=== PATIENT | female | born 1935 | race Caucasian/White ===

== ENCOUNTER 2023-10-26 13:52 | Outpatient (CLI) | payer MEDICARE, BC, SELFPAY | END 2023-10-26 13:53 | disposition home or self-care (01) | PROVIDERS: PCP Nurse Practitioner Family; Visit Provider Nurse Practitioner Family | DX: E11.9 Type 2 diabetes mellitus without complications (principal); Z13.0 Encounter for screening for diseases of the blood and blood-forming organs and certain disorders involving the immune mechanism | CPT/HCPCS: 80053; 80061; 82043; 82570; 84443; 85025 ==

== ENCOUNTER 2023-12-26 14:33 | Emergency (ER) | payer MEDICARE, BC, SELFPAY ==
[2023-12-26 14:39] VITALS: BP 180/99; PULSE 64; RESP 18; O2SAT 95; BMI 31.8
--- NOTE | 2023-12-26 14:50 | CT_ITS ---
Final Report Patient: MARGARITO TAYLOR Facility:?[facility] Patient ID:?[id number] Site Patient ID:?[id number]. Site :?[id number] Study:?CT Head W/O-12/26/2023 3:14:21 PM Ordering Physician:SARA Final Report: CLINICAL HISTORY: Fall on blood thinners. TECHNIQUE: Standard helical CT image acquisition of the brain was performed. COMPARISON: None available. FINDINGS: There is no intracranial hemorrhage. No extra-axial collection, mass effect, or midline shift. Quinones-white matter differentiation is preserved. Moderate generalized parenchymal volume loss with resulting prominence of cerebral sulci and the ventricular system. Patchy and confluent hypoattenuation in the white matter of both hemispheres likely reflect sequela of chronic small vessel ischemia. Intracranial atherosclerotic calcification. No displaced calvarial fracture. Thinning of the ocular lenses. Mild mucosal thickening of the inferior maxillary sinuses. The mastoid air cells are unremarkable. The soft tissues are unremarkable. IMPRESSION: 1. No CT evidence of acute intracranial abnormality or closed head injury. 2. Senescent changes including generalized parenchymal volume loss and findings likely reflecting sequela of chronic small vessel ischemia. Please note that all CT scans at this facility use dose modulation, iterative reconstruction, and/or weight-based dosing when appropriate to reduce radiation dose to as low as reasonably achievable. Dictated by Sajan Ramírez MD @ 12/26/2023 3:34:08 PM (Electronic Signature)
--- NOTE | 2023-12-26 15:07 | XR_ITS ---
Patient: MARGARITO TAYLOR Facility:?[facility] Patient ID:?[id number] Site Patient [id number]:?[id number]. Site :?[id number] Study:?XRay-Extremity Left SHOSEAN-12/26/2023 3:32:28 PM Ordering Physician:SARA Final Report: INDICATION: Fall, left shoulder pain. TECHNIQUE: Three views of the left shoulder. FINDINGS: No acute left shoulder fracture or dislocation. 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 Subacromial narrowing and spurring compatible with rotator cuff arthropathy. Dictated by Pablo Patel MD @ 12/26/2023 5:45:55 PM Signed by:?Pablo Patel MD @12/26/2023 5:45:55 PM (Electronic Signature)
--- NOTE | 2023-12-26 15:08 | ED.GENADULT ---
HPI - General Adult General Chief complaint: Extremity Pain/Injury, Upper Stated complaint: Fall, L shoulder injury Time Seen by Provider: 12/26/23 14:38 History of Present Illness HPI narrative: This 88-year-old female comes in for evaluation after a fall that occurred just prior to arrival. She states that she got wobbly and lost her balance and fell onto her left side. She did bump her head but did not have any loss of consciousness and does not have any headache. She got some assistance to get up and has ambulated since the fall. She is reporting pain primarily in her left shoulder. She is on Eliquis for atrial fibrillation. She does not report any other injury. Related Data Home Medications Medication Instructions Recorded Confirmed apixaban 2.5 mg tablet (Eliquis) 2.5 mg PO BID 10/26/23 12/26/23 escitalopram oxalate 10 mg tablet 10 mg PO QDAY 10/26/23 10/26/23 furosemide 20 mg tablet 20 mg PO DAILY 10/26/23 10/26/23 insulin glargine 100 unit/mL (3 17 unit subcut QDAY 10/26/23 12/26/23 mL) subcutaneous pen (Lantus Solostar U-100 Insulin) isosorbide mononitrate 30 mg 30 mg PO QAM 10/26/23 10/26/23 tablet,extended release 24 hr lubiprostone 24 mcg capsule 24 mcg PO BID 10/26/23 12/26/23 lubiprostone 8 mcg capsule 8 mcg PO QDAY PRN 10/26/23 12/26/23 (Amitiza) metoprolol tartrate 25 mg tablet 12.5 mg PO BID 10/26/23 12/26/23 mirtazapine 15 mg tablet 15 mg PO QPM 10/26/23 12/26/23 omeprazole 40 mg capsule,delayed 40 mg PO DAILY 10/26/23 12/26/23 release oxycodone 10 mg tablet 10 mg PO Q8H PRN pain 10/26/23 12/26/23 pen needle, diabetic 32 gauge x #100 ea 10/26/23 10/26/2311/11 (BD Ultra-Fine Micro Pen Needle) pregabalin 50 mg capsule (Lyrica) 50 mg PO BID 10/26/23 12/26/23 sennosides 8.6 mg-docusate sodium 1 tab PO BID 10/26/23 10/26/23 50 mg tablet (Senna Plus) Allergies Allergy/AdvReac Type Severity Reaction Status Date / Time diatrizoate meglumine Allergy Hives Verified 12/26/23 14:44 phenobarbital Allergy Verified 12/26/23 14:44 propoxyphene [From Darvon] Allergy Verified 12/26/23 14:44 contrast AdvReac Unknown Uncoded 12/26/23 14:45 Review of Systems Status of ROS: Reports: 10 or more systems reviewed and unremarkable except as noted in History and below Narrative: Constitutional: No fevers, no weight gain or loss. Eyes: No discharge. No vision changes. HENT: No congestion, no sore throat, no ear pain. Cardiovascular: No chest pain, no palpitations. Respiratory: No shortness of breath, no wheezes, no cough. Gastrointestinal: No abdominal pain, no vomiting, no diarrhea. Genitourinary: No dysuria, no hematuria. Musculoskeletal: Diffuse left shoulder pain. Skin: No rashes, no pruritis. Neurological: No dizziness, weakness, sensory change, speech change. Endo/Heme/Allergies: No bruising or bleeding. No polydipsia. Pysch: no suicidality, no anxiety, no insomnia. All other systems reviewed and are negative. PFSH PFS Surgical History (Updated 11/23/23 @ 15:19 by Anisa Matthews APRN, [employer]CHO[employer] COMMISSIONER) History of appendectomy ?Z90.49 - Acquired absence of other specified parts of digestive tract (ICD-10) History of hysterectomy ?Z90.710 - Acquired absence of both cervix and uterus (ICD-10) Spinal cord stimulator status ?Z96.89 - Presence of other specified functional implants (ICD-10) History of carpal tunnel release ?Z98.890 - Other specified postprocedural states (ICD-10) History of permanent cardiac pacemaker placement ?Z95.0 - Presence of cardiac pacemaker (ICD-10) History of knee replacement ?Z96.659 - Presence of unspecified artificial knee joint (ICD-10) Family History (Updated 11/03/23 @ 06:15 by Anisa Matthews APRN, SCHOOL COMMISSIONER) Father Heart disease Mother Heart disease Breast cancer Son Colon cancer, Onset Age: 47 Social History (Updated 11/03/23 @ 06:10 by Anisa Matthews APRN, SCHOOL COMMISSIONER) Narrative: The patient is . 2 children. Limited exercise. Non-smoker. Alcohol rare. No illicit drug use. Exam Narrative: Exam Narrative: Constitutional: Well-developed, well-nourished, no acute distress. HEENT: Normocephalic, atraumatic. Neck: Normal range of motion. Nontender. Supple. Heart: Regular. No murmurs. Normal rate. Intact distal pulses. Lungs: Clear to auscultation. No chest discomfort. No wheezes, rhonchi, or rales. Abdomen: Normal bowel sounds. Nontender. No rebound tenderness. Genitalia: Deferred. Back: No midline tenderness. Normal range of motion. Extremities: Diffuse pain in the left shoulder without sign of obvious deformity. Skin: Intact. No rash. Warm. No erythema or pallor. Neurologic: No altered sensation. No weakness. Alert and oriented. Psychiatric: No suicidality. No anxiety or depression. No insomnia. Nursing notes and vitals signs are reviewed. Const: Vital Signs, click to edit/add: Vital Signs - 24 hr 12/26/23 14:39 12/26/23 15:38 12/26/23 16:06 Pulse Rate 64 75 Pulse Rate [Right Pulse Oximeter] 64 Respiratory Rate 18 Blood Pressure Blood Pressure [Ri ght Upper Arm] 180/99 H Pulse Oximetry 95 96 95 Oxygen Delivery Me thod Room Air 12/26/23 16:08 Pulse Rate 67 Pulse Rate [Right Pulse Oximeter] Respiratory Rate Blood Pressure 177/85 H Blood Pressure [Ri ght Upper Arm] Pulse Oximetry 97 Oxygen Delivery Me thod Course Vital Signs Vital signs: Initial Vital Signs Temperature Source Temporal Artery Scan 12/26/23 14:39 Pulse Rate 64 12/26/23 14:39 Respiratory Rate 18 12/26/23 14:39 Blood Pressure 180/99 H 12/26/23 14:39 Blood Pressure Mean 126 H 12/26/23 14:39 Blood Pressure Position Sitting 12/26/23 14:39 Pulse Oximetry 95 12/26/23 14:39 Oxygen Delivery Method Room Air 12/26/23 14:39 Vital Signs Pulse Rate 64 12/26/23 14:39 Respiratory Rate 18 12/26/23 14:39 Blood Pressure 180/99 H 12/26/23 14:39 Pulse Oximetry 95 12/26/23 14:39 Oxygen Delivery Method Room Air 12/26/23 14:39 Pulse Rate 67 12/26/23 16:08 Respiratory Rate 18 12/26/23 14:39 Blood Pressure 177/85 H 12/26/23 16:08 Pulse Oximetry 97 12/26/23 16:08 Oxygen Delivery Method Room Air 12/26/23 14:39 Medical Decision Making MDM Narrative Medical decision making narrative: This patient comes in for evaluation of injuries from a fall that occurred just prior to arrival. Her primary area of discomfort is her left shoulder. A CT scan of her head is obtained as she did bump her head but did not have loss of consciousness and she is also on anticoagulants. CT imaging and x-ray of the left shoulder by my review show no acute findings. The patient normally takes oxycodone 3 times a day. She did receive a 5 mg tablet here and will be able to use that regular medicine for her for ongoing management of pain from this injury. She also received a sling for her left upper extremity. Discharge Plan Discharge Clinical Impression: Contusion of left shoulder Patient Disposition: Home w/ Parent or Adult Condition: Stable Additional Instructions: Wear sling as needed. Increase activity as tolerated. Use pain medicines also as prescribed and needed. Return if worsening. Prescriptions: No Action pregabalin [Lyrica] 50 mg capsule 50 mg PO BID lubiprostone [Amitiza] 8 mcg capsule 8 mcg PO QDAY PRN Eliquis 2.5 mg tablet 2.5 mg PO BID escitalopram oxalate 10 mg tablet 10 mg PO QDAY furosemide 20 mg tablet 20 mg PO DAILY insulin glargine [Lantus Solostar U-100 Insulin] 100 unit/mL (3 mL) insulin pen 17 unit subcut QDAY isosorbide mononitrate 30 mg tablet extended release 24 hr 30 mg PO QAM lubiprostone 24 mcg capsule 24 mcg PO BID metoprolol tartrate 25 mg tablet 12.5 mg PO BID mirtazapine 15 mg tablet 15 mg PO QPM omeprazole 40 mg capsule,delayed release(DR/EC) 40 mg PO DAILY oxycodone 10 mg tablet 10 mg PO Q8H PRN (Reason: pain) sennosides-docusate sodium [Senna Plus] 8.6-50 mg tablet 1 tab PO BID (DME) pen needle, diabetic [BD Ultra-Fine Micro Pen Needle] 32 gauge x 1/4 needle See Rx Instructions .ROUTE DAILY Qty: 100 Rx Instructions: As directed Follow Up/Referrals: Anisa Matthews APRN, SCHOOL COMMISSIONER [Primary Care Provider] - Stand Alone Forms: MyHealth Info Instructions
[2023-12-26 15:38] VITALS: PULSE 64; O2SAT 96
[2023-12-26 16:06] VITALS: PULSE 75; O2SAT 95
[2023-12-26 16:08] VITALS: BP 177/85; PULSE 67; O2SAT 97
[2023-12-26] MEDS: OXYCODONE 5 MG TABLET PO (16:27)
== END 2023-12-26 16:28 | disposition home or self-care (01) ==
PROVIDERS: Emergency Provider Emergency Medicine Emergency Medical Services; PCP Nurse Practitioner Family
DX: S40.012A Contusion of left shoulder, initial encounter (principal); W18.30XA Fall on same level, unspecified, initial encounter
CPT/HCPCS: 70450; 73030; 99284; A9270

== ENCOUNTER 2023-12-30 14:46 | Emergency (ER) | payer MEDICARE, BC, SELFPAY ==
[2023-12-30 14:54] VITALS: BP 133/105; PULSE 80; RESP 18; TEMP 36.5; O2SAT 96; BMI 32.1
--- NOTE | 2023-12-30 15:11 | CT_ITS ---
Patient: MARGARITO TAYLOR Facility:?[facility] Patient ID:?[id number] Site Patient ID:?[id number]. Site :?[id number] Study:?CT-Head W/O-12/30/2023 5:10:26 PM Ordering Physician:ELLEN Final Report: INDICATION: Fall. TECHNIQUE: CT head without contrast. COMPARISON: December 26, 2023.. FINDINGS: CSF spaces: Diffuse parenchymal volume loss Brain parenchyma and extra-axial spaces: Chronic white matter ischemic disease. The frias-white differentiation is normal. No sign of mass, hemorrhage, or midline shift. No extra-axial fluid collection. Skull base and calvarium: The visualized paranasal sinuses and mastoid air cells demonstrate no acute or significant findings. The visualized orbits are grossly unremarkable. No skull fractures. IMPRESSION: No acute intracranial abnormality or significant interval change when compared to prior study. Diffuse parenchymal volume loss and white matter ischemic disease. Please note that all CT scans at this facility use dose modulation, iterative reconstruction, and/or weight-based dosing when appropriate to reduce radiation dose to as low as reasonably achievable. Dictated by Joel Kim MD @ 12/30/2023 5:37:01 PM Signed by:?Joel Kim MD @12/30/2023 5:37:01 PM (Electronic Signature)
--- NOTE | 2023-12-30 15:24 | ED.GENADULT ---
HPI - General Adult General Date Seen: 12/30/23 Chief complaint: Weakness Stated complaint: Lethargy, confusion, short of breath Time Seen by Provider: 12/30/23 14:47 Source: patient, RN notes reviewed and old records reviewed Mode of arrival: ambulatory Limitations: no limitations History of Present Illness HPI narrative: Patient is an 88-year-old female who was here on December 26 after mechanical fall with left shoulder injury. She did hurt her head, she is anticoagulated and she had a head CT as well as x-rays of the left shoulder both of which were negative. She notes that she has ongoing left shoulder pain. Her daughter was concerned because she says she is sleeping a lot and has been forgetting to take her medications. Patient denies headache or vomiting. Her only complaint is left shoulder pain. She says she was relaxing at home when her daughter came to get her to bring her to the ER. She has no fevers, cough, difficulty breathing, chest pain, vomiting or diarrhea. She does note frequent urination overnight, no dysuria. She has [place] diuretic that she takes only as needed and says she has not taken any the past couple of days. Related Data Home Medications Medication Instructions Recorded Confirmed apixaban 2.5 mg tablet (Eliquis) 2.5 mg PO BID 10/26/23 12/26/23 escitalopram oxalate 10 mg tablet 10 mg PO QDAY 10/26/23 10/26/23 furosemide 20 mg tablet 20 mg PO DAILY 10/26/23 10/26/23 insulin glargine 100 unit/mL (3 17 unit subcut QDAY 10/26/23 12/26/23 mL) subcutaneous pen (Lantus Solostar U-100 Insulin) isosorbide mononitrate 30 mg 30 mg PO QAM 10/26/23 10/26/23 tablet,extended release 24 hr lubiprostone 24 mcg capsule 24 mcg PO BID 10/26/23 12/26/23 lubiprostone 8 mcg capsule 8 mcg PO QDAY PRN 10/26/23 12/26/23 (Amitiza) metoprolol tartrate 25 mg tablet 12.5 mg PO BID 10/26/23 12/26/23 mirtazapine 15 mg tablet 15 mg PO QPM 10/26/23 12/26/23 omeprazole 40 mg capsule,delayed 40 mg PO DAILY 10/26/23 12/26/23 release oxycodone 10 mg tablet 10 mg PO Q8H PRN pain 10/26/23 12/26/23 pen needle, diabetic 32 gauge x #100 ea 10/26/23 10/26/23/ (BD Ultra-Fine Micro Pen Needle) pregabalin 50 mg capsule (Lyrica) 50 mg PO BID 10/26/23 12/26/23 sennosides 8.6 mg-docusate sodium 1 tab PO BID 10/26/23 10/26/23 50 mg tablet (Senna Plus) Allergies Allergy/AdvReac Type Severity Reaction Status Date / Time diatrizoate meglumine Allergy Hives Verified 12/26/23 14:44 phenobarbital Allergy Verified 12/26/23 14:44 propoxyphene [From Darvon] Allergy Verified 12/26/23 14:44 contrast AdvReac Unknown Uncoded 12/26/23 14:45 Review of Systems Status of ROS: Reports: 10 or more systems reviewed and unremarkable except as noted in History and below PFSH PFSH Surgical History History of appendectomy ?Z90.49 - Acquired absence of other specified parts of digestive tract (ICD-10) History of hysterectomy ?Z90.710 - Acquired absence of both cervix and uterus (ICD-10) Spinal cord stimulator status ?Z96.89 - Presence of other specified functional implants (ICD-10) History of carpal tunnel release ?Z98.890 - Other specified postprocedural states (ICD-10) History of permanent cardiac pacemaker placement ?Z95.0 - Presence of cardiac pacemaker (ICD-10) History of knee replacement ?Z96.659 - Presence of unspecified artificial knee joint (ICD-10) Family History Father Heart disease Mother Heart disease Breast cancer Son Colon cancer, Onset Age: 47 Social History Narrative: The patient is . 2 children. Limited exercise. Non-smoker. Alcohol rare. No illicit drug use. Smoking Status: Never smoker Do you use any of these nicotine containing products: None How often do you have a drink containing alcohol: never How often do you have six or more drinks on one occasion: Never AUDIT-C Alcohol total score: 0 Non-prescribed substance use: denies use Exam Narrative: Exam Narrative: Vital signs as noted above. In general, an alert, well-appearing patient. Head: Normocephalic, atraumatic. Eyes: Pupils are equal reactive. Extraocular movements are full. Conjunctivae are normal. ENT: Mucous membranes are moist. Neck: Supple without lymphadenopathy. Heart: Regular rate and rhythm. No murmur or rub. Lungs: Clear bilaterally. No increased work of breathing, crackles or wheezes. Abdomen: Soft and nontender. No organomegaly. Extremities: Trace edema in both ankles. No calf tenderness or erythema. On the left she has little bit of bruising seen in the anterior shoulder. She has limited range of motion both active and passive secondary to pain. Neurologic: Patient is alert and oriented to person and place. Speech is fluent. Face is symmetric. Moves all extremities equally. Affect: Normal. Skin: Warm and dry. Well perfused. Const: Vital Signs, click to edit/add: Vital Signs - 24 hr 12/30/23 14:54 12/30/23 17:10 Temperature 97.7 F Pulse Rate [Left P ulse Oximeter] 80 63 Respiratory Rate 18 16 Blood Pressure [Le ft Upper Arm] 133/105 H 135/69 Pulse Oximetry 96 94 Oxygen Delivery Me thod Room Air Room Air Documenting provider has reviewed patient's vital signs: yes Course Course ED Course: I did repeat her head CT given that her daughter feels that she is more somnolent than usual and that she is anticoagulated. By my review there is no evidence of hemorrhage. Final radiology read shows no acute intracranial abnormalities or significant interval change. Labs are notable for a normal white blood cell count of 6, hemoglobin of 13.4. Platelets are little low 129,000. Sodium is 132, BUN 38 creatinine 1.3. Electrolytes otherwise normal. Her blood sugars elevated at 425. Her daughter says that her blood sugars are not well controlled because she does not follow any kind of diabetic diet. She is on insulin at home. Urine shows glucose but she does not have any ketones. Her CO2 is 26. There is no evidence here of ketoacidosis or hyperosmolar coma. She does sleep when not being interacted with but wakes easily to voice. Continues to answer questions appropriately. Urine does look probably infected with 5-10 red cells and greater than 100 white blood cells, many bacteria. COVID influenza and RSV are negative. She is afebrile here, neurologic exam is nonfocal, vital signs are unremarkable. I do think it is reasonable for her to go home on an oral antibiotic. Discussed that she may need help with her medications for the next couple of days as her daughter says she has not been good about taking them, and I would like her to take the antibiotic as prescribed. Reviewed with her daughter that if she is not improving, develops new symptoms such as fevers, chills, vomiting, or is not responding normally when interacted with, she should return to the emergency department. With regard her shoulder, I reviewed those x-rays, she does have significant arthritis are ready, she is very hesitant to move the shoulder at all because of pain and I do think she is high risk for frozen shoulder. Recommend orthopedic follow-up, an injection may be helpful for her to improve mobility. Tylenol and ice as needed. Vital Signs Vital signs: Initial Vital Signs Temperature 97.7 F 12/30/23 14:54 Temperature Source Temporal Artery Scan 12/30/23 14:54 Pulse Rate 80 12/30/23 14:54 Pulse Rhythm Regular 12/30/23 14:54 Pulse Strength 3+ Normal 12/30/23 14:54 Respiratory Rate 18 12/30/23 14:54 Blood Pressure 133/105 H 12/30/23 14:54 Blood Pressure Mean 114 H 12/30/23 14:54 Blood Pressure Position Sitting 12/30/23 14:54 Pulse Oximetry 96 12/30/23 14:54 Oxygen Delivery Method Room Air 12/30/23 14:54 Vital Signs Temperature 97.7 F 12/30/23 14:54 Pulse Rate 80 12/30/23 14:54 Respiratory Rate 18 12/30/23 14:54 Blood Pressure 133/105 H 12/30/23 14:54 Pulse Oximetry 96 12/30/23 14:54 Oxygen Delivery Method Room Air 12/30/23 14:54 Temperature 97.7 F 12/30/23 14:54 Pulse Rate 63 12/30/23 17:10 Respiratory Rate 16 12/30/23 17:10 Blood Pressure 135/69 12/30/23 17:10 Pulse Oximetry 94 12/30/23 17:10 Oxygen Delivery Method Room Air 12/30/23 17:10 Medical Decision Making Lab Data Labs: Lab Results 12/30/23 12/30/23 12/30/23 Range/Units 16:13 16:35 16:45 WBC 6.11 (4.50-11.00) K/uL RBC 4.74 (4.00-5.20) m/uL Hgb 13.4 (12.0-16.0) gm/dL Hct 39.5 (33.0-51.0) % MCV 83 (80-100) fL MCH 28 (26-34) pg MCHC 34 (32-36) gm/dL RDW Coeff of [place] 12.4 (11.5-15.5) % Plt Count 129 L (140-440) K/uL Neut % (Auto) 73.4 H (42.0-72.0) % Lymph % (Auto) 16.4 L (20-44) % [place] % (Auto) 9.0 (0.0-11.0) % Eos % (Auto) 0.7 (0.0-7.0) % Baso % (Auto) 0.3 (0.0-3.0) % Neut # (Auto) 4.50 (1.7-7.0) K/uL Lymph # (Auto) 1.00 (0.90-2.90) K/uL [place] # (Auto) 0.50 (0.00-0.90) K/UL Eos # (Auto) 0.04 (0.00-0.50) K/uL Baso # (Auto) 0.02 (0.00-0.30) K/uL Abs Immat Gran (auto) 0.01 (0.00-0.30) K/uL Imm/Tot Granulo (auto) 0.2 % Sodium 132 L (135-149) mmol/L Potassium 4.6 (3.6-5.1) mmol/L Chloride 98 (96-114) mmol/L Carbon Dioxide 26 (20-32) mmol/L Anion Gap 8 (7-15) mEq/L BUN 38 H (7-30) mg/dL Creatinine 1.3 (0.5-1.5) mg/dL Estimated Creat Clear 27.43 Estimated GFR 40 ml/min Glucose 425 H* (60-115) mg/dL Calcium 9.7 (8.4-10.6) mg/dL C-Reactive Protein 4.5 H (0.5-1.0) mg/dL Urine Color Yellow (Yellow) Urine Appearance (Clear) Urine pH (5.0-8.5) Ur Specific [place] (1.000-1.030) Urine Protein (Negative) Urine Glucose (UA) (Negative) Urine Ketones (Negative) Urine Blood (Negative) Urine Nitrite (Negative) Urine Bilirubin (Negative) Urine Urobilinogen (0.2-1.0) Ur Leukocyte Esterase (Negative) Urine RBC (0-2) Urine WBC (0-5) Urine WBC Clumps Ur Squamous Epith Cells (None-Few) [place] Biurate Crystals Calcium Carbonate Cryst Calcium Phosphate Cryst Calcium Oxalate Crystal Cystine Crystals Uric Acid Crystals Triple Phos Crystals Sulfur Crystals Cholesterol Crystals Tyrosine Crystals Hippuric Acid Crystals Amorphous Sediment Other Sediment Urine Bacteria (None) Fatty Casts Hyaline Casts Fine Granular Casts Coarse Granular Casts Waxy Casts RBC Casts WBC Casts Other Casts Urine Starch Urine Mucus Urine Trichomonas Urine Yeast SARS-CoV-2 (PCR) Negative SARS-CoV-2 (Negative) Influenza Type A (PCR) Negative PCR FLU A (Negative) Influenza Type B (PCR) Negative PCR FLU B (Negative) RSV (PCR) Negative PCR RSV (Negative) 12/30/23 12/30/23 12/30/23 Range/Units 16:45 16:45 16:45 WBC (4.50-11.00) K/uL RBC (4.00-5.20) m/uL Hgb (12.0-16.0) gm/dL Hct (33.0-51.0) % MCV (80-100) fL MCH (26-34) pg MCHC (32-36) gm/dL RDW Coeff of [place] (11.5-15.5) % Plt Count (140-440) K/uL Neut % (Auto) (42.0-72.0) % Lymph % (Auto) (20-44) % [place] % (Auto) (0.0-11.0) % Eos % (Auto) (0.0-7.0) % Baso % (Auto) (0.0-3.0) % Neut # (Auto) (1.7-7.0) K/uL Lymph # (Auto) (0.90-2.90) K/uL [place] # (Auto) (0.00-0.90) K/UL Eos # (Auto) (0.00-0.50) K/uL Baso # (Auto) (0.00-0.30) K/uL Abs Immat Gran (auto) (0.00-0.30) K/uL Imm/Tot Granulo (auto) % Sodium (135-149) mmol/L Potassium (3.6-5.1) mmol/L Chloride (96-114) mmol/L Carbon Dioxide (20-32) mmol/L Anion Gap (7-15) mEq/L BUN (7-30) mg/dL Creatinine (0.5-1.5) mg/dL Estimated Creat Clear Estimated GFR ml/min Glucose (60-115) mg/dL Calcium (8.4-10.6) mg/dL C-Reactive Protein (0.5-1.0) mg/dL Urine Color Cancelled (Yellow) Urine Appearance Slightly Cloudy A Cancelled (Clear) Urine pH 5.5 Cancelled (5.0-8.5) Ur Specific [place] 1.020 (1.000-1.030) Urine Protein (Negative) Urine Glucose (UA) (Negative) Urine Ketones (Negative) Urine Blood (Negative) Urine Nitrite (Negative) Urine Bilirubin (Negative) Urine Urobilinogen (0.2-1.0) Ur Leukocyte Esterase (Negative) Urine RBC (0-2) Urine WBC (0-5) Urine WBC Clumps Ur Squamous Epith Cells (None-Few) [place] Biurate Crystals Calcium Carbonate Cryst Calcium Phosphate Cryst Calcium Oxalate Crystal Cystine Crystals Uric Acid Crystals Triple Phos Crystals Sulfur Crystals Cholesterol Crystals Tyrosine Crystals Hippuric Acid Crystals Amorphous Sediment Other Sediment Urine Bacteria (None) Fatty Casts Hyaline Casts Fine Granular Casts Coarse Granular Casts Waxy Casts RBC Casts WBC Casts Other Casts Urine Starch Urine Mucus Urine Trichomonas Urine Yeast SARS-CoV-2 (PCR) (Negative) Influenza Type A (PCR) (Negative) Influenza Type B (PCR) (Negative) RSV (PCR) (Negative) 12/30/23 12/30/23 12/30/23 Range/Units 16:45 16:45 16:45 WBC (4.50-11.00) K/uL RBC (4.00-5.20) m/uL Hgb (12.0-16.0) gm/dL Hct (33.0-51.0) % MCV (80-100) fL MCH (26-34) pg MCHC (32-36) gm/dL RDW Coeff of [place] (11.5-15.5) % Plt Count (140-440) K/uL Neut % (Auto) (42.0-72.0) % Lymph % (Auto) (20-44) % [place] % (Auto) (0.0-11.0) % Eos % (Auto) (0.0-7.0) % Baso % (Auto) (0.0-3.0) % Neut # (Auto) (1.7-7.0) K/uL Lymph # (Auto) (0.90-2.90) K/uL [place] # (Auto) (0.00-0.90) K/UL Eos # (Auto) (0.00-0.50) K/uL Baso # (Auto) (0.00-0.30) K/uL Abs Immat Gran (auto) (0.00-0.30) K/uL Imm/Tot Granulo (auto) % Sodium (135-149) mmol/L Potassium (3.6-5.1) mmol/L Chloride (96-114) mmol/L Carbon Dioxide (20-32) mmol/L Anion Gap (7-15) mEq/L BUN (7-30) mg/dL Creatinine (0.5-1.5) mg/dL Estimated Creat Clear Estimated GFR ml/min Glucose (60-115) mg/dL Calcium (8.4-10.6) mg/dL C-Reactive Protein (0.5-1.0) mg/dL Urine Color (Yellow) Urine Appearance (Clear) Urine pH (5.0-8.5) Ur Specific [place] Cancelled (1.000-1.030) Urine Protein 1+ A Cancelled (Negative) Urine Glucose (UA) 3+ A Cancelled (Negative) Urine Ketones Negative (Negative) Urine Blood (Negative) Urine Nitrite (Negative) Urine Bilirubin (Negative) Urine Urobilinogen (0.2-1.0) Ur Leukocyte Esterase (Negative) Urine RBC (0-2) Urine WBC (0-5) Urine WBC Clumps Ur Squamous Epith Cells (None-Few) [place] Biurate Crystals Calcium Carbonate Cryst Calcium Phosphate Cryst Calcium Oxalate Crystal Cystine Crystals Uric Acid Crystals Triple Phos Crystals Sulfur Crystals Cholesterol Crystals Tyrosine Crystals Hippuric Acid Crystals Amorphous Sediment Other Sediment Urine Bacteria (None) Fatty Casts Hyaline Casts Fine Granular Casts Coarse Granular Casts Waxy Casts RBC Casts WBC Casts Other Casts Urine Starch Urine Mucus Urine Trichomonas Urine Yeast SARS-CoV-2 (PCR) (Negative) Influenza Type A (PCR) (Negative) Influenza Type B (PCR) (Negative) RSV (PCR) (Negative) 12/30/23 12/30/23 12/30/23 Range/Units 16:45 16:45 16:45 WBC (4.50-11.00) K/uL RBC (4.00-5.20) m/uL Hgb (12.0-16.0) gm/dL Hct (33.0-51.0) % MCV (80-100) fL MCH (26-34) pg MCHC (32-36) gm/dL RDW Coeff of [place] (11.5-15.5) % Plt Count (140-440) K/uL Neut % (Auto) (42.0-72.0) % Lymph % (Auto) (20-44) % [place] % (Auto) (0.0-11.0) % Eos % (Auto) (0.0-7.0) % Baso % (Auto) (0.0-3.0) % Neut # (Auto) (1.7-7.0) K/uL Lymph # (Auto) (0.90-2.90) K/uL [place] # (Auto) (0.00-0.90) K/UL Eos # (Auto) (0.00-0.50) K/uL Baso # (Auto) (0.00-0.30) K/uL Abs Immat Gran (auto) (0.00-0.30) K/uL Imm/Tot Granulo (auto) % Sodium (135-149) mmol/L Potassium (3.6-5.1) mmol/L Chloride (96-114) mmol/L Carbon Dioxide (20-32) mmol/L Anion Gap (7-15) mEq/L BUN (7-30) mg/dL Creatinine (0.5-1.5) mg/dL Estimated Creat Clear Estimated GFR ml/min Glucose (60-115) mg/dL Calcium (8.4-10.6) mg/dL C-Reactive Protein (0.5-1.0) mg/dL Urine Color (Yellow) Urine Appearance (Clear) Urine pH (5.0-8.5) Ur Specific [place] (1.000-1.030) Urine Protein (Negative) Urine Glucose (UA) (Negative) Urine Ketones Cancelled (Negative) Urine Blood 2+ A Cancelled (Negative) Urine Nitrite Positive A Cancelled (Negative) Urine Bilirubin Negative (Negative) Urine Urobilinogen (0.2-1.0) Ur Leukocyte Esterase (Negative) Urine RBC (0-2) Urine WBC (0-5) Urine WBC Clumps Ur Squamous Epith Cells (None-Few) [place] Biurate Crystals Calcium Carbonate Cryst Calcium Phosphate Cryst Calcium Oxalate Crystal Cystine Crystals Uric Acid Crystals Triple Phos Crystals Sulfur Crystals Cholesterol Crystals Tyrosine Crystals Hippuric Acid Crystals Amorphous Sediment Other Sediment Urine Bacteria (None) Fatty Casts Hyaline Casts Fine Granular Casts Coarse Granular Casts Waxy Casts RBC Casts WBC Casts Other Casts Urine Starch Urine Mucus Urine Trichomonas Urine Yeast SARS-CoV-2 (PCR) (Negative) Influenza Type A (PCR) (Negative) Influenza Type B (PCR) (Negative) RSV (PCR) (Negative) 12/30/23 12/30/23 12/30/23 Range/Units 16:45 16:45 16:45 WBC (4.50-11.00) K/uL RBC (4.00-5.20) m/uL Hgb (12.0-16.0) gm/dL Hct (33.0-51.0) % MCV (80-100) fL MCH (26-34) pg MCHC (32-36) gm/dL RDW Coeff of [place] (11.5-15.5) % Plt Count (140-440) K/uL Neut % (Auto) (42.0-72.0) % Lymph % (Auto) (20-44) % [place] % (Auto) (0.0-11.0) % Eos % (Auto) (0.0-7.0) % Baso % (Auto) (0.0-3.0) % Neut # (Auto) (1.7-7.0) K/uL Lymph # (Auto) (0.90-2.90) K/uL [place] # (Auto) (0.00-0.90) K/UL Eos # (Auto) (0.00-0.50) K/uL Baso # (Auto) (0.00-0.30) K/uL Abs Immat Gran (auto) (0.00-0.30) K/uL Imm/Tot Granulo (auto) % Sodium (135-149) mmol/L Potassium (3.6-5.1) mmol/L Chloride (96-114) mmol/L Carbon Dioxide (20-32) mmol/L Anion Gap (7-15) mEq/L BUN (7-30) mg/dL Creatinine (0.5-1.5) mg/dL Estimated Creat Clear Estimated GFR ml/min Glucose (60-115) mg/dL Calcium (8.4-10.6) mg/dL C-Reactive Protein (0.5-1.0) mg/dL Urine Color (Yellow) Urine Appearance (Clear) Urine pH (5.0-8.5) Ur Specific [place] (1.000-1.030) Urine Protein (Negative) Urine Glucose (UA) (Negative) Urine Ketones (Negative) Urine Blood (Negative) Urine Nitrite (Negative) Urine Bilirubin Cancelled (Negative) Urine Urobilinogen 0.2 Cancelled (0.2-1.0) Ur Leukocyte Esterase 1+ A Cancelled (Negative) Urine RBC 5-10 A (0-2) Urine WBC (0-5) Urine WBC Clumps Ur Squamous Epith Cells (None-Few) [place] Biurate Crystals Calcium Carbonate Cryst Calcium Phosphate Cryst Calcium Oxalate Crystal Cystine Crystals Uric Acid Crystals Triple Phos Crystals Sulfur Crystals Cholesterol Crystals Tyrosine Crystals Hippuric Acid Crystals Amorphous Sediment Other Sediment Urine Bacteria (None) Fatty Casts Hyaline Casts Fine Granular Casts Coarse Granular Casts Waxy Casts RBC Casts WBC Casts Other Casts Urine Starch Urine Mucus Urine Trichomonas Urine Yeast SARS-CoV-2 (PCR) (Negative) Influenza Type A (PCR) (Negative) Influenza Type B (PCR) (Negative) RSV (PCR) (Negative) 12/30/23 12/30/23 12/30/23 Range/Units 16:45 16:45 16:45 WBC (4.50-11.00) K/uL RBC (4.00-5.20) m/uL Hgb (12.0-16.0) gm/dL Hct (33.0-51.0) % MCV (80-100) fL MCH (26-34) pg MCHC (32-36) gm/dL RDW Coeff of [place] (11.5-15.5) % Plt Count (140-440) K/uL Neut % (Auto) (42.0-72.0) % Lymph % (Auto) (20-44) % [place] % (Auto) (0.0-11.0) % Eos % (Auto) (0.0-7.0) % Baso % (Auto) (0.0-3.0) % Neut # (Auto) (1.7-7.0) K/uL Lymph # (Auto) (0.90-2.90) K/uL [place] # (Auto) (0.00-0.90) K/UL Eos # (Auto) (0.00-0.50) K/uL Baso # (Auto) (0.00-0.30) K/uL Abs Immat Gran (auto) (0.00-0.30) K/uL Imm/Tot Granulo (auto) % Sodium (135-149) mmol/L Potassium (3.6-5.1) mmol/L Chloride (96-114) mmol/L Carbon Dioxide (20-32) mmol/L Anion Gap (7-15) mEq/L BUN (7-30) mg/dL Creatinine (0.5-1.5) mg/dL Estimated Creat Clear Estimated GFR ml/min Glucose (60-115) mg/dL Calcium (8.4-10.6) mg/dL C-Reactive Protein (0.5-1.0) mg/dL Urine Color (Yellow) Urine Appearance (Clear) Urine pH (5.0-8.5) Ur Specific [place] (1.000-1.030) Urine Protein (Negative) Urine Glucose (UA) (Negative) Urine Ketones (Negative) Urine Blood (Negative) Urine Nitrite (Negative) Urine Bilirubin (Negative) Urine Urobilinogen (0.2-1.0) Ur Leukocyte Esterase (Negative) Urine RBC Cancelled (0-2) Urine WBC >100 A Cancelled (0-5) Urine WBC Clumps Cancelled Ur Squamous Epith Cells Moderate A Cancelled (None-Few) [place] Biurate Crystals Cancelled Calcium Carbonate Cryst Cancelled Calcium Phosphate Cryst Cancelled Calcium Oxalate Crystal Cancelled Cystine Crystals Cancelled Uric Acid Crystals Cancelled Triple Phos Crystals Cancelled Sulfur Crystals Cancelled Cholesterol Crystals Cancelled Tyrosine Crystals Cancelled Hippuric Acid Crystals Cancelled Amorphous Sediment Cancelled Other Sediment Cancelled Urine Bacteria Many A (None) Fatty Casts Hyaline Casts Fine Granular Casts Coarse Granular Casts Waxy Casts RBC Casts WBC Casts Other Casts Urine Starch Urine Mucus Urine Trichomonas Urine Yeast SARS-CoV-2 (PCR) (Negative) Influenza Type A (PCR) (Negative) Influenza Type B (PCR) (Negative) RSV (PCR) (Negative) 12/30/23 Range/Units 16:45 WBC (4.50-11.00) K/uL RBC (4.00-5.20) m/uL Hgb (12.0-16.0) gm/dL Hct (33.0-51.0) % MCV (80-100) fL MCH (26-34) pg MCHC (32-36) gm/dL RDW Coeff of [place] (11.5-15.5) % Plt Count (140-440) K/uL Neut % (Auto) (42.0-72.0) % Lymph % (Auto) (20-44) % [place] % (Auto) (0.0-11.0) % Eos % (Auto) (0.0-7.0) % Baso % (Auto) (0.0-3.0) % Neut # (Auto) (1.7-7.0) K/uL Lymph # (Auto) (0.90-2.90) K/uL [place] # (Auto) (0.00-0.90) K/UL Eos # (Auto) (0.00-0.50) K/uL Baso # (Auto) (0.00-0.30) K/uL Abs Immat Gran (auto) (0.00-0.30) K/uL Imm/Tot Granulo (auto) % Sodium (135-149) mmol/L Potassium (3.6-5.1) mmol/L Chloride (96-114) mmol/L Carbon Dioxide (20-32) mmol/L Anion Gap (7-15) mEq/L BUN (7-30) mg/dL Creatinine (0.5-1.5) mg/dL Estimated Creat Clear Estimated GFR ml/min Glucose (60-115) mg/dL Calcium (8.4-10.6) mg/dL C-Reactive Protein (0.5-1.0) mg/dL Urine Color (Yellow) Urine Appearance (Clear) Urine pH (5.0-8.5) Ur Specific [place] (1.000-1.030) Urine Protein (Negative) Urine Glucose (UA) (Negative) Urine Ketones (Negative) Urine Blood (Negative) Urine Nitrite (Negative) Urine Bilirubin (Negative) Urine Urobilinogen (0.2-1.0) Ur Leukocyte Esterase (Negative) Urine RBC (0-2) Urine WBC (0-5) Urine WBC Clumps Ur Squamous Epith Cells (None-Few) [place] Biurate Crystals Calcium Carbonate Cryst Calcium Phosphate Cryst Calcium Oxalate Crystal Cystine Crystals Uric Acid Crystals Triple Phos Crystals Sulfur Crystals Cholesterol Crystals Tyrosine Crystals Hippuric Acid Crystals Amorphous Sediment Other Sediment Urine Bacteria Cancelled (None) Fatty Casts Cancelled Hyaline Casts Cancelled Fine Granular Casts Cancelled Coarse Granular Casts Cancelled Waxy Casts Cancelled RBC Casts Cancelled WBC Casts Cancelled Other Casts Cancelled Urine Starch Cancelled Urine Mucus Cancelled Urine Trichomonas Cancelled Urine Yeast Cancelled SARS-CoV-2 (PCR) (Negative) Influenza Type A (PCR) (Negative) Influenza Type B (PCR) (Negative) RSV (PCR) (Negative) Discharge Plan Discharge Clinical Impression: UTI (urinary tract infection), Hyperglycemia due to type 2 diabetes mellitus Patient Disposition: Home, Self-Care Condition: Stable Instructions: Urinary Tract Infection in Older Adults (ED) Additional Instructions: Antibiotic as prescribed for urinary tract infection. Continue your insulin as prescribed. I would recommend orthopedic follow-up for your shoulder as you have significant arthritis at baseline, and with your recent injury may benefit from an injection. Otherwise, Tylenol as needed. Ice may be helpful as well. Your repeat head CT remains unremarkable. For significant worsening, fevers, chills, vomiting, or other significant changes, return to the ER at any time for re-evaluation. Prescriptions: No Action pregabalin [Lyrica] 50 mg capsule 50 mg PO BID lubiprostone [Amitiza] 8 mcg capsule 8 mcg PO QDAY PRN Eliquis 2.5 mg tablet 2.5 mg PO BID escitalopram oxalate 10 mg tablet 10 mg PO QDAY furosemide 20 mg tablet 20 mg PO DAILY insulin glargine [Lantus Solostar U-100 Insulin] 100 unit/mL (3 mL) insulin pen 17 unit subcut QDAY isosorbide mononitrate 30 mg tablet extended release 24 hr 30 mg PO QAM lubiprostone 24 mcg capsule 24 mcg PO BID metoprolol tartrate 25 mg tablet 12.5 mg PO BID mirtazapine 15 mg tablet 15 mg PO QPM omeprazole 40 mg capsule,delayed release(DR/EC) 40 mg PO DAILY oxycodone 10 mg tablet 10 mg PO Q8H PRN (Reason: pain) sennosides-docusate sodium [Senna Plus] 8.6-50 mg tablet 1 tab PO BID (DME) pen needle, diabetic [BD Ultra-Fine Micro Pen Needle] 32 gauge x 1/4 needle See Rx Instructions .ROUTE DAILY Qty: 100 Rx Instructions: As directed Follow Up/Referrals: Anisa Matthews APRN, SYSTEMS COORDINATOR [Primary Care Provider] - [facility]
[2023-12-30 16:51] LABS: Basophils Absolute Auto 0.02 K/uL (0.00-0.30); Basophils Percent Auto 0.3 % (0.0-3.0); Eosinophils Absolute Auto 0.04 K/uL (0.00-0.50); Eosinophils Percent Auto 0.7 % (0.0-7.0); Hematocrit 39.5 % (33.0-51.0); Hemoglobin* 13.4 gm/dL (12.0-16.0); Immature Granulocytes Abs Auto 0.01 K/uL (0.00-0.30); Immature Granulocytes Pct Auto 0.2 %; Lymphocytes Percent Auto 16.4 % (20-44); Mean Corpuscular HGB Conc 34 gm/dL (32-36); Mean Corpuscular Hemoglobin 28 pg (26-34); Mean Corpuscular Volume 83 fL (80-100); Neutrophils Percent Auto 73.4 % (42.0-72.0); Platelet Count* 129 K/uL (140-440); RDW Coefficient of Variation % 12.4 % (11.5-15.5); Red Blood Count 4.74 m/uL (4.00-5.20); White Blood Count* 6.11 K/uL (4.50-11.00)
[2023-12-30 16:56] LABS: PCR FLU A Negative PCR FLU A (Negative); PCR FLU B Negative PCR FLU B (Negative); PCR RSV Negative PCR RSV (Negative); SARS PCR* Negative SARS-CoV-2 (Negative)
[2023-12-30 17:04] LABS: Bilirubin Urine Negative (Negative); Blood Urine 2+ (Negative); Color Urine Yellow (Yellow); Glucose Urine 3+ (Negative); Ketones Urine Negative (Negative); Leukocyte Esterase Urine 1+ (Negative); Nitrite Urine Positive (Negative); Protein Urine 1+ (Negative); Urobilinogen Urine 0.2 (0.2-1.0); pH Urine 5.5 (5.0-8.5)
[2023-12-30 17:07] LABS: Slide Review Reflex No
[2023-12-30 17:08] LABS: Appearance Urine Slightly Cloudy (Clear)
[2023-12-30 17:10] VITALS: BP 135/69; PULSE 63; RESP 16; O2SAT 94
[2023-12-30 17:11] LABS: Chloride* 98 mmol/L (96-114); Potassium* 4.6 mmol/L (3.6-5.1); Sodium* 132 mmol/L (135-149)
[2023-12-30 17:14] LABS: Creatinine* 1.3 mg/dL (0.5-1.5); Est. Creatinine Clearance* 27.43; Estimated Glomerular Filt Rate 40 ml/min
[2023-12-30 17:15] LABS: Anion Gap 8 mEq/L (7-15); Blood Urea Nitrogen* 38 mg/dL (7-30); Calcium* 9.7 mg/dL (8.4-10.6); Carbon Dioxide* 26 mmol/L (20-32)
[2023-12-30 17:16] LABS: WBC Urine >100 (0-5)
[2023-12-30 17:17] LABS: Bacteria Urine Many; Squamous Epithelial Cell Urine Moderate (None-Few)
[2023-12-30 17:18] LABS: C Reactive Protein* 4.5 mg/dL (0.5-1.0)
[2023-12-30 17:29] LABS: Glucose* 425 mg/dL (60-115)
[2023-12-30 19:04] LABS: TSH With Reflex to FT4* 0.653 uIU/mL (0.270-4.200)
== END 2023-12-30 18:30 | disposition home or self-care (01) ==
PROVIDERS: Emergency Provider Emergency Medicine; PCP Nurse Practitioner Family
DX: N39.0 Urinary tract infection, site not specified (principal); E11.65 Type 2 diabetes mellitus with hyperglycemia
CPT/HCPCS: 36415; 70450; 80048; 81001; 84443; 85025; 86140; 87086; 87186; 87631; 99284

== ENCOUNTER 2024-01-17 13:11 | Outpatient (CLI) | payer MEDICARE, BC, SELFPAY ==
--- NOTE | 2024-01-18 14:05 | PC.SOCIAL ---
Social work: Received referral from provider for social media marketing analyst to contact daughter regarding resources for support at home. Called daughter, Jasmyne George [phone], and discussed interest in having pt evaluated for eligibility for free home services or assisted living placement through the waiver program. Dtr states pt was evaluated four years ago for [employer] Care Assessment by the county she lived in at that time but was not eligible for [facility] programs due to her financial situation. Dtr states her financial situation has changed since that evaluation and requested a new Shelter Care Assessment. Dtr has already reached out to [facility] for home making assistance and is waiting for a call back. asbestos abatement worker offered to make online referral for [employer] Care Assessment through the [facility] [facility]. Dtr was appreciative of this suggestion. asbestos abatement worker emailed dtr information on [employer] Care Assessment, [facility], caregivers homecare care and home delivered meals. asbestos abatement worker completed online request for Shelter Care Assessment through [facility] (confirmation #[id number]). Dtr was provided with this social media marketing analyst's contact information if additional resources are needed.
== END 2024-01-17 13:12 | disposition home or self-care (01) ==
PROVIDERS: PCP Nurse Practitioner Family; Visit Provider Nurse Practitioner Family
DX: E11.9 Type 2 diabetes mellitus without complications (principal)
CPT/HCPCS: 82947

== ENCOUNTER 2024-02-24 13:20 | Outpatient (CLI) | payer MEDICARE, BC, SELFPAY | END 2024-02-24 13:21 | disposition home or self-care (01) | LOC: KYNREF 13:22 | PROVIDERS: PCP Nurse Practitioner Family; Visit Provider Nurse Practitioner Family | DX: R35.1 Nocturia (principal) | CPT/HCPCS: 81001; 87086 ==

== ENCOUNTER 2024-03-16 14:55 | Outpatient (CLI) | payer MEDICARE, BC, SELFPAY ==
--- NOTE | 2024-03-16 15:00 | XR_ITS ---
Patient: MARGARITO TAYLOR Facility:?[facility] Patient ID:?[id number] Site Patient ID:?[id number]. Site :?[id number] Study:?DEXA-Bone Density -03/16/2024 3:48:11 PM Ordering Physician:FLORENCIA Final Report: DXA BONE MINERAL DENSITY STUDY Reason for exam: Osteoporosis. Current height (in): 65.0 Weight (lb): 198.0 Menopause age: 51 Ethnicity: White. 1. Have you had a previous hip or vertebral fracture? No. 2. Have you had any fractures during your adult life which did not result from significant trauma (e.g., auto accident)? No. 3. Did either of your parents have a hip fracture? No. 4. Do you smoke? No. 5. Have you ever taken Glucocorticoids? No. 6. Do you have rheumatoid arthritis? No. 7. Do you have secondary osteoporosis? No. 8. Do you drink 3 or more alcoholic drinks per day? No. 9. Are you being treated for osteoporosis? No. 10. Have you ever taken any of the following medications: Actonel, Evista, Fosamax, Miacalcin, Reclast, Boniva, Forteo, HRT (i.e. estrogen/hormone therapy), Protelos, Prolia, Vitamin D, Calcium, other ? please specify. ANSWER: Yes. Vitamin D, Calcium. 11. Do you have any of the following medical conditions: Anorexia or bulimia, asthma or emphysema, end stage renal disease, hyperparathyroidism, any seizure disorders, cancer, inflammatory bowel diseases, hysterectomy, other ? please specify. ANSWER: Yes. Hysterectomy. 12. What was your maximum height (inches)? 67. 13. Do you perform weight bearing exercise regularly? No. 14. Do you regularly consume dairy products? Yes. 15. Do you drink caffeinated beverages? Yes. 16. At what age did your period start? 14. 17. Are you premenopausal? No. 18. How many full term pregnancies have you had? 3. 19. Have you ever missed your period for more than 6 months in a row (not including or menopause)? No. TECHNIQUE: Bone mineral density study was performed using the [employer]. FINDINGS: The results of the study expressed as bone mineral density (BMD) are as follows: Lumbar spine L1, L2, L4: BMD: 1.226 g/cm2. T-score: 1.7. Z-score: 4.6. Neck Left: BMD: 0.675 g/cm2. T-score: -1.6. Z-score: 1.0. Right: BMD: 0.541 g/cm2. T-score: -2.8. Z-score: -0.3. Total Left: BMD: 0.727 g/cm2. T-score: -1.8. Z-score: 0.6. Right: BMD: 0.733 g/cm2. T-score: -1.7. Z-score: 0.6. IMPRESSION: Osteoporosis. *Comparison exams done prior to 04/2020 were performed on different unit, [employer]. Dario Hernandez M.D. Diagnostic Radiologist [email or web address] DSM/reyes D& Transcribed: 9:54 a.m. PT/Dictated by: Dario Hernandze MD @ 03/20/2024 8:34:00 AM Signed by:?Dario Hernandez MD @03/20/2024 12:48:16 PM (Electronic Signature)
== END 2024-03-16 14:56 | disposition home or self-care (01) ==
LOC: RAD 14:56
PROVIDERS: PCP Nurse Practitioner Family; Visit Provider Nurse Practitioner Family
DX: Z13.820 Encounter for screening for osteoporosis (principal); M81.0 Age-related osteoporosis without current pathological fracture; Z78.0 Asymptomatic menopausal state
CPT/HCPCS: 77080

== ENCOUNTER 2024-06-29 13:31 | Outpatient (CLI) | payer MEDICARE, BC, SELFPAY | END 2024-06-29 13:32 | disposition home or self-care (01) | LOC: RAD 13:33 | PROVIDERS: PCP Nurse Practitioner Family; Visit Provider Internal Medicine | DX: I42.8 Other cardiomyopathies (principal); I35.1 Nonrheumatic aortic (valve) insufficiency; I34.0 Nonrheumatic mitral (valve) insufficiency; I31.39 Other pericardial effusion (noninflammatory) | CPT/HCPCS: 93306 ==

== ENCOUNTER 2024-12-22 14:48 | Observation (INO) | payer MEDICARE, BC, SELFPAY ==
[2024-12-22] VITALS (10 sets, daily range): BP systolic 112–161; BP diastolic 52–107; PULSE 60–82; RESP 16–18; TEMP 36.4–36.9; O2SAT 89–98; BMI 29.2
--- NOTE | 2024-12-22 15:06 | ED_ITS ---
HPI - General Adult General Chief complaint: Back Injury/Pain Stated complaint: Back pain at 100 today Time Seen by Provider: 12/22/24 14:52 History of Present Illness HPI narrative: patient is having increased chronic back pain has a stimulator and was concerned not working and then started to work again. patient has pain meds and did not take since last night oxycodone (?). feeling a little nauseated and had an episode of diarrhea. BS -115 per EMS and started #20 jelco as a saline lock in the LAC. patient lives at home with dog. 89-year-old woman healed left presenting to the emergency department via EMS with concern of worsening low back pain with radiation into both legs and feet. Has had a total of 6 back surgeries. She believes her spinal stimulator was placed at [facility] years ago. It sounds like about 3 weeks ago was admitted to [facility] with increasing low back pain. Ultimately discharged to [facility] and then home about 2 weeks ago. She reports that point her her spinal stimulator was malfunctioning require new battery and ?some other parts?. Now it seems to be ?burning me? when it is on or it is off and then she is not getting pain relief. At the time of our conversation is reportedly off. She is quite calm. She reports that her daughter has power of patent attorney and is managing her oxycodone. 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 Last oxycodone she received was yesterday morning she says. Daughter does not let her have them she says. She does say that she stays in bed and yells. She reports that she and her daughters preference is not to go back to [facility]. Her pain during our calm conversation is ?terrible?. Ordering Physician: Anisa FOWLER CNP Date of Service: 11/23/24 Procedure(s): XR sacrum coccyx min 2V Accession Number(s): [id number] cc: Anisa FOWLER CNP~ For Patients: As a result of the 21st Century Cures Act, medical imaging exams and procedure reports are released immediately into your electronic medical record. You may view this report before your referring provider. If you have questions, please contact your health care provider. Indication: Follow-up fracture Technique: Two views sacrum. Unable to get lateral view. Comparison: Outside exam not available IMPRESSION: Displaced fracture of the left superior pubic ramus. Additional fracture of the left inferior pubic ramus also appears to be present. Nondisplaced left sacral fracture noted. Dictated by Dario Hernandez MD @ 11/24/2024 8:43:10 AM I did call later to daughter to attempt to clarify recent events. On October 30 sustained a sacral fracture. Was hospitalized at [facility] and discharged to [facility] for rehabilitation. Is unclear at what point her spinal stimulator was not working but apparently the pedigree researcher the battery was malfunctioning, Hayde was not charging it. Upon return from senior care to home daughter got new battery/pedigree researcher. Hayde was ambulating without notable difficulty at this time. Since December 11 moving Hayde to a new place of residence be has been complaining of increasing burning pain in her right leg and the top of her right foot. And has been having trouble moving this leg corresponding with her pain. Only wants to stay in bed or maybe a wheelchair. They did try to use the stimulator but does not seem to be effective and when daughter turned up a couple of clicks appears to cause more pain. Seems to be functioning erratically. Daughter maintains that she has been giving her her oxycodone regularly contrary to what versus as. She does admit that mom is probably an addict. Primary care has been reluctant to adjust medications as Hayde has historically seen pain clinic. Today daughter did not know what to do is Hayde remains in bed screaming in pain and she had already received her pain medication. Called for EMS. Related Data Home Medications ?Medication ?Instructions ?Recorded ?Confirmed lubiprostone 24 mcg capsule 24 mcg PO BID 10/26/23 12/22/24 metoprolol tartrate 25 mg tablet 12.5 mg PO BID 10/26/23 12/22/24 pen needle, diabetic 32 gauge x #100 ea 10/26/23 12/14/2411/11 (BD Ultra-Fine Micro Pen Needle) sennosides 8.6 mg-docusate sodium 1 tab PO BID PRN 10/26/23 12/23/24 50 mg tablet (Senna Plus) pregabalin 50 mg capsule (Lyrica) 50 mg PO BID 03/02/24 12/23/24 diclofenac sodium 1 % topical gel 2 g topical QID PRN 11/23/24 12/23/24 insulin aspart U-100 100 unit/mL 6 unit subcut TID 11/23/24 12/22/24 subcutaneous solution (Novolog U-100 Insulin aspart) insulin glargine 100 unit/mL (3 14 unit subcut DAILY 11/23/24 12/23/24 mL) subcutaneous pen (Lantus Solostar U-100 Insulin) empagliflozin 10 mg tablet 10 mg PO QAM 12/23/24 12/23/24 (Jardiance) escitalopram oxalate 5 mg tablet 5 mg PO DAILY 12/23/24 12/23/24 (Lexapro) Previous Rx's ?Medication ?Instructions ?Recorded blood-glucose meter,continuous #1 ea 01/27/24 (Dexcom G7 Operations Developer) blood-glucose sensor (Dexcom G7 #9 ea 01/27/24 Sensor device) apixaban 2.5 mg tablet (Eliquis) 2.5 mg PO BID #180 tabs 02/03/24 omeprazole 40 mg capsule,delayed 40 mg PO BID #180 caps 03/22/24 release nystatin 100,000 unit/gram topical 1 applic topical BID #30 grams 10/30/24 cream meclizine 12.5 mg tablet 12.5 mg PO TID PRN dizziness 30 12/14/24 days #30 tabs oxycodone 5 mg tablet 5 mg PO Q4H pain 28 days #140 tabs 12/14/24 Allergies Allergy/AdvReac Type Severity Reaction Status Date / Time diatrizoate meglumine Allergy Hives Verified 12/22/24 15:04 phenobarbital Allergy Verified 12/22/24 15:04 propoxyphene (From Darvon) Allergy Verified 12/22/24 15:04 contrast AdvReac Unknown Uncoded 12/14/24 14:24 Review of Systems Status of ROS: Reports: 6 or more systems reviewed and unremarkable except as noted in History and below [facility] Medical History (Updated 12/24/24 @ 15:09 by Lotus Arreaga MD) Anxiety ?F41.9 - Anxiety disorder, unspecified (ICD-10) Closed L4 vertebral fracture ?S32.049A - Unspecified fracture of fourth lumbar vertebra, initial encounter for closed fracture (ICD-10) Bilateral sacral insufficiency fracture ?M84.48XA - Pathological fracture, other site, initial encounter for fracture (ICD-10) Cellulitis ?L03.90 - Cellulitis, unspecified (ICD-10) Type 2 diabetes mellitus ?E11.9 - Type 2 diabetes mellitus without complications (ICD-10) Hard of hearing ?H91.90 - Unspecified hearing loss, unspecified ear (ICD-10) Atrial fibrillation ?I48.91 - Unspecified atrial fibrillation (ICD-10) CHF (congestive heart failure) ?I50.9 - Heart failure, unspecified (ICD-10) Depression ?F32.A - Depression, unspecified (ICD-10) Constipation ?K59.00 - Constipation, unspecified (ICD-10) HTN (hypertension) ?I10 - Essential (primary) hypertension (ICD-10) Osteoarthritis ?M19.90 - Unspecified osteoarthritis, unspecified site (ICD-10) Neuropathy ?G62.9 - Polyneuropathy, unspecified (ICD-10) Nonischemic cardiomyopathy ?I42.8 - Other cardiomyopathies (ICD-10) Chronic renal insufficiency ?N18.9 - Chronic kidney disease, unspecified (ICD-10) Restless leg syndrome ?G25.81 - Restless legs syndrome (ICD-10) Recent urinary tract infection ?Z87.440 - Personal history of urinary (tract) infections (ICD-10) Left shoulder pain ?M25.512 - Pain in left shoulder (ICD-10) Nonadherence to medication ?Z91.148 - Patient's other noncompliance with medication regimen for other reason (ICD-10) Skin yeast infection ?B37.2 - Candidiasis of skin and nail (ICD-10) Fatigue ?R53.83 - Other fatigue (ICD-10) Cardiac pacemaker ?Z95.0 - Presence of cardiac pacemaker (ICD-10) Hx of sick sinus syndrome ?Z86.79 - Personal history of other diseases of the circulatory system (ICD- 10) Stage 3a chronic kidney disease ?N18.31 - Chronic kidney disease, stage 3a (ICD-10) Candidal intertrigo ?B37.2 - Candidiasis of skin and nail (ICD-10) Pressure injury of heel, stage 1 ?L89.601 - Pressure ulcer of unspecified heel, stage 1 (ICD-10) GERD (gastroesophageal reflux disease) ?K21.9 - Gastro-esophageal reflux disease without esophagitis (ICD-10) Sacral fracture ?S32.10XA - Unspecified fracture of sacrum, initial encounter for closed fracture (ICD-10) Dizziness ?R42 - Dizziness and giddiness (ICD-10) Pressure sore ?L89.90 - Pressure ulcer of unspecified site, unspecified stage (ICD-10) Health care directive on file ?Z78.9 - Other specified health status (ICD-10) Sick sinus syndrome ?I49.5 - Sick sinus syndrome (ICD-10) Surgical History History of amputation of toe ?Z89.429 - Acquired absence of other toe(s), unspecified side (ICD-10) History of appendectomy ?Z90.49 - Acquired absence of other specified parts of digestive tract (ICD- 10) History of hysterectomy ?Z90.710 - Acquired absence of both cervix and uterus (ICD-10) Spinal cord stimulator status ?Z96.89 - Presence of other specified functional implants (ICD-10) History of carpal tunnel release ?Z98.890 - Other specified postprocedural states (ICD-10) History of permanent cardiac pacemaker placement ?Z95.0 - Presence of cardiac pacemaker (ICD-10) History of knee replacement ?Z96.659 - Presence of unspecified artificial knee joint (ICD-10) Family History Father Heart disease Mother Heart disease Breast cancer Son Colon cancer, Onset Age: 47 Social History Narrative: The patient is . 2 children. Limited exercise. Non-smoker. Alcohol rare. No illicit drug use. What is your current living situation?: I presently have a place to live Problems where you live: no known problems Problems where you live details: N/A In the past 12 months, utilities in danger of being shut off: no In past 12 months, lack of transportation kept you from medical appts, meetings, work, or getting things needed for daily living: no In the past 12 mos, have been you worried that your food would run out before you had money to buy more?: never true In the past 12 mos, the food you bought just didn't last and you didn't have money to buy more?: never true Highest level of school completed/degree received: some college, no degree Smoking Status: Never smoker Do you use any of these nicotine containing products: None Second hand tobacco smoke exposure: No How often do you have a drink containing alcohol: never How often do you have six or more drinks on one occasion: Never AUDIT-C Alcohol total score: 0 Non-prescribed substance use: denies use How often does anyone, including family, friends and others, physically hurt you : never How often does anyone, including family, friends and others, insult or talk down to you: never How often does anyone, including family, friends and others, threaten you with harm: never How often does anyone, including family, friends and others, scream or curse at you: never service: No Exam Narrative: Exam Narrative: Initially yelling at an arrival to the emergency department during our conversation was quite calm in pleasant. Oropharynx is sticky. Mostly edentulous. Cranial nerves 2-12 to be intact. She has postoperative knee scars. Able to raise the left leg from the bed the right leg not really. Apparently this is not new. 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 Missing other toenails on both feet chronically. Well-perfused peripherally. She has a great deal of pain when rolling to the rights that I could examine her back which used to rolled to the left and this is very tolerated. Palpated without pain to the mid back. I do not see any new deformity, erythema or swelling. Abdomen is soft. Attends in place. Appears to be maybe a little of fecal staining on the left side of the attends. Smells slightly of urine. Mildly sore left upper abdomen to palpation. Const: Vital Signs, click to edit/add: Vital Signs - 24 hr 12/22/24 14:56 12/22/24 15:58 12/22/24 16:00 Temperature 98.4 F Pulse Rate 60 60 Pulse Rate [Pulse Oximeter] 82 Respiratory Rate 18 16 Blood Pressure Blood Pressure [Ri ght Upper Arm] 125/107 H Pulse Oximetry 98 92 95 Oxygen Delivery Me thod Room Air 12/22/24 16:01 12/22/24 16:15 12/22/24 16:30 Temperature Pulse Rate 60 60 60 Pulse Rate [Pulse Oximeter] Respiratory Rate Blood Pressure 124/52 L Blood Pressure [Ri ght Upper Arm] Pulse Oximetry 95 93 93 Oxygen Delivery Me thod 12/22/24 16:32 12/22/24 16:33 Temperature Pulse Rate 60 60 Pulse Rate [Pulse Oximeter] Respiratory Rate Blood Pressure 133/61 Blood Pressure [Ri ght Upper Arm] Pulse Oximetry 90 89 Oxygen Delivery Me thod Documenting provider has reviewed patient's vital signs: yes Course Vital Signs Vital signs: Initial Vital Signs Temperature 98.4 F 12/22/24 14:56 Temperature Source Temporal Artery Scan 12/22/24 14:56 Pulse Rate 82 12/22/24 14:56 Respiratory Rate 18 12/22/24 14:56 Blood Pressure 125/107 H 12/22/24 14:56 Blood Pressure Mean 113 H 12/22/24 14:56 Blood Pressure Position Sitting 12/22/24 14:56 Pulse Oximetry 98 12/22/24 14:56 Oxygen Delivery Method Room Air 12/22/24 14:56 Vital Signs Temperature 98.4 F 12/22/24 14:56 Pulse Rate 82 12/22/24 14:56 Respiratory Rate 18 12/22/24 14:56 Blood Pressure 125/107 H 12/22/24 14:56 Pulse Oximetry 98 12/22/24 14:56 Oxygen Delivery Method Room Air 12/22/24 14:56 Temperature 98.1 F 12/24/24 15:00 Pulse Rate 62 12/24/24 15:00 Respiratory Rate 18 12/24/24 16:27 Blood Pressure 124/63 12/24/24 15:00 Pulse Oximetry 94 12/24/24 15:00 Oxygen Delivery Method Room Air 12/24/24 15:00 Medications Administered Medications: Generic Name Dose Route Start Last Admin Trade Name Floq PRN Reason Stop Dose Admin Acetaminophen 650 mg 12/22/24 21:00 12/24/24 17:04 Acetaminophen 325 Mg Tablet PO 650 mg QID LAURA Administration Apixaban 2.5 mg 12/22/24 21:00 12/24/24 09:58 Apixaban 5 Mg Tablet PO 2.5 mg BID LAURA Administration Escitalopram Oxalate 5 mg 12/23/24 09:00 12/24/24 09:57 Escitalopram 10 Mg Tablet PO 5 mg DAILY LAURA Administration Insulin Aspart 6 unit 12/23/24 08:00 12/24/24 18:12 Insulin Aspart 100 Unit/Ml SUBCUT 6 unit TIDWM LAURA Administration Insulin Aspart 0 unit 12/22/24 21:00 12/24/24 17:02 Insulin Aspart 100 Unit/Ml SUBCUT Not Given ACHS [facility] Protocol Insulin Glargine 14 unit 12/23/24 09:00 12/24/24 07:40 Insulin Glargine,Hum.Rec.Anlog 100 Unit/Ml Insuln.Pen SUBCUT 14 unit DAILY LAURA Administration Lidocaine 1 patch 12/24/24 14:45 12/24/24 15:41 Lidocaine 5% Patch TRANSDERMA 1 patch Q24H LAURA Administration Protocol Metoprolol Tartrate 12.5 mg 12/22/24 21:00 12/24/24 09:56 Metoprolol Tartrate 25 Mg Tablet PO 12.5 mg BID LAURA Administration Lubiprostone 24 Mcg 24 mcg 12/22/24 21:00 12/24/24 10:00 Capsule PO Not Given BID LAURA Omeprazole 40 mg 12/22/24 21:00 12/24/24 09:56 [address] PO 40 mg BID LAURA Administration Oxycodone HCl 5 mg 12/24/24 11:41 12/24/24 13:22 Oxycodone 5 Mg Tablet PO 5 mg Q6H PRN Administration Polyethylene Glycol 17 gm 12/23/24 09:00 12/24/24 09:57 Polyethylene Glycol 3350 17 Gm Pack PO Not Given DAILY LAURA Senna/Docusate Sodium 1 tab 12/22/24 21:00 12/24/24 09:57 Sennosides/Docusate Tablet PO 1 tab BID LAURA Administration Sodium Chloride 5 ml 12/22/24 21:00 12/24/24 10:00 Sodium Chloride 0.9 % (Flush) 10 Ml Syringe IVF 5 ml BID LAURA Administration Discontinued Medications Generic Name Dose Route Start Last Admin Trade Name Freq PRN Reason Stop Dose Admin Hydromorphone HCl 0.5 mg 12/22/24 15:19 12/22/24 15:47 Hydromorphone 0.5 Mg/0.5 Ml Inj IVP 12/22/24 15:20 0.5 mg ONCE ONE Administration Sodium Chloride 500 mls @ 1,000 mls/hr 12/22/24 15:19 12/22/24 16:38 0.9 % Sodium Chloride 500 Ml IV 12/22/24 15:48 Infused .Q30M ONE Infusion Ketorolac Tromethamine 15 mg 12/22/24 16:30 12/22/24 16:38 Ketorolac 15 Mg/Ml Inj IVP 12/22/24 16:31 15 mg ONCE ONE Administration Oxycodone HCl 5 mg 12/22/24 20:20 12/24/24 07:31 Oxycodone 5 Mg Tablet PO 5 mg BID PRN Administration Medical Decision Making MDM Narrative Medical decision making narrative: Perhaps a need to repeat imaging of the lumbar spine. She does take Eliquis. I suppose there could be hematoma could be contributing to the pain that she is experiencing. Seems unable or unwilling to lift her right leg either. Left leg was more the initial issue requiring admission partly as related to pelvic fractures on the left side I think though Hayde says it was always the right leg (this is contrary to records) Reviewing records shows that she did have pelvic area muscular hematomas following initial fall in October. These were not actively bleeding on reassessment. Need to clarify what is going on with her spinal stimulator. Recommendations through daughter from [employer] is that it is to be turned off at this time and she is to be managed medically. Not able to MRI given pacemaker at a minimum. Requesting lumbar spine CT and repeat CT images of the pelvis. Is given initial dose of 0.5mg IV Dilaudid and apparently Toradol 15 mg worked well in clinic prior. On reexamination as she is able to flex and extend the right leg at the thigh which causes pain particularly with extension as well as flexing extending at the knee the ankle. All of it relatively weak to the left. Re-examination of abdomen is without any tenderness. CT imaging of lumbar spine in pelvis do not appear to show acute abnormalities or expanding mass lesions. Has not been calling offer more pain medication. This is a difficult situation from medical standpoint and socially. Have requested from our hospitalist to consider admission to try to sort some of this out. Thankfully, graciously accepted Medical Records Medical records reviewed: Yes I reviewed the patient's medical records Lab Data Lab results reviewed: Yes I reviewed the patient's lab results Labs: Lab Results 12/22/24 Range/Units 17:20 WBC 10.47 (4.50-11.00) K/uL RBC 4.69 (4.00-5.20) m/uL Hgb 13.4 (12.0-16.0) gm/dL Hct 41.3 (33.0-51.0) % MCV 88 (80-100) fL MCH 29 (26-34) pg MCHC 32 (32-36) gm/dL RDW Coeff of Maile 13.2 (11.5-15.5) % Plt Count 209 (140-440) K/uL Neut % (Auto) 76.7 H (42.0-72.0) % Lymph % (Auto) 13.6 L (20-44) % [place] % (Auto) 7.7 (0.0-11.0) % Eos % (Auto) 0.8 (0.0-7.0) % Baso % (Auto) 0.4 (0.0-3.0) % Neut # (Auto) 8.00 H (1.7-7.0) K/uL Lymph # (Auto) 1.40 (0.90-2.90) K/uL [place] # (Auto) 0.80 (0.00-0.90) K/UL Eos # (Auto) 0.08 (0.00-0.50) K/uL Baso # (Auto) 0.04 (0.00-0.30) K/uL Abs Immat Gran (auto) 0.08 (0.00-0.30) K/uL Imm/Tot Granulo (auto) 0.8 % INR 1.20 H (0.91-1.10) APTT 32 (23-33) Seconds Sodium 141 (135-149) mmol/L Potassium 4.0 (3.6-5.1) mmol/L Chloride 104 (96-114) mmol/L Carbon Dioxide 25 (20-32) mmol/L Anion Gap 12 (7-15) mEq/L BUN 47 H (7-30) mg/dL Creatinine 1.6 H (0.5-1.5) mg/dL Estimated Creat Clear 20.99 Estimated GFR 31 ml/min Glucose 58 L (60-115) mg/dL Calcium 9.6 (8.4-10.6) mg/dL Total Bilirubin 0.4 (0.1-1.5) mg/dL Direct Bilirubin 0.3 (0.0-0.5) mg/dL AST 22 (12-35) U/L ALT 17 (4-35) U/L Alkaline Phosphatase 213 H (40-150) U/L C-Reactive Protein 2.1 H (0.5-1.0) mg/dL Total Protein 6.8 (6.0-8.3) g/dL Albumin 3.7 (3.3-5.0) g/dL Discharge Plan Discharge Clinical Impression: Uncontrolled pain Patient Disposition: Admitted As Observation Condition: Stable
[2024-12-22] MEDS: 0.9 % SODIUM CHLORIDE 500 ML 500 ML 1000 ML IV (15:46)
[2024-12-22] MEDS: HYDROmorphone 0.5 mg/0.5 ml inj IVP (15:47)
--- OUTSIDE RECORDS SUMMARY | 2024-12-22 15:59 | XMS_ITS | Encounter Summary ---
Author Organization [place] Address [address] [place] [address] Care Team Providers Care Printer Slotter Operator Name Role Phone Chu Cruz PA-C Primary Care Provider Minna Chawla RN Unavailable Unavailable Minna Chawla RN Unavailable Unavailable Chu Cruz PA-C Unavailable [phone] Dario Potter MD Unavailable Luis Miguel Woodson MD Unavailable Unavailable Daisy Mejia NP Unavailable Aruna Mart Unavailable [phone] Chris Ricketts DPM Unavailable Chris Ricketts DPM Unavailable Clem Maynard MD Unavailable [phone] Clem Maynard MD Unavailable [phone] Encounter Details Date Type Department Care Team (Late st Contact Info) Description 12/31/2021 Documentation Only INTERFACED REPORT Unknown, Provider Social History Tobacco Use Types Packs/Day Years Used Date Smoking Tobacco: Former Smokeless Tobacco: Never Comments:only 6 months use Alcohol Use Standard Drinks/Week Comments Yes 0 (1 standard drink = 0.6 oz pur e alcohol) rarely PHQ-2 Answer Date Recorded PHQ-2 Score 2 08/15/2021 Comments No Sex and Gender Information Value Date Recorded Sex Assigned at Female 01/14/2021 7:41 PM MUNICIPAL ENGINEER Legal Sex Female 6:11 PM CDT Gender Identity Female 01/14/2021 7:41 PM MUNICIPAL ENGINEER Sexual Orientation Straight 01/14/2021 7: 41 PM MUNICIPAL ENGINEER COVID-19 Exposure Response Date Recorded In the last month, have you been in contact with someone who was confirmed or suspected to have Coronavirus / COVID-19? No / Unsure 12/31/2021 11:12 AM MUNICIPAL ENGINEER documented as of this encounter Plan of Treatment Not on file documented as of this encounter Visit Diagnoses Not on filedocumented in this encounter Additional Health Concerns Infection Onset Date Last Indicated Resolved Time Rule Out COVID-19 05/28/2022 05/28/2022 05/28/2022 8:56 PM CDT Rule Out COVID-19 07/03/2022 07/03/2022 07/03/2022 6:55 PM CDT Assessment Noted Time PHQ-9 Depression Total Score: 4 03/28/20 21 3:42 PM CDT documented as of this encounter Care Teams Printer Slotter Operator Relationship Specialty Start Date End Date Chu Cruz PA-C [address] [address] PCP - General Physician Mva Reactor Operator 07/07/17 Minna Chawla RN [address] [address] Sales Rep Diabetes Education 06/30/18 Minna Chawla RN [address] [address] Sales Rep Diabetes Education 06/30/18 Chu Cruz PA-C [address] [address] Assigned PCP 11/14/17 Dario Potter MD [address] [place] [address] Assigned Musculoskeletal Provider 08/30/20 01/10/22 Luis Miguel Woodson MD Assigned Heart and Vascular Provider 08/30/20 06/26/22 Daisy Mejia RESIDENTIAL LEASING AGENT [address] [place] [address] Assigned Neuroscience Provider 09/07/21 03/05/23 Aruna Mart [address] [place] [address] Sales Rep 01/16/22 Chris Ricketts DPM [address] [facility] [place] [address] Assigned Musculoskeletal Provider 01/11/22 12/11/22 Chris Ricketts DPM [address] [facility] [place], [place] [address] Assigned Surgical Provider 12/12/22 02/28/24 Clem Maynard MD [address] [place] [phone] Cardiovascular Disease 01/07/23 Clem Maynard MD [address] [place] [phone] Assigned Heart and Vascular Provider 01/16/23 07/30/24 documented as of this encounter
--- OUTSIDE RECORDS SUMMARY | 2024-12-22 15:59 | XMS_ITS | Encounter Summary ---
Author Organization [place] Address [facility] [place] [address] Care Team Providers Care Prop Making Supervisor Name Role Phone Chu Cruz PA-C Primary Care Provider Minna Cahwla RN Unavailable Unavailable Minna Chawla RN Unavailable Unavailable Chu Cruz PA-C Unavailable [phone] Dario Potter MD Unavailable Luis Miguel Woodson MD Unavailable Unavailable Daisy Mejia NP Unavailable [phone] Aruna Mart Unavailable [phone] Chris Ricketts DPM Unavailable Chris Ricketts DPM Unavailable Clem Maynard MD Unavailable [phone] Clem Maynard MD Unavailable [phone] Reason for Visit * Reason Onset Date Comments Prior Auth - Medication 12/11/2021 insulin aspart prot & aspart (NOVOLOG MIX 70/30 PEN) (70-30) 100 UNIT/ML pen Encounter Details Date Type Department Care Team (Late st Contact Info) Description 12/11/[address] [place] [address] Chu Cruz PA-C [address] [facility] 100 [place] [address] Prior Auth - Medication (insulin aspart prot & aspart (NOVOLOG MIX 70/30 PEN) (70-30) 100 UNIT/ML pen) Social History Tobacco Use Types Packs/Day Years Used Date Smoking Tobacco: Former Smokeless Tobacco: Never Comments:only 6 months use Alcohol Use Standard Drinks/Week Comments Yes 0 (1 standard drink = 0.6 oz pur e alcohol) rarely PHQ-2 Answer Date Recorded PHQ-2 Score 2 08/15/2021 Comments No Sex and Gender Information Value Date Recorded Sex Assigned at Female 01/14/2021 7:41 PM BELL SPINNER Legal Sex Female 6:11 PM CDT Gender Identity Female 01/14/2021 7:41 PM BELL SPINNER Sexual Orientation Straight 01/14/2021 7: 41 PM BELL SPINNER COVID-19 Exposure Response Date Recorded In the last month, have you been in contact with someone who was confirmed or suspected to have Coronavirus / COVID-19? No / Unsure 12/12/2021 3:26 PM BELL SPINNER documented as of this encounter Miscellaneous Notes * Telephone Encounter - Mable Sexton - 12/24/2021 8:46 AM CST Unable to reach this patient would you like to compose a letter? SPINNER * Telephone Encounter - Mable Sexton - 12/22/2021 9:30 AM CST lmtc SPINNER * Telephone Encounter - Mable Sexton - 12/19/2021 12:22 PM CST Left message to return call. SPINNER * Telephone Encounter - Mable Sexton - 12/18/2021 4:34 PM CST mychart message sent to the patient with provider questions. SPINNER * Telephone Encounter - Chu Cruz PA-C - 12/18/2021 2:38 PM BELL SPINNER It looks like the Novolog insulin pen was not covered for Pat. Can you see exactly what pen she hasthat she has been using? I did send over a refill of the Humulin 70/30 suspension/vials for now. Please see if she was able to start the Jardiance yet and if her glucose has been improving. Thanks. Chu Cruz PA-C SPINNER * Telephone Encounter - Cuate Cook - 12/18/2021 2:09 PM CST Images from the original note were not included. PRIOR AUTHORIZATION DENIED Medication: insulin aspart prot & aspart (NOVOLOG MIX 70/30 PEN) (70-30) 100 UNIT/ML pen Denial Date: 12/18/2021 Denial Rational: Patient must have a history of trial & failure to the formulary alternative(s)or have a contraindication or intolerance to the formulary alternatives: Appeal Information: If you would like to appeal, please supply P/A team with a letter of medical necessity with clinical reason. SPINNER * Telephone Encounter - Cuate Cook - 12/18/2021 8:11 AM CST Images from the original note were not included. Central Prior Authorization Team PA Initiation Medication: insulin aspart prot & aspart (NOVOLOG MIX 70/30 PEN) (70-30) 100 UNIT/ML pen Insurance Company: [employer] ([facility]) - Pharmacy Filling the Rx: [facility] [address] [place] [address] Filling Pharmacy Filling Pharmacy Fax: Start Date: 12/18/2021 SPINNER * Telephone Encounter - Ru Cruz - 12/11/2021 5:18 PM CST Prior Authorization Retail Medication Request Medication/Dose: insulin aspart prot & aspart (NOVOLOG MIX 70/30 PEN) (70-30) 100 UNIT/ML pen ICD code (if different than what is on RX): Previously Tried and Failed: Rationale: Insurance Name: Insurance ID: Pharmacy Information (if different than what is on RX) Name: Phone: SPINNER documented in this encounter Plan of Treatment Not on file documented as of this encounter Visit Diagnoses Diagnosis 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 (H) Type II or unspecified type diabetes mellitus without mention of complication, not stated as uncontrolled documented in this encounter Additional Health Concerns Infection Onset Date Last Indicated Resolved Time Rule Out COVID-19 05/28/2022 05/28/2022 05/28/2022 8:56 PM CDT Rule Out COVID-19 07/03/2022 07/03/2022 07/03/2022 6:55 PM CDT Assessment Noted Time PHQ-9 Depression Total Score: 4 03/28/20 3:42 PM CDT documented as of this encounter Care Teams Prop Making Supervisor Relationship Specialty Start Date End Date Chu Cruz PA-C [address] [address] PCP - General Physician Vending Enterprises Supervisor 07/07/17 Minna Chawla RN [address] [address] Manager Social Services Diabetes Education 06/30/18 Minna Chawla RN [address] [address] Manager Social Services Diabetes Education 06/30/18 Chu Cruz PA-C [address] [address] Assigned PCP 11/14/17 Dario Potter MD [address] [facility], [place] [address] Assigned Musculoskeletal Provider 08/30/20 01/10/22 Luis Miguel Woodson MD Assigned Heart and Vascular Provider 08/30/20 06/26/22 Daisy Mejia ELECTRIC RANGE ASSEMBLER [address] [place] [address] Assigned Neuroscience Provider 09/07/21 03/05/23 Aruna Mart [address] [place] [address], [place] [address] Manager Social Services 01/16/22 Chris Ricketts DPM [address] [place] [address] [place] [address] Assigned Musculoskeletal Provider 01/11/22 12/11/22 Chris Ricketst DPM [address] [place] [address] Assigned Surgical Provider 12/12/22 02/28/24 Clem Maynard MD [address] [place] [phone] Cardiovascular Disease 01/07/23 Clem Maynard MD [address] [place] [phone] Assigned Heart and Vascular Provider 01/16/23 07/30/24 documented as of this encounter
--- OUTSIDE RECORDS SUMMARY | 2024-12-22 15:59 | XMS_ITS | Encounter Summary ---
Author Organization [place] Address [address] [place] [address] Care Team Providers Care Screedman Name Role Phone Chu Cruz PA-C Primary Care Provider Minna Chawla RN Unavailable Unavailable Minna Chawla RN Unavailable Unavailable Chu Cruz PA-C Unavailable Luis Miguel Woodson MD Unavailable Unavailable Dasiy Mejia ACID TENDER Unavailable Aruna Mart Unavailable Chris Ricketts DPM Unavailable [phone] Chris Ricketts DPM Unavailable Clem Maynard MD Unavailable [phone] Clem Maynard MD Unavailable Encounter Details Date Type Department Care Team (Late st Contact Info) Description 01/16/2022 [facility] Diabetes Education [address] [place] [address] Aruna Mart [address] [place] [id number] Social History Tobacco Use Types Packs/Day Years Used Date Smoking Tobacco: Former Smokeless Tobacco: Never Comments:only 6 months use Alcohol Use Standard Drinks/Week Comments Yes 0 (1 standard drink = 0.6 oz pur e alcohol) rarely PHQ-2 Answer Date Recorded PHQ-2 Score 2 08/15/2021 Comments No Sex and Gender Information Value Date Recorded Sex Assigned at Female 01/14/2021 7:41 PM ELECTRIC MOTOR ASSEMBLER AND TESTER Legal Sex Female 6:11 PM CDT Gender Identity Female 01/14/2021 7:41 PM ELECTRIC MOTOR ASSEMBLER AND TESTER Sexual Orientation Straight 01/14/2021 7: 41 PM ELECTRIC MOTOR ASSEMBLER AND TESTER COVID-19 Exposure Response Date Recorded In the last month, have you been in contact with someone who was confirmed or suspected to have Coronavirus / COVID-19? No / Unsure 01/07/2022 1:45 PM ELECTRIC MOTOR ASSEMBLER AND TESTER documented as of this encounter Plan of [...] documented as of this encounter Care Teams Screedman Relationship Specialty Start Date End Date Chu Cruz PA-C [address] [address] PCP - General Physician Acquisitions Editor 07/07/17 Minna Chawla RN [address] [address] Sales Contract Administrator Diabetes Education 06/30/18 Minna Chawla RN [address] [address] Sales Contract Administrator Diabetes Education 06/30/18 Chu Cruz PA-C [address] [address] Assigned PCP 11/14/17 Luis Miguel Woodson MD Assigned Heart and Vascular Provider 08/30/20 06/26/22 Daisy Mejia NP [address] [place] [address] Assigned Neuroscience Provider 09/07/21 03/05/23 Aruna Mart [address] [place] [address] Sales Contract Administrator 01/16/22 Chris Ricketts DPM [address] [place] [address] [place] [address] Assigned Musculoskeletal Provider 01/11/22 12/11/22 Chris Ricketts DPM 9 [facility] [place] [address] Assigned Surgical Provider 12/12/22 02/28/24 Clem Maynard MD [address] [place] [phone] Cardiovascular Disease 01/07/23 Clem Maynard MD [address] [place] [phone] Assigned Heart and Vascular Provider 01/16/23 07/30/24 documented as of this encounter
--- OUTSIDE RECORDS SUMMARY | 2024-12-22 15:59 | XMS_ITS | Encounter Summary ---
Author Organization [facility] Address [facility] [place] [address] Care Team Providers Care Beam Carrier Hauler Pusher Name Role Phone Chu Cruz PA-C Primary Care Provider Minna Chawla RN Unavailable Unavailable Minna Chawla RN Unavailable Unavailable Chu Cruz PA-C Unavailable Luis Miguel Woodson MD Unavailable Unavailable Daisy Mejia CLERK MANAGER Unavailable Aruna Mart Unavailable [phone] Chris Ricketts DPM Unavailable Chris Ricketts DPM Unavailable Clem Maynard MD Unavailable Clem Maynard MD Unavailable [phone] Reason for Visit * Reason Onset Date Comments [facility] Encounter Details Date Type Department Care Team (Late Contact Info) Description 01/19/2022 Telephone [facility] [address] [facility] [address] [place] [phone] Missy [place] MD [address] [place], [place] [address] Diabetes (Freestyle Antoni 2 Coverage) Social History Tobacco Use Types Packs/Day Years Used Date Smoking Tobacco: Former Smokeless Tobacco: Never Comments:only 6 months use Alcohol Use Standard Drinks/Week Comments Yes 0 (1 standard drink = 0.6 oz pur e alcohol) rarely PHQ-2 Answer Date Recorded PHQ-2 Score 2 08/15/2021 Comments No Sex and Gender Information Value Date Recorded Sex Assigned at Female 01/14/2021 7:41 PM REVENUE DIRECTOR Legal Sex Female 6:11 PM CDT Gender Identity Female 01/14/2021 7:41 PM REVENUE DIRECTOR Sexual Orientation Straight 01/14/2021 7: 41 PM REVENUE DIRECTOR COVID-19 Exposure Response Date Recorded In the last month, have you been in contact with someone who was confirmed or suspected to have Coronavirus / COVID-19? No / Unsure 01/07/2022 1:45 PM REVENUE DIRECTOR documented as of this encounter Miscellaneous Notes * Telephone Encounter - Hamida Echeverria - 01/19/2022 4:01 PM CDT Patient's insurance plan restricts patient to fill Freestyle Antoni 2 CGM at another pharmacy. Please have order sent to pharmacy listed below: Insurance Plan: [employer] [facility] Part D Pharmacy: [facility] Patient Notified?: yes Thank you, [facility] Pharmacy Team [facility] [address] [place] [id number] Pool: Pharm Diabetes documented in this encounter Plan of Treatment [...] documented as of this encounter Care Teams Beam Carrier Hauler Pusher Relationship Specialty Start Date End Date Chu Cruz PA-C [address] [address] PCP - General Physician Credit Card Control Clerk 07/07/17 Minna Chawla, RN [address] [place] [address] Make Up Girl Diabetes Education 06/30/18 Minna Chawla, RN [address] [place] [address] Make Up Girl Diabetes Education 06/30/18 Chu Cruz PA-C [address] [address] Assigned PCP 11/14/17 Luis Miguel Woodson MD Assigned Heart and Vascular Provider 08/30/20 06/26/22 Daisy Mejia NP [address] [facility] [address] [place], [place] [address] Assigned Neuroscience Provider 09/07/21 03/05/23 Aruna Mart [address] [place] [address] Make Up Girl 01/16/22 Chris Ricketts DPM [address] [place] [address] [place] [address] Assigned Musculoskeletal Provider 01/11/22 12/11/22 Chris Ricketts DPM [address] [place] [address] [place] [address] Assigned Surgical Provider 12/12/22 02/28/24 Clem Maynard MD [address] [place] [phone] Cardiovascular Disease 01/07/23 Clem Maynard MD [address] [place] [phone] Assigned Heart and Vascular Provider 01/16/23 07/30/24 documented as of this encounter
--- OUTSIDE RECORDS SUMMARY | 2024-12-22 15:59 | XMS_ITS | Encounter Summary ---
Author Organization [place] Address [facility] [place] [address] Care Team Providers Care Retail Planning Manager Name Role Phone Chu Cruz PA-C Primary Care Provider Minna Chawla RN Unavailable Unavailable Minna Chawla RN Unavailable Unavailable Chu Cruz PA-C Unavailable Dario Potter MD Unavailable [phone] Luis Miguel Woodson MD Unavailable Unavailable Daisy Mejia NP Unavailable Aruna Mart Unavailable Chris Ricketts DPM Unavailable [phone] Chris Ricketts DPM Unavailable [phone] Clem Maynard MD Unavailable [phone] Clem Maynard MD Unavailable [phone] Encounter Details Date Type Department Care Team (Late st Contact Info) Description 12/26/2021 [facility] Medical [address] [address] Radha Fung, RN Social History Tobacco Use Types Packs/Day Years Used Date Smoking Tobacco: Former Smokeless Tobacco: Never Comments:only 6 months use Alcohol Use Standard Drinks/Week Comments Yes 0 (1 standard drink = 0.6 oz pur e alcohol) rarely PHQ-2 Answer Date Recorded PHQ-2 Score 2 08/15/2021 Comments No Sex and Gender Information Value Date Recorded Sex Assigned at Female 01/14/2021 7:41 PM OIL REFINER Legal Sex Female 6:11 PM CDT Gender Identity Female 01/14/2021 7:41 PM OIL REFINER Sexual Orientation Straight 01/14/2021 7: 41 PM OIL REFINER COVID-19 Exposure Response Date Recorded In the last month, have you been in contact with someone who was confirmed or suspected to have Coronavirus / COVID-19? No / Unsure 12/12/2021 3:26 PM OIL REFINER documented as of this encounter Plan of [...] documented as of this encounter Care Teams Retail Planning Manager Relationship Specialty Start Date End Date Chu Cruz PA-C [address] [address] PCP - General Physician Syrup Mixer Helper 07/07/17 Minna Chawla RN [address] [address] Learning Manager Diabetes Education 06/30/18 Minna Chawla RN [address] [address] Learning Manager Diabetes Education 06/30/18 Chu Cruz PA-C [address] [address] Assigned PCP 11/14/17 Dario Potter MD [address] [place], [place] [address] [place] [address] Assigned Musculoskeletal Provider 08/30/20 01/10/22 Luis Miguel Woodson MD Assigned Heart and Vascular Provider 08/30/20 06/26/22 Daisy Mejia NP [address] [place] [address] Assigned Neuroscience Provider 09/07/21 03/05/23 Aruna Mart [address] [place] [address] Learning Manager 01/16/22 Chris Ricketts DPM [address] [place] [address] [place] [address] Assigned Musculoskeletal Provider 01/11/22 12/11/22 Chris Ricketts DPM [address] [place] [address] [place] [address] Assigned Surgical Provider 12/12/22 02/28/24 Clem Maynard MD [address] [place] [phone] Cardiovascular Disease 01/07/23 Clem Maynard MD [address] [place] [phone] Assigned Heart and Vascular Provider 01/16/23 07/30/24 documented as of this encounter
--- OUTSIDE RECORDS SUMMARY | 2024-12-22 15:59 | XMS_ITS | Encounter Summary ---
Author Organization [place] Address [address] [place] [address] Care Team Providers Care Supervisor Travel Information Center Name Role Phone Chu Cruz PA-C Primary Care Provider Minna Chawla RN Unavailable Unavailable Minna Chawla RN Unavailable Unavailable Chu Cruz PA-C Unavailable Dario Potter MD Unavailable [phone] Luis Miguel Woodson MD Unavailable Unavailable Daisy Mejia NP Unavailable Aruna Mart Unavailable Chris Ricketts DPM Unavailable Chris Ricketts DPM Unavailable [phone] Clem Maynard MD Unavailable [phone] Clem Maynard MD Unavailable [phone] Encounter Details Date Type Department Care Team (Late st Contact Info) Description 12/24/2021 [facility] Medical Advice [facility] Scheduling [address] [place] [address] Radha Lord Social History Tobacco Use Types Packs/Day Years Used Date Smoking Tobacco: Former Smokeless Tobacco: Never Comments:only 6 months use Alcohol Use Standard Drinks/Week Comments Yes 0 (1 standard drink = 0.6 oz pur e alcohol) rarely PHQ-2 Answer Date Recorded PHQ-2 Score 2 08/15/2021 Comments No Sex and Gender Information Value Date Recorded Sex Assigned at Female 01/14/2021 7:41 PM DIRECT CARE COUNSELOR Legal Sex Female 6:11 PM CDT Gender Identity Female 01/14/2021 7:41 PM DIRECT CARE COUNSELOR Sexual Orientation Straight 01/14/2021 7: 41 PM DIRECT CARE COUNSELOR COVID-19 Exposure Response Date Recorded In the last month, have you been in contact with someone who was confirmed or suspected to have Coronavirus / COVID-19? No / Unsure 12/12/2021 3:26 PM DIRECT CARE COUNSELOR documented as of this encounter Plan of [...] documented as of this encounter Care Teams Supervisor Travel Information Center Relationship Specialty Start Date End Date Chu Cruz PA-C [address] [address] PCP - General Physician Consulting Utility Forester 07/07/17 Minna Chawla RN [address] [address] Sanitarian Inspector Diabetes Education 06/30/18 Minna Chawla RN [address] [address] Sanitarian Inspector Diabetes Education 06/30/18 Chu Cruz PA-C [address] [address] Assigned PCP 11/14/17 Dario Potter MD [address] [place] [address] [place] [address] Assigned Musculoskeletal Provider 08/30/20 01/10/22 Luis Miguel Woodson MD Assigned Heart and Vascular Provider 08/30/20 06/26/22 Daisy Mejia [facility] [address] [place] [address] Assigned Neuroscience Provider 09/07/21 03/05/23 Aruna Mart [address] [place] [address] Sanitarian Inspector 01/16/22 Chris Ricketts DPM [address] [place] [address] Assigned Musculoskeletal Provider 01/11/22 12/11/22 Chris Ricketts DPM [address] [place] [address], [place] [address] Assigned Surgical Provider 12/12/22 02/28/24 Clem Maynard MD [address] [place] [phone] Cardiovascular Disease 01/07/23 Clem Maynard MD [address] [place] [phone] Assigned Heart and Vascular Provider 01/16/23 07/30/24 documented as of this encounter
--- OUTSIDE RECORDS SUMMARY | 2024-12-22 15:59 | XMS_ITS ---
Author Organization [facility] Address [address] [place] [address] Care Team Providers Care Business Control Manager Name Role Phone Chu Cruz PA-C Primary Care Provider Minna Chawla RN Unavailable Unavailable Minna Chawla RN Unavailable Unavailable Chu Cruz PA-C Unavailable [phone] Aruna Mart Unavailable [phone] Clem Maynard MD Unavailable [phone] Diabetes Self-Management Education Status:Enrolled (Active) Start date:06/30/2018 Enrollment date:06/30/2018 Case Team Name Relationship Phone Minna Chawla RNresizer operator(Responsible Staff) Continued Care and Services Coordination
--- OUTSIDE RECORDS SUMMARY | 2024-12-22 15:59 | XMS_ITS ---
Author Organization [facility] Address [address] [place] [address] [address] [place] [address] Care Team Providers Care Curtain Cleaner Name Role Phone Anthony Chu Primary Care Provider UnavailFelipe Khanna Unavailable [phone] Jerardo Washington Unavailable Unavailable Benito Saha Unavailable [phone] Allergies Allergen (clinical drug ingredient) Drug/Non Drug Allergy documented on EMR Reaction Allergy Type Onset Date Status Darvon unknown per patient Drug Allergy Active phenobarbital Phenobarbital dizzy Drug Allergy Active IVP dye (uncoded) hives Allergy Ac tive REASON FOR VISIT low back pain, left lower extremity pain Medications Medication SIG (Take, Route, Frequency, Duration) Notes Start Date End Date Status Senna S 8.6-50 MG 1 tablet as needed Orally Twice a day for 30 days Active Omeprazole 40 MG 1 capsule 30 minutes before morning meal Orally Once a day Active Amitiza 24 MCG 1 capsule with food and water Orally Twice a day for 30 days Active DME Supply Over Counter as directed Order for U-Step Walker with Reverse Brake Unknown Insulin Aspart 100 UNIT/ML as directed Subcutaneous Unknown Eliquis 5 MG 1 tablet Orally Twic e a day Unknown Robaxin 500 MG 1 tablet Orally TID, prn pain for 30 day(s) 08/16/2019 Unknown Metoprolol Tartrate 50 MG 1 tablet with food Orally Twice a day 25mg Unknown oxyCODONE HCl 10 MG 1 tablet as needed Orally (ok to fill 10/10/2024 ok to start 10/11/2024) once to twice a day for 30 days M54.50 Active Lyrica 50 MG 1 capsule Orally Twice a day for 30 days Active Social History Tobacco Use: Social History Observation Description Date Details (start date - stop date) Never Smoker NA - NA Tobacco Control (Standard) Question Answer Notes Tobacco use: Nonsmoker AUDIT-C (Standard) Question Answer Notes Did you have a drink contain ing alcohol in the past year? Yes How often did you have six o r more drinks on one occasion in the past year? 2 to 4 times a month (2 points) How many drinks did you have on a typical day when you were drinking in the past year? 3 or 4 drinks (1 point) How often did you have a dri nk containing alcohol in the past year? Monthly or less (1 point) Points 4 Interpretation Positive Encounters Encounter Location Date Provider Diagnosis [facility] [address] [facility] [address] [place] [address] 11/06/2024 Benito Saha Other chronic pain G89.29 Assessments Encounter Date Diagnosis (ICD Code) Assessment Notes Treatment Notes Treatment Clinical Notes Section Notes 11/06/2024 Other chronic pain (ICD-10 - G89.29) Hayde returns to clinic today for a follow up evaluation regarding her chronic low back and left lower extremity pain. We discussed her current symptoms and medications. I will continue with a treatment plan consisting of medication management at this time. I have reviewed the [facility] database and did not find any inconsistencies. Regarding medications, I will refill her Oxycodone, Amitiza, Lyrica, and Senna as she continues to note moderate pain relief without any adverse side effects. This treatment plan was reviewed with Hayde, and she was agreeable. I will continue to monitor her progress and she will follow up in one month or sooner if needed. Plan: 1. Refill oxycodone 10MG BID, Amitiza, Lyrica and Senna 2. Follow up in one month Discharge instructions reviewed verbally. Discussed the risks/benefits of prescribed medication. The patient is aware that medication may be discontinued at any time due to poor compliance with visits, and recommended treatment and/or if patient doesn't adhere to the signed pain contract. The patient was instructed to return to the office as scheduled and call with any questions, problems or concerns. 11/06/2024 Low Mann, Rafia Conner , am serving as a scribe to document services personally performed by Benito Saha PA-C, based upon my observations and the provider's statements to me. All documentation has been reviewed by the aforementioned CURT. I, Benito Saha PA-C, attest that the above named individual is acting in scribe capacity, has observed my performance of the services and has documented them in accordance with my direction. The documentation recorded by the scribe accurately reflects the service I personally performed and the decisions made during the clinic visit. Plan Of Treatment Medication Medication Name Sig Start Date Stop Date Notes Senna S 8.6-50 MG 1 tablet as needed O rally Twice a day for 30 days Amitiza 24 MCG 1 capsule with food and water Orally Twice a day for 30 days oxyCODONE HCl 10 MG 1 tablet as needed O rally (ok to fill 10/10/2024 ok to start 10/11/2024) once to twice a day for 30 days M54.50 Lyrica 50 MG 1 capsule Orally Twi ce a day for 30 days Treatment Notes Assessment Notes Other chronic pain Hayde returns to clinic today for a follow up evaluation regarding her chronic low back and left lower extremity pain. We discussed her current symptoms and medications. I will continue with a treatment plan consisting of medication management at this time. I have reviewed the [facility] database and did not find any inconsistencies. Regarding medications, I will refill her Oxycodone, Amitiza, Lyrica, and Senna as she continues to note moderate pain relief without any adverse side effects. This treatment plan was reviewed with Hayde, and she was agreeable. I will continue to monitor her progress and she will follow up in one month or sooner if needed. Plan: 1. Refill oxycodone 10MG BID, Amitiza, Lyrica and Senna 2. Follow up in one month Discharge instructions reviewed verbally. Discussed the risks/benefits of prescribed medication. The patient is aware that medication may be discontinued at any time due to poor compliance with visits, and recommended treatment and/or if patient doesn't adhere to the signed pain contract. The patient was instructed to return to the office as scheduled and call with any questions, problems or concerns. Other Mackenzie, Rafia Conner, am serving as a scribe to document services personally performed by Benito Saha PA-C, based upon my observations and the provider's statements to me. All documentation has been reviewed by the aforementioned CURT. I, Benito Saha PA-C, attest that the above named individual is acting in scribe capacity, has observed my performance of the services and has documented them in accordance with my direction. The documentation recorded by the scribe accurately reflects the service I personally performed and the decisions made during the clinic visit. Progress Notes * Hayde FONG DDOB: [birth year] (89 yo F)Acc No.[id number]:11/06/2024 Progress Notes Patient: Hayde BOWMAN Provider: Jyotsna Saha PA-C :1935 A ge:89 Y S ex:Female Date:11/06/2024 Address:[address] [place] [address], [place] [phone] Pcp:Chu Cruz Subjective: * Chief Complaints: * 1 . Low back pain. 2. Left lower extremity pain. * HPI: C linic visit: Hayde (Francine) is a pleasant 89-year-old female who returns to clinic for evaluation regarding chronic low back and left lower extremity pain secondary to a work injury dated 07/16/1978. Interval History: Procedure History: - 05/30/2018 Medtronic Lumbar SCS trial - 09/16/2021 T12 kyphoplasty - 02/23/2022 Left L4-5 TFE: 100% relief Current Medications: Oxycodone 10mg QD-BID, Lyrica 150mg BID, Amitiza and Senna for OIC Previous medications: [place] 10-325mg TID returns to clinic today for a follow up evaluation regarding her chronic ___ pain. I have reviewed the [facility] database and did not find any inconsistencies. We discussed her current symptoms and medications. I will continue with a treatment plan consisting of at this time. This treatment plan was reviewed with , and she was agreeable. I will continue to monitor her progress and she will follow up in one month or sooner if needed. Plan: 1. Discharge instructions reviewed verbally. Discussed the risks/benefits of prescribed medication. The patient is aware that medication may be discontinued at any time due to poor compliance with visits, and recommended treatment and/or if patient doesn't adhere to the signed pain contract. The patient was instructed to return to the office as scheduled and call with any questions, problems or concerns. P QRS MEASURE: 154,[address] you had two or more falls in the past year? N o, H ave you had any falls with injury in the past year? N o. * ROS: G eneral/Constitutional: Chills/Fevers N o. F atigue Y es. W eight gain?No. W eight loss N o. E ndocrine: Dizziness Y es. E xcessive sweating N o. W eakness Y es. R espiratory: Chest pain N o. C ough N o. S hortness of breath at rest N o. G astrointestinal: Abdominal pain N o. B lood in stool N o. C onstipation Y es. D iarrhea N o. H ematology: Easy bruising N o. P rolonged bleeding N o. S wollen glands N o. M usculoskeletal: Painful joints N o. S wollen joints N o. S kin: Skin lesion(s) N o. N eurologic: Balance difficulty Y es. H eadache N o. T ingling/Numbness N o. P sychiatric: Alcoholism N o. A nxiety Y es. S ubstance abuse?No. * Medical History: D iabetes, Depression, Asthma, A-Fib, Migraines/Headaches, Hearing/Vision loss, Retinal aneurysms, Gallstones. * Surgical History: B ilateral Knee replacement , Bilateral eye lense replacement , Back Nerve replacementx3 , Appendectomy , Hysterectomy , SCS implant (Medtronic) , Pacemaker implant (Medtronic) , Gallbladder removal 02/26/22. * Hospitalization/Major Diagno stic Procedure: V omiting + gall bladder removal 02/24/2022. * Family History: F ather: , diagnosed with Unspecified essential hypertension. M other: , diagnosed with Other malignant neoplasm of unspecified site, Unspecified essential hypertension. * Social History: T obacco Use: T obacco Control (Standard) T obacco use: N onsmoker. M iscellaneous: M nydia status: other. Occupation: Retired. D rug/Alcohol: A JOSE-C (Standard) D id you have a drink containing alcohol in the past year? Y es,?How often did you have six or more drinks on one occasion in the past year? 2 to 4 times a month (2 points), H ow many drinks did you have on a typical day when you were drinking in the past year? 3 or 4 drinks (1 point), H ow often did you have a drink containing alcohol in the past year? M onthly or less (1 point), P oints 4 , I nterpretation P ositive.? * Medications: T aking oxyCODONE HCl 10 MG Tablet 1 tablet as needed Orally (ok to fill 10/10/2024 ok to start 10/11/2024) once to twice a day , Notes to Pharmacist: M54.50, Taking Lyrica 50 MG Capsule 1 capsule Orally Twice a day , Taking Amitiza 24 MCG Capsule 1 capsule with food and water Orally Twice a day , Taking Senna S 8.6-50 MG Tablet 1 tablet as needed Orally Twice a day , Taking Omeprazole 40 MG Capsule Delayed Release 1 capsule 30 minutes before morning meal Orally Once a day , Unknown Eliquis 5 MG Tablet 1 tablet Orally Twice a day , Unknown Metoprolol Tartrate 50 MG Tablet 1 tablet with food Orally Twice a day , Notes to Pharmacist: 25mg, Unknown Robaxin 500 MG Tablet 1 tablet Orally TID, prn pain , Unknown Insulin Aspart 100 UNIT/ML Solution as directed Subcutaneous , Unknown DME Supply Over Counter Device as directed , Notes to Pharmacist: Order for U-Step Walker with Reverse Brake, Medication List reviewed and reconciled with the patient * Allergies: P henobarbital: dizzy, Darvon: unknown per patient, IVP dye: hives. Objective: * Vitals: * Examination: M usculoskeletal: Constitutional: N ormal body habitus, well groomed, in no acute distress. Musculoskeletal: N ormal gait and station, sits comfortably. Skin: N o rashes, scars, or lesions on visible skin. Neurological N ormal coordination upper extremities, normal coordination lower extremities, alert and oriented x3, normal mood and affect. ? Assessment: * Assessment: 1. O ther chronic pain - G89.29 Plan: * Treatment: 2. O thers Notes: I, Rafia Conner, am serving as a scribe to document services personally performed by Benito Saha PA-C, based upon my observations and the provider's statements to me. All documentation has been reviewed by the aforementioned CURT. I, Benito Saha PA-C, attest that the above named individual is acting in scribe capacity, has observed my performance of the services and has documented them in accordance with my direction. The documentation recorded by the scribe accurately reflects the service I personally performed and the decisions made during the clinic visit. 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 Sign off status: Pending * Provider: Jyotsna Saha PA-C Date: 1 Generated for Elena figueredo/Akil/eTransmitting on: 0 12/22/2024 03:59 PM INJECTION MOLD TOOLING TECHNICIAN History and Physical Notes * HPI (History of Present Illness) Category Sub-Category Detail Notes Category Not es PQRS MEASURE 154,155 Fall Risk Have you had t wo or more falls in the past year?: No Have you had any falls with injury in th e past year?: No Examination Category Sub-Category Detail Notes Category Not es Musculoskeletal Constitutional: Normal body habi tus, well groomed, in no acute distress Musculoskeletal: Normal gait and stat ion, sits comfortably Skin: No rashes, scars, or lesions on visible skin Neurological Normal coordination upper extremities, normal coordination lower extremities, alert and oriented x3, normal mood and affect
--- OUTSIDE RECORDS SUMMARY | 2024-12-22 15:59 | XMS_ITS | Encounter Summary ---
Author Organization [facility] Address [facility] [place] [address] Care Team Providers Care Garbage Collection Supervisor Name Role Phone Chu Cruz PA-C Primary Care Provider Minna Chawla RN Unavailable Unavailable Minna Chawla RN Unavailable Unavailable Chu Cruz PA-C Unavailable Dario Potter MD Unavailable Luis Miguel Woodson MD Unavailable Unavailable Matheus Medina MD Unavailable Daisy Mejia NP Unavailable Aruna Mart Unavailable Chris Ricketts DPM Unavailable [phone] Chris Ricketts DPM Unavailable [phone] Clem Maynard MD Unavailable [phone] Clem Maynard MD Unavailable [phone] Reason for Visit * Reason Onset Date Comments Panel Management 06/28/2020 Medicare annual wellness Encounter Details Date Type Department Care Team (Late st Contact Info) Description 06/28/[address] [place] [address] Chu Cruz PA-C [address] [facility] [address] [place] [address] Panel Management (Medicare annual wellness ) Social History Tobacco Use Types Packs/Day Years Used Date Smoking Tobacco: Former Smokeless Tobacco: Never Comments:only 6 months use Alcohol Use Standard Drinks/Week Comments Yes 0 (1 standard drink = 0.6 oz pur e alcohol) rarely PHQ-2 Answer Date Recorded PHQ-2 Score 4 04/05/2020 Comments No Sex and Gender Information Value Date Recorded Sex Assigned at Female 01/14/2021 7:41 PM 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 No / Unsure 07/01/2020 2:02 PM CDT documented as of this encounter Miscellaneous Notes * Telephone Encounter - Janae Moe CMA - 07/22/2020 11:25 AM CDT Left message for patient to call clinic. Please see if patient would like to complete her medicare annual wellness visit at the same time. Janae Moe CMA * Telephone Encounter - Janae Moe CMA - 07/22/2020 11:14 AM CDT Images from the original note were not included. Summary: Patient is due/failing the following: Medicare annual wellness visit Follow up knee and ankle pain Action needed: Patient needs office visit for follow up and medicare annual wellness visit. Type of outreach: Phone, spoke to patient. patient scheduled. Questions for provider review: None Janae Moe CMA Chart routed to Care Team . Panel Management Review Patient has the following on her problem list: Depression / Dysthymia review Measure: Needs PHQ-9 score of 4 or less during index window. Administer PHQ-9 and if score is 5 or more, send encounter to provider for next steps. PHQ-9 SCORE 03/11/2017 01/26/2019 04/05/2020 PHQ-9 Total Score MyChart - 3 (Minimal depression) - PHQ-9 Total Score 3 3 16 If PHQ-9 recheck is 5 or more, route to provider for next steps. Patient is due for: PHQ9 Diabetes ASA: Passed Last A1C Lab Results Component Value Date A1C 10.9 02/29/2020 A1C 8.2 11/29/2019 A1C 9.3 08/23/2019 A1C 8.5 04/20/2019 A1C 9.7 01/26/2019 A1C tested: FAILED Last LDL: Lab Results Component Value Date CHOL 107 02/29/2020 Lab Results Component Value Date HDL 51 02/29/2020 Lab Results Component Value Date LDL 24 02/29/2020 Lab Results Component Value Date TRIG 162 02/29/2020 No results found for: CHOLHDLRATIO Lab Results Component Value Date NHDL 56 02/29/2020 Is the patient on a Statin? YES Is the patient on Aspirin? NO Medications HMG CoA Reductase Inhibitors atorvastatin (LIPITOR) 10 MG tablet Last three blood pressure readings: BP Readings from Last 3 Encounters: 07/11/20 (!) 158/92 07/01/20 122/72 06/25/20 112/70 Tobacco History: History Smoking Status ??? Former Smoker Smokeless Tobacco ??? Never Used Comment: only 6 months use Hypertension Last three blood pressure readings: BP Readings from Last 3 Encounters: 07/11/20 (!) 158/92 07/01/20 122/72 06/25/20 112/70 Blood pressure: FAILED HTN Guidelines: Less than 140/90 Composite cancer screening Chart review shows that this patient is due/due soon for the following None documented in this encounter Plan of Treatment Not on file documented as of this encounter Visit Diagnoses Not on filedocumented in this encounter Additional Health Concerns Infection Onset Date Last Indicated Resolved Time Rule Out COVID-19 09/26/2020 09/26/2020 09/27/2020 5:31 PM FRONT WINDOW CASHIER Rule Out COVID-19 05/28/2022 05/28/2022 05/28/2022 8:56 PM CDT Rule Out COVID-19 07/03/2022 07/03/2022 07/03/2022 6:55 PM CDT Assessment Noted Time PHQ-9 Depression Total Score: 16 020 12:50 PM CDT documented as of this encounter Care Teams Garbage Collection Supervisor Relationship Specialty Start Date End Date Chu Cruz PA-C [address] [address] PCP - General Physician Hris Coordinator 07/07/17 Minna Chawla, RN [address] [address] Bituminous Distributor Operator Diabetes Education 06/30/18 Minna Chawla, RN [address] [address] Bituminous Distributor Operator Diabetes Education 06/30/18 Chu Cruz PA-C [address] [address] Assigned PCP 11/14/17 Dario Potter MD [address] [place] [address] Assigned Musculoskeletal Provider 08/30/20 01/10/22 Luis Miguel Woodson MD Assigned Heart and Vascular Provider 08/30/20 06/26/22 Matheus Medina MD [address] [place] [address] [place] [address] Assigned Surgical Provider 08/30/20 11/30/20 Daisy Mejia NP [address] [address] Assigned Neuroscience Provider 09/07/21 03/05/23 Aruna Mart [address] [facility] [place], [place] [address] Bituminous Distributor Operator 01/16/22 Chris Ricketts DPM [address] [place] [address] [place] [address] Assigned Musculoskeletal Provider 01/11/22 12/11/22 Chris Ricketts DPM [address] [place] [address] Assigned Surgical Provider 12/12/22 02/28/24 Clem Maynard MD [address] [place] [phone] Cardiovascular Disease 01/07/23 Clem Maynard MD [address] [place] [phone] Assigned Heart and Vascular Provider 01/16/23 07/30/24 documented as of this encounter
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
--- OUTSIDE RECORDS SUMMARY | 2024-12-22 16:00 | XMS_ITS | Encounter Summary ---
Author Organization [facility] Address [address] [facility] [place] [address] Care Team Providers Care Management Analyst Name Role Phone Chu Cruz PA-C Primary Care Provider Minna Chawla RN Unavailable Unavailable Minna Chawla RN Unavailable Unavailable Chu Cruz PA-C Unavailable [phone] Dario Potter MD Unavailable [phone] Luis Miguel Woodson MD Unavailable Unavailable Daisy Mejia NP Unavailable [phone] Aruna Mart Unavailable Chris Ricketts DPM Unavailable [phone] Chris Ricketts DPM Unavailable Clem Maynard MD Unavailable [phone] Clem Maynard MD Unavailable [phone] Encounter Details Date Type Department Care Team (Late st Contact Info) Description 02/23/[address] [facility] Emergency Dept [address] [facility] [place] [address] Unknown, Provider Social History Tobacco Use Types Packs/Day Years Used Date Smoking Tobacco: Former Smokeless Tobacco: Never Comments:only 6 months use Alcohol Use Standard Drinks/Week Comments Yes 0 (1 standard drink = 0.6 oz pur e alcohol) rarely PHQ-2 Answer Date Recorded PHQ-2 Score 3 02/26/2021 Comments No Sex and Gender Information Value Date Recorded Sex Assigned at Female 01/14/2021 7:41 PM MEDICAL COLLECTIONS Legal Sex Female 6:11 PM CDT Gender Identity Female 01/14/2021 7:41 PM MEDICAL COLLECTIONS Sexual Orientation Straight 01/14/2021 7: 41 PM MEDICAL COLLECTIONS COVID-19 Exposure Response Date Recorded In the last month, have you been in contact with someone who was confirmed or suspected to have Coronavirus / COVID-19? No / Unsure 02/14/2021 11:58 AM CDT documented as of this encounter Plan of [...] documented as of this encounter Care Teams Management Analyst Relationship Specialty Start Date End Date Chu Cruz PA-C [address] [address] PCP - General Physician Director Of Graduate Medical Education 07/07/17 Minna Chawla RN [address] [address] Beauty School Instructor Diabetes Education 06/30/18 Minna Chawla RN [address] [address] Beauty School Instructor Diabetes Education 06/30/18 Chu Cruz PA-C [address] [address] Assigned PCP 11/14/17 Dario Potter MD [address] [place] [address] [facility] [facility] [place] [address] Assigned Musculoskeletal Provider 08/30/20 01/10/22 Luis Miguel Woodson MD Assigned Heart and Vascular Provider 08/30/20 06/26/22 Daisy Mejia WEB OPERATIONS LEAD [address] [address] [place] [address] Assigned Neuroscience Provider 09/07/21 03/05/23 Aruna Mart [address] [place] [address] Beauty School Instructor 01/16/22 Chris Ricketts DPM [address] [place] [address] [place] [address] Assigned Musculoskeletal Provider 01/11/22 12/11/22 Chris Ricketts DPM [address] [place] [address] [place] [address] Assigned Surgical Provider 12/12/22 02/28/24 Clem Maynard MD [address] [place] [phone] Cardiovascular Disease 01/07/23 Clem Maynard MD [address] [place] [phone] Assigned Heart and Vascular Provider 01/16/23 07/30/24 documented as of this encounter
--- OUTSIDE RECORDS SUMMARY | 2024-12-22 16:00 | XMS_ITS | Encounter Summary ---
Author Organization [facility] Address [address] [place] [address]. [place] [address] Care Team Providers Care Nascar Driver Name Role Phone Chu Cruz PA-C Primary Care Provider Minna Chawla RN Unavailable Unavailable Minna Chawla RN Unavailable Unavailable Chu Cruz PA-C Unavailable [phone] Aruna Mart Unavailable [phone] Clem Maynard MD Unavailable [phone] Clem Maynard MD Unavailable [phone] Encounter Details Date Type Department Care Team (Late st Contact Info) Description 06/13/2024 MyC Medical Advice [address] [place] [address] Joanna Ascencio, TRY OUT PERSON Social History Tobacco Use Types Packs/Day Years Used Date Smoking Tobacco: Former Cigarettes Smokeless Tobacco: Never Comments:only 6 months use Alcohol Use Standard Drinks/Week Comments Yes 0 (1 standard drink = 0.6 oz pur e alcohol) rarely PHQ-2 Answer Date Recorded PHQ-2 Score 2 04/29/2023 Adolescent Education Answer Date Record ed Getting School Help Needed Not on file 07/30 Comments No Sex and Gender Information Value Date Recorded Sex Assigned at Female 01/14/2021 7:41 PM RUBBER PRODUCTION MACHINE OPERATOR Legal Sex Female 6:11 PM CDT Gender Identity Female 01/14/2021 7:41 PM RUBBER PRODUCTION MACHINE OPERATOR Sexual Orientation Straight 01/14/2021 7: 41 PM RUBBER PRODUCTION MACHINE OPERATOR documented as of this encounter Plan of Treatment Not on file documented as of this encounter Visit Diagnoses Not on filedocumented in this encounter Additional Health Concerns Assessment Noted Time PHQ-9 Depression Total Score: 10 023 10:36 AM CDT documented as of this encounter Care Teams Nascar Driver Relationship Specialty Start Date End Date Chu Cruz PA-C [address] [address] PCP - General Physician Reducing System Operator 07/07/17 Minna Chawla RN [address] [address] Email Production Specialist Diabetes Education 06/30/18 Minna Chawla RN [address] [address] Email Production Specialist Diabetes Education 06/30/18 Chu Cruz PA-C [address] [address] Assigned PCP 11/14/17 Aruna Mart [address] [place] [address] Email Production Specialist 01/16/22 Clem Maynard MD [address] [place] [phone] Cardiovascular Disease 01/07/23 Clem Maynard MD [address] [place] [phone] Assigned Heart and Vascular Provider 01/16/23 07/30/24 documented as of this encounter
--- OUTSIDE RECORDS SUMMARY | 2024-12-22 16:00 | XMS_ITS | Encounter Summary ---
Author Organization [facility] Address [facility] [place] [address] Care Team Providers Care Supervisor Incising Name Role Phone Chu Cruz PA-C Primary Care Provider Minna Chawla RN Unavailable Unavailable Minna Chawla RN Unavailable Unavailable Chu Cruz PA-C Unavailable Dario Potter MD Unavailable [phone] Luis Miguel Woodson MD Unavailable Unavailable Daisy Mejia NP Unavailable Aruna Mart Unavailable [phone] Chirs Ricketts DPM Unavailable [phone] Chris Ricketts DPM Unavailable Clem Maynard MD Unavailable Clem Maynard MD Unavailable [phone] Reason for Visit * Reason Onset Date Comments medication notification 03/03/2021 Encounter Details Date Type Department Care Team (Late st Contact Info) Description 03/03/2021 Telephone [facility] [address] [facility] [address] [place] [phone] Chu Cruz PA-C [address] [place] [address] medication notification Social History Tobacco Use Types Packs/Day Years Used Date Smoking Tobacco: Former Smokeless Tobacco: Never Comments:only 6 months use Alcohol Use Standard Drinks/Week Comments Yes 0 (1 standard drink = 0.6 oz pur e alcohol) rarely PHQ-2 Answer Date Recorded PHQ-2 Score 3 02/26/2021 Comments No Sex and Gender Information Value Date Recorded Sex Assigned at Female 01/14/2021 7:41 PM DATA REPORTING ANALYST Legal Sex Female 6:11 PM CDT Gender Identity Female 01/14/2021 7:41 PM DATA REPORTING ANALYST Sexual Orientation Straight 01/14/2021 7: 41 PM DATA REPORTING ANALYST COVID-19 Exposure Response Date Recorded In the last month, have you been in contact with someone who was confirmed or suspected to have Coronavirus / COVID-19? No / Unsure 02/27/2021 4:12 PM CDT documented as of this encounter Miscellaneous Notes * Telephone Encounter - Chu Cruz PA-C - 03/04/2021 4:22 PM CDT All these medications are fine. Thanks. Chu Cruz PA-C * Telephone Encounter - Janelle Vides - 03/03/2021 7:47 PM CDT I am obligated to inform you of medication duplicates and interactions Lexapro with warfarin lipitor with nizoral nizoral with oxycodone Oxycodone with the other acetaminophen Multiple creams in antifungal class. Please notify of any changes. documented in this encounter Plan of Treatment Not on file documented as of this encounter Visit Diagnoses Not on filedocumented in this encounter Additional Health Concerns Infection Onset Date Last Indicated Resolved Time Rule Out COVID-19 05/28/2022 05/28/2022 05/28/2022 8:56 PM CDT Rule Out COVID-19 07/03/2022 07/03/2022 07/03/2022 6:55 PM CDT Assessment Noted Time PHQ-9 Depression Total Score: 10 021 10:27 AM CDT documented as of this encounter Care Teams Supervisor Incising Relationship Specialty Start Date End Date Chu Cruz PA-C [address] [place] [address] PCP - General Physician Log Hooker 07/07/17 Minna Chawla, RN [address] [place] [address] Health Sciences Manager Diabetes Education 06/30/18 Minna Chawla, RN [address] [address] Health Sciences Manager Diabetes Education 06/30/18 Chu Cruz PA-C [address] [address] Assigned PCP 11/14/17 Dario Potter MD [address] [place] [address] Assigned Musculoskeletal Provider 08/30/20 01/10/22 Luis Miguel Woodson MD Assigned Heart and Vascular Provider 08/30/20 06/26/22 Daisy Mejia NP [address] [address] Assigned Neuroscience Provider 09/07/21 03/05/23 Aruna Mart [address] [place] [address] [place] [address] Health Sciences Manager 01/16/22 Chris Ricketts DPM [address] [place] [address] [place] [address] Assigned Musculoskeletal Provider 01/11/22 12/11/22 Chris Ricketts DPM [address] [place] [address] [place] [address] Assigned Surgical Provider 12/12/22 02/28/24 Clem Maynard MD [address] [place] [phone] Cardiovascular Disease 01/07/23 Clem Maynard MD [address] [place] [phone] Assigned Heart and Vascular Provider 01/16/23 07/30/24 documented as of this encounter
--- OUTSIDE RECORDS SUMMARY | 2024-12-22 16:00 | XMS_ITS | Encounter Summary ---
Author Organization [place] Address [address] [place] [address] Care Team Providers Care High School Art Teacher Name Role Phone Chu Cruz PA-C Primary Care Provider Minna Chawla RN Unavailable Unavailable Minna Chawla RN Unavailable Unavailable Chu Cruz PA-C Unavailable Lisa Riggs RN Unavailable [phone] Dario Potter MD Unavailable Luis Miguel Woodson MD Unavailable Unavailable Matheus Medina MD Unavailable [phone] Daisy Mejia PROGRAM TECHNICIAN Unavailable Aruna Mart Unavailable Chris Ricketts DPM Unavailable Chris Ricketts DPM Unavailable [phone] Clem Maynard MD Unavailable [phone] Clem Maynard MD Unavailable [phone] Reason for Visit * Reason Comments Home Care/Hospice Encounter Details Date Type Department Care Team (Late st Contact Info) Description 08/07/2019 Documentation Only [address] [place] [address] Chu Cruz PA-C [address] [address] Home Care/Hospice Social History Tobacco Use Types Packs/Day Years Used Date Smoking Tobacco: Former Smokeless Tobacco: Never Comments:only 6 months use Alcohol Use Standard Drinks/Week Comments Yes 0 (1 standard drink = 0.6 oz pur e alcohol) rarely PHQ-2 Answer Date Recorded PHQ-2 Score 2 01/26/2019 Comments No Sex and Gender Information Value Date Recorded Sex Assigned at Female 01/14/2021 7:41 PM BLADE BALANCER Legal Sex Female 6:11 PM CDT Gender Identity Female 01/14/2021 7:41 PM BLADE BALANCER Sexual Orientation Straight 01/14/2021 7: 41 PM BLADE BALANCER documented as of this encounter Plan of Treatment Not on file documented as of this encounter Visit Diagnoses Not on filedocumented in this encounter Additional Health Concerns Infection Onset Date Last Indicated Resolved Time Rule Out COVID-19 09/26/2020 09/26/2020 09/27/2020 5:31 PM BLADE BALANCER Rule Out COVID-19 05/28/2022 05/28/2022 05/28/2022 8:56 PM CDT Rule Out COVID-19 07/03/2022 07/03/2022 07/03/2022 6:55 PM CDT Assessment Noted Time PHQ-9 Depression Total Score: 3 01/28/20 19 7:06 AM CDT documented as of this encounter Care Teams High School Art Teacher Relationship Specialty Start Date End Date Chu Cruz PA-C [address] [address] PCP - General Physician Orange Picker 07/07/17 Minna Chawla, RN [address] [address] Diamond Wheel Molder Diabetes Education 06/30/18 Minna Chawla RN [address] [address] Diamond Wheel Molder Diabetes Education 06/30/18 Chu Cruz PA-C 290 [facility] 100 [place], [place] [address] Assigned PCP 11/14/17 Lisa Riggs, RN Clinic Pathology Laboratory Director Primary Care - CC 06/14/2006/16 Dario Potter MD [address] [place] [address] [place] [address] Assigned Musculoskeletal Provider 08/30/20 01/10/22 Luis Miguel Woodson MD Assigned Heart and Vascular Provider 08/30/20 06/26/22 Matheus Medina MD [address] [place] [address] [place] [address] Assigned Surgical Provider 08/30/20 11/30/20 Daisy Mejia NP 6545 [facility] 450 [place], [place] [address] Assigned Neuroscience Provider 09/07/21 03/05/23 Aruna Mart [address] [place] [address] Diamond Wheel Molder 01/16/22 Chris Ricketts DPM [address] [place] [address] [place] [address] Assigned Musculoskeletal Provider 01/11/22 12/11/22 Chris Ricketts DPM [address] [place] [address] [address] [place] [address] Assigned Surgical Provider 12/12/22 02/28/24 Clem Maynard MD [address] [place] [phone] Cardiovascular Disease 01/07/23 Clem Maynard MD [address] [place] [phone] Assigned Heart and Vascular Provider 01/16/23 07/30/24 documented as of this encounter
--- OUTSIDE RECORDS SUMMARY | 2024-12-22 16:00 | XMS_ITS | Encounter Summary ---
Author Organization [place] Address [facility] [place] [address] Care Team Providers Care Electric Motor Repairman Name Role Phone Chu Cruz PA-C Primary Care Provider Minna Chawla RN Unavailable Unavailable Minna Chawla RN Unavailable Unavailable Chu Cruz PA-C Unavailable Dario Potter MD Unavailable [phone] Luis Miguel Woodson MD Unavailable Unavailable Daisy Mejia NP Unavailable [phone] Aruna Mart Unavailable Chris Ricketts DPM Unavailable [phone] Chris Ricketts DPM Unavailable [phone] Clem Maynard MD Unavailable [phone] Clem Maynard MD Unavailable Encounter Details Date Type Department Care Team (Late st Contact Info) Description 02/24/2021 [facility] 290 [facility] [address] [place] [phone] Chu Cruz PA-C [address] [facility] [address] [place] [address] Social History Tobacco Use Types Packs/Day Years Used Date Smoking Tobacco: Former Smokeless Tobacco: Never Comments:only 6 months use Alcohol Use Standard Drinks/Week Comments Yes 0 (1 standard drink = 0.6 oz pur e alcohol) rarely PHQ-2 Answer Date Recorded PHQ-2 Score 3 02/26/2021 Comments No Sex and Gender Information Value Date Recorded Sex Assigned at Female 01/14/2021 7:41 PM HARP ACTION ASSEMBLER Legal Sex Female 6:11 PM CDT Gender Identity Female 01/14/2021 7:41 PM HARP ACTION ASSEMBLER Sexual Orientation Straight 01/14/2021 7: 41 PM HARP ACTION ASSEMBLER COVID-19 Exposure Response Date Recorded In the last month, have you been in contact with someone who was confirmed or suspected to have Coronavirus / COVID-19? No / Unsure 02/27/2021 4:12 PM CDT documented as of this encounter Miscellaneous Notes * Telephone Encounter - Amelia Carrington CMA - 02/25/2021 12:15 PM CDT Will route to to review work in request, see other encounter as well documented in this encounter Plan of Treatment [...] documented as of this encounter Care Teams Electric Motor Repairman Relationship Specialty Start Date End Date Chu Cruz PA-C [address] [address] PCP - General Physician Animal Care Giver 07/07/17 Minna Chawla RN [address] [address] Drop Board Worker Diabetes Education 06/30/18 Minna Chawla RN [address] [address] Drop Board Worker Diabetes Education 06/30/18 Chu Cruz PA-C [address] [address] Assigned PCP 11/14/17 Dario Potter MD [address] [place] [address] Assigned Musculoskeletal Provider 08/30/20 01/10/22 Luis Miguel Woodson MD Assigned Heart and Vascular Provider 08/30/20 06/26/22 Daisy Mejia NP [address] [place] [address] Assigned Neuroscience Provider 09/07/21 03/05/23 Aruna Mart [address] [place] [address] Drop Board Worker 01/16/22 Chris Ricketts DPM [address] [place] [address] [place] [address] Assigned Musculoskeletal Provider 01/11/22 12/11/22 Chris Ricketts DPM [address] [place] [address] [place] [address] Assigned Surgical Provider 12/12/22 02/28/24 Clem Maynard MD [address] [place] [phone] Cardiovascular Disease 01/07/23 Clem Maynard MD [address] [place] [id number] Assigned Heart and Vascular Provider 01/16/23 07/30/24 documented as of this encounter
--- OUTSIDE RECORDS SUMMARY | 2024-12-22 16:00 | XMS_ITS | Encounter Summary ---
Author Organization [place] Address [address] [place] [address] Care Team Providers Care Environmental Management Specialist Name Role Phone Chu Cruz PA-C Primary Care Provider Minna Chawla RN Unavailable Unavailable Minna Chawla RN Unavailable Unavailable Chu Cruz PA-C Unavailable Lisa Riggs RN Unavailable Dario Potter MD Unavailable Luis Miguel Woodson MD Unavailable Unavailable Matheus Medina MD Unavailable [phone] Daisy Mejia ETHOLOGIST Unavailable Aruna Mart Unavailable [phone] Chris Ricketts DPM Unavailable Chris Ricketts DPM Unavailable [phone] Clem Maynard MD Unavailable Clem Maynard MD Unavailable [phone] Reason for Visit * Reason Comments Home Care/Hospice Encounter Details Date Type Department Care Team (Late st Contact Info) Description 07/23/2019 Documentation Only [facility] [address] [place] [address] Chu Cruz PA-C [address] [address] Home Care/Hospice Social History Tobacco Use Types Packs/Day Years Used Date Smoking Tobacco: Former Smokeless Tobacco: Never Comments:only 6 months use Alcohol Use Standard Drinks/Week Comments Yes 0 (1 standard drink = 0.6 oz pur e alcohol) rarely PHQ-2 Answer Date Recorded PHQ-2 Score 2 01/26/2019 Comments No Sex and Gender Information Value Date Recorded Sex Assigned at Female 01/14/2021 7:41 PM NEWSWRITER Legal Sex Female 6:11 PM CDT Gender Identity Female 01/14/2021 7:41 PM NEWSWRITER Sexual Orientation Straight 01/14/2021 7: 41 PM NEWSWRITER documented as of this encounter Plan of Treatment Not on file documented as of this encounter Visit Diagnoses Not on filedocumented in this encounter Additional Health Concerns Infection Onset Date Last Indicated Resolved Time Rule Out COVID-19 09/26/2020 09/26/2020 09/27/2020 5:31 PM NEWSWRITER Rule Out COVID-19 05/28/2022 05/28/2022 05/28/2022 8:56 PM CDT Rule Out COVID-19 07/03/2022 07/03/2022 07/03/2022 6:55 PM CDT Assessment Noted Time PHQ-9 Depression Total Score: 3 01/28/20 19 7:06 AM CDT documented as of this encounter Care Teams Environmental Management Specialist Relationship Specialty Start Date End Date Chu Cruz PA-C [address] [address] PCP - General Physician Cardiovascular Invasive Specialist 07/07/17 Minna Chawla, RN [address] [address] Terrazzo Layer Helper Diabetes Education 06/30/18 Minna Chawla RN [address] [address] Terrazzo Layer Helper Diabetes Education 06/30/18 Chu Cruz PA-C 290 [facility] 100 [place] [address] Assigned PCP 11/14/17 Lisa Riggs, RN Clinic Solution Design And Analysis Manager Primary Care - CC 06/14/2006/16 Dario Potter MD [address] [place] [address] [place] [address] Assigned Musculoskeletal Provider 08/30/20 01/10/22 Luis Miguel Woodson MD Assigned Heart and Vascular Provider 08/30/20 06/26/22 Matheus Medina MD [address] [place] [address] Assigned Surgical Provider 08/30/20 11/30/20 Daisy Mejia ETHOLOGIST 6545 [facility] 450 [place], [place] [address] Assigned Neuroscience Provider 09/07/21 03/05/23 Aruna Mart [address] [place] [address] Terrazzo Layer Helper 01/16/22 Chris Ricketts DPM [address] [place] [address] [place] [address] Assigned Musculoskeletal Provider 01/11/22 12/11/22 Chris Ricketts DPM [address] [place] [address] [place] [address] Assigned Surgical Provider 12/12/22 02/28/24 Clem Maynard MD [address] [place] [phone] Cardiovascular Disease 01/07/23 Clem Maynard MD [address] [place] [phone] Assigned Heart and Vascular Provider 01/16/23 07/30/24 documented as of this encounter
--- OUTSIDE RECORDS SUMMARY | 2024-12-22 16:00 | XMS_ITS | Encounter Summary ---
Author Organization [place] Address [address] [place] [address] Care Team Providers Care Nurses Assistant Name Role Phone Chu Cruz PA-C Primary Care Provider Minna Chawla RN Unavailable Unavailable Minna Chawla RN Unavailable Unavailable Chu Cruz PA-C Unavailable Lisa Riggs RN Unavailable Dario Potter MD Unavailable Luis Miguel Woodson MD Unavailable Unavailable Matheus Medina MD Unavailable [phone] Daisy Mejia RELAY REPAIRER Unavailable Aruna Mart Unavailable Chris Ricketts DPM Unavailable [phone] Chris Ricketts DPM Unavailable Clem Maynard MD Unavailable [phone] Clem Maynard MD Unavailable [phone] Reason for Visit * Reason Comments Home Care/Hospice Encounter Details Date Type Department Care Team (Late st Contact Info) Description 08/04/2019 Documentation Only [address] [place] [address] Chu Cruz PA-C 290 [facility] 100 [place] [address] Home Care/Hospice Social History Tobacco Use Types Packs/Day Years Used Date Smoking Tobacco: Former Smokeless Tobacco: Never Comments:only 6 months use Alcohol Use Standard Drinks/Week Comments Yes 0 (1 standard drink = 0.6 oz pur e alcohol) rarely PHQ-2 Answer Date Recorded PHQ-2 Score 2 01/26/2019 Comments No Sex and Gender Information Value Date Recorded Sex Assigned at Female 01/14/2021 7:41 PM GROUP FITNESS DEPARTMENT HEAD Legal Sex Female 6:11 PM CDT Gender Identity Female 01/14/2021 7:41 PM GROUP FITNESS DEPARTMENT HEAD Sexual Orientation Straight 01/14/2021 7: 41 PM GROUP FITNESS DEPARTMENT HEAD documented as of this encounter Miscellaneous Notes * Telephone Encounter - Axel Perez PA-C - 08/04/2019 4:12 PM CDT Agree with order. Axel Perez PA-C documented in this encounter Plan of Treatment Not on file documented as of this encounter Visit Diagnoses Not on filedocumented in this encounter Additional Health Concerns Infection Onset Date Last Indicated Resolved Time Rule Out COVID-19 09/26/2020 09/26/2020 09/27/2020 5:31 PM GROUP FITNESS DEPARTMENT HEAD Rule Out COVID-19 05/28/2022 05/28/2022 05/28/2022 8:56 PM CDT Rule Out COVID-19 07/03/2022 07/03/2022 07/03/2022 6:55 PM CDT Assessment Noted Time PHQ-9 Depression Total Score: 3 01/28/20 19 7:06 AM CDT documented as of this encounter Care Teams Nurses Assistant Relationship Specialty Start Date End Date Chu Cruz PA-C [address] [facility] 100 [place] [address] PCP - General Physician Partner Marketing Intern 07/07/17 Minna Chawla RN [address] [address] Third Helper Diabetes Education 06/30/18 Minna Chawla RN [address] [address] Third Helper Diabetes Education 06/30/18 Chu Cruz PA-C [address] [place] [address] Assigned PCP 11/14/17 Lisa Riggs RN Clinic Occ Therapist Primary Care - CC 06/14/2006/16 Dario Potter MD [address] [place] [address] Assigned Musculoskeletal Provider 08/30/20 01/10/22 Luis Miguel Woodson MD Assigned Heart and Vascular Provider 08/30/20 06/26/22 Matheus Medina MD [address] [place] [address] [place] [address] Assigned Surgical Provider 08/30/20 11/30/20 Daisy Mejia NP [address] [address] Assigned Neuroscience Provider 09/07/21 03/05/23 Aruna Mart [address] [place] [address] Third Helper 01/16/22 Chris Ricketts DPM [address] [place] [address] [place] [address] Assigned Musculoskeletal Provider 01/11/22 12/11/22 Chris Ricketts DPM [address] [place] [address] [place] [address] Assigned Surgical Provider 12/12/22 02/28/24 Clem Maynard MD [address] [place] [phone] Cardiovascular Disease 01/07/23 Clem Maynard MD [address] [place] [phone] Assigned Heart and Vascular Provider 01/16/23 07/30/24 documented as of this encounter
--- OUTSIDE RECORDS SUMMARY | 2024-12-22 16:00 | XMS_ITS | Encounter Summary ---
Author Organization [place] Address [address] [place] [address] Care Team Providers Care Warehouser Name Role Phone Chu Cruz PA-C Primary Care Provider Minna Chawla RN Unavailable Unavailable Minna Chawla RN Unavailable Unavailable Chu Cruz PA-C Unavailable Dario Potter MD Unavailable [phone] Luis Miguel Woodson MD Unavailable Unavailable Daisy Mejia NP Unavailable Aruna Mart Unavailable Chris Ricketts DPM Unavailable [phone] Chris Ricketts DPM Unavailable Clem Maynard MD Unavailable Clem Maynard MD Unavailable Reason for Visit * Reason Comments Home Care/Hospice Encounter Details Date Type Department Care Team (Late st Contact Info) Description 03/11/2021 Documentation Only [facility] [address] [place] [address] Chu Cruz PA-C [address] [place] [address] Home Care/Hospice Social History Tobacco Use Types Packs/Day Years Used Date Smoking Tobacco: Former Smokeless Tobacco: Never Comments:only 6 months use Alcohol Use Standard Drinks/Week Comments Yes 0 (1 standard drink = 0.6 oz pur e alcohol) rarely PHQ-2 Answer Date Recorded PHQ-2 Score 3 02/26/2021 Comments No Sex and Gender Information Value Date Recorded Sex Assigned at Female 01/14/2021 7:41 PM NEUROLOGY TEACHER Legal Sex Female 6:11 PM CDT Gender Identity Female 01/14/2021 7:41 PM NEUROLOGY TEACHER Sexual Orientation Straight 01/14/2021 7: 41 PM NEUROLOGY TEACHER COVID-19 Exposure Response Date Recorded In the last month, have you been in contact with someone who was confirmed or suspected to have Coronavirus / COVID-19? No / Unsure 02/27/2021 4:12 PM CDT documented as of this encounter Plan [...] documented as of this encounter Care Teams Warehouser Relationship Specialty Start Date End Date Chu Cruz PA-C [address] [address] PCP - General Physician Match Up Person 07/07/17 Minna Chawla RN [address] [address] Darkroom Technician Diabetes Education 06/30/18 Minna Chawla RN [address] [address] Darkroom Technician Diabetes Education 06/30/18 Chu Cruz PA-C [address] [place] [address] 100 [place] [address] Assigned PCP 11/14/17 Dario Potter MD [address] [place] [address] [address] [address] Assigned Musculoskeletal Provider 08/30/20 01/10/22 Luis Miguel Woodson MD Assigned Heart and Vascular Provider 08/30/20 06/26/22 Daisy Mejia NP [address] [facility] [address] [facility] [address] [place] [address] Assigned Neuroscience Provider 09/07/21 03/05/23 Aruna Mart [address] [place] [address] Darkroom Technician 01/16/22 Chris Ricketts DPM [address] [place] [address] [place] [address] Assigned Musculoskeletal Provider 01/11/22 12/11/22 Chris Ricketts DPM [address] [place] [address] [place] [address] Assigned Surgical Provider 12/12/22 02/28/24 Clem Maynard MD [address] [place] [phone] Cardiovascular Disease 01/07/23 Clem Maynard MD [address] [place] [phone] Assigned Heart and Vascular Provider 01/16/23 07/30/24 documented as of this encounter
--- OUTSIDE RECORDS SUMMARY | 2024-12-22 16:00 | XMS_ITS | Encounter Summary ---
Author Organization [place] Address [address] [place] [address]. [place] [address] Care Team Providers Care Reproductive Surgeon Name Role Phone Chu Cruz PA-C Primary Care Provider Minna Chawla RN Unavailable Unavailable Minna Chawla RN Unavailable Unavailable Chu Cruz PA-C Unavailable [phone] Aruna Mart Unavailable [phone] Clem Maynard MD Unavailable [phone] Encounter Details Date Type Department Care Team (Late st Contact Info) Description 12/13/2024 MyC Medical Advice [address] [place] [phone] Joanna Ascencio, MEDICAL ASSISTANT SECRETARY Social History Tobacco Use Types Packs/Day Years [...] Sex Assigned at Female 01/14/2021 7:41 PM INJECTION MOLDING TECHNICIAN Legal Sex Female 6:11 PM CDT Gender Identity Female 01/14/2021 7:41 PM INJECTION MOLDING TECHNICIAN Sexual Orientation Straight 01/14/2021 7: 41 PM INJECTION MOLDING TECHNICIAN documented as of this encounter Plan of Treatment Not on file documented as of this encounter Visit Diagnoses Not on filedocumented in this encounter Additional Health Concerns Assessment Noted Time PHQ-9 Depression Total Score: 10 023 10:36 AM CDT documented as of this encounter Care Teams Reproductive Surgeon Relationship Specialty Start Date End Date Chu Cruz PA-C [address] [address] PCP - General Physician Senior Hardware Design Engineer 07/07/17 Minna Chawla RN [address] [address] Wax Molder Diabetes Education 06/30/18 Minna Chawla RN [address] [address] Wax Molder Diabetes Education 06/30/18 Chu Cruz PA-C [address] [address] Assigned PCP 11/14/17 Aruna Mart [address] [place] [address] Wax Molder 01/16/22 Clem Maynard MD [address] [place] [address] Cardiovascular Disease 01/07/23 documented as of this encounter
--- OUTSIDE RECORDS SUMMARY | 2024-12-22 16:00 | XMS_ITS | Encounter Summary ---
Author Organization [place] Address [facility] [place] [address] Care Team Providers Care Classifications Officer Cc/Cm Name Role Phone Chu Cruz PA-C Primary Care Provider Minna Chawla RN Unavailable Unavailable Minna Chawla RN Unavailable Unavailable Chu Cruz PA-C Unavailable [phone] Aruna Mart Unavailable [phone] Clem Maynard MD Unavailable [phone] Reason for Visit * Reason Onset Date Comments Outreach 12/13/2024 Encounter Details Date Type Department Care Team (Late st Contact Info) Description 12/13/2024 Telephone [facility] [address] [facility] [address] [place] [address] Chu Cruz PA-C [address] [facility] [address] [place] [address] Outreach Social History Tobacco Use Types Packs/Day Years [...] Sex Assigned at Female 01/14/2021 7:41 PM VINYL CUTTER Legal Sex Female 6:11 PM CDT Gender Identity Female 01/14/2021 7:41 PM VINYL CUTTER Sexual Orientation Straight 01/14/2021 7: 41 PM VINYL CUTTER documented as of this encounter Miscellaneous Notes * Telephone Encounter - Joanna Ascencio CMA - 12/14/2024 11:10 AM VINYL CUTTER Patient Quality Outreach Patient is due for the following: Physical Annual Wellness Visit Action(s) Taken: Schedule a Annual Wellness Visit Type of outreach: Sent letter. Questions for provider review: None Joanna Ascencio CMA L CUTTER * Telephone Encounter - Joanna Ascencio CMA - 12/13/2024 4:57 PM VINYL CUTTER Patient Quality Outreach Patient is due for the following: Physical Preventive Adult Physical Topic Date Due Zoster (Shingles) Vaccine (2 of 2) 04/20/2023 Flu Vaccine (1) 07/09/2024 COVID-19 Vaccine ( season) 2024 Action(s) Taken: Schedule a Annual Wellness Visit Type of outreach: Sent So Protect Me message. Questions for provider review: None Joanna Ascencio CMA Chart routed to Care Team. L CUTTER documented in this encounter Plan of Treatment Not on file documented as of this encounter Visit Diagnoses Not on filedocumented in this encounter Additional Health Concerns Assessment Noted Time PHQ-9 Depression Total Score: 10 023 10:36 AM CDT documented as of this encounter Care Teams Classifications Officer Cc/Cm Relationship Specialty Start Date End Date Chu Cruz PA-C [address] [place] [address] PCP - General Physician Scuba Instructor 07/07/17 Minna Chawla RN [address] [place] [address] Tankroom Tender Diabetes Education 06/30/18 Minna Chawla RN [address] [place] [address] Tankroom Tender Diabetes Education 06/30/18 Chu Cruz PA-C [address] [address] Assigned PCP 11/14/17 Aruna Mart [address] [place] [address] Tankroom Tender 01/16/22 Clem Maynard MD [address] [place] [phone] Cardiovascular Disease 01/07/23 documented as of this encounter
--- OUTSIDE RECORDS SUMMARY | 2024-12-22 16:00 | XMS_ITS | Encounter Summary ---
Author Organization [facility] Address [facility] [place] [address] Care Team Providers Care Senior Marketing Data Analyst Name Role Phone Chu Cruz PA-C Primary Care Provider Minna Chawla RN Unavailable Unavailable Minna Chawla RN Unavailable Unavailable Chu Cruz PA-C Unavailable Dario Potter MD Unavailable Luis Miguel Woodson MD Unavailable Unavailable Daisy Mejia NP Unavailable [phone] Aruna Mart Unavailable Chris Ricketts DPM Unavailable Chris Ricketts DPM Unavailable Clem Maynard MD Unavailable Clem Maynard MD Unavailable [phone] Reason for Visit * Reason Onset Date Comments requesting orders 03/20/2021 Encounter Details Date Type Department Care Team (Late st Contact Info) Description 03/20/2021 [facility] [address] [place] [address] Chu Cruz PA-C [address] [place] [address] requesting orders Social History Tobacco Use Types Packs/Day Years Used Date Smoking Tobacco: Former Smokeless Tobacco: Never Comments:only 6 months use Alcohol Use Standard Drinks/Week Comments Yes 0 (1 standard drink = 0.6 oz pur e alcohol) rarely PHQ-2 Answer Date Recorded PHQ-2 Score 3 02/26/2021 Comments No Sex and Gender Information Value Date Recorded Sex Assigned at Female 01/14/2021 7:41 PM COSTUMER Legal Sex Female 6:11 PM CDT Gender Identity Female 01/14/2021 7:41 PM COSTUMER Sexual Orientation Straight 01/14/2021 7: 41 PM COSTUMER COVID-19 Exposure Response Date Recorded In the last month, have you been in contact with someone who was confirmed or suspected to have Coronavirus / COVID-19? No / Unsure 02/27/2021 4:12 PM CDT documented as of this encounter Miscellaneous Notes * Telephone Encounter - Chu Cruz PA-C - 03/20/2021 4:52 PM CDT Agree with plan. Chu Cruz PA-C * Telephone Encounter - Janelle Vides - 03/20/2021 3:14 PM CDT [facility] now requests orders and shares plan of care/discharge summaries for some patients through [facility]. Please REPLY TO THIS MESSAGE OR ROUTE BACK TO THE AUTHOR in order to give authorization for orders when needed. This is considered a verbal order, you will still receive a faxedcopy of orders for signature. Thank you for your assistance in improving collaboration for our patients. ORDER PT to see pt 2X/wk times 2 wks and FUEL QUALITY TECH 1X/wk times 2 wks for safety needs. 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 Pt has been difficult to contact to set up her visits. Ispine visit yesterday wants pt to continue with PT. documented in this encounter Plan of Treatment [...] documented as of this encounter Care Teams Senior Marketing Data Analyst Relationship Specialty Start Date End Date Chu Cruz PA-C [address] [address] PCP - General Physician Vending Machine Refiller 07/07/17 Minna Chawla RN [address] [address] Solar Thermal Installer Diabetes Education 06/30/18 Minna Chawla RN [address] [address] Solar Thermal Installer Diabetes Education 06/30/18 Chu Cruz PA-C [address] [address] Assigned PCP 11/14/17 Dario Potter MD [address] [place] [address] Assigned Musculoskeletal Provider 08/30/20 01/10/22 Luis Miguel Woodson MD Assigned Heart and Vascular Provider 08/30/20 06/26/22 Daisy Mejia NP [address] [address] Assigned Neuroscience Provider 09/07/21 03/05/23 Aruna Mart [address] [facility] [place] [address] Solar Thermal Installer 01/16/22 Chris Ricketts DPM [address] [facility] [place] [address] Assigned Musculoskeletal Provider 01/11/22 12/11/22 Chris Ricketts DPM [address] [facility] [place] [address] Assigned Surgical Provider 12/12/22 02/28/24 Clem Maynard MD [address] [place] [id number] Cardiovascular Disease 01/07/23 Clem Maynard MD [address] [place] [address] Assigned Heart and Vascular Provider 01/16/23 07/30/24 documented as of this encounter
--- OUTSIDE RECORDS SUMMARY | 2024-12-22 16:00 | XMS_ITS | Encounter Summary ---
Author Organization [facility] Address [address] [place] [address] Care Team Providers Care Furnace Caretaker Name Role Phone Chu Cruz PA-C Primary Care Provider Minna Chawla RN Unavailable Unavailable Minna Chawla RN Unavailable Unavailable Chu Cruz PA-C Unavailable [phone] Dario Potter MD Unavailable Luis Miguel Woodson MD Unavailable Unavailable Daisy Mejia NP Unavailable Aruna Mart Unavailable [phone] Chris Ricketts DPM Unavailable Chris Ricketts DPM Unavailable Clem Maynard MD Unavailable [phone] Clem Maynard MD Unavailable Encounter Details Date Type Department Care Team (Late st Contact Info) Description 01/22/2021 Documentation Only INTERFACED REPORT Unknown, Provider Social History Tobacco Use Types Packs/Day Years Used Date Smoking Tobacco: Former Smokeless Tobacco: Never Comments:only 6 months use Alcohol Use Standard Drinks/Week Comments Yes 0 (1 standard drink = 0.6 oz pur e alcohol) rarely PHQ-2 Answer Date Recorded PHQ-2 Score 5 11/04/2020 Comments No Sex and Gender Information Value Date Recorded Sex Assigned at Female 01/14/2021 7:41 PM AUTOMATION TEST ENGINEER Legal Sex Female 6:11 PM CDT Gender Identity Female 01/14/2021 7:41 PM AUTOMATION TEST ENGINEER Sexual Orientation Straight 01/14/2021 7: 41 PM AUTOMATION TEST ENGINEER COVID-19 Exposure Response Date Recorded In the last month, have you been in contact with someone who was confirmed or suspected to have Coronavirus / COVID-19? No / Unsure 01/20/2021 2:35 PM CDT documented as of this encounter Plan of Treatment Not on file documented as of this encounter Visit Diagnoses Not on filedocumented in this encounter Additional Health Concerns Infection Onset Date Last Indicated Resolved Time Rule Out COVID-19 05/28/2022 05/28/2022 05/28/2022 8:56 PM CDT Rule Out COVID-19 07/03/2022 07/03/2022 07/03/2022 6:55 PM CDT Assessment Noted Time PHQ-9 Depression Total Score: 5 03/28/20 21 3:42 PM CDT documented as of this encounter Care Teams Furnace Caretaker Relationship Specialty Start Date End Date Chu Cruz PA-C [address] [address] PCP - General Physician Stem Maker 07/07/17 Minna Chawla RN [address] [address] Forging Engineer Diabetes Education 06/30/18 Minna Chawla RN [address] [address] Forging Engineer Diabetes Education 06/30/18 Chu Cruz PA-C [address] [address] Assigned PCP 11/14/17 Dario Potter MD [address] [place] [address] Assigned Musculoskeletal Provider 08/30/20 01/10/22 Luis Miguel Woodson MD Assigned Heart and Vascular Provider 08/30/20 06/26/22 Daisy Mejia WINDOWS SYSTEMS ADMIN [address] [place] [address] Assigned Neuroscience Provider 09/07/21 03/05/23 Aruna Mart [address] [place] [address] Forging Engineer 01/16/22 Chris Ricketts DPM [address] [facility] [place] [address] Assigned Musculoskeletal Provider 01/11/22 12/11/22 Chris Ricketts DPM [address] [facility] [place], [place] [address] Assigned Surgical Provider 12/12/22 02/28/24 Clem Maynard MD [address] [place] [phone] Cardiovascular Disease 01/07/23 Clem Maynard MD [address] [place] [phone] Assigned Heart and Vascular Provider 01/16/23 07/30/24 documented as of this encounter
--- OUTSIDE RECORDS SUMMARY | 2024-12-22 16:00 | XMS_ITS | Encounter Summary ---
Author Organization [facility] Address [address] [place] [address] Care Team Providers Care Water Plant Operator Name Role Phone Chu Cruz PA-C Primary Care Provider Minna Chawla RN Unavailable Unavailable Minna Chawla RN Unavailable Unavailable Chu Cruz PA-C Unavailable [phone] Lisa Riggs RN Unavailable [phone] Dario Potter MD Unavailable Luis Miguel Woodson MD Unavailable Unavailable Matheus Medina MD Unavailable Daisy Mejia TUCK POINTER Unavailable [phone] Aruna Mart Unavailable [phone] Chris Ricketts DPM Unavailable Chris Ricketts DPM Unavailable [phone] Clem Maynard MD Unavailable [phone] Clem Maynard MD Unavailable [phone] Reason for Visit * Reason Onset Date Comments [facility]2019 Encounter Details Date Type Department Care Team (Late st Contact Info) Description 07/20/2019 Telephone [facility] [address] [place] [address] Chu Cruz PA-C [address] [facility] [address] [place] [address] [facility] Social History Tobacco Use Types Packs/Day Years Used Date Smoking Tobacco: Former Smokeless Tobacco: Never Comments:only 6 months use Alcohol Use Standard Drinks/Week Comments Yes 0 (1 standard drink = 0.6 oz pur e alcohol) rarely PHQ-2 Answer Date Recorded PHQ-2 Score 2 01/26/2019 Comments No Sex and Gender Information Value Date Recorded Sex Assigned at Female 01/14/2021 7:41 PM INSTRUMENTATION TECH Legal Sex Female 6:11 PM CDT Gender Identity Female 01/14/2021 7:41 PM INSTRUMENTATION TECH Sexual Orientation Straight 01/14/2021 7: 41 PM INSTRUMENTATION TECH documented as of this encounter Miscellaneous Notes * Telephone Encounter - Shannen Benitez MA - 07/20/2019 3:47 PM CDT FYI: -continuing to buy otc. -PT states she is still using 70/30: nurse not witnessed Nurse will use sliding scale. Shannen Benitez MA * Telephone Encounter - Chu Cruz PA-C - 07/20/2019 3:30 PM CDT Does she need a refill of Humulin R or does she continue to get this over the counter? She is stillusing the Humulin 70/30 twice daily? Continue to hold off on taking metoprolol for the weekend. She should be taking her short acting insulin before lunch with sliding scale. Sig: Inject 1-7 Units Subcutaneous daily before lunch. Do Not give Insulin if Pre-Meal BG less qcut318. For Pre-Meal BG 150 - 199 give 1 unit. For Pre-Meal BG 200 - 249 give 2 units. For Pre-Meal BG 250 - 299 give 3 units. For Pre-Meal BG 300 - 349 give 4 units. For Pre-Meal BG 350- 399 give 5 units. For Pre-Meal BG 400-449 give 6 units For Pre-Meal BG greater than or equal to 450 give 7 units. Chu Cruz PA-C * Telephone Encounter - Yamileth Gallardo - 07/20/2019 2:36 PM CDT Reason for call: Kelton Post from home care is calling To inform that her blood sugar this morning was 354 and after lunch 416- she took her long active insulin, but does not have short active. For her Blood Pressure it was 102/61 as of right now. Continue to hold the BP medication. documented in this encounter Plan of Treatment Not on file documented as of this encounter Visit Diagnoses Not on filedocumented in this encounter Additional Health Concerns Infection Onset Date Last Indicated Resolved Time Rule Out COVID-19 09/26/2020 09/26/2020 09/27/2020 5:31 PM INSTRUMENTATION TECH Rule Out COVID-19 05/28/2022 05/28/2022 05/28/2022 8:56 PM CDT Rule Out COVID-19 07/03/2022 07/03/2022 07/03/2022 6:55 PM CDT Assessment Noted Time PHQ-9 Depression Total Score: 3 01/28/20 19 7:06 AM CDT documented as of this encounter Care Teams Water Plant Operator Relationship Specialty Start Date End Date Chu Cruz PA-C [address] [address] PCP - General Physician Title Supervisor 07/07/17 Minna Chawla RN [address] [address] Mill Dresser Diabetes Education 06/30/18 Minna Chawla RN [address] [address] Mill [employer]er Diabetes Education 06/30/18 Chu Cruz PA-C [address] [address] Assigned PCP 11/14/17 Lisa Riggs, RN Clinic Timber Appraiser Primary Care - CC 06/14/2006/16 Dario Potter MD [address] [place], [place] [address] Assigned Musculoskeletal Provider 08/30/20 01/10/22 Luis Miguel Woodson MD Assigned Heart and Vascular Provider 08/30/20 06/26/22 Matheus Medina MD [address] [place] [address] [place] [address] Assigned Surgical Provider 08/30/20 11/30/20 Daisy Mejia, TUCK POINTER [address] [place] [address] Assigned Neuroscience Provider 09/07/21 03/05/23 Aruna Mart [address] [place] [address] Mill Dresser 01/16/22 Chris Ricketts DPM [address] [place] [address] [place] [address] Assigned Musculoskeletal Provider 01/11/22 12/11/22 Chris Ricketts DPM [address] [place] [address] [place] [address] Assigned Surgical Provider 12/12/22 02/28/24 Clem Maynard MD [address] [place] [phone] Cardiovascular Disease 01/07/23 Clem Maynard MD [address] [place] [phone] Assigned Heart and Vascular Provider 01/16/23 07/30/24 documented as of this encounter
--- OUTSIDE RECORDS SUMMARY | 2024-12-22 16:00 | XMS_ITS | Encounter Summary ---
Author Organization [facility] Address [address] [place] [address] Care Team Providers Care Boiler Tube Blower Name Role Phone Chu Cruz PA-C Primary Care Provider Minna Chawla RN Unavailable Unavailable Minna Chawla RN Unavailable Unavailable Chu Cruz PA-C Unavailable Lisa Riggs RN Unavailable Dario Potter MD Unavailable Luis Miguel Woodson MD Unavailable Unavailable Matheus Medina MD Unavailable Daisy Mejia ACTIVITIES ATTENDANT Unavailable [phone] Aruna Mart Unavailable Chris Ricketts DPM Unavailable Chris Ricketts DPM Unavailable Clem Maynard MD Unavailable Clem Maynard MD Unavailable [phone] Reason for Visit * Reason Comments Home Care[facility]ice Encounter Details Date Type Department Care Team (Late st Contact Info) Description 07/24/2019 Documentation Only [facility] [address] [place] [phone] Chu Cruz PA-C [address] [address] Home [facility] Social History Tobacco Use Types Packs/Day Years Used Date Smoking Tobacco: Former Smokeless Tobacco: Never Comments:only 6 months use Alcohol Use Standard Drinks/Week Comments Yes 0 (1 standard drink = 0.6 oz pur e alcohol) rarely PHQ-2 Answer Date Recorded PHQ-2 Score 2 01/26/2019 Comments No Sex and Gender Information Value Date Recorded Sex Assigned at Female 01/14/2021 7:41 PM CUTTER INSPECTOR Legal Sex Female 6:11 PM CDT Gender Identity Female 01/14/2021 7:41 PM CUTTER INSPECTOR Sexual Orientation Straight 01/14/2021 7: 41 PM CUTTER INSPECTOR documented as of this encounter Plan of Treatment Not on file documented as of this encounter Visit Diagnoses Not on filedocumented in this encounter Additional Health Concerns Infection Onset Date Last Indicated Resolved Time Rule Out COVID-19 09/26/2020 09/26/2020 09/27/2020 5:31 PM CUTTER INSPECTOR Rule Out COVID-19 05/28/2022 05/28/2022 05/28/2022 8:56 PM CDT Rule Out COVID-19 07/03/2022 07/03/2022 07/03/2022 6:55 PM CDT Assessment Noted Time PHQ-9 Depression Total Score: 3 01/28/20 19 7:06 AM CDT documented as of this encounter Care Teams Boiler Tube Blower Relationship Specialty Start Date End Date Chu Cruz PA-C [address] [address] PCP - General Physician Floatlight Loading Supervisor 07/07/17 Minna Chawla, RN [address] [address] Psychologist Industrial Organizational Diabetes Education 06/30/18 Minna Chawla RN [address] [address] Psychologist Industrial Organizational Diabetes Education 06/30/18 Chu Cruz PA-C [address] [facility] [address] [place] [address] Assigned PCP 11/14/17 Lisa Riggs, RN Clinic Retail Advertising Sales Manager Primary Care - CC 06/14/2006/16 Dario Potter MD [address] [place] [address] [place] [address] Assigned Musculoskeletal Provider 08/30/20 01/10/22 Luis Miguel Woodson MD Assigned Heart and Vascular Provider 08/30/20 06/26/22 Matheus Medina MD [address] [facility] [address] Assigned Surgical Provider 08/30/20 11/30/20 Daisy Mejia ACTIVITIES ATTENDANT [address] [facility] [address] [place], [place] [address] Assigned Neuroscience Provider 09/07/21 03/05/23 Aruna Mart [address] [place] [address] Psychologist Industrial Organizational 01/16/22 Chris Ricketts DPM [address] [place] [address] [place] [address] Assigned Musculoskeletal Provider 01/11/22 12/11/22 Chris Ricketts DPM [address] [place] [address] [place] [address] Assigned Surgical Provider 12/12/22 02/28/24 Clem Maynard MD [address] [place] [phone] Cardiovascular Disease 01/07/23 Clem Maynard MD [address] [place] [phone] Assigned Heart and Vascular Provider 01/16/23 07/30/24 documented as of this encounter
--- OUTSIDE RECORDS SUMMARY | 2024-12-22 16:00 | XMS_ITS | Clinical Summary ---
Author Organization [facility] Address [place], [place] [address] Care Team Providers Care Donor Technician Name Role Phone Anisa Matthews NP Primary Care Provider [phone] Allergies Active Allergy Reactions Criticality Noted Date Comments Diatrizoate Allergen Hives 08/03/2016 Phenobarbital Hives 06/26/2016 Propoxyphene Hives 06/26/2016 Medications acetaminophen (TYLENOL) 325 mg tablet Take 650 mg by mouth every 4 hours. 10/31/20 16 Active amiodarone (CORDARONE) 200 mg tablet Take 1 tablet by mouth once daily. 01/19/20 17 Active furosemide (LASIX) 20 mg tablet Take 20 mg by mouth once daily. 11/12/19 17 Active metoprolol tartrate (LOPRESSOR) 25 mg tablet Take 12.5 mg by mouth 2 times daily. Patient reports taking (25mg) 1/2 tablet in AM and PM 10/31/20 16 Active pregabalin (LYRICA) 150 mg capsule Take 150 mg by mouth 2 times daily. 08/05/20 16 Active sennosides (SENNA) 8.6 mg tablet Take 1 tablet by mouth daily in evening if needed. Active insulin aspart (NOVOLOG) 100 unit/mL solution for injection Inject 1-7 units subcutaneous once daily with lunch. Patient only supplements with lunch - If BS > 160 09/18/20 16 Active lubiprostone (AMITIZA) 24 mcg capsuleIndicatio ns:opioid-induce d constipation Take 24 mcg by mouth 2 times daily with meals. Active methocarbamol (ROBAXIN) 500 mg tablet Take 500 mg by mouth 3 times daily. Active isosorbide mononitrate (IMDUR) 60 mg extended release tablet 24 hour Take 60 mg by mouth at bedtime. Active atorvastatin (LIPITOR) 10 mg tablet Take 10 mg by mouth once daily. Active oxyCODONE 10 mg tablet Take 10 mg by mouth 3 times daily if needed for Pain Active methocarbamol (ROBAXIN) 750 mg tabletIndication s:Status post surgery Take 1 tablet by mouth every 6 hours if needed for Muscle Spasm. 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 0 09/28/20 Active Additional Information Patient taking differently: 25-32 unitSubcutaneous TWICE DAILY BEFORE MEALS,Patient take 32 units in AM and 25 units with supper, Reported on 10/31/2021 fexofenadine (BENNIE) 180 mg tablet Take 180 mg by mouth once daily with a meal. Do not crush or chew. Active omeprazole 20 mg tablet Take 20 mg by mouth once daily. Active escitalopram oxalate (LEXAPRO) 10 mg tablet Take 10 mg by mouth once daily. Active warfarin (COUMADIN) 2 mg tablet Take 2-4 mg by mouth once daily. 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 from [facility] ? Dogger and model: Medtronic Versa Pacemaker. Date of implant: 03-16-2011 ? Indication for device: sick sinus syndrome ? Cardiac resynchronization therapy: no ? Battery longevity documented as less than 3 Months: no ? Are any of the leads less than 3 months old: no ? Programming ? Pacing mode and programmed lower rate: DDDR 60-130 ? Rate-responsive sensor type, if programmed on: accelerometer Underlying rhythm and heart rate if it can be determined: Sinus rajesh w/first degree AV block No rate listed on scan ? What is the response of this device to magnet placement: asynchronous ? PM magnet pacing rate: 85 ? Any alert status on CIED generator or lead: no ? 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 0 06/26/2016 Overview (10/31/2021): Last Assessment & Plan: Somewhat subtherapeutic with an INR of 1.86 Pharmacy to manage Moderate recurrent major depression 06/26/2016 Overview (10/31/2021): Last Assessment & Plan: In remission Continue zoloft Recheck in 6 months Compression fracture of thor acic vertebra with routine healing Encounters Date Type Department Care Team Description 11/21/2024 Lab Requisition [facility] [phone] Unknown, Doctor 11/18/2024 Lab Requisition [facility] [address] [place] [address] Joel Persaud MD from Last 3 Months Immunizations Name Administration Dates Next Due Influenza, Inactivated AIIV4 (Age 65+ Years) Preserv Free 11/01/2021 Social History Tobacco Use Types Packs/Day Years Used Date Smoking Tobacco: Never Smokeless Tobacco: Never Alcohol Use Standard Drinks/Week Comments Yes 0 (1 standard drink = 0.6 oz pur e alcohol) rare Social Connections Answer Date Recorded Frequency of Communication with Friends and Fami ly Not on file 03/02/2024 Comments No Sex and Gender Information Value Date Recorded Sex Assigned at Not on file Legal Sex Female 6:06 AM ORDER DEPARTMENT SUPERVISOR Gender Identity Not on file Sexual Orientation Not on file Obstetrics History Last Filed Vital Signs Vital Sign Reading Time Taken Comments Blood Pressure 117/53 11/07/2021 8:05 AM ORDER DEPARTMENT SUPERVISOR Pulse 60 11/07/2021 8:05 AM ORDER DEPARTMENT SUPERVISOR Temperature 35.8 C (96.4 F) 11/07/2021 8:05 AM ORDER DEPARTMENT SUPERVISOR Respiratory Rate 16 11/07/2021 8:05 AM ORDER DEPARTMENT SUPERVISOR Oxygen Saturation 95% 11/07/2021 8:05 AM ORDER DEPARTMENT SUPERVISOR Inhaled Oxygen Concentration - - Weight 105.9 kg (233 lb 6.4 oz) 11/07/2021 6:00 AM ORDER DEPARTMENT SUPERVISOR Height 168.9 cm (5' 6.5) 10/31/2021 5:47 PM ORDER DEPARTMENT SUPERVISOR Body Mass Index 37.11 10/31/2021 5:47 PM ORDER DEPARTMENT SUPERVISOR Plan of Treatment Health Maintenance Due Date Last Done Comments Tdap 1946 Depression screening for age 12+ 1948 Pneumococcal series for age 50+ (1 of 2 - PCV) 1955 Tetanus booster 1956 Zoster (shingles) series for age 50+ (1 of 2) 1986 DEXA/DXA scan for age 65+ 2001 Medicare Wellness for age 65+ 2001 RSV vaccine for adults or (1 - 1-dose 75+ series) 2011 BMI (ht and wt on same day) for age 18+ 01/18/2018 01/18/2017 COVID-19 vaccine series ( season) 2024 08/27/2023, 10/15/2022, 10/18/2021, Additional history exists Influenza for age 65+ 07/09/2024 11/01/2021 Medical Devices Implanted Type Area Dogger Device Identifier Shelf Expiration Date Model / Serial / Lot [id number] - [id number] Implanted:Qty: 1 on 01/26/2017 by Paco Dobbins MD at [facility] [address] / [id number] / Description:PROGRAMMABLE TOLU ROSTIMULATOR Lead Spinal 65cm 5-6-5 Specify Surescan Mri - [id number] Implanted:Qty: 1 on 09/26/2018 by Emigdio Cantu MD at [facility] N/A: Lumbar Vertebrae Medtronic Pain Therapy 05/02/2022 [id number] / / [id number] Description:NO STICKER JM Stimulator Spinal Intellis Mri - [id number] Implanted:Qty: 1 on 09/26/2018 by Emigdio Cantu MD at [facility] N/A: Lumbar Vertebrae Medtronic Pain Therapy 06/21/2019 [id number] / [id number] / Description:NO STICKER JM Envlp Neuro Tyrx Absorb Antibacterial - [id number] Implanted:Qty: 1 on 09/26/2018 by Emigdio Cantu MD at [facility] N/A: Lumbar Vertebrae Medtronic 11/07/2018 [id number] / / [id number] Description:NO STICKER JM Procedures Procedure Name Priority Date/Time Associated Diagnosis Comments HEMOGLOBIN A1C Routine 11/22/2024 7:17 AM ORDER DEPARTMENT SUPERVISOR Type 2 diabetes mellitus without complications (HC) URINE CULTURE Routine 11/17/2024 8:00 PM ORDER DEPARTMENT SUPERVISOR Type 2 diabetes mellitus without complications (HC) Urinary tract infection, site not specified from Last 3 Months Results * (ABNORMAL) HEMOGLOBIN A1C (11/22/2024 7:17 AM ORDER DEPARTMENT SUPERVISOR) HEMOGLOBIN A1C SCREENING 8.0(H) <=6.4 % 11/22/2024 8:25 AM ORDER DEPARTMENT SUPERVISOR [facility] Blood BLOOD SPECIMEN / Unknown Butterfly / Unknown 11/22/2024 7:17 AM ORDER DEPARTMENT SUPERVISOR 11/22/2024 8:17 AM ORDER DEPARTMENT SUPERVISOR Narrative [facility] - 11/22/2024 8:25 AM ORDER DEPARTMENT SUPERVISOR (<5.7%) Normal (5.7% to 6.4%) Indicates prediabetes (>=6.5%) Confirms diabetes Falsely low levels may be seen with: Recent Transfusion, Recent Significant Blood Loss, Hemolytic Diseases, or Falsely elevated levels may be seen with: Untreated Anemias, Splenectomy us Doctor Unknown CHEMISTRY Final Result [facility] [address] [place], [place] [id number] * (ABNORMAL) URINE CULTURE (11/17/2024 8:00 PM ORDER DEPARTMENT SUPERVISOR) CULTURE RESULT(A) 11/21/2024 9:46 AM ORDER DEPARTMENT SUPERVISOR [facility] CULTURE >100,000 CFU/mL Enterococcus faecium 11/21/2024 9:46 AM ORDER DEPARTMENT SUPERVISOR [facility] Comment: Levofloxacin susceptibilities for Enterococcus available upon request for urine isolates ONLY. Levofloxacin is not routinely recommended for Enterococcus and can ONLY be used for infections isolated in the urinary tract. In the setting of polymicrobial urine cultures, Enterococcus often represents colonization and may not necessitate treatment. CULTURE 10,000-50,000 CFU/mL Enterobacter cloacae complex 11/21/2024 9:46 AM ORDER DEPARTMENT SUPERVISOR [facility] Comment: May develop resistance during prolonged therapy with 3rd-generation cephalosporins as a result of derepression of AmpC beta-lactamase. Therefore, isolates that are initially susceptible may become resistant within 3 to 4 days after initiation of therapy. Testing repeat isolates may be warranted. Oral cephalosporins are also not recommended. CULTURE 10,000-50,000 CFU/mL Multiple organisms probable contaminants 11/21/2024 9:46 AM ORDER DEPARTMENT SUPERVISOR [facility] Urine URINE SPECIMEN / Unknown Client Collect / Unknown 11/17/2024 8:00 PM ORDER DEPARTMENT SUPERVISOR 11/18/2024 6:19 PM ORDER DEPARTMENT SUPERVISOR Narrative Organism Antibiotic Method Susceptibility Enterococcus faecium LEVOFLOXACIN 2: S Enterococcus faecium AMPICILLIN >=32: R Enterococcus faecium NITROFURANTOIN 64: I Joel Persaud MD MICROBIOLOGY Final Result [facility] [address] [place] [address], from Last 3 Months Insurance MEDICARE PART B HB ONLY [place] BLUE MR [place] ONLY TRAVELERS Advance Directives * DNR (Latest Code Status on File) Date Activated Date Inactivated Comments 10/31/2021 9:46 PM 11/07/2021 3:46 PM Question Answer Comments Code Status Discussion: Reviewed Preferences * Full Code Date Activated Date Inactivated Comments 10/31/2021 6:56 PM 10/31/2021 9:46 PM Question Answer Comments Code Status Discussion: Reviewed Preferences * Full Code Date Activated Date Inactivated Comments 09/26/2018 12:35 PM 09/28/2018 2:07 PM Question Answer Comments Code Status Discussion: Not Discussed * Full Code Date Activated Date Inactivated Comments 01/26/2017 12:45 PM 01/26/2017 9:36 PM Care Teams Donor Technician Relationship Specialty Start Date End Date Anisa Matthews NP [address] [place] [id number] PCP - General Emergency Medicine 08/08/24
--- OUTSIDE RECORDS SUMMARY | 2024-12-22 16:00 | XMS_ITS | Encounter Summary ---
Author Organization [facility] Address [address] [place] [address] Care Team Providers Care Business Account Manager Name Role Phone Chu Cruz PA-C Primary Care Provider Minna Chawla RN Unavailable Unavailable Minna Chawla RN Unavailable Unavailable Chu Cruz PA-C Unavailable [phone] Lisa Riggs RN Unavailable Dario Potter MD Unavailable Luis Miguel Woodson MD Unavailable Unavailable Matheus Medina MD Unavailable Daisy Mejia TILE SETTER Unavailable Aruna Mart Unavailable Chris Ricketts DPM Unavailable [phone] Chris Ricketts DPM Unavailable Clem Maynard MD Unavailable [phone] Clem Maynard MD Unavailable [phone] Reason for Visit * Reason Comments Home Care/Hospice Encounter Details Date Type Department Care Team (Late st Contact Info) Description 07/24/2019 Documentation Only [address] [place] [address] Chu Cruz PA-C [address] [address] Home Care/Hospice Social History Tobacco Use Types Packs/Day Years Used Date Smoking Tobacco: Former Smokeless Tobacco: Never Comments:only 6 months use Alcohol Use Standard Drinks/Week Comments Yes 0 (1 standard drink = 0.6 oz pur e alcohol) rarely PHQ-2 Answer Date Recorded PHQ-2 Score 2 01/26/2019 Comments No Sex and Gender Information Value Date Recorded Sex Assigned at Female 01/14/2021 7:41 PM SENIOR DATA QUALITY ANALYST Legal Sex Female 6:11 PM CDT Gender Identity Female 01/14/2021 7:41 PM SENIOR DATA QUALITY ANALYST Sexual Orientation Straight 01/14/2021 7: 41 PM SENIOR DATA QUALITY ANALYST documented as of this encounter Plan of Treatment Not on file documented as of this encounter Visit Diagnoses Not on filedocumented in this encounter Additional Health Concerns Infection Onset Date Last Indicated Resolved Time Rule Out COVID-19 09/26/2020 09/26/2020 09/27/2020 5:31 PM SENIOR DATA QUALITY ANALYST Rule Out COVID-19 05/28/2022 05/28/2022 05/28/2022 8:56 PM CDT Rule Out COVID-19 07/03/2022 07/03/2022 07/03/2022 6:55 PM CDT Assessment Noted Time PHQ-9 Depression Total Score: 3 01/28/20 19 7:06 AM CDT documented as of this encounter Care Teams Business Account Manager Relationship Specialty Start Date End Date Chu Cruz PA-C [address] [address] PCP - General Physician Tavern Keeper 07/07/17 Minna Chawla, RN [address] [address] Supervisor [employer] Diabetes Education 06/30/18 Minna Chawla RN [address] [address] Supervisor [employer] Diabetes [employer] 06/30/18 Chu Cruz PA-C [address] [facility] [address] [place], [place] [address] Assigned PCP 11/14/17 Lisa Riggs, RN Clinic Lead Developer Primary Care - CC 06/14/2006/16 Dario Potter MD [address] [place] [address] [place] [address] Assigned Musculoskeletal Provider 08/30/20 01/10/22 Luis Miguel Woodson MD Assigned Heart and Vascular Provider 08/30/20 06/26/22 Matheus Medina MD [address] [place] [address] [place] [address] Assigned Surgical Provider 08/30/20 11/30/20 Daisy Mejia NP [address] [facility] [address] [place], [place] [address] Assigned Neuroscience Provider 09/07/21 03/05/23 Aruna Mart [address] [place] [address] Supervisor [employer] 01/16/22 Chris Ricketts DPM [address] [place] [address] [place] [address] Assigned Musculoskeletal Provider 01/11/22 12/11/22 Chris Ricketts DPM [address] [place] [address] [address] [place] [address] Assigned Surgical Provider 12/12/22 02/28/24 Clem Maynard MD [address] [place] [phone] Cardiovascular Disease 01/07/23 Clem Maynard MD [address] [place] [phone] Assigned Heart and Vascular Provider 01/16/23 07/30/24 documented as of this encounter
--- OUTSIDE RECORDS SUMMARY | 2024-12-22 16:00 | XMS_ITS | Clinical Summary ---
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 Name Role Phone Chu Cruz PA-C Primary Care Provider Minna Chawla RN Unavailable Unavailable Minna Chawla RN Unavailable Unavailable Chu Cruz PA-C Unavailable [phone] Aruna Mart Unavailable [phone] Clem Maynard MD Unavailable [phone] Allergies Active Allergy Reactions Criticality Noted Date Comments Contrast Dye Hives,Unknown 08/03/2016 Propoxyphene Hives 06/26/2016 Phenobarbital 06/26/2016 Medications LYRICA 150 MG capsuleIndication s:Chronic bilateral low back pain with bilateral sciatica TAKE ONE CAPSULE BY MOUTH TWICE DAILY 60 capsule 1 02/03/20 17 Active order for DME Equipment ordered: RESMED Auto PAP Mask type: Full face Settings: 5-15 CM H2O Active blood glucose (NO BRAND SPECIFIED) test stripIndications: 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 100 each 5 09/14/20 Active blood glucose monitoring (NO BRAND SPECIFIED) meter device kitIndications:Ty pe 2 diabetes mellitus with insulin therapy (H) Use to test blood sugar 3 times daily or as directed. Preferred blood glucose meter OR supplies to accompany: Blood Glucose Monitor Brands: per insurance. 1 kit 12/27/19 Active blood glucose calibration (NO BRAND SPECIFIED) solutionIndicatio ns: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 (H) To accompany: Blood Glucose Monitor Brands: per insurance. 1 Bottle 3 12/27/19 Active thin (NO BRAND SPECIFIED) lancetsIndication s: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 (H) Use with lanceting device. To accompany: Blood Glucose Monitor Brands: per insurance. 100 each 6 12/27/19 21 Active blood glucose (NO BRAND SPECIFIED) test stripIndications: 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 To accompany: Blood Glucose Monitor Brands: per insurance. 100 strip 6 02/22/20 Active alcohol swab prep padsIndications:T ype 2 diabetes mellitus with insulin therapy (H) Use to swab area of injection/jamie as directed. 100 each 6 02/22/20 21 Active blood glucose monitoring (SOFTCLIX) lancetsIndication s: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 (H) Use to test blood sugar 3 times daily. 100 each 02/22/20 21 Active Continuous Blood Gluc Sensor (FREESTYLE TEDDY 2 SENSOR) MISCIndications:D iabetes mellitus with stage 3 chronic kidney disease (H) 1 Device every 14 days 1 each 3 01/17/20 22 Active senna-docusate (SENOKOT-S/SETH LACE) 8.6-50 MG tabletIndications :Acute post-operative pain Take 1 tablet by mouth 2 times daily 15 tablet 02/28/20 22 Active lubiprostone (AMITIZA) 24 MCG capsule Take 1 capsule (24 mcg) by mouth 2 times daily (with meals) 07/22/20 22 Active polyethylene glycol (MIRALAX) 17 GM/Dose powderIndications :Constipation, unspecified constipation type Take 17 g by mouth daily 510 g 07/22/20 22 Active escitalopram (LEXAPRO) 10 MG tabletIndications :Adjustment disorder with depressed mood Take 1 tablet (10 mg) by mouth daily 90 tablet 3 10/15/20 22 Active isosorbide mononitrate (IMDUR) 30 MG 24 hr tabletIndications :Nonischemic cardiomyopathy (H) Take 1 tablet (30 mg) by mouth daily 90 tablet 3 10/15/20 22 Active apixaban ANTICOAGULANT (ELIQUIS) 2.5 MG tabletIndications :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 fibrillation (H),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 with INR goal of 2.0-3.0 Take 1 tablet (2.5 mg) by mouth 2 times daily 180 tablet 1 01/19/20 23 Active insulin glargine (LANTUS PEN) 100 UNIT/ML penIndications:Ty pe 2 diabetes mellitus with insulin therapy (H) Inject 15 Units Subcutaneous every morning (before breakfast) 15 mL 1 01/19/20 23 Active omeprazole (PRILOSEC) [address] capsuleIndication s:Gastroesophagea l reflux disease, unspecified whether esophagitis present Take 1 capsule (40 mg) by mouth daily 90 capsule 3 01/19/20 23 Active Insulin Glargine-yfgn 100 UNIT/ML SOPN INJECT 15 UNITS SUBCUTANEOUSLY IN THE MORNING BEFORE BREAKFAST 01/19/20 23 Active furosemide (LASIX) 20 MG tabletIndications :Nonischemic cardiomyopathy (H) Take 1 tablet (20 mg) by mouth daily Take daily as needed for increased leg swelling 90 tablet 3 02/06/20 23 Active HYDROcodone-aceta minophen (NORCO) 10-325 MG per tablet Take 1 tablet by mouth every 4 hours as needed for severe pain 90 tablet 04/29/20 23 Active nystatin (MYCOSTATIN) 245565 UNIT/GM external powderIndications :Intertrigo Apply topically 2 times daily 30 g 1 04/29/20 23 Active metoprolol tartrate (LOPRESSOR) 25 MG tabletIndications :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 fibrillation (H) Take 0.5 tablets (12.5 mg) by mouth 2 times daily 90 tablet 3 10/14/20 23 Active insulin pen needle (32G X 6 MM) 32G X 6 MM miscellaneousIndi cations: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 (H) Use 1 pen needles daily or as directed. 100 each 1 10/14/20 23 Active mirtazapine (REMERON) 15 MG tabletIndications :Adjustment disorder with depressed mood,Insomnia, unspecified type TAKE ONE TABLET BY MOUTH AT BEDTIME 90 tablet 12/01/19 24 Active Continuous Blood Gluc Order Editor (DEXCOM G7 GRAIN SAMPLER) ROYCE 1 Application by In Vitro route See Admin Instructions 01/28/20 24 Active oxyCODONE IR (ROXICODONE) 10 MG tablet Take 1 tablet by mouth every 8 hours as needed for moderate pain 12/22/19 24 Active escitalopram (LEXAPRO) 5 MG tablet Take 1 tablet by mouth daily at 2 pm 01/28/20 24 Active pregabalin (LYRICA) 50 MG capsule Take 50 mg by mouth 2 times daily 12/01/19 24 Active insulin regular (HUMULIN R VIAL) 100 UNIT/ML injectionIndicati ons: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 (H) Inject 1-7 Units Subcutaneous daily before lunch. Do Not give Insulin if Pre-Meal BG less than 150. For Pre-Meal BG 150 - 199 give 1 unit. For Pre-Meal BG 200 - 249 give 2 units. For Pre-Meal BG 250 - 299 give 3 units. For Pre-Meal BG 300 - 349 give 4 units. For Pre-Meal BG 350- 399 give 5 units. For Pre-Meal BG 400-449 give 6 units For Pre-Meal BG greater than or equal to 450 give 7 units. 10 mL 2 11/19/19 18 022 Disconti nued(Sto p at Discharg e) Active Problems Problem Noted Date Diagnosed Date Delirium 01/20/2024 Altered mental status 01/19/2024 History of amputation of right great toe 023 Acute kidney injury superimposed on chronic kidn ey disease 07/09/2022 History of atrial fibrillation 07/05/2022 Coagulation defect (H)-Eliquis 07/05/2022 Severe sepsis with acute organ dysfunction 07/04 History of cardiomyopathy 07/04/2022 Therapeutic opioid induced constipation 07/04/20 22 Hypoalbuminemia 07/04/2022 S/P insertion of spinal cord stimulator 07/04/20 22 Failure to thrive in adult 07/03/2022 Ketonuria 07/03/2022 Pseudohyponatremia 07/03/2022 Recurrent falls 07/03/2022 Choledocholithiasis 02/25/2022 Compression fracture of thor acic vertebra with routine healing 01/28/2022 Discitis of thoracolumbar region 10/31/2021 Obesity (BMI 30.0-34.9) 10/31/2021 Complete atrioventricular block 12/19/2020 Overview (12/19/2020): Added automatically from request for surgery [id number] Pacemaker at end of battery life 12/19/2020 Overview (12/19/2020): Added automatically from request for surgery [id number] Thrombocytopenia 11/04/2020 Stage 3a chronic kidney disease 11/04/2020 Acute pain of left knee 08/01/2020 Pain in joint involving ankle and foot, left History of total left knee replacement 0 Hypotension 06/11/2020 Syncope 06/10/2020 Avulsion fracture of distal fibula 06/10/2020 Acute cystitis without hematuria 06/10/2020 Osteopenia, unspecified location 03/28/2019 Dyspnea 12/20/2018 Assessment & Plan (12/20/2018 8:21 PM MEDICAL ADMINISTRATIVE): Associate with chest pain with no hypoxemia chest x-ray showing no acute changes At this time symptoms have resolved, follow Patellofemoral disorders, unspecified knee 07/16 Patellofemoral disorder, unspecified laterality 07/16/2017 Retinal hemorrhage of left eye 03/11/2017 Assessment & Plan (03/11/2017 3:56 PM CDT): Stable. Is scheduled to see retina specialist Heart failure with reduced ejection fraction, [place] REY class II 10/26/2016 Assessment & Plan (03/11/2017 3:42 PM CDT): Last Echo shows EF- 35% with Grade 1 diastolic Dysfunction with most recent ICD placement earlier in 2016 Stable No excess weight gain Continue lasix , metoprolol, lisinopril and statin Assessment & Plan (11/12/2016 3:19 PM MEDICAL ADMINISTRATIVE): Weights going up Start lasix 20mg daily Assessment & Plan (10/26/2016 8:58 AM MEDICAL ADMINISTRATIVE): Slight worsening SOB . Weights have increased since last visit. Will add lasix - 20mg daily for the next week. Recheck in 1 week. Continue EMILE , b- ava and statin 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 fibrillation with RVR 10/26/2016 Chest pain 10/26/2016 Atypical chest pain 09/17/2016 Assessment & Plan (12/20/2018 8:22 PM MEDICAL ADMINISTRATIVE): Presenting with pain that started at 530 this morning, midsternal without radiation associated with dyspnea EKG in the emergency department showing no acute changes with chronic paced rhythm, troponin x2- Etiology at this point is not clear, could be esophageal in nature. Consider that she could have had a tachyarrhythmia, unlikely to have pulmonary embolism Registered observation with serial troponin, telemetry. Because of her history of cardiomyopathy, will plan for repeat echocardiogram in morning. Assessment & Plan (09/22/2016 1:50 PM MEDICAL ADMINISTRATIVE): Unclear etiology No symptoms currently Is scheduled for a stress test this week Will follow results Chronic pain syndrome 09/17/2016 Morbid obesity due to excess calories 09/17/2016 Cardiomyopathy, unspecified 09/17/2016 Assessment & Plan (12/20/2018 8:21 PM MEDICAL ADMINISTRATIVE): Nonischemic in nature with last echo last year showing an EF of 35-40% Possible related to her current pain, will check echocardiogram tomorrow Cardiac pacemaker in situ 09/17/2016 Assessment & Plan (12/20/2018 8:23 PM MEDICAL ADMINISTRATIVE): Chronic, managed by cardiology, placed initially for AV dissociation Continue outpatient management Elevated serum creatinine 09/17/2016 Assessment & Plan (09/22/2016 1:46 PM MEDICAL ADMINISTRATIVE): Had elevated serum creatinine during the recent Hospitalization Recheck chemistries today Avoid Ibuprofen and Alleve OTC Hyperlipidemia LDL goal <100 07/23/2016 Assessment & Plan (09/22/2016 1:47 PM MEDICAL ADMINISTRATIVE): Continue low intesity statin 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 Assessment & Plan (12/20/2018 8:22 PM MEDICAL ADMINISTRATIVE): Poorly controlled taking insulin Continue home dosing, managed with sliding scale coverage Assessment & Plan (09/22/2016 1:36 PM MEDICAL ADMINISTRATIVE): On NPH insulin 30 Unit BID and Sliding scale insulin -Novolog for meals Sugars well controlled Recheck A1c in 3 months Chronic low back pain 06/26/2016 Overview (09/22/2016): [facility] [place] On Hydrocodone Assessment & Plan (12/20/2018 8:23 PM MEDICAL ADMINISTRATIVE): Managed by pain management, had back stimulator replaced recently, taking daily Percocet Continue Percocet as needed, continue outpatient management by pain management Assessment & Plan (09/22/2016 1:41 PM MEDICAL ADMINISTRATIVE): Chronic low back pain since 1977 when she had a back injury s/p surgeries x5 on lumbar spine Has chronic pain from this Uses Lyrica -150mg BID Uses hydrocodone 2 Times a day daily - followed by [facility] in [place] since this month . 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 fibrillation 06/26/2016 Assessment & Plan (12/20/2018 8:21 PM MEDICAL ADMINISTRATIVE): Currently rate controlled with pacemaker in place On Coumadin chronically for stroke management Monitor with telemetry, continue Coumadin Assessment & Plan (03/11/2017 3:55 PM CDT): Stable and rate controlled since starting amiodarone Will needs labs for follow up She has developed hemorrhage in her left eye last week and is being followed by a retina specialist. Retinal hemorrhage is likely secondary to Diabetic retinopathy but given this current issue , I would recommend cardiology eval to see if she needs to changed to a different medication to avoid retinal toxicity Check AST/ALT and TSH today Refill amiodarone Check INR today She has not been getting her INR's checked Will do a re -referral for INR clinic to follow her Assessment & Plan (11/12/2016 3:15 PM MEDICAL ADMINISTRATIVE): Rate controlled since hospital discharge Continue amiodarone Lisinopril dose reduced to 2.5mg during the hospital stay Continue metoprolol -25mg BID Assessment & Plan (09/22/2016 1:39 PM MEDICAL ADMINISTRATIVE): Rate controlled She has been taking 12.5 mg BID of metoprolol Increase to 25mg BID Continue coumadin for anticoagulation BP at goal Moderate recurrent major depression 06/26/2016 Assessment & Plan (03/11/2017 3:55 PM CDT): In remission Continue zoloft Recheck in 6 months Assessment & Plan (11/12/2016 3:17 PM MEDICAL ADMINISTRATIVE): Has not been well controlled - Advise to start increasing dose to 150mg daily Assessment & Plan (10/26/2016 8:51 AM MEDICAL ADMINISTRATIVE): Worsening symptoms Increase zoloft to 150mg daily Recheck in 3 months Assessment & Plan (09/22/2016 1:45 PM MEDICAL ADMINISTRATIVE): Symptoms well controlled on sertraline Continue Zoloft -100mg daily Reviewed Phq-9 longterm current use of anticoagulant therapy 0 06/26/2016 Assessment & Plan (12/20/2018 8:23 PM MEDICAL ADMINISTRATIVE): Somewhat subtherapeutic with an INR of 1.86 Pharmacy to manage Resolved Problems Problem Noted Date Diagnosed Date Resolved Date Pressure injury of left buttock, unstageable 2 07/30/2022 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 07/08/2022 01/18/2023 Type 2 diabetes mellitus with hyperglycemia 07/04/2022 04/29/2023 Diabetic ulcer of toe of rig ht foot associated with type 2 diabetes mellitus, with bone involvement without evidence of necrosis (H)-Staph aureus 07/04/2022 04/29/2023 Elevated lactic acid level 07/03/2022 0 07/08/2022 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 [address] [place] [id number] Joanna Ascencio, [place] 12/13/2024 Telephone [facility] [address] [place] [id number] Chu Cruz PA-C Outreach from Last 3 Months Immunizations Name Administration Dates Next Due COVID-19 12+ (MODERNA) 08/27/2023 COVID-19 Bivalent 18+ (Moderna) 10/15/2022 COVID-19 MONOVALENT 12+ (Pfizer) 01/16/2021,12/09 Flu, Unspecified 07/09/2015,11/08/2011 Influenza (High Dose) Trivalent,PF (Fluzone) ,08/10/2016 Influenza (IIV3) PF 09/24/2014 Influenza Vaccine 65+ (FLUAD) 11/01/2021 Influenza Vaccine 65+ (Fluzone HD) 08/27/2023, Pneumo Conj 13-V (2010&after) 08/10/2016 Pneumococcal 23 valent 11/17/2017 RSV Vaccine (Arexvy) 08/27/2023 TDAP (Adacel,Boostrix) 05/16/2021 Zoster recombinant adjuvanted (SHINGRIX) 023 Family History Medical History Relation Comments Asthma Daughter Autoimmune Disease Daughter Heart Disease Daughter Lupus Daughter Alcoholism Father Alcoholism Maternal Grandfather Lupus Maternal Grandmother Breast Cancer Mother Lupus Mother Kidney Disease No family hx of Relation Status Comments Daughter Alive Father Maternal Grandfather Maternal Grandmother Mother Son Social History Tobacco Use Types Packs/Day Years Used Date Smoking Tobacco: Former Cigarettes Smokeless Tobacco: Never Tobacco Cessation:Counseling Given: Not Answered Comments:only 6 months use Alcohol Use Standard Drinks/Week Comments Yes 0 (1 standard drink = 0.6 oz pur e alcohol) rarely PHQ-2 Answer Date Recorded PHQ-2 Score 2 04/29/2023 Adolescent Education Answer Date Record ed Getting School Help Needed Not on file 07/30 Comments No Sex and Gender Information Value Date Recorded Sex Assigned at Female 01/14/2021 7:41 PM MEDICAL ADMINISTRATIVE Legal Sex Female 6:11 PM CDT Gender Identity Female 01/14/2021 7:41 PM MEDICAL ADMINISTRATIVE Sexual Orientation Straight 01/14/2021 7: 41 PM MEDICAL ADMINISTRATIVE Last Filed Vital Signs Vital Sign Reading Time Taken Comments Blood Pressure 98/58 04/29/2023 10:32 AM CDT Pulse 75 04/29/2023 10:32 AM CDT Temperature 37 C (98.6 F) 04/29/2023 10:32 AM CDT Respiratory Rate 20 04/29/2023 10:32 AM CDT Oxygen Saturation 93% 04/29/2023 10:32 AM CDT Inhaled Oxygen Concentration - - Weight 86.2 kg (190 lb) 04/29/2023 10:32 AM CDT Height 160.5 cm (5' 3.19) 04/29/2023 10:32 AM C DT Body Mass Index 33.46 04/29/2023 10:32 AM CDT Plan of Treatment Health Maintenance Due Date Last Done Comments URINE DRUG SCREEN 06/26/2017 06/26/2016 EYE EXAM 03/23/2018 03/23/2017 HF ACTION PLAN 07/14/2020 07/14/2017, 10/26/2016 ZOSTER IMMUNIZATION (2 of 2) 04/20/2023 02/23/2023 MICROALBUMIN 05/28/2023 05/28/2022, 07/0 07/2021, 04/05/2020, Additional history exists ALT 07/09/2023 07/09/2022, 06/09, 05/28/2022, Additional history exists CBC 07/11/2023 07/11/2022, 09/0 12/2021, 07/09/2022, Additional history exists HEMOGLOBIN 07/30/2023 07/30/2022, 09/0 02/2022, 07/11/2022, Additional history exists DIABETIC FOOT EXAM 10/15/2023 10/15/2022, 0 12/11/2021, 12/11/2021, Additional history exists A1C 10/29/2023 04/29/2023, 03/1 01/2023, 10/15/2022, Additional history exists BMP 10/29/2023 04/29/2023, 03/3 11/2022, 10/15/2022, Additional history exists PHQ-9 10/29/2023 04/29/2023, 04/09, 01/18/2023, Additional history exists FALL RISK ASSESSMENT 01/19/2024 01/18/2023, 10/15/2022, 03/26/2022, Additional history exists MEDICARE ANNUAL WELLNESS VISIT 01/19/2024 01/18/2023 ANNUAL REVIEW OF HM ORDERS 04/29/202404/29, 05/28/2022, 05/16/2021 LIPID 04/29/2024 04/29/2023, 05/09, 05/16/2021, Additional history exists COVID-19 Vaccine ( season) 2024 08/27/2023, 10/15/2022, 10/18/2021, Additional history exists INFLUENZA VACCINE (#1) 2024 , 08/17/2022, 11/01/2021, Additional history exists ADVANCE CARE PLANNING 01/19/2028 01/18/2023, 022 DTAP/TDAP/TD IMMUNIZATION (2 - Td or Tdap) 05/16/2031 05/16/2021 DEXA 03/27/2034 03/27/2019 DEPRESSION ACTION PLAN Completed 11/17/2017, 2015 Pneumococcal Vaccine: 50+ Years Completed 11/17/2017, 08/10/2016 TSH W/FREE T4 REFLEX Completed 02/29/2020, 04/20/2019, 07/01/2017, Additional history exists URINALYSIS Completed 07/03/2022, 05/09, 06/10/2020, Additional history exists RSV VACCINE Completed 08/27/2023 HPV IMMUNIZATION Aged Out No longer e ligible based on patient's age to complete this topic MENINGITIS IMMUNIZATION Aged Out No l onger eligible based on patient's age to complete this topic Medical Devices Implanted Type Area Seed Analysis Laboratory Assistant Device Identifier Shelf Expiration Date Model / Serial / Lot Abandoned Lead Leads MEDTRONIC Description:(neurostimulator ) Known Abandoned Lead Ok For Mri Leads Description:Per Dr. Dario day, ok to scan with abandoned neurostimulator lead in back seen on xray. Always scan Low YESICA and ask patient to notify with any discomfort. sd Medtronic I* 4076 Capsurefix Novus [id number] Implanted: 011 (Quantity not on file) Leads [employer] INC 4076 CAPSUREFIX NOVUS / [id number] / Medtronic I* 4076 Capsurefix Novus [id number] Implanted: 011 (Quantity not on file) Leads [employer] INC 4076 CAPSUREFIX NOVUS / [id number] / Spine Stimulator Neurology device Pelvis MEDTRONIC [id number] / / Description:Intellis 05831 s chloe cord stimulator with surescan lead [id number] [email or web address] Pacemaker [place] Mri Xt Dr Implanted:Qty: 1 on 12/27/2020 at [facility] Pacemaker [employer] INC 04/21/2022 [id number] / [id number] / [id number] Explanted Type Area Seed Analysis Laboratory Assistant Device Identifier Shelf Expiration Date Model / Serial / Lot Medtronic I* [id number] Versa [id number] Implanted:03/16 (Quantity not on file) Explanted:12/27 by Jose Maria Domínguez MD (Quantity not on file) Pacemaker [employer] INC [id number] VERSA / [id number] / Procedures Procedure Name Priority Date/Time Associated Diagnosis Comments LIPID REFLEX TO DIRECT LDL PANEL Routine 04/29/2023 10:07 AM CDT BASIC METABOLIC PANEL Routine 04/29/2023 10:07 AM CDT HEMOGLOBIN A1C Routine 04/29/2023 10:07 AM CDT HEMOGLOBIN Routine 07/30/2022 11:23 AM CDT Failure to thrive in adult CBC WITH PLATELETS Routine 07/11/2022 4: 40 AM CDT COMPREHENSIVE METABOLIC PANEL Routine 07/09/2022 7:37 PM CDT ROUTINE UA WITH MICROSCOPIC REFLEX TO CULTURE STAT 07/03/2022 9:46 PM CDT PHQ-9 DEPRESSION SCREENING ORDER Routine 06/04/2022 ALBUMIN RANDOM URINE QUANTITATIVE Routine 05/28/2022 6:04 PM CDT 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 (H) TSH WITH FREE T4 REFLEX Routine 02/29/2020 1:32 PM CDT 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 (H) Unintended weight loss DX BONE DENSITY Routine 03/27/2019 2:20 PM CDT Asymptomatic postmenopausal status EYE EXAM - HIM SCAN Routine 03/23/2017 DRUG ABUSE SCREEN (NL, RW) Routine 06/26/2016 10:29 AM CDT Chronic bilateral low back pain with bilateral sciatica from Last 3 Months or Most Recently Relevant to Health Maintenance Results * Lipid panel reflex to direct LDL Fasting (04/29/2023 10:07 AM CDT) Cholesterol 139 <200 mg/dL 04/29/2023 12:57 PM CDT [facility] Triglycerides 132 <150 mg/dL 04/29/2023 12:57 PM CDT [facility] Direct Measure HDL 50 >=50 mg/dL 2022 12:57 PM CDT [facility] LDL Cholesterol Calculated 63 <=100 mg/dL 04/29/2023 12:57 PM CDT [facility] Non HDL Cholesterol 89 <130 mg/dL 04/29/2023 12:57 PM CDT [facility] Blood BLOOD SPECIMEN / Unknown Venipuncture / Unknown 04/29/2023 10:07 AM CDT 04/29/2023 10:07 AM CDT Narrative [facility] - 04/29/2023 12:57 PM CDT Cholesterol Desirable: <200 mg/dL Triglycerides Normal: Less than 150 mg/dL Borderline High: 150-199 mg/dL High: 200-499 mg/dL Very High: Greater than or equal to 500 mg/dL Direct Measure HDL Female: Greater than or equal to 50 mg/dL Male: Greater than or equal to 40 mg/dL LDL Cholesterol Desirable: <100mg/dL Above Desirable: 100-129 mg/dL Borderline High: 130-159 mg/dL High: 160-189 mg/dL Very High: >= 190 mg/dL Non HDL Cholesterol Desirable: 130 mg/dL Above Desirable: 130-159 mg/dL Borderline High: 160-189 mg/dL High: 190-219 mg/dL Very High: Greater than or equal to 220 mg/dL Chu Cruz PA-C LAB - BLOOD ORDERABLES Final Result [facility] [address] (Main level, no room number) [place] [address], [place] [phone] * (ABNORMAL) Hemoglobin A1c (04/29/2023 10:07 AM CDT) Hemoglobin A1C 7.3(H) 0.0 - 5.6 % 04/29/2023 10:20 AM CDT [facility] Comment: Normal <5.7% Prediabetes 5.7-6.4% Diabetes 6.5% or higher Note: Adopted from ADA consensus guidelines. Blood BLOOD SPECIMEN / Unknown Venipuncture / Unknown 04/29/2023 10:07 AM CDT 04/29/2023 10:07 AM CDT Chu Cruz PA-C LAB - BLOOD ORDERABLES Final Result [facility] [address] (no room number, 1st floor of clinic) [place] [address], [place] [phone] * (ABNORMAL) Basic metabolic panel (Ca, Cl, CO2, Creat, Gluc, K, Na, BUN) (04/29/2023 10:07 AM CDT) Sodium 135(L) 136 - 145 mmol/L 04/29/2023 12:57 PM CDT [facility] Potassium 4.3 3.4 - 5.3 mmol/L 04/29/2023 12:57 PM CDT [facility] Chloride 96(L) 98 - 107 mmol/L 04/29/2023 12:57 PM CDT [facility] Carbon Dioxide (CO2) 24 22 - 29 mmol/L 04/29/2023 12:57 PM CDT [facility] Anion Gap 15 7 - 15 mmol/L 04/29/2023 12:57 PM CDT [facility] Urea Nitrogen 32.2(H) 8.0 - 23.0 mg/dL 04/29/2023 12:57 PM CDT [facility] Creatinine 1.65(H) 0.51 - 0.95 mg/dL 04/29/2023 12:57 PM CDT [facility] Calcium 10.2 8.8 - 10.2 mg/dL 04/29/2023 12:57 PM CDT [facility] Glucose 204(H) 70 - 99 mg/dL 04/29/2023 12:57 PM CDT [facility] GFR Estimate 30(L) >60 mL/min/1.7 3m2 04/29/2023 12:57 PM CDT [facility] Blood BLOOD SPECIMEN / Unknown Venipuncture / Unknown 04/29/2023 10:07 AM CDT 04/29/2023 10:07 AM CDT Chu Cruz PA-C LAB - BLOOD ORDERABLES Final Result [facility] [address] [facility] (Main level, no room number) [place] [address], [facility] [phone] * Hemoglobin (07/30/2022 11:23 AM CDT) Hemoglobin 14.0 11.7 - 15.7 g/dL 07/30/2022 11:41 AM CDT ER LABORATORY Blood STRUCTURE OF RIGHT UPPER LIMB / Unknown Venipuncture / Unknown 07/30/2022 11:23 AM CDT 07/30/2022 11:23 AM CDT Chu Cruz PA-C LAB - BLOOD ORDERABLES Final Result ER LABORATORY [facility] Lab [address] (no room number, 1st floor of clinic) [place] [address], [place] [phone] * (ABNORMAL) CBC with platelets (07/11/2022 4:40 AM CDT) Pathologist [facility] WBC Count 5.5 4.0 - 11.0 10e3/uL 07/11/2022 4:51 AM CDT PH LABORATORY RBC Count 3.50(L) 3.80 - 5.20 10e6/uL 07/11/2022 4:51 AM CDT PH LAB[facility]AT[facility] Hemoglobin 10.2(L) 11.7 - 15.7 g/dL 07/11/2022 4:51 AM CDT PH LAB[facility]ATORY Hematocrit 30.4(L) 35.0 - 47.0 % 07/11/2022 4:51 AM CDT PH [facility]AT[facility] MCV 87 78 - 100 fL 07/11/2022 4:51 AM CDT PH LAB[facility]ATORY MCH 29.1 26.5 - 33.0 pg 07/11/2022 4:51 AM CDT PH LAB[facility]ATORY MCHC 33.6 31.5 - 36.5 g/dL 07/11/2022 4:51 AM CDT PH LAB[facility]ATORY RDW 14.0 10.0 - 15.0 % 07/11/2022 4:51 AM CDT PH LAB[facility] Platelet Count 138(L) 150 - 450 10e3/uL 07/11/2022 4:51 AM CDT PH LAB[facility]AT[facility] Blood VENOUS LINE / Unknown VAD(CVC, PICC) / Unknown 07/11/2022 4:40 AM CDT 07/11/2022 4:49 AM CDT us Palmira Gil MD LAB - BLOOD ORDERAB LES Final Result PH LABORATORY [facility] [address] Lab (Main level, no room number) [place] [address], [place] [phone] * (ABNORMAL) Comprehensive metabolic panel (07/09/2022 7:37 PM CDT) [facility] Sodium 140 133 - 144 mmol/L 07/09/2022 8:15 PM CDT PH LABORATORY Potassium 5.2 3.4 - 5.3 mmol/L 07/09/2022 8:15 PM CDT PH LABORATORY Chloride 110(H) 94 - 109 mmol/L 07/09/2022 8:15 PM CDT PH LABORATORY Carbon Dioxide (CO2) 27 20 - 32 mmol/L 07/09/2022 8:15 PM CDT PH LAB[facility]AT[facility] Anion Gap 3 3 - 14 mmol/L 07/09/2022 8:15 PM CDT PH LAB[facility] Urea Nitrogen 28 7 - 30 mg/dL 07/09/2022 8:15 PM CDT PH LAB[facility]ORY Creatinine 1.50(H) 0.52 - 1.04 mg/dL 07/09/2022 8:15 PM CDT PH LAB[facility]ORY Calcium 8.4(L) 8.5 - 10.1 mg/dL 07/09/2022 8:15 PM CDT PH [facility] Glucose 178(H) 70 - 99 mg/dL 07/09/2022 8:15 PM CDT PH LAB[facility]ATORY Alkaline Phosphatase 99 40 - 150 U/L 07/09/2022 8:15 PM CDT PH LAB[facility] AST 13 0 - 45 U/L 07/09/2022 8:15 PM CDT PH LAB[facility]ORY ALT 14 0 - 50 U/L 07/09/2022 8:15 PM CDT PH LAB[facility]ATORY Protein Total 6.3(L) 6.8 - 8.8 g/dL 07/09/2022 8:15 PM CDT PH LAB[facility]ATORY Albumin 2.3(L) 3.4 - 5.0 g/dL 07/09/2022 8:15 PM CDT PH LAB[facility]ORY Bilirubin Total 0.3 0.2 - 1.3 mg/dL 07/09/2022 8:15 PM CDT PH LAB[facility]ATORY GFR Estimate 34(L) >60 mL/min/1.7 3m2 07/09/2022 8:15 PM CDT PH LABORATORY Comment:Effective October 092020 eGFRcr in adults is calculated using the 2020 CKD-EPI creatinine equation which includes age and gender (Jose carter al., NEJM, DOI: 10.1056/QXENdm5464384) Blood STRUCTURE OF LEFT UPPER LIMB / Unknown VAD(CVC, PICC) / Unknown 07/09/2022 7:37 PM CDT 07/09/2022 7:52 PM CDT Palmira Gil MD LAB - BLOOD ORDERAB LES Final Result PH LABORATORY [facility] [address] [facility] Lab (Main level, no room number) [place] [address], [facility] [phone] * (ABNORMAL) UA with Microscopic reflex to Culture (07/03/2022 9:46 PM CDT) Color Urine Yellow Colorless, Straw, Light Yellow, Yellow 07/03/2022 10:12 PM CDT PH LAB[facility]ATORY Appearance Urine Slightly Cloudy(A) Clear 07/03/2022 10:12 PM CDT PH LAB[facility]ORY Glucose Urine >=1000(A) Negative mg/dL 07/03/2022 10:12 PM CDT PH LAB[facility]ATORY Bilirubin Urine Negative Negative 10:12 PM CDT PH LAB[facility]ATORY Ketones Urine 15(A) Negative mg/dL 07/03/2022 10:12 PM CDT PH LABORATORY Specific [place] Urine <=1.005 1.003 - 1.035 07/03/2022 10:12 PM CDT PH LABORATORY Blood Urine Large(A) Negative 07/03/2022 10:12 PM CDT PH LAB[facility]ATORY pH Urine 6.5 5.0 - 7.0 07/03/2022 10:12 PM CDT PH [facility] Protein Albumin Urine Trace(A) Negative mg/dL 07/03/2022 10:12 PM CDT PH LAB[facility] Urobilinogen Urine Normal Normal, 2.0 mg/dL 07/03/2022 10:12 PM CDT PH LAB[facility] Nitrite Urine Negative Negative 07/03/2022 10:12 PM CDT PH [facility] Leukocyte Esterase Urine Small(A) Negative 07/03/2022 10:12 PM CDT PH [facility] Bacteria Urine Few(A) None Seen /HPF 07/03/2022 10:12 PM CDT PH LAB[facility] RBC Urine 67(H) <=2 /HPF 07/03/2022 10:12 PM CDT PH [facility]ORY WBC Urine 81(H) <=5 /HPF 07/03/2022 10:12 PM CDT PH LAB[facility] Squamous Epithelials Urine 7(H) <=1 /HPF 07/03/2022 10:12 PM CDT PH LAB[facility]ORY Urine URINE SPECIMEN OBTAINED BY CLEAN CATCH PROCEDURE / Unknown Non-blood Collection / Unknown 07/03/2022 9:46 PM CDT 07/03/2022 9:52 PM CDT Narrative PH LABORATORY - 07/03/2022 10:12 PM CDT Urine Culture ordered based on laboratory criteria us Aryan Whyte MD LAB - URINE ORDERABLES F inal Result PH LABORATORY [facility] [address] Lab (Main level, no room number) [place] [address], [facility] [phone] * PHQ-9 DEPRESSION SCREENING ORDER (06/04/2022) PHQ9 SCORE 10 Narrative Elicia Sandoval - 06/04/2022 [facility] Progress Note us Provider Outside OTHER Final Result * (ABNORMAL) Albumin Random Urine Quantitative with Creat Ratio (05/28/2022 6:04 PM CDT) Creatinine Urine mg/dL 93 mg/dL 05/28/2022 8:58 PM CDT PH LAB[facility]ORY Albumin Urine mg/L 233 mg/L 05/28/2022 8:58 PM CDT PH LAB[facility]ORY Albumin Urine mg/g Cr 250.54(H) 0.00 - 25.00 mg/g Cr 05/28/2022 8:58 PM CDT PH LAB[facility]ATORY Urine URINE SPECIMEN OBTAINED BY CLEAN CATCH PROCEDURE / Unknown Non-blood Collection / Unknown 05/28/2022 6:04 PM CDT 05/28/2022 6:04 PM CDT us Chu Cruz PA-C LAB - URINE ORDERABLES Final Result PH LABORATORY [facility] [address] Lab (Main level, no room number) [place] [address], [facility] [phone] * TSH with free T4 reflex (02/29/2020 1:32 PM CDT) TSH 0.68 0.40 - 4.00 mU/L 02/29/2020 2:10 PM CDT [facility] Blood specimen (specimen) 02/29/2020 1:32 PM CDT 02/29/2020 1:33 PM CDT us Chu Cruz PA-C LAB - BLOOD ORDERABLES Final Result [facility] [address] [place] [address], [facility] [phone] * DX Hip/Pelvis/Spine (03/27/2019 2:20 PM CDT) Anatomical Region Laterality Modality Dexa Bone Mineral Den sity Impressions 03/27/2019 3:22 PM CDT IMPRESSION: Osteopenia measured at the left forearm, and bilateral hips. JOHNNY SOTO MD Narrative 03/27/2019 3:22 PM CDT DXA BONE MINERAL DENSITY SCAN March 27, 2019 2:20 PM INDICATION: 83-year-old female. Postmenopausal. No hormone replacement therapy. No medications listed. TECHNIQUE: The left forearm and hips were scanned with DXA technique performed using a [employer] scanner. DXA results are reported according to T-score. The T-score is the standard deviation from the peak bone mass in a normal young adult patient. A T-score of -1.0 to -2.5 correlates with osteopenia. A T-score of less than -2.5 correlates with osteoporosis. In accordance with the ISCD (International Society for Clinical Densitometry), the lowest BMD between the total hip and femoral neck will be reported. COMPARISON: None. FINDINGS: Left forearm: The T-score of the middle third is -2.2. This corresponds to osteopenia. Hips: The right hip T-score is -1.7. The left hip T-score is -2.0. Bone mineral density in the worst total hip is 0.754 gm/cm2. This corresponds to bilateral osteopenia. Procedure Note Johnny Soto MD - 03/27/2019 DXA BONE MINERAL DENSITY SCAN March 27, 2019 2:20 PM INDICATION: 83-year-old female. Postmenopausal. No hormone replacement therapy. No medications listed. TECHNIQUE: The left forearm and hips were scanned with DXA technique performed using a [employer] scanner. DXA results are reported according to T-score. The T-score is the standard deviation from the peak bone mass in a normal young adult patient. A T-score of -1.0 to -2.5 correlates with osteopenia. A T-score of less than -2.5 correlates with osteoporosis. In accordance with the ISCD (International Society for Clinical Densitometry), the lowest BMD between the total hip and femoral neck will be reported. COMPARISON: None. FINDINGS: Left forearm: The T-score of the middle third is -2.2. This corresponds to osteopenia. Hips: The right hip T-score is -1.7. The left hip T-score is -2.0. Bone mineral density in the worst total hip is 0.754 gm/cm2. This corresponds to bilateral osteopenia. IMPRESSION: Osteopenia measured at the left forearm, and bilateral hips. JOHNNY SOTO MD Chu Cruz PA-C IMG DEXA ORDERABLES Fin al Result * Eye Exam - HIM Scan (03/23/2017) Li Ana Lilia Mir - 03/23/2017 VITREORETINAL SURGERY - PROGRESS NOTE us Provider Outside OTHER Final Result * (ABNORMAL) Drug abuse screen, urine (Pain Care Package) (06/26/2016 10:29 AM CDT) Methamphetamine Qual Urine Negative Cutoff for a negative methamphetamine is 1000 ng/mL or less. [facility] Cocaine Qual Urine Negative Cutoff for a negative cocaine is 300 ng/mL or less. [facility] Cannabinoids Qual Urine Negative Cutoff for a negative cannabinoid is 50 ng/mL or less. [facility] MDMA Qual Urine Negative Cutoff for a negative MDMA (ecstasy) is 500 ng/mL or less. [facility] Methadone Qual Urine Negative Cutoff for a negative methadone is 300 ng/mL or less. [facility] Opiates Qualitative Urine Positive Cutoff for a positive opiate is greater than 300 ng/mL. This is an unconfirmed screening result to be used for medical purposes only. (A) [facility] Benzodiazepine Qual Urine Negative Cutoff for a negative benzodiazepine is 300 ng/mL or less. [facility] Tricyc Anti Qual Urine Negative Cutoff for a negative tricyclic antidepressant is 1000 ng/mL or less. [facility] Barbiturates Qual Urine Negative Cutoff for a negative barbituate is 300 ng/mL or less. [facility] PCP Qual Urine Negative Cutoff for a negative PCP is 25 ng/mL or less. [facility] Amphetamine Qual Urine Negative Cutoff for a negative amphetamine is 1000 ng/mL or less. [facility] Oxycodone Qual Urine Negative Cutoff for a negative Oxycodone is 100 ng/mL or less. [facility] Urine specimen (specimen) 06/26/2016 10:29 AM CDT 06/26/2016 10:30 AM CDT Chu Cruz PA-C LAB - URINE ORDERABLES Final Result [facility] [address] [place] [address], [facility] [phone] from Last 3 Months or Most Recently Relevant to Health Maintenance Insurance [facility] [place] [facility] [employer] [employer] [place] [employer] [employer] INSURANCE Advance Directives For more information, please contact: [phone] * No CPR- Do NOT Intubate (Latest Code Status on File) Date Activated Date Inactivated Comments 07/03/2022 11:51 PM 07/22/2022 1:58 PM NO basic or advanced life-sustaining interventions are performed Question Answer Comments Code status determined by: Discussion with patie nt/ legal decision maker * Full Code Date Activated Date Inactivated Comments 07/03/2022 10:21 PM 07/03/2022 11:51 PM All basic and advanced life-sustaining interventions are performed as appropriate Question Answer Comments Code status determined by: Unable to det ermine; FULL CODE until documents or legal decision maker available * No CPR- Do NOT Intubate Date Activated Date Inactivated Comments 02/25/2022 4:53 AM 02/27/2022 7:24 PM NO basic or advanced life-sustaining interventions are performed Question Answer Comments Code status determined by: Discussion with patie nt/ legal decision maker * No CPR- Do NOT Intubate Date Activated Date Inactivated Comments 06/10/2020 4:49 PM 06/13/2020 3:45 PM NO basic or ad vanced life-sustaining interventions are performed Question Answer Comments Code status determined by: Discussion with patie nt/ legal decision maker * DNR/DNI Date Activated Date Inactivated Comments 12/20/2018 8:16 PM 12/21/2018 7:43 PM Question Answer Comments Code status determined by: Discussion with patie nt/legal decision maker Care Teams Gun Barrel Finisher Relationship Specialty Start Date End Date Chu Cruz PA-C [address] [facility] [address] [place] [address] PCP - General Physician Molded Grid And Parts Inspector 07/07/17 Minna Chawla RN [address] [place] [address] Quote Clerk Diabetes Education 06/30/18 Minna Chawla RN [address] [place] [address] Quote Clerk Diabetes Education 06/30/18 Chu Cruz PA-C [address] [place] [address] Assigned PCP 11/14/17 Aruna Mart [address] [place] [address] Quote Clerk 01/16/22 Clem Maynard MD [address] [place] [phone] Cardiovascular Disease 01/07/23
--- OUTSIDE RECORDS SUMMARY | 2024-12-22 16:00 | XMS_ITS | Encounter Summary ---
Author Organization Brothers Address [facility] [place] [address] Care Team Providers Care Finishing And Shipping Supervisor Name Role Phone Chu Cruz PA-C Primary Care Provider Minna Chawla RN Unavailable Unavailable Minna Chawla RN Unavailable Unavailable Chu Cruz PA-C Unavailable Dario Potter MD Unavailable [phone] Luis Miguel Woodson MD Unavailable Unavailable Daisy Mejia NP Unavailable Aruna Mart Unavailable Chris Ricketts DPM Unavailable Chris Ricketts DPM Unavailable Clem Maynard MD Unavailable [phone] Clem Maynard MD Unavailable [phone] Reason for Visit * Reason Onset Date Comments requesting orders 03/03/2021 Encounter Details Date Type Department Care Team (Late st Contact Info) Description 03/03/2021 [facility] [address] [facility] [address] [place] [address] Chu Cruz PA-C [address] [place] [address] requesting orders Social History Tobacco Use Types Packs/Day Years Used Date Smoking Tobacco: Former Smokeless Tobacco: Never Comments:only 6 months use Alcohol Use Standard Drinks/Week Comments Yes 0 (1 standard drink = 0.6 oz pur e alcohol) rarely PHQ-2 Answer Date Recorded PHQ-2 Score 3 02/26/2021 Comments No Sex and Gender Information Value Date Recorded Sex Assigned at Female 01/14/2021 7:41 PM SECTION HAND HELPER Legal Sex Female 6:11 PM CDT Gender Identity Female 01/14/2021 7:41 PM SECTION HAND HELPER Sexual Orientation Straight 01/14/2021 7: 41 PM SECTION HAND HELPER COVID-19 Exposure Response Date Recorded In the last month, have you been in contact with someone who was confirmed or suspected to have Coronavirus / COVID-19? No / Unsure 02/27/2021 4:12 PM CDT documented as of this encounter Miscellaneous Notes * Telephone Encounter - Chu Cruz PA-C - 03/04/2021 4:21 PM CDT Agree with plan. Chu Cruz PA-C * Telephone Encounter - Janelle Vides - 03/03/2021 7:06 PM CDT [facility] Care [facility] now requests orders and shares plan of care/discharge summaries for some patients through [facility]. Please REPLY TO THIS MESSAGE OR ROUTE BACK TO THE AUTHOR in order to give authorization for orders when needed. This is considered a verbal order, you will still receive a faxedcopy of orders for signature. Thank you for your assistance in improving collaboration for our patients. ORDER PT to see pt in home 1X/wk times 1 wk, 2X/wk times 2 wks for back pain, hip pain and strengthening. DIP TANKER 1X/wk times 3 wks OT eval SW assessment documented in this encounter Plan of Treatment [...] documented as of this encounter Care Teams Finishing And Shipping Supervisor Relationship Specialty Start Date End Date Chu Cruz PA-C [address] [facility] [address] [place] [address] PCP - General Physician Dye House Vat Worker 07/07/17 Minna Chawla, RN [address] [address] Lacquer Dipping Machine Operator Diabetes Education 06/30/18 Minna Chawla RN [address] [address] Lacquer Dipping Machine Operator Diabetes Education 06/30/18 Chu Cruz PA-C [address] [address] Assigned PCP 11/14/17 Dario Potter MD [address] [place] [address] Assigned Musculoskeletal Provider 08/30/20 01/10/22 Luis Miguel Woodson MD Assigned Heart and Vascular Provider 08/30/20 06/26/22 Daisy Mejia NP [address] [address] Assigned Neuroscience Provider 09/07/21 03/05/23 Aruna Mart [address] [place] [address] [place] [address] Lacquer Dipping Machine Operator 01/16/22 Chris Ricketts DPM [address] [place] [address] [place] [address] Assigned Musculoskeletal Provider 01/11/22 12/11/22 Chris Ricketts DPM [address] [place] [address] [address] [place], [place] [address] Assigned Surgical Provider 12/12/22 02/28/24 Clem Maynard MD [address] [place] [phone] Cardiovascular Disease 01/07/23 Clem Maynard MD [address] [place] [phone] Assigned Heart and Vascular Provider 01/16/23 07/30/24 documented as of this encounter
--- OUTSIDE RECORDS SUMMARY | 2024-12-22 16:00 | XMS_ITS | Encounter Summary ---
Author Organization [facility] Address [address] [place] [address] Care Team Providers Care Key Account Coordinator Name Role Phone Chu Cruz PA-C Primary Care Provider Minna Chawla RN Unavailable Unavailable Minna Chawla RN Unavailable Unavailable Chu Cruz PA-C Unavailable Lisa Riggs RN Unavailable [phone] Dario Potter MD Unavailable Luis Miguel Woodson MD Unavailable Unavailable Matheus Medina MD Unavailable Daisy Mejia MACHINE CEMENTER Unavailable Aruna Mart Unavailable Chris Ricketts DPM Unavailable [phone] Chris Ricketts DPM Unavailable [phone] Clem Maynard MD Unavailable [phone] Clem Maynard MD Unavailable [phone] Reason for Visit * Reason Comments Home Care/Hospice Encounter Details Date Type Department Care Team (Late st Contact Info) Description 08/03/2019 Documentation Only [address] [place] [id number] Chu Cruz PA-C [address] [address] Home Care/Hospice Social History Tobacco Use Types Packs/Day Years Used Date Smoking Tobacco: Former Smokeless Tobacco: Never Comments:only 6 months use Alcohol Use Standard Drinks/Week Comments Yes 0 (1 standard drink = 0.6 oz pur e alcohol) rarely PHQ-2 Answer Date Recorded PHQ-2 Score 2 01/26/2019 Comments No Sex and Gender Information Value Date Recorded Sex Assigned at Female 01/14/2021 7:41 PM NIGHT WAREHOUSE SELECTOR Legal Sex Female 6:11 PM CDT Gender Identity Female 01/14/2021 7:41 PM NIGHT WAREHOUSE SELECTOR Sexual Orientation Straight 01/14/2021 7: 41 PM NIGHT WAREHOUSE SELECTOR documented as of this encounter Progress Notes * Leti Traylor MD - 08/03/2019 10:16 PM CDT JM pt. I would recommend her to go down on her NPH insulin to 28 units and the night time NPH dose to 24 units Continue premeal insulin (regular insulin)with out any changes. Advise a visit to discuss med changes in 1-2 weeks documented in this encounter Plan of Treatment Not on file documented as of this encounter Visit Diagnoses Not on filedocumented in this encounter Additional Health Concerns Infection Onset Date Last Indicated Resolved Time Rule Out COVID-19 09/26/2020 09/26/2020 09/27/2020 5:31 PM NIGHT WAREHOUSE SELECTOR Rule Out COVID-19 05/28/2022 05/28/2022 05/28/2022 8:56 PM CDT Rule Out COVID-19 07/03/2022 07/03/2022 07/03/2022 6:55 PM CDT Assessment Noted Time PHQ-9 Depression Total Score: 3 01/28/20 7:06 AM CDT documented as of this encounter Care Teams Key Account Coordinator Relationship Specialty Start Date End Date Chu Cruz PA-C [address] [address] PCP - General Physician Director Of Brand Marketing 07/07/17 Minna Chawla, RN 290 [facility] [address] [place] [address] Ammonia Print Operator Diabetes Education 06/30/18 Minna Chawla RN 290 [facility] [address] [place] [address] Ammonia Print Operator Diabetes Education 06/30/18 Chu Cruz PA-C 290 [facility] [address] [place] [address] Assigned PCP 11/14/17 Lisa Riggs RN Clinic Encoding Clerk Primary Care - CC 06/14/2006/16 Dario Potter MD [address] [place] [address] Assigned Musculoskeletal Provider 08/30/20 01/10/22 Luis Miguel Woodson MD Assigned Heart and Vascular Provider 08/30/20 06/26/22 Matheus Medina MD [address] [place] [address] [address] Assigned Surgical Provider 08/30/20 11/30/20 Daisy Mejia NP [address] [facility] [address] [place], [place] [id number] Assigned Neuroscience Provider 09/07/21 03/05/23 Aruna Mart [address] [place] [address] Ammonia Print Operator 01/16/22 Chris Ricketts DPM [address] [facility] [place] [address] Assigned Musculoskeletal Provider 01/11/22 12/11/22 Chris Ricketts DPM [address] [facility] [place] [address] Assigned Surgical Provider 12/12/22 02/28/24 Clem Maynard MD [address] [place] [phone] Cardiovascular Disease 01/07/23 Clem Maynard MD [address] [place] [phone] Assigned Heart and Vascular Provider 01/16/23 07/30/24 documented as of this encounter
--- OUTSIDE RECORDS SUMMARY | 2024-12-22 16:01 | XMS_ITS | Encounter Summary ---
Author Organization [facility] Address [address] [place] [address] Care Team Providers Care Shaper Machine Hand Name Role Phone Unavailable Primary Care Provider Unavailabl e Reason for Visit * Reason Comments Routine Long-Term Visit SNF admission * Appointment Request (Routine) - Closed Specialty Diagnoses / Procedures Referred By Kiera corral Referred To Contact [facility] Facility Referral ID Status Reason Start Date Expiration Date Visits Re quested Visits Authorized [id number] Closed 11/07/2024 11/07/2025 1 1 Encounter Details Date Type Department Care Team (Latest Contact Info) Description 11/10/2024 10:00 AM CARPENTRY PROFESSIONAL External Outreach [facility] in [facility] [address] [place] [phone] Sheryl Adame M.D. [address] [place] [phone] Fracture Pubis Subsequent With Routine Healing Left (Primary Dx); Atrial Fibrillation Longstanding Persistent (HCC); Diabetes Mellitus Type 2 (HCC); Chronic Kidney Disease (CKD), Stage 3 Unspecified (HCC); Fracture Sacrum Closed Subsequent; Pacemaker Cardiac Status Post; History Of Falling; Residential Current Use Of Injectable Non-Insulin Antidiabetic Drugs; Residential Current Use Of Oral Hypoglycemic Drugs; Residential Use Of Insulin Active (HCC); Residential (Current) Anticoagulant Treatment Social History Tobacco Use Types Packs/Day Years Used Date Smoking Tobacco: Never Smokeless Tobacco: Never Tobacco Cessation:Counseling Given: Not Answered Alcohol Use Standard Drinks/Week Comments Not Currently 0 (1 standard drink = 0.6 oz pur e alcohol) [facility] Utilities Answer Date Recorded In the past [address] [facility] [employer], oil, or [employer] threatened to shut off services in your home? No 10/30/2024 Humiliation, Afraid, Rape, and Kick questionnair e Answer Date Recorded Within the last year, have y ou been afraid of your partner or ex-partner? No 10/30/2024 Within the last year, have y ou been humiliated or emotionally abused in other ways by your partner or ex-partner? No Within the last year, have y ou been kicked, hit, slapped, or otherwise physically hurt by your partner or ex-partner? No 10/30/2024 Within the last year, have y ou been raped or forced to have any kind of sexual activity by your partner or ex-partner? No 10/30/2024 Hunger Vital Sign Answer Date Recorded Within the past 12 months, y ou worried that your food would run out before you got the money to buy more. Never true 10/30/20 24 Within the past 12 months, t he food you bought just didn't last and you didn't have money to get more. Never true 10/30/2024 PRAPARE - Transportation Answer Date Re corded In the past 12 months, has l ack of transportation kept you from medical appointments or from getting medications? No 10/09 In the past 12 months, has l ack of transportation kept you from meetings, work, or from getting things needed for daily living? No 10/30/2024 Dental Answer Date Recorded Dental: Regular Dentist Unknown 01/25/20 Housing Stability Answer Date Recorded What is your living situation today? I have a [facility] place to live 10/30/2024 Comments Unknown Sex and Gender Information Value Date Recorded Sex Assigned at Not on file Legal Sex Female 6:45 PM CDT Gender Identity Not on file Sexual Orientation Not on file documented as of this encounter Last Filed Vital Signs Vital Sign Reading Time Taken Comments Blood Pressure 135/63 11/10/2024 7:30 AM CARPENTRY PROFESSIONAL Pulse 61 11/10/2024 7:30 AM CARPENTRY PROFESSIONAL Temperature 36.6 C (97.8 F) 11/10/2024 7:30 AM CARPENTRY PROFESSIONAL Respiratory Rate 18 11/10/2024 7:30 AM CARPENTRY PROFESSIONAL Oxygen Saturation 96% 11/10/2024 7:30 AM CARPENTRY PROFESSIONAL Inhaled Oxygen Concentration - - Weight 90.7 kg (200 lb) 11/10/2024 7:30 AM CARPENTRY PROFESSIONAL Height - - Body Mass Index 33.32 10/31/2024 12:43 PM CARPENTRY PROFESSIONAL documented in this encounter Progress Notes * Alexa Fung, L.P.N. - 11/10/2024 3:00 PM CST Images from the original note were not included. SNF VISIT New Admission visit New Admission to the facility. Recent Hospital admission: Yes,This resident was recently hospitalized at: [facility] Date of hospitalization: 10/30-11/07/24 Reason for hospitalization: Fracture Sacrum Closed Initial Medication changes: DNR Most recent labs: Lab Results Component Value Date WBC 6.1 11/07/2024 HGB 11.1 (L) 11/07/2024 HCT 34.4 (L) 11/07/2024 MCV 88.7 11/07/2024 PLT 205 11/07/2024 Lab Results Component Value Date NA 139 11/07/2024 KSERUM 4.8 11/07/2024 KBLOOD 5.1 01/19/2024 KPLASMA 4.7 10/30/2024 CL 103 11/07/2024 BICARB 25 11/07/2024 CREATININE 1.81 (H) 11/07/2024 CREATPOC 1.6 (H) 10/30/2024 EGFRNONBLKAA 33 (L) 11/06/2021 EGFRBLKAA 39 (L) 11/06/2021 BUN 59 (H) 11/07/2024 ANIONGAP 11 11/07/2024 GLUCOSE 179 (H) 11/07/2024 GLUCOSEPOC 182 (H) 11/07/2024 CALCIUM 9.1 11/07/2024 Lab Results Component Value Date ALT 22 01/24/2023 AST 22 01/19/2024 ALKPHOS 99 01/24/2023 BILITOT 0.8 01/19/2024 SNF Nurse concerns: Should she be taking Jardiance and furosemide? DNR Future Appointments 11/10/2024 Sheryl Grace M.D.; HEATHER Peralta [facility] in [facility] [address] 12/21/2024 9:30 AM DX MICHAEL RM [address] Department of Radiology, [facility], in [place], [place] 12/21/2024 10:00 AM END FRAGILITY FRACTURE PROVIDER CORBIN Division of Endocrinology in [place], [place] 12/21/2024 10:30 AM Cindy Rodriguez MPAS, PNavdeepA.-C. Department of Orthopedic Surgery in [place], [place] ENTRY PROFESSIONAL documented in this encounter H&P Notes * Sheryl Wan M.D. - 11/10/2024 10:00 AM CST CHIEF COMPLAINT / REASON FOR VISIT [facility] Admission Visit Visit Type: In Person: Face to Face Living situation prior to admission: Apartment in [facility]. Two children in [place]. 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 Primary care provider: [facility] in [place] SUBJECTIVE HISTORY OF PRESENT ILLNESS Today's narrative history (obtained from Patient and Nursing): Hayde Fong was admitted to [facility] on 11/07/2024 from [facility]. Patient was admitted there on 10/30/2024 after fall at home. Found to have mildly displaced acute left pelvis/sacrum fractures with intramuscular hematomas. Non operative management was recommended and she was admitted for therapies and pain management. Hospital course was complicated by: Acute kidney injury with creatinine increased to 2.06 from baseline of 1.5. This was felt secondaryto urine retention, urine infection, venous congestion, prerenal. Urine retention Urine infection treated with cefdinir Chronic opiate use with opioid induced constipation The past medical history is significant for chronic kidney disease, atrial fibrillation, hyperlipidemia, diabetes. Since admission to [facility], she has been working with therapies with goal to return home.. Diagnosis Overview 1. Atrial Fibrillation Longstanding Persistent (HCC) 2. Chronic Kidney Disease (CKD), Stage 3 Unspecified (HCC) Hospitalization October 2024 Acute on chronic kidney injury with creatinine increased to 2.06 from baseline of 1.5. This was felt secondary to urine retention, urine infection, venous congestion, prerenal. 3. Diabetes Mellitus Type 2 (HCC) 4. Fracture Pubis Subsequent With Routine Healing Left - Primary Hospitalized 10/30 until 11/07/2024 with mildly displaced acute comminuted fracture of the left pubic symphysis and adjacent pubic rami. Small-volume adjacent blood products and intramuscular hematomas. 5. Fracture Sacrum Closed Subsequent Comminuted fracture of the left pubic symphysis and adjacent pubic rami. Small- volume adjacent blood products and intramuscular hematomas. Mildly displaced fracture of the left sacral ala. 6. History Of Falling Fall 10/30/2024 resulting in sacrum and pubis fractures. 7. Business Process Specialist (Current) Anticoagulant Treatment On apixaban in the setting of atrial fibrillation. 8. Residential Use Of Insulin Active ([facility]) 9. Pacemaker Cardiac Status Post Past medical/surgical history, social history, medications, and allergies were reviewed and are visible in the Encounter view. Review of systems was performed, as allowable by patient's cognitive status, and incorporating collateral history if applicable. Relevant positives are noted elsewhere in this note, otherwise negative. Code status: DNR Diet: Regular diet, regular texture, regular consistency Activity: Physical therapy, occupational therapy Ambulation: Walks with therapies ADLs: Setup assist feeding. Partial assist dressing. Assistance provided bathing. Transfer: Assist of 1 with Dunia Monge Recent Falls: Prior to admission Medication list reviewed and updated: yes Medication Concerns: Furosemide and empagliflozin on hold Cognition: BIMS 15 Skin: Bruising on upper and lower extremities. Bladder: Occasionally incontinent Bowel: Continent OBJECTIVE BP 135/63 Pulse 61 Temp 36.6 ??C Resp 18 Wt 90.7 kg SpO2 96% BMI 33.32 kg/m?? PHYSICAL EXAM GENERAL: Patient is alert and oriented. Patient is a good historian. HEART: Regular rate and rhythm. LUNGS: Clear without wheeze crackle or rhonchus. ABDOMEN: Normal bowel sounds. EXTREMITIES: Normal without edema. SKIN: No rashes or unusual lesions on exposed skin. ASSESSMENT / PLAN The following medical problems were actively reviewed (including updating overview sections as necessary) and addressed as part of today's visit: Full background details regarding problems addressed at today's visit can be found in the HPI. Pertinent changes to the care plan based on today's evaluation are explicitly discussed below, otherwiselisted problems are stable and present management will be continued. ASSESSMENT/ PLAN Atrial Fibrillation Longstanding Persistent (HCC) Continue metoprolol and apixaban. Diabetes Mellitus Type 2 (HCC) Most recent A1c 8.8. On short-acting, long-acting insulins and dapagliflozin as therapeutic interchange for empagliflozin. Blood sugars checked 4 times daily. Generally in the 1 to 200s. Chronic Kidney Disease (CKD), Stage 3 Unspecified (HCC) Most recent GFR 27. Creatinine downtrending. Fracture Pubis Subsequent With Routine Healing Left Pain management with acetaminophen, oxycodone, pregabalin. She is working with therapies. Fracture Sacrum Closed Subsequent Discharged to [facility]. Acetaminophen, pregabalin, and oxycodone for pain control.Apixaban continued. Pacemaker Cardiac Status Post Most recent pacemaker interrogation visible In Epic from 2022. She does get her care through [facility]. History Of Falling She is working with therapies to improve strength, stamina, balance. Business Process Specialist Current Use Of Injectable Non-Insulin Antidiabetic Drugs Residential Current Use Of Oral Hypoglycemic Drugs Business Process Specialist Use Of Insulin Active (HCC) Residential (Current) Anticoagulant Treatment Continue apixaban. Disposition Planning This is a planned short-term alf stay for rehabilitation. Patient plans to return to previous living situation at the completion of therapies. Long-Term Stay Justification Exam Current comorbidities, ADL need/level of debility requires skilled care/therapy. Medications and labs all reviewed and appropriate related to comorbidities, unless otherwise indicated. Physician order sheet signed. Continue physical therapy, occupational therapy, nutrition intervention, skin protection, and fall prevention. PATIENT EDUCATION Ready to learn, no apparent learning barriers were identified; learning preferences include listening. Explained diagnosis and treatment plan; patient/child/caregiver expressed understanding of the content. BILLING Billing based on: Time, including the following tasks: reviewing the electronic medical record, updating the EPIC Problem List, reviewing written facility- provided information, reviewing information in facility EMR, medication reconciliation, obtaining collateral history from facility staff, Interviewing and examining the patient. Total time 40 minutes. ENTRY PROFESSIONAL documented in this encounter Miscellaneous Notes * ACP (Advance Care Planning) - Sheryl Wan M.D. - 11/10/2024 10:00 AM CST Advance Care Planning Reason for Conversation Alternative Decision Maker: The patient, Hayde Fong, expresses the following preference: Jasmyne George (Daughter) [phone] The patient, Hayde Fong, indicates the following preference: Allow Natural *, No CPR or Mechanical Ventilation will be performed ENTRY PROFESSIONAL * Assessment & Plan Note - Sheryl Wan M.D. - 11/10/2024 10:00 AM CSTAssociated Problem(s): Fracture Sacrum Closed Subsequent Discharged to [facility]. Acetaminophen, pregabalin, and oxycodone for pain control.Apixaban continued. ENTRY PROFESSIONAL ENTRY PROFESSIONAL * Assessment & Plan Note - Sheryl Wan M.D. - 11/10/2024 10:00 AM CSTAssociated Problem(s): Chronic Kidney Disease (CKD), Stage 3 Unspecified (HCC) Most recent GFR 27. Creatinine downtrending. ENTRY PROFESSIONAL ENTRY PROFESSIONAL * Assessment & Plan Note - Sheryl Wan M.D. - 11/10/2024 10:00 AM CSTAssociated Problem(s): Diabetes Mellitus Type 2 (HCC) Most recent A1c 8.8. On short-acting, long-acting insulins and dapagliflozin as therapeutic interchange for empagliflozin. Blood sugars checked 4 times daily. Generally in the 1 to 200s. ENTRY PROFESSIONAL ENTRY PROFESSIONAL * Assessment & Plan Note - Sheryl Wan M.D. - 11/10/2024 10:00 AM CSTAssociated Problem(s): Fracture Pubis Subsequent With Routine Healing Left Pain management with acetaminophen, oxycodone, pregabalin. She is working with therapies. ENTRY PROFESSIONAL ENTRY PROFESSIONAL * Assessment & Plan Note - Sheryl Wan M.D. - 11/10/2024 10:00 AM CSTAssociated Problem(s): Pacemaker Cardiac Status Post Most recent pacemaker interrogation visible In Epic from 2022. She does get her care through [facility]. ENTRY PROFESSIONAL ENTRY PROFESSIONAL * Assessment & Plan Note - Sheryl Wan M.D. - 11/10/2024 10:00 AM CSTAssociated Problem(s): History Of Falling She is working with therapies to improve strength, stamina, balance. ENTRY PROFESSIONAL ENTRY PROFESSIONAL * Assessment & Plan Note - Sheryl Wan M.D. - 11/10/2024 10:00 AM CSTAssociated Problem(s): Atrial Fibrillation Longstanding Persistent (HCC) Continue metoprolol and apixaban. ENTRY PROFESSIONAL ENTRY PROFESSIONAL * Assessment & Plan Note - Sheryl Wan M.D. - 11/10/2024 10:00 AM CSTAssociated Problem(s): Business Process Specialist Use Of Insulin Active (HCC) ENTRY PROFESSIONAL * Assessment & Plan Note - Sheryl Wan M.D. - 11/10/2024 10:00 AM CSTAssociated Problem(s): Business Process Specialist (Current) Anticoagulant Treatment ENTRY PROFESSIONAL * Assessment & Plan Note - Sheryl Wan M.D. - 11/10/2024 10:00 AM CSTAssociated Problem(s): Residential Use Of Insulin Active (HCC) ENTRY PROFESSIONAL * Assessment & Plan Note - Sheryl Wan M.D. - 11/10/2024 10:00 AM CSTAssociated Problem(s): Business Process Specialist (Current) Anticoagulant Treatment Continue apixaban. ENTRY PROFESSIONAL documented in this encounter Plan of Treatment Not on file documented as of this encounter Visit Diagnoses Diagnosis Fracture Pubis Subsequent With Routine Healing Left- Primary Atrial Fibrillation Longstanding Persistent (HCC) Diabetes Mellitus Type 2 (HCC) Chronic Kidney Disease (CKD), Stage 3 Unspecified (HCC) Fracture Sacrum Closed Subsequent Pacemaker Cardiac Status Post History Of Falling Business Process Specialist Current Use Of Injectable Non-Insulin Antidiabetic Drugs Residential Current Use Of Oral Hypoglycemic Drugs Residential Use Of Insulin Active (HCC) Business Process Specialist (Current) Anticoagulant Treatment documented in this encounter
--- OUTSIDE RECORDS SUMMARY | 2024-12-22 16:01 | XMS_ITS | Encounter Summary ---
Author Organization [facility] Address [address] [place] [address] Care Team Providers Care Epic Kaleidoscope Analyst Name Role Phone Maggie Gallardo P.A.-C. Primary Care Provid er Reason for Referral * Outpatient (Routine) - Authorized Specialty Diagnoses / Procedures Referred By Kiera corral Referred To Contact Maggie Gallardo P.A.-C. [address] [place] [address] Phone: tel: fax: [facility] Region Referral ID Status Reason Start Date Expiration Date V isits Requested Visits Authorized [id number] Authorized 12/12/2024 06/13/2026 1 1 Scheduling Instructions Nurse AWV Do not schedule prior to due date to ensure insurance coverage Visit: Medicare Annual Wellness Never done. Encounter Details Date Type Department Care Team (Late st Contact Info) Description 12/12/2024 Orders Only [facility] Maggie Gallardo P.ANavdeep-No [address] [place] [phone] Diabetes Mellitus Type 2 (HCC) Social History Tobacco Use Types Packs/Day Years Used Date Smoking Tobacco: Never Smokeless Tobacco: Never Alcohol Use Standard Drinks/Week Comments Not Currently 0 (1 standard drink = 0.6 oz pur e alcohol) [facility] Utilities Answer Date Recorded In the past 12 months has e electric, gas, oil, or water company threatened to shut off services in your [...] your living situation today? I have a [facility] place to live 10/30/2024 Comments Unknown Sex and Gender Information Value Date Recorded Sex Assigned at Not on file Legal Sex Female 6:45 PM CDT Gender Identity Not on file Sexual Orientation Not on file documented as of this encounter Plan of Treatment Scheduled Orders Name Type Priority Associated Diagnoses Orde r Schedule Albumin, Random, Urine Lab Routine Diabetes Mellitus Type 2 (HCC) Expected: 12/26/2024, Expires: 05/31/2025 Scheduled Referrals Name Type Priority Associated Diagnoses Orde r Schedule Primary Care nurse visit (clinic) - [facility]; Medicare Annual Wellness Outpatient Referral Routine Expected: 01/09/2025, Expires: 05/31/2025 documented as of this encounter Visit Diagnoses Diagnosis Diabetes Mellitus Type 2 (HCC) documented in this encounter Care Teams Epic Kaleidoscope Analyst Relationship Specialty Start Date End Date Maggie Gallardo P.A.-C. [address] [place] [phone] PCP - General Family Medicine 11/14/24 documented as of this encounter
--- OUTSIDE RECORDS SUMMARY | 2024-12-22 16:01 | XMS_ITS | Encounter Summary ---
Author Organization [facility] Address [address] [place] [address] Care Team Providers Care Quantitative Research Analyst Name Role Phone Chu Cruz PA-C Primary Care Provider Minna Chawla RN Unavailable Unavailable Minna Chawla RN Unavailable Unavailable Chu Cruz PA-C Unavailable Luis Miguel Woodson MD Unavailable Unavailable Daisy Mejia INFANT TODDLER LEAD TEACHER Unavailable Aruna Mart Unavailable [phone] Chris Ricketts DPM Unavailable [phone] Chris Ricketts DPM Unavailable Clem Maynard MD Unavailable Clem Maynard MD Unavailable Encounter Details Date Type Department Care Team (Late st Contact Info) Description 06/01/2022 [facility] [address] [facility] [address] [place] [phone] Chu Cruz PA-C [address] [place] [address] Social History Tobacco Use Types Packs/Day Years Used Date Smoking Tobacco: Former Smokeless Tobacco: Never Comments:only 6 months use Alcohol Use Standard Drinks/Week Comments Yes 0 (1 standard drink = 0.6 oz pur e alcohol) rarely PHQ-2 Answer Date Recorded PHQ-2 Score 1 03/26/2022 Comments No Sex and Gender Information Value Date Recorded Sex Assigned at Female 01/14/2021 7:41 PM AUTOMOBILE PARTS ASSEMBLER Legal Sex Female 6:11 PM CDT Gender Identity Female 01/14/2021 7:41 PM AUTOMOBILE PARTS ASSEMBLER Sexual Orientation Straight 01/14/2021 7: 41 PM AUTOMOBILE PARTS ASSEMBLER COVID-19 Exposure Response Date Recorded In the last 10 days, have coleman u been in contact with someone who was confirmed or suspected to have Coronavirus/COVID-19? No / Unsure 05/28/2022 7:14 PM CDT documented as of this encounter Plan of Treatment Not on file documented as of this encounter Visit Diagnoses Not on filedocumented in this encounter Additional Health Concerns Infection Onset Date Last Indicated Resolved Time Rule Out COVID-19 07/03/2022 07/03/2022 07/03/2022 6:55 PM CDT Assessment Noted Time PHQ-9 Depression Total Score: 3 03/26/20 22 8:15 AM CDT documented as of this encounter Care Teams Quantitative Research Analyst Relationship Specialty Start Date End Date Chu Cruz PA-C [address] [address] PCP - General Physician Pulp Mill Supervisor 07/07/17 Minna Chawla RN [address] [address] Jingle Writer Diabetes Education 06/30/18 Minna Chawla RN [address] [address] Jingle Writer Diabetes Education 06/30/18 Chu Cruz PA-C [address] [place] [id number] Assigned PCP 11/14/17 Luis Miguel Woodson MD Assigned Heart and Vascular Provider 08/30/20 06/26/22 Daisy Mejia NP [address] [place] [id number] Assigned Neuroscience Provider 09/07/21 03/05/23 Aruna Mart [address] [place] [address] [place] [address] Jingle Writer 01/16/22 Chris Ricketts DPM [address] [place] [address] [place] [id number] Assigned Musculoskeletal Provider 01/11/22 12/11/22 Chris Ricketts DPM [address] [facility] [place] [id number] Assigned Surgical Provider 12/12/22 02/28/24 Clem Maynard MD [address] [place] [phone] Cardiovascular Disease 01/07/23 Clem Maynard MD [address] [place] [phone] Assigned Heart and Vascular Provider 01/16/23 07/30/24 documented as of this encounter
--- OUTSIDE RECORDS SUMMARY | 2024-12-22 16:01 | XMS_ITS ---
Author Organization [facility] Address [address] [place] [address] [address] [place] [address] Care Team Providers Care Packaging Clerk Name Role Phone Chu Cruz Primary Care Provider Felipe Syed Unavailable [phone] Jerardo Washington Unavailable Unavailable REASON FOR VISIT pain and SCS Encounters Encounter Location Date Provider Diagnosis [facility] [address] [place] [address] [address] [place] [address] 12/11/2024 Felipe Sandoval Plan Of Treatment No Information Progress Notes * Hayde FONG DDOB: [birth year] (89 yo F)Acc No.[id number]:12/11/2024 Patient: Jyotsna Hayde FERNANDEZ :1935 A ge:89 Y S ex:Female Address:[address] [place] [address], [address], [place], [address] * true * Date: Generated for Printi ng/Faxing/eTransmitting on: 0 12/22/2024 04:00 PM WHALE TRAINER
--- OUTSIDE RECORDS SUMMARY | 2024-12-22 16:01 | XMS_ITS | Encounter Summary ---
Author Organization [facility] Address [address] [place] [address] Care Team Providers Care Skip Pit Worker Name Role Phone Unavailable Primary Care Provider Unavailabl e Encounter Details Date Type Department Care Team (Late st Contact Info) Description 11/09/2024 Orders Only [facility] [address] [place] [address] Amelia Quigley, ACCREDITED LEGAL SECRETARY, C.N.P. [address] [place] [address] Social History Tobacco Use Types Packs/Day Years Used Date Smoking Tobacco: Never Smokeless Tobacco: Never Alcohol Use Standard Drinks/Week Comments Not Currently 0 (1 standard drink = 0.6 oz pur e alcohol) [facility] Utilities Answer Date Recorded In the past 12 months has [facility] electric, gas, oil, or water [employer] threatened to shut off services in your [...] your living situation today? I have a [facility] place to live 10/30/2024 Comments Unknown [...]
--- OUTSIDE RECORDS SUMMARY | 2024-12-22 16:01 | XMS_ITS | Encounter Summary ---
Author Organization [facility] Address [address] [place] [address] Care Team Providers Care Estate Manager Name Role Phone Chu Curz PA-C Primary Care Provider Minna Chawla RN Unavailable Unavailable Minna Chawla RN Unavailable Unavailable Chu Cruz PA-C Unavailable [phone] Luis Miguel Woodson MD Unavailable Unavailable Daisy Mejia BIOMASS TECHNICIAN Unavailable Aruna Mart Unavailable [phone] Chris Ricketts DPM Unavailable [phone] Chris Ricketts DPM Unavailable [phone] Clem Maynard MD Unavailable [phone] Clem Maynard MD Unavailable [phone] Encounter Details Date Type Department Care Team (Late st Contact Info) Description 06/03/2022 [facility] [address] [id number] Radha Fung, RN Social History [...] Sex Assigned at Female 01/14/2021 7:41 PM PROPERTY HANDLER Legal Sex Female 6:11 PM CDT Gender Identity Female 01/14/2021 7:41 PM PROPERTY HANDLER Sexual Orientation Straight 01/14/2021 7: 41 PM PROPERTY HANDLER COVID-19 Exposure Response Date Recorded In the [...] documented as of this encounter Care Teams Estate Manager Relationship Specialty Start Date End Date Chu Cruz PA-C [phone] [address] PCP - General Physician Hem Marker 07/07/17 Minna Chawla RN [phone] [address] Liner Checker Diabetes Education 06/30/18 Minna Chawla RN [phone] [address] Liner Checker Diabetes Education 06/30/18 Chu Cruz PA-C [address] [address] Assigned PCP 11/14/17 Luis Miguel Woodson MD Assigned Heart and Vascular Provider 08/30/20 06/26/22 Daisy Mejia NP [address] [place] [address] [place] [address] Assigned Neuroscience Provider 09/07/21 03/05/23 Aruna [address] [facility] [place], [place] [address] Liner Checker 01/16/22 Chris Ricketts DPM 9 [facility] [place], [place] [address] Assigned Musculoskeletal Provider 01/11/22 12/11/22 Chris Ricketts DPM 9 [facility] [place] [address] Assigned Surgical Provider 12/12/22 02/28/24 Clem Maynard MD [address] [place] [id number] Cardiovascular Disease 01/07/23 Clem Maynard MD [address] [place] [id number] Assigned Heart and Vascular Provider 01/16/23 07/30/24 documented as of this encounter
--- OUTSIDE RECORDS SUMMARY | 2024-12-22 16:01 | XMS_ITS | Clinical Summary ---
Author Organization [facility] Address [address] [place] [address] Care Team Providers Care Staff Analyst Name Role Phone Maggie Gallardo P.A.-C. Primary Care Provid er Source Comments Patient records contain information from all sites at [facility]. For routine questions regarding patient records, call [phone] during business hours, M-F 8:00 AM - 5:00 PM Central Time. Record requests for emergency care only can be directed to [phone] at any time.[facility] Allergies Active Allergy Reactions Criticality Noted Date Comments Meperidine Other (see comments) 01/19/2024 unspecified Phenobarbital Hives only, no other systemic symptoms 10/30/2024 Propoxyphene Hives (Reselect Reaction) 06/26/20 16 Medications apixaban (ELIQUIS) 2.5 mg tablet Take 2.5 mg by mouth 2 (two) times a day. 3 Active lubiprostone (AMITIZA) 24 mcg capsule TAKE 1 CAPSULE BY MOUTH TWICE DAILY WITH FOOD FOR 30 DAYS 3 Active metoprolol tartrate (LOPRESSOR) 25 mg tablet TAKE 1/2 (ONE-HALF) TABLET BY MOUTH TWICE DAILY 3 Active omeprazole (PriLOSEC) [address] capsule Take 40 mg by mouth 2 (two) times a day before morning and evening meals. 3 Active sennosides-docu sate sodium (SENOKOT-S) 8.6-50 mg per tablet Take 1 tablet by mouth 2 (two) times a day. 2 Active pregabalin (Lyrica) 50 mg capsule Take 50 mg by mouth at bedtime. Active escitalopram (Lexapro) 5 mg tablet Take 5 mg by mouth daily. Active insulin glargine 100 unit/mL vial Inject 14 Units under the skin every morning. 4 Active insulin aspart U-100 (NovoLOG FlexPen) 100 unit/mL (3 mL) pen Inject 6 Units under the skin 3 (three) times a day with meals. Hold dose if not eating 4 Active empagliflozin (Jardiance) 10 mg tablet Take 1 tablet (10 mg total) by mouth daily before morning meal. Hold until follow up with PCP Active Additional Information Patient not taking.Reported on 11/09/2024 furosemide (Lasix) 40 mg tablet Take 1 tablet (40 mg total) by mouth daily. HOLD UNTIL FOLLOW UP WITH PCP Active Additional Information Patient not taking.Reported on 11/09/2024 diclofenac sodium (Voltaren) 1 % gel Apply 4 g topically 4 (four) times a day. Apply to hip and affected joints up to 4 times daily. 4 Active pregabalin (Lyrica) 25 mg capsule Take 1 capsule (25 mg total) by mouth every morning for 14 days. 14 capsule 4 Active oxyCODONE (Roxicodone) 5 mg immediate release tabletIndicatio ns:Prolonged Acute Pain/Traumatic Injury Take 1 tablet (5 mg total) by mouth every 4 (four) hours as needed for moderate pain or score 4-6 of 10 or severe pain or score 7-10 of 10 Indication: Prolonged Acute Pain/Traumatic Injury. 20 tablet 5 Active polyethylene glycol (Miralax) 17 gram powder packet Take 1 packet (17 g total) by mouth daily. Dissolve each 17 g dose in 240 mLs (8 ounces) of beverage. 4 12/07/19 25 Active Problems Problem Noted Date Diagnosed Date Fracture Pubis Subsequent With Routine Healing L eft 11/24/2024 Overview (11/24/2024): Hospitalized 10/30 until 11/07/2024 with mildly displaced acute comminuted fracture of the left pubic symphysis and adjacent pubic rami. Small-volume adjacent blood products and intramuscular hematomas. Assessment & Plan (11/24/2024 9:16 PM CLAY MIXER): Pain management with acetaminophen, oxycodone, pregabalin. She is working with therapies. Fracture Sacrum Closed Subsequent 11/24/2024 Overview (11/24/2024): Comminuted fracture of the left pubic symphysis and adjacent pubic rami. Small- volume adjacent blood products and intramuscular hematomas. Mildly displaced fracture of the left sacral ala. Assessment & Plan (11/24/2024 9:16 PM CLAY MIXER): Discharged to [facility]. Acetaminophen, pregabalin, and oxycodone for pain control. Apixaban continued. Pacemaker Cardiac Status Post 11/24/2024 Assessment & Plan (11/24/2024 9:16 PM CLAY MIXER): Most recent pacemaker interrogation visible In Epic from 2022. She does get her care through [facility] and [facility]. History Of Falling 11/24/2024 Overview (11/24/2024): Fall 10/30/2024 resulting in sacrum and pubis fractures. Assessment & Plan (11/24/2024 9:16 PM CLAY MIXER): She is working with therapies to improve strength, stamina, balance. Cleaning Specialist Use Of Insulin Active 11/24/2024 Assessment & Plan (11/24/2024 9:16 PM CLAY MIXER): Assessment & Plan (11/24/2024 9:16 PM CLAY MIXER): Cleaning Specialist (Current) Anticoagulant Treatment 11/08 Overview (11/24/2024): On apixaban in the setting of atrial fibrillation. Assessment & Plan (11/24/2024 9:16 PM CLAY MIXER): Assessment & Plan (11/24/2024 9:16 PM CLAY MIXER): Continue apixaban. Fracture Sacrum Closed Initial 10/30/2024 Atrial Fibrillation Longstanding Persistent 10/09 Assessment & Plan (11/24/2024 9:16 PM CLAY MIXER): Continue metoprolol and apixaban. Chronic Kidney Disease (CKD), Stage 3 Unspecifie d 10/30/2024 Overview (11/24/2024): Hospitalization October 2024 Acute on chronic kidney injury with creatinine increased to 2.06 from baseline of 1.5. This was felt secondary to urine retention, urine infection, venous congestion, prerenal. Assessment & Plan (11/24/2024 9:16 PM CLAY MIXER): Most recent GFR 27. Creatinine downtrending. Diabetes Mellitus Type 2 10/30/2024 Assessment & Plan (11/24/2024 9:16 PM CLAY MIXER): Most recent A1c 8.8. On short-acting, long-acting insulins and dapagliflozin as therapeutic interchange for empagliflozin. Blood sugars checked 4 times daily. Generally in the 1 to 200s. Block Atrioventricular Complete 10/30/2024 Hyperlipidemia 10/30/2024 Delirium (not otherwise specified) 01/20/2024 Change Mental Status 01/19/2024 Elevated Troponin 01/19/2024 Pain Chest 01/24/2023 Encounters Date Type Department Care Team Description 12/13/2024 Clinical Communication Department of [facility], in [place], [place] [address] [place] [phone] Maggie Gallardo, P.A.-C. 12/12/2024 Orders Only [facility] PCP [facility] MNT Maggie Gallardo, P.A.-C. Diabetes Mellitus Type 2 (HCC) 12/08/2024 Clinical Communication Department of [facility], in [place], [place] [address] [place] [phone] Sami, MaggieLarry Arreguin Form (Jenifer order [id number]) 11/10/2024 10:00 AM CLAY MIXER External Outreach Senior Services in [facility] [address] [place] [phone] Sheryl Pate M.D. Fracture Pubis Subsequent With Routine Healing Left (Primary Dx); Atrial Fibrillation Longstanding Persistent (HCC); Diabetes Mellitus Type 2 (HCC); Chronic Kidney Disease (CKD), Stage 3 Unspecified (HCC); Fracture Sacrum Closed Subsequent; Pacemaker Cardiac Status Post; History Of Falling; Jail Current Use Of Injectable Non-Insulin Antidiabetic Drugs; Jail Current Use Of Oral Hypoglycemic Drugs; Cleaning Specialist Use Of Insulin Active (HCC); Cleaning Specialist (Current) Anticoagulant Treatment 11/09/2024 Orders Only Senior Services in [facility] [address] [place] [phone] Amelia Quigley, CARAMEL CANDY MAKER HELPER, C.N.P. 11/02/2024 Orders Only Department of Orthopedic Surgery in [place], [place] [address] [place] [phone] Cindy Rodrigeuz MPAS, P.A.-C. Fracture Lumbosacral Spine And Pelvis Closed Initial (HCC) (Primary Dx) 10/31/2024 2:50 PM CLAY MIXER Ancillary Procedure Department of Internal Medicine 10/31/2024 2:45 PM CLAY MIXER Ancillary Procedure Department of Internal Medicine 10/31/2024 2:40 PM CLAY MIXER Ancillary Procedure Department of Internal Medicine 10/30/2024 2:35 PM EST Ancillary Procedure Department of Internal Medicine, [place] 10/30/2024 2:30 PM EST Ancillary Procedure Department of Internal Medicine, [place] 10/30/2024 2:25 PM EST Ancillary Procedure Department of Internal Medicine, [place] 10/30/2024 2:20 PM EST Ancillary Procedure Department of Internal Medicine, [place] 10/30/2024 9:11 AM CLAY MIXER - 11/07/2024 12:30 PM CLAY MIXER Hospital Encounter [facility], [facility], [facility], Third Floor [address] [place] [phone] Tatera, Andrés F, Melanie Allen M.D., M.SDillan Naik M.D. Fracture Sacrum Closed Initial (HCC) (Primary Dx); Fracture Lumbosacral Spine And Pelvis Closed Initial (HCC); Decline Functional Status [R53.81]; Urinary Tract Infection Site Not Specified [facility]charge Disposition: [facility] from Last 3 Months Immunizations Immunization Administration Dates Next Due Influenza high dose QV(65 years or older) (PF) 1 ,08/17/2022 PCV13 08/10/2016 PPSV23 11/17/2017 RSV: respiratory syncytial v irus (AREXVY) recombinant vaccine 08/27/2023 RZV (SHINGRIX) 02/23/2023 SARS-COV-2 (COVID-19) - MODERNA(Discontinued) Tdap 05/16/2021 Social History Tobacco Use Types Packs/Day Years Used Date Smoking Tobacco: Never Smokeless Tobacco: Never Tobacco Cessation:Counseling Given: Not Answered Alcohol Use Standard Drinks/Week Comments Not Currently 0 (1 standard drink = 0.6 oz pur e alcohol) [facility] Utilities Answer Date Recorded In the past 12 months has [facility] [employer], gas, oil, or water [employer] threatened to shut off services in your [...] your living situation today? I have a [facility] place to live 10/30/2024 Comments Unknown Sex and Gender Information Value Date Recorded Sex Assigned at Not on file Legal Sex Female 6:45 PM CDT Gender Identity Not on file Sexual Orientation Not on file Last Filed Vital Signs Vital Sign Reading Time Taken Comments Blood Pressure 135/63 11/10/2024 7:30 AM CLAY MIXER Pulse 61 11/10/2024 7:30 AM CLAY MIXER Temperature 36.6 C (97.8 F) 11/10/2024 7:30 AM CLAY MIXER Respiratory Rate 18 11/10/2024 7:30 AM CLAY MIXER Oxygen Saturation 96% 11/10/2024 7:30 AM CLAY MIXER Inhaled Oxygen Concentration - - Weight 90.7 kg (200 lb) 11/10/2024 7:30 AM CLAY MIXER Height 165 cm (5' 4.96) 10/31/2024 12:43 PM CLAY MIXER Body Mass Index 33.32 10/31/2024 12:43 PM CLAY MIXER Plan of Treatment Health Maintenance Due Date Last Done Comments Diabetic Office Visit with Foot Exam 1936 Dilated Eye Exam 1936 Urine Albumin 1936 Visit: Chronic Disease, age 18+ 1936 Visit: Medicare Annual Wellness 1936 Hepatitis B Vaccines (1 of 3 - Risk 3-dose series) 1996 Zoster Vaccines (2 of 2) 04/20/2023 02/23/2023 Depression Screening (Annual PHQ-2) 11/08/2024 Fall Risk Screen (Annual) 11/08/2024 Hemoglobin A1C 02/20/2025 11/22/2024, 10/09, 01/19/2024, Additional history exists COVID-19 Vaccine ( season) 2025 10/25/2024, 08/27/2023, 10/15/2022, Additional history exists Creatinine Level (Kidney Function Test) 11/07/2025 11/07/2024, 11/06/2024, 11/06/2024, Additional history exists Potassium Level 11/07/2025 11/07/2024, 10/10, 11/06/2024, Additional history exists Sodium Level 11/07/2025 11/07/2024, 10/10, 11/06/2024, Additional history exists DTaP,Tdap,and Td Vaccines (2 - Td or Tdap) 05/16/2031 05/16/2021 Pneumococcal vaccine (50+ years) Completed 11/17/2017, 08/10/2016 RSV vaccine - (32-36 weeks) or 60+ years Completed 08/27/2023 Influenza Vaccine Completed 08/24/2024, , 08/17/2022, Additional history exists IPV Vaccines Aged Out No longer eligi ble based on patient's age to complete this topic Medical Devices Implanted Type Area Doping Supervisor Device Identifier Shelf Expiration Date Model / Serial / Lot Medtronic 4076 Capsurefix Novus Mri Surescan [id number] Implanted:07/2011 (Quantity not on file) Cardiac Lead Medtronic 4076 CAPSUREFIX NOVUS MRI SURESCAN / [id number] / Medtronic 4076 Capsurefix Novus Mri Surescan [id number] Implanted:07/2011 (Quantity not on file) Cardiac Lead Medtronic 4076 CAPSUREFIX NOVUS MRI SURESCAN / [id number] / Medtronic [id number] [place] [address] Rivera [id number] Implanted:12/09 (Quantity not on file) Pacemaker Medtronic [id number] [address]T [address] RIVERA / [id number] / Procedures Procedure Name Priority Date/Time Associated Diagnosis Comments GLUCOSE POCT, B Routine 11/07/2024 11:46 AM CLAY MIXER GLUCOSE POCT, B Routine 11/07/2024 8:58 AM CLAY MIXER CBC WITH DIFFERENTIAL, B Timed 11/07/2024 4:56 AM CLAY MIXER RENAL FUNCTION PANEL, S Timed 11/07/2024 4:56 AM CLAY MIXER GLUCOSE POCT, B Routine 11/06/2024 8:49 PM CLAY MIXER CYSTATIN C WITH EGFR Timed 11/06/2024 5:18 PM CLAY MIXER BASIC METABOLIC PANEL, S/P Timed 11/06/2024 5:18 PM CLAY MIXER GLUCOSE POCT, B Routine 11/06/2024 4:52 PM CLAY MIXER GLUCOSE POCT, B Routine 11/06/2024 12:43 PM CLAY MIXER CYSTATIN C WITH EGFR Timed 11/06/2024 7:59 AM CLAY MIXER BASIC METABOLIC PANEL, S/P Timed 11/06/2024 7:59 AM CLAY MIXER GLUCOSE POCT, B Routine 11/06/2024 7:50 AM CLAY MIXER RENAL FUNCTION PANEL, S Routine 11/05/2024 10:31 PM CLAY MIXER GLUCOSE POCT, B Routine 11/05/2024 9:28 PM CLAY MIXER GLUCOSE POCT, B Routine 11/05/2024 5:45 PM CLAY MIXER BACTERIAL CULTURE, AEROBIC + SUSC, URINE Routine 11/05/2024 4:26 PM CLAY MIXER GLUCOSE POCT, B Routine 11/05/2024 1:52 PM CLAY MIXER MICROSCOPIC MANUAL Routine 11/05/2024 11:55 AM CLAY MIXER DIPSTICK, U Routine 11/05/2024 11:55 AM CLAY MIXER OSMOLALITY, U Routine 11/05/2024 11:55 AM CLAY MIXER PH, U Routine 11/05/2024 11:55 AM CLAY MIXER URINALYSIS WITH MICROSCOPIC Routine 11/05/2024 11:55 AM CLAY MIXER US KIDNEYS BILATERAL WITH BLADDER RAD - Timed (for specific dates/times) 11/05/2024 8:36 AM CLAY MIXER GLUCOSE POCT, B Routine 11/05/2024 7:59 AM CLAY MIXER CBC WITH DIFFERENTIAL, B Timed 11/05/2024 7:13 AM CLAY MIXER CREATINE KINASE (CK), S Timed 11/05/2024 7:13 AM CLAY MIXER CYSTATIN C WITH EGFR Timed 11/05/2024 7:13 AM CLAY MIXER MAGNESIUM, S Timed 11/05/2024 7:13 AM CLAY MIXER PHOSPHORUS (INORGANIC), S Timed 11/05/2024 7:13 AM CLAY MIXER BASIC METABOLIC PANEL, S/P Timed 11/05/2024 7:13 AM CLAY MIXER BASIC METABOLIC PANEL, S/P Routine 11/04/2024 10:43 PM CLAY MIXER GLUCOSE POCT, B Routine 11/04/2024 9:58 PM CLAY MIXER GLUCOSE POCT, B Routine 11/04/2024 5:28 PM CLAY MIXER GLUCOSE POCT, B Routine 11/04/2024 1:24 PM CLAY MIXER GLUCOSE POCT, B Routine 11/04/2024 7:35 AM CLAY MIXER BASIC METABOLIC PANEL, S/P Routine 11/03/2024 10:27 PM CLAY MIXER CBC WITH DIFFERENTIAL, B Routine 11/03/2024 10:27 PM CLAY MIXER GLUCOSE POCT, B Routine 11/03/2024 9:02 PM CLAY MIXER GLUCOSE POCT, B Routine 11/03/2024 4:59 PM CLAY MIXER GLUCOSE POCT, B Routine 11/03/2024 12:21 PM CLAY MIXER GLUCOSE POCT, B Routine 11/03/2024 9:16 AM CLAY MIXER BASIC METABOLIC PANEL, S/P Routine 11/02/2024 10:14 PM CLAY MIXER CBC WITH DIFFERENTIAL, B Routine 11/02/2024 10:14 PM CLAY MIXER HEMOGLOBIN A1C, B Routine 11/02/2024 10:14 PM CLAY MIXER GLUCOSE POCT, B Routine 11/02/2024 9:58 PM CLAY MIXER GLUCOSE POCT, B Routine 11/02/2024 4:44 PM CLAY MIXER GLUCOSE POCT, B Routine 11/02/2024 2:00 PM CLAY MIXER GLUCOSE POCT, B Routine 11/02/2024 9:12 AM CLAY MIXER BASIC METABOLIC PANEL, S/P Routine 11/01/2024 10:54 PM CLAY MIXER CBC WITH DIFFERENTIAL, B Routine 11/01/2024 10:54 PM CLAY MIXER GLUCOSE POCT, B Routine 11/01/2024 9:27 PM CLAY MIXER GLUCOSE POCT, B Routine 11/01/2024 8:28 PM CLAY MIXER GLUCOSE POCT, B Routine 11/01/2024 7:47 PM CLAY MIXER GLUCOSE POCT, B Routine 11/01/2024 5:30 PM CLAY MIXER GLUCOSE POCT, B Routine 11/01/2024 2:14 PM CLAY MIXER DIPSTICK, U Routine 11/01/2024 9:47 AM CLAY MIXER OSMOLALITY, U Routine 11/01/2024 9:47 AM CLAY MIXER PH, U Routine 11/01/2024 9:47 AM CLAY MIXER MICROSCOPIC AUTOMATED Routine 11/01/2024 9:47 AM CLAY MIXER URINALYSIS WITH MICROSCOPIC Routine 11/01/2024 9:47 AM CLAY MIXER GLUCOSE POCT, B Routine 11/01/2024 7:27 AM CLAY MIXER BASIC METABOLIC PANEL, S/P Routine 10/31/2024 10:31 PM CLAY MIXER CBC WITH DIFFERENTIAL, B Routine 10/31/2024 10:31 PM CLAY MIXER GLUCOSE POCT, B Routine 10/31/2024 8:50 PM CLAY MIXER GLUCOSE POCT, B Routine 10/31/2024 5:50 PM CLAY MIXER INTERNAL MEDICINE IMAGE EXAM Routine 10/31/2024 2:40 PM CLAY MIXER INTERNAL MEDICINE IMAGE EXAM Routine 10/31/2024 2:40 PM CLAY MIXER INTERNAL MEDICINE IMAGE EXAM Routine 10/31/2024 2:40 PM CLAY MIXER GLUCOSE POCT, B Routine 10/31/2024 12:43 PM CLAY MIXER GLUCOSE POCT, B Routine 10/31/2024 8:06 AM CLAY MIXER CBC WITH DIFFERENTIAL, B Routine 10/30/2024 10:26 PM CLAY MIXER GLUCOSE POCT, B Routine 10/30/2024 9:22 PM CLAY MIXER GLUCOSE POCT, B Routine 10/30/2024 5:52 PM CLAY MIXER INTERNAL MEDICINE IMAGE EXAM Routine 10/30/2024 2:35 PM EST INTERNAL MEDICINE IMAGE EXAM Routine 10/30/2024 2:30 PM EST INTERNAL MEDICINE IMAGE EXAM Routine 10/30/2024 2:25 PM EST INTERNAL MEDICINE IMAGE EXAM Routine 10/30/2024 2:20 PM EST DX HIP RIGHT WITH MAG MARKER ANTERIOR POSTERIOR PROXIMAL 1 VIEW RAD - Semiurgent (Fast; most ED patients; some inpatients) 10/30/2024 12:40 PM CLAY MIXER DX PELVIS 3+ VIEWS RAD - Semiurgent (Fast; most ED patients; some inpatients) 10/30/2024 12:40 PM CLAY MIXER DX CHEST 1 VIEW RAD - Semiurgent (Fast; most ED patients; some inpatients) 10/30/2024 12:40 PM CLAY MIXER DX FEMUR LEFT 2 VIEWS RAD - Semiurgent (Fast; most ED patients; some inpatients) 10/30/2024 12:40 PM CLAY MIXER GLUCOSE POCT, B Routine 10/30/2024 11:37 AM CLAY MIXER ECG Routine 10/30/2024 10:52 AM CLAY MIXER TYPE AND SCREEN STAT 10/30/2024 10:48 AM CLAY MIXER PROTHROMBIN TIME (PT), P STAT 10/30/2024 10:48 AM CLAY MIXER BASIC METABOLIC PANEL, S/P STAT 10/30/2024 10:48 AM CLAY MIXER CBC WITH DIFFERENTIAL, B STAT 10/30/2024 10:[address] ABDOMEN PELVIS WITHOUT AND WITH IV CONTRAST RAD - Semiurgent (Fast; most ED patients; some inpatients) 10/30/2024 10:[address] THORACIC AND LUMBAR SPINE BY RECONSTRUCTION RAD - Semiurgent (Fast; most ED patients; some inpatients) 10/30/2024 10:[address] CHEST WITHOUT IV CONTRAST RAD - Emergent (Fastest; for the most critically ill patients) 10/30/2024 10:[address] HEAD WITHOUT IV CONTRAST RAD - Semiurgent (Fast; most ED patients; some inpatients) 10/30/2024 10:[address] CERVICAL SPINE WITHOUT IV CONTRAST RAD - Emergent (Fastest; for the most critically ill patients) 10/30/2024 10:42 AM CLAY MIXER CREATININE, POCT, B Routine 10/30/2024 10:18 AM CLAY MIXER CREATININE, POCT, B Routine 10/30/2024 10:18 AM CLAY MIXER from Last 3 Months Results * (ABNORMAL) Glucose, POCT (11/07/2024 11:46 AM CLAY MIXER) Only the most recent of35 resultswithin the time period is included. Glucose, POCT, B 182(H) 70 - 140 mg/dL 11/07/2024 11:58 AM CLAY MIXER PCLX Site Capillary 11/07/2024 11:58 AM CLAY MIXER PCLX Last Intake 3-4 hours 11/07/2024 11:58 AM CLAY MIXER PCLX Blood 11/07/2024 11:4 6 AM CLAY MIXER 11/07/2024 11:58 AM CLAY MIXER us Unknown Provider LAB POCT ORDERABLES-MANUAL Echo l Result POC [facility] [address] [place] [address], [facility] PCLX [facility] POC [address] [place] [address] * (ABNORMAL) Renal Function Panel (11/07/2024 4:56 AM CLAY MIXER) Only the most recent of2 resultswithin the time period is included. Potassium, S 4.8 3.6 - 5.2 mmol/L 11/07/2024 6:17 AM CLAY MIXER DTL Sodium, S 139 135 - 145 mmol/L 11/07/2024 6:17 AM CLAY MIXER DTL Chloride, S 103 98 - 107 mmol/L 11/07/2024 6:17 AM CLAY MIXER DTL Bicarbonate, S 25 22 - 29 mmol/L 11/07/2024 6:17 AM CLAY MIXER DTL Anion Gap 11 7 - 15 11/07/2024 6:17 AM CLAY MIXER DTL BUN (Blood Urea Nitrogen), S 59(H) 6 - 21 mg/dL 11/07/2024 6:17 AM CLAY MIXER DTL Creatinine 1.81(H) 0.59 - 1.04 mg/dL 11/07/2024 6:17 AM CLAY MIXER DTL Estimated GFR (eGFR) 27(L) >=60 mL/min/BSA 11/07/2024 6:17 AM CLAY MIXER DTL Comment: Estimated GFR calculated using the 2020 CKD_EPI creatinine equation. Calcium, Total, S 9.1 8.8 - 10.2 mg/dL 11/07/2024 6:17 AM CLAY MIXER DTL Glucose, S 179(H) 70 - 140 mg/dL 11/07/2024 6:17 AM CLAY MIXER DTL Albumin, S 3.1(L) 3.5 - 5.0 g/dL 11/07/2024 6:17 AM CLAY MIXER DTL Phosphorus (Inorganic), S 4.5 2.5 - 4.5 mg/dL 11/07/2024 6:17 AM CLAY MIXER DTL Blood (Blood, Venous) 11/07/2024 4:56 AM CLAY MIXER 11/07/2024 5:57 AM CLAY MIXER Joshua Sharif Jr., M.D. LAB BLOOD ADD-ON Final Result [facility] - [facility] [address] [place] [address], [place] DTL [facility] [address] [place] [address] * (ABNORMAL) CBC with Differential, Blood (11/07/2024 4:56 AM CLAY MIXER) Only the most recent of8 resultswithin the time period is included. Hemoglobin 11.1(L) 11.6 - 15.0 g/dL 11/07/2024 5:53 AM CLAY MIXER DTL Hematocrit 34.4(L) 35.5 - 44.9 % 11/07/2024 5:53 AM CLAY MIXER DTL Erythrocytes 3.88(L) 3.92 - 5.13 x10(12)/L 11/07/2024 5:53 AM CLAY MIXER DTL MCV 88.7 78.2 - 97.9 fL 11/07/2024 5:53 AM CLAY MIXER DTL RBC Distrib Width 14.1 12.2 - 16.1 % 11/07/2024 5:53 AM CLAY MIXER DTL Platelet Count 205 157 - 371 x10(9)/L 11/07/2024 5:53 AM CLAY MIXER DTL Leukocytes 6.1 3.4 - 9.6 x10(9)/L 11/07/2024 5:53 AM CLAY MIXER DTL Neutrophils 2.91 1.56 - 6.45 x10(9)/L 11/07/2024 5:53 AM CLAY MIXER DHPM Lymphocytes 2.11 0.95 - 3.07 x10(9)/L 11/07/2024 5:53 AM CLAY MIXER DTL Monocytes 0.64 0.26 - 0.81 x10(9)/L 11/07/2024 5:53 AM CLAY MIXER DTL Eosinophils 0.39 0.03 - 0.48 x10(9)/L 11/07/2024 5:53 AM CLAY MIXER DTL Basophils 0.04 0.01 - 0.08 x10(9)/L 11/07/2024 5:53 AM CLAY MIXER DTL Blood (Blood, Venous) 11/07/2024 4:56 AM CLAY MIXER 11/07/2024 5:46 AM CLAY MIXER Joshua Sharif Jr., M.D. LAB BLOOD ADD-ON Final Result Performing Organization Address City/[facility] Co de Phone Number [facility] [address] [place] [address], [facility] [address] [place] [address] [facility] [address] [place] [address] * (ABNORMAL) Cystatin C with Estimated GFR (11/06/2024 5:18 PM CLAY MIXER) Only the most recent of3 resultswithin the time period is included. eGFR by Cystatin C 15(L) >60 mL/min/BSA 11/06/2024 6:48 PM CLAY MIXER DTL Comment: Estimated GFR calculated using the CKD-EPI Cystatin C (2012) equation. ----ADDITIONAL INFORMATION---- Cystatin C-based eGFR may differ substantially from creatinine- based eGFR in patients with abnormal muscle mass or acutely changing renal function. Please interpret together with relevant clinical features. On 04/03/2021 the cystatin C assay method changed. Cystatin C eGFR results > 50 ml/min/1.73m2 are approximately 10% lower with the new assay. Cystatin C 2.95(H) 0.67 - 1.21 mg/L 11/06/2024 6:48 PM CLAY MIXER DTL Blood (Blood, Venous) 11/06/2024 5:18 PM CLAY MIXER 11/06/2024 6:03 PM CLAY MIXER Joshua Sharif Jr., M.D. LAB BLOOD ADD-ON Final Result [facility] [address] [place] [address], [facility] [address] [place] [address] * (ABNORMAL) Basic Metabolic Panel (11/06/2024 5:18 PM CLAY MIXER) Only the most recent of9 resultswithin the time period is included. Pathologist [facility] Potassium, S 5.0 3.6 - 5.2 mmol/L 11/06/2024 6:48 PM CLAY MIXER DTL Sodium, S 138 135 - 145 mmol/L 11/06/2024 6:48 PM CLAY MIXER DTL Chloride, S 102 98 - 107 mmol/L 11/06/2024 6:48 PM CLAY MIXER DTL Bicarbonate, S 24 22 - 29 mmol/L 11/06/2024 6:48 PM CLAY MIXER DTL Anion Gap 12 7 - 15 11/06/2024 6:48 PM CLAY MIXER DTL BUN (Blood Urea Nitrogen), S 58(H) 6 - 21 mg/dL 11/06/2024 6:48 PM CLAY MIXER DTL Creatinine 1.93(H) 0.59 - 1.04 mg/dL 11/06/2024 6:48 PM CLAY MIXER DTL Estimated GFR (eGFR) 25(L) >=60 mL/min/BSA 11/06/2024 6:48 PM [facility] Comment: Estimated GFR calculated using the 2020 CKD_EPI creatinine equation. Calcium, Total, S 8.9 8.8 - 10.2 mg/dL 11/06/2024 6:48 PM [facility] DTL Glucose, S 150(H) 70 - 140 mg/dL 11/06/2024 6:48 PM [facility] D[facility] Blood (Blood, Venous) 11/06/2024 5:18 PM [facility] 11/06/2024 6:03 PM [facility] us Joshua Sharif Jr., M.D. LAB BLOOD ADD-ON Final Result [facility] [address] [place] [address], [facility] [address] [place] [address] * (ABNORMAL) Bacterial Culture, Aerobic + Susceptibility, Urine (11/05/2024 4:26 PM [facility]) Urine Culture With urogenital microbiota, susceptibilities not performed per laboratory criteria. (A) 11/09/2024 1:57 PM [facility] DTL Urine Culture ENTEROCOCCUS FAECALIS >100,000 cfu/mL (A) 11/09/2024 1:57 PM CLAY MIXER DTL Urine (Urine, Midstream) 11/05/2024 4:26 PM CLAY MIXER 11/05/2024 5:28 PM CLAY MIXER Comment:Specimen Source Site : Urine Narrative Organism Antibiotic Method Susceptibility Enterococcus faecalis Levofloxacin SUSCEPTIBI LITY, SARAHY (MCG/ML) 2 mcg/mL: Susceptible Enterococcus faecalis Nitrofurantoin SUSCEPTIBI LITY, SARAHY (MCG/ML) <=32 mcg/mL: Susceptible Enterococcus faecalis Vancomycin SUSCEPTIBI LITY, SARAHY (MCG/ML) <=2 mcg/mL: Susceptible Enterococcus faecalis Penicillin SUSCEPTIBI LITY, SARAHY (MCG/ML) 1 mcg/mL: Susceptible Joshua Sharif Jr., M.D. LAB MICROBIOLOGY - GENE RAL ORDERABLES Final Result Performing Organization Address City/[facility] Co de Phone Number [facility] [address] [place] [address], [facility] [address] [place] [address] * (ABNORMAL) Dipstick, Urine (11/05/2024 11:55 AM CLAY MIXER) Only the most recent of2 resultswithin the time period is included. Hemoglobin, QL, U Trace(A) Negative 11/05/2024 12:34 PM CLAY MIXER DTL Leukocyte Esterase, U Small(A) Negative 11/05/2024 12:34 PM CLAY MIXER DTL Nitrite, U Negative Negative 11/05/2024 12:34 PM CLAY MIXER DTL Ketone, U 5(A) Negative mg/dL 11/05/2024 12:34 PM CLAY MIXER DTL Glucose, U Negative Negative mg/dL 11/05/2024 12:34 PM CLAY MIXER DTL Urine 11/05/2024 11:5 5 AM CLAY MIXER 11/05/2024 12:24 PM CLAY MIXER Joshua Sharif Jr., M.D. LAB URINE ORDERABLES Fi nal Result Performing Organization Address [facility]/ZIP Co de Phone Number [facility] [address] [place] [address], [facility] [address] [place] [address] * (ABNORMAL) Microscopic Manual (11/05/2024 11:55 AM CLAY MIXER) Microscopy Abnormal 11/05/2024 12:51 PM CLAY MIXER DTL RBC <3 <3 /hpf 11/05/2024 12:51 PM CLAY MIXER DTL WBC 51-100(A) /hpf 11/05/2024 12:51 PM CLAY MIXER DTL Comment: ----REFERENCE VALUE---- <4 (Males) <11 (Females) Casts, Hyaline Occas /lpf 11/05/2024 12:51 PM CLAY MIXER DTL Squamous Epithelial Cells, U 1-3 /hpf 11/05/2024 12:51 PM CLAY MIXER DTL Bacteria Present(A) 11/05/2024 12:51 PM CLAY MIXER DTL Urine 11/05/2024 11:5 5 AM CLAY MIXER 11/05/2024 12:34 PM CLAY MIXER Joshua Sharif Jr., M.D. LAB URINE ORDERABLES Fi nal Result Performing Organization Address City/[facility]/ZIP Co de Phone Number [facility] [address] [place] [address], [facility] [address] [place] [address] * pH, Urine (11/05/2024 11:55 AM CLAY MIXER) Only the most recent of2 resultswithin the time period is included. pH, U 6.7 4.5 - 8.0 11/05/2024 12: 53 PM CLAY MIXER DTL Urine 11/05/2024 11:5 5 AM CLAY MIXER 11/05/2024 12:24 PM CLAY MIXER us Joshua Sharif Jr., M.D. LAB URINE ORDERABLES Fi nal Result Performing Organization Address City/[facility]/ZIP Co de Phone Number [facility] [address] [place] [address], [facility] [place] [address] * Osmolality, Urine (11/05/2024 11:55 AM CLAY MIXER) Only the most recent of2 resultswithin the time period is included. Osmolality, U 522 150 - 1150 mOsm/kg 11/05/2024 12:53 PM CLAY MIXER DTL Urine 11/05/2024 11:5 5 AM CLAY MIXER 11/05/2024 12:24 PM CLAY MIXER us Joshua Sharif Jr., M.D. LAB URINE ORDERABLES Fi nal Result Performing Organization Address City/[facility]/ZIP Co de Phone Number [facility] [address] [place] [address], [facility] DTL [facility] [address] [place] [address] * (ABNORMAL) Urinalysis, with Microscopic: Urine, Straight Catheter (11/05/2024 11:55 AM CLAY MIXER) Only the most recent of2 resultswithin the time period is included. Source Urine, Urine, Straight Catheter 11/05/2024 12:24 PM CLAY MIXER DTL Color, U Yellow 11/05/2024 12:24 PM CLAY MIXER DTL Clarity, U Clear 11/05/2024 12:24 PM CLAY MIXER DTL Protein, U 27(H) <26 mg/dL 11/05/2024 12:57 PM CLAY MIXER DTL Protein/Osmola lity 0.52(H) <0.42 ratio 11/05/2024 12:57 PM CLAY MIXER DTL Predicted 24 HR Protein, U 368(H) <229 mg/24 h 11/05/2024 12:57 PM CLAY MIXER DTL Predicted Range 91-1488 mg/24 h 11/05/2024 12:57 PM CLAY MIXER DTL Urine (Urine, Straight Catheter) 11/05/2024 11:55 AM CLAY MIXER 11/05/2024 12:24 PM CLAY MIXER us Joshua Sharif Jr., M.D. LAB URINE ORDERABLES Fi nal Result Performing Organization Address City/[facility]/ZIP Co de Phone Number [facility] [address] [place] [address], [place] DTL [facility] [address] [place] [address] * US Kidneys Bilateral with Bladder (11/05/2024 8:36 AM CLAY MIXER) Anatomical Region Laterality Modality Abdomen, Renal, Ultrasound R ST LOS, Ultrasound ARZ LOS, Ultrasound FLA LOS Bilateral Ultrasound Impressions 11/05/2024 8:44 AM CLAY MIXER Left kidney not visualized due to positioning and overlying bowel gas. No hydronephrosis on the right. Narrative 11/05/2024 8:44 AM CLAY MIXER EXAM: US KIDNEYS BILATERAL WITH BLADDER COMPARISON: CT from 10/30/2024. FINDINGS: Right kidney: 8.6 cm. Cortical thickness: Normal. Parenchymal echogenicity: Normal. Collecting system: No hydronephrosis. Nonobstructing 4 mm calculus in the lower pole. Masses: None detected. Left kidney: Limited visualization due to overlying bowel and, the patient could not tolerate positioning on the side. Bladder: Normal. Procedure Note Aryan Odell M.D. - 11/05/2024 EXAM: US KIDNEYS BILATERAL WITH BLADDER COMPARISON: CT from 10/30/2024. FINDINGS: Right kidney: 8.6 cm. Cortical thickness: Normal. Parenchymal echogenicity: Normal. Collecting system: No hydronephrosis. Nonobstructing 4 mm calculus in thelower pole. Masses: None detected. Left kidney: Limited visualization due to overlying bowel and, the patientcould not tolerate positioning on the side. Bladder: Normal. IMPRESSION: Left kidney not visualized due to positioning and overlying bowel gas. Nohydronephrosis on the right. us Joshua Sharif Jr., M.D. IMG US PROCEDURES Final Result * (ABNORMAL) Phosphorus Inorganic (11/05/2024 7:13 AM CLAY MIXER) Phosphorus (Inorganic), S 4.6(H) 2.5 - 4.5 mg/dL 11/05/2024 8:06 AM CLAY MIXER DTL Blood (Blood, Venous) 11/05/2024 7:13 AM CLAY MIXER 11/05/2024 7:48 AM CLAY MIXER us Joshua Sharif Jr., M.D. LAB BLOOD ADD-ON Final Result Performing Organization Address City/[facility]/ZIP Co de Phone Number [facility] [address] [place], [place] [address] [place] [address] [address] [place] [address] * Magnesium (11/05/2024 7:13 AM CLAY MIXER) Pathologist [facility] Magnesium, S 1.9 1.7 - 2.3 mg/dL 11/05/2024 8:06 AM CLAY MIXER DT Blood (Blood, Venous) 11/05/2024 7:13 AM CLAY MIXER 11/05/2024 7:48 AM CLAY MIXER Joshua Sharif Jr., M.D. LAB BLOOD ADD-ON Final Result Performing Organization Address City/[facility]/ZIP Co de Phone Number [facility] [address] [place], [place] [address] [place] [address] [address] [place] [address] * CK (Creatine Kinase) (11/05/2024 7:13 AM CLAY MIXER) Pathologist [facility] Creatine Kinase (CK), S 35 26 - 192 U/L 11/05/2024 8:06 AM CLAY MIXER DT Blood (Blood, Venous) 11/05/2024 7:13 AM CLAY MIXER 11/05/2024 7:48 AM CLAY MIXER Joshua Sharif Jr., M.D. LAB BLOOD ADD-ON Final Result Performing Organization Address City/[facility]/ZIP Co de Phone Number [facility] [address] [place], [place] [address] [place] [phone] * (ABNORMAL) Hemoglobin A1c (11/02/2024 10:14 PM CLAY MIXER) Pathologist [facility] Hemoglobin A1c, B 8.8(H) 4.0 - 5.6 % 11/02/2024 10:56 PM CLAY MIXER DT Comment: Hemoglobin A1c values greater than or equal to 6.5 percent are diagnostic for diabetes mellitus. Diagnosis should be confirmed by repeat testing. In diabetic patients, HbA1c goals should be discussed with healthcare provider. Blood (Blood, Venous) 11/02/2024 10:14 PM CLAY MIXER 11/02/2024 10:40 PM CLAY MIXER No Gonzales APRNNNavdeepP. LAB BLOOD ADD-ON Final Result Performing Organization Address [facility] de Phone Number [facility] [address] [place] [address], [facility] [address] [place] [address] * Microscopic Automated (11/01/2024 9:47 AM CLAY MIXER) Microscopy Normal 11/01/2024 10:47 AM CLAY MIXER DTL RBC None Seen <3 /hpf 11/01/2024 10:47 AM CLAY MIXER DTL WBC 4-10 /hpf 11/01/2024 10:47 AM CLAY MIXER DTL Comment: ----REFERENCE VALUE---- <4 (Males) <11 (Females) Urine 11/01/2024 9:47 AM CLAY MIXER 11/01/2024 10:10 AM CLAY MIXER Teddy Sen M.D., M.S. LAB URINE ORDERABLES F inal Result Performing Organization Address [facility] de Phone Number [facility] [address] [place] [address], [facility] [address] [place] [address] * Perianal Area-Internal Medicine Image Exam (10/31/2024 2:40 PM CLAY MIXER) Only the most recent of7 resultswithin the time period is included. 10/31/2024 2:37 PM CLAY MIXER Narrative IIMS - 10/31/2024 2:40 PM CLAY MIXER This order has been created and auto-finalized to support the import of images acquired without order. The clinical documentation to support these images can be found on the encounter that produced images. us Provider Not In System IMG NON RAD IMAGING PROCE DURES Final Result IIMS NA * DX Hip Right with Mag Marker Anterior Posterior Proximal 1 View (10/30/2024 12:40 PM CLAY MIXER) Anatomical Region Laterality Modality Lower Extremity, Hip, Muscul oskeletal RST LOS, Musculoskeletal ARZ LOS, Muskuloskeletal FLA LOS Right Digit al Radiography Impressions 10/30/2024 12:58 PM CLAY MIXER Diffuse demineralization. No definite acute displaced fracture or traumatic misalignment. Vascular calcifications. Narrative 10/30/2024 12:58 PM CLAY MIXER EXAM: DX HIP RIGHT WITH MAG MARKER ANTERIOR POSTERIOR PROXIMAL 1 VIEW Procedure Note Andrea Gerber D.O. - 10/30/2024 EXAM: DX HIP RIGHT WITH MAG MARKER ANTERIOR POSTERIOR PROXIMAL 1 VIEW IMPRESSION: Diffuse demineralization. No definite acute displaced fracture ortraumatic misalignment. Vascular calcifications. Andrés Lee P.A.-C. IMG DIAGNOSTIC IMAGING PRO CEDURES Final Result * DX Chest 1 View (10/30/2024 12:40 PM CLAY MIXER) Anatomical Region Laterality Modality Chest, Thoracic RST LOS, Tho racic ARZ LOS, Thoracic FLA LOS N/A Digital Radiography Impressions 10/30/2024 12:56 PM CLAY MIXER Lower lung volumes compared to 01/19/2024. Accentuated cardiomediastinal silhouette. Calcified tortuous aorta. AV pacemaker. Abandoned lead projects over the left hemithorax. Spinal stimulator. Surgical clips in the upper abdomen. Lower thoracic vertebroplasty. Narrative 10/30/2024 12:56 PM CLAY MIXER EXAM: DX CHEST 1 VIEW Procedure Note Ar Gallardo M.D. - 10/30/2024 EXAM: DX CHEST 1 VIEW IMPRESSION: Lower lung volumes compared to 01/19/2024. Accentuated cardiomediastinalsilhouette. Calcified tortuous aorta. AV pacemaker. Abandoned leadprojects over the left hemithorax. Spinal stimulator. Surgical clips inthe upper abdomen. Lower thoracic vertebroplasty. [facility] Jesus Regan. [facility] PRO CEDURES Final Result * DX Femur Left 2 Views (10/30/2024 12:40 PM CLAY MIXER) Anatomical Region Laterality Modality Lower Extremity, Femur, Musc uloskeletal RST LOS, Musculoskeletal ARZ LOS, Muskuloskeletal FLA LOS Left Digit al Radiography Impressions 10/30/2024 12:57 PM CLAY MIXER Diffuse demineralization. Redemonstrated acute, fracture of the left pubic symphysis and adjacent pubic rami. Left sacral fracture better characterized on previous CT. Left TKA with patellar resurfacing. Small knee joint effusion. No definite acute fracture of the knee or radiographic evidence of hardware failure. Vascular calcifications. Excreted contrast in the bladder. Narrative 10/30/2024 12:57 PM CLAY MIXER EXAM: DX FEMUR LEFT 2 VIEWS Procedure Note Andrea Gerber D.O. - 10/30/2024 EXAM: DX FEMUR LEFT 2 VIEWS IMPRESSION: Diffuse demineralization. Redemonstrated acute, fracture of the left pubicsymphysis and adjacent pubic rami. Left sacral fracture bettercharacterized on previous CT. Left TKA with patellar resurfacing. Smallknee joint effusion. No definite acute fracture of the knee or radiographic evidence of hardwarefailure. Vascular calcifications. Excreted contrast in the bladder. [facility] Destiny Lee P.A.-C. [facility] PRO CEDURES Final Result * DX Pelvis 3+ Views (10/30/2024 12:40 PM CLAY MIXER) Anatomical Region Laterality Modality Pelvis, Musculoskeletal RST LOS, Musculoskeletal ARZ LOS, Muskuloskeletal FLA LOS N/A Digital Radiography Impressions 10/30/2024 1:01 PM CLAY MIXER No radiographic comparison. Acute, mildly displaced and comminuted fractures involving the left superior and inferior pubic rami. The superior ramus fracture extends into the left pubic body. The sacral fracture is better seen on the same day CT. Degenerative change, lower lumbar spine, pelvis and both hips. Spinal stimulator. Distended urinary bladder filled with contrast. Arterial calcification. Narrative 10/30/2024 1:01 PM CLAY MIXER EXAM: DX PELVIS 3+ VIEWS Procedure Note Ar Gallardo M.D. - 10/30/2024 EXAM: DX PELVIS 3+ VIEWS IMPRESSION: No radiographic comparison. Acute, mildly displaced and comminutedfractures involving the left superior and inferior pubic rami. Thesuperior ramus fracture extends into the left pubic body. The sacralfracture is better seen on the same day CT. Degenerative change, lower lumbar spine, pelvis and both hips.Spinal stimulator. Distended urinary bladder filled with contrast.Arterial calcification. Andrés NewsomeC. IMG DIAGNOSTIC IMAGING PRO CEDURES Final Result * ECG 12 Lead (10/30/2024 10:52 AM CLAY MIXER) Ventricular Rate ECG/Min 70 BPM MUSE KS Interval 174 ms MUSE QRSD Interval 156 ms MUSE QT Interval 434 ms MUSE QTC Interval 468 ms MUSE P [place] 73 degrees MUSE R [place] -76 degrees MUSE T Wave [place] 76 degrees MUSE 10/30/2024 10:5 2 AM CLAY MIXER 10/30/2024 11:02 AM CLAY MIXER Impressions MUSE - 10/30/2024 11:02 AM CLAY MIXER Atrial-sensed ventricular-paced rhythm Sinus rhythm When compared with ECG of 19-Jan-2024 07:23, Vent. rate has decreased by 23 bpm QT has shortened Reviewed by FRANDY Lester Narrative Procedure Note Yared Haines M.D., Ph.D. - 10/30/2024 IMPRESSION: Atrial-sensed ventricular-paced rhythm Sinus rhythm When compared with ECG of 19-Jan-2024 07:23, Vent. rate has decreased by 23 bpm QT has shortened Reviewed by FRANDY Lester Andrés Destiny Lee P.A.-C. ECG ORDERABLES Final Resu lt Performing Organization Address City/State/[facility] de Phone Number MUSE NA * (ABNORMAL) Prothrombin Time (PT) (10/30/2024 10:48 AM CLAY MIXER) Prothrombin Time, P 12.9(H) 9.4 - 12.5 sec 10/30/2024 11:00 AM CLAY MIXER STMA INR 1.2 0.9 - 1.1 10/30/2024 11:00 AM CLAY MIXER STMA Comment: ----ADDITIONAL INFORMATION---- Standard intensity warfarin therapeutic range: 2.0 to 3.0 High intensity warfarin therapeutic range: 2.5 to 3.5 Blood (Blood, Venous) 10/30/2024 10:48 AM CLAY MIXER 10/30/2024 10:54 AM CLAY MIXER Andrés NewsomeC. LAB BLOOD ADD-ON Final Res ult Performing Organization Address [facility] de Phone Number [facility] [address] [place] [address], [facility] STMA [facility] [address] [place] [address] * Type and Screen (with Reflex Antibody ID) (10/30/2024 10:48 AM CLAY MIXER) Pathologist [facility] ABORh B Pos Not applicable 10/30/2024 11:24 AM CLAY MIXER STRM Antibody Screen Negative Negative 10/30/2024 11:39 AM CLAY MIXER STRM Type & Screen Expiration 11/02/2024 23:59 10/30/2024 11:24 AM CLAY MIXER STRM Testing Location Dariana DEFAULT 10/30/2024 10:54 AM CLAY MIXER STRM Blood (Blood, Venous) 10/30/2024 10:48 AM CLAY MIXER 10/30/2024 10:54 AM CLAY MIXER us Andrés Destiny QuinnA.-C. LAB BLOOD BANK TEST ORDERA BLES Final Result Performing Organization Address [facility] de Phone Number [facility] [address] [place] [address], [facility] STRM [facility] [address] [place] [address] * CT Abdomen Pelvis without and with IV Contrast (10/30/2024 10:42 AM CLAY MIXER) Anatomical Region Laterality Modality Abdomen, Pelvis, Abdominal R ST LOS, Abdominal ARZ LOS, Abdominal FLA LOS N/A Computed Tomograp hy, Computed Tomography 10/30/2024 10:4 3 AM CLAY MIXER Impressions 10/30/2024 11:25 AM CLAY MIXER Mildly displaced acute fractures in the left pelvis and sacrum, with associated blood products and intramuscular hematomas. No active hemorrhage. Narrative 10/30/2024 11:25 AM CLAY MIXER EXAM: CT CHEST WITHOUT IV CONTRAST, CT ABDOMEN PELVIS WITHOUT IV CONTRAST COMPARISON: CT chest/abdomen/pelvis 01/19/2024. FINDINGS: CHEST: Interval healing of the left scapular fracture. Old rib and sternal fractures. Stable spinal compression deformities and vertebroplasties. Spinal stimulator device. Cardiac pacer. Ribbon-like material in the anterior left chest wall subcutaneous tissues may be at a site of previous device. No pneumothorax or pleural fluid. ABDOMEN/PELVIS: Comminuted fracture of the left pubic symphysis and adjacent pubic rami. Small- volume adjacent blood products and intramuscular hematomas. Mildly displaced fracture of the left sacral ala. Cholecystectomy. New mild pneumobilia is of doubtful significance. Findings of pelvic fractures and blood products were discussed with the ordering clinician, and a decision was made to rescan with contrast. Subsequent arterial and venous phase images are negative for active hemorrhage. Procedure Note Brandon, Ozzie Mark M.D. - 10/30/2024 EXAM: CT CHEST WITHOUT IV CONTRAST, CT ABDOMEN PELVIS WITHOUT IVCONTRAST COMPARISON: CT chest/abdomen/pelvis 01/19/2024. FINDINGS: CHEST: Interval healing of the left scapular fracture. Old rib and sternalfractures. Stable spinal compression deformities and vertebroplasties.Spinal stimulator device. Cardiac pacer. Ribbon-like material in theanterior left chest wall subcutaneous tissues may be at a site of previous device. No pneumothorax or pleural fluid. ABDOMEN/PELVIS: Comminuted fracture of the left pubic symphysis and adjacent pubic rami.Small- volume adjacent blood products and intramuscular hematomas. Mildly displaced fracture of the left sacral ala. Cholecystectomy. New mild pneumobilia is of doubtful significance. Findings of pelvic fractures and blood products were discussed with theordering clinician, and a decision was made to rescan with contrast.Subsequent arterial and venous phase images are negative for activehemorrhage. IMPRESSION: Mildly displaced acute fractures in the left pelvis and sacrum, withassociated blood products and intramuscular hematomas. No activehemorrhage. us Andrés Lee P.A.-C. IMG CT PROCEDURES Final Re sult * CT Thoracic and Lumbar Spine by Reconstruction (10/30/2024 10:42 AM CLAY MIXER) Anatomical Region Laterality Modality Thoracic Spine, Neuroradiolo gy RST LOS, Neuroradiology ARZ LOS, Neuroradiology FLA LOS N/A Computed Tomography, Compute d Tomography Impressions 10/30/2024 11:35 AM CLAY MIXER 1. Negative for acute traumatic finding in the thoracolumbar spine. 2. 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 Narrative 10/30/2024 11:35 AM CLAY MIXER EXAM: CT THORACIC AND LUMBAR SPINE BY RECONSTRUCTION COMPARISON: CT Thoracolumbar spine 01/19/2024 FINDINGS: THORACIC SPINE: 12 rib-bearing thoracic vertebral bodies. Negative for acute fracture or traumatic malalignment. Diffuse osteopenia. Chronic compression deformity of the T12 vertebral body with vertebroplasty. Diffuse disc height loss and uncovertebral hypertrophic changes. No high-grade neural foraminal or spinal canal narrowing. Dorsal epidural spinal cord stimulator leads T10-T11. Redemonstrated retained catheter/lead in the superficial soft tissue posteriorly. LUMBAR SPINE: 5 lumbar type vertebral bodies. Negative for acute fracture or traumatic malalignment. Mild anterolisthesis L3 on L4 and L4 on L5. Slight retrolisthesis L5 on S1. Vertebral compression deformities with up to moderate height loss L3 and L4, unchanged since 01/19/2024. Vertebroplasty of the L3 vertebral body. Moderate low lumbar facet arthropathy. Up to advanced spinal canal narrowing greatest at L4-L5, stable. Multilevel neural foraminal narrowing including mild bilateral L1-L2 and L2-L3, moderate right greater than left L3-L4, advanced bilateral L4-L5, and advanced right and moderate left L5-S1. This was performed in conjunction with a CT of the chest, abdomen, and pelvis which will be reported separately. Please see the dedicated report for any additional findings. Procedure Note Roddy Tyler M.D. - 10/30/2024 EXAM: CT THORACIC AND LUMBAR SPINE BY RECONSTRUCTION COMPARISON: CT Thoracolumbar spine 01/19/2024 FINDINGS: THORACIC SPINE: 12 rib-bearing thoracic vertebral bodies. Negative for acute fracture ortraumatic malalignment. Diffuse osteopenia. Chronic compression deformityof the T12 vertebral body with vertebroplasty. Diffuse disc height lossand uncovertebral hypertrophic changes. No high-grade neural foraminal or spinal canal narrowing. Dorsalepidural spinal cord stimulator leads T10-T11. Redemonstrated retainedcatheter/lead in the superficial soft tissue posteriorly. LUMBAR SPINE: 5 lumbar type vertebral bodies. Negative for acute fracture or traumaticmalalignment. Mild anterolisthesis L3 on L4 and L4 on L5. Slightretrolisthesis L5 on S1. Vertebral compression deformities with up tomoderate height loss L3 and L4, unchanged since 01/19/2024. Vertebroplasty of the L3 vertebral body. Moderate lowlumbar facet arthropathy. Up to advanced spinal canal narrowing greatestat L4-L5, stable. Multilevel neural foraminal narrowing including mildbilateral L1-L2 and L2-L3, moderate right greater than left L3-L4, advanced bilateral L4-L5, and advancedright and moderate left L5-S1. This was performed in conjunction with a CT of the chest, abdomen, andpelvis which will be reported separately. Please see the dedicated reportfor any additional findings. IMPRESSION: 1. Negative for acute traumatic finding in the thoracolumbar spine. 2. Spondylotic changes including advanced spinal canal narrowing L4-L5 inaddition to multilevel up to advanced neural foraminal narrowing asdescribed and unchanged since 01/19/2024. us Andrés Lee P.A.-C. IMIram CT PROCEDURES Final Re sult * CT Cervical Spine without IV Contrast (10/30/2024 10:42 AM CLAY MIXER) Anatomical Region Laterality Modality Cervical Spine, Neuroradiolo gy RST LOS, Neuroradiology ARSima [facility], Neuroradiology FLA LOS N/A Computed Tomography, Compute d Tomography 10/30/2024 9:50 AM CLAY MIXER Impressions 10/30/2024 11:36 AM CLAY MIXER Multilevel cervical degenerative spondylotic changes. No cervical vertebral body fracture detected. Prevertebral soft tissues within normal limits. Stable spondylotic changes with canal and bony neural foraminal narrowing, as described, unchanged from 01/19/2024. Narrative 10/30/2024 11:36 AM CLAY MIXER EXAM: CT CERVICAL SPINE WITHOUT IV CONTRAST COMPARISON: CT cervical spine 01/19/2024. FINDINGS: Negative for acute fracture or traumatic malalignment in the cervical spine. Up to advanced degenerative changes, not substantially changed since 01/19/2024. Osteopenia. Multilevel advanced disc height loss with uncovertebral spurring. Subsequent mild effacement of the cervical spinal canal with central calcified disc/spurs. Additional right paracentral/subarticular spur C4-C5. Associated up to moderate to advanced bony neural foraminal narrowing bilaterally C4-C5, C5-6 and C6-C7. Normal prevertebral soft tissues. Procedure Note Clem Grimes M.D. - 10/30/2024 EXAM: CT CERVICAL SPINE WITHOUT IV CONTRAST COMPARISON: CT cervical spine 01/19/2024. FINDINGS: Negative for acute fracture or traumatic malalignment in thecervical spine. Up to advanced degenerative changes, not substantiallychanged since 01/19/2024. Osteopenia. Multilevel advanced disc height losswith uncovertebral spurring. Subsequent mild effacement of the cervical spinal canal with centralcalcified disc/spurs. Additional right paracentral/subarticular spurC4-C5. Associated up to moderate to advanced bony neural foraminalnarrowing bilaterally C4-C5, C5-6 and C6-C7. Normal prevertebral soft tissues. IMPRESSION: Multilevel cervical degenerative spondylotic changes. No cervicalvertebral body fracture detected. Prevertebral soft tissues within normallimits. Stable spondylotic changes with canal and bony neural foraminalnarrowing, as described, unchanged from 01/19/2024. us Andrés NewsomeC. IMG CT PROCEDURES Final Re sult * CT Chest without IV Contrast (10/30/2024 10:42 AM CLAY MIXER) Anatomical Region Laterality Modality Chest, Thoracic RST LOS, Tho racic ARZ LOS, Thoracic FLA LOS N/A Computed Tomography, Compute d Tomography Impressions 10/30/2024 11:25 AM CLAY MIXER Mildly displaced acute fractures in the left pelvis and sacrum, with associated blood products and intramuscular hematomas. No active hemorrhage. Narrative 10/30/2024 11:25 AM CLAY MIXER EXAM: CT CHEST WITHOUT IV CONTRAST, CT ABDOMEN PELVIS WITHOUT IV CONTRAST COMPARISON: CT chest/abdomen/pelvis 01/19/2024. FINDINGS: CHEST: Interval healing of the left scapular fracture. Old rib and sternal fractures. Stable spinal compression deformities and vertebroplasties. Spinal stimulator device. Cardiac pacer. Ribbon-like material in the anterior left chest wall subcutaneous tissues may be at a site of previous device. No pneumothorax or pleural fluid. ABDOMEN/PELVIS: Comminuted fracture of the left pubic symphysis and adjacent pubic rami. Small- volume adjacent blood products and intramuscular hematomas. Mildly displaced fracture of the left sacral ala. Cholecystectomy. New mild pneumobilia is of doubtful significance. Findings of pelvic fractures and blood products were discussed with the ordering clinician, and a decision was made to rescan with contrast. Subsequent arterial and venous phase images are negative for active hemorrhage. Procedure Note Brandon, Ozzie Mark M.D. - 10/30/2024 EXAM: CT CHEST WITHOUT IV CONTRAST, CT ABDOMEN PELVIS WITHOUT IVCONTRAST COMPARISON: CT chest/abdomen/pelvis 01/19/2024. FINDINGS: CHEST: Interval healing of the left scapular fracture. Old rib and sternalfractures. Stable spinal compression deformities and vertebroplasties.Spinal stimulator device. Cardiac pacer. Ribbon-like material in theanterior left chest wall subcutaneous tissues may be at a site of previous device. No pneumothorax or pleural fluid. ABDOMEN/PELVIS: Comminuted fracture of the left pubic symphysis and adjacent pubic rami.Small- volume adjacent blood products and intramuscular hematomas. Mildly displaced fracture of the left sacral ala. Cholecystectomy. New mild pneumobilia is of doubtful significance. Findings of pelvic fractures and blood products were discussed with theordering clinician, and a decision was made to rescan with contrast.Subsequent arterial and venous phase images are negative for activehemorrhage. IMPRESSION: Mildly displaced acute fractures in the left pelvis and sacrum, withassociated blood products and intramuscular hematomas. No activehemorrhage. us Andrés Lee P.A.-C. IMG CT PROCEDURES Final Re sult * CT Head without IV Contrast (10/30/2024 10:42 AM CLAY MIXER) Anatomical Region Laterality Modality Head, Neuroradiology RST LOS , Neuroradiology ARZ LOS, Neuroradiology FLA LOS N/A Computed Tomography, Compute d Tomography 10/30/2024 9:50 AM CLAY MIXER Impressions 10/30/2024 10:19 AM CLAY MIXER Left parietal posttraumatic extra cranial soft tissue swelling with small soft tissue hematoma. No subjacent calvarial fracture. No acute intracranial findings. Narrative 10/30/2024 10:19 AM CLAY MIXER EXAM: CT HEAD WITHOUT IV CONTRAST COMPARISON: CT head without 01/19/2024 FINDINGS: Left parietal posttraumatic extracranial soft tissue swelling with small soft tissue hematoma. No subjacent calvarial fracture. Negative for acute intracranial hemorrhage, extra-axial fluid collection, or mass effect. Chronic striatocapsular and thalamic lacunar infarcts. Right basal ganglia calcification. Advanced chronic microvascular angiopathic change. There is otherwise preserved frias-white matter differentiation. Age commensurate brain parenchymal volume loss. Mild maxillary mucosal thickening. Intracranial vascular calcified arteriosclerotic disease. Otherwise, the paranasal sinuses and mastoid air cells are well aerated. Multiple dental caries and periapical lucencies. Lens replacements. Hyperostosis frontalis interna. Carious dentition and multiple periapical lucencies. Procedure Note Clem Grimes M.D. - 10/30/2024 EXAM: CT HEAD WITHOUT IV CONTRAST COMPARISON: CT head without 01/19/2024 FINDINGS: Left parietal posttraumatic extracranial soft tissue swellingwith small soft tissue hematoma. No subjacent calvarial fracture. Negativefor acute intracranial hemorrhage, extra-axial fluid collection, or masseffect. Chronic striatocapsular and thalamic lacunar infarcts. Right basal ganglia calcification. Advancedchronic microvascular angiopathic change. There is otherwise preservedgray-white matter differentiation. Age commensurate brain parenchymalvolume loss. Mild maxillary mucosal thickening. Intracranial vascular calcified arteriosclerotic disease.Otherwise, the paranasal sinuses and mastoid air cells are well aerated.Multiple dental caries and periapical lucencies. Lens replacements.Hyperostosis frontalis interna. Carious dentition and multiple periapical lucencies. IMPRESSION: Left parietal posttraumatic extra cranial soft tissue swelling with smallsoft tissue hematoma. No subjacent calvarial fracture. No acuteintracranial findings. us Andrés Lee P.A.-C. IMG CT PROCEDURES Final Re sult * (ABNORMAL) Creatinine, POCT (10/30/2024 10:18 AM CLAY MIXER) Only the most recent of2 resultswithin the time period is included. Estimated GFR (eGFR), POCT 31(L) >=60 mL/min/BSA 10/30/2024 10:38 AM CLAY MIXER PCED Comment: Estimated GFR calculated using the 2020 CKD_EPI creatinine equation. Blood 10/30/2024 10:1 8 AM CLAY MIXER 10/30/2024 10:38 AM CLAY MIXER us Unknown Provider LAB POCT ORDERABLES - DEVICE Fi nal Result POC RST [facility] [address] [place], [place] [id number] [place] [address] PCED [facility] POC [address] [place] [address] from Last 3 Months Insurance * Guarantor: Hayde Fong Account Type Relation to Patient Date of Phone Billing Address Personal/Family Self [address], [address] [place] [address] [facility] [place] [address] MEDICARE Advance Directives For more information, please contact: [phone] * DNR/DNI (Latest Code Status on File) Date Activated Date Inactivated Comments 10/30/2024 1:54 PM 11/07/2024 2:53 PM Question Answer Comments DNR/DNI (Do Not Resuscitate/ Do Not Intubate): Not discussed- patient's documented wishes verified * DNR/DNI Date Activated Date Inactivated Comments 10/30/2024 10:06 AM 10/30/2024 1:54 PM Question Answer Comments DNR/DNI (Do Not Resuscitate/ Do Not Intubate): Discussed- Alternative/surrogate decision maker * DNR/DNI Date Activated Date Inactivated Comments 01/19/2024 4:38 PM 01/24/2024 5:11 PM * DNR/DNI Date Activated Date Inactivated Comments 01/25/2023 2:14 AM 01/29/2023 5:02 PM Care Teams Staff Analyst Relationship Specialty Start Date End Date Maggie Gallardo P.A.-C. [address] [phone] PCP - General Family Medicine 11/14/24
--- OUTSIDE RECORDS SUMMARY | 2024-12-22 16:01 | XMS_ITS | Encounter Summary ---
Author Organization [facility] Address [address] [place] [address] Care Team Providers Care Top Carrier Name Role Phone Chu Cruz PA-C Primary Care Provider Minna Chawla RN Unavailable Unavailable Minna Chawla RN Unavailable Unavailable Chu Cruz PA-C Unavailable [phone] Luis Miguel Woodson MD Unavailable Unavailable Daisy Mejia CHILD DEVELOPMENT CONSULTANT Unavailable Aruna Mart Unavailable [phone] Chris Ricketts DPM Unavailable [phone] Chris Ricketts DPM Unavailable [phone] Clem Maynard MD Unavailable [phone] Clem Maynard MD Unavailable [phone] Encounter Details Date Type Department Care Team (Late st Contact Info) Description 05/13/2022 [facility] [place] [facility] [address] [address] Lazara Ayers MA Social History Tobacco Use Types Packs/Day Years Used Date Smoking Tobacco: Former Smokeless Tobacco: Never Comments:only 6 months use Alcohol Use Standard Drinks/Week Comments Yes 0 (1 standard drink = 0.6 oz pur e alcohol) rarely PHQ-2 Answer Date Recorded PHQ-2 Score 1 03/26/2022 Comments No Sex and Gender Information Value Date Recorded Sex Assigned at Female 01/14/2021 7:[address] SQL DEVELOPER Legal Sex Female 6:11 PM CDT Gender Identity Female 01/14/2021 7:[address] SQL DEVELOPER Sexual Orientation Straight 01/14/2021 7: [address] SQL DEVELOPER COVID-19 Exposure Response Date Recorded In the last 10 days, have yo u been in contact with someone who was confirmed or suspected to have Coronavirus/COVID-19? No / Unsure 04/30/2022 12:55 PM CDT documented as of this encounter [...] documented as of this encounter Care Teams Top Carrier Relationship Specialty Start Date End Date Chu Cruz PA-C [address] [address] PCP - General Physician Wedding Transportation Driver 07/07/17 Minna Chawla RN [address] [address] Gravure Printing Machinist Diabetes Education 06/30/18 Minna Chawla RN [address] [address] [employer] Printing Machinist Diabetes Education 06/30/18 Chu Cruz PA-C [address] [address] Assigned PCP 11/14/17 Luis Miguel Woodson MD Assigned Heart and Vascular Provider 08/30/20 06/26/22 Daisy Mejia NP [address] [id number] Assigned Neuroscience Provider 09/07/21 03/05/23 Aruna Mart [address] [facility] [place] [place], [place] [address] Gravure Printing Machinist 01/16/22 Chris Ricketts DPM [address] [facility] [address] [place], [place] [address] Assigned Musculoskeletal Provider 01/11/22 12/11/22 Chris Ricketts DPM [address] [facility] [place] [place] [address] Assigned Surgical Provider 12/12/22 02/28/24 Clem Maynard MD [address] [place] [phone] Cardiovascular Disease 01/07/23 Clem Maynard MD [address] [place] [phone] Assigned Heart and Vascular Provider 01/16/23 07/30/24 documented as of this encounter
--- OUTSIDE RECORDS SUMMARY | 2024-12-22 16:01 | XMS_ITS | Encounter Summary ---
Author Organization [facility] Address [address] [place] [address] Care Team Providers Care Protective Signal Operations Supervisor Name Role Phone Maggie Gallardo P.ANavdeep-Janes. Primary Care Provid er Reason for Visit * Reason Onset Date Comments PandaDoc Form 12/08/2024 Jenifer order [id number] Encounter Details Date Type Department Care Team (Late st Contact Info) Description 12/08/2024 Clinical Communication Department of Family Medicine, [facility], in [place], [place] [address] [place] [address] Maggie Gallardo, P.A.-C. [address] [place] [phone] PandaDoc Form (Jenifer order [id number]) Social History Tobacco Use Types Packs/Day Years Used Date Smoking Tobacco: Never Smokeless Tobacco: Never Alcohol Use Standard Drinks/Week Comments Not Currently 0 (1 standard drink = 0.6 oz pur e alcohol) [facility] Utilities Answer Date Recorded In the past 12 months has e [employer], gas, oil, or water [employer] threatened to shut off services in your [...] your living situation today? I have a [facility] place to live 10/30/2024 Comments Unknown Sex and Gender Information Value Date Recorded Sex Assigned at Not on file Legal Sex Female 6:45 PM CDT Gender Identity Not on file Sexual Orientation Not on file documented as of this encounter Miscellaneous Notes * Telephone Encounter - David Serrano - 12/11/2024 8:42 AM CST Sent back to facility informing them the order has been declined per provider. O INTERFERENCE INVESTIGATOR * Telephone Encounter - David Serrano - 12/08/2024 4:05 PM CST Form was routed to Maggie Gallardo P.A.-C. for electronic review/signature. INSERT OPERATOR: [facility] PHONE NUMBER: [phone] INFO REQUESTED: Order [id number] INSTRUCTIONS: Fax information to [phone] O INTERFERENCE INVESTIGATOR documented in this encounter Plan of Treatment Not on file documented as of this encounter Visit Diagnoses Not on filedocumented in this encounter Care Teams Protective Signal Operations Supervisor Relationship Specialty Start Date End Date Maggie Gallardo P.A.-C. [address] [place] [address] PCP - General Family Medicine 11/14/24 documented as of this encounter
--- OUTSIDE RECORDS SUMMARY | 2024-12-22 16:01 | XMS_ITS | Encounter Summary ---
Author Organization [facility] Address [address] [place] [address] Care Team Providers Care Biomedical Analytical Scientist Name Role Phone Maggie Gallardo P.A.-C. Primary Care Provid er Encounter Details Date Type Department Care Team (Late st Contact Info) Description 12/13/2024 Clinical Communication Department of Family Medicine, [facility], in [place], [place] [address] [place] [address] Maggie Gallardo P.A.-C. [address] [place] [address] Social History Tobacco Use Types Packs/Day Years Used Date Smoking Tobacco: Never Smokeless Tobacco: Never Alcohol Use Standard Drinks/Week Comments Not Currently 0 (1 standard drink = 0.6 oz pur e alcohol) [facility] Utilities Answer Date Recorded In the past 12 months has [facility] [employer], gas, oil, or water [employer] threatened to shut off services in [...] your living situation today? I have a [facility] place to live 10/30/2024 Comments Unknown Sex and Gender Information Value Date Recorded Sex Assigned at Not on file Legal Sex Female 6:45 PM CDT Gender Identity Not on file Sexual Orientation Not on file documented as of this encounter Plan of Treatment Not on file documented as of this encounter Visit Diagnoses Not on filedocumented in this encounter Care Teams Biomedical Analytical Scientist Relationship Specialty Start Date End Date Maggie Gallardo P.A.-C. [address] [place] [address] PCP - General Family Medicine 11/14/24 documented as of this encounter
--- OUTSIDE RECORDS SUMMARY | 2024-12-22 16:02 | XMS_ITS | Encounter Summary ---
Author Organization [facility] [place] Address [facility] [place] [address] Care Team Providers Care Grain Shoveler Name Role Phone Leti Traylor MD Primary Care Provider [phone] Chu Cruz PA-C Primary Care Provider Minna Chawla RN Unavailable Unavailable Minna Chawla RN Unavailable Unavailable Chu Cruz PA-C Unavailable [phone] Chu Cruz PA-C Unavailable [phone] Lisa Riggs RN Unavailable [phone] Dario Potter MD Unavailable [phone] Luis Miguel Woodson MD Unavailable Unavailable Matheus Medina MD Unavailable [phone] Daisy Mejia NP Unavailable Aruna Mart Unavailable [phone] Chris Ricketts DPM Unavailable [phone] Chris Ricketts DPM Unavailable [phone] Clem Maynard MD Unavailable [phone] Clem Maynard MD Unavailable [phone] Reason for Visit * Reason Comments Medication Refill Amiodarone Encounter Details Date Type Department Care Team (Late st Contact Info) Description 01/14/2017 Refill [facility] [address] [facility] [address] [place] [address] Leti Traylor MD [facility] [address] [place] [address] Medication Refill (Amiodarone) Social History Tobacco Use Types Packs/Day Years Used Date Smoking Tobacco: Former Alcohol Use Standard Drinks/Week Comments Yes 0 (1 standard drink = 0.6 oz pur e alcohol) rarely Comments No Sex and Gender Information Value Date Recorded Sex Assigned at Female 01/14/2021 7:41 PM PROOF PLATE MAKER Legal Sex Female 6:11 PM CDT Gender Identity Female 01/14/2021 7:41 PM PROOF PLATE MAKER Sexual Orientation Straight 01/14/2021 7: 41 PM PROOF PLATE MAKER documented as of this encounter Miscellaneous Notes * Telephone Encounter - Mariann Oliveira RN - 01/18/2017 8:08 AM CDT Routing refill request to provider for review/approval because: Drug not on the [facility] refill protocol A break in medication, should have completed medication 12/13/2016 Mariann Oliveira RN * Telephone Encounter - Gregorio Hutchinson - 01/14/2017 1:53 PM CST Amiodarone Last Written Prescription Date: 11/12/2016 Last Fill Quantity: 30, # refills: 0 Last Office Visit with [facility], [facility] or [facility] prescribing provider: 11/12/2016 Lab Results Component Value Date WBC 5.9 10/26/2016 Lab Results Component Value Date RBC 4.34 10/26/2016 Lab Results Component Value Date HGB 12.5 10/26/2016 Lab Results Component Value Date HCT 37.1 10/26/2016 No components found for: MCT Lab Results Component Value Date MCV 86 10/26/2016 Lab Results Component Value Date MCH 28.8 10/26/2016 Lab Results Component Value Date MCHC 33.7 10/26/2016 Lab Results Component Value Date RDW 13.6 10/26/2016 Lab Results Component Value Date PLT 173 10/26/2016 Lab Results Component Value Date AST 10 09/22/2016 Lab Results Component Value Date ALT 22 09/22/2016 Creatinine Date Value Ref Range Status 11/12/2016 1.48 (H) 0.52 - 1.04 mg/dL Final Gregorio Hutchinson MA January 14, 2017 F PLATE MAKER documented in this encounter Plan of Treatment Not on file documented as of this encounter Visit Diagnoses Diagnosis Atrial fibrillation with RVR (H) Atrial fibrillation documented in this encounter Additional Health Concerns Infection Onset Date Last Indicated Resolved Time Rule Out COVID-19 09/26/2020 09/26/2020 09/27/2020 5:31 PM PROOF PLATE MAKER Rule Out COVID-19 05/28/2022 05/28/2022 05/28/2022 8:56 PM CDT Rule Out COVID-19 07/03/2022 07/03/2022 07/03/2022 6:55 PM CDT Assessment Noted Time PHQ-9 Depression Total Score: 3 11/13/19 17 7:08 AM PROOF PLATE MAKER documented as of this encounter Care Teams Grain Shoveler Relationship Specialty Start Date End Date Leti Traylor MD PCP - General Family Practice 07/20/16 06/02/17 Chu Cruz PA-C [address] [address] PCP - General Physician Bosom Presser 07/07/17 Chu Cruz PA-C [address] [address] PCP - Assigned PCP 11/14/17 01/10/19 Minna Chawla RN [address] [address] Flight Crew Ordnanceman Diabetes Education 06/30/18 Minna Chawla RN [address] [address] Flight Crew Ordnanceman Diabetes Education 06/30/18 Chu Cruz PA-C [address] [address] Assigned PCP 11/14/17 Lisa Riggs RN [facility] Primary [facility] - CC 06/14/2006/16 Dario Potter MD [address] [place] [address] Assigned Musculoskeletal Provider 08/30/20 01/10/22 Luis Miguel Woodson MD Assigned Heart and Vascular Provider 08/30/20 06/26/22 Matheus Medina MD [address] [place] [address] [place] [address] Assigned Surgical Provider 08/30/20 11/30/20 Daisy Mejia NP [address] [address] Assigned Neuroscience Provider 09/07/21 03/05/23 Aruna Mart [address] [place] [address] Flight Crew Ordnanceman 01/16/22 Chris Ricketts DPM [address] [place] [address] [place] [address] Assigned Musculoskeletal Provider 01/11/22 12/11/22 Chris Ricketts DPM [address] [facility] [place] [address] Assigned Surgical Provider 12/12/22 02/28/24 Clem Maynard MD [address] [place] [phone] Cardiovascular Disease 01/07/23 Clem Maynard MD [address] [place] [phone] Assigned Heart and Vascular Provider 01/16/23 07/30/24 documented as of this encounter
--- OUTSIDE RECORDS SUMMARY | 2024-12-22 16:02 | XMS_ITS | Encounter Summary ---
Author Organization [place] Address [facility] [place] [address] Care Team Providers Care Special Warfare Operator Name Role Phone Chu Cruz PA-C Primary Care Provider Minna Chawla RN Unavailable Unavailable Minna Chawla RN Unavailable Unavailable Chu Cruz PA-C Unavailable [phone] Daisy Mejia SITE SUPERVISING TECHNICAL OPERATOR Unavailable Aruna Mart Unavailable Chris Ricketts DPM Unavailable [phone] Chris Ricketts DPM Unavailable Clem Maynard MD Unavailable Clem Maynard MD Unavailable [phone] Encounter Details Date Type Department Care Team (Late st Contact Info) Description 07/24/2022 [facility] [address] [facility] [address] [place] [address] Gabbie Shankar, RN Social History Tobacco Use Types Packs/Day Years Used Date Smoking Tobacco: Former Smokeless Tobacco: Never Comments:only 6 months use Alcohol Use Standard Drinks/Week Comments Yes 0 (1 standard drink = 0.6 oz pur e alcohol) rarely PHQ-2 Answer Date Recorded PHQ-2 Score 1 03/26/2022 Comments No Sex and Gender Information Value Date Recorded Sex Assigned at Female 01/14/2021 7:41 PM STATE INSPECTOR Legal Sex Female 6:11 PM CDT Gender Identity Female 01/14/2021 7:41 PM STATE INSPECTOR Sexual Orientation Straight 01/14/2021 7: 41 PM STATE INSPECTOR COVID-19 Exposure Response Date Recorded In the last 10 days, have yo u been in contact with someone who was confirmed or suspected to have Coronavirus/COVID-19? No / Unsure 07/16/2022 12:44 PM CDT documented as of this encounter Plan of Treatment Not on file documented as of this encounter Visit Diagnoses Not on filedocumented in this encounter Additional Health Concerns Assessment Noted Time PHQ-9 Depression Total Score: 3 03/26/20 22 8:15 AM CDT documented as of this encounter Care Teams Special Warfare Operator Relationship Specialty Start Date End Date hCu Cruz PA-C [address] [address] PCP - General Physician Grades 1 Thru 6 Visiting Teacher 07/07/17 Minna Chawla RN [address] [address] Insurance Loss Assessor Diabetes Education 06/30/18 Minna Chawla RN [address] [address] Insurance Loss Assessor Diabetes Education 06/30/18 Chu Cruz PA-C [address] [address] Assigned PCP 11/14/17 Daisy Mejia NP [address] [address] Assigned Neuroscience Provider 09/07/21 03/05/23 Aruna Mart [address] [place] [address] Insurance Loss Assessor 01/16/22 Chris Ricketts DPM [address] [facility] [address] [place], [place] [address] Assigned Musculoskeletal Provider 01/11/22 12/11/22 Chris Ricketts DPM [address] [facility] [address] [place], [place] [address] Assigned Surgical Provider 12/12/22 02/28/24 Clem Maynard MD [address] [phone] Cardiovascular Disease 01/07/23 Clem Maynard MD [address] [place] [phone] Assigned Heart and Vascular Provider 01/16/23 07/30/24 documented as of this encounter
--- OUTSIDE RECORDS SUMMARY | 2024-12-22 16:02 | XMS_ITS | Encounter Summary ---
Author Organization [facility] Address [address] [place] [address] Care Team Providers Care Loom Tuner Name Role Phone Chu Cruz PA-C Primary Care Provider Minna Chawla RN Unavailable Unavailable Minna Chawla RN Unavailable Unavailable Chu Cruz PA-C Unavailable [phone] Luis Miguel Woodson MD Unavailable Unavailable Daisy Mejia WEIGHT AND TEST BAR CLERK Unavailable [phone] Aruna Mart Unavailable [phone] Chris Ricketts DPM Unavailable [phone] Chris Ricketts DPM Unavailable [phone] Clem Maynard MD Unavailable [phone] Clem Maynard MD Unavailable [phone] Encounter Details Date Type Department Care Team (Late st Contact Info) Description 03/04/2022 [facility] [address] [id number] Stoney Mckinney, RN Social History Tobacco Use Types Packs/Day Years Used Date Smoking Tobacco: Former Smokeless Tobacco: Never Comments:only 6 months use Alcohol Use Standard Drinks/Week Comments Yes 0 (1 standard drink = 0.6 oz pur e alcohol) rarely PHQ-2 Answer Date Recorded PHQ-2 Score 2 08/15/2021 Comments No Sex and Gender Information Value Date Recorded Sex Assigned at Female 01/14/2021 7:41 PM TOLL GATE KEEPER Legal Sex Female 6:11 PM CDT Gender Identity Female 01/14/2021 7:41 PM TOLL GATE KEEPER Sexual Orientation Straight 01/14/2021 7: 41 PM TOLL GATE KEEPER COVID-19 Exposure Response Date Recorded In the last 10 days, have coleman u been in contact with someone who was confirmed or suspected to have Coronavirus/COVID-19? No / Unsure 03/06/2022 9:29 AM CDT documented as of this encounter [...] documented as of this encounter Care Teams Loom Tuner Relationship Specialty Start Date End Date Chu Cruz PA-C [address] [address] PCP - General Physician [place] 07/07/17 Minna Chawla RN [address] [address] Last Trimmer Diabetes Education 06/30/18 Minna Chawla RN [address] [address] Last [facility] Education 06/30/18 Chu Cruz PA-C [address] [address] Assigned PCP 11/14/17 Luis Miguel Woodson MD Assigned Heart and Vascular Provider 08/30/20 06/26/22 Daisy Mejia NP [address] [place] [id number] Assigned Neuroscience Provider 09/07/21 03/05/23 Aruna Mart [address] [facility] [place], [place] [address] Last Trimmer 01/16/22 Chris Ricketts DPM [address] [facility] [place] [address] Assigned Musculoskeletal Provider 01/11/22 12/11/22 Chris Ricketts DPM [address] [facility] [place] [address] Assigned Surgical Provider 12/12/22 02/28/24 Clem Maynard MD [address] [place] [id number] Cardiovascular Disease 01/07/23 Clem Maynard MD [address] [place] [id number] Assigned Heart and Vascular Provider 01/16/23 07/30/24 documented as of this encounter
--- OUTSIDE RECORDS SUMMARY | 2024-12-22 16:02 | XMS_ITS | Encounter Summary ---
Author Organization [facility] Address [address] [place] [id number] Care Team Providers Care Child Development Consultant Name Role Phone Elsewhere, Pcp Primary Care Provider Unavailabl e Reason for Visit * Reason Comments Fall Encounter Details Date Type Department Care Team (Latest Contact Info) Description 10/30/2024 9:11 AM SUPERVISOR [employer]ICATION [employer]SEMBLY - 11/07/2024 12:30 PM SUPERVISOR [employer]SEMBL[employer] Hospital Encounter [facility], [facility], Third Floor [address] [place] [phone] Andrés Lee P.A.-C. [address] [place] [phone] Melanie Guzman M.D., M.S. [address] [place] [phone] Dillan Riddle M.D. [address] [place] [phone] Fracture Sacrum Closed Initial (HCC) (Primary Dx); Fracture Lumbosacral Spine And Pelvis Closed Initial (HCC); Decline Functional Status [R53.81]; Urinary Tract Infection Site Not Specified Discharge Disposition: [facility] Social History Tobacco Use Types Packs/Day Years Used Date Smoking Tobacco: Never Smokeless Tobacco: Never Alcohol Use Standard Drinks/Week Comments Not Currently 0 (1 standard drink = 0.6 oz pur e alcohol) [facility] Utilities Answer Date Recorded In the past [...] your living situation today? I have a [facility] place to live 10/30/2024 Comments Unknown Sex and Gender Information Value Date Recorded Sex Assigned at Not on file Legal Sex Female 6:45 PM CDT Gender Identity Not on file Sexual Orientation Not on file documented as of this encounter Last Filed Vital Signs Vital Sign Reading Time Taken Comments Blood Pressure 131/71 11/07/2024 11:25 AM SUPERVIS[employer] Pulse 70 11/07/2024 11:25 AM SUPERVISOR [employer]SEMBL[employer] Temperature 36.7 C (98.1 F) 11/07/2024 11:25 AM SU[employer]VIS[employer]SEM[employer] Respiratory Rate 18 11/07/2024 11:25 AM SUPERVISOR [employer]ICATION [employer]SEMBL[employer] Oxygen Saturation 94% 11/07/2024 11:25 AM SUPERVISOR [employer]SEMBLY Inhaled Oxygen Concentration - - Weight 90.8 kg (200 lb 2.8 oz) 11/05/2024 8:57 A M [employer] Height 165 cm (5' 4.96) 10/31/2024 12:43 PM SUPERVISOR [employer]SEMBL[employer] Body Mass Index 33.35 10/31/2024 12:43 PM [employer] documented in this encounter Functional Status * Intimate Partner Violence Question Answer Date of Assessment Author Within the last year, have y ou been humiliated or emotionally abused in other ways by your partner or ex-partner? No 10/30/2024 4:06 PM [employer]SEMBL[employer] Pushpa Gentile, R.N. Within the last year, have y ou been afraid of your partner or ex-partner? No 10/30/2024 4:06 PM [employer]PER[employer]SEMBL[employer] Yamileth Gentile , R.N. Within the last year, have y ou been raped or forced to have any kind of sexual activity by your partner or ex-partner? No 10/30/2024 4:06 PM SUPERVIS[employer]ICATION [employer]SEMBLY Janey Gentile, R.N. Within the last year, have y ou been kicked, hit, slapped, or otherwise physically hurt by your partner or ex-partner? No 10/30/2024 4:06 PM SUPERVISOR [employer]SEMBL[employer] Janey Gentile, R.N. documented as of this encounter Discharge Summaries * Joshua Lafleur Jr., M.D. - 11/07/2024 11:21 AM CST DISCHARGE SUMMARY BRIEF OVERVIEW Hospital: [facility] Discharge Provider: Dillan Riddle M.D. Primary Team: [facility] Medicine 13 ([facility]) Primary Care Providers: Elsewhere, Pcp (General) No address on file Primary Care Provider Phone Number: None Primary Care Provider Fax Number: None Other Providers: None Admission Date: 10/30/2024 Discharge Date: 11/07/2024 PRINCIPAL DIAGNOSIS Fracture Sacrum Closed Initial (HCC) SECONDARY DIAGNOSES Principal Problem: Fracture Sacrum Closed Initial (HCC) Active Problems: Atrial Fibrillation Unspecified (HCC) Chronic Kidney Disease (CKD), Stage 3 Unspecified (HCC) Diabetes Mellitus Type 2 (HCC) Block Atrioventricular Complete (HCC) Hyperlipidemia Resolved Problems: * No resolved hospital problems. * DISCHARGE DISPOSITION [facility] [3] ACTIVE ISSUES REQUIRING FOLLOW UP Patient recommendations: Stop taking Jardiance and furosemide until follow up with your provider For pain management, take pregabalin 25mg in the am and 50mg at bedtime, tylenol 1000mg as needed every 6 hours, oxycodone as needed every 4 hrs, and diclofenac gel as needed up to 4 times daily. Continue oral cefdinir as prescribed, 1st dose 11/07 in the afternoon, daily until 11/09/2024. For PCP follow up: Patient developed NASIM and urinary retention that improved with holding Lasix and take encouraging oral intake; please obtain repeat function panel upon one week of discharge to ensure continued improvement Jardiance has also been held in the setting of acute kidney injury; resume as appropriate Assess volume status and consider short courses of furosemide. Patient does not seem to take this medication on a daily basis. complete a 5 day course of cefdinir with end of treatment 11/09/2024. Please follow up urine culture, if negative could discontinue antibiotics, if positive please follow up on susceptibilities and ensure adequate coverage She has a significant burden of opioid induced constipation. Please follow up on this. Final discharge regimen included lubiprostone, MiraLax, Senokot. ORTHOPEDIC TRAUMA SURGERY RECOMMENDATIONS: regarding your left sided pelvic fractures ACTIVITY MOBILITY - LEFT LOWER EXTREMITY: You should remain FULL weight bearing as tolerated status until advised by a physician - using gaitaid (walker) for ambulation assistance. You should keep the lower extremity elevated at or above the level of your heart to help decrease swelling and pain You are to keep your heel off the bed for extended periods to prevent pressure ulcers from forming You will continue with physical therapy and rehabilitation exercises as described in the hospital Range of motion: unrestricted motion at your left leg to prevent stiffness With your fracture pattern, we anticipate that you may have left sided groin pain and left sided low back pain - particularly with hip flexion movements ([id number], walking). This pain will improve with time as your fractures heal. We recommend using ice/heat (whichever feels best), topicals (lidocaine patches, Voltaren gel, etc), over the counter medications as needed for pain control. FOLLOW UP: You have a follow up appointment in the clinic: You will be seen in the Orthopedic Trauma Service clinic for follow up around 6 weeks (around earlyFebruary 2024) by Cindy Rodriguez PA-C for a follow up appointment to establish progress. You will have repeat xrays of your pelvis prior to the visit. Appointment info will be mailed/sent to you. This appointment will be coordinated with endocrinology for fragility fracture work up. If you have debilitating pain in your pelvis that is causing you to be bed bound status (unable to move out of bed due to pain) - please update Cindy Rodriguez PA-C (Dr. Darby's service) and we are happy to see you sooner than scheduled. Please report to [facility], Roddy Stevenson MD. If you have any questions or to make/verify appointments - you may contact Dr. Darby's service at [phone] during business hours For emergent problems - the service may be contacted by calling the [facility] cut in station operator [phone] (asking for Dr. Darby's service) OTHER INFORMATION BLOOD CLOT PROPHYLAXIS: Your home Eliquis was resumed during your hospitalization, continue to takethat as prescribed You have been instructed on the signs and symptoms of deep vein thrombosis. Including??? calf swelling, pain or redness, fevers, chills sweating You have been instructed on the signs and symptoms of pulmonary embolism, which is a blood clot in your lungs Including??? chest pain or shortness of breath Should you develop any of the following symptoms - you should visit at Emergency Room OPERATING A MOTOR VEHICLE: You should abstain from driving until pain is gone, you are full weight bearing, you are comfortable with wearing a seatbelt, you have been off of narcotics for at least 24hours NUTRITION: After sustaining a fracture - it is essential for you to have adequate nutritional intake for optimizing healing. Studies have shown drastic improved outcome for fracture patients with sufficient nutritional status It is recommended you take a multi-vitamin daily if you are not able to achieve recommended daily intake of essential nutrients A balanced diet with recommended daily servings of lean protein, vegetables and grains can help ensure adequate nutrition CALCIUM: It is recommended you obtain adequate calcium in your diet to aid in fracture healing and decrease your fracture risk in the future Recommended intake of calcium per day is 1000 - 1500 mg daily Important dietary sources include??? dairy products (milk, yogurt, cheese), dark green vegetables, canned fish with bones (but not fish fillets), nuts, fortified foods (juices, cereals, waffles, crackers, snack foods) Calcium supplement may be required if intake not possible through diet Optimally should be taken in doses of less than 500 or 600 mg at a time to maximize absorption (absorption decreases with greater calcium loads). Preferred time to take supplements is with meals - calcium is better absorbed in an acidic environment You should also take 1000 units of vitamin D per day in order to aid calcium absorption FACILITATING BONE HEALING: Nicotine inhibits bone healing - it is advised that you avoid tobacco products COMPLETELY! This includes nicotine replacement therapies (vaping, chewing tobacco, gums, patches, etc) IF YOU WERE DIAGNOSED OR HAVE A HISTORY OF OSTEOPOROSIS OSTEOPOROSIS: osteoporosis is decreased bone strength predisposing you to increased risk of fracture. The incidence of fracture is high in people with osteoporosis and increases with age Bone density is the best predictor of fracture - regular bone density studies are recommended Adequate calcium and vitamin D intake from diet and/or supplementation along with physical activityincrease bone density - which can reduce the risk of fractures Please see nutritional, calcium/vitamin D recommendations above. OUTPATIENT FOLLOW UP Scheduled Appointments 12/21/2024 9:30 AM DX [facility] RM [facility] Radiology 12/21/2024 10:00 AM END FRAGILITY FRACTURE PROVIDER 01 ROMB Endocrinology 12/21/2024 10:30 AM Cindy Rodriguez MPAS, P.A.-C. Orthopedic Surgery For appointment details refer to your Patient Appointment Guide. 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 Had a ground level fall when legs gave out, also hitting head - down for about 1 hour before calling fire dept. Then, able to ambulate some but next day unable to ambulate 2/2 LLE pain (from hip down) which is why she presented to the ED. In the ED, she remained hemodynamically stable except for hypertension with systolic up to 180s. Labs w/ thrombocytopenia, slight leukocytosis with neutrophilicpredominance, stable chronic kidney disease labs. Trauma imaging showed mildly displaced acute leftpelvis/sacrum fractures with associated intramuscular hematomas with no evidence of active bleeding. Orthopedic surgery consulted and recommended non-operative management w/ medicine admission for donnie n control and PT/OT. On the medicine service, pain managed w/ oxycodone, acetaminophen, and topicals. She worked with PT/OT and did require significant assistance with movement, requiring custodial placement following discharge. Of note, anticoagulation initially held 2/2 IM hematomas; hemoglobin subsequently neo ined stable and AC restarted on 11/01. Also of note, she had a mild Cr bump from a recent baseline of about 1.5 to a max of 2.06, w/ subsequent downtrend.[place] to be 2/2 venous congestion from holding diuresis. Improved w/ reinitiation of furosemide 40 mg PO daily. She had a subsequent increase in creatinine again, which was thought to be due to combination of urinary retention, urinary tract infection based on pyuria and suprapubic abdominal pain, and prerenal etiologies. This improved with scheduled voiding trials, intermittent catheterization, initiation of treatment for UTI, and intermittent fluid boluses. At the time of discharge the patient was spontaneously emptying her bladder and had improving renal parameters. She was discharged to SNF in stable condition on 11/06/2024. CONSULTS ORDERED DURING THIS ADMISSION IP CONSULT TO ORTHOPEDIC SURGERY IP CONSULT TO CARE MANAGEMENT IP CONSULT TO CARE MANAGEMENT IP CONSULT TO DIETITIAN IP CONSULT TO REPLANTING MACHINE OPERATOR WOUND CARE IP CONSULT TO DIABETES CONDITION AT DISCHARGE stable Discharge instructions were provided to the patient and caregiver(s). Total time spent in discharge services today: 20 minutes. Cosigned by Dillan Riddle M.D. at 11/07/2024 12:24 PM SUPERVISOR F[employer]RICATION AND ASSEMBLY [employer] Associated attestation - Dillan Riddle M.D. - 11/07/2024 12:24 PM SUPERVISOR [employer]RICATION [employer] ASSEMBLY I saw the patient on the day of discharge and agree with the discharge plans and disposition. documented in this encounter Discharge Instructions * Discharge Instructions* Daisy Bear APRN, C.N.P. - 10/31/2024 7:42 AM SUPERVISOR [employer]ABRICATION AND ASSEMBLY You were discharged from the [facility] Medicine 13 ([facility]) Service. Please identify this service name if you call with questions after hospitalization. BLOOD GLUCOSE MANAGEMENT: Monitor blood glucose four times daily before meals and at bedtime. Blood glucose goal is 120-180 mg/dL. Most recent A1c on record: Lab Results Component Value Date HGBA1C 8.8 (H) 11/02/2024 Please have provider at custodial facility review blood glucoses at least twice weekly, or earlier if blood glucose values are consistently out of goal range, to determine if changes to diabetes therapy are indicated. As Diabetes and Nutritional Education is important to your diabetes management, yearly follow up with a local Insurance Claims Analyst and Dietitian is recommended. Please check with your insurance company as diabetes education visits are commonly covered. Your primary care provider can provide referrals for education. [employer] * Patient Instructions* Awilda Harley M.S.N., R.N., RN-BC - 10/31/2024 11:53 AM SUPERVISOR FABRICATION AND ASSEMBLY The Senior LinkAge Line?? is a service of the [place] [employer] in partnership with [place]'s Area Agencies on Aging. It is a free service of the [facility] that connects older [place]ians and their families with the help they need. Call the Senior LinkAge Line?? at: 719.702.1970 M-F, 8am-4:30pm to connect with specialists that are available to assist you with your specific needsor check out their website at [email or web address] [employer] * Discharge Instr - Activity* Amisha Ochoa V. PRoddy. - 10/31/2024 2:42 PM SUPERVISOR [employer]RICATION [employer] ASSEMBLY Physical Therapy Discharge Summary MOBILITY RESTRICTIONS/PRECAUTIONS: Weight Bearing Status: weight bearing as tolerated left lower extremity Other Precautions: Fall risks RECOMMENDATIONS: Discharge Therapy Needs - PT: Ongoing skilled physical therapy Level of Care Needed - PT: Assistance with transfers (Comment), Assistance with walking and moving around the home, Assistance with bed mobility, Physical assistance needed Discharge information provided on 10/31/2024 Contact information: [facility], [address], [employer] * Attachments The following attachments cannot be sent through Care Everywhere. * Insulin Aspart, Recombinant (By injection) (Macedonian) * Polyethylene Glycol 3350 (By mouth) (Macedonian) * Diclofenac (On the skin) (Macedonian) documented in this encounter Medications at Time of Discharge apixaban (ELIQUIS) 2.5 mg tablet Take 2.5 mg by mouth 2 (two) times a day. 01/18/2023 diclofenac sodium (Voltaren) 1 % gel Apply 4 g topically 4 (four) times a day. Apply to hip and affected joints up to 4 times daily. 11/07/2024 empagliflozin (Jardiance) 10 mg tablet Take 1 tablet (10 mg total) by mouth daily before morning meal. Hold until follow up with PCP 11/07/2024 escitalopram (Lexapro) 5 mg tablet Take 5 mg by mouth daily. furosemide (Lasix) 40 mg tablet Take 1 tablet (40 mg total) by mouth daily. HOLD UNTIL FOLLOW UP WITH PCP 11/07/2024 insulin aspart U-100 (NovoLOG FlexPen) 100 unit/mL (3 mL) pen Inject 6 Units under the skin 3 (three) times a day with meals. Hold dose if not eating 11/07/2024 insulin glargine 100 unit/mL vial Inject 14 Units under the skin every morning. 11/07/2024 lubiprostone (AMITIZA) 24 mcg capsule TAKE 1 CAPSULE BY MOUTH TWICE DAILY WITH FOOD FOR 30 DAYS 12/21/2022 metoprolol tartrate (LOPRESSOR) 25 mg tablet TAKE 1/2 (ONE-HALF) TABLET BY MOUTH TWICE DAILY 01/18/2023 omeprazole (PriLOSEC) [address] capsule Take 40 mg by mouth 2 (two) times a day before morning and evening meals. 01/18/2023 pregabalin (Lyrica) 25 mg capsule Take 1 capsule (25 mg total) by mouth every morning for 14 days. 14 capsule 11/07/2024 pregabalin (Lyrica) 50 mg capsule Take 50 mg by mouth at bedtime. sennosides-docus ate sodium (SENOKOT-S) 8.6-50 mg per tablet Take 1 tablet by mouth 2 (two) times a day. 02/27/2022 amoxicillin (AmoxiL) 500 mg capsuleIndicatio ns:Urinary Tract Infection Site Not Specified Take 1 capsule (500 mg total) by mouth every 12 (twelve) hours for 5 days. 10 capsule 11/09/2024 5 cefdinir (Omnicef) 300 mg capsuleIndicatio ns:Urinary Tract Infection Site Not Specified Take 1 capsule (300 mg total) by mouth daily for 3 days. Last dose 11/09/2024 evening. 3 capsule 11/07/2024 12:57 PM SUPERVISOR F[employer]RICATION AND ASSEMBLY 11/07/2024 5 polyethylene glycol (Miralax) 17 gram powder packet Take 1 packet (17 g total) by mouth daily. Dissolve each 17 g dose in 240 mLs (8 ounces) of beverage. 11/07/2024 5 oxyCODONE (ROXICODONE) 10 mg IR tabletIndication s:Chronic Pain/Nonacute Pain Take 0.5 tablets (5 mg total) by mouth every 12 (twelve) hours as needed for pain or severe pain or score 7-10 of 10 Indication: Chronic Pain/Nonacute Pain. 14 tablet 01/29/2023 5 oxyCODONE (Roxicodone) 5 mg immediate release tabletIndication s:Acute Pain Take 1 tablet (5 mg total) by mouth every 4 (four) hours as needed for moderate pain or score 4-6 of 10 or severe pain or score 7-10 of 10 Indication: Acute Pain. 12 tablet 11/07/2024 12:57 PM SUPERVISOR FABRICATION AND ASSEMBLY 11/07/2024 documented as of this encounter Progress Notes * Alcira Bernal P.T., M.H.A. - 11/07/2024 12:30 PM CST 11/07/24 1555 Plan Plan Discontinue PT Patient discharged to another facility. Patient will continue skilled therapy services at next level of care. Goals set during this episode of care are discontinued. Adaptive equipment will be addressed at next level of care based on patient's needs at that time. Patient dismiss from hospital-basedPT services. Alcira Bernal P.T., M.H.A. [employer] * Daisy Bear APRN, C.N.P. - 11/07/2024 9:25 AM CST SUBJECTIVE HISTORY OF PRESENT ILLNESS LOS: 8 days DCS continues to follow this 89 y.o. female for blood glucose management admitted on 10/30/2024 forFracture Sacrum Closed Initial (HCC) PREADMISSION DIABETES THERAPY: Empagliflozin 10 mg daily in Am Lantus 28 units daily in Am Regular insulin 5 units 3 times daily with meals or snacks.. Patient is in no acute distress. Resting in bed. Reviewed hospital insulin regimen. Reviewed dismissal plan. Blood Glucose Results in Last 24 Hours: Recent Labs 11/07/24 0858 11/07/24 0456 11/06/24 2049 11/06/24 1718 11/06/24 1652 11/06/24 1243 GLUCOSEPOC 197 H -- 132 -- 149 H 203 H GLUCOSE -- 179 H -- 150 H -- -- Yesterday given: Lantus 14 units in the morning, NovoLog 1 unit for every 10 grams of carbohydratesconsumed with meals (5-7-6 units with respective meals), and NovoLog 6 units total for the correction of hyperglycemia. STEROIDS: None Current Diet Adult Diet Regular; 60 gm Carbs (per meal) starting at 10/30 1353 OBJECTIVE VITAL SIGNS Temperature: 36.4 ??C Resp Rate: 16 Blood Pressure: 116/50 BP Location: Left arm;Upper SpO2: 94 % Height: 165 cm Weight: 90.8 kg Body mass index is 33.35 kg/m??. DIAGNOSTICS Lab Results Component Value Date CREATININE 1.81 (H) 11/07/2024 Estimated Creatinine Clearance: 23.9 mL/min (A) (by C-G formula based on SCr of 1.81 mg/dL (H)). ASSESSMENT / PLAN #1 Diabetes mellitus, type 2, preadmission hyperglycemia, A1c pending. #2 Variable blood glucoses #3 CKD #4 Cardiomyopathy INPATIENT PLAN: - Blood Glucose Monitoring: four times daily before meals and bedtime - Glucose Goal: 140-180 mg/dL. - Basal: Lantus 14 units in the morning. - Mealtime: NovoLog 1 unit for every 10 grams of carbohydrates consumed with meals. - Correction Scale: NovoLog moderate correction scale three times a day. - DCS will evaluate and adjust insulin doses as indicated to achieve glycemic goal. - Last dose of Empagliflozin 10 mg was on 11/02/24. BMP on 11/07/24 showed an anion gap of 11 and bicarbonate of 25. Recommend daily BMP for 5 days from last dose of SGLT 2. ANTICIPATED DISMISSAL PLAN: Preadmission regimen with dose adjustment. Blood Glucose Frequency: four times daily or via continuous glucose monitor (CGM) Goal: 120-180 mg/dL, higher goal due to age and comorbidities Final DCS dismissal recommendations have been updated. No new prescriptions needed. Discussed above plan with the patient. Patient is alert and oriented and in agreement with the plan. DCS pager [phone] will continue to follow. Call primary service for diabetes concerns between 6:30 p.m. and 6:30 a.m. Primary service to contact tone cabinet assembler Endocrinology fellow via hospital cut in station operator for questions. [employer] * Awilda Harley M.S.N., R.N., RN-BC - 11/06/2024 12:40 PM CST SUBJECTIVE Discharge Planning - SNF A list of custodial facility options (that they geographically reside or requested) has been verbally reviewed with patient and daughter Jasmyne . Disclaimers: Financial disclosure provided informing patient of our ownership and financial relationship of the [facility], home health, and hospice agencies. Reviewed Medicare coverage and provided a list of options. The patient and daughter Jasmyne declined additional resources. Anticipated Needs Functional Status: bathing, dressing, toileting, transfers to/from bed, chair, etc., mobility, mealpreparation, and medication setup/administration Assistive Devices: Eyeglasses, Hearing aid(s), Grab bars - toilet, Other (Comment), Walker - four wheeled, Toilet riser, Tub/shower chair/bench (Electric Scooter, walk in bathtub) Services/Resources: N/A Modifications to home environment: None Transportation: stretcher van Anticipated discharge destination: SNF OBJECTIVE Patient is admitted in [address] - Room 196 ASSESSMENT / PLAN Assessment Those noted above appear to have insight into the patient's needs at this time and are planning appropriately for discharge needs. They report agreement with the below plan with no further questions at this time. Patient and daughter Jasmyne are agreeable with the plan as outlined below. Plan The patient is being prepared to discharge on 11/07/2024 if medically ready for transfer. Patient needs to arrive to the facility by 4:00 PM at the latest. COVID swab is NOT needed for admission. Contact Remediation Technician if time needs to be changed. Transportation has been arranged with [facility] [employer] ([phone]) for Wednesday11/07/24 at 12:30 PM. Ride kali will cost $296 and has been paid by family. [facility] [employer] will meet the patient in their room. Destination - Admitted Since 10/30/2024 Service Provider Services Address Phone Fax Patient Preferred [facility] at [address] [phone] -- Contact: intake Transportation oxygen: No oxygen needed. NURSING: - Complete documentation in the Discharge Navigator including Nursing Report Info and Facility/NextLevel of Care Info. - Contact facility to give report on morning of discharge. - Send After Visit Summary and required packet of dismissal information with patient, including advance directive. Fax this information to the facility prior to discharge. PRIMARY SERVICE: - Provider to Provider call is not required. - Provide written prescriptions for all narcotics. After Visit Summary to Include: - All discharge medications include dosage, times for administration, diagnosis, and stop date. - Ongoing care - wound care, infection precautions and phone numbers to call. Remediation Technician : - Pre-admission screen has been completed. Confirmation is: [id number] Level of Care: Based on the information provided, it appears this person meets level of care for purposes of MA payment. OBRA: It appears this person does not need an OBRA Level II assessment. - Will continue to follow. Georgi Kimbrough, RSugar, RN-BC 11/06/2024 [employer] * Dillan Riddle M.D. - 11/06/2024 12:37 PM CST T Medicine 13 ([facility]) Supervisory Progress Note I saw and evaluated the patient, participating in the lee portions of the service. I jointly developed the plan of care as outlined in senior internal medicine resident Dr. Joshua Lafleur's documentation from today with the following comments: Hayde Fong is an 89-year-old woman admitted after a mechanical ground level fall which resultedin left pelvic and sacral fractures with associated intramuscular hematoma, without active extravasation. The hospitalization has been complicated by NASIM, UTI, urinary retention and increased debility. # Sacral and pubic ramus fractures with associated acute pain # Intramuscular hematoma without active extravasation and stable hemoglobin # Chronic pain on opioid therapy # Opioid induced constipation # Acute kidney injury # Urinary tract infection # Non-ischemic cardiomyopathy # Type 2 diabetes mellitus # Atrial fibrillation on apixaban # Additional comorbidities as detailed in the Medicine 13 team's notes Although creatinine has essentially plateaued, NASIM appears worse based on cystatin C, and there hasbeen ongoing concern regarding low urine output. She received 500 cc IVFs earlier today and will closely monitor her response. The cause for her NASIM is not entirely clear though may be related to some degree of obstructive nephropathy, possible prerenal component and venous congestion. Suspect urinary retention is due to combination of opioids, pain and inactivity and appears to be improving though will continue bladder scans and I/O as needed. Bladder/kidney ultrasound was unremarkable yesterday, although the left kidney was unable to be fully visualized. Urinalysis does not demonstrate an ac tive sediment but is suggestive of a UTI thus she was started on ceftriaxone with urine culture pending. Repeat labs planned for this afternoon. We are hopeful she may be able to dismiss to a SNF tomorrow noting patient also strongly desires to get out of the hospital. She will require repeat labs within a short timeframe. Please refer to [facility] Medicine 13 ([facility]) team's note from today for additional details about our team's plan of care. [employer] * Joshua Lafleur Jr., M.D. - 11/06/2024 12:14 PM CST [facility] Medicine 13 ([facility]) PROGRESS NOTE SUBJECTIVE No events overnight. Creatinine appears to be downtrending, but now stabilized. Total urine output 550, mostly through straight catheterization. She endorses feeling thirsty and has dry mucous membranes. Last BM 11/04. No new complaints, but frustrated about her longer hospital stay. Total oxycodone requirement 15 mg in the last 24 hours. OBJECTIVE VITAL SIGNS Temperature: [36.3 ??C-36.8 ??C] 36.4 ??C Resp Rate: [14-19] 14 Blood Pressure: (101-122)/(48-61) 122/61 SpO2: [92 %-97 %] 94 % Pulse Rate: [64-75] 64 PHYSICAL EXAM General: Well appearing female in bed in no acute distress. HENT: dry mucous membranes Cardiac: Regular rate and rhythm. 3/6 systolic murmur over RUSB. Mild pitting edema up to shins. Pulm: Clear to auscultation. Normal work of breathing on room air. Extremities: Warm, appear well perfused. No overlying skin changes. Mental: Alert and appropriate with conversation. DIAGNOSTICS I have reviewed relevant interval diagnostics. 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 Re: Fractures - managed non-operatively. PT/OT. She needs SNF placement based on PT eval 10/31. CM consulted and patient has been accepted to a facility with tentative discharge plan 11/07. Re: Pain - multimodal with Tylenol, pregabalin, back to oxycodone due to lower effect with Dilaudid. This may be reconsidered due to her worsening renal function. So far she has tolerated this well with no evidence of accumulation. Re: IM hematoma - apixaban restarted; no overlying skin changes or new/worsening pain to suggest enlargement; Hgb stable Re: NASIM - seems mostly due to volume depletion after being on furosemide for a few days with combination of possible UTI and urinary retention. For UTI, she has been started on ceftriaxone and we areawaiting on urine culture. For retention, scheduled bladder scand, voiding trials, and intermittent catheterization as needed. For NASIM, hold furosemide and administer fluid bolus with recheck BMP in the pm. # Left superior and inferior pubic ramus fractures # Left sacral ala fracture # LLE pain and difficulty ambulating ISO above # Chronic back pain on chronic opioids w/ spinal stim in place (currently off) # Opioid induced constipation Non-operative management Pain regimen: Continue home oxycodone 5 mg q.4 hours p.r.n. Scheduled tylenol Topicals Pregabalin 50 mg qHs and 25 mg Leena PT/OT CM Consult Opioid induced constipation: Continue [employer]IG[employer]UP[employer] INTERVIEWER lubiprostone 24 mcg BID Senokot-S 2 tabs BID MiraLax daily ORS Recs: Weight bearing: full WBAT LLE, gait aid (walker) for ambulatory assistance/fall prevention Immobilization: none required for pelvic ring injury ROM: unrestricted motion left lower extremity. With her fracture pattern, we would anticipate left sided groin pain and left low back pain, particularly with hip flexion motions ([id number], walking, etc). This will improve with time as her fractures continue to heal PT/OT Advance in activities as tolerated FOLLOW UP: approximately 6 weeks with repeat xrays pelvis prior, [facility] endocrinology consultation forfragility fracture work up. # Oliguric NASIM - recurrent # pyuria # urinary retention # HFimpEF Hold furosemide 40 mg Scheduled voiding trial Scheduled bladder scan with intermittent catheterization as needed BMP bid Fluid bolus Ceftriaxone day 12/13 Follow up results of urine culture # Insulin-dependent T2DM poorly controlled (A1C 13.7% 01/2024) Jardiance held Insulin: DCS BMP to monitor for occurrence of euglycemic DKA; no signs thus far; last Jardiance dose 11/02 # Atrial Fibrillation on Eliquis # Intramuscular hematoma associated w/ fractures; no active hemorrhage Hgb stable; restarted apixaban 2.5 mg BID 11/01 PM Continue metoprolol tartrate # Insomnia Nightly melatonin Chronic conditions/meds: # Depression Continue escitalopram, PPI Baseline Mobility: Walks w/ walker Diet: general diet Tubes/lines: PIV VTE prophylaxis: Home Eliquis Disposition: SNF Surrogate Decision Maker: Jasmyne Berger Stable to discharge criteria (not met): Functional status Plan discussed with [facility] Medicine 13 ([facility]) Head Baggage Porter, Dillan Richmond M.D., who was present during lee portions of the evaluation today. Please page the [facility] Medicine 13 ([facility]) service pager with any questions. 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 Baseline 1.3-1.5 VTE Prophylaxis: [employer] O[employer]UPANCY INTERVIEWER apixaban ASSESSMENT / PLAN Pelvic/sacral fracture. Non-op management. Pain control with acetaminophen and oxycodone. BR scheduled Recurrent falls. Pregabalin dose reduced to 25 mg qHS. Given her advanced age and reduce renal function, hydromorphone may be a safer opioid (than oxycodone) with less accumulation NASIM. Holding home empagliflozin Consider changing oxycodone to hydromorphone as in #2. Atrial fibrillation. Continuing metoprolol. Resumed apixaban. T2DM. Insulin glargine currently dosed at 14 units daily (home dose 28 units daily). Pt had been using over the counter regular inulin 5 units at meal times, currently on moderate correction scale and carbohydrate count. BG mostly within goal of <180s. UTI - started on ceftriaxone 2g IV q24h (D1 11/05). Urine culture pending. Eleuterio Donahue, PharmNavdeepD., R.Ph., BCPS [phone] [employer] * Gabriella Freeman M.A., O.T., M.B.A. - 11/06/2024 10:58 AM CST Occupational Therapy Acute Hospital Inpatient Treatment SUBJECTIVE Patient's Name: Hayde Fong Referring/Attending Provider: Dillan Riddle M.D. Reason for Referral: Occupational Therapy Evaluation and Treatment History of Present Illness: Hayde Fong is a 89 y.o. female who was admitted to [facility] in [place] on 10/30/2024 for Fracture Sacrum Closed Initial (HCC) [S32.10XA] Fracture Lumbosacral Spine And Pelvis Closed Initial (HCC) [S32.9XXA]. Precautions Weight Bearing Status: weight bearing as tolerated left lower extremity Other Precautions: Fall risks Pain Assessment: Pain Ratin/10 on a 0-10 point scale, Location: left leg, from hip to foot. The patient reports the pain jumps to 10/10 when standing on it. She declines any opportunity to progress to taking steps due to perceived pain that would be more than 10/10. Patient states level of pain is acceptable or tolerable to participate in therapy Pain intervention(s) used to address pain greater than 4: Subjective Comments: Agreeable to therapy session. The patient reports frustration that she may not discharge today and is concerned that the rehabilitation facility that had accepted her may give up my room. OBJECTIVE Vital Signs: Vitals stable per chart review. Outcome Measures: [facility] Inpatient Short Form: Putting on and taking off regular lower body clothing?: A lot Putting on and taking off regular upper body clothing?: A Little Taking care of personal grooming such as brushing teeth?: A Little Bathing (including washing, rinsing, drying)?: A lot Toileting, which includes using toilet, bedpan, or urinal?: A lot Eating meals?: None Daily Activities Raw Score (max 24): 16 Daily Activities Standardized Score: 35.96 Interpretation: Based on scoring guidelines using the raw score value: Those going to home had an average score at or above 18 Those going to facility had an average score at or below 17 Clinicians answer the [facility] Inpatient Short Form based on observed patient activity and/or clinical judgment (patient can be scored without physically performing each activity). Cognition: Will further assess and monitor as warranted The patient was able to voice her wants and needs appropriately, as well provide detailed rationaleon her concerns with delaying her hospital discharge. She also mentioned that her brain is fuzzy when she couldn't recall the breed of cat or dog that she owns. She did know the dog breeds that [facility] owned. Therapeutic Interventions: ACTIVITIES OF DAILY LIVING: GROOMING - Assist Level: supervision/set-up - Patient Location: supported in [facility] while in front of the sink - Activity: brushing teeth - regular or soft brush, combing hair, washing face - Therapist Delivery: assessed, assisted, facilitated - Assist/Cues Provided: verbal for initiation - Tolerated: over 11 minutes supported in the joy stedy - Assist to open new toothpaste tube and hand over items that were not in reach of the patient. LOWER BODY DRESSING - Assist Level: maximal assist - Patient Location: edge of bed - LB Dressing Item: socks - Therapist Delivery: assessed, assisted - Assist/Cues Provided: verbal for sequencing - The patient reported 10/10 LLE pain with movement. FEEDING - Assist Level: independent - Patient Location: long sitting - Activity: open containers, bring food to mouth, bring drink to mouth, positioning for self-feeding - Therapist Delivery: assessed - Assist/Cues Provided: none for none - Patient was completing breakfast as therapist arrived in room. MEDICAL EDUCATION: Reviewed recommendations for the patient to progress for dismissal, as outlined by her medical team: more time in the chair, increase hydration, increase self urination (no need for catheterization). BED MOBILITY: SUPINE TO SIT - Assist Level: stand by assist - Device: bed rail, head of bed elevated - Therapist Delivery: assessed, facilitated - Assist/Cues Provided: verbal for technique, to scoot to the edge of bed - patient reported 10/10 pain with movement FUNCTIONAL TRANSFERS: SIT<>STAND - Assist Level: minimal assist - Device: joy stedy and gait belt - Surface: bed - Therapist Delivery: assessed, assisted, facilitated, instructed - Assist/Cues Provided: verbal and tactile for proper hand placement, safety RELAXATION/COPING: Education and guided practice with: - Identification and prioritization of patient's stressors - The patient had been informed by her medical team that she would not be discharged from the hospital to a custodial facility today. The patient was very concerned about losing the bed at a specific facility. Therapist validated concerns and provided encouragement and positive engagement. Education/Training Provided: Functional Transfers: - Provided instruction and cues during functional sit to/from stand transfers, including body alignment to surface, appropriate hand placement, and optimal placement of extremities to optimize safetyand technique. Team Communication: The patient's status was discussed and coordination of care occurred with RN Patient was left in bedside chair at end of session with call light in reach, all needs met and questions answered. Assessment Discharge Therapy Needs - OT: Ongoing skilled occupational therapy (pending hospital progress and available support upon discharge) If skilled therapy is recommended, skilled therapy can include occupational therapy provided in home health, outpatient or post-acute facility. The location of these services is determined by patient's care team in partnership with patient/family. Level of Care Needed - OT: Assistance with toilet/shower transfers, Assistance with medication set up/administration, Assistance with meal preparation, Assistance with shopping, Assistance with dressing, Assistance with transportation, Assistance with housekeeping, Assistance with financial manageme nt, Assistance with showering/bathing, Assistance with toileting, Cognitive assistance needed, Physical assistance needed Barriers to Discharge Home: Fall risk, Limited caregiver support, Current functional status Barriers to Discharge Comments: Lives alone Recommended Adaptive Equipment - OT: Other (Comment) (ongoing assessment) Clinical Impression: The patient was seen for skilled occupational therapy intervention to address independence in self cares, functional transfers, and recommended hospital activity and tasks. The patient was pleasant and participatory, but continues to report high levels of left lower extremity pain which impact progression of ambulation. The patient was able to transfer to standing, and then remain within the joy stedy device for sink-side grooming, but declined any standing/mobilization with a front wheeled walker due to pain. She is completing grooming with setup, but continues torequire max assist for lower body dressing. Skilled Occupational therapy treatment during this hospitalization is medically necessary to provide graded activities to promote patient's functional return, safety and quality of life in line with established rehabilitation goals. In-Hospital Activity and Mobility Recommendations: - Transfer into chair 3x/day with assist x 1 and joy stedy or front wheeled walker. - Eat ALL meals in chair - Active engagement in daily self-care routine (oral cares, face washing, combing hair) - Maintain typical day/night routine and incorporate sleep hygiene strategies Plan OT Plan Comments: Next Session: progress functional mobility with FWW (pivot vs short distance ambulation), toileting, standing tolerance when not in the joy stedy; med management task Functional Goals: OT Goal #1: Patient will dress lower body with modified independence using adaptive equipment as needed for safety. OT Goal #1 Status: Slowly progressing OT Goal #2: Patient will complete self-cares standing at the sink for 3-5 minutes with supervision to improve activity tolerance for self-cares prior to discharge. OT Goal #2 Status: Slowly progressing OT Goal #3: Patient will transfer on/off toilet, manage nicole care, and clothing with minimal assistance in preparation for discharge. OT Goal #3 Status: Slowly progressing OT Goal #4: Patient and family will demonstrate understanding of necessary durable medical equipment, adaptive equipment, and physical and cognitive level of assistance in activities of daily living/mobility for safe dismissal planning. OT Goal #4 Status: Ongoing Progress: Progressing toward goals Rehab potential: Ms. Fong has good potential to achieve established occupational therapy goals within the time frame outlined below. OT Frequency: OT Amount: 1 visit per day OT Frequency: 5 times per week OT Inpatient Duration : Until goals are met or hospital discharge Requires Inpatient OT Follow-Up: Yes OT - Next Inpatient Appointment: 11/07/24 Plan: Continue with current plan Treatment interventions may include: Treatment Interventions: Therapeutic exercise, Therapeutic functional activity, Self-care/home management, Cognitive skills training Occupational Therapy Attestation Statement: Patient agrees with the plan of care and goals. Billing: Time Spent with Patient Therapeutic Interventions Home Management Training (min): 48 min Time Tracking Total Timed Units (min): 48 min Total Treatment Time (min): 48 min Savannah Freeman M.A., Maggie, M.B.A. [employer] * Melanie Guzman M.D., M.S. - 11/05/2024 3:05 PM CST I saw and evaluated Hayde Fong on rounds today with our medicine team, and I agree with the findings and plan as documented in today's progress note by Dr. Lafleur, with the following comments: Hayde Fong is an 89-year-old female admitted after a mechanical ground level fall which resulted in left pelvic and sacral fractures with associated intramuscular hematoma without active extravasation. Medical history is significant for AFib (on Eliquis), nonischemic cardiomyopathy, type 2 diabetes with neuropathy and nephropathy, CKD 3, complete heart block s/p PPM. She is independently dwelling, and mobility significantly limited by pain. Her fractures are being managed nonoperatively. Pain better controlled. Apixaban was resumed on evening of 11/01 and H/H stable without new symptoms. Developed NASIM on 11/01 which was suspected to be secondary to venous congestion and improved through 11/03. Unfortunately labs obtained last evening showed a bump in creatinine from 1.75 to 2.45, [id number]. Urine output has been low as well, despite adequate oral fluid intake. Low suspicion for prerenal azotemia. She was bladder scanned for a high volume, therefore considering urinary retention in the setting of opioid use and poor mobility due to pain. She also complained of some suprapubic pain which is new for which urine studies are being obtained to evaluate for UTI. Bladder scans and I/O caths have been scheduled. PT/OT following. She has been accepted to a SNF for tomorrow, but this will be pending improvement in her renal function and urine output . Please refer to Dr. Lafleur's note dated today for additional details about our team's plan of care. [employer] * Joshua Lafleur Jr., M.D. - 11/05/2024 6:51 AM CST T Medicine 13 ([facility]) PROGRESS NOTE SUBJECTIVE No events overnight. Patient refusing therapy due to pain. Vitally stable, regular bowel movements.Urine output 600 cc overall net positive 200. Noted increasing creatinine from 1.75-2.45. Eating 100% of meals. Complaining of suprapubic tenderness. No urine output recorded since 10pm yesterday. Glucose controlled under 226. OBJECTIVE VITAL SIGNS Temperature: [36.4 ??C-36.6 ??C] 36.5 ??C Resp Rate: [12-18] 16 Blood Pressure: (122-131)/(54-65) 131/65 SpO2: [93 %-95 %] 93 % Pulse Rate: [61-68] 61 PHYSICAL EXAM General: Well appearing female in bed in no acute distress. Cardiac: Regular rate and rhythm. 3/6 systolic murmur over RUSB. 1+ pitting edema up to shins. Pulm: Clear to auscultation. Normal work of breathing on room air. Extremities: Warm, dry, appear well perfused. No overlying skin changes. Mental: Alert and appropriate with conversation. DIAGNOSTICS I have reviewed relevant interval diagnostics. 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 Re: Fractures - managed non-operatively. PT/OT. She needs SNF placement based on PT eval 10/31. CM consulted and patient has been accepted to a facility with tentative discharge plan 11/06. Re: Pain - multimodal with Tylenol, pregabalin, switching to hydromorphone p.r.n. from oxycodone due to kidney injury. Re: IM hematoma - apixaban restarted; no overlying skin changes or new/worsening pain to suggest enlargement; Hgb stable Re: NASIM - has a bump in creatinine this morning. Reportedly no urine output for the last 12 hours. She continue to have appropriate oral intake and no recent introduction of hypertensive medications.Geting renal US, UA, repeat BMP with cystatin-c, and straight catheterization. # Left superior and inferior pubic ramus fractures # Left sacral ala fracture # LLE pain and difficulty ambulating ISO above # Chronic back pain on chronic opioids w/ spinal stim in place (currently off) # Opioid induced constipation Non-operative management Pain regimen: will switch Dilaudid 1 mg every 4 hour p.r.n. 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 With her fracture pattern, we would anticipate left sided groin pain and left low back pain, particularly with hip flexion motions (tym-qy-[id number], walking, etc). This will improve with time as her fractures continue to heal PT/OT Advance in activities as tolerated FOLLOW UP: approximately 6 weeks with repeat xrays pelvis prior, wit endocrinology consultation forfragility fracture work up. 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 40 mg daily until obstruction ruled out Work up as detailed above BMP bid # Insulin-dependent T2DM poorly controlled (A1C 13.7% 01/2024) Jardiance held Insulin: DCS BMP to monitor for occurrence of euglycemic DKA; no signs thus far # Atrial Fibrillation on Eliquis # Intramuscular hematoma associated w/ fractures; no active hemorrhage Hgb stable; restarted apixaban 2.5 mg BID 11/01 PM Continue metoprolol tartrate # Insomnia Nightly melatonin Chronic conditions/meds: # Depression Continue escitalopram, PPI Baseline Mobility: Walks w/ walker Diet: general diet Tubes/lines: PIV VTE prophylaxis: Home Eliquis Disposition: SNF referrals sent Surrogate Decision Maker: Radha Berger Stable to discharge criteria (not met): Functional status Plan discussed with [facility] Medicine 13 ([facility]) Head Baggage Porter, Melanie Mcpherson M.D., who was present during lee portions of the evaluation today. Please page the [facility] Medicine 13 ([facility]) service pager with any questions. Joshua Lafelur MD PGY-3 Internal Medicine [employer] * Melanie Guzman M.D., M.S. - 11/04/2024 5:09 PM CST I saw and evaluated Hayde Fong on rounds today with our medicine team, and I agree with the findings and plan as documented in today's progress note by Dr. Lafleur, with the following comments: Hayde Fong is an 89-year-old female admitted after a mechanical ground level fall which resulted in left pelvic and sacral fractures with associated intramuscular hematoma without active extravasation. Medical history is significant for AFib (on Eliquis), nonischemic cardiomyopathy, type 2 diabetes with neuropathy and nephropathy, CKD 3, complete heart block s/p PPM. She is independently dwelling, and mobility significantly limited by pain. Her fractures are being managed nonoperatively. Pain better controlled. Apixaban was resumed on evening of 11/01 and H/H stable without new symptoms. Developed NASIM which is improving (suspect venous congestion as the etiology) and will continue diuretics and Jardiance and monitor. PT/OT following. She has been accepted to a SNF for Wednesday. Please refer to Dr. Lafleur's note dated today for additional details about our team's plan of care. [employer] * Sarah Stallworth O.T., MOT - 11/04/2024 12:07 PM CST 11/04/24 1206 Reason Therapy Missed Reason Therapy Missed Patient declined therapy (Patient attempted x2 this date. Patient declined therapy on both attempts stating she was comfy inbed. OT educated on importance of mobility while hospitalized. Patient continued to decline OT today. Will follow up per plan of care.) Sarah Stallworth O.T., [place] [employer] * Joshua Lafleur Jr., M.D. - 11/04/2024 6:47 AM CST T Medicine 13 ([facility]) PROGRESS NOTE SUBJECTIVE No events overnight. Participating with therapy. Vitals are normal. Normal urine output. A.m. labs reviewed on creatinine continues to downtrend to 1.75, close to her baseline (although it is difficult to appreciate her true baseline creatinine). Hemoglobin is unchanged. Regular bowel movements. Took a total of 20 mg of oxycodone in the last 24 hours. Pain rated as 0. Blood glucose remains uncontrolled with the highest of 253 around suppertime. Normal anion gap. OBJECTIVE VITAL SIGNS Temperature: [36.3 ??C-36.8 ??C] 36.5 ??C Resp Rate: [16-18] 18 Blood Pressure: (124-149)/(60-82) 149/82 SpO2: [96 %-97 %] 97 % Pulse Rate: [60-74] 74 PHYSICAL EXAM General: Well appearing female in bed in no acute distress. Cardiac: Regular rate and rhythm. 3/6 systolic murmur over RUSB. No edema through knee, but does have 1+ edema in posterior thigh. Pulm: Clear to auscultation posteriorly. Normal work of breathing on room air. Extremities: Warm, dry, appear well perfused. No overlying skin changes/ hematoma on left thigh. Mental: Alert and appropriate with conversation. DIAGNOSTICS I have reviewed relevant interval diagnostics. 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 Re: Fractures - managed non-operatively. PT/OT. She needs SNF placement based on PT eval 10/31. CM consulted and patient has been accepted t a facility with tentative discharge plan 11/06. Re: Pain - multimodal with Tylenol, oxycodone down to 5 mg but q4h as PRN, and pregabalin. Re: IM hematoma - apixaban restarted; no overlying skin changes or new/worsening pain to suggest enlargement; Hgb stable Re: NASIM - favor this to be venous congestion, improving with home furosemide. 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 With her fracture pattern, we would anticipate left sided groin pain and left low back pain, particularly with hip flexion motions ([id number], walking, etc). This will improve with time as her fractures continue to heal PT/OT Advance in activities as tolerated FOLLOW UP: approximately 6 weeks with repeat xrays pelvis prior, we will coordinate with endocrinology consultation for fragility fracture work up. We will facilitate this appointment. # Insulin-dependent T2DM poorly controlled (A1C 13.7% 01/2024) Jardiance held Insulin: DCS Daily BMP x 3 days (last 11/04/24) to monitor for occurrence of euglycemic DKA; no signs thus far # Atrial Fibrillation on Eliquis # Intramuscular hematoma associated w/ fractures; no active hemorrhage Hgb stable; restarted apixaban 2.5 mg BID 12/25 PM Continue metoprolol tartrate # NASIM - improving # HFimpEF Continue furosemide 40 mg daily Daily BMP # Insomnia Nightly melatonin Chronic conditions/meds: # Depression Continue escitalopram, PPI Baseline Mobility: Walks w/ walker Diet: general diet Tubes/lines: PIV VTE prophylaxis: Home Eliquis Disposition: SNF referrals sent Surrogate Decision Maker: Radha Berger Stable to discharge criteria (not met): Functional status Plan discussed with [facility] Medicine 13 ([facility]) Head Baggage Porter, Melanie Mcpherson M.D., who was present during lee portions of the evaluation today. Please page the [facility] Medicine 13 ([facility]) service pager with any questions. Joshua Lafleur MD PGY-3 Internal Medicine [employer] * Melanie Guzman M.D., M.S. - 11/03/2024 3:24 PM CST I saw and evaluated Hayde Fong on rounds today with our medicine team, and I agree with the findings and plan as documented in today's progress note by Dr. Sen, with the following comments: Hayde Fong is an 89-year-old female admitted after a mechanical ground level fall which resulted in left pelvic and sacral fractures with associated intramuscular hematoma without active extravasation. Medical history is significant for AFib (on Eliquis), nonischemic cardiomyopathy, type 2 diabetes with neuropathy and nephropathy, CKD 3, complete heart block s/p PPM. She is independently dwelling, and mobility significantly limited by pain. Her fractures are being managed nonoperatively. Pain not controlled well today and so regimen will be adjusted. Apixaban was resumed on evening of 11/01 and H/H stable without new symptoms. Developed NASIM which loks to be improving - we are considering venous congestion as the etiology and will continue diuretics and Jardiance and monitor. PT/OT following. SNF placement referrals have been sent. Please refer to Dr. Sen's note dated today for additional details about our team's plan of care. [employer] * Tennille Billings M.B.A., R.N. - 11/03/2024 12:47 PM CST SUBJECTIVE Discharge Planning - SNF A list of custodial facility options (that they geographically reside or requested) has been verbally reviewed with patient and daughter Jasmyne . Disclaimers: Financial disclosure provided informing patient of our ownership and financial relationship of the [facility], home health, and hospice agencies. Reviewed Medicare coverage and provided a list of options. The patient and daughter Jasmyne declined additional resources. Anticipated Needs Functional Status: bathing, dressing, toileting, transfers to/from bed, chair, etc., mobility, mealpreparation, and medication setup/administration Assistive Devices: Eyeglasses, Hearing aid(s), Grab bars - toilet, Other (Comment), Walker - four wheeled, Toilet riser, Tub/shower chair/bench (Electric Scooter, walk in bathtub) Services/Resources: N/A Modifications to home environment: None Transportation: stretcher van Anticipated discharge destination: SNF OBJECTIVE Patient is admitted in [address] - Room 196 ASSESSMENT / PLAN Assessment Those noted above appear to have insight into the patient's needs at this time and are planning appropriately for discharge needs. They report agreement with the below plan with no further questions at this time. Patient and daughter Jasmyne are agreeable with the plan as outlined below. Plan The patient is being prepared to discharge on 11/06/2024 if medically ready for transfer. Patient needs to arrive to the facility by 4:00 PM at the latest. COVID swab is NOT needed for admission. Contact Remediation Technician if time needs to be changed. Transportation has been arranged with [employer] ([phone]) for Wednesday11/06/24 at 12:30 PM. Ride kali will cost $296 and be paid by family. Please have payment arranged with transportation company before pickup. [employer] will meetthe patient in their room. Destination - Admitted Since 10/30/2024 Service Provider Services Address Phone Fax Patient Preferred [facility] [place] [address] [address] [facility] [phone] -- Contact: intake Transportation oxygen: No oxygen needed. NURSING: - Complete documentation in the Discharge Navigator including Nursing Report Info and Facility/NextLevel of Care Info. - Contact facility to give report on morning of discharge. - Send After Visit Summary and required packet of dismissal information with patient, including advance directive. Fax this information to the facility prior to discharge. PRIMARY SERVICE: - Provider to Provider call is not required. - Provide written prescriptions for all narcotics. After Visit Summary to Include: - All discharge medications include dosage, times for administration, diagnosis, and stop date. - Ongoing care - wound care, infection precautions and phone numbers to call. Remediation Technician : - Pre-admission screen has been completed. Confirmation is: [id number] Level of Care: Based on the information provided, it appears this person meets level of care for purposes of MA payment. OBRA: It appears this person does not need an OBRA Level II assessment. - Will continue to follow. Tennille Billings M.B.A., R.N. 11/03/2024 [employer] * Teddy Sen M.D., M.S. - 11/03/2024 11:11 AM CST [facility] Medicine 13 ([facility]) PROGRESS NOTE SUBJECTIVE Had increased pain overnight requiring extra dose of oxycodone. Didn't sleep well - couldn't fall asleep till 3 am. Feeling a bit down this AM 2/2 poor sleep + leg pain that comes on only w/ movement. Leg pain has asharp character to it. Declined PT this AM. OBJECTIVE VITAL SIGNS Temperature: [36.3 ??C-36.7 ??C] 36.3 ??C Resp Rate: [14-16] 16 Blood Pressure: (139-148)/(60-83) 139/60 SpO2: [92 %-97 %] 97 % Pulse Rate: [60-67] 60 PHYSICAL EXAM General: Well appearing female in bed in no acute distress. Cardiac: Regular rate and rhythm. 3/6 systolic murmur over RUSB. No edema through knee, but does have 1+ edema in posterior thigh. Note sclerotic AV valve on TTE. Pulm: Clear to auscultation posteriorly. Normal work of breathing on room air. Extremities: Warm, dry, appear well perfused. No overlying skin changes/ hematoma on left thigh. Mental: Alert and appropriate with conversation. DIAGNOSTICS I have reviewed relevant interval diagnostics. 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 Re: Fractures - managed non-operatively. PT/OT. She needs SNF placement based on PT eval 10/31. CM consulted. See below re: ORS recs. Re: Pain - oxycodone down to 5 mg but q4h as PRN. Making it more frequent; 5 mg works for her. Increasing pregabalin to 50 mg qHs and 25 mg daytime. Re: IM hematoma - apixaban restarted; no overlying skin changes to suggest enlargement; Hgb stable Re: Constipation - continue bowel regimen Re: NASIM - unclear etiology. UA unremarkable. Unable to get subcostal on POCUS but LV grossly preserved EF. I favor this to be venous congestion from cardiorenal ISO held diuresis initially; with continued diuresis Cr has improved a bit today. Continue furosemide @ home dose and CTM. Mild leukocytosis; no clinical signs of infection, resolved. CTM. 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 With her fracture pattern, we would anticipate left sided groin pain and left low back pain, particularly with hip flexion motions (ukr-cp-[id number], walking, etc). This will improve with time as her fractures continue to heal PT/OT Advance in activities as tolerated FOLLOW UP: approximately 6 weeks with repeat xrays pelvis prior, we will coordinate with endocrinology consultation for fragility fracture work up. We will facilitate this appointment. # Insulin-dependent T2DM poorly controlled (A1C 13.7% 01/2024) Jardiance held Insulin: DCS Daily BMP x 3 days (last 11/04/24) to monitor for occurrence of euglycemic DKA; no signs thus far # Atrial Fibrillation on Eliquis # Intramuscular hematoma associated w/ fractures; no active hemorrhage Hgb stable; restarted apixaban 2.5 mg BID 11/01 PM Continue metoprolol tartrate # NASIM - improving # HFimpEF Continue furosemide 40 mg daily Daily BMP # Insomnia Nightly melatonin Chronic conditions/meds: # Depression Continue escitalopram, PPI Baseline Mobility: Walks w/ walker Diet: general diet Tubes/lines: PIV VTE prophylaxis: Restarting home apixaban 11/01 Disposition: SNF referrals sent Surrogate Decision Maker: Radha Berger Stable to discharge criteria (not met): Functional status Plan discussed with [facility] Medicine 13 ([facility]) Head Baggage Porter, Melanie Mcpherson M.D., who was present during lee portions of the evaluation today. Please page the [facility] Medicine 13 ([facility]) service pager with any questions. Teddy Sen MD MS PGY-3 Internal Medicine [employer] * Daisy Bear APRN, C.N.P. - 11/03/2024 10:27 AM CST SUBJECTIVE HISTORY OF PRESENT ILLNESS LOS: 4 days DCS continues to follow this 89 y.o. female for blood glucose management admitted on 10/30/2024 forFracture Sacrum Closed Initial (HCC) PREADMISSION DIABETES THERAPY: Empagliflozin 10 mg daily in Am Lantus 28 units daily in Am Regular insulin 5 units 3 times daily with meals or snacks.. Patient is in no acute distress. Nurse is present at the bedside. Reviewed hospital insulin regimen. Reviewed dismissal plan. Blood Glucose Results in Last 24 Hours: Recent Labs 11/03/24 0916 11/02/24 2214 11/02/24 2158 11/02/24 1644 11/02/24 1400 GLUCOSEPOC 178 H -- 224 H 248 H 268 H GLUCOSE -- 227 H -- -- -- Yesterday given: Lantus 12 units in the morning, NovoLog 1 unit for every 10 grams of carbohydratesconsumed with morning meal (6 units) then DC'd, and NovoLog 3 units total for the correction of hyperglycemia. Oral medications given: Empagliflozin 10 mg in the morning then DC'd. STEROIDS: None Current Diet Adult Diet Regular; 60 gm Carbs (per meal) starting at 10/30 1353 OBJECTIVE VITAL SIGNS Temperature: 36.3 ??C Resp Rate: 16 Blood Pressure: 139/60 BP Location: Left arm;Upper SpO2: 97 % Height: 165 cm Weight: 90.7 kg Body mass index is 33.31 kg/m??. DIAGNOSTICS Lab Results Component Value Date CREATININE 1.96 (H) 11/02/2024 Estimated Creatinine Clearance: 22 mL/min (A) (by C-G formula based on SCr of 1.96 mg/dL (H)). ASSESSMENT / PLAN #1 Diabetes mellitus, type 2, preadmission hyperglycemia, A1c pending. #2 Variable blood glucoses #3 CKD #4 Cardiomyopathy INPATIENT PLAN: - Blood Glucose Monitoring: four times daily before meals and bedtime - Glucose Goal: 140-180 mg/dL. - Basal: Lantus 12 units in the morning. - Mealtime: NovoLog 1 unit for every 15 grams of carbohydrates consumed with meals. Initiated due to hyperglycemia during the day yesterday without mealtime insulin coverage. - Correction Scale: NovoLog mild correction scale three times a day. - DCS will evaluate and adjust insulin doses as indicated to achieve glycemic goal. - Last dose of Empagliflozin 10 mg was on 11/02/24. BMP on 11/02/24 showed an anion gap of 9 and bicarbonate of 26. Recommend daily BMP for 5 days from last dose of SGLT 2. ANTICIPATED DISMISSAL PLAN: Preadmission regimen with dose adjustment. Blood Glucose Frequency: four times daily or via continuous glucose monitor (CGM) Goal: 120-180 mg/dL, higher goal due to age and comorbidities Please page DCS within 24 hours prior to hospital dismissal for final dismissal recommendations. Discussed above plan with the patient and nurse. Patient is alert and oriented and in agreement with the plan. DCS pager [phone] will continue to follow. Call primary service for diabetes concerns between 6:30 p.m. and 6:30 a.m. Primary service to contact tone cabinet assembler Endocrinology fellow via hospital cut in station operator for questions. [employer] * Yovanny Drake, P.T., D.P.T. - 11/03/2024 9:58 AM CST Physical Therapy Inpatient Treatment Note SUBJECTIVE Patient's Name: Hayde Fong Referring/Attending: Melanie Guzman M.D. Medical Diagnosis: Fracture Sacrum Closed Initial (HCC) [S32.10XA] Fracture Lumbosacral Spine And Pelvis Closed Initial (HCC) [S32.9XXA] Reason for Referral: PT Evaluate and Treat PT - Acute Onset Date: 10/30/24 Payor: MEDICARE / Plan: MEDICARE A AND B / Product Type: Medicare / History of Present Illness: Sacrum fracture Family/Caregiver Present: No Patient Comments: Patient rates her pain 10/10 and feels she is doing worse today than yesterday. Precautions Weight Bearing Status: weight bearing as tolerated left lower extremity Other Precautions: Fall risks OBJECTIVE Treatment consisted of: Bed Mobility - Rolling # of Assistants: 1 Level of Assistance: Minimal assistance Device: Bed Rail Cuing: Verbal, Tactile Comments: Ax2 to boost up in bed Patient's nurse was contacted and patient's status was discussed Patient was left in bed at end of session with call light in reach, all needs met and questions answered. Outcome Measures -[facility] Inpatient Short Form: -[facility] Basic Mobility (V.2) How much help from another person do you currently need???If the patient hasn't done an activity recently, how much help from another person do you think he/she would needif he/she tried? 1. Turning from your back to your side while in a flat bed without using bedrails?: A Little 2. Moving from lying on your back to sitting on the side of a flat bed without using bedrails?: A Lot 3. Moving to and from a bed to a chair (including a wheelchair)?: A Lot 4. Standing up from a chair using your arms (e.g., wheelchair, or bedside chair)?: A Lot 5. To walk in hospital room?: A Lot 6. Climbing 3-5 steps with a railing?: Total -[facility] Basic Mobility (V.2) Raw Score: 12 -[facility] Basic Mobility (V.2) Standardized Score: 32.23 Interpretation: Clinicians answer the -[facility] Inpatient Short Form based on observed patient activity and/or clinical judgement (ie. patient can be scored without physically performing each activity) Based on scoring guidelines using the raw score value: Those going to home had an average score at or above 18 Those going to facility had an average score at or below 17 Assessment Discharge Therapy Needs - PT: Ongoing skilled physical therapy Skilled therapy can include physical therapy provided by home health, outpatient clinic, or a post-acute facility. The location of these services is determined by the patient's care team in partnership with patient/family. Level of Care Needed - PT: Assistance with transfers (Comment), Assistance with walking and moving around the home, Assistance with bed mobility, Physical assistance needed Barriers to Discharge Home: Fall risk, Limited caregiver support, Current functional status From a physical therapy perspective, the level of care above has been recommended for Ms. Fong after hospital discharge. This level of care is based on her functional abilities during today's session. This may change throughout the hospital course and will be updated as appropriate. Clinical Impression of today's session: The patient declined all offers, despite encouragement, to mobilize from bed due to an elevated level of pain and discomfort. She required assistance with bed mobility today a result of her high painlevel. Rehab potential: Ms. Fong has potential to achieve established physical therapy goals within the time frame outlined below. Progress: Slow progress, limited activity tolerance Functional Goals and Timeframes: PT Inpatient Goals PT Goal #1: Patient will be able to perform bed mobility using hospital bed features with Supervision to allow for lower BOC . PT Goal #1 Status: Progressing PT Goal #2: Patient will be able to perform transfers with minimal assistx 1 using least restrictive assistive device to be safe to discharge to a lesser care unit . PT Goal #2 Status: Ongoing PT Goal #3: Patient will ambulate 50m with modified independence using least restrictive device forsafe in home ambulation. PT Goal #3 Status: Ongoing Plan Patient agrees with the plan of care and goals. Treatment Plan: PT Frequency: PT Amount: 1 visit per day PT Frequency: 5 times per week Requires Inpatient Follow-Up: Yes PT - Next Inpatient Appointment: 11/06/24 PT Plan Comments: Contiue to progress bed mobility , functional transfers using a least restrictivegait devcie . Progress ambulation as appropriate . progress Lower extremity conditioning exercises. Treatment interventions may include: Treatment/Interventions: Therapeutic exercise, Therapeutic functional activity, Neuromuscular re-education, Gait training, Self-care/home management Billing: Time Spent with Patient Therapeutic Interventions Therapeutic Activity (min): 12 min Time Tracking Total Timed Units (min): 12 min Total Treatment Time (min): 12 min Yovanny Drake P.T., D.P.T. [employer] * Brandy Mauro O.T., O.T.DNavdeep - 11/02/2024 3:17 PM CST Occupational Therapy Acute Hospital Inpatient Treatment SUBJECTIVE Patient's Name: Hayde Fong Referring/Attending Provider: Melanie Guzman M.D. Reason for Referral: Occupational Therapy Evaluation and Treatment History of Present Illness: Hayde Fong is a 89 y.o. female who was admitted to [facility] in [place] on 10/30/2024 for Fracture Sacrum Closed Initial (HCC) [S32.10XA] Fracture Lumbosacral Spine And Pelvis Closed Initial (HCC) [S32.9XXA]. Precautions Weight Bearing Status: weight bearing as tolerated left lower extremity Other Precautions: Fall risks Pain Assessment: Pain Ratin/10 on a 0-10 point scale, Location: Left hip Patient states level of pain is acceptable or tolerable to participate in therapy Pain intervention(s) used to address pain greater than 4: ambulation/activity repositioned distraction emotional support Subjective Comments: Agreeable to therapy session with encouragement. OBJECTIVE Vital Signs: Vitals not formally assessed during session. No concerns during chart review and the patient had nosigns or symptoms consistent with vital changes during therapy session. Outcome Measures: [facility] Inpatient Short Form: Putting on and taking off regular lower body clothing?: A lot Putting on and taking off regular upper body clothing?: A Little Taking care of personal grooming such as brushing teeth?: A Little Bathing (including washing, rinsing, drying)?: A lot Toileting, which includes using toilet, bedpan, or urinal?: A lot Eating meals?: None Daily Activities Raw Score (max 24): 16 Daily Activities Standardized Score: 35.96 Interpretation: Based on scoring guidelines using the raw score value: Those going to home had an average score at or above 18 Those going to facility had an average score at or below 17 Clinicians answer the [facility] Inpatient Short Form based on observed patient activity and/or clinical judgment (patient can be scored without physically performing each activity). Cognition: Will further assess and monitor as warranted Therapeutic Interventions: ACTIVITIES OF DAILY LIVING: LOWER BODY DRESSING - Assist Level: moderate assist - Patient Location: edge of bed, standing - LB Dressing Item: incontinent brief - Therapist Delivery: assessed, assisted, educated, facilitated, instructed - Assist/Cues Provided: verbal, tactile, visual, and manual for technique, sequencing, assistance for thoroughness, balance, safety Patient requiring assist to thread bilateral lower extremities and min assistance to mgmt clothing over hips in standing. BED MOBILITY: SUPINE TO SIT - Assist Level: minimal assist - Device: head of bed elevated - Therapist Delivery: assessed, assisted, educated, facilitated, instructed - Assist/Cues Provided: verbal, tactile, visual, and manual for technique, sequencing, proper hand placement, trunk support, bed device use, increased time, completion of activity, safety - assistance required due to elevated pain SIT TO SUPINE - Assist Level: minimal assist - Device: head of bed elevated - Therapist Delivery: assessed, assisted, educated, facilitated, instructed - Assist/Cues Provided: verbal, tactile, visual, and manual for technique, sequencing, proper leg placement, lower extremity support, guided practice, increased time, completion of activity, safety - assistance required due to elevated pain FUNCTIONAL TRANSFERS: SIT TO STAND - Assist Level: contact guard assist - Device: front wheeled walker and gait belt - Surface: bed - Therapist Delivery: assessed, assisted, educated, facilitated, instructed - Assist/Cues Provided: verbal, tactile, visual, and manual for technique, sequencing, proper hand placement, balance, safety - # of reps: 3 STAND TO SIT - Assist Level: contact guard assist - Device: front wheeled walker and gait belt - Surface: bed - Therapist Delivery: assessed, educated, facilitated, instructed - Assist/Cues Provided: verbal, tactile, visual, and manual for technique, sequencing, proper hand placement, balance, safety - # of reps: 3 PRE-GAIT: She performed lateral weight shifting and progressed to marching. She demonstrated difficulty lifting right lower extremity due to pain in left hip. She declined forward ambulation at this time. Education/Training Provided: Provided education on role of occupational therapy in the acute setting. Collaborated with patient and/or family on goals and plan of care. Call light safety: - Instructed patient in the functional use of the call light device and review of appropriate scenarios for use. Education has the ultimate goal to increase safety and reduce delirium through appropriate access to nursing staff and environmental controls. Functional Transfers: - Provided instruction and cues during functional sit to/from stand transfers, including body alignment to surface, appropriate hand placement, and optimal placement of extremities to optimize safetyand technique. Gait Belt Use: - Instructed patient and/or caregiver on proper gait belt don/doff process. Team Communication: The patient's status was discussed and coordination of care occurred with RN, PT Patient was left in bed at end of session with call light in reach, all needs met and questions answered. Assessment Discharge Therapy Needs - OT: Ongoing skilled occupational therapy (pending hospital progress and available support upon discharge) If skilled therapy is recommended, skilled therapy can include occupational therapy provided in home health, outpatient or post-acute facility. The location of these services is determined by patient's care team in partnership with patient/family. Level of Care Needed - OT: Assistance with toilet/shower transfers, Assistance with medication set up/administration, Assistance with meal preparation, Assistance with shopping, Assistance with dressing, Assistance with transportation, Assistance with housekeeping, Assistance with financial manageme nt, Assistance with showering/bathing, Assistance with toileting, Cognitive assistance needed, Physical assistance needed Barriers to Discharge Home: Fall risk, Limited caregiver support, Current functional status Barriers to Discharge Comments: Lives alone Recommended Adaptive Equipment - OT: Other (Comment) (ongoing assessment) Clinical Impression: Mrs. Fong is making good progress towards occupational therapy goals. She tolerated today's session well despite reporting 8/10 left hip pain. She was able to perform bed mobility with minimal assistance. She participated in functional transfer training in which she stood from edge of bed using front- wheeled walker requiring grossly contact guard assistance. She performed pre- gait tasks with contact guard assistance but was noted to have difficulty lifting right lower extremity due to left hippain during weightbearing. Patient politely declined attempt to ambulate or pivot this date due to fatigue and elevated pain. Patient would continue to benefit from skilled occupational therapy services to optimize independence and safety with activities of daily living performance. Plan OT Plan Comments: Next Session: progress functional mobility with FWW (pivot vs short distance ambulation), toileting, standing grooming at tray table Functional Goals: OT Goal #1: Patient will dress lower body with modified independence using adaptive equipment as needed for safety. OT Goal #1 Status: Slowly progressing OT Goal #2: Patient will complete self-cares standing at the sink for 3-5 minutes with supervision to improve activity tolerance for self-cares prior to discharge. OT Goal #2 Status: Slowly progressing OT Goal #3: Patient will transfer on/off toilet, manage nicloe care, and clothing with minimal assistance in preparation for discharge. OT Goal #3 Status: Ongoing OT Goal #4: Patient and family will demonstrate understanding of necessary durable medical equipment, adaptive equipment, and physical and cognitive level of assistance in activities of daily living/mobility for safe dismissal planning. OT Goal #4 Status: Ongoing Progress: Progressing toward goals Rehab potential: Ms. Fong has good potential to achieve established occupational therapy goals within the time frame outlined below. OT Frequency: OT Amount: 1 visit per day OT Frequency: 5 times per week OT Inpatient Duration : Until goals are met or hospital discharge Requires Inpatient OT Follow-Up: Yes OT - Next Inpatient Appointment: 11/03/24 Plan: Continue with current plan Treatment interventions may include: Treatment Interventions: Therapeutic exercise, Therapeutic functional activity, Self-care/home management, Cognitive skills training Occupational Therapy Attestation Statement: Patient agrees with the plan of care and goals. Billing: Time Spent with Patient Therapeutic Interventions Home Management Training (min): 26 min Time Tracking Total Timed Units (min): 26 min Total Treatment Time (min): 26 min Brandy Mauro O.T., O.T.D. [employer] * Yovanny Drake P.T., Librado.P.TNavdeep - 11/02/2024 1:02 PM CST Physical Therapy Inpatient Treatment Note SUBJECTIVE Patient's Name: Hayde Fong Referring/Attending: Melanie Guzman M.D. Medical Diagnosis: Fracture Sacrum Closed Initial (HCC) [S32.10XA] Fracture Lumbosacral Spine And Pelvis Closed Initial (HCC) [S32.9XXA] Reason for Referral: PT Evaluate and Treat PT - Acute Onset Date: 10/30/24 Payor: MEDICARE / Plan: MEDICARE A AND B / Product Type: Medicare / History of Present Illness: Sacrum fracture Family/Caregiver Present: No Patient Comments: Patient rates her pain 6/10. She does not feel she is quite ready to use front wheeled walker for transfers and gait. Precautions Weight Bearing Status: weight bearing as tolerated left lower extremity Other Precautions: Fall risks OBJECTIVE Treatment consisted of: Bed Mobility - Supine to Sit # of Assistants: 1 Level of Assistance: Modified Independent, Supervision/Set-up Device: Head of bed elevated, Bed rail Sit to Stand Transfers # of Assistants: 1 Transfer Surface: Bed Transfer Equipment: Gait belt, Sit to stand machine Level of Assistance: Contact guard assistance Assessment/Delivery: Assessed, Instructed, Educated, Modified Comments: Elevated bed height Stand to Sit Transfers # of Assistants: 1 Transfer Surface: Chair Transfer Equipment: Gait belt, Sit to stand machine Level of Assistance: Contact guard assistance Assessment/Delivery: Assessed, Instructed, Educated Patient's nurse was contacted and patient's status was discussed Patient was left in bedside chair at end of session with call light in reach, all needs met and questions answered. Outcome Measures AM-PAC Inpatient Short Form: -[facility] Basic Mobility (V.2) How much help from another person do you currently need???If the patient hasn't done an activity recently, how much help from another person do you think he/she would needif he/she tried? 1. Turning from your back to your side while in a flat bed without using bedrails?: A Little 2. Moving from lying on your back to sitting on the side of a flat bed without using bedrails?: A Lot 3. Moving to and from a bed to a chair (including a wheelchair)?: Total 4. Standing up from a chair using your arms (e.g., wheelchair, or bedside chair)?: A Lot 5. To walk in hospital room?: Total 6. Climbing 3-5 steps with a railing?: Total -[facility] Basic Mobility (V.2) Raw Score: 10 -[facility] Basic Mobility (V.2) Standardized Score: 28.13 Interpretation: Clinicians answer the -[facility] Inpatient Short Form based on observed patient activity and/or clinical judgement (ie. patient can be scored without physically performing each activity) Based on scoring guidelines using the raw score value: Those going to home had an average score at or above 18 Those going to facility had an average score at or below 17 Assessment Discharge Therapy Needs - PT: Ongoing skilled physical therapy Skilled therapy can include physical therapy provided by home health, outpatient clinic, or a post-acute facility. The location of these services is determined by the patient's care team in partnership with patient/family. Level of Care Needed - PT: Assistance with transfers (Comment), Assistance with walking and moving around the home, Assistance with bed mobility, Physical assistance needed Barriers to Discharge Home: Fall risk, Limited caregiver support, Current functional status From a physical therapy perspective, the level of care above has been recommended for Ms. Fong after hospital discharge. This level of care is based on her functional abilities during today's session. This may change throughout the hospital course and will be updated as appropriate. Clinical Impression of today's session: The patient demonstrated good performance of bed mobility with use of hospital bed features. She benefited from an elevated bed height and when performing [id number]-ue-[id number] transfers with use of the Sarahsteady device. The patient declined all efforts to transition to a front wheeled walker for transfers and gait during today's therapy session, and requested continued use of Caro steady device. The patient did seem open to the idea to transitioning to a front wheeled walker tomorrow, since she felt she did a lot better today with use of Caro steady than she did yesterday. Rehab potential: Ms. Fong has potential to achieve established physical therapy goals within the time frame outlined below. Progress: Slow progress, limited activity tolerance Functional Goals and Timeframes: PT Inpatient Goals PT Goal #1: Patient will be able to perform bed mobility using hospital bed features with Supervision to allow for lower BOC . PT Goal #1 Status: Progressing PT Goal #2: Patient will be able to perform transfers with minimal assistx 1 using least restrictive assistive device to be safe to discharge to a lesser care unit . PT Goal #2 Status: Slowly progressing PT Goal #3: Patient will ambulate 50m with modified independence using least restrictive device forsafe in home ambulation. PT Goal #3 Status: Ongoing Plan Patient agrees with the plan of care and goals. Treatment Plan: Plan: Continue with current plan PT Frequency: PT Amount: 1 visit per day PT Frequency: 5 times per week PT Inpatient Duration : Until goals are met or hospital discharge Requires Inpatient Follow-Up: Yes PT - Next Inpatient Appointment: 11/03/24 PT Plan Comments: Contiue to progress bed mobility , functional transfers using a least restrictivegait devcie . Progress ambulation as appropriate . progress Lower extremity conditioning exercises. Treatment interventions may include: Treatment/Interventions: Therapeutic exercise, Therapeutic functional activity, Neuromuscular re-education, Gait training, Self-care/home management Billing: Time Spent with Patient Therapeutic Interventions Therapeutic Activity (min): 17 min Time Tracking Total Timed Units (min): 17 min Total Treatment Time (min): 17 min Yovanny Drake P.T., D.P.T. [employer] * Teddy Sen M.D., M.S. - 11/02/2024 12:40 PM CST [facility] ([facility]) PROGRESS NOTE SUBJECTIVE NAEO.Doing well at bedside. Pain in leg getting better. Ambulating w/ nursing. Did tell me she has been trying to lose weight by eating less; has gone from 200 lbs to 190 lbs on home scale over the last month or two; 190 was wt before coming in. Had good PO intake prior. OBJECTIVE VITAL SIGNS Temperature: [36.5 ??C-36.6 ??C] 36.5 ??C Resp Rate: [14] 14 Blood Pressure: (138-158)/(65-119) 147/97 SpO2: [93 %-95 %] 93 % Weight: [90.7 kg] 90.7 kg BMI (Calculated): [33.3 kg/m??] 33.3 kg/m?? Pulse Rate: [63-66] 63 PHYSICAL EXAM General: Well appearing female in bed in no acute distress. Cardiac: Regular rate and rhythm. 3/6 systolic murmur over RUSB. 1+ LE b/l edema. Note sclerotic AVvalve on TTE. Pulm: Clear to auscultation posteriorly. Normal work of breathing on room air. Extremities: Warm, dry, appear well perfused. No overlying skin changes/ hematoma on left thigh. Mental: Alert and appropriate with conversation. DIAGNOSTICS I have reviewed relevant interval diagnostics. 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 Re: Fractures - managed non-operatively. PT/OT- she needs SNF placement based on PT eval 10/31. CM consulted. See below re: ORS recs. Re: IM hematoma - apixaban restarted; no overlying skin changes to suggest enlargement; Hgb stable Re: Pain - continue oxycodone 5 - 7.5 mg q6h PRN. This seems to be working well for her. Re: Constipation - continue bowel regimen Re: NASIM - unclear etiology. UA unremarkable. Wonder re: volume depletion (?more likely ISO recent wt loss) vs venous congestion (cardiorenal). Will POCUS her today. Furosemide, Jardiance held. She isurinating enough, but will get bladder scan w/ PVR. Unclear recent weight; last from January 29 is high 80s kg and here it is 90.7 kg; don't have one from admission. Mild leukocytosis; no clinical signs of infection; CTM off abx. # Left superior and inferior pubic ramus fractures # Left sacral ala fracture # LLE pain and difficulty ambulating ISO above # Chronic back pain on chronic opioids w/ spinal stim in place (currently off) # Opioid induced constipation Non-operative management Pain regimen: Oxycodone 5 - 7.5 mg q6h PRN Scheduled tylenol Topicals Continue pregabalin 25 mg qHs PT/OT CM Consult Opioid induced constipation: Continue [employer] lubiprostone 24 mcg BID Daily MiraLAX, PRN bisacodyl suppository Senokot-S 2 tabs BID ORS Recs: Weight bearing: full WBAT LLE, gait aid (walker) for ambulatory assistance/fall prevention Immobilization: none required for pelvic ring injury ROM: unrestricted motion left lower extremity. With her fracture pattern, we would anticipate left sided groin pain and left low back pain, particularly with hip flexion motions ([id number]-[id number], walking, etc). This will improve with time as her fractures continue to heal PT/OT Advance in activities as tolerated FOLLOW UP: approximately 6 weeks with repeat xrays pelvis prior, we will coordinate with endocrinology consultation for fragility fracture work up. We will facilitate this appointment. # Insulin-dependent T2DM poorly controlled (A1C 13.7% 01/2024) Jardiance held Insulin: DCS consult noting hypoglycemia yesterday Daily BMP x 3 days to monitor for occurrence of euglycemic DKA # Atrial Fibrillation on Eliquis # Intramuscular hematoma associated w/ fractures; no active hemorrhage Hgb stable; restarted apixaban 2.5 mg BID 11/01 PM Continue metoprolol tartrate # NASIM # HFimpEF POCUS today HOLD furosemide 40 mg daily Daily BMP Chronic conditions/meds: # Depression Continue escitalopram, PPI Baseline Mobility: Walks w/ walker Diet: general diet Tubes/lines: PIV VTE prophylaxis: Restarting home apixaban 11/01 Disposition: SNF referrals sent Surrogate Decision Maker: Radha Berger Stable to discharge criteria (not met): Functional status Plan discussed with [facility] ([facility]) Head Baggage Porter, Melanie Mcpherson M.D., who was present during lee portions of the evaluation today. Please page the [facility] ([facility]) service pager with any questions. 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 Baseline 1.3-1.5 VTE Prophylaxis: [employer]UP[employer] INTERVIEWER apixaban ASSESSMENT / PLAN Pelvic/sacral fracture. Non-op management. Pain control with acetaminophen and oxycodone. BR scheduled Recurrent falls. Pregabalin dose reduced to 25 mg qHS. Given her advanced age and reduce renal function, hydromorphone may be a safer opioid (than oxycodone) with less accumulation NASIM. Holding home empagliflozin and furosemide. Consider changing oxycodone to hydromorphone as in #2. Atrial fibrillation. Continuing metoprolol. Resumed apixaban. T2DM. Insulin glargine resumed at reduced dose of 12 units daily (home dose 28 units daily). Pt hadbeen using over the counter regular inulin 5 units at meal times, currently on mild correction scale and carbohydrate count. BG mostly within goal of <180s. Ele Deluca Pharm.D., R.Ph., BCPS [phone] [employer] * Tennille Billings, R.N. - 11/02/2024 12:06 PM CST SUBJECTIVE Discharge Planning - SNF A list of home health care custodial facility options (that they geographically reside or requested) has been verbally reviewed with daughter Jasmyne . Disclaimers: Financial disclosure provided informing patient of our ownership and financial relationship of the [facility], home health, and hospice agencies. Reviewed Medicare coverage and provided a list of options. OBJECTIVE Patient is admitted in [address] - Room 196 Destination - Admitted Since 10/30/2024 Service Provider Request Status Services Address Phone Fax Patient Preferred [facility] Pending - Request Sent -- [address] [facility] [id number] [phone] -- [facility] Pending - Request Sent -- [address] [facility] [address] [phone] -- [facility] Pending - Request Sent -- [address] [facility] [phone] -- [facility] Pending - Request Sent -- [address] [facility] [phone] -- Home Medical Care - Admitted Since 10/30/2024 Service Provider Request Status Services Address Phone Fax Patient Preferred [facility] [place] Pending - Request Sent -- [address] [facility] [address], [place] [address] [phone] -- [facility] Declined Inadequate staffing -- [address], [id number] [phone] -- [facility] Declined Inadequate staffing -- [address], [facility] [phone] -- [facility] Declined Inadequate staffing -- [address], [facility] [phone] -- [facility] [place] Declined Services no longer provided or available -- [address], [facility] [phone] -- [facility] Declined Inadequate staffing -- [address], [facility] [phone] -- ASSESSMENT / PLAN GLAZE MAKERaircraft maintenance manager met with patient to follow up with discharge planning. Patient deferred aircraft maintenance manager to daughter Jasmyne. Jasmyne voiced preference for home health care with [facility] as the patient had a pleasant experience with them in the past. aircraft maintenance manager informed Jasmyne of decline due to inadequate staffing. Jasmyne then voiced preference for SNF placement near the [place] areas. aircraft maintenance manager explained the [facility] process and Jasmyne voiced understanding, however noted that she would not like to expand too far from the patient's residence and [facility] should [facility] be the case. Jasmyne also noted that the patient receives FIRE CLAIMS ADJUSTER services through [facility] (2 days per weeks for2 hours per visit). Patient's formerly [facility] caser shoe parts is Jairon Ryan - . aircraft maintenance manager left a voice message for Jairon as they were unavailable. PLAN aircraft maintenance manager will continue to follow to assist with SNF placement Transportation upon dismissal will be provided by family - daughter, Jasmyne Tennille Billings R.N. 11/02/24 [employer] * Melanie Guzman M.D., M.S. - 11/02/2024 10:19 AM CST I saw and evaluated Hayde Fong on rounds today with our medicine team, and I agree with the findings and plan as documented in today's progress note by Dr. Sen, with the following comments: Hayde Fong is an 89-year-old female admitted after a mechanical ground level fall which resulted in left pelvic and sacral fractures with associated intramuscular hematoma without active extravasation. Medical history is significant for AFib (on Eliquis), nonischemic cardiomyopathy, type 2 diabetes with neuropathy and nephropathy, CKD 3,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 clinical status remains stable. For pain management, I am not able to find details of her implanted pain device in the charts, would reach out to pharmacy for assistance with this as well as her home medications. For disposition preferences, she resides alone at her apartment and is fairly independent with mostactivities of daily living. Her preference would be to return home. She did add that she would consider short-term rehab, if deemed necessary though is apprehensive about leaving her pets unattended home. She identifies her daughter Radha is her healthcare power of family law attorney. Plan: Multimodal analgesic plan. Note that she is on home oxycodone for her chronic back pain (5 mg p.r.n. b.i.d.) Hold home anticoagulation for now pending repeat labs to ensure stable hemoglobin and clinical status given hematomas on imaging Please see Orthopedic surgery recommendations for non-op management of her fractures/weight-bearingstent Continue p.o. 40 mg Lasix Continue Lopressor 12.5 mg b.i.d. Starting scale insulin and long-acting 10 units in the morning. May increase long-acting to home dose pending trends Continue lubiprostone and Senokot for constipation Continue home PPI for GERD PMR consult. ADDENDUM: I spoke with her daughter Jasmyne for medication carnification. She noted that the patient is taking 10 mg every 6 hours for pain, she also has a neurostimulator implanted in her back she was switched to Eliquis 2.5 mg b.i.d. from warfarin about 4 years ago, she has not recently taken her Lasix as this is only indicated as p.r.n., she additionally shares that the patient also takes Lyrica 25 mg daily. She also added that the diabetes management has been challenging recently. The patient takes [id number] units in the morning and then 5 units of rapid acting insulin 5 units with meals. She help set up the pill box and has cameras to ensure that the patient is taking appropriate medications. The medications were also reviewed with our pharmacy colleagues and their help is appreciated givensome discrepancies in the dispensing history and patient's/family's report. When asked about the disposition preferences, Jasmyne stated that the patient will likely return home and she is in favor of this plan. She is planning to move the patient close to her house in the [facility]. DIET: Adult Diet Regular TUBES/LINES: PIV VTE PROPHYLAXIS: holding pharmacologic anticoagulation for now given hematomas CODE STATUS: DNR/DNI BASELINE MOBILITY: Walks with assistance of walker DISPOSITION: Uncertain I personally spent a total of 55 minutes providing and coordinating care today. [employer] documented in this encounter Consult Notes * John Woodson APRN, C.N.P. - 11/02/2024 1:12 PM CSTAssociated Order(s): Diabetes consult (hospital) SUBJECTIVE Diabetes consult (hospital) Referring Provider: Teddy Sen M.D., M.S. CHIEF COMPLAINT/REASON FOR CONSULT Patient seen today for blood glucose management. The patient was admitted on 10/30/2024 for Fracture Sacrum Closed Initial (HCC) HISTORY OF PRESENT ILLNESS DIABETES HISTORY: History of diabetes mellitus, type 2 Diagnosed 6 years ago. PREADMISSION DIABETES THERAPY: Empagliflozin 10 mg daily in Am Lantus 28 units daily in Am Regular insulin 5 units 3 times daily with meals or snacks. GLUCOSE MONITORING: Freestyle Antoni cgm. Pt could not recall her blood glucose numbers. HYPOGLYCEMIA: Rarely. Pt reports having positive awareness. Denies severe episodes. DIABETES COMPLICATIONS/CO-MORBIDITIES: CKD stage 3, cardiomyopathy, HLD. DIET: Pt reports that she eats 2 meals per day, plus snacks. WEIGHT: Stable lately. ACTIVITY: Pt reports that she walks with a walker. SCREENING: Most recent eye exam was 2-3 years ago. She is aware that she is overdue for an eye exam. HOSPITAL COURSE: Past 24 Hour Blood Glucose Readings: Recent Labs 11/02/24 0912 11/01/24 2254 11/01/247 11/01/24202711/01/24 1947 11/01/24 1730 11/01/24 1414 GLUCOSEPOC 122 -- 106 98 67 L 224 H 195 H GLUCOSE -- 172 H -- -- -- -- -- Yesterday received Lantus insulin 15 units in the morning and NovoLog insulin 17 units total with meals and for correction of hyperglycemia throughout the day and Empagliflozin 10 mg in Am. Diabetes medications were ordered by the primary service. Noted, that the patient was treated for hypoglycemia last evening with 2 packages of hussein crackers and 8 oz of juice plus 12.5 g of Dextrose 50%, per EMR. STEROIDS: None Current Diet Adult Diet Regular; 60 gm Carbs (per meal) starting at 10/30 1353 REVIEW OF SYSTEMS Pertinent items are noted in History of Present Illness. PREADMISSION MEDICATION: Diabetes medication(s) were reconciled on 11/02/2024. OBJECTIVE VITAL SIGNS Temperature: 36.5 ??C Resp Rate: 14 Blood Pressure: 147/97 BP Location: Right arm;Upper SpO2: 93 % BMI (Calculated): 33.3 kg/m?? Height: 165 cm Weight: 90.7 kg Body mass index is 33.31 kg/m??. PHYSICAL EXAMINATION Alert and oriented x3, and in no acute distress. Hard of hearing. Physical Exam DIAGNOSTICS I have reviewed relevant diagnostics and labs. Lab Results Component Value Date HGBA1C 13.7 (H) 01/19/2024 Estimated Creatinine Clearance: 21 mL/min (A) (by C-G formula based on SCr of 2.06 mg/dL (H)). Lab Results Component Value Date CREATININE 2.06 (H) 11/01/2024 ASSESSMENT / PLAN #1 Diabetes mellitus, type 2, preadmission hyperglycemia, A1c pending. #2 Variable blood glucoses #3 CKD #4 Cardiomyopathy INPATIENT PLAN: - Blood Glucose Monitoring: four times daily before meals and bedtime - Glucose Goal: 140-180 mg/dL. - Basal: Lantus continue 12 units in the morning. - Mealtime: None. - Correction Scale: NovoLog mild correction scale three times a day - DCS will evaluate and adjust insulin doses as indicated to achieve glycemic goal. - Consults: None - Hold oral diabetes medications Noted that the patient received the last dose of Empagliflozin this morning. Recommend checking BMPdaily for the next three days to rule out Euglycemic DKA. Discussed with the primary service. ANTICIPATED DISMISSAL PLAN: Preadmission regimen with dose adjustment. Blood Glucose Frequency: four times daily and via continuous glucose monitor (CGM) Goal: 100-160 mg/dL- higher goal due to age and comorbidities. Please page DCS within 24 hours prior to hospital dismissal for final dismissal recommendations. Discussed above plan with the patient and with the primary service an all in agreement . Patient isalert and oriented and in agreement with the plan. Thank you for the consult. DCS pager [phone] will follow. Call primary service for diabetes concerns between 6:30 p.m. and 6:30 a.m. Primary service to contact tone cabinet assembler Endocrinology fellow via hospital cut in station operator for questions. [employer] * Katherine Villa, O.T., [facility] - 10/31/2024 4:38 PM CST Occupational Therapy Acute Hospital Inpatient Evaluation/Treatment SUBJECTIVE Patient's Name: Hayde Fong Referring/Attending Provider: Melanie Guzman M.D. Reason for Referral: Occupational Therapy Evaluation and Treatment PERTINENT MEDICAL / SURGICAL HISTORY: Hayde Fong has no past medical history on file. Hayde Fong has no past surgical history on file. History of Present Illness: Hayde Fong is a 89 y.o. female who was admitted to [facility] in [place] on 10/30/2024 for Fracture Sacrum Closed Initial (HCC) [S32.10XA] Fracture Lumbosacral Spine And Pelvis Closed Initial (HCC) [S32.9XXA]. Relevant Medical History: 89 F PMH IDDM2 , AF ,chronic back pain s/p multiple surgeries w/ spinal stim in place and on chronic opioids, admitted w/ L-sacral ala fracture and L-superior and inferior pubic ramus fractures In setting of a ground level fall being managed conservatively. Precautions Weight Bearing Status: weight bearing as tolerated left lower extremity Other Precautions: Fall risks Falls screen: Fall in the last 12 months: Yes Did you have an injury with the fall: Yes Are you fearful of falling: No Pain Assessment: Pain Ratin/10 on a 0-10 point scale, Location: left lower back, left leg Patient states level of pain is acceptable or tolerable to participate in therapy Pain intervention(s) used to address pain greater than 4: medication administered by RN repositioned breathing exercises Subjective Comments: Agreeable to therapy session with encouragement. Patient/Caregiver Goals: To discharge with skilled rehab Home Living and Equipment: Lives With: Alone Receives Help From: Friend(s), Family Type of Home: Apartment Home Layout: One level, Able to live on main level with bedroom/bathroom Home Access: Level entry, Elevator Bathroom Shower/Tub: Other (Comment) (walk-in tub) Tub/shower unit location: Main floor Bathroom Toilet: Standard Bathroom Accessibility: Yes How Accessible: Accessible via walker Home Adaptive Equipment: Spring Machine Operator, Other (Comment) (slip-on shoes) Gait Devices Owned: Four-wheeled walker, Cane Other DME Equipment : Other (Comment) (recliner, flat bed) Wheelchair : Scooter Bathroom Equipment: Raised toilet seat with arms, Shower chair with back, Grab bars in shower Prior Level of Function and Mobility: ADL Assistance: Modified independent IADL/Homemaking Assistance: Required assistance IADL/Homemaking Assistance Comments: meals on wheels, daughter assists with home management tasks and transportation, friend from apartment helps with some home tasks Driving: Does not drive Driving Comments: Daughter drives. Level of [place]: Modified independent Previous Transfer/Mobility Assistance Comments: 4WW Gait Devices/Wheelchair Used: Four wheeled walker Occupational Role: Retired Occupational Role Comments: Patient reports she worked in a [employer] Leisure Interests: Patient reports she likes to watch [employer]. OBJECTIVE Vital Signs: Vitals not formally assessed during session. No concerns during chart review and the patient had nosigns or symptoms consistent with vital changes during therapy session. Evaluation Assessment: STRENGTH: Left lower extremity impaired RANGE OF MOTION: Left lower extremity impaired BALANCE: Static Sitting: Good (Maintains balance without support) Dynamic Sitting: Fair (Maintains balance with handheld assist) Static Standing: Poor (Requires assist to maintain balance) Dynamic Standing: Poor (Requires assist to maintain balance) ACTIVITY TOLERANCE: Endurance: Tolerates less than 10 minutes of activity Outcome Measures: [facility] Inpatient Short Form: Putting on and taking off regular lower body clothing?: A lot Putting on and taking off regular upper body clothing?: A Little Taking care of personal grooming such as brushing teeth?: A Little Bathing (including washing, rinsing, drying)?: A lot Toileting, which includes using toilet, bedpan, or urinal?: A lot Eating meals?: None Daily Activities Raw Score (max 24): 16 Daily Activities Standardized Score: 35.96 Interpretation: Based on scoring guidelines using the raw score value: Those going to home had an average score at or above 18 Those going to facility had an average score at or below 17 Clinicians answer the [facility] Inpatient Short Form based on observed patient activity and/or clinical judgment (patient can be scored without physically performing each activity). Cognition: Will further assess and monitor as warranted Therapeutic Interventions: ACTIVITIES OF DAILY LIVING: LOWER BODY DRESSING - Assist Level: maximal assist - Patient Location: supine - LB Dressing Item: socks - Therapist Delivery: assisted - Assist/Cues Provided: manual for donning socks BED MOBILITY: SUPINE TO SIT - Assist Level: moderate assist, x 1 - Device: bed rail, head of bed elevated - Therapist Delivery: assessed, assisted, educated, facilitated, instructed - Assist/Cues Provided: verbal, tactile, visual, and manual for technique, sequencing, proper hand placement, proper leg placement, lower extremity support FUNCTIONAL TRANSFERS: SIT<>STAND - Assist Level: moderate assist, x 2 - Device: joy stedy and gait belt - Surface: bed, chair - Therapist Delivery: assessed, assisted, educated, facilitated - Assist/Cues Provided: verbal, tactile, visual, and manual for technique, sequencing, proper hand placement, proper leg placement, use of momentum, breathing technique Education/Training Provided: - Role of OT in acute setting - Adaptive equipment/Durable medical equipment recommendations - Activity Recommendations during Hospitalization - Call light safety - Safe transfer techniques Team Communication: The patient's status was discussed and coordination of care occurred with RN, PT Co-treat with physical therapy as patient benefits from 2 skilled therapists present in order to optimize safety and progression of mobility and self-care skills. Patient was left in bedside chair at end of session with call light in reach, all needs met and questions answered. Assessment Discharge Therapy Needs - OT: Ongoing skilled occupational therapy If skilled therapy is recommended, skilled therapy can include occupational therapy provided in home health, outpatient or post-acute facility. The location of these services is determined by patient's care team in partnership with patient/family. Level of Care Needed - OT: Assistance with toilet/shower transfers, Assistance with medication set up/administration, Assistance with meal preparation, Assistance with shopping, Assistance with dressing, Assistance with transportation, Assistance with housekeeping, Assistance with financial manageme nt, Assistance with showering/bathing, Assistance with toileting Barriers to Discharge Home: Fall risk, Limited caregiver support, Current functional status Recommended Adaptive Equipment - OT: Other (Comment) (ongoing) Clinical Impression: Currently, patient presents with impairments including pain, decreased strength, impaired balance, decreased activity tolerance, and impaired range of motion resulting in functional deficits including impaired functional mobility and decreased independence with self care tasks. She is completing bed mobility and transfers with moderate assist x1-2 with Joy Saleem. She is completing functional dressing tasks with generally maximal assistance at this time. Her progress today was limited by pain. Recommend patient receive increased assistance for IADLs and ADLs from a capable caregiver post discharge. Patient would benefit from occupational therapy services to maximize functional independence,safety, and address the goals as stated. In-Hospital Activity and Mobility Recommendations: - Transfer into chair 3x/day with assist x 2 and Joy Monge. - Recommend position changes every 2 hours - Use bedside commode for toileting - Eat ALL meals in chair - Active engagement in daily self-care routine (oral cares, face washing, combing hair) - Maintain typical day/night routine and incorporate sleep hygiene strategies Plan OT Plan Comments: progress transfers and mobility as able (Joy Stedy to FWW), dressing, grooming, toileting Functional Goals: OT Goal #1: Patient will dress lower body with modified independence using adaptive equipment as needed for safety. OT Goal #1 Status: Progressing OT Goal #2: Patient will complete self-cares standing at the sink for 3-5 minutes with supervision to improve activity tolerance for self-cares prior to discharge. OT Goal #2 Status: Ongoing OT Goal #3: Patient will transfer on/off toilet, manage nicole care, and clothing with minimal assistance in preparation for discharge. OT Goal #3 Status: Ongoing Progress: Progressing toward goals Rehab potential: Ms. Fong has good potential to achieve established occupational therapy goals within the time frame outlined below. OT Frequency: OT Amount: 1 visit per day OT Frequency: 5 times per week OT Inpatient Duration : Until goals are met or hospital discharge Requires Inpatient OT Follow-Up: Yes OT - Next Inpatient Appointment: 11/02/24 Plan: Plan of care initiated Treatment interventions may include: Treatment Interventions: Therapeutic exercise, Therapeutic functional activity, Self-care/home management, Cognitive skills training Occupational Therapy Attestation Statement: Patient agrees with the plan of care and goals. Billing: Tiered OT Evaluation Codes: Comorbid Conditions: Cardiopulmonary disease, Obesity, Arthritis, Other (Comment) (see EMR) Personal Factors: Age, History of falls, Safety awareness, Needs assistive device, Living situation, Hearing impairment, Sedentary lifestyle Occupational Profile and History review: Expanded Performance Deficits: 3 - 5 performance deficits Evaluation Complexity: Moderate Time Spent with Patient Evaluations OT Eval - Mod Complexity: 20 min Therapeutic Interventions Home Management Training (min): 10 min Time Tracking Total Timed Units (min): 10 min Total Treatment Time (min): 30 min Katherine Villa O.T., MOT [employer] * Sarita Callaway M.S., RDN, LD - 10/31/2024 12:48 PM CSTAssociated Order(s): IP CONSULT TO DIETITIAN Images from the original note were not included. Clinical Nutrition: Initial Assessment Clinical Nutrition was requested to evaluate patient for positive nursing baseline nutrition screenwith a MST score of 2 or greater Completed visit with patient today as part of face to face care. SUBJECTIVE Ms. Fong is a 89 y.o. 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 She reported that she used to be 300# / 136 kg. Patient's recent weight history is limited and her weight was not taken on admission, though it appears she fluctuated between 82 and 88 kg between January 2023 and January 2024. Patient reported that she has been eating well recently and she denied having any concerns about her nutrition. Current Nutrition: Patient reported that she is eating well. She wondered why there were fewer carbohydrates on her tray than she ordered; discussed her current carbohydrate restriction. Patient denied having other nutrition questions / concerns. Percentage of Meals Eaten for the past 72 hrs: Percent Meals Eaten (%) 10/31/24 1037 100 Food Allergies/Intolerances: None per chart review. OBJECTIVE Current nutrition orders: Dietary Orders (From admission, onward) Start Ordered 10/30/24 1353 Adult Diet Regular; 60 gm Carbs (per meal) (Adult Diet) Diet effective now Question Answer Comment Diet texture: Regular Carbohydrates: 60 gm Carbs (per meal) 10/30/24 1354 Pertinent Labs: Reviewed POC glucose 153-284 mg/dL Lab Results Component Value Date HGBA1C 13.7 (H) 01/19/2024 Last 2 results Lab Units 10/30/24 1048 10/30/24 1018 POTASSIUM P mmol/L 4.7 -- BUN P mg/dL 33* -- CREATININE mg/dL 1.49* -- POC CREATININE mg/dL -- 1.6* ESTIMATED GFR EGFR mL/min/BSA 34* -- ESTIMATED GFR EGFR POCT mL/min/BSA -- 31* Chewing and Swallowing: No issues per patient. Poor dentition noted GI Function:Last BM Date: 10/30/24, [place] Stool Chart: Type 6: Fluffy pieces with ragged edges, amushy stool, Passing Flatus: Yes Edema: Trace to left lower extremity 10/31 Integumentary/Wounds: Lines/Drains/Airways Wound Duration Wound 01/19/24 Incontinence Associated Dermatitis Buttocks and Perineum, groin 285 days Wound 10/30/24 Heel Right;Medial Blister <1 day Wound 10/30/24 Intertriginous Dermatitis Abdomen and breast skin folds <1 day Wound 10/30/24 Pretibial Left;Proximal Wound scab <1 day Medications: Reviewed; include dulcolax, insulin, lubiprostone, Protonix, MiraLAX, senokot-s Anthropometrics: Height: 165 cm (10/30/2024) Current Weight: Last weight available 87.7 kg from 01/23/24 Net IO Since Admission: -360 mL [10/31/24 1248] Weight history: Limited recent weight history 01/29/23-87.3 kg 01/20/24-82.6 kg 01/23/24-87.7 kg ASSESSMENT / PLAN Nutrition Diagnosis: Clinical risk not noted / no concerns requiring intervention identified Malnutrition Assessment: ASPEN Criteria of Malnutrition: Nutritional Status: Malnutrition criteria not met Based on: Energy Intake: No Change Interpretation of Weight Loss: Unable to Assess Body Fat: Normal (Visually assessed) Muscle Mass: Normal (Visually assessed) Estimated Needs: Total Calorie Needs: 1571-4059 calories/day Method to Estimate Energy Needs: Tillman-St Jeor (Basal to Basal + 20%) Weight Used for Equation Calculations: 87.7 kg (Last weight available from 01/23/24) Total Protein Needs: 68 - 86 grams/day (Method to Estimate Protein Needs (g/kg): 1.2 - 1.5 gm/kg) Weight Used to Calculate Protein Needs (Kg): 57 kg (IBW) Nutrition Intervention: Interventions: None needed Monitoring/Evaluation: Nutrition parameter to monitor: Meals/Supplement Intake, Weight Status, Pertinent Labs, and Ascites/Edema Desired Outcome: Consume adequate nutrition orally Maintain weight Recommendations: No changes at this time; continue current nutrition orders Clinical Nutrition will continue to follow. For questions about patient's nutritional care please contact pager [phone] on weekdays 07:30-16:00 or [phone] on weekends/holidays ([facility]). [employer] * Awilda Harley M.S.N., RNavdeepNNavdeep, RN-BC - 10/31/2024 11:53 AM CSTAssociated Order(s): IP CONSULT TO CARE MANAGEMENT; IP CONSULT TO CARE MANAGEMENT Discharge Planning Assessment SUBJECTIVE Assessment Information Referral Data Referral Source: Early Screen for Discharge Planning Referral Name: ESDP = 17 Previous Assessment: Yes Previous assessment done on: 01/21/24 Previous assessment done by: Alberto Duncan RN, CM [employer] Used: No Primary Language: Macedonian [employer] Used: No Person(s) Present During Interview: patient History of Present Illness #1 Fracture Sacrum Closed Initial (HCC) #2 Atrial Fibrillation Unspecified (HCC) #3 Chronic Kidney Disease (CKD), Stage 3 Unspecified (HCC) #4 Diabetes Mellitus Type 2 (HCC) #5 Block Atrioventricular Complete (HCC) #6 Hyperlipidemia Social History Support System: children and friend Primary Caregiver: self Social Drivers of Health with Concerns No concerns present OBJECTIVE Finance/Insurance Primary insurance: MEDICARE A AND B Secondary insurance: [email or web address] benefits: No Advance Directives Legal Decision Maker: Self Advance Directives: N/A Advance Directives Status: N/A Baseline Functional Status Baseline Activities of Daily Living Mobility: Modified independent, Requires aide of device Dressing: Independent Feeding: Independent Bathing: Independent Grooming: Independent Toileting: Independent Behavior: Appropriate, Pleasant, Calm, Cooperative, Oriented Communication: Talks, Understands speaking, Understands Macedonian Shopping: Needs assistance Medication Management: Independent Housekeeping: Needs assistance Meal Prep: Independent Assistive Devices: Eyeglasses, Hearing aid(s), Grab bars - toilet, Other (Comment), Walker - four wheeled, Toilet riser, Tub/shower chair/bench (Electric Scooter, walk in bathtub) Services/Resources: Meals on wheels, Housekeeping, Lawn care, Snow removal Agency Name: TBD Transportation: Support from family Baseline Services/Resources Primary care clinic and provider: Patient Care Team Anisa Matthews C.N.P. External Primary Care Physician Certified Nurse Practitioner 10/30/24 Address: [address] [place] [id number] Services/Resources: Meals on wheels, Housekeeping, Lawn care, Snow removal Additional Resources: Additional Services: NA Anticipated Needs Functional Status: Bathing, Dressing, Grooming/hygiene, Toileting, Transfer to/from bed, chair, etc., Mobility, Meal preparation, Medication set- up/administration, Housekeeping, Shopping, Transportation use (drive car, use taxi/bus) Assistive Devices: Emergency call system Services/Resources: Home health vs [facility] Agency Name: TBD Anticipated Modifications to the Patient's Home: None Transportation Needs: Support from family Does the patient need discharge transport arranged?: No Phone Number for Ride/Caregiver: Jasmyne - daughter [phone] Anticipated Discharge Destination: [place]-Health Care [facility] [place]errals Initiated: Home Medical Care - Admitted Since 10/30/2024 Service Provider Request Status Services Address Phone Fax Patient Preferred [facility] Pending - Request Sent -- [address] [place] [address] [address] [phone] -- [facility] Pending - Request Sent -- [address] [place] [address] [address] [phone] -- [facility] Pending - Request Sent -- [address] [place] [address] [phone] -- [facility] [place] Pending - Request Sent -- [address] [facility] [address] [phone] -- [facility] Pending - Request Sent -- [address] [place] [address] -- [facility] [place] Pending - Request Sent -- [address] [facility] [place] [place] [address] [phone] -- legal entity controller provided Care Management Brochure ([id number]), information regarding the dismissal process, and the Senior Linkage Line ([place] Board on [place]ging) handout. ASSESSMENT / PLAN ASSESSMENT: The legal entity controller met with Hayde Fong to discuss her current hospitalization and home goingneeds. The patient was unaccompanied. The patient was a reliable historian. The role of legal entity controller was reviewed. The patient reviewed her prior level of care and support system. The patient receives support from her daughter, son, and friend . Hayde resides alone in an apartment with level entry. Housekeeping, grocery shopping, meal prep,and other household responsibilities have previously been completed by patient, patient's daughter,and patient's friend. Patient's girlfriend takes her to store in [place] for groceries. Her pharmacy is also in [place] and her meds are on an auto-refill schedule. She states she manages her medications herself. She gets meals from Me[employer] on Wheels once a day, Wednesday through Wednesday, and makes sandwiches or other simple meals for herself at other times. Walks with a 4 wheeled walker. Also has a motorized scooter for outside the home, but prefers the walker. Has a dog daycare provider who comes once a week for housekeeping services. She does not drive but her daughter, friend, and other family drive her as needed. Currently lives in [place] but is trying to move to [place] to be closer to family. Patient has used [facility] for home health services in the past but is not using any services requiring reconnection currently. The aircraft maintenance manager spoke to patient regarding home healthcareversus short term rehab if additional services are needed after discharge. The patient prefers to dismiss home with home healthcare but is open to a custodial facility if that is recommended. The caser shoe parts provided a list of options for both HHC and SNF agencies in her region. The patient requested a call be placed to her daughter to discuss these options. The aircraft maintenance manager spoke with Jasmyne on the phone. Jasmyne reiterated the preference for home health care. She stated if a SNF was needed the preference would be for a SNF location in [place] or [place]. At this time, the care team anticipates the patient will potentially require the following new service(s) to be set up: home healthcare or custodial facility. The patient's potential needs at dismissal based on their home setting, previous needs and responsibilities, homebound status, and relevant assessments were discussed. The patient will be safe and supported to discharge home with [facility] or to a SNF to be determined by course of hospital care when medically ready. Support will be provided by patient's family. legal entity controller recommendations include: home health services and discussing needed assistance withfamily, friends, or neighbors . Pending hospital course and medical readiness, no barriers to dismissal have been identified at this time. The following hospital-based consult orders and/or referrals placed or requested: None. PLAN: The patient and patient's daughter agrees with the following plan. Patient's Anticipated Discharge Destination: Home-Health Care c Transportation upon dismissal will be provided by family--daughter, Jasmyne . legal entity controller encouraged the patient to reach out with any questions/concerns. Care Management provided the patient and patient's daughter with a list of available home healthcare and custodial facility options in the geographic area where the patient resides or requested. [Disclaimers: If applicable, financial disclosures were provided informing the patient and patient's daughter of any ownership and financial relationships. Current insurance coverage was reviewed with the patient and patient's daughter in order to provide in-network options as appropriate.] Preferred vendor(s) are: [facility] for [facility] or [facility] or [facility] for custodial facilities. Referrals will be sent to these vendor(s) and follow up with the p atient and patient's daughter to discuss accepting vendors and confirm service. A progress note with updates and/or transition plan to come. Signed by: Georgi Kimbrough, R.NNavdeep, RN-PATTI 10/31/2024 [employer] * Amisha Ochoa V. PNavdeepT. - 10/31/2024 10:30 AM CST Physical Therapy Inpatient Evaluation/Treatment SUBJECTIVE Patient's Name: Hayde Fong Referring/Attending Provider: Melanie Guzman M.D. Reason for Referral: Physical Therapy Evaluate and Treat Pertinent Medical / Surgical History: has no past medical history on file. has no past surgical history on file. History of Present Illness: Hayde Fong is a 89 y.o. female who was admitted to [facility] in [place] on 10/30/2024 for Fracture Sacrum Closed Initial (HCC) [S32.10XA] Fracture Lumbosacral Spine And Pelvis Closed Initial (HCC) [S32.9XXA]. Relevant Medical History: 89 F PMH IDDM2 , AF ,chronic back pain s/p multiple surgeries w/ spinal stim in place and on chronic opioids, admitted w/ L-sacral ala fracture and L-superior and inferior pubic ramus fractures In setting of a ground level fall being managed conservatively. Precautions Weight Bearing Status: weight bearing as tolerated left lower extremity Other Precautions: Fall risks RST PT/OT Falls screen: Fall in the last 12 months: Yes Did you have an injury with the fall: Yes Are you fearful of falling: No Pain Assessment: Pain Ratin/10 on a 0-10 point scale, Location: left low back, left leg Patient states level of pain is acceptable or tolerable to participate in therapy Pain intervention(s) used to address pain greater than 4: medication administered by RN repositioned breathing exercises Patient/Caregiver Goals: Decrease pain and discharge to a rehab facility Subjective Comments: Agreeable to therapy session. Home Living and Equipment: Lives with: Alone Receives help from: Family and Friend(s) Type of Home: Apartment Home Layout: Able to live on main level with bedroom/bathroom Home Access: Level entry , elevator Bathroom Accessibility: Accessible via walker Shower: Walk in Tub Toilet: Standard height ,Riser with arm rest/handle bars Assistive Device Owned: Four wheeled walker, Single point cane, Scooter Adaptive Equipment Owned: Spring Machine Operator Other DME Owned: Regular recliner, Regular flat bed, Medical alert button Prior Level of Function and Mobility: Basic Activities of Daily Living: Independent Instrumental Activities of Daily Living: Required Assistance Functional Mobility: Modified Independent using a 4ww OBJECTIVE Vitals: Vitals not formally assessed during session. No concerns during chart review and the patient had nosigns or symptoms consistent with vital changes during therapy session. Evaluation Assessments: Strength: Left lower extremity impaired Range of motion: Left lower extremity impaired Balance : Balance: Static Sitting: Good (Maintains balance without support) Dynamic Sitting: Fair (Maintains balance with handheld assist) Static Standing: Poor (Requires assist to maintain balance) Dynamic Standing: Poor (Requires assist to maintain balance) Activity Tolerance: Endurance: Tolerates less than 10 minutes of activity Outcome Measures: [facility] Inpatient Short Form: [facility] Basic Mobility (V.2) How much help from another person do you currently need???If the patient hasn't done an activity recently, how much help from another person do you think he/she would needif he/she tried? 1. Turning from your back to your side while in a flat bed without using bedrails?: A Little 2. Moving from lying on your back to sitting on the side of a flat bed without using bedrails?: A Lot 3. Moving to and from a bed to a chair (including a wheelchair)?: Total 4. Standing up from a chair using your arms (e.g., wheelchair, or bedside chair)?: A Lot 5. To walk in hospital room?: Total 6. Climbing 3-5 steps with a railing?: Total [facility] Basic Mobility (V.2) Raw Score: 10 [facility] Basic Mobility (V.2) Standardized Score: 28.13 Interpretation: Based on scoring guidelines using the raw score value: Those going to home had an average score at or above 18 Those going to facility had an average score at or below 17 Clinicians answer the [facility] Inpatient Short Form based on observed patient activity and/or clinical judgment (patient can be scored without physically performing each activity) Therapeutic Interventions: SUPINE TO SIT: - Assist Level: moderate assistance of 1 at left lower extremity - Device: head of bed elevated and bedrail - Therapist Delivery: assessed, assisted, facilitated, and instructed - Assist/Cues Provided: verbal for adherence to activity precautions, breathing technique, lower extremity movement/management, sequencing, and upper extremity movement/management SIT TO STAND: - Assist Level: moderate assistance of 2 - Device: gait belt and Joy Stedy - Surface: bed - Therapist Delivery: assessed, assisted, facilitated, and instructed - Assist/Cues Provided: verbal and manual for adherence to activity precautions, adherence to weight bearing restrictions, anterior weight shift, breathing technique, device placement, manual facilitation provided for force generation, sequencing, terminal hip extension, upper extremity placement, upright posture, and use of momentum - Surface: bed to bed and chair - Assist Level: moderate assistance of 2 - Device: gait belt and Joy Stedy - Therapist Delivery: assessed, assisted, educated, and instructed - Assist/Cues Provided: verbal for adherence to activity precautions, adherence to weight precautions, breathing techniques, sequencing, and upright posture THERAPEUTIC EXERCISE: Supine Therapeutic Exercise: - Side: bilateral - Mode: active range of motion - Exercises:ankle pumps and quad sets - Repetitions: 10 - Assist/Cues Provided: controlled breathing and pacing Seated Therapeutic Exercise: - Side: bilateral lower extremity(ies) - Mode: active range of motion - Exercises: long arc quads, seated heel raises, and seated toe raises - Repetitions: 10 - Assist/Cues Provided: controlled breathing, full range of motion, and pacing EDUCATION: Provided education on role of physical therapy in the acute setting. Collaborated with patient and/or family on goals and plan of care. Bed Mobility: -Patient instructed on compensatory strategies to improve transfer in/out of bed. Recommendations provided with adaptations for correct sequencing, technique, and modification tools including leg livestock farmer and/or bed adjustments. Functional Transfers: -Provided instruction and cues during functional sit to/from stand transfers, including body alignment to surface, appropriate hand placement, and optimal placement of surgical extremity to optimize safety and technique. DME: -Educated patient/caregiver regarding recommended use of mobility equipment. Weight Bearing: -Patient/Family provided education on weight bearing status/activity restrictions and how that alters mobility including but not limited to: during bed mobility, transfers, and ambulation with the appropriate gait aid. Pursed-Lip Breathing: -Education on how to incorporate pursed lip breathing with breathing in through your nose and out through your mouth slowly with pursed lips. Pursed-lip breathing helps you think about breathing out slowly. Slowing your breathing may help you stay calm when you are short of breath. The patient's status was discussed and the following coordination of care occurred with the RN and OT Co-treat with Occupational Therapy Patient benefitted from having 2 skilled therapists present in order to optimize mobility progression+safety with mobility. OT/PT addressed different goals within treatment session. Patient was left in bedside chair at end of session with call light in reach, all needs met and questions answered. Assessment Discharge Therapy Needs - PT: Ongoing skilled physical therapy If skilled therapy is recommended, skilled therapy can include physical therapy provided by home health, outpatient clinic, or a post-acute facility. The location of these services is determined by the patient's care team in partnership with patient/family. Level of Care Needed - PT: Assistance with transfers (Comment), Assistance with walking and moving around the home, Assistance with bed mobility, Physical assistance needed Barriers to Discharge Home: Fall risk, Limited caregiver support, Current functional status Barriers to Discharge Comments: Lives alone Equipment Recommended - PT: Other (Comment) (pending progress made during therapy . She owns front wheeled walker And four-wheeled walker) From a physical therapy perspective, the level of care above has been recommended for Ms. Fong after hospital discharge. This level of care is based on her functional abilities during today's session. This may change throughout the hospital course and will be updated as appropriate. Clinical Impression: Currently, patient presents with decreased range of motion, decreased strength, increased pain, impaired static balance, impaired dynamic balance, decreased activity tolerance, weight bearing precautions,resulting in the following impaired bed mobility, impaired transfers, impaired gait, impaired ability to complete ADLs. At baseline , patient reports living alone and independent with all mobility using four-wheeled walker.Currently She is requiring moderate assist x 1 for bed mobility , moderate assist x 2 for Sit to stand and surface to surface transfers using a joy stedy . She demonstrates reduced tolerance of Weight bearing on left lower extremity due to current increased pain . Patient is functioning significantly below baseline at this time. Ongoing skilled PT is medically necessary to optimize functional independence for safe return home. Physical therapy treatment is medically necessary to restore and maximize function, maximize safetyand facilitate discharge to home, teach and educate the patient and/or caregivers. Recommendations for mobility/activity while hospitalized: chair 3x/day with assist x2 using joy stedy (2 hours max in chair at a time) Plan PT Plan Comments: Contiue to progress bed mobility , functional transfers using a least restrictivegait devcie . Progress ambulation as appropriate . progress Lower extremity conditioning exercises. Functional Goals: PT Inpatient Goals PT Goal #1: Patient will be able to perform bed mobility using hospital bed features with Supervision to allow for lower BOC . PT Goal #1 Status: Slowly progressing PT Goal #2: Patient will be able to perform transfers with minimal assistx 1 using least restrictive assistive device to be safe to discharge to a lesser care unit . PT Goal #2 Status: Slowly progressing PT Goal #3: Patient will ambulate 50m with modified independence using least restrictive device forsafe in home ambulation. PT Goal #3 Status: Ongoing Progress: Slow progress, limited activity tolerance Hayde Fong has Good rehab potential to meet the expected outcomes in a reasonable period of time. Treatment Plan: Plan: Plan of care initiated PT Amount: 1 visit per day PT Frequency: 5 times per week PT Inpatient Duration : Until goals are met or hospital discharge Requires Inpatient Follow-Up: Yes PT - Next Inpatient Appointment: 11/02/24 Patient agrees with the plan of care and goals. Treatment interventions may include: Treatment/Interventions: Therapeutic exercise, Therapeutic functional activity, Neuromuscular re-education, Gait training, Self-care/home management Billing: Tiered PT Evaluation Codes: Comorbid Conditions: Cardiopulmonary disease, Obesity, Arthritis, Other (Comment) Personal Factors: Age, Body habitus, History of falls, Safety awareness, Needs assistive device, Living situation Examination elements: 3 Clinical Presentation: Evolving Clinical Decision Making: Moderate complexity clinical decision making Time Spent with Patient Evaluations PT Eval - Mod Complexity: 12 min Therapeutic Interventions Therapeutic Activity (min): 22 min Therapeutic Exercise (min): 6 min Time Tracking Total Timed Units (min): 28 min Total Treatment Time (min): 40 min Amisha Ochoa P.T. [employer] * Herbie Hale M.D. - 10/30/2024 1:14 PM CSTAssociated Order(s): IP CONSULT TO ORTHOPEDIC SURGERY Referral Source Emergency Department Chief Complaint -or- Reason for Consult Chief Complaint Patient presents with Fall History of Present Illness Ms. Hayde Fong is a 89 y.o. female with a past medical history significant for AFib on Eliquis, cardiomyopathy, CKD, diabetes on insulin, hyperlipidemia, depression who presented to the [facility] emergency department for evaluation of left hip pain; Orthopedics was consulted evaluation barry. Patient states that she fell around 0200 this morning when she was trying to walk to the bathroom. She states that she fell onto her left side and she immediately had left hip pain. She states she also hit her head, but she denies LOC. She states that she called for help in her neighbor came to help her. She was able to bear some weight immediately after the fall, so she went back to bed. When she woke up this morning, she states that when she tried to bear weight, the pain in her left hip had worsened. She decided to present to [facility] ED for further evaluation. She denies any new numbness or tingling in the left lower extremity. She denies prior pain in the left hip or leg. She uses a walker to ambulate at baseline. Patient endorses anticoagulation. Patient is a lifelong nonsmoker. Patient is DNR/DNI. Past Medical and Surgical History History reviewed. No pertinent past medical history. History reviewed. No pertinent surgical history. Review of Systems A complete 12-point review of systems was performed using patient provide information addition to review of the electronic medical record and is negative with the exception of what is mentioned in the HPI. Social History Tobacco use: Denies Occupation: Retired Medications Reviewed per EMR. Allergies Reviewed per EMR. Vitals Temperature: [36.8 ??C] 36.8 ??C Resp Rate: [18] 18 Blood Pressure: (160-186)/(55-86) 186/86 SpO2: [89 %-97 %] 97 % Height: [165.1 cm] 165.1 cm Pulse Rate: [63-83] 69 No intake/output data recorded. Physical Exam General: No acute distress, answering questions appropriately, alert and oriented to person, place,date, and situation. Cardiovascular: Regular rate and rhythm Lungs: Unlabored breathing Skin: intact, no erythema, swelling, abrasions, open wounds MSK: - LLE: no gross deformity; mild TTP about the hip joint; fires quad, hamstring, TA, GSC, FHL, EHL, peroneals; endorses decreased sensation in left second toe (appears to be patient's baseline) otherwise SILT in tibial, SP, DP, sural, and saphenous nerve distributions; 2+ DP and PT pulses Diagnostics Recent Labs 10/30/24 1048 WBC 11.1 H HGB 12.3 HCT 37.2 MCV 87.7 PLT 132 L Recent Labs 10/30/24 1048 NA 139 CL 104 CREATININE 1.49 H BUN 33 H GLUCOSE 165 H Recent Labs 10/30/24 1048 INR 1.2 PT 12.9 H No results for input(s): SEDRATE, CRP in the last 48 hours. Imaging Studies I have reviewed all the relevant imaging studies to date and have noted the following: X-ray and CT demonstrate fractures of the left superior and inferior pubic rami and left sacral ala Assessment and Plan #1 Left superior and inferior pubic ramus fractures #2 Left sacral ala fracture Ms. Hayde Fong is a 89 y.o. female with a past medical history significant for Fib on Eliquis, cardiomyopathy, CKD, diabetes on insulin, hyperlipidemia, depression who presented to the [facility] emergency department for evaluation of left hip pain; Orthopedics was consulted evaluation and recommendations. In brief, this patient sustained a ground level fall early this morning. She has had pain in her left hip and pain with weight-bearing since the fall. Imaging demonstrates left superior and inferior pubic ramus fractures and a left sacral ala fracture. This is consistent with an LC 1 fracture pattern. Fortunately, this is a closed fracture in the patient remains neurovascularly intact. Orthopedics recommends patient to remain weight-bearing as tolerated. She may use a walker or cane for mobility. Recommendations/Plan: - No indication for acute operative intervention at this time - Weight-bearing as tolerated BLE - Patient will likely benefit from admission to medicine service for pain control and physical therapy evaluation - We will arrange outpatient follow up with [facility] Please contact [facility] ([facility]) at [phone] with any questions or concerns regarding this patient. If outside of 06:00 - 18:00 on weekdays or any time on the weekend, please contact the [facility] OrthopedicSurgery house resident tone cabinet assembler at [phone] Electronically signed by: Herbie Hale M.D. 10/30/24 1:14 PM [employer] documented in this encounter Nursing Notes * Sonali Yi R.N. - 11/07/2024 12:12 PM CST Shift Goals: Clinical Goals for the Shift: to discharge to [facility] Identify possible barriers to meeting goals/advancing plan of care: None End of Shift Summary: Discharge Nursing Note AVS and Discharge Summary reviewed. Discharge education provided including medication instructions,follow-up plan, and when to seek emergency care. Questions answered and patient/caregiver verbalized understanding. Patient and all personal belongings were discharged to custodial facility, transport provided by transportation company. Nurse to nurse report called. Vital signs stable prior to discharge and IV access removed. [employer] * Laura Montes De Oca R.N. - 11/06/2024 5:51 PM CST Shift Goals: Clinical Goals for the Shift: Pain management Identify possible barriers to meeting goals/advancing plan of care: Renal function End of Shift Summary: Patient's urine output continued to improve throughout the shift with last bladder scan showing 0 cc's in bladder post-void. Patient was continent throughout shift and felt urgency then used the commode. Pain controlled. No sign of infection. Discharge did not happen today butis scheduled for tomorrow. Problem: PAIN - ADULT Goal: PT VERBALIZES/DEMONSTRATES ADEQUATE COMFORT LEVEL OR BASELINE Outcome: Progressing Problem: INFECTION - ADULT Goal: Absence of infection during hospitalization Outcome: Progressing Problem: DISCHARGE PLANNING Goal: Patient discharge needs identified Outcome: Progressing Problem: Incontinence and/or Moisture Goal: Skin integrity is maintained or improved Outcome: Progressing Electronically signed by: Laura Montes De Oca R.N. 11/06/24 5:55 PM [employer] * Cindy Rodriguez MPAS, P.A.-C. - 11/02/2024 12:20 PM CST [facility] service was previously consulted regarding Hayde's left sided LC I Pelvic ring injury sustained on 10/30/24 after a ground level fall. Please see signed consultation note by Dr. Herbie Hale for further details. Imaging studies were reviewed. She has stable injury pattern that we would recommend non operative management outlined below: - Weight bearing: full WBAT LLE, gait aid (walker) for ambulatory assistance/fall prevention - Immobilization: none required for pelvic ring injury - ROM: unrestricted motion left lower extremity. With her fracture pattern, we would anticipate left sided groin pain and left low back pain, particularly with hip flexion motions ([id number], walking, etc). This will improve with time as her fractures continue to heal - PT/OT - Advance in activities as tolerated - Pain: OTC medications, ice/heat, topicals PRN - DVT prophylaxis: on Eliquis - Disposition: per primary service FOLLOW UP: approximately 6 weeks with repeat xrays pelvis prior, we will coordinate with endocrinology consultation for fragility fracture work up. We will facilitate this appointment. Discharge recommendations have been updated in the discharge navigator. [facility] service will sign off. Please re-engage ortho if concern for debilitating pelvis pain that isresulting in bed bound status despite several attempts with physical therapy. Please contact [facility] ([facility]) at [phone] with any questions or concerns regarding this patient. If outside of 06:00 - 18:00 on weekdays or any time on the weekend, please contact the [facility] OrthopedicSurgery house resident tone cabinet assembler at [phone] [employer] * Luis Miguel Ma, M.P.H., R.N. - 11/01/2024 5:52 AM CST Shift Goals: Clinical Goals for the Shift: Patient will have adequate pain control to tolerate turns and gettingup to chair. Identify possible barriers to meeting goals/advancing plan of care: pain management End of Shift Summary: Patient AOx3 and VSS. Pain managed by scheduled and PRN meds. Patient calm and cooperative with cares. No falls overnight. Problem: SAFETY ADULT Goal: Maintain a safe environment Outcome: Progressing Problem: SAFETY ADULT - RISK FOR FALL AND OR FALL INJURY Goal: Patient remains free from fall/fall injury Outcome: Progressing [employer] * Debora Crawford R.N. - 10/31/2024 6:03 PM CST Shift Goals: Clinical Goals for the Shift: Patient will have adequate pain control to tolerate turns and gettingup to chair. Identify possible barriers to meeting goals/advancing plan of care: Injury/trauma on L hip End of Shift Summary: Patient AxOx3, VSS on RA. Patient endorsed no pain when resting in supine position and severe pain oh L hip when hinging or turning in bed. Patient was premedicated with PRN Oxycodone and was up to chair via Joy Steady with assistance from PT this AM. Patient tolerated this well. Pictures taken of wounds and wound cares done per orders. Patient had one BM this shift. Patient was pleasant and cooperative with cares and remained free from falls this shift. Problem: SAFETY ADULT - RISK FOR FALL AND OR FALL INJURY Goal: Patient remains free from fall/fall injury Outcome: Progressing Problem: PAIN - ADULT Goal: PT VERBALIZES/DEMONSTRATES ADEQUATE COMFORT LEVEL OR BASELINE Outcome: Progressing [employer] documented in this encounter ED Notes * Haresh Blackwood R.N. - 10/30/2024 9:28 AM CST Pt presents to ED from her apartment in [place] after ground level fall this am approx 1-2am. Pt reports their legs giving out. Pt was able to return to bed with a walker after this, does report hitting head, denies loc, is on thinners. Pt this am ambulated to toilet where they were unable to stand. Pt reports scooting on my bottom back to bed where they called for help. A neighbor heard her yelling, and called for assistance. Pt A&Ox3, reports L hip pain 10/10, CMWS intact +2 pulses,VSS Haresh Blackwood R.N. 10/30/24 0939 [employer] * Andrés Lee P.A.-C. - 10/30/2024 9:16 AM CST CHIEF COMPLAINT Fall HPI Hayde Fong is a 89 y.o. female with a medical history of atrial fibrillation on Eliquis, nonischemic cardiomyopathy, stage III CKD, type 2 diabetes on insulin, HFrEF (EF 56% 2022) , presenting to the [facility] after a fall. The patient describes getting up to use the bathroom this morning at approximately 0100, when her legs gave out and she subsequently fell onto left side onto her back. Pertinent information includes that the fall was not witnessed, the patient did hit their head, but did have LOC, numbness, tingling, focal weakness, saddle anesthesia, or incontinence, and is not on any anticoagulation. She was able to get into bed by scooter on [her] bottom before calling out loudly, at which time a neighbor came and helped her. They now complain of left hip pain that has been constant and worsening since. Associated symptoms include headache, back pain, and neck pain,, while denying any fever, chills, vision changes,shortness of breath, chest pain, nausea, emesis, abdominal pain, or other complaints. Currently, they rate their pain as a 0/10 at rest, noting a 10/10 with movement, with a sharp aching quality, while denying radiation. They note movement as provoking, while denying any palliating factors, other than fentanyl given by EMS History Social: From [place] History provided by: Patient, ems, daughter and medical records History Limitations: Possible dementia? Interpretor: None MEDICAL HISTORY History reviewed. No pertinent past medical history. SURGICAL HISTORY History reviewed. No pertinent surgical history. FAMILY HISTORY No family history on file. SOCIAL HISTORY Social History Socioeconomic History Marital status: Single Tobacco Use Smoking status: Never Smokeless tobacco: Never Vaping Use Vaping status: never used Substance and Sexual Activity Alcohol use: Not Currently Drug use: Never Sexual activity: Defer Social Drivers of Health Food Insecurity: No Food Insecurity (01/20/2024) Hunger Vital Sign Worried About Running Out of Food in the Last Year: Never true Ran Out of Food in the Last Year: Never true Transportation Needs: No Transportation Needs (01/20/2024) PRAPARE - Transportation Lack of Transportation (Medical): No Lack of Transportation (Non-Medical): No Intimate Partner Violence: Patient Unable To Answer (01/20/2024) Humiliation, Afraid, Rape, and Kick questionnaire Fear of Current or Ex-Partner: Patient unable to answer Emotionally Abused: Patient unable to answer Physically Abused: Patient unable to answer Sexually Abused: Patient unable to answer Housing Stability: Low Risk (01/20/2024) Housing Stability Housing: Living Situation: I have a steady place to live REVIEW OF SYSTEMS Gen: Fall Skin: Neck/Spine: Neck pain HENT: Eyes: Cards: Pulm: Abd: Rectal: Pelvis/: left hip pain MSK: Back pain Neuro: Psych: ? PHYSICAL EXAM Vitals: 10/30/24 1130 BP: Pulse: 68 Resp: Temp: SpO2: 96% Constitutional: Nursing note and vitals reviewed. No distress. HENT: Head: Normocephalic and atraumatic. Mouth/Throat: Mucous membranes are moist. Poor dentition Eyes: Conjunctivae and EOM are normal. Pupils are equal, round, and reactive to light. Neck: No midline spinal tenderness. No paraspinal muscle tenderness. No step offs. No overlying signs of trauma Cardiovascular: Normal rate and normal heart sounds. Pulses are palpable. Capillary refill: takes less than 3 seconds No chest wall tenderness Pulmonary/Chest: Effort normal and breath sounds normal. No tachypnea. She has no wheezes. Abdominal: Soft. There is no abdominal tenderness. There is no rebound and no guarding. Musculoskeletal: General: Tenderness present. Comments: LLE: Tenderness to palpation of left lateral hip and to pelvic jostling. No tenderness topalpation of lower leg. No overlying signs of trauma or step offs. No erythema, streaking, warmth or signs of infection. Soft compartments. Pulses intact. Sensation intact. Limited to no rom of hip. 5/5 strength to to wiggling and flexion and extension of ankle BACK: No midline spinal tenderness. No paraspinal muscle tenderness. No step offs. No overlying signs of trauma . Lower back is somewhat tender arising from hip/pelvis Neurological: Alert. Skin: Skin is warm and dry. She is not diaphoretic. Psychiatric: She has a normal mood and affect. ? DIFFERENTIAL & PLAN My working diagnosis at this time is mechanical fall with head strike and patient above 65, with subsequent hematoma given history and reassuring exam. However, my differential at this time is musculoskeletal strain, cervical strain, arrhythmia, syncope, SAH, bleed, among others. Given age will getCT. Given concern for bony injury after fall, x-rays ordered. I did consider full trauma scan including IV contrast, but we will defer for non con given lack of exact history. However, radiology states they will use IV contrast if any obvious abnormality is seen or there is concern for internal bleeding. ASSESSMENT Patient's vital signs unremarkable showing no fevers, significant hypotension / hypertension, tachycardia, or hypoxia. Please see the ED course for additional evaluation, imaging and laboratory findings, and further medical decision-making. ED COURSE ED Course as of 10/30/24 1227 Mon Oct 30, 2024 0916 I reviewed the patient's chart. This includes but is not limited to prior inpatient records, prior outpatient and office records, prior radiology scans, an outside ED reports. 18 I met with the patient for an initial history and physical exam 0939 Spoke briefly with Radiology. 0940 Pain Score: 10 - Worst possible pain With movement, but notes 0 pain without. Did receive 50 of fentanyl EN route 1002 Spoke with radiology who reports pelvic fracture. Ortho consultation placed 1002 Patient is still at imaging at this time 1002 Spoke with poa . Confirms DNR DNI status. I updated her on pelvic fracture, in the fact that we were early days in terms of the rest of her workup. 1005 POA (patient's daughter) would like to pass along that typically when her mother is admitted, there are multiple medication changes that affects her daily life as an outpatient. They would like to mitigate this and minimalize any medication changes, and would rather defer any at this time if possible 1010 Baseline blood work and an EKG ordered 1041 I rechecked on the patient 1046 Ortho here to see patient 1057 Leukocytes(!): 11.1 1057 Neutrophils(!): 9.70 1113 Creatinine(!): 1.49 1115 Spoke with ortho, they recommend weight-bearing as tolerated, nonop, and orthopedics will f/u with her outpatient in 4-[address] Abdomen Pelvis without and with IV Contrast Mildly displaced acute fractures in the left pelvis and sacrum, with associated blood products and intramuscular hematomas. No active hemorrhage. 1137 CT Head without IV Contrast Left parietal posttraumatic extra cranial soft tissue swelling with small soft tissue hematoma. No subjacent calvarial fracture. No acute intracranial findings. 1140 CT Cervical Spine without IV Contrast Multilevel cervical degenerative spondylotic changes. No cervical vertebral body fracture detected.Prevertebral soft tissues within normal limits. Stable spondylotic changes with canal and bony neural foraminal narrowing, as described, unchanged from 01/19/2024. 1140 CT Thoracic and Lumbar Spine by Reconstruction 1. Negative for acute traumatic finding in the thoracolumbar spine. 2. Spondylotic changes including advanced spinal canal narrowing L4-L5 in addition to multilevel upto advanced neural foraminal narrowing as described and unchanged since 01/19/2024. 1140 I rechecked on the patient 1154 Ultimately patient will need to be admitted for pain control, physical therapy and possible placement versus home with the pain meds in a few days 1154 Patient does have pelvic and sacral fractures, but do not believe she necessarily qualifies for traumatic surgery workup. 1158 Spoke with the patient's daughter who has power of family law attorney who agrees with the plan of care 1212 Admission handoff is complete Final Diagnoses: as of 10/30/24 1227 Fracture Sacrum Closed Initial (HCC) Fracture Lumbosacral Spine And Pelvis Closed Initial (HCC) DIAGNOSIS ? Andrés Lee PA-C pager: [phone] [facility] Emergency Department [address] [place] [phone] Andrés Lee P.A.-C. 10/30/24 1227 [employer] documented in this encounter Miscellaneous Notes * Hospital Course - Joshua Lafleur Jr., M.D. 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 Had a ground level fall when legs gave out, also hitting head - down for about 1 hour before calling fire dept. Then, able to ambulate some but next day unable to ambulate 2/2 LLE pain (from hip down) which is why she presented to the ED. In the ED, she remained hemodynamically stable except for hypertension with systolic up to 180s. Labs w/ thrombocytopenia, slight leukocytosis with neutrophilicpredominance, stable chronic kidney disease labs. Trauma imaging showed mildly displaced acute leftpelvis/sacrum fractures with associated intramuscular hematomas with no evidence of active bleeding. Orthopedic surgery consulted and recommended non-operative management w/ medicine admission for donnie n control and PT/OT. On the medicine service, pain managed w/ oxycodone, acetaminophen, and topicals. She worked with PT/OT and did require significant assistance with movement, requiring custodial placement following discharge. Of note, anticoagulation initially held 2/2 IM hematomas; hemoglobin subsequently neo ined stable and AC restarted on 11/01. Also of note, she had a mild Cr bump from a recent baseline of about 1.5 to a max of 2.06, w/ subsequent downtrend.[place] to be 2/2 venous congestion from holding diuresis. Improved w/ reinitiation of furosemide 40 mg PO daily. She had a subsequent increase in creatinine again, which was thought to be due to combination of urinary retention, urinary tract infection based on pyuria and suprapubic abdominal pain, and prerenal etiologies. This improved with scheduled voiding trials, intermittent catheterization, initiation of treatment for UTI, and intermittent fluid boluses. At the time of discharge the patient was spontaneously emptying her bladder and had improving renal parameters. She was discharged to SNF in stable condition on 11/06/2024. [employer]SEM[employer]OR [employer]SEM[employer] documented in this encounter Plan of Treatment Not on file documented as of this encounter Procedures Procedure Name Priority Date/Time Associated Diagnosis Comments GLUCOSE POCT, B Routine 11/07/2024 11:46 AM [employer] GLUCOSE POCT, B Routine 11/07/2024 8:58 AM [employer] RENAL FUNCTION PANEL, S Timed 11/07/2024 4:56 AM [employer] CBC WITH DIFFERENTIAL, B Timed 11/07/2024 4:56 AM [employer] GLUCOSE POCT, B Routine 11/06/2024 8:49 PM [employer] CYSTATIN C WITH EGFR Timed 11/06/2024 5:18 PM [employer] BASIC METABOLIC PANEL, S/P Timed 11/06/2024 5:18 PM [employer] GLUCOSE POCT, B Routine 11/06/2024 4:52 PM [employer] GLUCOSE POCT, B Routine 11/06/2024 12:43 PM [employer] CYSTATIN C WITH EGFR Timed 11/06/2024 7:59 AM [employer] BASIC METABOLIC PANEL, S/P Timed 11/06/2024 7:59 AM [employer] GLUCOSE POCT, B Routine 11/06/2024 7:50 AM [employer] RENAL FUNCTION PANEL, S Routine 11/05/2024 10:31 PM [employer] GLUCOSE POCT, B Routine 11/05/2024 9:28 PM [employer] GLUCOSE POCT, B Routine 11/05/2024 5:45 PM [employer] BACTERIAL CULTURE, AEROBIC + SUSC, URINE Routine 11/05/2024 4:26 PM [employer] GLUCOSE POCT, B Routine 11/05/2024 1:52 PM [employer] DIPSTICK, U Routine 11/05/2024 11:55 AM [employer] MICROSCOPIC MANUAL Routine 11/05/2024 11:55 AM [employer] PH, U Routine 11/05/2024 11:55 AM [employer] OSMOLALITY, U Routine 11/05/2024 11:55 AM [employer] URINALYSIS WITH MICROSCOPIC Routine 11/05/2024 11:55 AM [employer] US KIDNEYS BILATERAL WITH BLADDER RAD - Timed (for specific dates/times) 11/05/2024 8:36 AM [employer] GLUCOSE POCT, B Routine 11/05/2024 7:59 AM [employer] CYSTATIN C WITH EGFR Timed 11/05/2024 7:13 AM [employer] CBC WITH DIFFERENTIAL, B Timed 11/05/2024 7:13 AM [employer] PHOSPHORUS (INORGANIC), S Timed 11/05/2024 7:13 AM [employer] MAGNESIUM, S Timed 11/05/2024 7:13 AM [employer] CREATINE KINASE (CK), S Timed 11/05/2024 7:13 AM [employer] BASIC METABOLIC PANEL, S/P Timed 11/05/2024 7:13 AM [employer] BASIC METABOLIC PANEL, S/P Routine 11/04/2024 10:43 PM [employer] GLUCOSE POCT, B Routine 11/04/2024 9:58 PM [employer] GLUCOSE POCT, B Routine 11/04/2024 5:28 PM [employer] GLUCOSE POCT, B Routine 11/04/2024 1:24 PM [employer] GLUCOSE POCT, B Routine 11/04/2024 7:35 AM [employer] CBC WITH DIFFERENTIAL, B Routine 11/03/2024 10:27 PM [employer] BASIC METABOLIC PANEL, S/P Routine 11/03/2024 10:27 PM [employer] GLUCOSE POCT, B Routine 11/03/2024 9:02 PM [employer] GLUCOSE POCT, B Routine 11/03/2024 4:59 PM [employer] GLUCOSE POCT, B Routine 11/03/2024 12:21 PM [employer] GLUCOSE POCT, B Routine 11/03/2024 9:16 AM [employer] CBC WITH DIFFERENTIAL, B Routine 11/02/2024 10:14 PM [employer] HEMOGLOBIN A1C, B Routine 11/02/2024 10:14 PM [employer] BASIC METABOLIC PANEL, S/P Routine 11/02/2024 10:14 PM [employer] GLUCOSE POCT, B Routine 11/02/2024 9:58 PM [employer] GLUCOSE POCT, B Routine 11/02/2024 4:44 PM [employer] GLUCOSE POCT, B Routine 11/02/2024 2:00 PM [employer] GLUCOSE POCT, B Routine 11/02/2024 9:12 AM [employer] CBC WITH DIFFERENTIAL, B Routine 11/01/2024 10:54 PM [employer] BASIC METABOLIC PANEL, S/P Routine 11/01/2024 10:54 PM [employer] GLUCOSE POCT, B Routine 11/01/2024 9:27 PM [employer] GLUCOSE POCT, B Routine 11/01/2024 8:28 PM [employer] GLUCOSE POCT, B Routine 11/01/2024 7:47 PM [employer] GLUCOSE POCT, B Routine 11/01/2024 5:30 PM [employer] GLUCOSE POCT, B Routine 11/01/2024 2:14 PM [employer] DIPSTICK, U Routine 11/01/2024 9:47 AM [employer] MICROSCOPIC AUTOMATED Routine 11/01/2024 9:47 AM [employer] PH, U Routine 11/01/2024 9:47 AM [employer] OSMOLALITY, U Routine 11/01/2024 9:47 AM [employer] URINALYSIS WITH MICROSCOPIC Routine 11/01/2024 9:47 AM [employer] GLUCOSE POCT, B Routine 11/01/2024 7:27 AM [employer] CBC WITH DIFFERENTIAL, B Routine 10/31/2024 10:31 PM [employer] BASIC METABOLIC PANEL, S/P Routine 10/31/2024 10:31 PM [employer] GLUCOSE POCT, B Routine 10/31/2024 8:50 PM [employer] GLUCOSE POCT, B Routine 10/31/2024 5:50 PM [employer] GLUCOSE POCT, B Routine 10/31/2024 12:43 PM [employer] GLUCOSE POCT, B Routine 10/31/2024 8:06 AM [employer] CBC WITH DIFFERENTIAL, B Routine 10/30/2024 10:26 PM [employer] GLUCOSE POCT, B Routine 10/30/2024 9:22 PM [employer] GLUCOSE POCT, B Routine 10/30/2024 5:52 PM [employer] DX HIP RIGHT WITH MAG MARKER ANTERIOR POSTERIOR PROXIMAL 1 VIEW RAD - Semiurgent (Fast; most ED patients; some inpatients) 10/30/2024 12:40 PM [employer] DX CHEST 1 VIEW RAD - Semiurgent (Fast; most ED patients; some inpatients) 10/30/2024 12:40 PM [employer] DX FEMUR LEFT 2 VIEWS RAD - Semiurgent (Fast; most ED patients; some inpatients) 10/30/2024 12:40 PM [employer] DX PELVIS 3+ VIEWS RAD - Semiurgent (Fast; most ED patients; some inpatients) 10/30/2024 12:40 PM [employer] GLUCOSE POCT, B Routine 10/30/2024 11:37 AM [employer] ECG Routine 10/30/2024 10:52 AM [employer] PROTHROMBIN TIME (PT), P STAT 10/30/2024 10:48 AM [employer] CBC WITH DIFFERENTIAL, B STAT 10/30/2024 10:48 AM [employer] TYPE AND SCREEN STAT 10/30/2024 10:48 AM [employer] BASIC METABOLIC PANEL, S/P STAT 10/30/2024 10:48 AM [employer] CT ABDOMEN PELVIS WITHOUT AND WITH IV CONTRAST RAD - Semiurgent (Fast; most ED patients; some inpatients) 10/30/2024 10:42 AM SUPER[employer]OR [employer] CT THORACIC AND LUMBAR SPINE BY RECONSTRUCTION RAD - Semiurgent (Fast; most ED patients; some inpatients) 10/30/2024 10:42 AM SUPER[employer]OR [employer] CT CERVICAL SPINE WITHOUT IV CONTRAST RAD - Emergent (Fastest; for the most critically ill patients) 10/30/2024 10:42 AM SUPERVISOR [employer] CT CHEST WITHOUT IV CONTRAST RAD - Emergent (Fastest; for the most critically ill patients) 10/30/2024 10:42 AM SUPER[employer]OR [employer] CT HEAD WITHOUT IV CONTRAST RAD - Semiurgent (Fast; most ED patients; some inpatients) 10/30/2024 10:42 AM [employer] CREATININE, POCT, B Routine 10/30/2024 10:18 AM [employer] CREATININE, POCT, B Routine 10/30/2024 10:18 AM [employer] documented in this encounter Results * (ABNORMAL) Glucose, POCT (11/07/2024 11:46 AM [employer]) Glucose, POCT, B 182(H) 70 - 140 mg/dL 11/07/2024 11:58 AM [employer] PCLX Site Capillary 11/07/2024 11:58 AM [employer] PCLX Last Intake 3-4 hours 11/07/2024 11:58 AM [employer] PCLX Blood 11/07/2024 11:4 6 AM [employer] 11/07/2024 11:58 AM [employer] us Unknown Provider LAB POCT ORDERABLES-MANUAL Echo l Result Performing Organization Address City/[facility]/ZIP Co de Phone Number POC [facility] [address] [place] [address], [facility] PCLX [facility] POC [address] [place] [address] * (ABNORMAL) Glucose, POCT (11/07/2024 8:58 AM SU[employer]) Pathologist [facility] Glucose, POCT, B 197(H) 70 - 140 mg/dL 11/07/2024 9:04 AM [employer] PCLX Site Capillary 11/07/2024 9:04 AM [employer] PCLX Last Intake > 4 hours 11/07/2024 9:04 AM [employer] PCLX Blood 11/07/2024 8:58 AM [employer] 11/07/2024 9:04 AM [employer] us Unknown Provider LAB POCT ORDERABLES-MANUAL Echo l Result Performing Organization Address [facility]/ZIP Co de Phone Number POC [facility] [address] [place] [address], [facility] PCLX [facility] POC [address] [place] [address] * (ABNORMAL) CBC with Differential, Blood (11/07/2024 4:56 AM [employer]) Hemoglobin 11.1(L) 11.6 - 15.0 g/dL 11/07/2024 5:53 AM [employer] DTL Hematocrit 34.4(L) 35.5 - 44.9 % 11/07/2024 5:53 AM [employer] DTL Erythrocytes 3.88(L) 3.92 - 5.13 x10(12)/L 11/07/2024 5:53 AM [employer] DTL MCV 88.7 78.2 - 97.9 fL 11/07/2024 5:53 AM [employer] DTL RBC Distrib Width 14.1 12.2 - 16.1 % 11/07/2024 5:53 AM [employer] DTL Platelet Count 205 157 - 371 x10(9)/L 11/07/2024 5:53 AM [employer] DTL Leukocytes 6.1 3.4 - 9.6 x10(9)/L 11/07/2024 5:53 AM [employer] DTL Neutrophils 2.91 1.56 - 6.45 x10(9)/L 11/07/2024 5:53 AM [employer] DHPM Lymphocytes 2.11 0.95 - 3.07 x10(9)/L 11/07/2024 5:53 AM [employer] DTL Monocytes 0.64 0.26 - 0.81 x10(9)/L 11/07/2024 5:53 AM [employer] DTL Eosinophils 0.39 0.03 - 0.48 x10(9)/L 11/07/2024 5:53 AM [employer] DTL Basophils 0.04 0.01 - 0.08 x10(9)/L 11/07/2024 5:53 AM [employer] DTL Blood (Blood, Venous) 11/07/2024 4:56 AM [employer] 11/07/2024 5:46 AM [employer] us Joshua Lafleur Jr., M.D. LAB BLOOD ADD-ON Final Result [facility] [address] [place] [address], [facility] DTL [facility] [address] [place] [address] [facility] [address] [place] [address] * (ABNORMAL) Renal Function Panel (11/07/2024 4:56 AM SU[employer]) Pathologist [facility] Potassium, S 4.8 3.6 - 5.2 mmol/L 11/07/2024 6:17 AM [employer] DTL Sodium, S 139 135 - 145 mmol/L 11/07/2024 6:17 AM [employer] DTL Chloride, S 103 98 - 107 mmol/L 11/07/2024 6:17 AM [employer] DTL Bicarbonate, S 25 22 - 29 mmol/L 11/07/2024 6:17 AM [employer] DTL Anion Gap 11 7 - 15 11/07/2024 6:17 AM [employer] DTL BUN (Blood Urea Nitrogen), S 59(H) 6 - 21 mg/dL 11/07/2024 6:17 AM [employer] DTL Creatinine 1.81(H) 0.59 - 1.04 mg/dL 11/07/2024 6:17 AM [employer] DTL Estimated GFR (eGFR) 27(L) >=60 mL/min/BSA 11/07/2024 6:17 AM [employer] DTL Comment: Estimated GFR calculated using the 2020 CKD_EPI creatinine equation. Calcium, Total, S 9.1 8.8 - 10.2 mg/dL 11/07/2024 6:17 AM [employer] DTL Glucose, S 179(H) 70 - 140 mg/dL 11/07/2024 6:17 AM [employer] DTL Albumin, S 3.1(L) 3.5 - 5.0 g/dL 11/07/2024 6:17 AM [employer] DTL Phosphorus (Inorganic), S 4.5 2.5 - 4.5 mg/dL 11/07/2024 6:17 AM [employer] DTL Blood (Blood, Venous) 11/07/2024 4:56 AM [employer] 11/07/2024 5:57 AM [employer] us Joshua Lafleur Jr., M.D. LAB BLOOD ADD-ON Final Result Performing Organization Address City/[facility] Co de Phone Number [address] [address], [facility] [address] [address] * Glucose, POCT (11/06/2024 8:49 PM [employer]) Glucose, POCT, B 132 70 - 140 mg/dL 11/06/2024 9:15 PM [employer] PCLX Site Capillary 11/06/2024 9:15 PM [employer] PCLX Last Intake 2-3 hours 11/06/2024 9:15 PM [employer] PCLX Blood 11/06/2024 8:49 PM [employer] 11/06/2024 9:15 PM [employer] us Unknown Provider LAB POCT ORDERABLES-MANUAL Echo l Result POC [facility] [address] [place] [address], [facility] PCLX [facility] POC [address] [place] [address] * (ABNORMAL) Cystatin C with Estimated GFR (11/06/2024 5:18 PM [employer]) Pathologist [facility] eGFR by Cystatin C 15(L) >60 mL/min/BSA 11/06/2024 6:48 PM [employer] DTL Comment: Estimated GFR calculated using the [...] 0.67 - 1.21 mg/L 11/06/2024 6:48 PM [employer] DTL Blood (Blood, Venous) 11/06/2024 5:18 PM [employer] 11/06/2024 6:03 PM [employer] Joshua Lafleur Jr., M.D. LAB BLOOD ADD-ON Final Result [facility] [address] [place] [address], [facility] DTL [facility] [address] [place] [address] * (ABNORMAL) Basic Metabolic Panel (11/06/2024 5:18 PM SU[employer]) Pathologist [facility] Potassium, S 5.0 3.6 - 5.2 mmol/L 11/06/2024 6:48 PM [employer] DTL Sodium, S 138 135 - 145 mmol/L 11/06/2024 6:48 PM [employer] DTL Chloride, S 102 98 - 107 mmol/L 11/06/2024 6:48 PM [employer] DTL Bicarbonate, S 24 22 - 29 mmol/L 11/06/2024 6:48 PM [employer] DTL Anion Gap 12 7 - 15 11/06/2024 6:48 PM [employer] DTL BUN (Blood Urea Nitrogen), S 58(H) 6 - 21 mg/dL 11/06/2024 6:48 PM [employer] DTL Creatinine 1.93(H) 0.59 - 1.04 mg/dL 11/06/2024 6:48 PM [employer] DTL Estimated GFR (eGFR) 25(L) >=60 mL/min/BSA 11/06/2024 6:48 PM [employer] DTL Comment: Estimated GFR calculated using the 2020 CKD_EPI creatinine equation. Calcium, Total, S 8.9 8.8 - 10.2 mg/dL 11/06/2024 6:48 PM [employer] DTL Glucose, S 150(H) 70 - 140 mg/dL 11/06/2024 6:48 PM [employer] DTL Blood (Blood, Venous) 11/06/2024 5:18 PM [employer] 11/06/2024 6:03 PM [employer] us Joshua Lafleur Jr., M.D. LAB BLOOD ADD-ON Final Result Performing Organization Address [facility]/ZIP Co de Phone Number [facility] [address] [place] [address], [facility] [address] [place] [address] * (ABNORMAL) Glucose, POCT (11/06/2024 4:52 PM [employer]) Pathologist [facility] Glucose, POCT, B 149(H) 70 - 140 mg/dL 11/06/2024 4:55 PM [employer] PCLX Site Capillary 11/06/2024 4:55 PM [employer] PCLX Last Intake 3-4 hours 11/06/2024 4:55 PM [employer] PCLX Blood 11/06/2024 4:52 PM [employer] 11/06/2024 4:56 PM [employer] us Unknown Provider LAB POCT ORDERABLES-MANUAL Echo l Result Performing Organization Address City/[facility]/ZIP Co de Phone Number POC [facility] [address] [place] [address], [place] PCLX [facility] [address] [place] [address] * (ABNORMAL) Glucose, POCT (11/06/2024 12:43 PM [employer]) Glucose, POCT, B 203(H) 70 - 140 mg/dL 11/06/2024 12:45 PM [employer] PCLX Site Capillary 11/06/2024 12:45 PM [employer] PCLX Last Intake 3-4 hours 11/06/2024 12:45 PM [employer] PCLX Blood 11/06/2024 12:4 3 PM [employer] 11/06/2024 12:45 PM [employer] us Unknown Provider LAB POCT ORDERABLES-MANUAL Echo l Result Performing Organization Address City/[facility]/ZIP Co de Phone Number POC [facility] [address] [place] [address], [facility] PCLX [facility] POC [address] [place] [address] * (ABNORMAL) Cystatin C with Estimated GFR (11/06/2024 7:59 AM [employer]) Pathologist [facility] eGFR by Cystatin C 14(L) >60 mL/min/BSA 11/06/2024 9:04 AM [employer] DTL Comment: Estimated GFR calculated using the [...] lower with the new assay. Cystatin C 3.25(H) 0.67 - 1.21 mg/L 11/06/2024 9:04 AM [employer] DTL Blood (Blood, Venous) 11/06/2024 7:59 AM [employer] 11/06/2024 8:42 AM [employer] us Joshua Lafleur Jr., M.D. LAB BLOOD ADD-ON Final Result Performing Organization Address City/[facility]/ZIP Co de Phone Number [facility] [address] [place] [address], [place] DTL [facility] [address] [place] [address] * (ABNORMAL) Basic Metabolic Panel (11/06/2024 7:59 AM SU[employer]) Pathologist [facility] Potassium, S 4.8 3.6 - 5.2 mmol/L 11/06/2024 9:04 AM [employer] DTL Sodium, S 136 135 - 145 mmol/L 11/06/2024 9:04 AM [employer] DTL Chloride, S 101 98 - 107 mmol/L 11/06/2024 9:04 AM [employer] DTL Bicarbonate, S 27 22 - 29 mmol/L 11/06/2024 9:04 AM [employer] DTL Anion Gap 8 7 - 15 11/06/2024 9:04 AM [employer] DTL BUN (Blood Urea Nitrogen), S 55(H) 6 - 21 mg/dL 11/06/2024 9:04 AM [employer] DTL Creatinine 2.11(H) 0.59 - 1.04 mg/dL 11/06/2024 9:04 AM [employer] DTL Estimated GFR (eGFR) 22(L) >=60 mL/min/BSA 11/06/2024 9:04 AM [employer] DTL Comment: Estimated GFR calculated using the 2020 CKD_EPI creatinine equation. Calcium, Total, S 8.8 8.8 - 10.2 mg/dL 11/06/2024 9:04 AM [employer] DTL Glucose, S 129 70 - 140 mg/dL 11/06/2024 9:04 AM [employer] DTL Blood (Blood, Venous) 11/06/2024 7:59 AM [employer] 11/06/2024 8:42 AM [employer] Joshua Lafleur Jr., M.D. LAB BLOOD ADD-ON Final Result [facility] [address] [place] [address], [place] [facility] [address] [place] [address] * Glucose, POCT (11/06/2024 7:50 AM SU[employer]) Pathologist [facility] Glucose, POCT, B 125 70 - 140 mg/dL 11/06/2024 7:56 AM [employer] PCLX Site Capillary 11/06/2024 7:56 AM [employer] PCLX Blood 11/06/2024 7:50 AM [employer] 11/06/2024 7:56 AM [employer] us Unknown Provider LAB POCT ORDERABLES-MANUAL Echo l Result POC [facility] [address] [place] [address], [facility] PCLX [facility] POC [address] [place] [address] * (ABNORMAL) Renal Function Panel (11/05/2024 10:31 PM [employer]) Potassium, S 4.8 3.6 - 5.2 mmol/L 11/05/2024 11:12 PM [employer] DTL Sodium, S 137 135 - 145 mmol/L 11/05/2024 11:12 PM [employer] DTL Chloride, S 102 98 - 107 mmol/L 11/05/2024 11:12 PM [employer] DTL Bicarbonate, S 25 22 - 29 mmol/L 11/05/2024 11:12 PM [employer] DTL Anion Gap 10 7 - 15 11/05/2024 11:12 PM [employer] DTL BUN (Blood Urea Nitrogen), S 54(H) 6 - 21 mg/dL 11/05/2024 11:12 PM [employer] DTL Creatinine 2.08(H) 0.59 - 1.04 mg/dL 11/05/2024 11:12 PM [employer] DTL Estimated GFR (eGFR) 23(L) >=60 mL/min/BSA 11/05/2024 11:12 PM [employer] DTL Comment: Estimated GFR calculated using the 2020 CKD_EPI creatinine equation. Calcium, Total, S 8.7(L) 8.8 - 10.2 mg/dL 11/05/2024 11:12 PM [employer] DTL Glucose, S 98 70 - 140 mg/dL 11/05/2024 11:12 PM [employer] DTL Albumin, S 2.9(L) 3.5 - 5.0 g/dL 11/05/2024 11:12 PM [employer] DTL Phosphorus (Inorganic), S 4.2 2.5 - 4.5 mg/dL 11/05/2024 11:12 PM [employer] DTL Blood (Blood, Venous) 11/05/2024 10:31 PM [employer] 11/05/2024 10:58 PM [employer] us Joshua Lafleur Jr., M.D. LAB BLOOD ADD-ON Final Result Performing Organization Address City/[facility]/ZIP Co de Phone Number [facility] [address] [place] [address], [facility] DTL [facility] [address] [place] [address] * Glucose, POCT (11/05/2024 9:28 PM [employer]) Glucose, POCT, B 100 70 - 140 mg/dL 11/05/2024 9:32 PM [employer] PCLX Site Capillary 11/05/2024 9:32 PM [employer] PCLX Last Intake 1-2 hours 11/05/2024 9:32 PM [employer] PCLX Blood 11/05/2024 9:28 PM [employer] 11/05/2024 9:33 PM [employer] us Unknown Provider LAB POCT ORDERABLES-MANUAL Echo l Result Performing Organization Address [facility] Co de Phone Number [facility] [address] [place] [address], [facility] PCLX [facility] POC [address] [place] [address] * (ABNORMAL) Glucose, POCT (11/05/2024 5:45 PM SU[employer]OR [employer]) Glucose, POCT, B 185(H) 70 - 140 mg/dL 11/05/2024 5:50 PM [employer] PCLX Site Capillary 11/05/2024 5:50 PM [employer] PCLX Last Intake 3-4 hours 11/05/2024 5:50 PM [employer] PCLX Blood 11/05/2024 5:45 PM [employer] 11/05/2024 5:51 PM [employer] us Unknown Provider LAB POCT ORDERABLES-MANUAL Echo l Result [facility] [address] [place] [address], [place] PCLX [facility] POC [address] [place] [address] * (ABNORMAL) Bacterial Culture, Aerobic + Susceptibility, Urine (11/05/2024 4:26 PM SUPER[employer]) Pathologist [facility] Urine Culture With urogenital microbiota, susceptibilities not performed per laboratory criteria. (A) 11/09/2024 1:57 PM [employer] DTL Urine Culture ENTEROCOCCUS FAECALIS >100,000 cfu/mL (A) 11/09/2024 1:57 PM [employer] DTL Urine (Urine, Midstream) 11/05/2024 4:26 PM [employer] 11/05/2024 5:28 PM [employer] Comment:Specimen Source Site : Urine Narrative Organism Antibiotic Method Susceptibility Enterococcus faecalis Levofloxacin SUSCEPTIBI LITY, SARAHY (MCG/ML) 2 mcg/mL: Susceptible Enterococcus faecalis Nitrofurantoin SUSCEPTIBI LITY, SARAHY (MCG/ML) <=32 mcg/mL: Susceptible Enterococcus faecalis Vancomycin SUSCEPTIBI LITY, SARAHY (MCG/ML) <=2 mcg/mL: Susceptible Enterococcus faecalis Penicillin SUSCEPTIBI LITY, SARAHY (MCG/ML) 1 mcg/mL: Susceptible us Joshua Lafleur Jr., M.D. LAB MICROBIOLOGY - [facility] ORDERABLES Final Result [facility] [address] [place] [address], [facility] [address] [place] [address] * (ABNORMAL) Glucose, POCT (11/05/2024 1:52 PM SUPERVISOR [employer]) Glucose, POCT, B 219(H) 70 - 140 mg/dL 11/05/2024 1:57 PM [employer] PCLX Site Capillary 11/05/2024 1:57 PM [employer] PCLX Last Intake 2-3 hours 11/05/2024 1:57 PM [employer] PCLX Blood 11/05/2024 1:52 PM [employer] 11/05/2024 1:57 PM [employer] us Unknown Provider LAB POCT ORDERABLES-MANUAL Echo l Result Performing Organization Address City/[facility]/ZIP Co de Phone Number POC [facility] [address] [place] [address], [facility] PCLX [facility] P[facility] [address] [place] [address] * (ABNORMAL) Microscopic Manual (11/05/2024 11:55 AM SU[employer]) Microscopy Abnormal 11/05/2024 12:51 PM [employer] DTL RBC <3 <3 /hpf 11/05/2024 12:51 PM [employer] DTL WBC 51-100(A) /hpf 11/05/2024 12:51 PM [employer] DTL Comment: ----REFERENCE VALUE---- <4 (Males) <11 (Females) Casts, Hyaline Occas /lpf 11/05/2024 12:51 PM [employer] DTL Squamous Epithelial Cells, U 1-3 /hpf 11/05/2024 12:51 PM [employer] DTL Bacteria Present(A) 11/05/2024 12:51 PM [employer] DTL Urine 11/05/2024 11:5 5 AM [employer] 11/05/2024 12:34 PM [employer] us Joshua Lafleur Jr., M.D. LAB URINE ORDERABLES Fi nal Result Performing Organization Address City/[facility] Co de Phone Number [facility] [address] [place] [address], [facility] DTL [facility] [address] [place] [address] * (ABNORMAL) Dipstick, Urine (11/05/2024 11:55 AM SUPERVISOR F[employer]RICATION [employer] ASSEMBLY) Hemoglobin, QL, U Trace(A) Negative 11/05/2024 12:34 PM SUPERVISOR [employer]ICATION [employer] ASSEMBL[employer] DTL Leukocyte Esterase, U Small(A) Negative 11/05/2024 12:34 PM SUPERVISOR F[employer]RICATION AND ASSEMBLY DTL Nitrite, U Negative Negative 11/05/2024 12:34 PM SUPERVISOR F[employer]ICATION [employer] ASSEMBLY DTL Ketone, U 5(A) Negative mg/dL 11/05/2024 12:34 PM SUPERVISOR F[employer]ICATION AND ASSEMBLY DTL Glucose, U Negative Negative mg/dL 11/05/2024 12:34 PM SUPERVISOR F[employer]ICATION AND ASSEMBLY DTL Urine 11/05/2024 11:5 5 AM SUPERVISOR [employer]ICATION [employer]SEMBLY 11/05/2024 12:24 PM SUPERVISOR F[employer]ICATION [employer]SEMBL[employer] us Joshua Lafleur Jr., M.D. LAB URINE ORDERABLES Fi nal Result [facility] [address] [place] [address], [facility] [address] [place] [address] * Osmolality, Urine (11/05/2024 11:55 AM SUPERVISOR F[employer]ICATION [employer] ASSEMBLY) Osmolality, U 522 150 - 1150 mOsm/kg 11/05/2024 12:53 PM SUPERVISOR F[employer]ICATION AND ASSEMBLY DT Urine 11/05/2024 11:5 5 AM SUPERVISOR F[employer]ICATION [employer] ASSEMBLY 11/05/2024 12:24 PM SUPERVISOR F[employer]ICATION [employer]SEMBL[employer] us Joshua Lafleur Jr., M.D. LAB URINE ORDERABLES Fi nal Result Performing Organization Address City/[facility]/ZIP Co de Phone Number [facility] [address] [place] [address], [facility] [address] [place] [address] * pH, Urine (11/05/2024 11:55 AM SUPERVISOR F[employer]ICATION AND ASSEMBLY) pH, U 6.7 4.5 - 8.0 11/05/2024 12: 53 PM SUPERVISOR F[employer]RICATION AND ASSEMBLY DT Urine 11/05/2024 11:5 5 AM SUPERVISOR F[employer]ICATION [employer] ASSEMBLY 11/05/2024 12:24 PM SUPERVISOR F[employer]ICATION [employer] ASSEMBLY Result Meli Lafleur Jr., M.D. LAB URINE ORDERABLES Fi nal Result Performing Organization Address City/[facility]/ZIP Co de Phone Number [facility] [address] [place] [address], [facility] [address] [place] [address] * (ABNORMAL) Urinalysis, with Microscopic: Urine, Straight Catheter (11/05/2024 11:55 AM SUPERVISOR F[employer]RICATION [employer] ASSEMBLY) Source Urine, Urine, Straight Catheter 11/05/2024 12:24 PM [employer] DTL Color, U Yellow 11/05/2024 12:24 PM [employer] DTL Clarity, U Clear 11/05/2024 12:24 PM [employer] DTL Protein, U 27(H) <26 mg/dL 11/05/2024 12:57 PM [employer] DTL Protein/Osmola lity 0.52(H) <0.42 ratio 11/05/2024 12:57 PM [employer] DTL Predicted 24 HR Protein, U 368(H) <229 mg/24 h 11/05/2024 12:57 PM [employer] DTL Predicted Range 91-1488 mg/24 h 11/05/2024 12:57 PM [employer] DTL Urine (Urine, Straight Catheter) 11/05/2024 11:55 AM [employer] 11/05/2024 12:24 PM [employer] us Joshua Lafleur Jr., M.D. LAB URINE ORDERABLES Fi nal Result [facility] [address] [place] [address], [facility] [address] [place] [address] * US Kidneys Bilateral with Bladder (11/05/2024 8:36 AM [employer]) Anatomical Region Laterality Modality Abdomen, Renal, Ultrasound R ST LOS, Ultrasound ARZ LOS, Ultrasound FLA LOS Bilateral Ultrasound Impressions 11/05/2024 8:44 AM [employer] Left kidney not visualized due to positioning and overlying bowel gas. No hydronephrosis on the right. Narrative 11/05/2024 8:44 AM [employer] EXAM: US KIDNEYS BILATERAL WITH BLADDER COMPARISON: [...] gas. Nohydronephrosis on the right. us Joshua Lafleur Jr., M.D. IMG US PROCEDURES Final Result * (ABNORMAL) Glucose, POCT (11/05/2024 7:59 AM [employer]) Glucose, POCT, B 194(H) 70 - 140 mg/dL 11/05/2024 8:22 AM [employer] PCLX Site Capillary 11/05/2024 8:22 AM [employer] PCLX Last Intake > 4 hours 11/05/2024 8:22 AM [employer] PCLX Blood 11/05/2024 7:59 AM [employer] 11/05/2024 8:22 AM [employer] Unknown Provider LAB POCT ORDERABLES-MANUAL Echo l Result POC [facility] [address] PCLX [facility] [address] [place] [address] * CBC with Differential, Blood (11/05/2024 7:13 AM [employer]) Hemoglobin 11.6 11.6 - 15.0 g/dL 11/05/2024 7:45 AM [employer] DTL Hematocrit 35.7 35.5 - 44.9 % 11/05/2024 7:45 AM [employer] DTL Erythrocytes 4.08 3.92 - 5.13 x10(12)/L 11/05/2024 7:45 AM [employer] DTL MCV 87.5 78.2 - 97.9 fL 11/05/2024 7:45 AM [employer] DTL RBC Distrib Width 13.4 12.2 - 16.1 % 11/05/2024 7:45 AM [employer] DTL Platelet Count 181 157 - 371 x10(9)/L 11/05/2024 7:45 AM [employer] DTL Leukocytes 5.6 3.4 - 9.6 x10(9)/L 11/05/2024 7:45 AM [employer] DTL Neutrophils 2.95 1.56 - 6.45 x10(9)/L 11/05/2024 7:45 AM [employer] DHPM Lymphocytes 1.64 0.95 - 3.07 x10(9)/L 11/05/2024 7:45 AM [employer] DTL Monocytes 0.59 0.26 - 0.81 x10(9)/L 11/05/2024 7:45 AM [employer] DTL Eosinophils 0.37 0.03 - 0.48 x10(9)/L 11/05/2024 7:45 AM [employer] DTL Basophils 0.04 0.01 - 0.08 x10(9)/L 11/05/2024 7:45 AM [employer] DTL Blood (Blood, Venous) 11/05/2024 7:13 AM [employer] 11/05/2024 7:38 AM [employer] us Joshua Lafleur Jr., M.D. LAB BLOOD ADD-ON Final Result [facility] [address] [place] [address], [facility] DTL [facility] [address] [place] [address] [facility] [address] [place] [address] * CK (Creatine Kinase) (11/05/2024 7:13 AM [employer]) Creatine Kinase (CK), S 35 26 - 192 U/L 11/05/2024 8:06 AM [employer] DTL Blood (Blood, Venous) 11/05/2024 7:13 AM [employer] 11/05/2024 7:48 AM [employer] us Joshua Lafleur Jr., M.D. LAB BLOOD ADD-ON Final Result Performing Organization Address City/[facility]/ZIP Co de Phone Number [facility] [address] [place], [place] [address] [place] [address] [address] [place] [address] * (ABNORMAL) Cystatin C with Estimated GFR (11/05/2024 7:13 AM [employer]) eGFR by Cystatin C 16(L) >60 mL/min/BSA 11/05/2024 8:06 AM [employer] DTL Comment: Estimated GFR calculated using the [...] lower with the new assay. Cystatin C 2.81(H) 0.67 - 1.21 mg/L 11/05/2024 8:06 AM [employer] DTL Blood (Blood, Venous) 11/05/2024 7:13 AM [employer] 11/05/2024 7:48 AM [employer] us Joshua Lafleur Jr., M.D. LAB BLOOD ADD-ON Final Result Performing Organization Address City/[facility]/ZIP Co de Phone Number [facility] [address] [place] [address], [facility] [address] [place] [address] * Magnesium (11/05/2024 7:13 AM SU[employer]) Magnesium, S 1.9 1.7 - 2.3 mg/dL 11/05/2024 8:06 AM [employer] DTL Blood (Blood, Venous) 11/05/2024 7:13 AM [employer] 11/05/2024 7:48 AM [employer] us Joshua Lafleur Jr., M.D. LAB BLOOD ADD-ON Final Result Performing Organization Address City/[facility]/[place] [address] * (ABNORMAL) Phosphorus Inorganic (11/05/2024 7:13 AM SU[employer]) Pathologist [facility] Phosphorus (Inorganic), S 4.6(H) 2.5 - 4.5 mg/dL 11/05/2024 8:06 AM [employer] DTL Blood (Blood, Venous) 11/05/2024 7:13 AM [employer] 11/05/2024 7:48 AM [employer] Joshua Lafleur Jr., M.D. LAB BLOOD ADD-ON Final Result Performing Organization Address [facility] Co de Phone Number [id number] [place] [phone] * (ABNORMAL) Basic Metabolic Panel (11/05/2024 7:13 AM [employer]) Potassium, S 4.9 3.6 - 5.2 mmol/L 11/05/2024 8:06 AM [employer] DTL Sodium, S 138 135 - 145 mmol/L 11/05/2024 8:06 AM [employer] DTL Chloride, S 102 98 - 107 mmol/L 11/05/2024 8:06 AM [employer] DTL Bicarbonate, S 28 22 - 29 mmol/L 11/05/2024 8:06 AM [employer] DTL Anion Gap 8 7 - 15 11/05/2024 8:06 AM [employer] DTL BUN (Blood Urea Nitrogen), S 44(H) 6 - 21 mg/dL 11/05/2024 8:06 AM [employer] DTL Creatinine 2.25(H) 0.59 - 1.04 mg/dL 11/05/2024 8:06 AM [employer] DTL Estimated GFR (eGFR) 20(L) >=60 mL/min/BSA 11/05/2024 8:06 AM [employer] DTL Comment: Estimated GFR calculated using the 2020 CKD_EPI creatinine equation. Calcium, Total, S 8.8 8.8 - 10.2 mg/dL 11/05/2024 8:06 AM [employer] DTL Glucose, S 201(H) 70 - 140 mg/dL 11/05/2024 8:06 AM [employer] DTL Blood (Blood, Venous) 11/05/2024 7:13 AM [employer] 11/05/2024 7:48 AM [employer] us Joshua Lafleur Jr., M.D. LAB BLOOD ADD-ON Final Result [facility] [address] [place] [address], [facility] [address] [place] [address] * (ABNORMAL) Basic Metabolic Panel (11/04/2024 10:43 PM [employer]) Pathologist [facility] Potassium, S 4.5 3.6 - 5.2 mmol/L 11/04/2024 11:49 PM [employer] DTL Sodium, S 140 135 - 145 mmol/L 11/04/2024 11:49 PM [employer] DTL Chloride, S 102 98 - 107 mmol/L 11/04/2024 11:49 PM [employer] DTL Bicarbonate, S 28 22 - 29 mmol/L 11/04/2024 11:49 PM [employer] DTL Anion Gap 10 7 - 15 11/04/2024 11:49 PM [employer] DTL BUN (Blood Urea Nitrogen), S 47(H) 6 - 21 mg/dL 11/04/2024 11:49 PM [employer] DTL Creatinine 2.45(H) 0.59 - 1.04 mg/dL 11/04/2024 11:49 PM [employer] DTL Estimated GFR (eGFR) 18(L) >=60 mL/min/BSA 11/04/2024 11:49 PM [employer] DTL Comment: Estimated GFR calculated using the 2020 CKD_EPI creatinine equation. Calcium, Total, S 9.0 8.8 - 10.2 mg/dL 11/04/2024 11:49 PM [employer] DTL Glucose, S 120 70 - 140 mg/dL 11/04/2024 11:49 PM [employer] DTL Blood (Blood, Venous) 11/04/2024 10:43 PM [employer] 11/04/2024 11:27 PM [employer] Joshua Lafleur Jr., M.D. LAB BLOOD ADD-ON Final Result Performing Organization Address City/[facility]/ZIP Co de Phone Number [facility] [address] [place] [address], [facility] DTL [facility] [address] [place] [address] * (ABNORMAL) Glucose, POCT (11/04/2024 9:58 PM [employer]) Glucose, POCT, B 175(H) 70 - 140 mg/dL 11/04/2024 10:14 PM [employer] PCLX Site Capillary 11/04/2024 10:14 PM [employer] PCLX Last Intake 3-4 hours 11/04/2024 10:14 PM [employer] PCLX Blood 11/04/2024 9:58 PM [employer] 11/04/2024 10:14 PM [employer] us Unknown Provider LAB POCT ORDERABLES-MANUAL Echo l Result Performing Organization Address [facility] Co de Phone Number [facility] [address] [place] [address], [facility] PCLX [facility] POC [address] [place] [address] * (ABNORMAL) Glucose, POCT (11/04/2024 5:28 PM [employer]) Glucose, POCT, B 192(H) 70 - 140 mg/dL 11/04/2024 5:49 PM [employer] PCLX Last Intake 2-3 hours 11/04/2024 5:49 PM [employer] PCLX Blood 11/04/2024 5:28 PM [employer] 11/04/2024 5:49 PM [employer] us Unknown Provider LAB POCT ORDERABLES-MANUAL Echo l Result Performing Organization Address City/[facility]/ZIP Co de Phone Number [facility] [address] [place] [address], [place] PCLX [facility] [address] [place] [address] * (ABNORMAL) Glucose, POCT (11/04/2024 1:24 PM [employer]) Glucose, POCT, B 226(H) 70 - 140 mg/dL 11/04/2024 1:27 PM [employer] PCLX Site Capillary 11/04/2024 1:27 PM [employer] PCLX Last Intake 2-3 hours 11/04/2024 1:27 PM [employer] PCLX Blood 11/04/2024 1:24 PM [employer] 11/04/2024 1:27 PM [employer] us Unknown Provider LAB POCT ORDERABLES-MANUAL Echo l Result POC [facility] [address] [place] [address], [facility] PCLX [facility] [address] [place] [address] * (ABNORMAL) Glucose, POCT (11/04/2024 7:35 AM [employer]) Glucose, POCT, B 145(H) 70 - 140 mg/dL 11/04/2024 7:51 AM [employer] PCLX Last Intake 2-3 hours 11/04/2024 7:51 AM [employer] PCLX Blood 11/04/2024 7:35 AM [employer] 11/04/2024 7:51 AM [employer] us Unknown Provider LAB POCT ORDERABLES-MANUAL Echo l Result POC [facility] [address] [place] [address], [facility] PCLX [facility] [address] [place] [address] * (ABNORMAL) Basic Metabolic Panel (11/03/2024 10:27 PM [employer]) Potassium, S 4.2 3.6 - 5.2 mmol/L 11/04/2024 12:03 AM [employer] DTL Sodium, S 140 135 - 145 mmol/L 11/04/2024 12:03 AM [employer] DTL Chloride, S 103 98 - 107 mmol/L 11/04/2024 12:03 AM [employer] DTL Bicarbonate, S 27 22 - 29 mmol/L 11/04/2024 12:03 AM [employer] DTL Anion Gap 10 7 - 15 11/04/2024 12:03 AM [employer] DTL BUN (Blood Urea Nitrogen), S 36(H) 6 - 21 mg/dL 11/04/2024 12:03 AM [employer] DTL Creatinine 1.75(H) 0.59 - 1.04 mg/dL 11/04/2024 12:03 AM [employer] DTL Estimated GFR (eGFR) 28(L) >=60 mL/min/BSA 11/04/2024 12:03 AM [employer] DTL Comment: Estimated GFR calculated using the 2020 CKD_EPI creatinine equation. Calcium, Total, S 8.8 8.8 - 10.2 mg/dL 11/04/2024 12:03 AM [employer] DTL Glucose, S 158(H) 70 - 140 mg/dL 11/04/2024 12:03 AM [employer] DTL Blood (Blood, Venous) 11/03/2024 10:27 PM [employer] 11/03/2024 11:47 PM [employer] Teddy Sen M.D., M.S. LAB BLOOD ADD-ON Final Result [facility] [address] [place] [address], [facility] [address] [place] [address] * (ABNORMAL) CBC with Differential, Blood (11/03/2024 10:27 PM [employer]) Hemoglobin 11.4(L) 11.6 - 15.0 g/dL 11/03/2024 11:28 PM [employer] DTL Hematocrit 34.3(L) 35.5 - 44.9 % 11/03/2024 11:28 PM [employer] DTL Erythrocytes 3.99 3.92 - 5.13 x10(12)/L 11/03/2024 11:28 PM [employer] DTL MCV 86.0 78.2 - 97.9 fL 11/03/2024 11:28 PM [employer] DTL RBC Distrib Width 13.2 12.2 - 16.1 % 11/03/2024 11:28 PM [employer] DTL Platelet Count 148(L) 157 - 371 x10(9)/L 11/03/2024 11:28 PM [employer] DTL Leukocytes 5.4 3.4 - 9.6 x10(9)/L 11/03/2024 11:28 PM [employer] DTL Neutrophils 3.12 1.56 - 6.45 x10(9)/L 11/03/2024 11:28 PM [employer] DHPM Lymphocytes 1.39 0.95 - 3.07 x10(9)/L 11/03/2024 11:28 PM [employer] DTL Monocytes 0.46 0.26 - 0.81 x10(9)/L 11/03/2024 11:28 PM [employer] DTL Eosinophils 0.37 0.03 - 0.48 x10(9)/L 11/03/2024 11:28 PM [employer] DTL Basophils <0.03 0.01 - 0.08 x10(9)/L 11/03/2024 11:28 PM [employer] DTL Blood (Blood, Venous) 11/03/2024 10:27 PM [employer] 11/03/2024 11:22 PM [employer]PER[employer] Teddy Sen M.D., M.S. LAB BLOOD ADD-ON Final Result 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 [employer]) [facility] Glucose, POCT, B 146(H) 70 - 140 mg/dL 11/03/2024 9:25 PM [employer] PCLX Site Capillary 11/03/2024 9:25 PM [employer] PCLX Blood 11/03/2024 9:02 PM [employer] 11/03/2024 9:26 PM [employer] us Unknown Provider LAB POCT ORDERABLES-MANUAL Echo l Result Performing Organization Address City/[facility]/ZIP Co de Phone Number POC [facility] [address] [place] [address], [place] PCLX [facility] [address] [place] [address] * (ABNORMAL) Glucose, POCT (11/03/2024 4:59 PM [employer]PER[employer]OR [employer]) Glucose, POCT, B 253(H) 70 - 140 mg/dL 11/03/2024 5:06 PM [employer] PCLX Site Capillary 11/03/2024 5:06 PM [employer] PCLX Blood 11/03/2024 4:59 PM [employer] 11/03/2024 5:06 PM [employer] us Unknown Provider LAB POCT ORDERABLES-MANUAL Echo l Result Performing Organization Address [facility] Co de Phone Number POC [facility] [address] [place] [address], [place] PCLX [facility] [address] [place] [address] * (ABNORMAL) Glucose, POCT (11/03/2024 12:21 PM SUPER[employer]OR [employer]) Glucose, POCT, B 250(H) 70 - 140 mg/dL 11/03/2024 12:27 PM [employer] PCLX Site Capillary 11/03/2024 12:27 PM [employer] PCLX Blood 11/03/2024 12:2 1 PM [employer] 11/03/2024 12:27 PM [employer] us Unknown Provider LAB POCT ORDERABLES-MANUAL Echo l Result Performing Organization Address City/[facility]/ZIP Co de Phone Number POC [facility] [address] [place] [address], [facility] PCLX [facility] [address] [place] [address] * (ABNORMAL) Glucose, POCT (11/03/2024 9:16 AM SUPERVISOR [employer]) Glucose, POCT, B 178(H) 70 - 140 mg/dL 11/03/2024 9:34 AM [employer] PCLX Site Capillary 11/03/2024 9:34 AM [employer] PCLX Blood 11/03/2024 9:16 AM [employer] 11/03/2024 9:35 AM [employer]PER[employer] us Unknown Provider LAB POCT ORDERABLES-MANUAL Echo l Result POC [facility] [address] [place] [address], [facility] PCLX [facility] [address] [place] [address] * (ABNORMAL) Basic Metabolic Panel (11/02/2024 10:14 PM SUPERVISOR [employer]) Potassium, S 4.4 3.6 - 5.2 mmol/L 11/02/2024 11:04 PM [employer]PER[employer]OR [employer] DTL Sodium, S 139 135 - 145 mmol/L 11/02/2024 11:04 PM [employer] DTL Chloride, S 104 98 - 107 mmol/L 11/02/2024 11:04 PM [employer] DTL Bicarbonate, S 26 22 - 29 mmol/L 11/02/2024 11:04 PM [employer] DTL Anion Gap 9 7 - 15 11/02/2024 11:04 PM [employer] DTL BUN (Blood Urea Nitrogen), S 38(H) 6 - 21 mg/dL 11/02/2024 11:04 PM [employer] DTL Creatinine 1.96(H) 0.59 - 1.04 mg/dL 11/02/2024 11:04 PM [employer] DTL Estimated GFR (eGFR) 24(L) >=60 mL/min/BSA 11/02/2024 11:04 PM [employer] DTL Comment: Estimated GFR calculated using the 2020 CKD_EPI creatinine equation. Calcium, Total, S 8.4(L) 8.8 - 10.2 mg/dL 11/02/2024 11:04 PM [employer] DTL Glucose, S 227(H) 70 - 140 mg/dL 11/02/2024 11:04 PM [employer] DTL Blood (Blood, Venous) 11/02/2024 10:14 PM [employer] 11/02/2024 10:50 PM [employer] us Teddy Sen M.D., M.S. LAB BLOOD ADD-ON Final Result [facility] [address] [place] [address], [facility] DTL [facility] [address] [place] [address] * (ABNORMAL) CBC with Differential, Blood (11/02/2024 10:14 PM SUPERVISOR [employer]) Hemoglobin 11.2(L) 11.6 - 15.0 g/dL 11/02/2024 10:46 PM [employer] DTL Hematocrit 33.8(L) 35.5 - 44.9 % 11/02/2024 10:46 PM [employer] DTL Erythrocytes 3.91(L) 3.92 - 5.13 x10(12)/L 11/02/2024 10:46 PM [employer] DTL MCV 86.4 78.2 - 97.9 fL 11/02/2024 10:46 PM [employer]PER[employer] DTL RBC Distrib Width 13.2 12.2 - 16.1 % 11/02/2024 10:46 PM [employer] DTL Platelet Count 144(L) 157 - 371 x10(9)/L 11/02/2024 11:33 PM [employer] DTL Leukocytes 6.6 3.4 - 9.6 x10(9)/L 11/02/2024 11:33 PM [employer]PER[employer] DTL Neutrophils 4.21 1.56 - 6.45 x10(9)/L 11/02/2024 10:46 PM [employer]PER[employer] DHPM Lymphocytes 1.35 0.95 - 3.07 x10(9)/L 11/02/2024 10:46 PM [employer]PER[employer] DTL Monocytes 0.55 0.26 - 0.81 x10(9)/L 11/02/2024 10:46 PM [employer]PER[employer] DTL Eosinophils 0.43 0.03 - 0.48 x10(9)/L 11/02/2024 10:46 PM [employer]PER[employer] DTL Basophils 0.04 0.01 - 0.08 x10(9)/L 11/02/2024 10:46 PM [employer]PER[employer] DTL Blood (Blood, Venous) 11/02/2024 10:14 PM [employer]PER[employer]OR [employer] 11/02/2024 10:40 PM [employer]PER[employer] Teddy Sen M.D., M.S. LAB BLOOD ADD-ON Final Result Performing Organization Address City/[facility] Co de Phone Number [facility] [address] [place] [address], [facility] [address] [place] [address] [facility] [address] [place] [address] * (ABNORMAL) Hemoglobin A1c (11/02/2024 10:14 PM [employer]) Hemoglobin A1c, B 8.8(H) 4.0 - 5.6 % 11/02/2024 10:56 PM [employer] DTL Comment: Hemoglobin A1c values greater than or equal to 6.5 percent are diagnostic for diabetes mellitus. Diagnosis should be confirmed by repeat testing. In diabetic patients, HbA1c goals should be discussed with healthcare provider. Blood (Blood, Venous) 11/02/2024 10:14 PM [employer] 11/02/2024 10:40 PM [employer] Janes Gonzales APRN.N.P. LAB BLOOD ADD-ON Final Result Performing Organization Address [facility] Co de Phone Number [facility] [address] [place] [address], [facility] [address] [place] [address] * (ABNORMAL) Glucose, POCT (11/02/2024 9:58 PM [employer]) Glucose, POCT, B 224(H) 70 - 140 mg/dL 11/02/2024 10:02 PM [employer] PCLX Site Capillary 11/02/2024 10:02 PM [employer] PCLX Last Intake 2-3 hours 11/02/2024 10:02 PM [employer] PCLX Blood 11/02/2024 9:58 PM [employer] 11/02/2024 10:02 PM [employer] us Unknown Provider LAB POCT ORDERABLES-MANUAL Echo l Result Performing Organization Address City/[facility]/ZIP Co de Phone Number POC [facility] [address] [place] [address], [facility] PCLX [facility] [address] [place] [address] * (ABNORMAL) Glucose, POCT (11/02/2024 4:44 PM [employer]) Glucose, POCT, B 248(H) 70 - 140 mg/dL 11/02/2024 4:50 PM [employer] PCLX Site Capillary 11/02/2024 4:50 PM [employer] PCLX Last Intake 3-4 hours 11/02/2024 4:50 PM [employer] PCLX Blood 11/02/2024 4:44 PM [employer] 11/02/2024 4:50 PM [employer] us Unknown Provider LAB POCT ORDERABLES-MANUAL Echo l Result Performing Organization Address [facility] [facility] Co de Phone Number [facility] [address] [place] [address], [place] PCLX [facility] [address] [place] [address] * (ABNORMAL) Glucose, POCT (11/02/2024 2:00 PM [employer]) Glucose, POCT, B 268(H) 70 - 140 mg/dL 11/02/2024 2:07 PM [employer] PCLX Site Capillary 11/02/2024 2:07 PM [employer] PCLX Last Intake 1-2 hours 11/02/2024 2:07 PM [employer] PCLX Blood 11/02/2024 2:00 PM [employer] 11/02/2024 2:07 PM [employer] us Unknown Provider LAB POCT ORDERABLES-MANUAL Echo l Result Performing Organization Address [facility] Co de Phone Number [facility] [address] [place] [address], [place] [facility] [address] [place] [address] * Glucose, POCT (11/02/2024 9:12 AM [employer]) Glucose, POCT, B 122 70 - 140 mg/dL 11/02/2024 9:39 AM [employer] PCLX Site Capillary 11/02/2024 9:39 AM [employer] PCLX Last Intake 3-4 hours 11/02/2024 9:39 AM [employer] PCLX Blood 11/02/2024 9:12 AM [employer] 11/02/2024 9:39 AM [employer] us Unknown Provider LAB POCT ORDERABLES-MANUAL Echo l Result POC [facility] [address] [place] [address], [facility] PCLX [facility] [address] [place] [address] * (ABNORMAL) Basic Metabolic Panel (11/01/2024 10:54 PM SU[employer]) Pathologist [facility] Potassium, S 4.1 3.6 - 5.2 mmol/L 11/01/2024 11:37 PM [employer] DTL Sodium, S 139 135 - 145 mmol/L 11/01/2024 11:37 PM [employer] DTL Chloride, S 103 98 - 107 mmol/L 11/01/2024 11:37 PM [employer] DTL Bicarbonate, S 24 22 - 29 mmol/L 11/01/2024 11:37 PM [employer] DTL Anion Gap 12 7 - 15 11/01/2024 11:37 PM [employer] DTL BUN (Blood Urea Nitrogen), S 39(H) 6 - 21 mg/dL 11/01/2024 11:37 PM [employer] DTL Creatinine 2.06(H) 0.59 - 1.04 mg/dL 11/01/2024 11:37 PM [employer] DTL Estimated GFR (eGFR) 23(L) >=60 mL/min/BSA 11/01/2024 11:37 PM [employer] DTL Comment: Estimated GFR calculated using the 2020 CKD_EPI creatinine equation. Calcium, Total, S 8.6(L) 8.8 - 10.2 mg/dL 11/01/2024 11:37 PM [employer] DTL Glucose, S 172(H) 70 - 140 mg/dL 11/01/2024 11:37 PM [employer] DTL Blood (Blood, Venous) 11/01/2024 10:54 PM [employer] 11/01/2024 11:22 PM [employer] us Teddy Sen M.D., M.S. LAB BLOOD ADD-ON Final Result [facility] [address] [place] [address], [facility] DTL [facility] [address] [place] [address] * (ABNORMAL) CBC with Differential, Blood (11/01/2024 10:54 PM SU[employer]) Hemoglobin 11.7 11.6 - 15.0 g/dL 11/01/2024 11:27 PM [employer] DTL Hematocrit 35.1(L) 35.5 - 44.9 % 11/01/2024 11:27 PM [employer] DTL Erythrocytes 3.99 3.92 - 5.13 x10(12)/L 11/01/2024 11:27 PM [employer] DTL MCV 88.0 78.2 - 97.9 fL 11/01/2024 11:27 PM [employer] DTL RBC Distrib Width 13.1 12.2 - 16.1 % 11/01/2024 11:27 PM [employer] DTL Platelet Count 115(L) 157 - 371 x10(9)/L 11/01/2024 11:41 PM [employer] DTL Leukocytes 10.1(H) 3.4 - 9.6 x10(9)/L 11/01/2024 11:41 PM [employer] DTL Neutrophils 8.51(H) 1.56 - 6.45 x10(9)/L 11/01/2024 11:27 PM [employer] DHPM Lymphocytes 0.54(L) 0.95 - 3.07 x10(9)/L 11/01/2024 11:27 PM [employer] DTL Monocytes 0.65 0.26 - 0.81 x10(9)/L 11/01/2024 11:27 PM [employer] DTL Eosinophils 0.34 0.03 - 0.48 x10(9)/L 11/01/2024 11:27 PM [employer] DTL Basophils <0.03 0.01 - 0.08 x10(9)/L 11/01/2024 11:27 PM [employer] DTL Blood (Blood, Venous) 11/01/2024 10:54 PM [employer] 11/01/2024 11:08 PM [employer] us Teddy Sen M.D., M.S. LAB BLOOD ADD-ON Final Result Performing Organization Address City/[facility]/ZIP Co de Phone Number [facility] [address] [place] [address], [facility] DTL [facility] [address] [place] [address] DHPM [facility] [address] [place] [address] * Glucose, POCT (11/01/2024 9:27 PM SU[employer]) Glucose, POCT, B 106 70 - 140 mg/dL 11/01/2024 9:30 PM [employer] PCLX Site Capillary 11/01/2024 9:30 PM [employer] PCLX Blood 11/01/2024 9:27 PM [employer] 11/01/2024 9:30 PM [employer] us Unknown Provider LAB POCT ORDERABLES-MANUAL Echo l Result Performing Organization Address [facility] Co de Phone Number POC [facility] [address] [place] [address], [facility] PCLX [facility] [address] [place] [address] * Glucose, POCT (11/01/2024 8:28 PM [employer]) Glucose, POCT, B 98 70 - 140 mg/dL 11/01/2024 8:32 PM [employer] PCLX Site Capillary 11/01/2024 8:32 PM [employer] PCLX Last Intake 1-2 hours 11/01/2024 8:32 PM [employer] PCLX Blood 11/01/2024 8:28 PM [employer] 11/01/2024 8:33 PM [employer] us Unknown Provider LAB POCT ORDERABLES-MANUAL Echo l Result POC [facility] [address] [place] [address], [place] [facility] [address] [place] [address] * (ABNORMAL) Glucose, POCT (11/01/2024 7:47 PM [employer]) Glucose, POCT, B 67(L) 70 - 140 mg/dL 11/01/2024 8:07 PM [employer] PCLX Site Capillary 11/01/2024 8:07 PM [employer] PCLX Last Intake 3-4 hours 11/01/2024 8:07 PM [employer] PCLX Blood 11/01/2024 7:47 PM [employer] 11/01/2024 8:07 PM [employer] us Unknown Provider LAB POCT ORDERABLES-MANUAL Echo l Result Performing Organization Address [facility]/ZIP Co de Phone Number [facility] [address] [place] [address], [facility] PCLX [facility] [address] [place] [address] * (ABNORMAL) Glucose, POCT (11/01/2024 5:30 PM SU[employer]) Glucose, POCT, B 224(H) 70 - 140 mg/dL 11/01/2024 5:33 PM [employer] PCLX Site Capillary 11/01/2024 5:33 PM [employer] PCLX Last Intake 3-4 hours 11/01/2024 5:33 PM [employer] PCLX Blood 11/01/2024 5:30 PM [employer] 11/01/2024 5:33 PM [employer] us Unknown Provider LAB POCT ORDERABLES-MANUAL Echo l Result Performing Organization Address City/[facility]/ZIP Co de Phone Number [facility] [address] [place] [address], [facility] PCLX [facility] [address] [place] [address] * (ABNORMAL) Glucose, POCT (11/01/2024 2:14 PM SU[employer]) Glucose, POCT, B 195(H) 70 - 140 mg/dL 11/01/2024 2:20 PM [employer] PCLX Site Capillary 11/01/2024 2:20 PM [employer] PCLX Blood 11/01/2024 2:14 PM [employer] 11/01/2024 2:20 PM [employer] Unknown Provider LAB POCT ORDERABLES-MANUAL Echo l Result Performing Organization Address City/[facility] Co de Phone Number POC [facility] [address] [place] [address], [facility] PCLX [facility] [address] [place] [address] * (ABNORMAL) Dipstick, Urine (11/01/2024 9:47 AM SU[employer]) Hemoglobin, QL, U Negative Negative 11/01/2024 10:47 AM [employer] DTL Leukocyte Esterase, U Negative Negative 11/01/2024 10:47 AM [employer] DTL Nitrite, U Negative Negative 11/01/2024 10:47 AM [employer] DTL Ketone, U Negative Negative mg/dL 11/01/2024 10:47 AM [employer] DTL Glucose, U >=1000(A) Negative mg/dL 11/01/2024 10:47 AM [employer] DTL Urine 11/01/2024 9:47 AM [employer] 11/01/2024 10:10 AM [employer] Teddy Sen M.D., M.S. LAB URINE ORDERABLES F inal Result Performing Organization Address [facility] Co de Phone Number [facility] [address] [place] [address], [facility] [address] [place] [address] * Osmolality, Urine (11/01/2024 9:47 AM SUPER[employer]) Osmolality, U 611 150 - 1150 mOsm/kg 11/01/2024 10:31 AM [employer] DTL Urine 11/01/2024 9:47 AM [employer] 11/01/2024 10:10 AM [employer] Teddy Sen M.D., M.S. LAB URINE ORDERABLES F inal Result Performing Organization Address [facility] Co de Phone Number [facility] [address] [place] [address], [facility] [address] [place] [address] * pH, Urine (11/01/2024 9:47 AM SUPER[employer]) pH, U 6.6 4.5 - 8.0 11/01/2024 10: 31 AM [employer] DTL Urine 11/01/2024 9:47 AM [employer] 11/01/2024 10:10 AM [employer] Teddy Sen M.D., M.S. LAB URINE ORDERABLES F inal Result Performing Organization Address [facility] Co de Phone Number [facility] [address] [place] [address], [facility] [address] [place] [address] * Microscopic Automated (11/01/2024 9:47 AM [employer]) Microscopy Normal 11/01/2024 10:47 AM [employer] DTL RBC None Seen <3 /hpf 11/01/2024 10:47 AM [employer] DTL WBC 4-10 /hpf 11/01/2024 10:47 AM [employer] DTL Comment: ----REFERENCE VALUE---- <4 (Males) <11 (Females) Urine 11/01/2024 9:47 AM [employer] 11/01/2024 10:10 AM [employer] Teddy Sen M.D., M.S. LAB URINE ORDERABLES F inal Result Performing Organization Address [facility] Co de Phone Number [facility] [address] [place] [address], [facility] [address] [place] [address] * (ABNORMAL) Urinalysis, with Microscopic: Urine, Catheter (11/01/2024 9:47 AM SU[employer]) Source Urine, Urine, Catheter 11/01/2024 10:10 AM [employer] DTL Color, U Yellow 11/01/2024 10:10 AM [employer] DTL Clarity, U Clear 11/01/2024 10:10 AM [employer] DTL Protein, U 33(H) <26 mg/dL 11/01/2024 10:58 AM [employer] DTL Protein/Osmola lity 0.54(H) <0.42 ratio 11/01/2024 10:58 AM [employer] DTL Predicted 24 HR Protein, U 382(H) <229 mg/24 h 11/01/2024 10:58 AM [employer] DTL Predicted Range 94-1548 mg/24 h 11/01/2024 10:58 AM [employer] DTL Urine (Urine, Catheter) 11/01/2024 9:47 AM [employer] 11/01/2024 10:10 AM [employer] us Teddy Sen M.D., M.S. LAB URINE ORDERABLES F inal Result Performing Organization Address City/[facility]/ZIP Co de Phone Number [facility] [address] [place] [address], [facility] DTL [facility] [address] [place] [address] * Glucose, POCT (11/01/2024 7:27 AM SUPERVISOR [employer]) Pathologist [facility] Glucose, POCT, B 119 70 - 140 mg/dL 11/01/2024 7:33 AM [employer] PCLX Site Capillary 11/01/2024 7:33 AM [employer] PCLX Last Intake 3-4 hours 11/01/2024 7:33 AM [employer] PCLX Blood 11/01/2024 7:27 AM [employer] 11/01/2024 7:33 AM [employer]PER[employer] us Unknown Provider LAB POCT ORDERABLES-MANUAL Echo l Result POC [facility] [address] [place] [address], [facility] PCLX [facility] [address] [place] [address] * (ABNORMAL) Basic Metabolic Panel (10/31/2024 10:31 PM SUPER[employer]) Potassium, S 4.3 3.6 - 5.2 mmol/L 10/31/2024 11:32 PM [employer] DTL Sodium, S 140 135 - 145 mmol/L 10/31/2024 11:32 PM [employer] DTL Chloride, S 105 98 - 107 mmol/L 10/31/2024 11:32 PM [employer] DTL Bicarbonate, S 24 22 - 29 mmol/L 10/31/2024 11:32 PM [employer] DTL Anion Gap 11 7 - 15 10/31/2024 11:32 PM [employer] DTL BUN (Blood Urea Nitrogen), S 35(H) 6 - 21 mg/dL 10/31/2024 11:32 PM [employer] DTL Creatinine 1.77(H) 0.59 - 1.04 mg/dL 10/31/2024 11:32 PM [employer] DTL Estimated GFR (eGFR) 27(L) >=60 mL/min/BSA 10/31/2024 11:32 PM [employer] DTL Comment: Estimated GFR calculated using the 2020 CKD_EPI creatinine equation. Calcium, Total, S 8.6(L) 8.8 - 10.2 mg/dL 10/31/2024 11:32 PM [employer] DTL Glucose, S 158(H) 70 - 140 mg/dL 10/31/2024 11:32 PM [employer] DTL Blood (Blood, Venous) 10/31/2024 10:31 PM [employer] 10/31/2024 11:17 PM [employer] Teddy Sen M.D., M.S. LAB BLOOD ADD-ON Final Result [facility] [address] [place] [address], [place] [facility] [address] [place] [address] * (ABNORMAL) CBC with Differential, Blood (10/31/2024 10:31 PM SUPER[employer]) Hemoglobin 11.8 11.6 - 15.0 g/dL 10/31/2024 11:30 PM [employer] DTL Hematocrit 35.0(L) 35.5 - 44.9 % 10/31/2024 11:30 PM [employer] DTL Erythrocytes 3.98 3.92 - 5.13 x10(12)/L 10/31/2024 11:30 PM [employer] DTL MCV 87.9 78.2 - 97.9 fL 10/31/2024 11:30 PM [employer] DTL RBC Distrib Width 13.1 12.2 - 16.1 % 10/31/2024 11:30 PM [employer] DTL Platelet Count 105(L) 157 - 371 x10(9)/L 11/01/2024 12:23 AM [employer] DTL Comment:Results confirmed by smear, no clumping or interference seen. Leukocytes 10.0(H) 3.4 - 9.6 x10(9)/L 11/01/2024 12:23 AM [employer] DTL Neutrophils 7.94(H) 1.56 - 6.45 x10(9)/L 10/31/2024 11:30 PM [employer] DHPM Lymphocytes 0.88(L) 0.95 - 3.07 x10(9)/L 10/31/2024 11:30 PM [employer] DTL Monocytes 0.72 0.26 - 0.81 x10(9)/L 10/31/2024 11:30 PM [employer] DTL Eosinophils 0.38 0.03 - 0.48 x10(9)/L 10/31/2024 11:30 PM [employer] DTL Basophils 0.03 0.01 - 0.08 x10(9)/L 10/31/2024 11:30 PM [employer] DTL Blood (Blood, Venous) 10/31/2024 10:31 PM [employer] 10/31/2024 11:02 PM [employer] us Teddy Sen M.D., M.S. LAB BLOOD ADD-ON Final Result [facility] [address] [place] [address], [facility] DTL [facility] [address] [place] [address] DHPM [facility] [address] [place] [address] * (ABNORMAL) Glucose, POCT (10/31/2024 8:50 PM SUPER[employer]OR [employer]) Glucose, POCT, B 174(H) 70 - 140 mg/dL 10/31/2024 9:05 PM [employer] PCLX Site Capillary 10/31/2024 9:05 PM [employer] PCLX Blood 10/31/2024 8:50 PM [employer] 10/31/2024 9:05 PM [employer] us Unknown Provider LAB POCT ORDERABLES-MANUAL Echo l Result Performing Organization Address [facility]/ZIP Co de Phone Number POC [facility] [address] [place] [address], [place] PCLX [facility] [address] [place] [address] * (ABNORMAL) Glucose, POCT (10/31/2024 5:50 PM SUPERVISOR [employer]) Glucose, POCT, B 186(H) 70 - 140 mg/dL 10/31/2024 5:56 PM [employer] PCLX Site Capillary 10/31/2024 5:56 PM [employer] PCLX Last Intake 3-4 hours 10/31/2024 5:56 PM [employer] PCLX Blood 10/31/2024 5:50 PM [employer] 10/31/2024 5:57 PM [employer]PER[employer] us Unknown Provider LAB POCT ORDERABLES-MANUAL Echo l Result Performing Organization Address [facility] Co de Phone Number POC [facility] [address] [place] [address], [place] PCLX [facility] [address] [place] [address] * (ABNORMAL) Glucose, POCT (10/31/2024 12:43 PM SUPERVISOR [employer]) Glucose, POCT, B 284(H) 70 - 140 mg/dL 10/31/2024 12:45 PM [employer] PCLX Site Capillary 10/31/2024 12:45 PM [employer] PCLX Last Intake 3-4 hours 10/31/2024 12:45 PM [employer] PCLX Blood 10/31/2024 12:4 3 PM [employer] 10/31/2024 12:45 PM [employer]PER[employer] us Unknown Provider LAB POCT ORDERABLES-MANUAL Echo l Result Performing Organization Address City/[facility]/ZIP Co de Phone Number POC [facility] [address] [place] [address], [facility] PCLX [facility] [address] [place] [address] * (ABNORMAL) Glucose, POCT (10/31/2024 8:06 AM SUPERVISOR [employer]) [facility] Glucose, POCT, B 153(H) 70 - 140 mg/dL 10/31/2024 8:32 AM [employer] PCLX Site Capillary 10/31/2024 8:32 AM [employer] PCLX Last Intake 3-4 hours 10/31/2024 8:32 AM [employer] PCLX Blood 10/31/2024 8:06 AM [employer] 10/31/2024 8:33 AM [employer]PER[employer] Unknown Provider LAB POCT ORDERABLES-MANUAL Echo l Result Performing Organization Address [facility] Co de Phone Number POC [facility] [address] [place] [address], [facility] PCLX [facility] [address] [place] [address] * (ABNORMAL) CBC with Differential, Blood (10/30/2024 10:26 PM SUPERVISOR [employer]) [facility] Hemoglobin 12.0 11.6 - 15.0 g/dL 10/30/2024 10:53 PM [employer] DTL Hematocrit 36.8 35.5 - 44.9 % 10/30/2024 10:53 PM [employer] DTL Erythrocytes 4.19 3.92 - 5.13 x10(12)/L 10/30/2024 10:53 PM [employer]PER[employer] DTL MCV 87.8 78.2 - 97.9 fL 10/30/2024 10:53 PM [employer]PER[employer] DTL RBC Distrib Width 13.4 12.2 - 16.1 % 10/30/2024 10:53 PM [employer] DTL Platelet Count 116(L) 157 - 371 x10(9)/L 10/30/2024 11:26 PM [employer]PER[employer] DTL Comment:Results confirmed by smear, no clumping or interference seen. Leukocytes 8.9 3.4 - 9.6 x10(9)/L 10/30/2024 11:26 PM [employer] DTL Neutrophils 6.43 1.56 - 6.45 x10(9)/L 10/30/2024 10:53 PM [employer]PER[employer] DHPM Lymphocytes 1.47 0.95 - 3.07 x10(9)/L 10/30/2024 10:53 PM [employer]PER[employer] DTL Monocytes 0.61 0.26 - 0.81 x10(9)/L 10/30/2024 10:53 PM SUPER[employer] DTL Eosinophils 0.34 0.03 - 0.48 x10(9)/L 10/30/2024 10:53 PM [employer]PER[employer] DTL Basophils 0.04 0.01 - 0.08 x10(9)/L 10/30/2024 10:53 PM [employer] DTL Blood (Blood, Venous) 10/30/2024 10:26 PM [employer] 10/30/2024 10:47 PM [employer]PER[employer] us Marcia Nolasco M.D. LAB BLOOD ADD-ON Final Result [facility] [address] [place] [address], [facility] DTL [facility] [address] [place] [address] DHPM [facility] [address] [place] [address] * (ABNORMAL) Glucose, POCT (10/30/2024 9:22 PM SUPERVISOR FABRICATION AND ASSEMBLY) [facility] Glucose, POCT, B 210(H) 70 - 140 mg/dL 10/30/2024 9:25 PM SUPERVISOR [employer]ICATION AND ASSEMBLY PCLX Site Capillary 10/30/2024 9:25 PM SUPERVISOR [employer]ICATION [employer] ASSEMBLY PCLX Blood 10/30/2024 9:22 PM SUPERVISOR [employer]ICATION [employer] ASSEMBLY 10/30/2024 9:25 PM SUPERVISOR [employer]ICATION [employer] ASSEMBLY us Unknown Provider LAB POCT ORDERABLES-MANUAL Echo l Result POC [facility] [address] [place] [address], [facility] PCLX [facility] [address] [place] [address] * (ABNORMAL) Glucose, POCT (10/30/2024 5:52 PM SUPERVISOR FABRICATION AND ASSEMBLY) Glucose, POCT, B 222(H) 70 - 140 mg/dL 10/30/2024 9:22 PM SUPERVISOR [employer]ICATION AND ASSEMBLY PCLX Site Capillary 10/30/2024 9:22 PM SUPERVISOR [employer]ICATION AND ASSEMBLY PCLX Last Intake 2-3 hours 10/30/2024 9:22 PM SUPERVISOR [employer]ICATION AND ASSEMBLY PCLX Blood 10/30/2024 5:52 PM SUPERVISOR F[employer]ICATION AND ASSEMBLY 10/30/2024 9:22 PM SUPERVISOR F[employer]ICATION AND ASSEMBLY us Unknown Provider LAB POCT ORDERABLES-MANUAL Echo l Result POC [facility] [address] [place] [address], [facility] PCLX [facility] [address] [place] [address] * DX Hip Right with Mag Marker Anterior Posterior Proximal 1 View (10/30/2024 12:40 PM SUPERVISOR FABRICATION AND ASSEMBLY) Anatomical Region Laterality Modality Lower Extremity, Hip, Muscul oskeletal RST LOS, Musculoskeletal ARZ LOS, Muskuloskeletal FLA LOS Right Digit al Radiography Impressions 10/30/2024 12:58 PM SUPERVISOR F[employer]RICATION AND ASSEMBLY Diffuse demineralization. No definite acute displaced fracture or traumatic misalignment. Vascular calcifications. Narrative 10/30/2024 12:58 PM [employer] EXAM: DX HIP RIGHT WITH MAG MARKER ANTERIOR POSTERIOR PROXIMAL 1 VIEW Procedure Note Andrea Gerber D.O. - 10/30/2024 EXAM: DX HIP RIGHT WITH MAG MARKER ANTERIOR POSTERIOR PROXIMAL 1 VIEW IMPRESSION: Diffuse demineralization. No definite acute displaced fracture ortraumatic misalignment. Vascular calcifications. us Andrés Lee P.A.-C. IMG DIAGNOSTIC IMAGING PRO CEDURES Final Result * DX Pelvis 3+ Views (10/30/2024 12:40 PM SUPERVISOR [employer]) Anatomical Region Laterality Modality Pelvis, Musculoskeletal RST LOS, Musculoskeletal ARZ LOS, Muskuloskeletal FLA LOS N/A Digital Radiography Impressions 10/30/2024 1:01 PM [employer]OR [employer] No radiographic comparison. Acute, mildly displaced and comminuted fractures involving the left superior and inferior pubic rami. The superior ramus fracture extends into the left pubic body. The sacral fracture is better seen on the same day CT. Degenerative change, lower lumbar spine, pelvis and both hips. Spinal stimulator. Distended urinary bladder filled with contrast. Arterial calcification. Narrative 10/30/2024 1:01 PM [employer]OR [employer] EXAM: DX PELVIS 3+ VIEWS Procedure Note [...] urinary bladder filled with contrast.Arterial calcification. Andrés Lee P.A.-C. IMG DIAGNOSTIC IMAGING PRO CEDURES Final Result * DX Chest 1 View (10/30/2024 12:40 PM SUPERVISOR [employer]) Anatomical Region Laterality Modality Chest, Thoracic RST LOS, Tho racic ARZ LOS, Thoracic FLA LOS N/A Digital Radiography Impressions 10/30/2024 12:56 PM [employer] Lower lung volumes compared to 01/19/2024. Accentuated cardiomediastinal silhouette. Calcified tortuous aorta. AV pacemaker. Abandoned lead projects over the left hemithorax. Spinal stimulator. Surgical clips in the upper abdomen. Lower thoracic vertebroplasty. Narrative 10/30/2024 12:56 PM [employer] EXAM: DX CHEST 1 VIEW Procedure Note Ar Gallardo M.D. - 10/30/2024 EXAM: DX CHEST 1 VIEW IMPRESSION: Lower lung volumes compared to 01/19/2024. Accentuated cardiomediastinalsilhouette. Calcified tortuous aorta. AV pacemaker. Abandoned leadprojects over the left hemithorax. Spinal stimulator. Surgical clips inthe upper abdomen. Lower thoracic vertebroplasty. [facility] Jesus Regan. [facility]IC [facility]AGING PRO CEDURES Final Result * DX Femur Left 2 Views (10/30/2024 12:40 PM SUPERVISOR [employer]) Anatomical Region Laterality Modality Lower Extremity, Femur, Musc uloskeletal RST LOS, Musculoskeletal ARZ LOS, Muskuloskeletal FLA LOS Left Digit al Radiography Impressions 10/30/2024 12:57 PM [employer]OR [employer] Diffuse demineralization. Redemonstrated acute, fracture of the left pubic symphysis and adjacent pubic rami. Left sacral fracture better characterized on previous CT. Left TKA with patellar resurfacing. Small knee joint effusion. No definite acute fracture of the knee or radiographic evidence of hardware failure. Vascular calcifications. Excreted contrast in the bladder. Narrative 10/30/2024 12:57 PM [employer]OR [employer] EXAM: DX FEMUR LEFT 2 VIEWS Procedure [...] Vascular calcifications. Excreted contrast in the bladder. [facility] Jesus Regan. [facility] DIAGNOSTIC IMAGING PRO CEDURES Final Result * (ABNORMAL) Glucose, POCT (10/30/2024 11:37 AM SUPERVISOR [employer]) Glucose, POCT, B 159(H) 70 - 140 mg/dL 10/30/2024 2:24 PM [employer] PCLX Site Capillary 10/30/2024 2:24 PM [employer]OR [employer] PCLX Blood (Blood, Capillary) 10/30/2024 11:37 AM SU[employer]OR [employer] 10/30/2024 11:37 AM SUPERVISOR [employer] Andrés Lee P.A.-C. LAB POCT ORDERABLES-MANUAL Final Result Performing Organization Address [facility] Co de Phone Number POC [facility] [address] [place] [address], [place] PCLX [facility] [place] POC [address] [place] [address] * ECG 12 Lead (10/30/2024 10:52 AM SUPERVISOR [employer]) Ventricular Rate ECG/Min 70 BPM MUSE MI Interval 174 ms MUSE QRSD Interval 156 ms MUSE QT Interval 434 ms MUSE QTC Interval 468 ms MUSE P [place] 73 degrees MUSE R [place] -76 degrees MUSE T Wave [place] 76 degrees MUSE 10/30/2024 10:5 2 AM [employer] 10/30/2024 11:02 AM SUPERVISOR [employer] Impressions MUSE - 10/30/2024 11:02 AM SUPERVISOR [employer] Atrial-sensed ventricular-paced rhythm Sinus rhythm When compared with ECG of 19-Jan-2024 07:23, Vent. rate has decreased by 23 bpm QT has shortened Reviewed by FRANDY Lester Narrative Procedure Note Yared Haines M.D., Ph.D. - 10/30/2024 IMPRESSION: Atrial-sensed ventricular-paced rhythm Sinus rhythm When compared with ECG of 19-Jan-2024 07:23, Vent. rate has decreased by 23 bpm QT has shortened Reviewed by FRANDY Lester Andrés Lee P.A.-C. ECG ORDERABLES Final Resu lt Performing Organization Address City/[facility]/ZIP Co de Phone Number MUSE NA * Type and Screen (with Reflex Antibody ID) (10/30/2024 10:48 AM SUPERVISOR [employer]) Pathologist [facility] ABORh B Pos Not applicable 10/30/2024 11:24 AM SUPERVISOR [employer] STRM Antibody Screen Negative Negative 10/30/2024 11:39 AM SUPERVISOR [employer] STRM Type & Screen Expiration 11/02/2024 23:59 10/30/2024 11:24 AM SUPERVISOR [employer] STRM Testing Location [place] DEFAULT 10/30/2024 10:54 AM SUPERVISOR [employer]ICATION [employer] STR Blood (Blood, Venous) 10/30/2024 10:48 AM SUPERVISOR [employer]Y 10/30/2024 10:54 AM SUPERVISOR [employer] Andrés Lee P.A.-C. LAB BLOOD BANK TEST ORDERA BLES Final Result Performing Organization Address [facility] de Phone Number [facility] [address] [place] [address], [facility] STRM [facility] [address] [place] [address] * (ABNORMAL) Prothrombin Time (PT) (10/30/2024 10:48 AM SUPERVISOR [employer]) Prothrombin Time, P 12.9(H) 9.4 - 12.5 sec 10/30/2024 11:00 AM SUPERVISOR [employer] STMA INR 1.2 0.9 - 1.1 10/30/2024 11:00 AM SUPERVISOR [employer] STMA Comment: ----ADDITIONAL INFORMATION---- Standard intensity warfarin therapeutic range: 2.0 to 3.0 High intensity warfarin therapeutic range: 2.5 to 3.5 Blood (Blood, Venous) 10/30/2024 10:48 AM SUPERVISOR [employer]Y 10/30/2024 10:54 AM SUPERVISOR [employer]Y Andrés Lee P.A.-C. LAB BLOOD ADD-ON Final Res ult Performing Organization Address [facility] Co de Phone Number [facility] [address] [place] [address], [facility] STMA [facility] [address] [place] [address] * (ABNORMAL) Basic Metabolic Panel (10/30/2024 10:48 AM SUPERVISOR [employer]) Potassium, P 4.7 3.6 - 5.2 mmol/L 10/30/2024 11:09 AM SUPERVISOR [employer] STMA Sodium, P 139 135 - 145 mmol/L 10/30/2024 11:09 AM SUPERVISOR [employer] STMA Chloride, P 104 98 - 107 mmol/L 10/30/2024 11:09 AM SUPERVISOR [employer] STMA Bicarbonate, P 24 22 - 29 mmol/L 10/30/2024 11:09 AM SUPERVISOR [employer]ICATION [employer] STMA Anion Gap, P 11 7 - 15 10/30/2024 11:09 AM SUPERVISOR [employer] STMA BUN (Blood Urea Nitrogen), P 33(H) 6 - 21 mg/dL 10/30/2024 11:09 AM SUPERVISOR [employer] STMA Creatinine 1.49(H) 0.59 - 1.04 mg/dL 10/30/2024 11:09 AM SUPERVISOR [employer] STMA Estimated GFR (eGFR) 34(L) >=60 mL/min/BSA 10/30/2024 11:09 AM SUPERVISOR [employer] STMA Comment: Estimated GFR calculated using the 2020 CKD_EPI creatinine equation. Calcium, Total, P 8.7(L) 8.8 - 10.2 mg/dL 10/30/2024 11:09 AM SUPERVISOR [employer] STMA Glucose, P 165(H) 70 - 140 mg/dL 10/30/2024 11:09 AM SUPERVISOR [employer] STMA Blood (Blood, Venous) 10/30/2024 10:48 AM SUPERVISOR [employer]BLY 10/30/2024 10:54 AM SUPERVISOR [employer] us Andrés Lee P.A.-C. LAB BLOOD ADD-ON Final Res ult [facility] [address] [place] [address], [facility] [address] [place] [address] * (ABNORMAL) CBC with Differential, Blood (10/30/2024 10:48 AM SUPERVISOR [employer]) Hemoglobin 12.3 11.6 - 15.0 g/dL 10/30/2024 10:56 AM SUPERVISOR [employer] STMA Hematocrit 37.2 35.5 - 44.9 % 10/30/2024 10:56 AM SUPERVISOR [employer] STMA Erythrocytes 4.24 3.92 - 5.13 x10(12)/L 10/30/2024 10:56 AM SUPERVISOR [employer]ICATION [employer] STMA MCV 87.7 78.2 - 97.9 fL 10/30/2024 10:56 AM SUPERVISOR [employer] STMA RBC Distrib Width 13.0 12.2 - 16.1 % 10/30/2024 10:56 AM SUPERVISOR [employer] STMA Platelet Count 132(L) 157 - 371 x10(9)/L 10/30/2024 10:56 AM SUPERVISOR [employer] STMA Leukocytes 11.1(H) 3.4 - 9.6 x10(9)/L 10/30/2024 10:56 AM SUPERVISOR [employer] STMA Neutrophils 9.70(H) 1.56 - 6.45 x10(9)/L 10/30/2024 10:56 AM SUPERVISOR [employer] DHPM Lymphocytes 0.72(L) 0.95 - 3.07 x10(9)/L 10/30/2024 10:56 AM SUPERVISOR [employer] STMA Monocytes 0.62 0.26 - 0.81 x10(9)/L 10/30/2024 10:56 AM SUPERVISOR [employer] STMA Eosinophils <0.03 0.03 - 0.48 x10(9)/L 10/30/2024 10:56 AM SUPERVISOR [employer] STMA Basophils 0.03 0.01 - 0.08 x10(9)/L 10/30/2024 10:56 AM SUPERVISOR [employer]ICATION [employer]BL[employer] STMA Blood (Blood, Venous) 10/30/2024 10:48 AM SUPERVISOR [employer]BLY 10/30/2024 10:54 AM SUPERVISOR [employer]ICATION [employer]SEMBL[employer] us Andrés Lee P.A.-C. LAB BLOOD ADD-ON Final Res ult [facility] [address] [place] [address], [facility] STMA [facility] [address] [place] [address] DHPM [facility] [address] [place] [address] * CT Abdomen Pelvis without and with IV Contrast (10/30/2024 10:42 AM SUPERVISOR [employer]ICATION [employer]SEMBLY) Anatomical Region Laterality Modality Abdomen, Pelvis, Abdominal R ST LOS, Abdominal ARZ LOS, Abdominal FLA LOS N/A Computed Tomograp hy, Computed Tomography 10/30/2024 10:4 3 AM SUPERVISOR [employer]ICATION [employer]BLY Impressions 10/30/2024 11:25 AM SUPERVISOR [employer] Mildly displaced acute fractures in the left pelvis and sacrum, with associated blood products and intramuscular hematomas. No active hemorrhage. Narrative 10/30/2024 11:25 AM SUPERVISOR [employer]ICATION [employer] ASSEMBLY EXAM: CT CHEST WITHOUT IV CONTRAST, CT [...] hematomas. No activehemorrhage. us Andrés Lee P.A.-C. IM CT PROCEDURES Final Re sult * CT Thoracic and Lumbar Spine by Reconstruction (10/30/2024 10:42 AM SUPERVISOR [employer]ICATION [employer]SEMBLY) Anatomical Region Laterality Modality Thoracic Spine, Neuroradiolo gy RST LOS, Neuroradiology ARZ LOS, Neuroradiology FLA LOS N/A Computed Tomography, Compute d Tomography Impressions 10/30/2024 11:35 AM SUPERVISOR [employer]BL[employer] 1. Negative for acute traumatic finding in the thoracolumbar spine. 2. 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 Narrative 10/30/2024 11:35 AM SUPERVISOR [employer]ICATION [employer]SEMBLY EXAM: CT THORACIC AND LUMBAR SPINE BY [...] unchanged since 01/19/2024. us Andrés Lee P.A.-C. IMG CT PROCEDURES Final Re sult * CT Chest without IV Contrast (10/30/2024 10:42 AM SUPERVISOR [employer]ICATION [employer]SEMBLY) Anatomical Region Laterality Modality Chest, Thoracic RST LOS, Tho racic ARZ LOS, Thoracic FLA LOS N/A Computed Tomography, Compute d Tomography Impressions 10/30/2024 11:25 AM SUPERVISOR [employer]ICATION [employer]SEMBLY Mildly displaced acute fractures in the left pelvis and sacrum, with associated blood products and intramuscular hematomas. No active hemorrhage. Narrative 10/30/2024 11:25 AM SUPERVISOR [employer]ICATION [employer] ASSEMBLY EXAM: CT CHEST WITHOUT IV CONTRAST, CT [...] Head without IV Contrast (10/30/2024 10:42 AM SUPERVISOR [employer]ICATION [employer]SEMBLY) Anatomical Region Laterality Modality Head, Neuroradiology RST LOS , Neuroradiology ARZ LOS, Neuroradiology FLA LOS N/A Computed Tomography, Compute d Tomography 10/30/2024 9:50 AM SUPERVISOR [employer]ICATION [employer]SEMBLY Impressions 10/30/2024 10:19 AM SUPERVISOR [employer]ICATION [employer]SEMBL[employer] Left parietal posttraumatic extra cranial soft tissue swelling with small soft tissue hematoma. No subjacent calvarial fracture. No acute intracranial findings. Narrative 10/30/2024 10:19 AM SUPERVISOR [employer]ICATION [employer]SEMBLY EXAM: CT HEAD WITHOUT IV CONTRAST COMPARISON: [...] calvarial fracture. No acuteintracranial findings. us Andrés SOLER CT PROCEDURES Final Re sult * CT Cervical Spine without IV Contrast (10/30/2024 10:42 AM SUPERVISOR F[employer]ICATION [employer]SEMBLY) Anatomical Region Laterality Modality Cervical Spine, Neuroradiolo gy RST LOS, Neuroradiology ARZ LOS, Neuroradiology FLA LOS N/A Computed Tomography, Compute d Tomography 10/30/2024 9:50 AM SUPERVISOR [employer]ICATION [employer]BLY Impressions 10/30/2024 11:36 AM SUPERVISOR [employer]ICATION [employer]SEMBLY Multilevel cervical degenerative spondylotic changes. No cervical vertebral body fracture detected. Prevertebral soft tissues within normal limits. Stable spondylotic changes with canal and bony neural foraminal narrowing, as described, unchanged from 01/19/2024. Narrative 10/30/2024 11:36 AM SUPERVISOR [employer]ICATION [employer]SEMBLY EXAM: CT CERVICAL SPINE WITHOUT IV CONTRAST [...] as described, unchanged from 01/19/2024. us Andrés Lee P.A.-C. IMG CT PROCEDURES Final Re sult * (ABNORMAL) Creatinine, POCT (10/30/2024 10:18 AM SUPERVISOR [employer]BL[employer]) Estimated GFR (eGFR), POCT 31(L) >=60 mL/min/BSA 10/30/2024 10:38 AM SUPERVISOR [employer]ICATION [employer]SEMBLY PCED Comment: Estimated GFR calculated using the 2020 CKD_EPI creatinine equation. Blood 10/30/2024 10:1 8 AM SUPERVISOR [employer]SEMBLY 10/30/2024 10:38 AM SUPERVISOR [employer]ICATION [employer]SEMBLY us Unknown Provider LAB POCT ORDERABLES - DEVICE Fi nal Result Performing Organization Address [facility] Co de Phone Number POC T [facility] [address] [place] [address], [facility] PCED [facility] [address] [place] [address] * (ABNORMAL) Creatinine, POCT (10/30/2024 10:18 AM SUPERVISOR [employer]ICATION [employer]SEMBLY) Creatinine, POCT, B 1.6(H) 0.6 - 1.0 mg/dL 10/30/2024 10:38 AM SUPERVISOR [employer]ICATION [employer]SEMBL[employer] PCDT Comment: ----ADDITIONAL INFORMATION---- Performed at the Point of Care Blood 10/30/2024 10:1 8 AM SUPERVISOR [employer]ICATION [employer]SEMBLY 10/30/2024 10:38 AM SUPERVISOR [employer]ICATION [employer]SEMBLY us Unknown Provider LAB POCT ORDERABLES - DEVICE Fi nal Result Performing Organization Address [facility] Co de Phone Number [facility] PERFORMING LABS [address] [place] [address], [facility] PCDT [facility] POC [address] [place] [address] documented in this encounter Visit Diagnoses Diagnosis Fracture Sacrum Closed Initial (HCC)- Primary Fracture Sacrum Closed Initial (HCC) Fracture Lumbosacral Spine And Pelvis Closed Initial (HCC) Decline Functional Status [R53.81] Urinary Tract Infection Site Not Specified Atrial Fibrillation Unspecified (HCC) Chronic Kidney Disease (CKD), Stage 3 Unspecified (HCC) Diabetes Mellitus Type 2 (HCC) Block Atrioventricular Complete (HCC) Hyperlipidemia documented in this encounter Admitting Diagnoses Diagnosis Fracture Sacrum Closed Initial (HCC) documented in this encounter Administered Medications Inactive Administered Medications - up to 3 most recent administrations Medication Order MAR Action Action Date Dose Rate Site acetaminophen tablet 1,000 mg (TylenoL) 1,000 mg, oral, Every 8 hours, First dose (after last modification) on Wed11/03/24 at 0800 Given 11/07/2024 7:43 AM SUPERVISOR [employer] 1,000 mg Given 11/07/2024 12:22 AM SUPERVISOR [employer]BLY 1,000 mg Given 11/06/2024 5:27 PM SUPER[employer]OR [employer] 1,000 mg acetaminophen tablet 650 mg (TylenoL) 650 mg, oral, Every 6 hours, First dose on Wed10/30/24 at 1415 Given 11/03/2024 12:30 AM SU[employer]OR [employer] 650 mg Given 11/02/2024 9:57 PM SUPERVISOR [employer]BL[employer] 650 mg Given 11/02/2024 1:51 PM SUPERVISOR [employer]BL[employer] 650 mg [id number] in Lipoderm 2%-5%-5% cream 1 g 1 g, topical, 2 times daily, First dose on Wed11/05/24 at 2100 Given 11/07/2024 7:43 AM SU[employer]OR [employer] 1 g Given 11/06/2024 8:50 PM SUPERVISOR [employer]BL[employer] 1 g Given 11/06/2024 8:00 AM SUPERVISOR [employer]BLY 1 g apixaban tablet 2.5 mg (Eliquis) 2.5 mg, oral, 2 times daily, First dose (after last modification) on Wed11/01/24 at 2100 Given 11/07/2024 7:43 AM SUPERVISOR [employer]BL[employer] 2.5 mg Given 11/06/2024 8:50 PM SUPERVISOR [employer]BLY 2.5 mg Given 11/06/2024 8:00 AM SUPERVISOR [employer]BL[employer] 2.5 mg bisacodyL suppository 10 mg (Dulcolax) 10 mg, rectal, Once, On Wed10/31/24 at 1145, For 1 dose Given 10/31/2024 2:15 PM SUPER[employer]OR [employer] 10 mg bisacodyL suppository 10 mg (Dulcolax) 10 mg, rectal, Daily PRN, constipation, Starting on Wed11/01/24 at 1145 cefTRIAXone in dextrose (iso osm) IVPB 2 g (Rocephin) 2 g, intravenous, at 200 mL/hr, Administer over 15 Minutes, Every 24 hours, First dose on Wed11/05/24 at 1700, Drug Monitoring Program: Pharmacist to adjust medication dosing based on indication and drug clearance factors., Indications: Lower UTI, catheterIndications:Lower UTI, catheter New Bag 11/06/2024 5:27 PM SU[employer]OR [employer] 2 g 200 mL/hr New Bag 11/05/2024 5:16 PM SUPERVISOR [employer] 2 g 200 mL/hr dextrose 40% gel 15 g of dextrose (Glutose) 15 g of dextrose, oral, As needed, low blood sugar, For glucose 54-70 mg/dL, Starting on Wed11/01/24 at 1948, If patient is conscious and able to swallow safely and has a fuctioning gastrointestinal tract or on Acarbose (Precose ) or Miglitol (Glyset ). May use tablets or gel. 1 g dextrose 40% gel = 0.4 g of dextrose (Example: 37.5 g dextrose 40% gel = 15 g of dextrose). dextrose 50 % injection 12.5 g 12.5 g, intravenous, As needed, low blood sugar, For glucose 54-70 mg/dL, Starting on Wed11/01/24 at 1948, If the patient has intravenous access available, is not able to take oral feeding safely, does not have a functioning gastrointestinal tract or feeding tube, or is NPO, administer D50W intravenously. Given 11/01/2024 7:53 PM SUPER[employer]OR [employer] 12.5 g dextrose 50 % injection 25 g 25 g, intravenous, As needed, low blood sugar, For glucose less than 54 mg/dL, Starting on Wed11/01/24 at 1948, If intravenous access is available, administer D50W intravenously diclofenac sodium 1 % gel 4 g (Voltaren) 4 g, topical, 4 times daily, First dose on Wed10/30/24 at 1700, Do not exceed 32 g per day, over all affected joints. Use dosing card to measure product. 2 g = 2.25 inches, 4 gm = 4.5 inches. Rinse dosing card after use and save for each administration. Given 11/07/2024 12:18 PM SU[employer]OR [employer] 4 g Given 11/07/2024 7:44 AM SUPERVISOR [employer]BLY 4 g Given 11/06/2024 1:53 PM SUPERVISOR [employer]BLY 4 g Ba ck empagliflozin tablet 10 mg (Jardiance) 10 mg, oral, Daily before morning meal, First dose on Wed11/01/24 at 0700, On hold since Wed11/02/2024 at 0712 until manually unheld Given 11/02/2024 6:16 AM SUPER[employer]OR [employer] 10 mg Given 11/01/2024 6:00 AM SUPER[employer]OR [employer] 10 mg escitalopram tablet 5 mg (Lexapro) 5 mg, oral, Daily, First dose on Wed10/31/24 at 0900 Given 11/07/2024 7:43 AM SUPERVISOR [employer]BL[employer] 5 mg Given 11/06/2024 8:00 AM SUPERVISOR [employer]BLY 5 mg Given 11/05/2024 8:01 AM SUPERVISOR [employer]ICATION [employer]SEMBLY 5 mg fentaNYL injection 50 mcg (Sublimaze) 50 mcg, intravenous, Once, On Wed10/30/24 at 1044, For 1 dose Given 10/30/2024 11:06 AM SUPERVISOR [employer]BLY 50 mcg furosemide tablet 40 mg (Lasix) 40 mg, oral, Daily, First dose on Wed11/01/24 at 1215, On hold since Wed11/02/2024 at 0922 until manually unheld Given 11/02/2024 9:09 AM SUPERVISOR [employer] 40 mg Given 11/01/2024 12:45 PM SUPERVISOR [employer]BLY 40 mg furosemide tablet 40 mg (Lasix) 40 mg, oral, Daily, First dose (after last modification) on Wed11/03/24 at 0945 Given 11/04/2024 8:29 AM SUPERVISOR [employer]BLY 40 mg Given 11/03/2024 10:26 AM SUPERVISOR [employer]BLY 40 mg furosemide tablet 40 mg (Lasix) 40 mg, oral, Daily, First dose (after last modification) on Wed11/05/24 at 1615 Given 11/06/2024 8:00 AM SUPERVISOR [employer]BLY 40 mg Given 11/05/2024 5:16 PM SUPERVISOR [employer]BL[employer] 40 mg glucose chewable tablet 16 g 16 g, oral, As needed, low blood sugar, For glucose 54-70 mg/dL, Starting on Wed11/01/24 at 1948, If patient is conscious and able to swallow safely and has a functioning gastrointestinal tract or on Acarbose (Precose ) or Miglitol (Glyset ). Administer 4 tablets to total 16 grams. May use tablets or gel. HYDROmorphone tablet 1 mg (Dilaudid) 1 mg, oral, Every 4 hours PRN, moderate pain or score 4-6 of 10, severe pain or score 7-10 of 10, Starting on Wed11/05/24 at 0814, Does patient have renal impairment, frailty, or advanced age (avoid morphine) and unable to take oxycodone? Yes, Did the patient fail other oral opioids during hospitalization? Yes, Does the patient have documented allergies to oxycodone and/or morphine? No, Is the patient on hydromorphone chronically for pain? No Given 11/05/2024 12:48 PM SUPERVISOR [employer] 1 mg insulin aspart U-100 (Carbohydrate Count) injection 0-20 Units (NovoLOG FlexPen) 0-20 Units, subcutaneous, 3 times daily with meals, First dose on Wed10/31/24 at 1200, Simple or Complex Ratio: Simple, Carb Ratio - Simple (1 unit per __ grams of carbohydrates): 20 Given 10/31/2024 6:28 PM SUPERVISOR [employer] 2 Units Left Lower Abdomen Given 10/31/2024 2:16 PM SUPERVISOR [employer]BLY 1 Units Le ft Lower Abdomen insulin aspart U-100 (Carbohydrate Count) injection 0-20 Units (NovoLOG FlexPen) 0-20 Units, subcutaneous, 3 times daily with meals, First dose (after last modification) on Wed11/01/24 at 0800, Simple or Complex Ratio: Simple, Carb Ratio - Simple (1 unit per __ grams of carbohydrates): 10 Given 11/02/2024 10:57 AM SUPERVISOR [employer]SEMBLY 6 Units Left Lower Abdomen Given 11/01/2024 4:21 PM SUPERVISOR [employer]ICATION [employer]SEMBLY 4 Units Le ft Lower Abdomen Given 11/01/2024 11:48 AM SUPERVISOR [employer]ICATION [employer]SEMBLY 3 Units L eft Lower Abdomen insulin aspart U-100 (Carbohydrate Count) injection 0-20 Units (NovoLOG FlexPen) 0-20 Units, subcutaneous, 3 times daily with meals, First dose (after last modification) on Wed11/03/24 at 1200, Simple or Complex Ratio: Simple, Carb Ratio - Simple (1 unit per __ grams of carbohydrates): 15 Given 11/04/2024 9:52 AM SUPERVISOR [employer]SEMBLY 2 Units Left Lower Abdomen insulin aspart U-100 (Carbohydrate Count) injection 0-20 Units (NovoLOG FlexPen) 0-20 Units, subcutaneous, 3 times daily with meals, First dose (after last modification) on Wed11/04/24 at 1430, Simple or Complex Ratio: Simple, Carb Ratio - Simple (1 unit per __ grams of carbohydrates): 10 Given 11/07/2024 9:44 AM SUPERVISOR [employer] 3 Units Right Lower Abdomen Given 11/06/2024 6:37 PM [employer] 6 Units Le ft Lower Abdomen Given 11/06/2024 1:49 PM [employer] 7 Units Ri ght Lower Abdomen insulin aspart U-100 injection 0-13 Units (NovoLOG FlexPen) 0-13 Units, subcutaneous, 3 times daily, First dose on 10/30/24 at 1700, Insulin Scale: Moderate Correction Scale, 140 - 179: 2 units, 180 - 219: 4 units, 220 - 259: 6 units, 260 - 299: 8 units, 300 - 339: 10 units, 340 - 379: 12 units, 380 - 399: 13 units, Greater than 399: Call service writing Insulin orders Given 11/01/2024 5:33 PM [employer] 6 Units Left Lower Abdomen Given 11/01/2024 4:21 PM [employer] 4 Units Le ft Lower Abdomen Given 10/31/2024 6:28 PM [employer] 4 Units Le ft Lower Abdomen insulin aspart U-100 injection 0-13 Units (NovoLOG FlexPen) 0-13 Units, subcutaneous, 3 times daily, First dose (after last modification) on 11/05/24 at 1200, Insulin Scale: Moderate Correction Scale, 140 - 179: 2 units, 180 - 219: 4 units, 220 - 259: 6 units, 260 - 299: 8 units, 300 - 339: 10 units, 340 - 379: 12 units, 380 - 399: 13 units, Greater than 399: Call service writing Insulin orders Given 11/07/2024 12:17 PM [employer] 4 Units Left Lower Abdomen Given 11/07/2024 9:45 AM [employer] 4 Units Ri ght Lower Abdomen Given 11/06/2024 5:44 PM [employer] 2 Units Ri ght Lower Abdomen insulin aspart U-100 injection 0-7 Units (NovoLOG FlexPen) 0-7 Units, subcutaneous, 3 times daily, First dose (after last modification) on [place] 11/02/24 at 0800, Insulin Scale: Mild Correction Scale, 180 - 219: 2 units, 220 - 259: 3 units, 260 - 299: 4 units, 300 - 339: 5 units, 340 - 379: 6 units, 380 - 399: 7 units, Greater than 399: Call service writing Insulin orders Given 11/05/2024 8:02 AM [employer] 2 Units Left Lower Abdomen Given 11/04/2024 8:06 PM [employer] 2 Units Le ft Lower Abdomen Given 11/04/2024 3:15 PM [employer] 3 Units Le ft Lower Abdomen insulin glargine injection 12 Units 12 Units, subcutaneous, Every morning, First dose (after last modification) on [place] 11/02/24 at 0900 Given 11/05/2024 8:03 AM [employer] 12 Units Left Lower Abdomen Given 11/04/2024 8:54 AM [employer] 12 Units Le ft Lower Abdomen Given 11/03/2024 9:24 AM [employer] 12 Units Le ft Lower Abdomen insulin glargine injection 14 Units 14 Units, subcutaneous, Every morning, First dose (after last modification) on Wed11/06/24 at 0900 Given 11/07/2024 9:00 AM [employer] 14 Units Left Lower Abdomen Given 11/06/2024 8:01 AM [employer] 14 Units Le ft Lower Abdomen insulin glargine injection 15 Units 15 Units, subcutaneous, Every morning, First dose (after last modification) on Wed10/31/24 at 0900 Given 11/01/2024 9:22 AM [employer] 15 Units Left Lower Abdomen Given 10/31/2024 10:45 AM [employer] 15 Units R ight Lower Abdomen insulin glargine injection 2 Units 2 Units, subcutaneous, Once, On 11/05/24 at 0945, For 1 dose, Additional dose this morning. Given 11/05/2024 9:52 AM [employer] 2 Units Right Upper Arm (Back) insulin glargine injection 20 Units 20 Units, subcutaneous, Once, On Wed10/30/24 at 1121, For 1 dose Given 10/30/2024 11:41 AM [employer] 20 Units Right Lower Abdomen iohexoL 350 mg iodine/mL solution 1-200 mL (Omnipaque) 1-200 mL, intravenous, Once in imaging, contrast, Starting on Wed10/30/24 at 1019, For 1 dose Given 10/30/2024 10:25 AM [employer] 115 mL Lactated Ringer's 250 mL/hr, intravenous, Continuous, Starting on Wed11/06/24 at 0715, For 2 hours New Bag 11/06/2024 7:51 AM [employer] 250 mL/hr 250 mL/hr lidocaine 5 % 1 patch (Lidoderm) 1 patch, transdermal, Administer over 12 Hours, Daily, First dose on Wed10/31/24 at 0900, Remove after 12 hours. Medication Applied 11/07/2024 7:42 AM [employer] 1 patch Upper Back Medication Applied 11/06/2024 8:01 AM [employer] 1 patch Lower Back Medication Applied 11/05/2024 8:03 AM [employer] 1 patch Left Leg lubiprostone capsule 24 mcg (Amitiza) 24 mcg, oral, 2 times daily, First dose on Wed10/30/24 at 2100, Swallow whole. Do NOT crush, chew or open capsule. Given 11/07/2024 7:43 AM [employer] 24 mcg Given 11/06/2024 8:50 PM [employer] 24 mcg Given 11/06/2024 8:00 AM [employer] 24 mcg melatonin tablet 3 mg 3 mg, oral, Daily at bedtime, First dose on Wed11/03/24 at 2100 Given 11/06/2024 8:50 PM [employer] 3 mg Given 11/05/2024 9:24 PM [employer] 3 mg Given 11/04/2024 8:03 PM [employer] 3 mg metoprolol tablet 12.5 mg (Lopressor) 12.5 mg, oral, 2 times daily, First dose on Wed10/30/24 at 2100 Given 11/07/2024 7:45 AM [employer] 12.5 mg Given 11/06/2024 8:50 PM [employer] 12.5 mg Given 11/06/2024 8:00 AM [employer] 12.5 mg nystatin 100,000 unit/gram powder 1 Application (Nystop) 1 Application, topical, 3 times daily, First dose on Wed11/01/24 at 1400 Given 11/07/2024 7:42 AM [employer] 1 Applica tion Given 11/06/2024 8:54 PM [employer] 1 Application Given 11/06/2024 1:53 PM [employer] 1 Application oxyCODONE IR tablet 2.5 mg (Roxicodone) 2.5 mg, oral, Once, On Wed10/31/24 at 0000, For 1 dose Given 10/30/2024 11:43 PM [employer] 2.5 mg oxyCODONE IR tablet 2.5 mg (Roxicodone) 2.5 mg, oral, Once, On Wed11/03/24 at 0100, For 1 dose Given 11/03/2024 12:45 AM [employer] 2.5 mg oxyCODONE IR tablet 5 mg (Roxicodone) 5 mg, oral, Every 12 hours PRN, severe pain or score 7-10 of 10, Starting on Wed10/30/24 at 1353, Indications: Chronic Pain/Nonacute PainIndications:Chronic Pain/Nonacute Pain Given 10/30/2024 10:07 PM [employer] 5 mg oxyCODONE IR tablet 5 mg (Roxicodone) 5 mg, oral, Every 6 hours PRN, moderate pain or score 4-6 of 10, Starting on Wed10/30/24 at 2332, Indications: Chronic Pain/Nonacute PainIndications:Chronic Pain/Nonacute Pain Given 11/02/2024 9:57 PM [employer] 5 mg oxyCODONE IR tablet 5 mg (Roxicodone) 5 mg, oral, Every 4 hours PRN, moderate pain or score 4-6 of 10, severe pain or score 7-10 of 10, Starting on Wed11/03/24 at 1020, Indications: Chronic Pain/Nonacute PainIndications:Chronic Pain/Nonacute Pain Given 11/05/2024 8:10 AM [employer] 5 mg Given 11/04/2024 8:03 PM [employer] 5 mg Given 11/04/2024 3:16 PM [employer] 5 mg oxyCODONE IR tablet 5 mg (Roxicodone) 5 mg, oral, Every 4 hours PRN, moderate pain or score 4-6 of 10, severe pain or score 7-10 of 10, Starting on Wed11/05/24 at 1517 Given 11/06/2024 8:50 PM [employer] 5 mg Given 11/06/2024 5:20 AM [employer] 5 mg Given 11/06/2024 1:12 AM [employer] 5 mg oxyCODONE IR tablet 7.5 mg (Roxicodone) 7.5 mg, oral, Every 6 hours PRN, severe pain or score 7-10 of 10, Starting on Wed10/30/24 at 2332, Indications: Chronic Pain/Nonacute PainIndications:Chronic Pain/Nonacute Pain Given 11/03/2024 5:43 AM [employer] 7 .5 mg Given 11/01/2024 7:41 PM [employer] 7.5 mg Given 11/01/2024 9:35 AM [employer] [address] tablet 40 mg (Protonix) 40 mg, oral, Daily before morning meal, First dose on Wed10/31/24 at 0700, pantoprazole 40 mg oral daily was interchanged for omeprazole 20 or 40 mg oral daily Swallow whole. Do NOT crush, chew, or split tablet. Given 11/07/2024 6:10 AM [employer] 40 mg Given 11/06/2024 5:20 AM [employer] 40 mg Given 11/05/2024 6:00 AM [employer] 40 mg polyethylene glycol powder packet 17 g (Miralax) 17 g, oral, Once, On Wed10/31/24 at 1145, For 1 dose, Dissolve in 240 mLs (8 ounces) of water prior to giving. Avoid mixing with starch-based thickened liquids. Given 10/31/2024 2:15 PM [employer] 17 g polyethylene glycol powder packet 17 g (Miralax) 17 g, oral, Daily, First dose (after last reorder) on Wed11/01/24 at 0900, Dissolve in 240 mLs (8 ounces) of water prior to giving. Avoid mixing with starch-based thickened liquids. Given 11/04/2024 8:30 AM [employer] 17 g Given 11/01/2024 9:17 AM [employer] 17 g polyethylene glycol powder packet 17 g (Miralax) 17 g, oral, Daily PRN, constipation, Starting on 11/05/24 at 0700, Dissolve in 240 mLs (8 ounces) of water prior to giving. Avoid mixing with starch-based thickened liquids. Given 11/05/2024 8:01 AM [employer] 17 g polyethylene glycol powder packet 17 g (Miralax) 17 g, oral, Daily, First dose (after last modification) on Wed11/06/24 at 1330, Dissolve in 240 mLs (8 ounces) of water prior to giving. Avoid mixing with starch-based thickened liquids. Given 11/07/2024 7:42 AM [employer] 17 g Given 11/06/2024 1:49 PM [employer] 17 g pregabalin capsule 25 mg (Lyrica) 25 mg, oral, Daily at bedtime, First dose on Wed10/31/24 at 2100 Given 11/02/2024 9:57 PM [employer] 25 mg Given 11/01/2024 7:41 PM [employer] 25 mg Given 10/31/2024 8:54 PM [employer] 25 mg pregabalin capsule 25 mg (Lyrica) 25 mg, oral, Daily, First dose on Wed11/03/24 at 1145 Given 11/07/2024 7:43 AM [employer] 25 mg Given 11/06/2024 8:00 AM [employer] 25 mg Given 11/05/2024 8:01 AM [employer] 25 mg pregabalin capsule 50 mg (Lyrica) 50 mg, oral, Daily at bedtime, First dose (after last modification) on Wed11/03/24 at 2100 Given 11/06/2024 8:50 PM [employer] 50 mg Given 11/05/2024 9:24 PM [employer] 50 mg Given 11/04/2024 8:03 PM [employer] 50 mg sennosides-docusate sodium 8.6-50 mg per tablet 1 tablet (Senokot-S) 1 tablet, oral, 2 times daily, First dose on Wed10/30/24 at 2100 Given 10/31/2024 10:42 AM [employer] 1 tablet Given 10/30/2024 8:16 PM [employer] 1 tablet sennosides-docusate sodium 8.6-50 mg per tablet 2 tablet (Senokot-S) 2 tablet, oral, 2 times daily, First dose (after last modification) on Wed10/31/24 at 2100 Given 11/07/2024 7:44 AM [employer] 2 tablets Given 11/06/2024 8:00 AM [employer] 2 tablets Given 11/05/2024 8:01 AM [employer] 2 tablets sodium chloride (PF) 0.9 % injection 50 mL 50 mL, intravenous, Once, On Wed10/30/24 at 1021, For 1 dose Given 10/30/2024 10:24 AM [employer] 40 mL documented in this encounter Active and Recently Administered Medications Times are shown in [employer]. Scheduled Medication Order 11/05/2024 11/06/2024 11/07/2024 acetaminophen tablet 1,000 mg (TylenoL) 1,000 mg, oral, Every 8 hours, First dose (after last modification) on Wed11/03/24 at 0800 0801 (Given - Provider: Jolanta Sanchez R.N.)1558 (Given - Provider: Jolanta Sanchez R.N.) 0112 (Given - Provider: Sen Sanchez R.N.)0758 (Given - Provider: Laura Montes De Oca R.N.)0800 (Given - Provider: Laura Montes De Oca R.N.)1727 (Given - Provider: Laura Montes De Oca R.N.) 0022 (Given - Provider: Claus Gallardo R.N.)0743 (Given - Provider: Laura Montes De Oca R.N.) amitriptyline-gabapent in-ketamine in Lipoderm 2%-5%-5% cream 1 g 1 g, topical, 2 times daily, First dose on Wed11/05/24 at 2100 2124 (Given - Provider: Sen Sanchez R.N.) 08 (Given - Provider: Laura Montes De Oca R.N.)2049 (Given - Provider: Caro Wu R.N.) 0743 (Given - Provider: Laura Montes De Oca R.N.) apixaban tablet 2.5 mg (Eliquis) 2.5 mg, oral, 2 times daily, First dose (after last modification) on Wed11/01/24 at 2100 0801 (Given - Provider: Jolanta Sanchez R.N.)2123 (Given - Provider: Sen Sanchez R.N.) 0800 (Given - Provider: Laura Montes De Oca R.N.)2049 (Given - Provider: Caro Wu R.N.) 0743 (Given - Provider: Laura Montes De Oca R.N.) cefTRIAXone in dextrose (iso osm) IVPB 2 g (Rocephin) 2 g, intravenous, at 200 mL/hr, Administer over 15 Minutes, Every 24 hours, First dose on Wed11/05/24 at 1700, Drug Monitoring Program: Pharmacist to adjust medication dosing based on indication and drug clearance factors., Indications: Lower UTI, catheter 1716 (New Bag - Provider: Jolanta Sanchez R.N.) 172 (New Bag - Provider: Laura Montes De Oca R.N.) diclofenac sodium 1 % gel 4 g (Voltaren) 4 g, topical, 4 times daily, First dose on Wed10/30/24 at 1700, Do not exceed 32 g per day, over all affected joints. Use dosing card to measure product. 2 g = 2.25 inches, 4 gm = 4.5 inches. Rinse dosing card after use and save for each administration. 0954 (Given - Provider: Jolanta Sanchez R.N.)1243 (Given - Provider: Jolanta Sanchez R.N.)1717 (Given - Provider: Jolanta Sanchez R.N.)2124 (Given - Provider: Davide WatsonNNavdeep) 0802 (Not Given - Provider: Laura Montes De Oca R.N. - Reason: Patient/family refused)1353 (Given - Provider: Laura Montes De Oca R.N.)1739 (Not Given - Provider: Laura Montes De Oca R.N. - Reason: Patient/family refused)2058 (Not Given - Provider: Caro Wu R.NNavdeep - Reason: Patient/family refused) 0744 (Given - Provider: Laura Montes De Oca R.N.)1218 (Given - Provider: Davide WinnNNavdeep) escitalopram tablet 5 mg (Lexapro) 5 mg, oral, Daily, First dose on Wed10/31/24 at 0900 0801 (Given - Provider: Jolanta Sanchez R.N.) 0800 (Given - Provider: Laura Montes De Oca R.N.) 0743 (Given - Provider: Davide SarabiaNNavdeep) furosemide tablet 40 mg (Lasix) (CANCELED) 40 mg, oral, Daily, First dose (after last modification) on Wed11/05/24 at 1615 1716 (Given - Provider: Jolanta Sanchez R.N.) 0800 (Given - Provider: Laura Montes De Oca R.N.) insulin aspart U-100 (Carbohydrate Count) injection 0-20 Units (NovoLOG FlexPen) 0-20 Units, subcutaneous, 3 times daily with meals, First dose (after last modification) on 11/04/24 at 1430, Simple or Complex Ratio: Simple, Carb Ratio - Simple (1 unit per __ grams of carbohydrates): 10 1143 (Given - Provider: Jolanta Sanchez R.N. - Comment: 34gC, late breakfast)1433 (Given - Provider: Jolanta Sanchez R.N. - Comment: Late lunch, 67gC)195 (Given - Provider: Sen Sanchez R.N.) 1016 (Given - Provider: Laura Montes De Oca R.N.)1349 (Given - Provider: Laura Montes De Oca R.N.)1837 (Given - Provider: Laura Montes De Oca R.N.) 0944 (Given - Provider: Laura Montes De Oca R.N.)1218 (Not Given - Provider: Sonali Yi R.N. - Reason: Other - Comment: not eating lunch) insulin aspart U-100 injection 0-13 Units (NovoLOG FlexPen) 0-13 Units, subcutaneous, 3 times daily, First dose (after last modification) on [place] 11/05/24 at 1200, Insulin Scale: Moderate Correction Scale, 140 - 179: 2 units, 180 - 219: 4 units, 220 - 259: 6 units, 260 - 299: 8 units, 300 - 339: 10 units, 340 - 379: 12 units, 380 - 399: 13 units, Greater than 399: Call service writing Insulin orders 1432 (Given - Provider: Jolanta Sanchez R.N. - Comment: BS 219, spacing out from previous dose)1746 (Given - Provider: Jolanta Sanchez R.N. - Comment: BS 185) 0753 (Not Given - Provider: Laura Montes De Oca R.N. - Reason: Order parameters not met)1352 (Given - Provider: Laura Montes De Oca R.N.)1744 (Given - Provider: Laura Montes De Oca R.N.) 0945 (Given - Provider: Laura Montes De Oca R.N.)1217 (Given - Provider: Sonali Yi R.N.) insulin aspart U-100 injection 0-7 Units (NovoLOG FlexPen) (CANCELED) 0-7 Units, subcutaneous, 3 times daily, First dose (after last modification) on [facility] 11/02/24 at 0800, Insulin Scale: Mild Correction Scale, 180 - 219: 2 units, 220 - 259: 3 units, 260 - 299: 4 units, 300 - 339: 5 units, 340 - 379: 6 units, 380 - 399: 7 units, Greater than 399: Call service writing Insulin orders 0802 (Given - Provider: Jolanta Sanchez R.N. - Comment: BS 194) insulin glargine injection 12 Units (CANCELED) 12 Units, subcutaneous, Every morning, First dose (after last modification) on Wed11/02/24 at 0900 0803 (Given - Provider: Jolanta Sanchez R.N.) insulin glargine injection 14 Units 14 Units, subcutaneous, Every morning, First dose (after last modification) on Wed11/06/24 at 0900 0801 (Given - Provider: Laura Montes De Oca R.N.) 09 (Given - Provider: Laura Montes De Oca R.N.) insulin glargine injection 2 Units (COMPLETED) 2 Units, subcutaneous, Once, On Wed11/05/24 at 0945, For 1 dose, Additional dose this morning. 09 (Given - Provider: Jolanta Sanchez R.N.) lidocaine 5 % 1 patch (Lidoderm) 1 patch, transdermal, Administer over 12 Hours, Daily, First dose on Wed10/31/24 at 0900, Remove after 12 hours. 0803 (Medication Applied - Provider: Jolanta Sanchez R.N.)1952 (Medication Removed - Provider: Sen Sanchez R.N.) 08 (Medication Applied - Provider: Laura Montes De Oca R.N.)193 (Medication Removed - Provider: Caro Wu R.N.) 0742 (Medication Applied - Provider: Laura Montes De Oca R.N.)1230 (Due: Medication Removed - Provider: Discharge Provider, Automatic - Comment: Time automatically adjusted from order being discontinued) lubiprostone capsule 24 mcg (Amitiza) 24 mcg, oral, 2 times daily, First dose on Wed10/30/24 at 2100, Swallow whole. Do NOT crush, chew or open capsule. 08 (Given - Provider: Jolanta Sanchez R.N.)2123 (Given - Provider: Sen Sanchez R.N.) 08 (Given - Provider: Laura Montes De Oca R.N.)2050 (Given - Provider: Caro Wu R.N.) 0743 (Given - Provider: Laura Montes De Oca R.N.) melatonin tablet 3 mg 3 mg, oral, Daily at bedtime, First dose on Wed11/03/24 at 2100 2124 (Given - Provider: Sen Sanchez R.N.) 2049 (Given - Provider: Caro Wu R.N.) metoprolol tablet 12.5 mg (Lopressor) 12.5 mg, oral, 2 times daily, First dose on Wed10/30/24 at 2100 0954 (Given - Provider: Jolanta Sanchez R.N. - Comment: Ok to give per provider)2123 (Given - Provider: Sen Sanchez R.N.) 0800 (Given - Provider: Laura Montes De Oca R.N.)2049 (Given - Provider: Caro Wu R.N.) 0745 (Given - Provider: Laura Montes De Oca R.N.) nystatin 100,000 unit/gram powder 1 Application (Nystop) 1 Application, topical, 3 times daily, First dose on Wed11/01/24 at 1400 0954 (Given - Provider: Jolanta Sanchez R.N.)1435 (Given - Provider: Jolanta Sanchez R.N.)2102 (Not Given - Provider: Sen Sanchez R.N. - Reason: Patient/family refused) 0802 (Given - Provider: Laura Montes De Oca R.N.)1353 (Given - Provider: Laura Montes De Oca R.N.)2053 (Given - Provider: Caro Wu R.N.) 0742 (Given - Provider: Laura Montes De Oca R.N.) pantoprazole DR tablet 40 mg (Protonix) 40 mg, oral, Daily before morning meal, First dose on Wed10/31/24 at 0700, pantoprazole 40 mg oral daily was interchanged for omeprazole 20 or 40 mg oral daily Swallow whole. Do NOT crush, chew, or split tablet. 0600 (Given - Provider: Joel Lorenzo R.N.) 0520 (Given - Provider: Sen Sanchez R.N.) 0610 (Given - Provider: Claus Gallardo R.N.) polyethylene glycol powder packet 17 g (Miralax) 17 g, oral, Daily, First dose (after last modification) on Wed11/06/24 at 1330, Dissolve in 240 mLs (8 ounces) of water prior to giving. Avoid mixing with starch-based thickened liquids. 1349 (Given - Provider: Laura Montes De Oca R.N.) 0742 (Given - Provider: Laura Montes De Oca R.N.) pregabalin capsule 25 mg (Lyrica) 25 mg, oral, Daily, First dose on Wed11/03/24 at 1145 0801 (Given - Provider: Jolanta Sanchez R.N.) 0800 (Given - Provider: Laura Montes De Oca R.N.) 0743 (Given - Provider: Laura Montes De Oca R.N.) pregabalin capsule 50 mg (Lyrica) 50 mg, oral, Daily at bedtime, First dose (after last modification) on Wed11/03/24 at 2100 2124 (Given - Provider: Sen Sanchez R.N.) 2049 (Given - Provider: Caro Wu R.N.) sennosides-docusate sodium 8.6-50 mg per tablet 2 tablet (Senokot-S) 2 tablet, oral, 2 times daily, First dose (after last modification) on Wed10/31/24 at 2100 0801 (Given - Provider: Jolanta Sanchez R.N.)2103 (Not Given - Provider: Sen Sanchez R.N. - Reason: Patient/family refused) 08 (Given - Provider: Laura Montes De Oca R.N.)205 (Not Given - Provider: Caro Wu R.N. - Reason: Patient/family refused) 0744 (Given - Provider: Laura Montes De Oca R.N.) Continuous Medication Order 11/05/2024 11/06/2024 11/07/2024 Lactated Ringer's () 250 mL/hr, intravenous, Continuous, Starting on Wed11/06/24 at 0715, For 2 hours 0751 (New Bag - Provider: Laura Montes De Oca R.N.)0950 (Stopped - Provider: Ana Thomas R.N.) PRN Medication Order 11/05/2024 11/06/2024 11/07/2024 bisacodyL suppository 10 mg (Dulcolax) 10 mg, rectal, Daily PRN, constipation, Starting on Wed11/01/24 at 1145 dextrose 40% gel 15 g of dextrose (Glutose) 15 g of dextrose, oral, As needed, low blood sugar, For glucose 54-70 mg/dL, Starting on Wed11/01/24 at 1948, If patient is conscious and able to swallow safely and has a fuctioning gastrointestinal tract or on Acarbose (Precose ) or Miglitol (Glyset ). May use tablets or gel. 1 g dextrose 40% gel = 0.4 g of dextrose (Example: 37.5 g dextrose 40% gel = 15 g of dextrose). dextrose 50 % injection 12.5 g 12.5 g, intravenous, As needed, low blood sugar, For glucose 54-70 mg/dL, Starting on Wed11/01/24 at 1948, If the patient has intravenous access available, is not able to take oral feeding safely, does not have a functioning gastrointestinal tract or feeding tube, or is NPO, administer D50W intravenously. dextrose 50 % injection 25 g 25 g, intravenous, As needed, low blood sugar, For glucose less than 54 mg/dL, Starting on Wed11/01/24 at 1948, If intravenous access is available, administer D50W intravenously glucose chewable tablet 16 g 16 g, oral, As needed, low blood sugar, For glucose 54-70 mg/dL, Starting on Wed11/01/24 at 1948, If patient is conscious and able to swallow safely and has a functioning gastrointestinal tract or on Acarbose (Precose ) or Miglitol (Glyset ). Administer 4 tablets to total 16 grams. May use tablets or gel. HYDROmorphone tablet 1 mg (Dilaudid) (CANCELED) 1 mg, oral, Every 4 hours PRN, moderate pain or score 4-6 of 10, severe pain or score 7-10 of 10, Starting on Wed11/05/24 at 0814, Does patient have renal impairment, frailty, or advanced age (avoid morphine) and unable to take oxycodone? Yes, Did the patient fail other oral opioids during hospitalization? Yes, Does the patient have documented allergies to oxycodone and/or morphine? No, Is the patient on hydromorphone chronically for pain? No 1248 (Given - Provider: Jolanta Sanchez RSugar) oxyCODONE IR tablet 5 mg (Roxicodone) (CANCELED) 5 mg, oral, Every 4 hours PRN, moderate pain or score 4-6 of 10, severe pain or score 7-10 of 10, Starting on Wed11/03/24 at 1020, Indications: Chronic Pain/Nonacute Pain 0810 (Given - Provider: Edy Tejada R.N.) oxyCODONE IR tablet 5 mg (Roxicodone) 5 mg, oral, Every 4 hours PRN, moderate pain or score 4-6 of 10, severe pain or score 7-10 of 10, Starting on Wed11/05/24 at 1517 1716 (Given - Provider: Jolanta Sanchez RSugar)2124 (Given - Provider: Sen Sanchez R.N.) 0112 (Given - Provider: Sen Sanchez R.N.)0520 (Given - Provider: Sen Sanchez R.N.)2050 (Given - Provider: Caro Wu RNavdeepNNavdeep) polyethylene glycol powder packet 17 g (Miralax) (CANCELED) 17 g, oral, Daily PRN, constipation, Starting on Wed11/05/24 at 0700, Dissolve in 240 mLs (8 ounces) of water prior to giving. Avoid mixing with starch-based thickened liquids. 0801 (Given - Provider: Jolanta Sanchez R.N.) documented in this encounter Care Teams Child Development Consultant Relationship Specialty Start Date End Date Elsewhere, Pcp PCP - General Internal Medicine 10/30/24 11/06/24 documented as of this encounter
--- OUTSIDE RECORDS SUMMARY | 2024-12-22 16:02 | XMS_ITS | Encounter Summary ---
Author Organization [facility] Address Formerly [facility] [place] [address] Care Team Providers Care Product Manager Financial Services Name Role Phone Chu Cruz PA-C Primary Care Provider Minna Chawla RN Unavailable Unavailable Minna Chawla RN Unavailable Unavailable Chu Cruz PA-C Unavailable [phone] Luis Miguel Woodson MD Unavailable Unavailable Daisy Mejia GAS JOCKEY Unavailable [phone] Aruna Mart Unavailable [phone] Chris Ricketts DPM Unavailable Chris Ricketts DPM Unavailable [phone] Clem Maynard MD Unavailable [phone] Clem Maynard MD Unavailable [phone] Encounter Details Date Type Department Care Team (Late st Contact Info) Description 03/03/2022 [facility] [address] [place] [phone] Raphael Hi, MIKE Social History Tobacco Use Types Packs/Day Years Used Date Smoking Tobacco: Former Smokeless Tobacco: Never Comments:only 6 months use Alcohol Use Standard Drinks/Week Comments Yes 0 (1 standard drink = 0.6 oz pur e alcohol) rarely PHQ-2 Answer Date Recorded PHQ-2 Score 2 08/15/2021 Comments No Sex and Gender Information Value Date Recorded Sex Assigned at Female 01/14/2021 7:41 PM STAFF DEVELOPMENT COORDINATOR RN Legal Sex Female 6:11 PM CDT Gender Identity Female 01/14/2021 7:41 PM STAFF DEVELOPMENT COORDINATOR RN Sexual Orientation Straight 01/14/2021 7: 41 PM STAFF DEVELOPMENT COORDINATOR RN COVID-19 Exposure Response Date Recorded In the [...] documented as of this encounter Care Teams Product Manager Financial Services Relationship Specialty Start Date End Date Chu Cruz PA-C [address] [address] PCP - General Physician Shoe Repair Cobbler 07/07/17 Minna Chawla RN [address] [address] Physician Industrial Diabetes Education 06/30/18 Minna Chawla RN [address] [address] Physician Industrial Diabetes Education 06/30/18 Chu Cruz PA-C [address] [address] Assigned PCP 11/14/17 Luis Miguel Woodson MD Assigned Heart and Vascular Provider 08/30/20 06/26/22 Daisy Mejia NP [address] [place] [id number] Assigned Neuroscience Provider 09/07/21 03/05/23 Aruna Mart [address] [facility] [place], [place] [address] Physician Industrial 01/16/22 Chris Ricketts DPM [address] [facility] [place] [address] Assigned Musculoskeletal Provider 01/11/22 12/11/22 Chris Ricketts DPM [address] [facility] [place] [address] Assigned Surgical Provider 12/12/22 02/28/24 Clem Maynard MD [address] [place] [phone] Cardiovascular Disease 01/07/23 Clem Maynard MD [address] [place] [phone] Assigned Heart and Vascular Provider 01/16/23 07/30/24 documented as of this encounter
--- OUTSIDE RECORDS SUMMARY | 2024-12-22 16:02 | XMS_ITS | Encounter Summary ---
Author Organization [facility] Address [address] [place] [address] Care Team Providers Care Treating And Pumping Supervisor Name Role Phone Maggie Gallardo P.A.-C. Primary Care Provid er Encounter Details Date Type Department Care Team (Late st Contact Info) Description 11/02/2024 Orders Only Department of Orthopedic Surgery in [place], [place] [address] [place] [phone] Cindy Rodriguez, BUCK, P.A.-C. [address] [place] [address] Fracture Lumbosacral Spine And Pelvis Closed Initial (HCC) (Primary Dx) Social History Tobacco Use Types Packs/Day Years Used Date Smoking Tobacco: Never Smokeless Tobacco: Never Alcohol Use Standard Drinks/Week Comments Not Currently 0 (1 standard drink = 0.6 oz pur e alcohol) [facility] Utilities Answer Date Recorded In the past 12 months has e [employer], gas, oil, or water Droplet threatened to shut off services in your [...] your living situation today? I have a [facility] place to live 10/30/2024 Comments Unknown Sex and Gender Information Value Date Recorded Sex Assigned at Not on file Legal Sex Female 6:45 PM CDT Gender Identity Not on file Sexual Orientation Not on file documented as of this encounter Plan of Treatment Not on file documented as of this encounter Visit Diagnoses Diagnosis Fracture Lumbosacral Spine And Pelvis Closed Initial (HCC)- Primary documented in this encounter Care Teams Treating And Pumping Supervisor Relationship Specialty Start Date End Date Maggie Gallardo P.A.-C. [address] [place] [phone] PCP - General Family Medicine 11/14/24 documented as of this encounter
--- OUTSIDE RECORDS SUMMARY | 2024-12-22 16:02 | XMS_ITS | Encounter Summary ---
Author Organization [facility] Address [address] [place] [address] Care Team Providers Care Practice Consultant Name Role Phone Leti Traylor MD Primary Care Provider [phone] Chu Cruz PA-C Primary Care Provider Minna Chawla RN Unavailable Unavailable Minna Chawla RN Unavailable Unavailable Chu Cruz PA-C Unavailable [phone] Chu Cruz PA-C Unavailable [phone] Lisa Riggs RN Unavailable [phone] Dario Potter MD Unavailable [phone] Luis Miguel Woodson MD Unavailable Unavailable Matheus Medina MD Unavailable [phone] Daisy Mejia NP Unavailable Aruna Mart Unavailable [phone] Chris Ricketts DPM Unavailable [phone] Chris Ricketts DPM Unavailable [phone] Clem Maynard MD Unavailable [phone] Clem Maynard MD Unavailable [phone] Reason for Visit * Reason Comments Medication Refill Encounter Details Date Type Department Care Team ([facility] st Contact Info) Description 11/18/2016 Refill Health [address] [phone] Palmira Gil MD [address] [place] [address] Medication Refill Social History Tobacco Use Types Packs/Day Years Used Date Smoking Tobacco: Former Alcohol Use Standard Drinks/Week Comments Yes 0 (1 standard drink = 0.6 oz pur e alcohol) rarely Comments No Sex and Gender Information Value Date Recorded Sex Assigned at Female 01/14/2021 7:41 PM ELECT EQUIP MAINT ENG Legal Sex Female 6:11 PM CDT Gender Identity Female 01/14/2021 7:41 PM ELECT EQUIP MAINT ENG Sexual Orientation Straight 01/14/2021 7: 41 PM ELECT EQUIP MAINT ENG documented as of this encounter Miscellaneous Notes * Telephone Encounter - Yaya Elizalde RN - 11/19/2016 9:34 AM CST Pt's PCP, Dr. Traylor is at [facility], routing to PCP. Please advise. Yaya Elizalde RN, BSN T EQUIP MAINT ENG * Telephone Encounter - Kayla Sandoval RN - 11/19/2016 7:15 AM ELECT EQUIP MAINT ENG Lisinopril Last Written Prescription Date: 10/31/16 Last Fill Quantity: 30, # refills: 0 Last Office Visit with [facility], [facility] or [facility] prescribing provider: 11/12/16 Next 5 appointments (look out 90 days) Dec 07, 2016 11:30 AM Return Visit with Dennys Acosta MD [facility] ([address] [phone] POTASSIUM Date Value Ref Range Status 11/12/2016 4.6 3.4 - 5.3 mmol/L Final CREATININE Date Value Ref Range Status 11/12/2016 1.48* 0.52 - 1.04 mg/dL Final BP Readings from Last 3 Encounters: 11/12/16 130/80 10/31/16 127/88 10/26/16 102/70 T EQUIP MAINT ENG documented in this encounter Plan of Treatment Not on file documented as of this encounter Visit Diagnoses Diagnosis Heart failure with reduced ejection fraction, NYHA class II (H)- Primary documented in this encounter Additional Health Concerns Infection Onset Date Last Indicated Resolved Time Rule Out COVID-19 09/26/2020 09/26/2020 09/27/2020 5:31 PM ELECT EQUIP MAINT ENG Rule Out COVID-19 05/28/2022 05/28/2022 05/28/2022 8:56 PM CDT Rule Out COVID-19 07/03/2022 07/03/2022 07/03/2022 6:55 PM CDT Assessment Noted Time PHQ-9 Depression Total Score: 3 11/13/19 7:08 AM ELECT EQUIP MAINT ENG documented as of this encounter Care Teams Practice Consultant Relationship Specialty Start Date End Date Leti Traylor MD PCP - General Family Practice 07/20/16 06/02/17 Chu Cruz PA-C [address] [address] PCP - General Physician Administrative Intern 07/07/17 Chu Cruz PA-C [address] [address] PCP - Assigned PCP 11/14/17 01/10/19 Minna Chawla RN [address] [address] Safe And Vault Service Mechanic Diabetes Education 06/30/18 Minna Chawla RN [address] [address] Safe And Vault Service Mechanic Diabetes Education 06/30/18 Chu Cruz PA-C [address] [place] [address] [address] [place] [address] Assigned PCP 11/14/17 Lisa Riggs RN Clinic Board Of Education Secretary Primary Care - CC 06/14/2006/16 Dario Potter MD [address] [place], [place] [address] [address] Assigned Musculoskeletal Provider 08/30/20 01/10/22 Luis Miguel Woodson MD Assigned Heart and Vascular Provider 08/30/20 06/26/22 Matheus Medina MD [address] [place] [address] [place] [address] Assigned Surgical Provider 08/30/20 11/30/20 Daisy Mejia PROJECT PRODUCTION ENGINEER [address] [facility] [address] [place], [place] [address] Assigned Neuroscience Provider 09/07/21 03/05/23 Aruna Mart [address] [place] [address], [place] [address] [employer] And Vault Service Mechanic 01/16/22 Chris Ricketts DPM [address] [place] [address] [place] [address] Assigned Musculoskeletal Provider 01/11/22 12/11/22 Chris Ricketts DPM [address] [place] [address] [place] [address] Assigned Surgical Provider 12/12/22 02/28/24 Clem Maynard MD [address] [place] [phone] Cardiovascular Disease 01/07/23 Clem Maynard MD [address] [place] [phone] Assigned Heart and Vascular Provider 01/16/23 07/30/24 documented as of this encounter
[2024-12-22] MEDS: KETOROLAC 15 MG/ML inj IVP (16:38)
[2024-12-22 17:49] LABS: Basophils Absolute Auto 0.04 K/uL (0.00-0.30); Basophils Percent Auto 0.4 % (0.0-3.0); Eosinophils Absolute Auto 0.08 K/uL (0.00-0.50); Eosinophils Percent Auto 0.8 % (0.0-7.0); Hematocrit 41.3 % (33.0-51.0); Hemoglobin* 13.4 gm/dL (12.0-16.0); Immature Granulocytes Abs Auto 0.08 K/uL (0.00-0.30); Immature Granulocytes Pct Auto 0.8 %; Lymphocytes Percent Auto 13.6 % (20-44); Mean Corpuscular HGB Conc 32 gm/dL (32-36); Mean Corpuscular Hemoglobin 29 pg (26-34); Mean Corpuscular Volume 88 fL (80-100); Monocytes Percent Auto 7.7 % (0.0-11.0); Neutrophils Percent Auto 76.7 % (42.0-72.0); Platelet Count* 209 K/uL (140-440); RDW Coefficient of Variation % 13.2 % (11.5-15.5); Red Blood Count 4.69 m/uL (4.00-5.20); White Blood Count* 10.47 K/uL (4.50-11.00)
[2024-12-22 17:58] LABS: Slide Review Reflex No
[2024-12-22 18:12] LABS: Albumin* 3.7 g/dL (3.3-5.0); Chloride* 104 mmol/L (96-114)
[2024-12-22 18:13] LABS: Sodium* 141 mmol/L (135-149)
[2024-12-22 18:14] LABS: Partial Thromboplastin Time* 32 Seconds (23-33)
[2024-12-22 18:15] LABS: Creatinine* 1.6 mg/dL (0.5-1.5); Est. Creatinine Clearance* 20.99; Estimated Glomerular Filt Rate 31 ml/min
[2024-12-22 18:16] LABS: Alanine Aminotransferase* 17 U/L (4-35); Alkaline Phosphatase* 213 U/L (40-150); Anion Gap 12 mEq/L (7-15); Aspartate Amino Transferase* 22 U/L (12-35); Bilirubin Direct* 0.3 mg/dL (0.0-0.5); Bilirubin Total* 0.4 mg/dL (0.1-1.5); Blood Urea Nitrogen* 47 mg/dL (7-30); Calcium* 9.6 mg/dL (8.4-10.6); Carbon Dioxide* 25 mmol/L (20-32); Glucose* 58 mg/dL (60-115); Total Protein* 6.8 g/dL (6.0-8.3)
[2024-12-22 18:18] LABS: C Reactive Protein* 2.1 mg/dL (0.5-1.0)
--- NOTE | 2024-12-22 20:14 | PM.IMHP1 ---
Hospitalist- H&P: HPI History of Present Illness Date Seen: 12/22/24 Chief complaint: Back pain at 100 today Narrative: Hayde Fong is a 89 year old will who lives alone in her own apartment in [place], [place]. She presents to our emergency department via EMS for assessment of acute on chronic back pain. On 10/30/2024 patient fell while walking in her apartment without her walker. She states her legs gave out. She was assessed and found to have an acute sacral fracture and treated for the same at [place], [place]. She was in the hospital for about 3 weeks. Was seen by various specialists. Discharge to [facility] for transitional care services where she remained for another 3 weeks. Was doing well. Was ambulating independently with her walker. Was then discharged to her new apartment. Ever since she has been back in her apartment she states things have been ?going downhill.? She lives alone in her apartment. Her daughter has been helping her with her cares including medication dispensing. Her daughter has been concerned about the patient utilizing too much oxycodone and has thus been the only 1 dispense in the oxycodone, according to the patient. Patient states when she takes her oxycodone she does well. When she does not takes her oxycodone the pain is severe. At rest she rates her pain as 6/10. With any movement of her right leg or attempts at weight-bearing or changing position her pain flares up to 10/10. Patient has had chronic back pain for number of years. She had a Medtronic neural stimulator implant roughly 7 years ago. She believes her implant has recently been malfunctioning. Her daughter reportedly obtain a new part for this implant and it has not made it any worse or better. Historically had fair results from use of the neurostimulator implant. In the emergency department the staff were able to reach the [employer]tr[employer] printed circuit boards contact printer who advise that they turn off the implant given the uncertainty of its function. No recent trauma, injury, travel. No fevers, rigors, diaphoresis. No contact with others who are ill. Mostly lying around in her home because efforts to move or bear any weight cause increased pain. Denies change in bowel or bladder function. Denies change or loss in sensory awareness. Review of Systems Status of ROS: Reports: 6 or more systems reviewed and unremarkable except as noted in History and below Narrative: Denies cardiac, pulmonary, gastrointestinal, or genitourinary complaints or concerns. Notes chronic pain including arthralgias in knees and shoulders. Most prominent complaint of pain is down her right leg pain. [facility] Medical History (Updated 12/22/24 @ 20:39 by Juan Miguel Tatum MD) Closed L4 vertebral fracture ?S32.049A - Unspecified fracture of fourth lumbar vertebra, initial encounter for closed fracture (ICD-10) Bilateral sacral insufficiency fracture ?M84.48XA - Pathological fracture, other site, initial encounter for fracture (ICD-10) Cellulitis ?L03.90 - Cellulitis, unspecified (ICD-10) Type 2 diabetes mellitus ?E11.9 - Type 2 diabetes mellitus without complications (ICD-10) Hard of hearing ?H91.90 - Unspecified hearing loss, unspecified ear (ICD-10) Atrial fibrillation ?I48.91 - Unspecified atrial fibrillation (ICD-10) CHF (congestive heart failure) ?I50.9 - Heart failure, unspecified (ICD-10) Depression ?F32.A - Depression, unspecified (ICD-10) Constipation ?K59.00 - Constipation, unspecified (ICD-10) HTN (hypertension) ?I10 - Essential (primary) hypertension (ICD-10) Anxiety ?F41.9 - Anxiety disorder, unspecified (ICD-10) Osteoarthritis ?M19.90 - Unspecified osteoarthritis, unspecified site (ICD-10) Neuropathy ?G62.9 - Polyneuropathy, unspecified (ICD-10) Nonischemic cardiomyopathy ?I42.8 - Other cardiomyopathies (ICD-10) Chronic renal insufficiency ?N18.9 - Chronic kidney disease, unspecified (ICD-10) Restless leg syndrome ?G25.81 - Restless legs syndrome (ICD-10) Recent urinary tract infection ?Z87.440 - Personal history of urinary (tract) infections (ICD-10) Left shoulder pain ?M25.512 - Pain in left shoulder (ICD-10) Nonadherence to medication ?Z91.148 - Patient's other noncompliance with medication regimen for other reason (ICD-10) Skin yeast infection ?B37.2 - Candidiasis of skin and nail (ICD-10) Fatigue ?R53.83 - Other fatigue (ICD-10) Cardiac pacemaker ?Z95.0 - Presence of cardiac pacemaker (ICD-10) Hx of sick sinus syndrome ?Z86.79 - Personal history of other diseases of the circulatory system (ICD-10) Stage 3a chronic kidney disease ?N18.31 - Chronic kidney disease, stage 3a (ICD-10) Candidal intertrigo ?B37.2 - Candidiasis of skin and nail (ICD-10) Pressure injury of heel, stage 1 ?L89.601 - Pressure ulcer of unspecified heel, stage 1 (ICD-10) GERD (gastroesophageal reflux disease) ?K21.9 - Gastro-esophageal reflux disease without esophagitis (ICD-10) Sacral fracture ?S32.10XA - Unspecified fracture of sacrum, initial encounter for closed fracture (ICD-10) Dizziness ?R42 - Dizziness and giddiness (ICD-10) Pressure sore ?L89.90 - Pressure ulcer of unspecified site, unspecified stage (ICD-10) Health care directive on file ?Z78.9 - Other specified health status (ICD-10) Sick sinus syndrome ?I49.5 - Sick sinus syndrome (ICD-10) Surgical History History of amputation of toe ?Z89.429 - Acquired absence of other toe(s), unspecified side (ICD-10) History of appendectomy ?Z90.49 - Acquired absence of other specified parts of digestive tract (ICD-10) History of hysterectomy ?Z90.710 - Acquired absence of both cervix and uterus (ICD-10) Spinal cord stimulator status ?Z96.89 - Presence of other specified functional implants (ICD-10) History of carpal tunnel release ?Z98.890 - Other specified postprocedural states (ICD-10) History of permanent cardiac pacemaker placement ?Z95.0 - Presence of cardiac pacemaker (ICD-10) History of knee replacement ?Z96.659 - Presence of unspecified artificial knee joint (ICD-10) Family History Father Heart disease Mother Heart disease Breast cancer Son Colon cancer, Onset Age: 47 Social History Narrative: The patient is . 2 children. Limited exercise. Non-smoker. Alcohol rare. No illicit drug use. What is your current living situation?: I presently have a place to live Problems where you live: water leaks Problems where you live details: N/A In the past 12 months, utilities in danger of being shut off: no In past 12 months, lack of transportation kept you from medical appts, meetings, work, or getting things needed for daily living: no In the past 12 mos, have been you worried that your food would run out before you had money to buy more?: never true In the past 12 mos, the food you bought just didn't last and you didn't have money to buy more?: never true Highest level of school completed/degree received: some college, no degree Smoking Status: Never smoker Do you use any of these nicotine containing products: None Second hand tobacco smoke exposure: No How often do you have a drink containing alcohol: never How often do you have six or more drinks on one occasion: Never AUDIT-C Alcohol total score: 0 Non-prescribed substance use: denies use How often does anyone, including family, friends and others, physically hurt you: never How often does anyone, including family, friends and others, insult or talk down to you: rarely How often does anyone, including family, friends and others, threaten you with harm: never How often does anyone, including family, friends and others, scream or curse at you: never service: No Health Related Social Needs: Inadequate housing (Z59.1) and Other personal risk factors, not elsewhere classified (Z91.89) Meds Home Medications and Allergies Home Medications ?Medication ?Instructions ?Recorded ?Confirmed ?Type lubiprostone 24 mcg capsule 24 mcg PO BID 10/26/23 12/22/24 History metoprolol tartrate 25 mg tablet 12.5 mg PO BID 10/26/23 12/22/24 History pen needle, diabetic 32 gauge x #100 ea 10/26/23 12/14/24 History 1/4 (BD Ultra-Fine Micro Pen Needle) sennosides 8.6 mg-docusate sodium 1 tab PO BID 10/26/23 12/22/24 History 50 mg tablet (Senna Plus) pregabalin 50 mg capsule (Lyrica) 50 mg PO ONCE 03/02/24 12/22/24 History dapagliflozin propanediol 5 mg 5 mg PO QAM 11/23/24 12/22/24 History tablet diclofenac sodium 1 % topical gel 2 g topical QID 11/23/24 12/22/24 History insulin aspart U-100 100 unit/mL 6 unit subcut TID 11/23/24 12/22/24 History subcutaneous solution (Novolog U-100 Insulin aspart) insulin glargine 100 unit/mL (3 14 unit subcut QDAY 11/23/24 12/22/24 History mL) subcutaneous pen (Lantus Solostar U-100 Insulin) Allergies Allergy/AdvReac Type Severity Reaction Status Date / Time diatrizoate meglumine Allergy Hives Verified 12/22/24 15:04 phenobarbital Allergy Verified 12/22/24 15:04 propoxyphene (From Darvon) Allergy Verified 12/22/24 15:04 contrast AdvReac Unknown Uncoded 12/14/24 14:24 Exam Narrative: Exam Narrative: I evaluated the patient in her hospital room. She is laying with head of bed elevated about 15? and watching television. She appears comfortable. The 1st words out of her mouth are that she is in excruciating pain and she rates it as 10/10. Her voice and demeanor are calm. No facial or bodily indication of pain. No tears. No sweats. Able to move about in her bed including her right foot and leg. Hard of hearing but able to engage in conversation when I speak loudly enough. Vision is adequate. External auditory canals are clear. Midline nasal septum. Dry buccal mucosa. Edentulous. Conjugate gaze. No icterus. Neck is supple. Midline trachea. No head neck lymphadenopathy. Lungs are clear to auscultation without wheezing, rhonchi, or rales. Chest wall excursions are full. No CVA tenderness. Heart tones with chaotic rhythm, normal S1-S2, without murmur, gallop, or rub. PMI is not laterally displaced. Abdomen with active bowel sounds, soft, nontender. Strength is full in upper and lower extremities. Deep tendon reflexes are symmetric in upper and lower extremities. Decreased reflexes in the ankles bilaterally. Able to eat and drink without difficulties. No edema. Partial amputation right hallux. Const: Vital Signs, click to edit/add: Vital Signs - 24 hr 12/22/24 14:56 12/22/24 15:58 12/22/24 16:00 Temperature 98.4 F Pulse Rate 60 60 Pulse Rate [Pulse Oximeter] 82 Respiratory Rate 18 16 Blood Pressure Blood Pressure [Le ft Radial Artery] Blood Pressure [Ri ght Upper Arm] 125/107 H Pulse Oximetry 98 92 95 Oxygen Delivery Me thod Room Air 12/22/24 16:01 12/22/24 16:15 12/22/24 16:30 Temperature Pulse Rate 60 60 60 Pulse Rate [Pulse Oximeter] Respiratory Rate Blood Pressure 124/52 L Blood Pressure [Le ft Radial Artery] Blood Pressure [Ri ght Upper Arm] Pulse Oximetry 95 93 93 Oxygen Delivery Me thod 12/22/24 16:32 12/22/24 16:33 12/22/24 19:59 Temperature 97.6 F Pulse Rate 60 60 Pulse Rate [Pulse Oximeter] Respiratory Rate 16 Blood Pressure 133/61 Blood Pressure [Le ft Radial Artery] 161/75 H Blood Pressure [Ri ght Upper Arm] Pulse Oximetry 90 89 95 Oxygen Delivery Me thod Room Air Hospitalist - H&P: Result Labs Labs: Short CBC 12/22/24 Range/Units 17:20 WBC 10.47 (4.50-11.00) K/uL Hgb 13.4 (12.0-16.0) gm/dL Hct 41.3 (33.0-51.0) % Plt Count 209 (140-440) K/uL BMP 12/22/24 17:20 Sodium 141 Potassium 4.0 Chloride 104 Carbon Dioxide 25 BUN 47 H Creatinine 1.6 H Glucose 58 L Calcium 9.6 Liver Function 12/22/24 Range/Units 17:20 Total Bilirubin 0.4 (0.1-1.5) mg/dL Direct Bilirubin 0.3 (0.0-0.5) mg/dL AST 22 (12-35) U/L ALT 17 (4-35) U/L Alkaline Phosphatase 213 H (40-150) U/L Albumin 3.7 (3.3-5.0) g/dL Imaging CT scan - pelvis: Radiologist's impression: 1. Acute to subacute fractures including the bilateral hemisacrum, left L5 transverse process, left obturator ring, and probably the right L5 transverse process as further described above. 2. Mild focal bandlike bladder wall thickening extending from the bladder dome to the lateral hutchison of the bladder which is of unclear etiology, but possibly due to decompression. 3. Please see separately dictated report for findings in the lumbar spine. CT scan - lumbar spine: Radiologist's impression: 1. Recent (acute/subacute) L4 compression fracture and bilateral sacral ala fractures. 2. Chronic-appearing compression deformities at T12, L1, and L3, with cement augmentation at T12 and L3. 3. Spondylosis and spondylolisthesis as detailed, with suspected moderate to severe spinal canal stenosis at L4-5. Assessment and Plan Assessment and plan (1) Uncontrolled pain: Problem comment: -multiple possible etiologies including anatomical, psychiatric Status: Acute (2) Chronic back pain: Problem comment: -Medtronic implanted neurostimulator about 7 years ago, concern about possible malfunction, currently turned off, will need future interrogation to determine if it is functional or not Status: Acute (3) Bilateral sacral insufficiency fracture: Problem comment: - -CT scan of lumbar spine 12/22/2024: 1. Recent (acute/subacute) L4 compression fracture and bilateral sacral ala fractures. 2. Chronic-appearing compression deformities at T12, L1, and L3, with cement augmentation at T12 and L3. 3. Spondylosis and spondylolisthesis as detailed, with suspected moderate to severe spinal canal stenosis at L4-5. Status: Acute (4) Closed L4 vertebral fracture: Problem comment: -10/30/2024 -CT scan of lumbar spine 12/22/2024: 1. Recent (acute/subacute) L4 compression fracture and bilateral sacral ala fractures. 2. Chronic-appearing compression deformities at T12, L1, and L3, with cement augmentation at T12 and L3. 3. Spondylosis and spondylolisthesis as detailed, with suspected moderate to severe spinal canal stenosis at L4-5. Status: Acute (5) Spinal stenosis: Problem comment: -CT scan of lumbar spine 12/22/2024: 1. Recent (acute/subacute) L4 compression fracture and bilateral sacral ala fractures. 2. Chronic-appearing compression deformities at T12, L1, and L3, with cement augmentation at T12 and L3. 3. Spondylosis and spondylolisthesis as detailed, with suspected moderate to severe spinal canal stenosis at L4-5. Status: Acute Plan 1. Patient is admitted to observation. Unable to achieve pain management in-home under current situation. Warrants additional assessment in hospital to determine her needs and safety status. 2. Kimberly scheduled acetaminophen and p.r.n. oxycodone. Patient claims if she would just get oxycodone at bedtime she thinks she will do well. 3. Unclear about patient's history of opioid use. Need time to sort out her response to current interventions. 4. Kimberly other supportive efforts including diclofenac gel to joints, restart her SSRI for anxiety and depression. 5. PT and OT to assist with assessment and recommendations. 6. Designates her daughter, Jasmyne, as individual to make healthcare decisions on her behalf if she is unable to do so. Requests DNR DNI resuscitation status. 7. player services representative to assist with discharge disposition planning. Patient is agreeable to consider transitional care services if needed. Ultimately her desires to be able to move back to her home. Total Time Spent Total Time Spent: 70 minutes
[2024-12-22] MEDS: ACETAMINOPHEN 325 MG TABLET 650 MG PO (20:53)
[2024-12-22] MEDS: APIXABAN 5 MG TABLET 2.5 MG PO (20:53)
[2024-12-22] MEDS: METOPROLOL TARTRATE 25 MG TABLET 12.5 MG PO (20:54)
[2024-12-22] MEDS: SENNOSIDES/DOCUSATE TABLET 1 TAB PO (20:54)
[2024-12-22] MEDS: OMEPRAZOLE 20 MG CAPSULE DR 40 MG PO (20:55)
[2024-12-22] MEDS: SODIUM CHLORIDE 0.9 % (FLUSH) 10 ML SYRINGE 5 ML IVF (20:56)
[2024-12-22] MEDS: OXYCODONE 5 MG TABLET PO (20:57)
[2024-12-23] VITALS (7 sets, daily range): BP systolic 115–144; BP diastolic 53–78; PULSE 60–68; RESP 16; TEMP 36.3–36.8; O2SAT 91–93
--- NOTE | 2024-12-23 05:39 | PC.NURSE ---
Shift note: Pt was brought to the floor at the beginning of the shift. She arrived by bed and reported chronic lower back pain. Pt [place] wit [place] [facility] She has been doing well on RA. Alert and oriented, vitally stable. Takes pill whole with water. Pain level rated at 9/10 at 2100. Oxycodone 5mg given and was effective. Pt had adequate sleep.
[2024-12-23 07:15] LABS: Lactate* 1.5 mmol/L (0.5-1.9)
[2024-12-23 07:35] LABS: Albumin* 3.4 g/dL (3.3-5.0); Chloride* 105 mmol/L (96-114); Potassium* 4.8 mmol/L (3.6-5.1); Sodium* 139 mmol/L (135-149)
[2024-12-23 07:38] LABS: Creatinine* 1.6 mg/dL (0.5-1.5); Est. Creatinine Clearance* 20.99; Estimated Glomerular Filt Rate 31 ml/min
[2024-12-23 07:39] LABS: Anion Gap 11 mEq/L (7-15); Blood Urea Nitrogen* 53 mg/dL (7-30); Calcium* 9.4 mg/dL (8.4-10.6); Carbon Dioxide* 23 mmol/L (20-32); Glucose* 197 mg/dL (60-115)
[2024-12-23] MEDS: ACETAMINOPHEN 325 MG TABLET 650 MG PO ×4 (09:52→21:27)
[2024-12-23] MEDS: OMEPRAZOLE 20 MG CAPSULE DR 40 MG PO ×2 (09:53→21:25)
[2024-12-23] MEDS: ESCITALOPRAM 10 MG TABLET 5 MG PO (09:53)
[2024-12-23] MEDS: METOPROLOL TARTRATE 25 MG TABLET 12.5 MG PO ×2 (09:53→21:26)
[2024-12-23] MEDS: APIXABAN 5 MG TABLET 2.5 MG PO ×2 (09:53→21:25)
[2024-12-23] MEDS: OXYCODONE 5 MG TABLET PO ×2 (09:54→21:24)
[2024-12-23] MEDS: SENNOSIDES/DOCUSATE TABLET 1 TAB PO ×2 (09:54→21:27)
[2024-12-23] MEDS: INSULIN ASPART 100 UNIT/ML 6 UNIT SUBCUT ×3 (09:55→18:11)
[2024-12-23] MEDS: INSULIN GLARGINE,HUM.REC.ANLOG 100 UNIT/ML INSULN.PEN 14 UNIT SUBCUT (09:55)
[2024-12-23] MEDS: INSULIN ASPART 100 UNIT/ML SUBCUT ×2 (10:13→14:54)
[2024-12-23] MEDS: SODIUM CHLORIDE 0.9 % (FLUSH) 10 ML SYRINGE 5 ML IVF ×2 (10:14→21:27)
--- NOTE | 2024-12-23 10:44 | PM.IMPN1 ---
Progress Note: A&P Assessment and plan (1) Uncontrolled pain: Problem details: -multiple possible etiologies including anatomical, psychiatric - no improvement of pain overnight. OT recommends SNF with therapies at discharge. SW for disposition. No SNF bed available this weekend. No safe discharge at present. Continue PT and OT. Continue prn pain medicine. Status: Acute (2) Chronic back pain: Problem details: -Medtronic implanted neurostimulator about 7 years ago, concern about possible malfunction, currently turned off, will need future interrogation to determine if it is functional or not Status: Acute (3) Bilateral sacral insufficiency fracture: Problem details: - -CT scan of lumbar spine 12/22/2024: 1. Recent (acute/subacute) L4 compression fracture and bilateral sacral ala fractures. 2. Chronic-appearing compression deformities at T12, L1, and L3, with cement augmentation at T12 and L3. 3. Spondylosis and spondylolisthesis as detailed, with suspected moderate to severe spinal canal stenosis at L4-5. Status: Acute (4) Closed L4 vertebral fracture: Problem details: -10/30/2024 -CT scan of lumbar spine 12/22/2024: 1. Recent (acute/subacute) L4 compression fracture and bilateral sacral ala fractures. 2. Chronic-appearing compression deformities at T12, L1, and L3, with cement augmentation at T12 and L3. 3. Spondylosis and spondylolisthesis as detailed, with suspected moderate to severe spinal canal stenosis at L4-5. Status: Acute (5) Spinal stenosis: Problem details: -CT scan of lumbar spine 12/22/2024: 1. Recent (acute/subacute) L4 compression fracture and bilateral sacral ala fractures. 2. Chronic-appearing compression deformities at T12, L1, and L3, with cement augmentation at T12 and L3. 3. Spondylosis and spondylolisthesis as detailed, with suspected moderate to severe spinal canal stenosis at L4-5. Status: Acute Plan VTE prophylaxis: on chronic Eliquis Time Spent With Patient Total time spent: Today I spent 35 minutes seeing the patient, reviewing Expanse and EPIC notes/diagnostics/labs, discussing the care plan with our care team that includes social work, PT/OT, pharmacy, RT, chcf and documenting my impressions and plan in the medical record. Subjective Time Seen by Provider: 09:37 Date Seen: 12/23/24 Interval history: Pat reports that she is still too painful to walk. She is understanding that if she is unable to ambulate, she will not be safe to go home and will need rehab. She denies any other concerns. Exam Narrative: Exam Narrative: General: No acute distress. Appears comfortable sitting in the bedside chair, eating breakfast. Awake, alert, oriented x3. No pallor. No jaundice. Oropharynx: Clear. Mucous membranes moist. Cardiovascular: Regular rate and rhythm. No murmurs, gallops, or rubs. Respiratory: Clear to auscultation bilaterally. No wheezes or crackles. Abdomen: Bowel sounds present. Soft, nondistended, nontender. Extremities: Tender to palpation over the lateral right hip. No erythema, wounds, ecchymosis, warmth or rash. Good range of motion with the right leg. No lower extremity edema. Const: Vital Signs, click to edit/add: Vital Signs - 24 hr 12/22/24 14:56 12/22/24 15:58 12/22/24 16:00 Temperature 98.4 F Pulse Rate 60 60 Pulse Rate [Left P ulse Oximeter] Pulse Rate [Pulse Oximeter] 82 Respiratory Rate 18 16 Blood Pressure Blood Pressure [Le ft Radial Artery] Blood Pressure [Ri ght Upper Arm] 125/107 H Pulse Oximetry 98 92 95 [facility] 12/22/24 16:01 12/22/24 16:15 12/22/24 16:30 Temperature Pulse Rate 60 60 60 Pulse Rate [Left P ulse Oximeter] Pulse Rate [Pulse Oximeter] Respiratory Rate Blood Pressure 124/52 L Blood Pressure [Le ft Radial Artery] Blood Pressure [Ri ght Upper Arm] Pulse Oximetry 95 93 93 Oxygen Delivery Me thod 12/22/24 16:32 12/22/24 16:33 12/22/24 19:59 Temperature 97.6 F Pulse Rate 60 60 Pulse Rate [Left P ulse Oximeter] Pulse Rate [Pulse Oximeter] Respiratory Rate 16 Blood Pressure 133/61 Blood Pressure [Le ft Radial Artery] 161/75 H Blood Pressure [Ri ght Upper Arm] Pulse Oximetry 90 89 95 [facility] 12/22/24 19:59 12/22/24 22:27 12/22/24 22:27 Temperature 97.6 F Pulse Rate Pulse Rate [Left P ulse Oximeter] 60 Pulse Rate [Pulse Oximeter] Respiratory Rate 16 16 16 Blood Pressure Blood Pressure [Le ft Radial Artery] 112/53 L Blood Pressure [Ri ght Upper Arm] Pulse Oximetry 95 92 Oxygen Delivery Me thod Room Air Room Air 12/23/24 02:44 Temperature 97.6 F Pulse Rate Pulse Rate [Left P ulse Oximeter] 60 Pulse Rate [Pulse Oximeter] Respiratory Rate 16 Blood Pressure Blood Pressure [Le ft Radial Artery] 124/55 L Blood Pressure [Ri ght Upper Arm] Pulse Oximetry 91 Oxygen Delivery Me thod Room Air Labs Labs: Laboratory Results - last 24 hr 12/22/24 12/23/24 17:20 06:11 WBC 10.47 RBC 4.69 Hgb 13.4 Hct 41.3 MCV 88 MCH 29 MCHC 32 RDW Coeff of Maile 13.2 Plt Count 209 Neut % (Auto) 76.7 H Lymph % (Auto) 13.6 L George % (Auto) 7.7 Eos % (Auto) 0.8 Baso % (Auto) 0.4 Neut # (Auto) 8.00 H Lymph # (Auto) 1.40 George # (Auto) 0.80 Eos # (Auto) 0.08 Baso # (Auto) 0.04 Abs Immat Gran (auto) 0.08 Imm/Tot Granulo (auto) 0.8 INR 1.20 H APTT 32 Sodium 141 139 Potassium 4.0 4.8 Chloride 104 105 Carbon Dioxide 25 23 Anion Gap 12 11 BUN 47 H 53 H Creatinine 1.6 H 1.6 H Estimated Creat Clear 20.99 20.99 Estimated GFR 31 31 Glucose 58 L 197 H Lactate 1.5 Calcium 9.6 9.4 Phosphorus 4.0 Total Bilirubin 0.4 Direct Bilirubin 0.3 AST 22 ALT 17 Alkaline Phosphatase 213 H C-Reactive Protein 2.1 H 2.0 H Total Protein 6.8 Albumin 3.7 3.4
[2024-12-24] VITALS (7 sets, daily range): BP systolic 121–171; BP diastolic 60–80; PULSE 60–63; RESP 16–20; TEMP 36.5–36.9; O2SAT 91–97
--- NOTE | 2024-12-24 06:07 | PC.NURSE ---
Shift note: Pt is alert and oriented. Hard of hearing. She appears more active tonight. Vitally stable. Pain only with activity. Pt had adequate sleep.
[2024-12-24] MEDS: ACETAMINOPHEN 325 MG TABLET 650 MG PO ×4 (07:30→20:27)
[2024-12-24] MEDS: OXYCODONE 5 MG TABLET PO ×3 (07:31→18:52)
[2024-12-24] MEDS: INSULIN ASPART 100 UNIT/ML 6 UNIT SUBCUT ×3 (07:40→18:12)
[2024-12-24] MEDS: INSULIN GLARGINE,HUM.REC.ANLOG 100 UNIT/ML INSULN.PEN 14 UNIT SUBCUT (07:40)
[2024-12-24] MEDS: METOPROLOL TARTRATE 25 MG TABLET 12.5 MG PO ×2 (09:56→20:28)
[2024-12-24] MEDS: OMEPRAZOLE 20 MG CAPSULE DR 40 MG PO ×2 (09:56→20:26)
[2024-12-24] MEDS: SENNOSIDES/DOCUSATE TABLET 1 TAB PO ×2 (09:57→20:28)
[2024-12-24] MEDS: ESCITALOPRAM 10 MG TABLET 5 MG PO (09:57)
[2024-12-24] MEDS: APIXABAN 5 MG TABLET 2.5 MG PO ×2 (09:58→20:27)
[2024-12-24] MEDS: SODIUM CHLORIDE 0.9 % (FLUSH) 10 ML SYRINGE 5 ML IVF ×2 (10:00→20:29)
[2024-12-24] MEDS: INSULIN ASPART 100 UNIT/ML SUBCUT (13:23)
--- NOTE | 2024-12-24 14:56 | PM.IMPN1 ---
Progress Note: A&P Assessment and plan (1) Uncontrolled pain: Problem details: - multiple possible etiologies including anatomical, psychiatric - no improvement of pain. OT recommends SNF with therapies at discharge. SW for disposition. No SNF bed available this weekend. No safe discharge at present. Continue PT and OT. Continue prn pain medicine. Add lidocaine patch. Status: Acute (2) Chronic back pain: Problem details: - [employer] implanted neurostimulator about 7 years ago, concern about possible malfunction, currently turned off, will need future interrogation to determine if it is functional or not Status: Acute (3) Bilateral sacral insufficiency fracture: Problem details: -10/30/24 -CT scan of lumbar spine 12/22/2024: 1. Recent (acute/subacute) L4 compression fracture and bilateral sacral ala fractures. 2. Chronic-appearing compression deformities at T12, L1, and L3, with cement augmentation at T12 and L3. 3. Spondylosis and spondylolisthesis as detailed, with suspected moderate to severe spinal canal stenosis at L4-5. Status: Acute (4) Closed L4 vertebral fracture: Problem details: -10/30/2024 -CT scan of lumbar spine 12/22/2024: 1. Recent (acute/subacute) L4 compression fracture and bilateral sacral ala fractures. 2. Chronic-appearing compression deformities at T12, L1, and L3, with cement augmentation at T12 and L3. 3. Spondylosis and spondylolisthesis as detailed, with suspected moderate to severe spinal canal stenosis at L4-5. Status: Acute (5) Spinal stenosis: Problem details: -CT scan of lumbar spine 12/22/2024: 1. Recent (acute/subacute) L4 compression fracture and bilateral sacral ala fractures. 2. Chronic-appearing compression deformities at T12, L1, and L3, with cement augmentation at T12 and L3. 3. Spondylosis and spondylolisthesis as detailed, with suspected moderate to severe spinal canal stenosis at L4-5. Status: Acute (6) Cognitive impairment: Problem details: MOCA today Status: Suspected Plan VTE prophylaxis: on chronic Eliquis Subjective Time Seen by Provider: 08:07 Date Seen: 12/24/24 Interval history: Francine continues to have pain in her right low back that radiates down her right hip and upper thigh. She is otherwise well, working with PT and OT. Exam Const: Vital Signs, click to edit/add: Vital Signs - 24 hr 12/23/24 15:00 12/23/24 15:00 12/23/24 19:00 Temperature 98.1 F 98.2 F Pulse Rate [Left P ulse Oximeter] 60 60 61 Respiratory Rate 16 16 16 Blood Pressure [Le ft Radial Artery] 144/78 H 115/53 L Blood Pressure [Ri ght Arm] Pulse Oximetry 92 93 Oxygen Delivery Me thod Room Air Room Air 12/23/24 21:31 12/23/24 22:42 12/24/24 02:16 Temperature 98 F 97.7 F Pulse Rate [Left P ulse Oximeter] 68 68 63 Respiratory Rate 16 16 16 Blood Pressure [Le ft Radial Artery] 122/54 L 144/65 H Blood Pressure [Ri ght Arm] Pulse Oximetry 93 91 Oxygen Delivery Me thod Room Air Room Air 12/24/24 07:00 12/24/24 07:00 12/24/24 11:00 Temperature 98.4 F 98.1 F Pulse Rate [Left P ulse Oximeter] 60 60 63 Respiratory Rate 16 16 20 Blood Pressure [Le ft Radial Artery] 171/80 H Blood Pressure [Ri ght Arm] 133/73 Pulse Oximetry 95 97 Oxygen Delivery Me thod Room Air
[2024-12-24] MEDS: LIDOCAINE 5% PATCH 1 PATCH TRANSDERMA (15:41)
--- NOTE | 2024-12-24 17:28 | PC.NURSE ---
End of Shift ([id number]): Patient pleasant and cooperative. Patient vitally stable, lung clear, BS WNL, IV SL and intact. Patient rates back pain 8/10, scheduled tylenol given and lidocaine patch applied to right lower back. Patient 1-2 assist/walker.
--- NOTE | 2024-12-24 19:09 | PC.NURSE ---
End of shift-- Pleasant and cooperative, alert and oriented patient. VSS and pt is afebrile. Pt c/o spasm-type pain in her lower back which she rated as high as 10 out of 10, and made patient tearful and miserable, that appears well managed with Oxycodone Q6H and scheduled Tylenol. LS CTA. She denied nausea and tolerated a regular diet without difficulty. Pt incontinent of urine twice today. She was up to the chair with assist of 1-2, belt and walker and tolerated it fair. Report to MIKE Alejo.
[2024-12-25] MEDS: OXYCODONE 5 MG TABLET PO ×4 (02:54→20:50)
[2024-12-25 02:57] VITALS: BP 173/81; PULSE 69; RESP 18; TEMP 36.8; O2SAT 92
--- NOTE | 2024-12-25 03:59 | PC.NURSE ---
Shift note: Pt is doing well but he refused to get out of bed to use the BSC. Instead, she preferred to use brief to urinate while in bed. At 0300, she rated her pain level 10/10. Bp at that time was elevated. Oxycodone given which appeared effective. Hard of hearing. No fever or SOB recorded. Pt had adequate sleep.
--- NOTE | 2024-12-25 04:34 | PC.NURSE ---
0300 pt with call light on-asking for a dry gown and pants changed. Pt able to roll back and forth for bed change. Pad, gown and attends soaked with foul smelling urine. States she drinks alot of diet coke. Asking for pain meds-will notify primary RN.
[2024-12-25 07:00] VITALS: BP 189/76; PULSE 60; RESP 20; TEMP 36.8; O2SAT 95
[2024-12-25] MEDS: INSULIN ASPART 100 UNIT/ML SUBCUT ×3 (08:40→17:47)
[2024-12-25] MEDS: INSULIN ASPART 100 UNIT/ML 6 UNIT SUBCUT ×3 (08:40→17:47)
[2024-12-25] MEDS: INSULIN GLARGINE,HUM.REC.ANLOG 100 UNIT/ML INSULN.PEN 14 UNIT SUBCUT (08:40)
[2024-12-25] MEDS: CYCLOBENZAPRINE HCL 10 MG TABLET PO ×3 (08:43→20:50)
[2024-12-25] MEDS: METOPROLOL TARTRATE 25 MG TABLET 12.5 MG PO ×2 (08:43→20:50)
[2024-12-25] MEDS: ACETAMINOPHEN 325 MG TABLET 650 MG PO ×4 (08:44→20:50)
[2024-12-25] MEDS: SENNOSIDES/DOCUSATE TABLET 1 TAB PO ×2 (08:44→20:50)
[2024-12-25] MEDS: OMEPRAZOLE 20 MG CAPSULE DR 40 MG PO ×2 (08:44→20:49)
[2024-12-25] MEDS: ESCITALOPRAM 10 MG TABLET 5 MG PO (08:44)
[2024-12-25] MEDS: APIXABAN 5 MG TABLET 2.5 MG PO ×2 (08:44→20:50)
[2024-12-25] MEDS: polyethylene glycoL 3350 17 GM PACK PO (08:50)
[2024-12-25] MEDS: SODIUM CHLORIDE 0.9 % (FLUSH) 10 ML SYRINGE 5 ML IVF ×2 (08:51→20:58)
--- NOTE | 2024-12-25 10:32 | PM.IMPN1 ---
Progress Note: A&P Assessment and plan (1) Uncontrolled pain: Problem details: - multiple possible etiologies including anatomical, psychiatric - no improvement of pain. OT recommends SNF with therapies at discharge. SW for disposition. No SNF bed available this weekend. No safe discharge at present. Continue PT and OT. Continue prn pain medicine. Lidocaine patch helpful. Start cyclobenzaprine for muscle spasms. Status: Acute (2) Chronic back pain: Problem details: - [employer] implanted neurostimulator about 7 years ago, concern about possible malfunction, currently turned off, will need future interrogation to determine if it is functional or not Status: Acute (3) Bilateral sacral insufficiency fracture: Problem details: -10/30/24 -CT scan of lumbar spine 12/22/2024: 1. Recent (acute/subacute) L4 compression fracture and bilateral sacral ala fractures. 2. Chronic-appearing compression deformities at T12, L1, and L3, with cement augmentation at T12 and L3. 3. Spondylosis and spondylolisthesis as detailed, with suspected moderate to severe spinal canal stenosis at L4-5. Status: Acute (4) Closed L4 vertebral fracture: Problem details: -10/30/2024 -CT scan of lumbar spine 12/22/2024: 1. Recent (acute/subacute) L4 compression fracture and bilateral sacral ala fractures. 2. Chronic-appearing compression deformities at T12, L1, and L3, with cement augmentation at T12 and L3. 3. Spondylosis and spondylolisthesis as detailed, with suspected moderate to severe spinal canal stenosis at L4-5. Status: Acute (5) Spinal stenosis: Problem details: -CT scan of lumbar spine 12/22/2024: 1. Recent (acute/subacute) L4 compression fracture and bilateral sacral ala fractures. 2. Chronic-appearing compression deformities at T12, L1, and L3, with cement augmentation at T12 and L3. 3. Spondylosis and spondylolisthesis as detailed, with suspected moderate to severe spinal canal stenosis at L4-5. Status: Acute (6) Cognitive impairment: Problem details: 12/24/24 MOCA Status: Acute Plan VTE prophylaxis: on chronic Eliquis Subjective Time Seen by Provider: 08:07 Date Seen: 12/25/24 Interval history: Pat appeared comfortable when I walked in. When she saw me, she immediately complained of spasms. She asked if there was any more medicine I could give her for pain and spasms. We discussed the risks of drowsiness and falls with many of the medications. I encouraged her to use ice and heat. She noted that the lidocaine patch helps when she can wear it. Exam Narrative: Exam Narrative: General: No acute distress. Appears comfortable laying in bed. Awake, alert, oriented. No pallor. No jaundice. Oropharynx: Clear. Mucous membranes moist. Cardiovascular: Regular rate and rhythm. No murmurs, gallops, or rubs. Respiratory: Clear to auscultation bilaterally. No wheezes or crackles. Abdomen: Bowel sounds present. Soft, nondistended, nontender. Extremities: Tender to palpation over the lateral right hip. No erythema, wounds, ecchymosis, warmth or rash. Good range of motion with the right leg. No lower extremity edema. Exam unchanged. No muscle spasms noted during my exam. Const: Vital Signs, click to edit/add: Vital Signs - 24 hr 12/24/24 11:00 12/24/24 15:00 12/24/24 16:27 Temperature 98.1 F 98.1 F Pulse Rate [Left P ulse Oximeter] 63 62 Respiratory Rate 20 18 18 Blood Pressure [Le ft Radial Artery] 124/63 Blood Pressure [Ri ght Arm] 133/73 Pulse Oximetry 97 94 Oxygen Delivery Co thod Room Air 12/24/24 19:00 12/24/24 22:15 12/24/24 22:15 Temperature 98.4 F 98.2 F Pulse Rate [Left P ulse Oximeter] 62 60 60 Respiratory Rate 18 18 18 Blood Pressure [Le ft Radial Artery] Blood Pressure [Ri ght Arm] 121/60 164/70 H Pulse Oximetry 92 92 Oxygen Delivery Co thod Room Air Room Air 12/25/24 02:57 12/25/24 07:00 12/25/24 07:00 Temperature 98.2 F 98.2 F Pulse Rate [Left P ulse Oximeter] 69 60 60 Respiratory Rate 18 20 20 Blood Pressure [Le ft Radial Artery] 173/81 H 189/76 H Blood Pressure [Ri ght Arm] Pulse Oximetry 92 95 [facility]
[2024-12-25 11:00] VITALS: BP 167/66; PULSE 60; RESP 18; TEMP 36.7; O2SAT 93
--- NOTE | 2024-12-25 11:39 | PC.SOCIAL ---
Discharge planning: Met with pt who is requesting to be discharged form the hospital to [facility] where she had been for a Medicare covered rehab stay prior to her recent return to her home. Secure emailed pt information to Sushant in admissions at [facility]. Awaiting call back with decision on admit. riprap worker to follow up as needed.
[2024-12-25] MEDS: LIDOCAINE 5% PATCH 1 PATCH TRANSDERMA (14:22)
[2024-12-25 14:59] VITALS: BP 170/73; PULSE 60; RESP 16; RESP 18; TEMP 36.7; O2SAT 94
--- NOTE | 2024-12-25 18:37 | PC.NURSE ---
Patient alert and oriented. VSS. on RA. pain controlled with lidocaine patch to lower back, prn oxy. scheduled Tylenol and cyclobenzaprine. Patient also alternated with Heating pad and Ice. Blood sugars managed with sliding scale and scheduled insulin. see eMAR. Patient up to chair for meals and worked with PT/OT to increase activity.
[2024-12-25 20:48] VITALS: BP 142/76; PULSE 63; RESP 16; TEMP 36.8; O2SAT 94
[2024-12-25 22:17] VITALS: BP 153/83; PULSE 59; RESP 16; TEMP 36.6; O2SAT 95
[2024-12-26 02:55] VITALS: BP 163/85; PULSE 77; RESP 16; TEMP 36.5; O2SAT 94
[2024-12-26] MEDS: OXYCODONE 5 MG TABLET PO ×3 (03:03→17:26)
[2024-12-26] MEDS: CYCLOBENZAPRINE HCL 10 MG TABLET PO ×2 (03:03→20:35)
--- NOTE | 2024-12-26 05:14 | PC.NURSE ---
Pt alert and oriented x3. Afebrile. Pt reports 6-8/10 pain in back. Pt is up A2 with walker and gait belt to commode, voiding and tolerating a regular diet. ?
[2024-12-26 07:00] VITALS: BP 204/81; PULSE 62; RESP 18; TEMP 36.7; O2SAT 92
[2024-12-26] MEDS: SENNOSIDES/DOCUSATE TABLET 1 TAB PO ×2 (08:49→20:35)
[2024-12-26] MEDS: ESCITALOPRAM 10 MG TABLET 5 MG PO (08:49)
[2024-12-26] MEDS: APIXABAN 5 MG TABLET 2.5 MG PO ×2 (08:50→20:35)
[2024-12-26] MEDS: ACETAMINOPHEN 325 MG TABLET 650 MG PO ×4 (08:50→20:34)
[2024-12-26] MEDS: OMEPRAZOLE 20 MG CAPSULE DR 40 MG PO ×2 (08:50→20:34)
[2024-12-26] MEDS: METOPROLOL TARTRATE 25 MG TABLET 12.5 MG PO ×2 (08:50→20:36)
[2024-12-26] MEDS: SODIUM CHLORIDE 0.9 % (FLUSH) 10 ML SYRINGE 5 ML IVF ×2 (08:51→20:38)
[2024-12-26] MEDS: INSULIN ASPART 100 UNIT/ML 6 UNIT SUBCUT ×3 (08:51→17:31)
[2024-12-26] MEDS: INSULIN ASPART 100 UNIT/ML SUBCUT ×2 (08:51→12:47)
[2024-12-26] MEDS: INSULIN GLARGINE,HUM.REC.ANLOG 100 UNIT/ML INSULN.PEN 14 UNIT SUBCUT (08:53)
[2024-12-26 11:00] VITALS: BP 130/81; PULSE 63; RESP 16; TEMP 36.5; O2SAT 95
--- NOTE | 2024-12-26 14:06 | PM.DS1 ---
DS: Providers Provider Time Seen by Provider: 07:49 Date Seen: 12/26/24 Date of admission: 12/22/24 19:08 Primary care physician: Anisa Matthews APRN, CORRECTIONAL OFFICER SERGEANT Admitting Clinician: Juan Miguel Tatum MD Consults: 12/22/24 20:08 Consult to Occupational Therapy [CONS] Routine Comment: Reason(s) for OT Consult:: Evaluate and Treat Any Restrictions?:: No Restrictions Consult to Physical Therapy [CONS] Routine Comment: Reason(s) for PT Consult:: Evaluate and Treat Any Restrictions?:: No Restrictions Consult to Auto Suspension And Steering Mechanic [CONS] Routine Comment: Reason for Consult:: Discharge Planning Needs Attending Physician on discharge: Lotus Arreaga MD Date of Discharge: 12/27/24 DS: Diagnosis Discharge Diagnosis (1) Uncontrolled pain: Status: Resolved Problem details: - multiple possible etiologies including anatomical, psychiatric - no improvement of pain. OT recommends SNF with therapies at discharge. [facility] tomorrow. Continue PT and OT. Continue prn pain medicine. Lidocaine patch helpful. Continue a few days of cyclobenzaprine for muscle spasms. (2) Chronic back pain: Status: Acute Problem details: - Medtronic implanted neurostimulator about 7 years ago, concern about possible malfunction, currently turned off, will need future interrogation to determine if it is functional or not (3) Bilateral sacral insufficiency fracture: Status: Acute Problem details: -10/30/24 -CT scan of lumbar spine 12/22/2024: 1. Recent (acute/subacute) L4 compression fracture and bilateral sacral ala fractures. 2. Chronic-appearing compression deformities at T12, L1, and L3, with cement augmentation at T12 and L3. 3. Spondylosis and spondylolisthesis as detailed, with suspected moderate to severe spinal canal stenosis at L4-5. (4) Closed L4 vertebral fracture: Status: Acute Problem details: -10/30/2024 -CT scan of lumbar spine 12/22/2024: 1. Recent (acute/subacute) L4 compression fracture and bilateral sacral ala fractures. 2. Chronic-appearing compression deformities at T12, L1, and L3, with cement augmentation at T12 and L3. 3. Spondylosis and spondylolisthesis as detailed, with suspected moderate to severe spinal canal stenosis at L4-5. (5) Spinal stenosis: Status: Acute Problem details: -CT scan of lumbar spine 12/22/2024: 1. Recent (acute/subacute) L4 compression fracture and bilateral sacral ala fractures. 2. Chronic-appearing compression deformities at T12, L1, and L3, with cement augmentation at T12 and L3. 3. Spondylosis and spondylolisthesis as detailed, with suspected moderate to severe spinal canal stenosis at L4-5. (6) Cognitive impairment: Status: Acute Problem details: 12/24/24 MOCA DS: Summary Hospital Course Hospital Course: Per H&P: Hayde Fong is a 89 year old will who lives alone in her own apartment in [place], [place]. She presents to our emergency department via EMS for assessment of acute on chronic back pain. On 10/30/2024 patient fell while walking in her apartment without her walker. She states her legs gave out. She was assessed and found to have an acute sacral fracture and treated for the same at [place], [place]. She was in the hospital for about 3 weeks. Was seen by various specialists. Discharge to [facility] facility for transitional care services where she remained for another 3 weeks. Was doing well. Was ambulating independently with her walker. Was then discharged to her new apartment. Ever since she has been back in her apartment she states things have been ?going downhill.? She lives alone in her apartment. Her daughter has been helping her with her cares including medication dispensing. Her daughter has been concerned about the patient utilizing too much oxycodone and has thus been the only 1 dispense in the oxycodone, according to the patient. Patient states when she takes her oxycodone she does well. When she does not takes her oxycodone the pain is severe. At rest she rates her pain as 6/10. With any movement of her right leg or attempts at weight-bearing or changing position her pain flares up to 10/10. Patient has had chronic back pain for number of years. She had a Medtronic neural stimulator implant roughly 7 years ago. She believes her implant has recently been malfunctioning. Her daughter reportedly obtain a new part for this implant and it has not made it any worse or better. Historically had fair results from use of the neurostimulator implant. In the emergency department the staff were able to reach the [employer] contact lens edge buffer who advise that they turn off the implant given the uncertainty of its function. No recent trauma, injury, travel. No fevers, rigors, diaphoresis. No contact with others who are ill. Mostly lying around in her home because efforts to move or bear any weight cause increased pain. Denies change in bowel or bladder function. Denies change or loss in sensory awareness. Patient admitted for pain, inability to return home, need for SNF placement. PT and OT recommending SNF for therapies. Medically stable. Planning [facility] tomorrow. 12/27/24 ADDENDUM: Day of discharge, tessy stable, no concerns. Discharged to [facility] in [place]. Time Spent with Patient Time attestation: Total time spent providing and/or coordinating discharge services: Exam Narrative: Exam Narrative: General: No acute distress. Appears comfortable laying in bed. Awake, alert, oriented. No pallor. No jaundice. Oropharynx: Clear. Mucous membranes moist. Cardiovascular: Regular rate and rhythm. No murmurs, gallops, or rubs. Respiratory: Clear to auscultation bilaterally. No wheezes or crackles. Abdomen: Bowel sounds present. Soft, nondistended, nontender. Extremities: Nontender today. No ecchymosis. Const: Vital Signs, click to edit/add: Vital Signs - 24 hr 12/25/24 14:59 12/25/24 14:59 12/25/24 20:48 Temperature 98.1 F 98.2 F Pulse Rate [Left P ulse Oximeter] 60 60 63 Respiratory Rate 18 16 16 Blood Pressure [Le ft Radial Artery] 142/76 H Blood Pressure [Ri ght Arm] 170/73 H Pulse Oximetry 94 94 Oxygen Delivery Me thod Room Air Room Air 12/25/24 22:17 12/26/24 02:55 12/26/24 07:00 Temperature 97.8 F 97.7 F Pulse Rate [Left P ulse Oximeter] 59 L 77 62 Respiratory Rate 16 16 18 Blood Pressure [Le ft Radial Artery] 153/83 H 163/85 H Blood Pressure [Ri ght Arm] Pulse Oximetry 95 94 Oxygen Delivery Va thod Room Air Room Air 12/26/24 07:00 12/26/24 11:00 Temperature 98.0 F 97.7 F Pulse Rate [Left P ulse Oximeter] 62 63 Respiratory Rate 18 16 Blood Pressure [Le ft Radial Artery] 204/81 H Blood Pressure [Ri ght Arm] 130/81 Pulse Oximetry 92 95 Oxygen Delivery Me thod Room Air Room Air DS: Data Data Completed and Pending Completed studies during hospitalization: Ordering Physician: Dario Low M.D. Date of Service: 12/22/24 Procedure(s): CT lumbar spine wo con Accession Number(s): [id number] cc: JANETH MIXON, Anisa Matthews; Dario Low M.D.~ For Patients: As a result of the Cures Act, medical imaging exams and procedure reports are released immediately into your electronic medical record. You may view this report before your referring provider. If you have questions, please contact your health care provider. Indication: Marked increase in leg pain Technique: Noncontrast axial CT of the lumbar spine with coronal and sagittal reformats. Comparison: Pelvis x-ray report 11/23/2024 Findings: There is artifact at the thoracolumbar junction, degrading image quality and limiting evaluation. T12 chronic compression deformity, status post cement augmentation. L1 chronic compression deformity. L3 chronic compression deformity status post cement augmentation. L4 compression fracture, presumed acute/subacute. Right sacral ala fracture, presumed acute/subacute. Left sacral ala fracture, presumed subacute. Preserved lumbar lordosis. Grade 1 anterolisthesis at L3-4 and L4-5. Multilevel spondylosis. Moderate to severe spinal canal stenosis at L4-5, moderate spinal canal stenosis at L2-3. Multilevel neural foraminal stenosis, moderate/moderately severe on the right at L5-S1, lower grade elsewhere. Partially visualized presumed neurostimulator. Impression: 1. Recent (acute/subacute) L4 compression fracture and bilateral sacral ala fractures. 2. Chronic-appearing compression deformities at T12, L1, and L3, with cement augmentation at T12 and L3. 3. Spondylosis and spondylolisthesis as detailed, with suspected moderate to severe spinal canal stenosis at L4-5. Please note that all CT scans at this facility use dose modulation, iterative reconstruction, and/or weight-based dosing when appropriate to reduce radiation dose to as low as reasonably achievable. Dictated by Akua Martinez MD @ 12/22/2024 5:17:40 PM (Electronically Signed) Ordering Physician: Dario Low M.D. Date of Service: 12/22/24 Procedure(s): CT pelvis wo con Accession Number(s): [id number] cc: Anisa FOWLER CNP; Dario Low M.D.~ For Patients: As a result of the Century Cures Act, medical imaging exams and procedure reports are released immediately into your electronic medical record. You may view this report before your referring provider. If you have questions, please contact your health care provider. INDICATION: MARKED INCREASE IN LEG PAIN, RECENT PELVIS FX WITH INCREASED RADICULAR PAIN COMPARISON: 11/23/2024 sacral/coccygeal radiographs TECHNIQUE: CT of the pelvis without intravenous contrast. FINDINGS: Diffuse osseous demineralization. Subacute overall [id number] displaced fractures of the left obturator ring are again noted involving the superior pubic ramus, parasymphyseal pubic bone, and inferior pubic ramus. There is some callus formation associated with the aforementioned fractures, although the fracture lines remain clearly visualized. Subacute mildly displaced fracture of the left sacral ala/lateral hemisacrum which extends to the sacroiliac joint articular surface. Acute to subacute minimally displaced fracture of the right sacral ala/lateral sacrum extending to the sacroiliac joint. Acute to subacute minimally displaced fracture of the L5 left transverse process and probably also at the L5 right transverse process. Please see separately dictated report for additional findings in the lumbar spine. Mild degenerative change of the hips. [id number] degenerative changes in the sacroiliac joints and pubic symphysis. Mild focal bandlike bladder wall thickening extending from the bladder dome to the lateral hutchison of the bladder of unclear etiology, but possibly due to decompression. Surgically absent uterus. There are atherosclerotic vascular calcifications. There is presacral fat stranding. There is a battery pack implanted in the subcutaneous fat of the right gluteal region. There is scarring in the ventral abdominal wall. IMPRESSION: 1. Acute to subacute fractures including the bilateral hemisacrum, left L5 transverse process, left obturator ring, and probably the right L5 transverse process as further described above. 2. Mild focal bandlike bladder wall thickening extending from the bladder dome to the lateral hutchison of the bladder which is of unclear etiology, but possibly due to decompression. 3. Please see separately dictated report for findings in the lumbar spine. Please note that all CT scans at this facility use dose modulation, iterative reconstruction, and/or weight-based dosing when appropriate to reduce radiation dose to as low as reasonably achievable. Dictated by Yovanny Ding MD @ 12/22/2024 5:39:58 PM (Electronically Signed) Discharge Plan Discharge Disposition: Xfer [facility] Date of Admission: 12/22/24 19:08 Attending Provider on Discharge: Lotus Arreaga Consulting Providers: Dario Low; Juan Miguel Tatum; Lotus Arreaga Primary Care Provider: Anisa Matthews Condition: Stable Anticipated Discharge Date/Time: 12/27/24 10:00 Discharge Medications: New cyclobenzaprine 10 mg Tablet 10 mg PO TID PRN (Reason: Muscle Spasm) 3 Days Qty: 10 0RF lidocaine 5 % Adhesive Patch,Medicated 1 patch transdermal Q24H Qty: 30 0RF oxycodone 5 mg Tablet 5 mg PO Q6H PRNQty: 30 0RF pregabalin [Lyrica] 50 mg capsule 50 mg PO BID Qty: 60 0RF Rx Instructions: Continuation of home medication Continued lubiprostone 24 mcg capsule 24 mcg PO BID metoprolol tartrate 25 mg tablet 12.5 mg PO BID sennosides-docusate sodium [Senna Plus] 8.6-50 mg tablet 1 tab PO BID PRN (DME) pen needle, diabetic [BD Ultra-Fine Micro Pen Needle] 32 gauge x 1/4 needle See Rx Instructions .ROUTE DAILY Qty: 100 Rx Instructions: As directed insulin aspart U-100 [Novolog U-100 Insulin aspart] 100 unit/mL solution 6 unit subcut TID diclofenac sodium 1 % gel 2 g topical QID PRN Rx Instructions: apply to single elbow, wrist or hand; for hand includes palm/fingers/back of hand insulin glargine [Lantus Solostar U-100 Insulin] 100 unit/mL (3 mL) insulin pen 14 unit subcut DAILY meclizine 12.5 mg tablet 12.5 mg PO TID PRN (Reason: dizziness) 30 Days Qty: 30 0RF (DME) Dexcom G7 Township Supervisor Misc See Rx Instructions .Route Qty: 1 0RF Rx Instructions: As directed (DME) Dexcom G7 Sensor Device See Rx Instructions .Route Qty: 9 3RF Rx Instructions: As directed Jardiance 10 mg tablet 10 mg PO QAM escitalopram oxalate [Lexapro] 5 mg tablet 5 mg PO DAILY Eliquis 2.5 mg tablet 2.5 mg PO BID Qty: 180 3RF omeprazole 40 mg capsule,delayed release(DR/EC) 40 mg PO BID Qty: 180 3RF nystatin 100,000 unit/gram cream 1 applic topical BID Qty: 30 0RF Discontinued pregabalin [Lyrica] 50 mg capsule 50 mg PO BID oxycodone 5 mg tablet 5 mg PO Q4H 28 Days Qty: 140 0RF Discharge Orders: Discharge Order (Routine); Ordered 12/27/24 Ordered By: Gwendolyn Brody Additional Instructions: Follow up for medtronic neural stimulator implant interogation. Activity Level: Up with assist and Use Walker Discharge Diet: Regular Follow Up Appointments: Anisa Matthews, DISPLAYER MERCHANDISE, CORRECTIONAL OFFICER SERGEANT [Primary Care Provider] - Forms: [facility] Info Instructions Admit to: SNF Discharge Potential: Fair Length of Stay: <30 days Can use facility standing orders?: Yes Code Status: DNR/DNI Rehab Potential: Fair Therapy: Physical Therapy and Occupational Therapy Therapy Orders: Evaluate and Treat Oxygen: No Urinary Catheter: No Signature: Lotus Arreaga MD
[2024-12-26 15:00] VITALS: PULSE 63; RESP 16
[2024-12-26] MEDS: LIDOCAINE 5% PATCH 1 PATCH TRANSDERMA (15:32)
--- NOTE | 2024-12-26 15:34 | PC.SOCIAL ---
Discharge plans: Received confirmation from Sushant in admitting at [facility] that pt can be admitted tomorrow 12/27/24 to [facility] where she was receiving rehab under a Medicare Qualifying stay about a week ago. Sushant states pt will be covered again by Medicare for this admission. Pt has been accepted to a shared room with a room mate who has a camera in her room but only on the room mate and will not be on this patient. Met with pt who is aware and agrees with this plan. Pt requested social staff worker call her daughter to request she bring clothes and personal items to the hospital for transport with pt to the [facility] tomorrow. Pt states she is not able to transport in a car and is requesting EMS transportation. baking factory worker to follow up as needed.
[2024-12-26 20:30] VITALS: BP 155/73; PULSE 61; RESP 16; TEMP 36.6; O2SAT 94
[2024-12-26 23:00] VITALS: RESP 16
[2024-12-27] MEDS: OXYCODONE 5 MG TABLET PO ×3 (00:04→11:01)
[2024-12-27 00:06] VITALS: BP 151/72; PULSE 63; RESP 18; TEMP 36.8; O2SAT 92
[2024-12-27 03:34] VITALS: BP 156/78; PULSE 60; RESP 16; TEMP 36.6; O2SAT 94
--- NOTE | 2024-12-27 06:48 | PC.NURSE ---
Pt alert and oriented x3. Afebrile. Pt reports 6-7/10 pain in back. Pt is up A2 with walker and gait belt?to bathroom, voiding and tolerating a regular diet. ?
[2024-12-27 08:00] VITALS: PULSE 60; RESP 18
[2024-12-27 08:10] VITALS: BP 147/66; PULSE 60; RESP 18; TEMP 36.7; O2SAT 94
[2024-12-27] MEDS: ESCITALOPRAM 10 MG TABLET 5 MG PO (08:36)
[2024-12-27] MEDS: APIXABAN 5 MG TABLET 2.5 MG PO (08:37)
[2024-12-27] MEDS: SENNOSIDES/DOCUSATE TABLET 1 TAB PO (08:38)
[2024-12-27] MEDS: OMEPRAZOLE 20 MG CAPSULE DR 40 MG PO (08:38)
[2024-12-27] MEDS: EMPAGLIFLOZIN 10 MG TABLET PO (08:39)
[2024-12-27] MEDS: METOPROLOL TARTRATE 25 MG TABLET 12.5 MG PO (08:39)
[2024-12-27] MEDS: ACETAMINOPHEN 325 MG TABLET 650 MG PO (08:39)
--- NOTE | 2024-12-27 08:46 | REH.OT ---
Attempted to see pt this AM. Pt refused to try getting out of bed with this OT, after initially replying okay to out of bed and maybe recliner chair this morning in preparation for breakfast and morning medications. Pt continued to refuse to make efforts to move to eob, and moved blankets back over herself in bed. Will hold OT today due to adamant refusal to participate.
[2024-12-27] MEDS: INSULIN GLARGINE,HUM.REC.ANLOG 100 UNIT/ML INSULN.PEN 14 UNIT SUBCUT (08:51)
[2024-12-27] MEDS: INSULIN ASPART 100 UNIT/ML SUBCUT (08:52)
[2024-12-27] MEDS: INSULIN ASPART 100 UNIT/ML 6 UNIT SUBCUT (08:52)
--- NOTE | 2024-12-27 09:29 | PC.SOCIAL ---
Discharge planning: Late entry: on 12/26/24, spoke with dtr at [facility] request [facility]. Dtr is in agreement with this plan and will bring pt's clothes and personal items directly to [facility] when she visits that day of admit. Dtr agrees with pt's decision for EMS transport and is aware and agrees to pay privately if needed. Dtr states they have needed to pay privately for hospital discharge to SNF before, so are aware of this. PAS completed and submitted [id number]. On 12/27/24, Discharge information secure emailed to Sushant at [facility] admissions with expected EMS hot die picker time of 10:15-11:30. pony worker to follow up as needed.
--- NOTE | 2024-12-27 11:50 | PC.NURSE ---
discharge. pt is alert and oriented x3.Pt reports 6-10/10 pain in back. she got po pain meds 5 mg oxy before discharge. Pt is up A2 with walker and gait belt?to bathroom. she is drinking voiding and tolerating a regular diet. she refused OT but she did do PT. PT and na got her dressed. SL was d/c intact. nurse to nurse was done. EMS given report
== END 2024-12-27 11:15 ==
LOC: ED 18:18 → MEDSURG 19:09
PROVIDERS: Admitting Provider Internal Medicine; Emergency Provider Family Medicine; PCP Nurse Practitioner Family; Visit Provider Internal Medicine
DX: G89.29 Other chronic pain (principal); M54.9 Dorsalgia, unspecified; M48.00 Spinal stenosis, site unspecified; R41.89 Other symptoms and signs involving cognitive functions and awareness; S32.049A Unspecified fracture of fourth lumbar vertebra, initial encounter for closed fracture; S32.10XA Unspecified fracture of sacrum, initial encounter for closed fracture; K21.9 Gastro-esophageal reflux disease without esophagitis; E11.9 Type 2 diabetes mellitus without complications; Z79.4 Long term (current) use of insulin; Z79.899 Other long term (current) drug therapy; Z95.0 Presence of cardiac pacemaker; Z87.440 Personal history of urinary (tract) infections; R53.83 Other fatigue
CPT/HCPCS: 36415; 72131; 72192; 80048; 80069; 80076; 82962; 83605; 85025; 85610; 85730; 86140; 96361; 96374; 96375; 97110; 97116; 97162; 97166; 97530; 97535; 99284; 99285; A9270; G0378; J1171; J1815; J1885; J7030

== ENCOUNTER 2024-12-27 11:18 | Outpatient (CLI) | payer MEDICARE, BC, SELFPAY | END 2024-12-27 11:19 | disposition home or self-care (01) | PROVIDERS: PCP Nurse Practitioner Family; Visit Provider Family Medicine | DX: M54.9 Dorsalgia, unspecified (principal); Z99.3 Dependence on wheelchair | CPT/HCPCS: A0425; A0428 ==

== ENCOUNTER 2025-02-12 16:55 | Inpatient (IN) | payer MEDICARE, BC, SELFPAY ==
[2025-02-12] VITALS (31 sets, daily range): BP systolic 125–173; BP diastolic 50–121; PULSE 60–76; RESP 11–24; TEMP 36.6–36.9; O2SAT 81–100; BMI 28.3; BMI 33.9
--- NOTE | 2025-02-12 17:24 | CRLHL7_ITS ---
For Patients: As a result of the Century Cures Act, medical imaging exams and procedure reports are released immediately into your electronic medical record. You may view this report before your referring provider. If you have questions, please contact your health care provider. DATE: 02/12/2025 CLINICAL HISTORY: Patient with focal neurological deficits. TECHNIQUE: Standard helical CT image acquisition through the intracranial circulation following intravenous administration of contrast material with bolus tracking. 2D and 3D MIP images for post-processing were performed and interpreted on an independent workstation and 3D images were permanently archived. COMPARISON: CT same day. FINDINGS: There is no cerebral aneurysm or large vessel occlusion. The right internal carotid artery is normal. The right middle cerebral artery and its branches are normal. The right anterior cerebral artery and its branches are normal. The left internal carotid artery is normal. The left middle cerebral artery and its branches are normal. The left anterior cerebral artery and its branches are normal. The anterior communicating artery is well visualized and appears normal. The right vertebral artery and PICA are normal. The left vertebral artery and PICA are normal. The left vertebral artery is dominant. The basilar artery is patent and appears normal. The right posterior cerebral artery is normal. The left posterior cerebral artery is normal. IMPRESSION: Patent proximal intracranial vasculature without intracranial aneurysms. Please note that all CT scans at this facility use dose modulation, iterative reconstruction, and/or weight-based dosing when appropriate to reduce radiation dose to as low as reasonably achievable. Dictated by Wallace Oreilly MD @ 02/13/2025 3:11:19 PM (Electronically Signed)
--- NOTE | 2025-02-12 17:24 | CRLHL7_ITS ---
For Patients: As a result of the Century Cures Act, medical imaging exams and procedure reports are released immediately into your electronic medical record. You may view this report before your referring provider. If you have questions, please contact your health care provider. INDICATION: Slurred speech, confusion this morning. COMPARISON: CT head 12/30/2023. TECHNIQUE: CT of the head without IV contrast. Coronal and sagittal reconstructions. FINDINGS: Brain: No intracranial hemorrhage, abnormal extra-axial fluid collection, or evidence of acute infarct. No mass effect or midline shift. Moderate generalized cerebral and cerebellar volume loss with associated ex vacuo dilation of the lateral ventricles. Moderate chronic small vessel ischemic disease. 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 Physiologic basal ganglia calcifications. Skull base and calvarium: Mild mucosal thickening in the bilateral maxillary sinuses. The visualized paranasal sinuses and mastoid air cells are otherwise clear. The visualized orbits are grossly unremarkable. No acute fracture identified. Soft tissues: Unremarkable. IMPRESSION: 1. No acute intracranial findings. 2. Generalized parenchymal volume loss and moderate chronic small vessel ischemic disease. Please note that all CT scans at this facility use dose modulation, iterative reconstruction, and/or weight-based dosing when appropriate to reduce radiation dose to as low as reasonably achievable. Dictated by Juli Murguia MD @ 02/12/2025 9:17:06 PM (Electronically Signed)
--- NOTE | 2025-02-12 17:24 | CRLHL7_ITS ---
For Patients: As a result of the Century Cures Act, medical imaging exams and procedure reports are released immediately into your electronic medical record. You may view this report before your referring provider. If you have questions, please contact your health care provider. DATE: 02/12/2025 CLINICAL HISTORY: Patient with focal neurological deficits. TECHNIQUE: Standard helical CT image acquisition of the neck up to the skull base after bolus intravenous contrast enhancement. 2D and 3D MIP images for post-processing were performed and interpreted on an independent workstation and 3D images were permanently archived. COMPARISON: CT same day. FINDINGS: The origins of the great vessels from the aortic arch are patent. The origin of the right vertebral artery is patent. The origin of the left vertebral artery is patent. The common carotid arteries are patent. There is plaque without stenosis at the origin of the right internal carotid artery. There is plaque without stenosis at the origin of the left internal carotid artery. The rest of the cervical segments of the internal carotid arteries are patent up to the skull base. The vertebral arteries are codominant. The cervical segments of the vertebral arteries are patent up to the skull base. The visualized lung apices are unremarkable. The thyroid gland is unremarkable. The soft tissues of the neck are unremarkable. There are degenerative changes in the cervical spine. IMPRESSION: Patent cervical vasculature. Please note that all CT scans at this facility use dose modulation, iterative reconstruction, and/or weight-based dosing when appropriate to reduce radiation dose to as low as reasonably achievable. Dictated by Wallace Oreilly MD @ 02/13/2025 3:10:03 PM (Electronically Signed)
--- NOTE | 2025-02-12 17:26 | CRLHL7_ITS ---
For Patients: As a result of the Century Cures Act, medical imaging exams and procedure reports are released immediately into your electronic medical record. You may view this report before your referring provider. If you have questions, please contact your health care provider. Indication: RUQ pain Technique: Multiple transverse and longitudinal sonographic grayscale images of the right upper quadrant of the abdomen were obtained, supplemented with color, power, and spectral Doppler imaging. Comparison: None. Findings: CBD: 1.2 cm. Gallbladder: Not definitively visualized. Possible gallbladder filled with echogenic debris versus gas-filled bowel. Impression: 1. Gallbladder is not definitively visualized. Possible gallbladder filled with echogenic debris versus gas-filled bowel. CT may be considered for further evaluation. 2. Enlarged common bile duct measuring 1.2 centimeter in diameter. Consider correlation with bilirubin levels to assess for obstruction with further evaluation by MRCP as clinically indicated. Dictated by Andrea Zavala MD @ 02/12/2025 6:47:10 PM (Electronically Signed)
--- NOTE | 2025-02-12 17:35 | ED_ITS ---
HPI - General Adult General Date Seen: 02/12/25 Chief complaint: Weakness Stated complaint: swelling Time Seen by Provider: 02/12/25 17:11 Source: patient and EMS Mode of arrival: EMS Limitations: no limitations History of Present Illness HPI narrative: Patient is an 89-year-old female presenting to the emergency department for multiple complaints. She is brought in by EMS from her clinic for weakness, lower extremity swelling, slurred speech. Her provider called the ED and spoke to us about her concerns about sending this patient home patient is transferred to our ED. According to the patient she was here month ago for right leg weakness. She states they did not find out what is wrong but on chart review shows she has had multiple acute to subacute vertebral fractures. [facility] where she felt like she was getting slightly better he was discharged 5 days ago. She lives home alone she states and for was ambulating poorly and then suddenly she states yesterday she woke up and felt like she could not move her left leg. Since then she has been having quite a bit difficulty ambulating and she states she is unable to ambulate at all anymore. She states the leg feels heavy. Also states she woke up this morning with slurred speech that has persisted and confusion that has since resolved. Is also knows quite male swelling her legs. Denies chest pain, shortness of breath, headache, lightheadedness, dizziness, abdominal pain, nausea, vomiting. I spoke to her Daughter on the phone. Her daughter state the slurred speech has been going on since discharge and was barely able to walk when discharged from the [facility]. She is able to walk 10-15 feet to bathroom with the walker. She has not been able to walk farther than that. She states the patient has had much worse memory than before and seems to be much more confused. Leg selling has been getting worse since discharge. Patient goes into kidney failure after 5 days of Lasix so is currently not on it. Live in own apartment. 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 Has not had concerns about safety at home until after she was discharged from [facility]. Related Data Home Medications ?Medication ?Instructions ?Recorded ?Confirmed lubiprostone 24 mcg capsule 24 mcg PO BID 10/26/23 02/12/25 metoprolol tartrate 25 mg tablet 12.5 mg PO BID 10/26/23 02/12/25 pen needle, diabetic 32 gauge x #100 ea 10/26/23 02/12/2511/11 (BD Ultra-Fine Micro Pen Needle) sennosides 8.6 mg-docusate sodium 1 tab PO BID PRN 10/26/23 02/12/25 50 mg tablet (Senna Plus) diclofenac sodium 1 % topical gel 2 g topical QID PRN 11/23/24 02/12/25 insulin aspart U-100 100 unit/mL 6 unit subcut TID 11/23/24 02/12/25 subcutaneous solution (Novolog U-100 Insulin aspart) insulin glargine 100 unit/mL (3 14 unit subcut DAILY 11/23/24 02/12/25 mL) subcutaneous pen (Lantus Solostar U-100 Insulin) empagliflozin 10 mg tablet 10 mg PO QAM 12/23/24 02/12/25 (Jardiance) buprenorphine HCl 2 mg sublingual 2 mg sublingual DAILY 02/12/25 02/12/25 tablet escitalopram oxalate 5 mg tablet 5 mg PO QDAY 02/12/25 02/12/25 (Lexapro) meclizine 12.5 mg tablet 12.5 mg PO 3XD PRN dizziness 02/12/25 02/12/25 Previous Rx's ?Medication ?Instructions ?Recorded blood-glucose sensor (Dexcom G7 #9 ea 01/27/24 Sensor device) blood-glucose,take off man,cont #1 ea 01/27/24 (Dexcom G7 Ui Developer) apixaban 2.5 mg tablet (Eliquis) 2.5 mg PO BID #180 tabs 02/03/24 omeprazole 40 mg capsule,delayed 40 mg PO BID #180 caps 03/22/24 release nystatin 100,000 unit/gram topical 1 applic topical BID #30 grams 10/30/24 cream lidocaine 5 % topical patch 1 patch transdermal Q24H #30 ea 12/26/24 pregabalin 50 mg capsule (Lyrica) 50 mg PO BID #60 caps 12/27/24 Allergies Allergy/AdvReac Type Severity Reaction Status Date / Time Iodinated Contrast Media Allergy Intermediate Hives Verified 02/12/25 19:29 diatrizoate meglumine Allergy Hives Verified 02/12/25 14:35 phenobarbital Allergy Verified 02/12/25 14:35 propoxyphene (From Darvon) Allergy Verified 02/12/25 14:35 [facility] Medical History (Updated 02/12/25 @ 21:41 by Jose Fried DO) Type 2 diabetes mellitus ?E11.9 - Type 2 diabetes mellitus without complications (ICD-10) Anxiety ?F41.9 - Anxiety disorder, unspecified (ICD-10) Closed L4 vertebral fracture ?S32.049A - Unspecified fracture of fourth lumbar vertebra, initial encounter for closed fracture (ICD-10) Bilateral sacral insufficiency fracture ?M84.48XA - Pathological fracture, other site, initial encounter for fracture (ICD-10) Cellulitis ?L03.90 - Cellulitis, unspecified (ICD-10) Hard of hearing ?H91.90 - Unspecified hearing loss, unspecified ear (ICD-10) Atrial fibrillation ?I48.91 - Unspecified atrial fibrillation (ICD-10) CHF (congestive heart failure) ?I50.9 - Heart failure, unspecified (ICD-10) Depression ?F32.A - Depression, unspecified (ICD-10) Constipation ?K59.00 - Constipation, unspecified (ICD-10) HTN (hypertension) ?I10 - Essential (primary) hypertension (ICD-10) Osteoarthritis ?M19.90 - Unspecified osteoarthritis, unspecified site (ICD-10) Neuropathy ?G62.9 - Polyneuropathy, unspecified (ICD-10) Nonischemic cardiomyopathy ?I42.8 - Other cardiomyopathies (ICD-10) Chronic renal insufficiency ?N18.9 - Chronic kidney disease, unspecified (ICD-10) Restless leg syndrome ?G25.81 - Restless legs syndrome (ICD-10) Recent urinary tract infection ?Z87.440 - Personal history of urinary (tract) infections (ICD-10) Left shoulder pain ?M25.512 - Pain in left shoulder (ICD-10) Nonadherence to medication ?Z91.148 - Patient's other noncompliance with medication regimen for other reason (ICD-10) Skin yeast infection ?B37.2 - Candidiasis of skin and nail (ICD-10) Fatigue ?R53.83 - Other fatigue (ICD-10) Cardiac pacemaker ?Z95.0 - Presence of cardiac pacemaker (ICD-10) Hx of sick sinus syndrome ?Z86.79 - Personal history of other diseases of the circulatory system (ICD- 10) Stage 3a chronic kidney disease ?N18.31 - Chronic kidney disease, stage 3a (ICD-10) Candidal intertrigo ?B37.2 - Candidiasis of skin and nail (ICD-10) Pressure injury of heel, stage 1 ?L89.601 - Pressure ulcer of unspecified heel, stage 1 (ICD-10) GERD (gastroesophageal reflux disease) ?K21.9 - Gastro-esophageal reflux disease without esophagitis (ICD-10) Sacral fracture ?S32.10XA - Unspecified fracture of sacrum, initial encounter for closed fracture (ICD-10) Dizziness ?R42 - Dizziness and giddiness (ICD-10) Pressure sore ?L89.90 - Pressure ulcer of unspecified site, unspecified stage (ICD-10) Health care directive on file ?Z78.9 - Other specified health status (ICD-10) Sick sinus syndrome ?I49.5 - Sick sinus syndrome (ICD-10) Surgical History History of amputation of toe ?Z89.429 - Acquired absence of other toe(s), unspecified side (ICD-10) History of appendectomy ?Z90.49 - Acquired absence of other specified parts of digestive tract (ICD- 10) History of hysterectomy ?Z90.710 - Acquired absence of both cervix and uterus (ICD-10) Spinal cord stimulator status ?Z96.89 - Presence of other specified functional implants (ICD-10) History of carpal tunnel release ?Z98.890 - Other specified postprocedural states (ICD-10) History of permanent cardiac pacemaker placement ?Z95.0 - Presence of cardiac pacemaker (ICD-10) History of knee replacement ?Z96.659 - Presence of unspecified artificial knee joint (ICD-10) Family History Father Heart disease Mother Heart disease Breast cancer Son Colon cancer, Onset Age: 47 Social History Narrative: The patient is . 2 children. Limited exercise. Non-smoker. Alcohol rare. No illicit drug use. What is your current living situation?: I presently have a place to live Problems where you live: no known problems Problems where you live details: N/A In the past 12 months, utilities in danger of being shut off: no In past 12 months, lack of transportation kept you from medical appts, meetings, work, or getting things needed for daily living: no In the past 12 mos, have been you worried that your food would run out before you had money to buy more?: never true In the past 12 mos, the food you bought just didn't last and you didn't have money to buy more?: never true Highest level of school completed/degree received: some college, no degree Smoking Status: Never smoker Do you use any of these nicotine containing products: None Second hand tobacco smoke exposure: No How often do you have a drink containing alcohol: never How often do you have six or more drinks on one occasion: Never AUDIT-C Alcohol total score: 0 Non-prescribed substance use: denies use How often does anyone, including family, friends and others, physically hurt you : never How often does anyone, including family, friends and others, insult or talk down to you: never How often does anyone, including family, friends and others, threaten you with harm: never How often does anyone, including family, friends and others, scream or curse at you: never service: No Exam Const: Vital Signs, click to edit/add: Vital Signs - 24 hr 02/12/25 17:03 02/12/25 17:16 02/12/25 17:17 Temperature 98.5 F Pulse Rate 73 67 Pulse Rate [Pulse Oximeter] 67 Respiratory Rate 18 12 12 Blood Pressure 137/52 L Blood Pressure [Ri ght Upper Arm] 158/76 H Pulse Oximetry 98 93 98 Oxygen Delivery Me thod Room Air 02/12/25 17:30 02/12/25 17:32 02/12/25 18:00 Temperature Pulse Rate 61 63 Pulse Rate [Pulse Oximeter] Respiratory Rate 23 24 Blood Pressure 130/81 Blood Pressure [Ri ght Upper Arm] Pulse Oximetry 100 99 Oxygen Delivery Me thod 02/12/25 18:02 02/12/25 18:15 02/12/25 18:30 Temperature Pulse Rate 64 Pulse Rate [Pulse Oximeter] Respiratory Rate 18 15 Blood Pressure 141/121 H Blood Pressure [Ri ght Upper Arm] Pulse Oximetry 85 L Oxygen Delivery Me thod 02/12/25 18:32 02/12/25 18:33 02/12/25 19:00 Temperature Pulse Rate 67 61 67 Pulse Rate [Pulse Oximeter] Respiratory Rate 11 L Blood Pressure 149/50 H Blood Pressure [Ri ght Upper Arm] Pulse Oximetry 81 L 94 Oxygen Delivery Me thod 02/12/25 19:02 02/12/25 19:15 02/12/25 19:30 Temperature Pulse Rate 69 67 Pulse Rate [Pulse Oximeter] Respiratory Rate Blood Pressure 125/52 L Blood Pressure [Ri ght Upper Arm] Pulse Oximetry 97 Oxygen Delivery Me thod 02/12/25 19:32 02/12/25 19:51 02/12/25 20:00 Temperature Pulse Rate 69 76 63 Pulse Rate [Pulse Oximeter] Respiratory Rate Blood Pressure 153/56 H 138/69 Blood Pressure [Ri ght Upper Arm] Pulse Oximetry 93 94 Oxygen Delivery Me thod 02/12/25 20:02 02/12/25 20:03 02/12/25 20:28 Temperature Pulse Rate 63 61 Pulse Rate [Pulse Oximeter] Respiratory Rate 18 11 L Blood Pressure 131/58 L Blood Pressure [Ri ght Upper Arm] Pulse Oximetry 94 94 Oxygen Delivery Me thod Room Air 02/12/25 20:42 02/12/25 20:45 02/12/25 21:00 Temperature Pulse Rate 68 67 Pulse Rate [Pulse Oximeter] Respiratory Rate 14 Blood Pressure Blood Pressure [Ri ght Upper Arm] Pulse Oximetry Oxygen Delivery Me thod 02/12/25 21:02 02/12/25 21:15 Temperature Pulse Rate 63 61 Pulse Rate [Pulse Oximeter] Respiratory Rate 14 Blood Pressure 173/77 H Blood Pressure [Ri ght Upper Arm] Pulse Oximetry 90 90 Oxygen Delivery Me thod Course Vital Signs Vital signs: Initial Vital Signs Temperature 98.5 F 02/12/25 17:03 Temperature Source Temporal Artery Scan 02/12/25 17:03 Pulse Rate 67 02/12/25 17:03 Respiratory Rate 18 02/12/25 17:03 Blood Pressure 158/76 H 02/12/25 17:03 Blood Pressure Mean 103 02/12/25 17:03 Blood Pressure Position Supine 02/12/25 17:03 Pulse Oximetry 98 02/12/25 17:03 Oxygen Delivery Method Room Air 02/12/25 17:03 Vital Signs Temperature 98.5 F 02/12/25 17:03 Pulse Rate 67 02/12/25 17:03 Respiratory Rate 18 02/12/25 17:03 Blood Pressure 158/76 H 02/12/25 17:03 Pulse Oximetry 98 02/12/25 17:03 Oxygen Delivery Method Room Air 02/12/25 17:03 Temperature 98.5 F 02/12/25 17:03 Pulse Rate 61 02/12/25 21:15 Respiratory Rate 14 02/12/25 21:02 Blood Pressure 173/77 H 02/12/25 21:02 Pulse Oximetry 90 02/12/25 21:15 Oxygen Delivery Method Room Air 02/12/25 20:28 Medications Administered Medications: Discontinued Medications Generic Name Dose Route Start Last Admin Trade Name Freq PRN Reason Stop Dose Admin Diphenhydramine HCl 50 mg 02/12/25 19:11 02/12/25 19:21 Diphenhydramine 50 Mg/Ml Inj IVP 02/12/25 19:12 50 mg ONCE ONE Administration Hydrocortisone Sodium Succinate 200 mg 02/12/25 19:11 02/12/25 19:21 Hydrocortisone Sod Succinate 50 Mg/Ml Inj IVP 02/12/25 19:12 200 mg ONCE ONE Administration Medical Decision Making [facility] Narrative Medical decision making narrative: This patient is an 89-year-old female presenting to the emergency department for weakness and confusion. The differential diagnosis of altered mental status is broad and includes infection, electrolyte abnormalities, ACS, dehydration, intercranial abnormality, hypoxia, metabolic causes, hypertensive encephalopathy, toxins, overdose/withdrawal, acute psychiatric illness etc. will order head CT to rule out any intracranial abnormalities. Also order a CBC, CMP, COVID/flu/RSV, urinalysis, magnesium. EKG troponin and BNP ordered due to her lower extremity swelling check for signs of CHF. She had some mild right upper quadrant plain and a gallbladder ultrasound was ordered. Lab work shows no concerning abnormalities other than an a UTI. Rocephin was started. This likely the cause of her symptoms. Her BNP is elevated at 2010. Unsure what baseline is. EKG and troponin showed no concerning abnormalities. Ultrasound showed a dilated common bile duct. CT was done. This shows intrahepatic and extrahepatic biliary dilation. She does have a cholecystectomy. Recommendations: Without of TS which do not show any concerning findings. AST and alk-phos are very mildly elevated. Unlikely to be an obstruction. Does have CT evidence of UTI also. On my review vital signs are stable throughout time in in the emergency department. Oximetry stayed in the mid to high 90s. campus monitor showed no concerning arrhythmias. For lower extremity swelling or will hold off on diuresis at this time and will leave that up to the hospitalist. She is not hypoxic. CT and CTA showed no acute concerning abnormalities. Lab Data Labs: Lab Results 02/12/25 02/12/25 02/12/25 Range/Units 17:40 18:23 18:25 WBC 5.59 (4.50-11.00) K/uL RBC 4.24 (4.00-5.20) m/uL Hgb 12.4 (12.0-16.0) gm/dL Hct 38.5 (33.0-51.0) % MCV 91 (80-100) fL MCH 29 (26-34) pg MCHC 32 (32-36) gm/dL RDW Coeff of Maile 14.5 (11.5-15.5) % Plt Count 172 (140-440) K/uL Neut % (Auto) 54.5 (42.0-72.0) % Lymph % (Auto) 29.5 (20-44) % [place] % (Auto) 10.4 (0.0-11.0) % Eos % (Auto) 4.5 (0.0-7.0) % Baso % (Auto) 0.4 (0.0-3.0) % Neut # (Auto) 3.05 (1.7-7.0) K/uL Lymph # (Auto) 1.65 (0.90-2.90) K/uL Mesa # (Auto) 0.60 (0.00-0.90) K/UL Eos # (Auto) 0.25 (0.00-0.50) K/uL Baso # (Auto) 0.02 (0.00-0.30) K/uL Abs Immat Gran (auto) 0.04 (0.00-0.30) K/uL Imm/Tot Granulo (auto) 0.7 % Sodium 140 (135-149) mmol/L Potassium 4.6 (3.6-5.1) mmol/L Chloride 107 (96-114) mmol/L Carbon Dioxide 25 (20-32) mmol/L Anion Gap 8 (7-15) mEq/L BUN 37 H (7-30) mg/dL Creatinine 1.5 (0.5-1.5) mg/dL Estimated Creat Clear 23.33 Estimated GFR 33 ml/min Glucose 90 (60-115) mg/dL Calcium 9.8 (8.4-10.6) mg/dL Magnesium 1.9 (1.5-2.6) mg/dL Total Bilirubin 0.7 (0.1-1.5) mg/dL AST 39 H (12-35) U/L ALT 32 (4-35) U/L Alkaline Phosphatase 170 H (40-150) U/L Troponin I 0.03 (0.01-0.04) ng/mL NT-Pro-B Natriuret Pep 2010 pg/mL Total Protein 7.1 (6.0-8.3) g/dL Albumin 4.1 (3.3-5.0) g/dL Urine Color (Yellow) Urine Appearance (Clear) Urine pH (5.0-8.5) Ur Specific [place] (1.000-1.030) Urine Protein (Negative) Urine Glucose (UA) (Negative) Urine Ketones (Negative) Urine Blood (Negative) Urine Nitrite (Negative) Urine Bilirubin (Negative) Urine Urobilinogen (0.2-1.0) Ur Leukocyte Esterase (Negative) Urine RBC (0-2) Urine WBC (0-5) Ur Squamous Epith Cells (None-Few) Urine Bacteria (None) SARS-CoV-2 (PCR) Negative SARS-CoV-2 (Negative) Influenza Type A (PCR) Negative PCR FLU A (Negative) Influenza Type B (PCR) Negative PCR FLU B (Negative) RSV (PCR) Negative PCR RSV (Negative) Lab Acknowledgement POC Creatinine 1.7 H (0.6-1.3) mg/dl 02/12/25 02/12/25 Range/Units 19:50 21:06 WBC (4.50-11.00) K/uL RBC (4.00-5.20) m/uL Hgb (12.0-16.0) gm/dL Hct (33.0-51.0) % MCV (80-100) fL MCH (26-34) pg MCHC (32-36) gm/dL RDW Coeff of Maile (11.5-15.5) % Plt Count (140-440) K/uL Neut % (Auto) (42.0-72.0) % Lymph % (Auto) (20-44) % Mesa % (Auto) (0.0-11.0) % Eos % (Auto) (0.0-7.0) % Baso % (Auto) (0.0-3.0) % Neut # (Auto) (1.7-7.0) K/uL Lymph # (Auto) (0.90-2.90) K/uL Mes[place] # (Auto) (0.00-0.90) K/UL Eos # (Auto) (0.00-0.50) K/uL Baso # (Auto) (0.00-0.30) K/uL Abs Immat Gran (auto) (0.00-0.30) K/uL Imm/Tot Granulo (auto) % Sodium (135-149) mmol/L Potassium (3.6-5.1) mmol/L Chloride (96-114) mmol/L Carbon Dioxide (20-32) mmol/L Anion Gap (7-15) mEq/L BUN (7-30) mg/dL Creatinine (0.5-1.5) mg/dL Estimated Creat Clear Estimated GFR ml/min Glucose (60-115) mg/dL Calcium (8.4-10.6) mg/dL Magnesium (1.5-2.6) mg/dL Total Bilirubin (0.1-1.5) mg/dL AST (12-35) U/L ALT (4-35) U/L Alkaline Phosphatase (40-150) U/L Troponin I (0.01-0.04) ng/mL NT-Pro-B Natriuret Pep pg/mL Total Protein (6.0-8.3) g/dL Albumin (3.3-5.0) g/dL Urine Color Yellow (Yellow) Urine Appearance Cloudy A (Clear) Urine pH 7.0 (5.0-8.5) Ur Specific [place] 1.015 (1.000-1.030) Urine Protein 1+ A (Negative) Urine Glucose (UA) Negative (Negative) Urine Ketones 1+ A (Negative) Urine Blood Trace-intact A (Negative) Urine Nitrite Positive A (Negative) Urine Bilirubin Negative (Negative) Urine Urobilinogen 1.0 (0.2-1.0) Ur Leukocyte Esterase 2+ A (Negative) Urine RBC 0-2 (0-2) Urine WBC 10-25 A (0-5) Ur Squamous Epith Cells Moderate A (None-Few) Urine Bacteria Many A (None) SARS-CoV-2 (PCR) (Negative) Influenza Type A (PCR) (Negative) Influenza Type B (PCR) (Negative) RSV (PCR) (Negative) Lab Acknowledgement Test Added POC Creatinine (0.6-1.3) mg/dl Imaging Data US - abdomen: Attestation: I have reviewed the pertinent imaging results. Radiologist's impression: 1. Gallbladder is not definitively visualized. Possible gallbladder filled with echogenic debris versus gas-filled bowel. CT may be considered for further evaluation. 2. Enlarged common bile duct measuring 1.2 centimeter in diameter. Consider correlation with bilirubin levels to assess for obstruction with further evaluation by MRCP as clinically indicated. Dictated by Andrea Zavala MD @ 02/12/2025 6:47:[address] scan abdomen and chest: Attestation: I have reviewed the pertinent imaging results. Radiologist's impression: 1. Significant wall thickening of the bladder with adjacent stranding concerning for UTI/cystitis. 2. Intrahepatic and extrahepatic biliary dilation. Note is also made of pancreatic parenchymal atrophy and ductal dilation. Correlation with LFTs recommended. MRI/MRCP could be considered if there is strong clinical concern for biliary obstruction. 3. Subacute and chronic thoracolumbar and pelvic fractures with no acute osseous abnormality appreciated. Please note that all CT scans at this facility use dose modulation, iterative reconstruction, and/or weight-based dosing when appropriate to reduce radiation dose to as low as reasonably achievable. Dictated by Agustin Pettit MD @ 02/12/2025 9:05:[address] scan - head: Attestation: I have reviewed the pertinent imaging results. Radiologist's impression: 1. No acute intracranial findings. 2. Generalized parenchymal volume loss and moderate chronic small vessel ischemic disease. Please note that all CT scans at this facility use dose modulation, iterative reconstruction, and/or weight-based dosing when appropriate to reduce radiation dose to as low as reasonably achievable. Dictated by Juli Murguia MD @ 02/12/2025 9:17:06 PM CTA head and neck: Attestation: I have reviewed the pertinent imaging results. Radiologist's impression: Preliminary Report: 1. No intracranial proximal large vessel occlusion or significant aneurysm identified. There is essentially origin of the right posterior cerebral artery. Calcified plaque in the bilateral supraclinoid ICAs. 2. Cervical arterial vasculature is patent without evidence of dissection. There is calcified plaque at the bilateral carotid bifurcations without hemodynamically significant stenosis. 3. Tortuosity of the brachiocephalic artery, bilateral proximal common carotid arteries, and proximal left vertebral artery. 4. Subacute versus chronic deformity of the left glenoid. Right chest pacemaker. Dictated by Juli Murguia MD @ 02/12/2025 9:24:17 PM ECG Data Attestation: I personally reviewed and interpreted this ECG as follows: Prior ECG tracings: not available for review Interpretation: Atrial says a ventricular paced rhythm rate 61 beats per minute, normal axis, no ST or T-wave abnormalities. Discharge Plan Discharge Clinical Impression: Acute UTI, Acute alteration in mental status Patient Disposition: Admitted As Observation Condition: Stable
--- OUTSIDE RECORDS SUMMARY | 2025-02-12 17:52 | XMS_ITS | Encounter Summary ---
Author Organization [facility] Address [facility] [place] [address] Care Team Providers Care Jet Ski Mechanic Name Role Phone Chu Cruz PA-C Primary Care Provider Minna Chawla RN Unavailable Unavailable Minna Chawla RN Unavailable Unavailable Chu Cruz PA-C Unavailable Dario Potter MD Unavailable Luis Miguel Woodson MD Unavailable Unavailable Daisy Mejia NP Unavailable Aruna Mart Unavailable Chris Ricketts DPM Unavailable [phone] Chris Ricketts DPM Unavailable [phone] Clem Maynard MD Unavailable [phone] Clem Maynard MD Unavailable [phone] Encounter Details Date Type Department Care Team (Late st Contact Info) Description 12/26/2021 [facility] [address] [id number] Radha Fung, RN Social History [...] Sex Assigned at Female 01/14/2021 7:41 PM [employer] Legal Sex Female 6:11 PM CDT Gender Identity Female 01/14/2021 7:41 PM [employer] Sexual Orientation Straight 01/14/2021 7: 41 PM [employer] COVID-19 Exposure Response Date Recorded In the last month, have you been in contact with someone who was confirmed or suspected to have Coronavirus / COVID-19? No / Unsure 12/12/2021 3:26 PM [employer] documented as of this encounter Plan of [...] documented as of this encounter Care Teams Jet Ski Mechanic Relationship Specialty Start Date End Date Chu Cruz PA-C [address] [address] PCP - General Physician Medical Investigator 07/07/17 Minna Chawla RN [address] [address] Installer Apprentice Diabetes Education 06/30/18 Minna Chawla RN [address] [address] Installer Apprentice Diabetes Education 06/30/18 Chu Cruz PA-C [address] [address] Assigned PCP 11/14/17 Dario Potter MD [address] [place], [place] [id number] [facility] [place] [address] Assigned Musculoskeletal Provider 08/30/20 01/10/22 Luis Miguel Woodson MD Assigned Heart and Vascular Provider 08/30/20 06/26/22 Daisy Mejia NP [address] [place] [address] Assigned Neuroscience Provider 09/07/21 03/05/23 Aruna Mart [address] [place] [id number] Installer Apprentice 01/16/22 Chris Ricketts DPM [address] [place] [address] [place] [address] Assigned Musculoskeletal Provider 01/11/22 12/11/22 Chris Ricketts DPM [address] [place] [address] [place] [address] Assigned Surgical Provider 12/12/22 02/28/24 Clem Maynard MD [address] [place] [phone] Cardiovascular Disease 01/07/23 Clem Maynard MD [address] [place] [phone] Assigned Heart and Vascular Provider 01/16/23 07/30/24 documented as of this encounter
--- OUTSIDE RECORDS SUMMARY | 2025-02-12 17:52 | XMS_ITS | Encounter Summary ---
Author Organization [place] Address [address] [place] [address] Care Team Providers Care Shredder Tender Name Role Phone Chu Cruz PA-C Primary Care Provider Minna Chawla RN Unavailable Unavailable Minna Chawla RN Unavailable Unavailable Chu Cruz PA-C Unavailable Dario Potter MD Unavailable [phone] Luis Miguel Woodson MD Unavailable Unavailable Daisy Mejia NP Unavailable Aruna Mart Unavailable [phone] Chris Ricketts DPM Unavailable [phone] Chris Ricketts DPM Unavailable [phone] Clem Maynard MD Unavailable [phone] Clem Maynard MD Unavailable [phone] Encounter Details Date Type Department Care Team [...] Sex Assigned at Female 01/14/2021 7:41 PM U.S. REVENUE OFFICER Legal Sex Female 6:11 PM CDT Gender Identity Female 01/14/2021 7:41 PM U.S. REVENUE OFFICER Sexual Orientation Straight 01/14/2021 7: 41 PM U.S. REVENUE OFFICER COVID-19 Exposure Response Date Recorded In the last month, have you been in contact with someone who was confirmed or suspected to have Coronavirus / COVID-19? No / Unsure 12/31/2021 11:12 AM U.S. REVENUE OFFICER documented as of this encounter Plan of [...] documented as of this encounter Care Teams Shredder Tender Relationship Specialty Start Date End Date Chu Cruz PA-C [address] [address] PCP - General Physician Film Technician 07/07/17 Minna Chawla RN [address] [address] Liner Checker Diabetes Education 06/30/18 Minna Chawla RN [address] [address] Liner Checker Diabetes Education 06/30/18 Chu Cruz PA-C [address] [address] Assigned PCP 11/14/17 Dario Potter MD [address] [place] [address] Assigned Musculoskeletal Provider 08/30/20 01/10/22 Luis Miguel Woodson MD Assigned Heart and Vascular Provider 08/30/20 06/26/22 Daisy Mejia UPPER LEATHER CUTTER [address] [place] [address] Assigned Neuroscience Provider 09/07/21 03/05/23 Aruna Mart [address] [place] [address] Liner Checker 01/16/22 Chris Ricketts DPM [address] [facility] [place] [address] Assigned Musculoskeletal Provider 01/11/22 12/11/22 Chris Ricketts DPM [address] [facility] [place], [place] [address] Assigned Surgical Provider 12/12/22 02/28/24 Clem Maynard MD [address] [place] [phone] Cardiovascular Disease 01/07/23 Clem Maynard MD [address] [place] [phone] Assigned Heart and Vascular Provider 01/16/23 07/30/24 documented as of this encounter
--- OUTSIDE RECORDS SUMMARY | 2025-02-12 17:52 | XMS_ITS ---
Author Organization [place] Address [address] [place] [address] Care Team Providers Care Oncology Rep Name Role Phone Chu Cruz PA-C Primary Care Provider Minna Chawla RN Unavailable Unavailable Minna Chawla RN Unavailable Unavailable Chu Cruz PA-C Unavailable [phone] Aruna Mart Unavailable [phone] Clem Maynard MD Unavailable [phone] Diabetes Self-Management Education Status:Enrolled (Active) Start date:06/30/2018 Enrollment date:06/30/2018 Case Team Name Relationship Phone Minna Chawla RNpm head cook(Responsible Staff) Continued Care and Services Coordination
--- OUTSIDE RECORDS SUMMARY | 2025-02-12 17:52 | XMS_ITS | Encounter Summary ---
Author Organization [place] Address [facility]0 [place] [address] Care Team Providers Care Logistics Supervisor Name Role Phone Chu Cruz PA-C Primary Care Provider Minna Chawla RN Unavailable Unavailable Minna Chawla RN Unavailable Unavailable Chu Cruz PA-C Unavailable Dario Potter MD Unavailable [phone] Luis Miguel Woodson MD Unavailable Unavailable Matheus Medina MD Unavailable Daisy Mejia NP Unavailable Aruna Mart Unavailable [phone] Chris Ricketts DPM Unavailable [phone] Chris Ricketts DPM Unavailable Clem Maynard MD Unavailable [phone] Clem Maynard MD Unavailable [phone] Reason for Visit * Reason Onset Date Comments Panel Management 06/28/2020 Medicare annual wellness Encounter Details Date Type Department Care Team (Late st Contact Info) Description 06/28/[address] [place] [address] Chu Cruz PA-C [address] [facility] [address] [place] [address] Panel Management (Medicare annual wellness ) Social [...] Sex Assigned at Female 01/14/2021 7:41 PM LICENSED LOAN OFFICER Legal Sex Female 6:11 PM CDT Gender Identity Female 01/14/2021 7:41 PM LICENSED LOAN OFFICER Sexual Orientation Straight 01/14/2021 7: 41 PM LICENSED LOAN OFFICER COVID-19 Exposure Response Date Recorded In [...] Out COVID-19 09/26/2020 09/26/2020 09/27/2020 5:31 PM LICENSED LOAN OFFICER Rule Out COVID-19 05/28/2022 05/28/2022 05/28/2022 8:56 PM CDT Rule Out COVID07/03/2022 07/03/2022 07/03/2022 6:55 PM CDT Assessment Noted Time PHQ-9 Depression Total Score: 16 020 12:50 PM CDT documented as of this encounter Care Teams Logistics Supervisor Relationship Specialty Start Date End Date Chu Cruz PA-C [address] [address] PCP - General Physician Suture Polisher 07/07/17 Minna Chawla, RN [address] [address] Certified Registered Dental Assistant Diabetes Education 06/30/18 Minna Chawla, RN [address] [address] Certified Registered Dental Assistant Diabetes Education 06/30/18 Chu Cruz PA-C [address] [address] Assigned PCP 11/14/17 Dario Potter MD [address] [place], [place] [address] Assigned Musculoskeletal Provider 08/30/20 01/10/22 Luis Miguel Woodson MD Assigned Heart and Vascular Provider 08/30/20 06/26/22 Matheus Medina MD [address] [place], [place] [address] Assigned Surgical Provider 08/30/20 11/30/20 Daisy Mejia NP [address] [address] Assigned Neuroscience Provider 09/07/21 03/05/23 Aruna Mart [address] [facility] [place] [place] [address] Certified Registered Dental Assistant 01/16/22 Chris Ricketts DPM [address] [place] [address] [place] [address] Assigned Musculoskeletal Provider 01/11/22 12/11/22 Chris Ricketts DPM [address] [place] [address] Assigned Surgical Provider 12/12/22 02/28/24 Clem Maynard MD [address] [place] [phone] Cardiovascular Disease 01/07/23 Clem Maynard MD [address] [place] [phone] Assigned Heart and Vascular Provider 01/16/23 07/30/24 documented as of this encounter
--- OUTSIDE RECORDS SUMMARY | 2025-02-12 17:52 | XMS_ITS | Encounter Summary ---
Author Organization [place] Address [address] [place] [address] Care Team Providers Care Genomics Scientist Name Role Phone Chu Cruz PA-C Primary Care Provider Minna Chawla RN Unavailable Unavailable Minna Chawla RN Unavailable Unavailable Chu Cruz PA-C Unavailable [phone] Luis Miguel Woodson MD Unavailable Unavailable Daisy Mejia TRAFFIC DIRECTOR Unavailable Aruna Mart Unavailable [phone] Chris Ricketts DPM Unavailable Chris Ricketts DPM Unavailable Clem Maynard MD Unavailable Clem Maynard MD Unavailable Encounter Details Date Type Department Care Team (Late st Contact Info) Description 01/16/2022 [facility] Diabetes Education [address] [place] [address] Aruna Mart [address] [place] [id number] Social History Tobacco Use Types Packs/Day Years Used Date Smoking Tobacco: Former Smokeless Tobacco: Never Comments:only 6 months use Alcohol Use Standard Drinks/Week Comments Yes 0 (1 standard drink = 0.6 oz pur e alcohol) rarely PHQ-2 Answer Date Recorded PHQ-2 Score 2 08/15/2021 Comments No Sex and Gender Information Value Date Recorded Sex Assigned at Female 01/14/2021 7:41 PM TELEVISION AUDIO ENGINEER Legal Sex Female 6:11 PM CDT Gender Identity Female 01/14/2021 7:41 PM TELEVISION AUDIO ENGINEER Sexual Orientation Straight 01/14/2021 7: 41 PM TELEVISION AUDIO ENGINEER COVID-19 Exposure Response Date Recorded In the last month, have you been in contact with someone who was confirmed or suspected to have Coronavirus / COVID-19? No / Unsure 01/07/2022 1:45 PM TELEVISION AUDIO ENGINEER documented as of this encounter Plan [...] documented as of this encounter Care Teams Genomics Scientist Relationship Specialty Start Date End Date Chu Cruz PA-C [address] [address] PCP - General Physician Escort Service Attendant 07/07/17 Minna Chawla RN [address] [address] Dynamics Ax Developer Diabetes Education 06/30/18 Minna Chawla RN [address] [address] Dynamics Ax Developer Diabetes Education 06/30/18 Chu Cruz PA-C [address] [address] Assigned PCP 11/14/17 Luis Miguel Woodson MD Assigned Heart and Vascular Provider 08/30/20 06/26/22 Daisy Mejia NP [address] [place] [address] Assigned Neuroscience Provider 09/07/21 03/05/23 Aruna Mart 9 [place] [address] Dynamics Ax Developer 01/16/22 Chris Ricketts DPM [address] [place] [address] [place] [address] Assigned Musculoskeletal Provider 01/11/22 12/11/22 Chris Ricketts DPM 9 [facility] [place] [address] Assigned Surgical Provider 12/12/22 02/28/24 Clem Maynard MD [address] [place] [phone] Cardiovascular Disease 01/07/23 Clem Maynard MD [address] [place] [phone] Assigned Heart and Vascular Provider 01/16/23 07/30/24 documented as of this encounter
--- OUTSIDE RECORDS SUMMARY | 2025-02-12 17:52 | XMS_ITS | Encounter Summary ---
Author Organization [place] Address [address] [place] [address] Care Team Providers Care Communications Department Chair Name Role Phone Chu Cruz PA-C Primary Care Provider Minna Chawla RN Unavailable Unavailable Minna Chawla RN Unavailable Unavailable Chu Cruz PA-C Unavailable Dario Potter MD Unavailable [phone] Luis Miguel Woodson MD Unavailable Unavailable Daisy Mejia NP Unavailable [phone] Aruna Mart Unavailable Chris Ricketts DPM Unavailable [phone] Chris Ricketts DPM Unavailable Clem Maynard MD Unavailable [phone] Clem Maynard MD Unavailable [phone] Encounter Details Date Type Department Care Team (Late st Contact Info) Description 12/24/2021 [facility] Medical Advice [facility] Scheduling [address] [place] [address] Radha Lord Social History Tobacco [...] Sex Assigned at Female 01/14/2021 7:41 PM CHILDREN LIBRARIAN Legal Sex Female 6:11 PM CDT Gender Identity Female 01/14/2021 7:41 PM CHILDREN LIBRARIAN Sexual Orientation Straight 01/14/2021 7: 41 PM CHILDREN LIBRARIAN COVID-19 Exposure Response Date Recorded In the last month, have you been in contact with someone who was confirmed or suspected to have Coronavirus / COVID-19? No / Unsure 12/12/2021 3:26 PM CHILDREN LIBRARIAN documented as of this encounter Plan of [...] documented as of this encounter Care Teams Communications Department Chair Relationship Specialty Start Date End Date Chu Cruz PA-C [address] [address] PCP - General Physician Electromagnet Crane Operator 07/07/17 Minna Chawla RN [address] [address] Mineral Economist Diabetes Education 06/30/18 Minna Chawla RN [address] [address] Mineral Economist Diabetes Education 06/30/18 Chu Cruz PA-C [address] [address] Assigned PCP 11/14/17 Dario Potter MD [address] [place] [address] [place] [address] Assigned Musculoskeletal Provider 08/30/20 01/10/22 Luis Miguel Woodson MD Assigned Heart and Vascular Provider 08/30/20 06/26/22 Daisy Mejia CLINICAL TRAINER [address] [place] [address] Assigned Neuroscience Provider 09/07/21 03/05/23 Aruna Mart [address] [place] [address] Mineral Economist 01/16/22 Chris Ricketts DPM [address] [place] [address] Assigned Musculoskeletal Provider 01/11/22 12/11/22 Chris Ricketts DPM [address] [place], [place] [address], [place] [address] Assigned Surgical Provider 12/12/22 02/28/24 Clem Maynard MD [address] [place] [phone] Cardiovascular Disease 01/07/23 Clem Maynard MD [address] [place] [phone] Assigned Heart and Vascular Provider 01/16/23 07/30/24 documented as of this encounter
--- OUTSIDE RECORDS SUMMARY | 2025-02-12 17:52 | XMS_ITS | Encounter Summary ---
Author Organization [place] Address [facility] [place] [address] Care Team Providers Care Marketing Communications Associate Name Role Phone Chu Cruz PA-C Primary Care Provider Minna Chawla RN Unavailable Unavailable Minna Chawla RN Unavailable Unavailable Chu Cruz PA-C Unavailable [phone] Dario Potter MD Unavailable Luis Miguel Woodson MD Unavailable Unavailable Daisy Mejia NP Unavailable Aruna Mart Unavailable Chris Ricketts DPM Unavailable [phone] Chris Ricketts DPM Unavailable Clem Maynard MD Unavailable [phone] Clem Maynard MD Unavailable [phone] Reason for Visit * Reason Onset Date Comments Prior Auth - Medication 12/11/2021 insulin aspart prot & aspart (NOVOLOG MIX 70/30 PEN) (70-30) 100 UNIT/ML pen Encounter Details Date Type Department Care Team (Late st Contact Info) Description 12/11/[address] [place] [address] Chu Cruz PA-C [address] [facility] [address] [place] [address] Prior Auth - Medication (insulin aspart prot [...] Sex Assigned at Female 01/14/2021 7:41 PM VENTILATION EQUIPMENT TENDER Legal Sex Female 6:11 PM CDT Gender Identity Female 01/14/2021 7:41 PM VENTILATION EQUIPMENT TENDER Sexual Orientation Straight 01/14/2021 7: 41 PM VENTILATION EQUIPMENT TENDER COVID-19 Exposure Response Date Recorded In the last month, have you been in contact with someone who was confirmed or suspected to have Coronavirus / COVID-19? No / Unsure 12/12/2021 3:26 PM VENTILATION EQUIPMENT TENDER documented as of this encounter Miscellaneous Notes * Telephone Encounter - Mable Sexton - 12/24/2021 8:46 AM CST Unable to reach this patient would you like to compose a letter? ILATION EQUIPMENT TENDER * Telephone Encounter - Mable Sexton - 12/22/2021 9:30 AM CST lmtc ILATION EQUIPMENT TENDER * Telephone Encounter - Mable Sexton - 12/19/2021 12:22 PM CST Left message to return call. ILATION EQUIPMENT TENDER * Telephone Encounter - Mable Sexton - 12/18/2021 4:34 PM CST mychart message sent to the patient with provider questions. ILATION EQUIPMENT TENDER * Telephone Encounter - Chu Cruz PA-C - 12/18/2021 2:38 PM VENTILATION EQUIPMENT TENDER It looks like the Novolog insulin pen was not covered for Pat. Can you see exactly what pen she hasthat she has been using? I did send over a refill of the Humulin 70/30 suspension/vials for now. Please see if she was able to start the Jardiance yet and if her glucose has been improving. Thanks. Chu Cruz PA-C ILATION EQUIPMENT TENDER * Telephone Encounter - Cuate Cook - [...] letter of medical necessity with clinical reason. ILATION EQUIPMENT TENDER * Telephone Encounter - Cuate Cook - 12/18/2021 8:11 AM CST Images from the original note were not included. Central Prior Authorization Team PA Initiation Medication: insulin aspart prot & aspart (NOVOLOG MIX 70/30 PEN) (70-30) 100 UNIT/ML pen Insurance Company: [employer] ([facility]) - Pharmacy Filling the Rx: [facility] [address] [place] [address] Filling Pharmacy Filling Pharmacy Fax: Start Date: 12/18/2021 ILATION EQUIPMENT TENDER * Telephone Encounter - Ru Cruz - 12/11/2021 5:18 PM CST Prior Authorization Retail Medication Request Medication/Dose: insulin aspart prot & aspart (NOVOLOG MIX 70/30 PEN) (70-30) 100 UNIT/ML pen ICD code (if different than what is on RX): Previously Tried and Failed: Rationale: Insurance Name: Insurance ID: Pharmacy Information (if different than what is on RX) Name: Phone: ILATION EQUIPMENT TENDER documented in this encounter Plan of Treatment [...] documented as of this encounter Care Teams Marketing Communications Associate Relationship Specialty Start Date End Date Chu Cruz PA-C [address] [address] PCP - General Physician Glaze Handler 07/07/17 Minna Chawla RN [address] [address] Brinell Tester Diabetes Education 06/30/18 Minna Chawla RN [address] [address] Brinell Tester Diabetes Education 06/30/18 hCu Cruz PA-C [address] [address] Assigned PCP 11/14/17 Dario Potter MD [address] [facility] [place], [place] [address] Assigned Musculoskeletal Provider 08/30/20 01/10/22 Luis Miguel Woodson MD Assigned Heart and Vascular Provider 08/30/20 06/26/22 Daisy Mejia ASSOCIATE DIRECTOR OF SALES [address] [place] [address] Assigned Neuroscience Provider 09/07/21 03/05/23 Aruna Mart [address] [place] [address], [place] [address] Brinell Tester 01/16/22 Chris Ricketts DPM [address] [place] [address] [place] [address] Assigned Musculoskeletal Provider 01/11/22 12/11/22 Chris Ricketts DPM 9 [facility] [place] [address] Assigned Surgical Provider 12/12/22 02/28/24 Clem Maynard MD [address] [place] [phone] Cardiovascular Disease 01/07/23 Clem Maynard MD [address] [place] [phone] Assigned Heart and Vascular Provider 01/16/23 07/30/24 documented as of this encounter
--- OUTSIDE RECORDS SUMMARY | 2025-02-12 17:52 | XMS_ITS | Encounter Summary ---
Author Organization [place] Address [facility] [place] [address] Care Team Providers Care Radiotelegraph Operator Servicer Name Role Phone Chu Cruz PA-C Primary Care Provider Minna Chawla RN Unavailable Unavailable Minna Chawla RN Unavailable Unavailable Chu Cruz PA-C Unavailable Luis Miguel Woodson MD Unavailable Unavailable Daisy Mejia PATIENT APPOINTMENT COORDINATOR Unavailable [phone] Aruna Mart Unavailable Chris Ricketts DPM Unavailable Chris Ricketts DPM Unavailable Clem Maynard MD Unavailable [phone] Clem Maynard MD Unavailable Reason for Visit * Reason Onset Date Comments Diabetes 01/19/2022 [facility] [employer] Antoni 2 Coverage Encounter Details Date Type Department Care Team (Late Contact Info) Description 01/19/2022 Telephone [facility] [address] [facility] [address] [place] [phone] Missy [place] MD [address] [place], [place] [address] Diabetes (Freestyle Antoni 2 Coverage) Social History [...] Sex Assigned at Female 01/14/2021 7:41 PM CONTINUOUS MINING MACHINE LODE MINER Legal Sex Female 6:11 PM CDT Gender Identity Female 01/14/2021 7:41 PM CONTINUOUS MINING MACHINE LODE MINER Sexual Orientation Straight 01/14/2021 7: 41 PM CONTINUOUS MINING MACHINE LODE MINER COVID-19 Exposure Response Date Recorded In the last month, have you been in contact with someone who was confirmed or suspected to have Coronavirus / COVID-19? No / Unsure 01/07/2022 1:45 PM CONTINUOUS MINING MACHINE LODE MINER documented as of this encounter Miscellaneous Notes * Telephone Encounter - Hamida Echeverria - 01/19/2022 4:01 PM CDT Patient's insurance plan restricts patient to fill Freestyle Antoni 2 CGM at another pharmacy. Please have order sent to pharmacy listed below: Insurance Plan: [employer] [facility] Part D Pharmacy: [facility] Patient Notified?: yes Thank you, [facility] Pharmacy Team [facility] [address] [place] [id number] Pool: Pharm Diabetes documented in this encounter [...] documented as of this encounter Care Teams Radiotelegraph Operator Servicer Relationship Specialty Start Date End Date Chu Cruz PA-C [address] [address] PCP - General Physician Internal Auditor 07/07/17 Minna Chawla, RN [address] [place] [address] Guide Escort Diabetes Education 06/30/18 Minna Chawla, RN [address] [place] [address] Guide Escort Diabetes Education 06/30/18 Chu Cruz PA-C [address] [address] Assigned PCP 11/14/17 Luis Miguel Woodson MD Assigned Heart and Vascular Provider 08/30/20 06/26/22 Daisy Mejia NP [address] [facility] [address] [place], [place] [address] Assigned Neuroscience Provider 09/07/21 03/05/23 Aruna Mart [address] [place] [address] Guide Escort 01/16/22 Chris Ricketts DPM [address] [place] [address] [place] [address] Assigned Musculoskeletal Provider 01/11/22 12/11/22 Chris Ricketts DPM [address] [place] [address] [place] [address] Assigned Surgical Provider 12/12/22 02/28/24 Clem Maynard MD [address] [place] [phone] Cardiovascular Disease 01/07/23 Clem Mayanrd MD [address] [place] [phone] Assigned Heart and Vascular Provider 01/16/23 07/30/24 documented as of this encounter
--- OUTSIDE RECORDS SUMMARY | 2025-02-12 17:53 | XMS_ITS | Encounter Summary ---
Author Organization [facility] Address [address] [place] [address] Care Team Providers Care Wind Power Project Manager Name Role Phone Chu Cruz PA-C Primary Care Provider Minna Chawla RN Unavailable Unavailable Minna Chawla RN Unavailable Unavailable Chu Cruz PA-C Unavailable [phone] Lisa Riggs RN Unavailable Dario Potter MD Unavailable Luis Miguel Woodson MD Unavailable Unavailable Matheus Medina MD Unavailable Daisy Mejia PALLETISER OPERATOR Unavailable Aruna Mart Unavailable [phone] Chris Ricketts DPM Unavailable [phone] Chris Ricketts DPM Unavailable [phone] Clem Maynard MD Unavailable [phone] Clem Maynard MD Unavailable [phone] Reason for Visit * Reason Onset Date Comments [facility] 07[facility]2019 Encounter Details Date Type Department Care Team (Late st Contact Info) Description 07/20/[address] [facility] [address] [facility] [address] [place] [address] Chu Cruz PA-C [address] [facility] [address] [place] [address] [facility] Social History Tobacco Use Types Packs/Day Years Used Date Smoking Tobacco: Former Smokeless Tobacco: Never Comments:only 6 months use Alcohol Use Standard Drinks/Week Comments Yes 0 (1 standard drink = 0.6 oz pur e alcohol) rarely PHQ-2 Answer Date Recorded PHQ-2 Score 2 01/26/2019 Comments No Sex and Gender Information Value Date Recorded Sex Assigned at Female 01/14/2021 7:41 PM STRUCTURAL FITTER Legal Sex Female 6:11 PM CDT Gender Identity Female 01/14/2021 7:41 PM STRUCTURAL FITTER Sexual Orientation Straight 01/14/2021 7: 41 PM STRUCTURAL FITTER documented as of this encounter Miscellaneous Notes * Telephone Encounter - Shannen Kim MA - 07/20/2019 3:47 PM CDT FYI: [...] Not give Insulin if Pre-Meal BG less dlsw730. For Pre-Meal BG 150 - 199 give [...] Out COVID-19 09/26/2020 09/26/2020 09/27/2020 5:31 PM STRUCTURAL FITTER Rule Out COVID-19 05/28/2022 05/28/2022 05/28/2022 8:56 PM CDT Rule Out COVID-19 07/03/2022 07/03/2022 07/03/2022 6:55 PM CDT Assessment Noted Time PHQ-9 Depression Total Score: 3 01/28/20 19 7:06 AM CDT documented as of this encounter Care Teams Wind Power Project Manager Relationship Specialty Start Date End Date Chu Cruz PA-C [address] [address] PCP - General Physician Costing Manager 07/07/17 Minna Chawla RN [address] [address] Fertilizing Machine Operator Diabetes Education 06/30/18 Minna Chawla RN [address] [address] Fertilizing Machine Operator Diabetes Education 06/30/18 Chu Cruz PA-C [address] [id number] Assigned PCP 11/14/17 Lisa Riggs, RN Clinic Prepress Operator Primary Care - CC 06/14/2006/16 Dario Potter MD [address] [place], [place] [address] Assigned Musculoskeletal Provider 08/30/20 01/10/22 Luis Miguel Woodson MD Assigned Heart and Vascular Provider 08/30/20 06/26/22 Matheus Medina MD [address] [place] [address] Assigned Surgical Provider 08/30/20 11/30/20 Daisy Mejia, PALLETISER OPERATOR [address] [address] Assigned Neuroscience Provider 09/07/21 03/05/23 Aruna Mart [address] [place] [address] Fertilizing Machine Operator 01/16/22 Chris Ricketts DPM [address] [place] [address] [place] [address] Assigned Musculoskeletal Provider 01/11/22 12/11/22 Chris Ricketts DPM [address] [place] [address] [place] [address] Assigned Surgical Provider 12/12/22 02/28/24 Clem Maynard MD [address] [place] [id number] Cardiovascular Disease 01/07/23 Clem Maynard MD [address] [place] [id number] Assigned Heart and Vascular Provider 01/16/23 07/30/24 documented as of this encounter
--- OUTSIDE RECORDS SUMMARY | 2025-02-12 17:53 | XMS_ITS | Encounter Summary ---
Author Organization [facility] Address [address] [place] [address] Care Team Providers Care Chemical Production Engineer Name Role Phone Chu Cruz PA-C Primary Care Provider Minna Chawla RN Unavailable Unavailable Minna Chawla RN Unavailable Unavailable Chu Cruz PA-C Unavailable Lisa Riggs RN Unavailable Dario Potter MD Unavailable Luis Miguel Woodson MD Unavailable Unavailable Matheus Medina MD Unavailable Daisy Mejia WRAPPER STRIPPER Unavailable Aruna Mart Unavailable Chris Ricketts DPM Unavailable Chris Ricketts DPM Unavailable [phone] Clem Maynard MD Unavailable [phone] Clem Maynard MD Unavailable [phone] Reason for Visit * Reason Comments Home Care/Hospice Encounter Details Date Type Department Care Team (Late st Contact Info) Description 08/04/2019 Documentation Only [facility] [address] [facility] [address] [place] [address] Chu Cruz PA-C [address] [facility] [address] [place] [address] Home Care[facility] Social History Tobacco Use Types Packs/Day Years Used Date Smoking Tobacco: Former Smokeless Tobacco: Never Comments:only 6 months use Alcohol Use Standard Drinks/Week Comments Yes 0 (1 standard drink = 0.6 oz pur e alcohol) rarely PHQ-2 Answer Date Recorded PHQ-2 Score 2 01/26/2019 Comments No Sex and Gender Information Value Date Recorded Sex Assigned at Female 01/14/2021 7:41 PM EDGE BURNISHER Legal Sex Female 6:11 PM CDT Gender Identity Female 01/14/2021 7:41 PM EDGE BURNISHER Sexual Orientation Straight 01/14/2021 7: 41 PM EDGE BURNISHER documented as of this encounter Miscellaneous Notes [...] Out COVID-19 09/26/2020 09/26/2020 09/27/2020 5:31 PM EDGE BURNISHER Rule Out COVID-19 05/28/2022 05/28/2022 05/28/2022 8:56 PM CDT Rule Out COVID-19 07/03/2022 07/03/2022 07/03/2022 6:55 PM CDT Assessment Noted Time PHQ-9 Depression Total Score: 3 01/28/20 19 7:06 AM CDT documented as of this encounter Care Teams Chemical Production Engineer Relationship Specialty Start Date End Date Chu Cruz PA-C [address] [facility] [address] [place] [address] PCP - General Physician Academic Advisor 07/07/17 Minna Chawla RN [address] [address] Upholsterer Apprentice Diabetes Education 06/30/18 Minna Chawla RN [address] [address] Upholsterer Apprentice Diabetes Education 06/30/18 Chu Cruz PA-C [address] [address] Assigned PCP 11/14/17 Lisa Riggs RN Clinic Automatic Outsole Cutter Primary Care - CC 06/14/2006/16 Dario Potter MD [address] [place] [id number] Assigned Musculoskeletal Provider 08/30/20 01/10/22 Luis Miguel Woodson MD Assigned Heart and Vascular Provider 08/30/20 06/26/22 Matheus Medina MD [address] [place] [address] Assigned Surgical Provider 08/30/20 11/30/20 Daisy Mejia NP [address] [address] Assigned Neuroscience Provider 09/07/21 03/05/23 Aruna Mart [address] [place] [address] Upholsterer Apprentice 01/16/22 Chris Ricketts DPM [address] [place] [address] [place] [address] Assigned Musculoskeletal Provider 01/11/22 12/11/22 Chris Ricketts DPM [address] [place] [address] [place] [address] Assigned Surgical Provider 12/12/22 02/28/24 Clem Maynard MD [address] [place] [phone] Cardiovascular Disease 01/07/23 Clem Maynard MD [address] [place] [phone] Assigned Heart and Vascular Provider 01/16/23 07/30/24 documented as of this encounter
--- OUTSIDE RECORDS SUMMARY | 2025-02-12 17:53 | XMS_ITS | Encounter Summary ---
Author Organization [facility] Address [address] [place] [address] Care Team Providers Care Radiological Health Specialist Name Role Phone Chu Cruz PA-C Primary Care Provider Minna Chawla RN Unavailable Unavailable Minna Chawla RN Unavailable Unavailable Chu Cruz PA-C Unavailable Lisa Riggs RN Unavailable Dario Potter MD Unavailable [phone] Luis Miguel Woodson MD Unavailable Unavailable Matheus Medina MD Unavailable [phone] Daisy Mejia DRAWING IN MACHINE TENDER Unavailable Aruna Mart Unavailable Chris Ricketts DPM Unavailable Chris Ricketts DPM Unavailable Clem Maynard MD Unavailable [phone] Clem Maynard MD Unavailable [phone] Reason for Visit * Reason Comments Home Care/Hospice Encounter Details Date Type Department Care Team (Late st Contact Info) Description 07/24/2019 Documentation Only [facility] [address] [place] [address] Chu Cruz PA-C [address] [address] Home Care[facility] Social History Tobacco Use Types Packs/Day Years Used Date Smoking Tobacco: Former Smokeless Tobacco: Never Comments:only 6 months use Alcohol Use Standard Drinks/Week Comments Yes 0 (1 standard drink = 0.6 oz pur e alcohol) rarely PHQ-2 Answer Date Recorded PHQ-2 Score 2 01/26/2019 Comments No Sex and Gender Information Value Date Recorded Sex Assigned at Female 01/14/2021 7:41 PM NURSE SPECIALIST Legal Sex Female 6:11 PM CDT Gender Identity Female 01/14/2021 7:41 PM NURSE SPECIALIST Sexual Orientation Straight 01/14/2021 7: 41 PM NURSE SPECIALIST documented as of this encounter Plan of Treatment Not on file documented as of this encounter Visit Diagnoses Not on filedocumented in this encounter Additional Health Concerns Infection Onset Date Last Indicated Resolved Time Rule Out COVID-19 09/26/2020 09/26/2020 09/27/2020 5:31 PM NURSE SPECIALIST Rule Out COVID-19 05/28/2022 05/28/2022 05/28/2022 8:56 PM CDT Rule Out COVID-19 07/03/2022 07/03/2022 07/03/2022 6:55 PM CDT Assessment Noted Time PHQ-9 Depression Total Score: 3 01/28/20 19 7:06 AM CDT documented as of this encounter Care Teams Radiological Health Specialist Relationship Specialty Start Date End Date Chu Cruz PA-C [address] [address] PCP - General Physician Clay Preparation Supervisor 07/07/17 Minna Chawla, RN [address] [address] Sole Leveler Diabetes Education 06/30/18 Minna Chawla RN [address] [address] Sole Leveler Diabetes Education 06/30/18 Chu Cruz PA-C [address] [facility] 100 [place] [address] Assigned PCP 11/14/17 Lisa Riggs, RN Clinic Loan Administrator Primary Care - CC 06/14/2006/16 Dario Potter MD [address] [place] [address] Assigned Musculoskeletal Provider 08/30/20 01/10/22 Luis Miguel Woodson MD Assigned Heart and Vascular Provider 08/30/20 06/26/22 Matheus Medina MD [address] [place], [place] [address] Assigned Surgical Provider 08/30/20 11/30/20 Daisy Mejia, DRAWING IN MACHINE TENDER [address] [facility] [address] [place], [place] [address] Assigned Neuroscience Provider 09/07/21 03/05/23 Aruna Mart [address] [place] [address] Sole Leveler 01/16/22 Chris Ricketts DPM [address] [place] [address] [address] [place] [id number] Assigned Musculoskeletal Provider 01/11/22 12/11/22 Chris Ricketts DPM [address] [place] [address] [address] [place] [address] Assigned Surgical Provider 12/12/22 02/28/24 Clem Maynard MD [address] [place] [phone] Cardiovascular Disease 01/07/23 Clem Maynard MD [address] [place] [phone] Assigned Heart and Vascular Provider 01/16/23 07/30/24 documented as of this encounter
--- OUTSIDE RECORDS SUMMARY | 2025-02-12 17:53 | XMS_ITS | Encounter Summary ---
Author Organization [facility] Address [address] [facility] [place] [address] Care Team Providers Care Advertising Project Manager Name Role Phone Chu Cruz PA-C Primary Care Provider Minna Chawla RN Unavailable Unavailable Minna Chawla RN Unavailable Unavailable Chu Cruz PA-C Unavailable [phone] Dario Potter MD Unavailable Luis Miguel Woodson MD Unavailable Unavailable Daisy Mejia NP Unavailable Aruna Mart Unavailable [phone] Chris Ricketts DPM Unavailable [phone] Chris Ricketts DPM Unavailable Clem Maynard MD Unavailable Clem Maynard MD Unavailable [phone] Reason for Visit * Reason Comments Home Care/Hospice Encounter Details Date Type Department Care Team (Late st Contact Info) Description 03/11/2021 Documentation Only [facility] [address] [place] [address] Chu Cruz PA-C [address] [place] [address] Home Care/Hospice Social History Tobacco [...] Sex Assigned at Female 01/14/2021 7:41 PM GINNER HELPER Legal Sex Female 6:11 PM CDT Gender Identity Female 01/14/2021 7:41 PM GINNER HELPER Sexual Orientation Straight 01/14/2021 7: 41 PM GINNER HELPER COVID-19 Exposure Response Date Recorded In [...] documented as of this encounter Care Teams Advertising Project Manager Relationship Specialty Start Date End Date Chu Cruz PA-C [address] [address] PCP - General Physician Tree Surgeon 07/07/17 Minna Chawla RN [address] [address] Senior Data Warehouse Architect Diabetes Education 06/30/18 Minna Chawla RN [address] [address] Senior Data Warehouse Architect Diabetes Education 06/30/18 Chu Cruz PA-C [address] [place] [address] [address] [place] [address] Assigned PCP 11/14/17 Dario Potter MD [address] [place] [address] [address] [facility] [place] [address] Assigned Musculoskeletal Provider 08/30/20 01/10/22 Luis Miguel Woodson MD Assigned Heart and Vascular Provider 08/30/20 06/26/22 Daisy Mejia NP [address] [facility] [address] [facility] [address] [place] [address] Assigned Neuroscience Provider 09/07/21 03/05/23 Aruna Mart [address] [place] [address] Senior Data Warehouse Architect 01/16/22 Chris Ricketts DPM [address] [place] [address] [place] [address] Assigned Musculoskeletal Provider 01/11/22 12/11/22 Chris Ricketts DPM [address] [place] [address] [place] [address] Assigned Surgical Provider 12/12/22 02/28/24 Clem Maynard MD [address] [place] [phone] Cardiovascular Disease 01/07/23 Clem Maynard MD [address] [place] [phone] Assigned Heart and Vascular Provider 01/16/23 07/30/24 documented as of this encounter
--- OUTSIDE RECORDS SUMMARY | 2025-02-12 17:53 | XMS_ITS | Clinical Summary ---
Author Organization [facility] Address [address] [place] [address] Care Team Providers Care Convention Services Director Name Role Phone Chu Cruz PA-C Primary Care Provider Minna Chawla RN Unavailable Unavailable Minna Chawla RN Unavailable Unavailable Chu Cruz PA-C Unavailable [phone] Aruna Mart Unavailable [phone] Clem Maynard MD Unavailable [phone] Allergies Active Allergy Reactions Criticality Noted Date [...] (ELIQUIS) 2.5 MG tabletIndications :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 fibrillation (H),manager intermediate current use of anticoagulants with INR goal [...] 90 tablet 04/29/20 23 Active nystatin (MYCOSTATIN) 356431 UNIT/GM external powderIndications :Intertrigo Apply topically 2 [...] tablet 12/01/19 24 Active Continuous Blood Gluc Field Ironworker (DEXCOM G7 SOIL FERTILITY SPECIALIST) ROYCE 1 Application by In Vitro route [...] (12/19/2020): Added automatically from request for surgery [id number] Pacemaker at end of battery life 12/19/2020 Overview (12/19/2020): Added automatically from request for surgery [id number] Thrombocytopenia 11/04/2020 Stage 3a chronic kidney disease 11/04/2020 Acute pain of left knee 08/01/2020 Pain in joint involving ankle and foot, left History of total left knee replacement 0 Hypotension 06/11/2020 Syncope 06/10/2020 Avulsion fracture of distal fibula 06/10/2020 Acute cystitis without hematuria 06/10/2020 Osteopenia, unspecified location 03/28/2019 Dyspnea 12/20/2018 Assessment & Plan (12/20/2018 8:21 PM DECK CADET): Associate with chest pain with no hypoxemia [...] statin Assessment & Plan (11/12/2016 3:19 PM DECK CADET): Weights going up Start lasix 20mg daily Assessment & Plan (10/26/2016 8:58 AM DECK CADET): Slight worsening SOB . Weights have increased since last visit. Will add lasix - 20mg daily for the next week. Recheck in 1 week. Continue EMILE , b- ava and statin 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 fibrillation with RVR 10/26/2016 Chest pain 10/26/2016 Atypical chest pain 09/17/2016 Assessment & Plan (12/20/2018 8:22 PM DECK CADET): Presenting with pain that started at 530 [...] morning. 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, placed initially for AV dissociation Continue outpatient management Elevated serum creatinine 09/17/2016 Assessment & Plan (09/22/2016 1:46 PM DECK CADET): Had elevated serum creatinine during the recent Hospitalization Recheck chemistries today Avoid Ibuprofen and Alleve OTC Hyperlipidemia LDL goal <100 07/23/2016 Assessment & Plan (09/22/2016 1:47 PM DECK CADET): Continue low intesity statin 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 Assessment & Plan (12/20/2018 8:22 PM DECK CADET): Poorly controlled taking insulin Continue home dosing, managed with sliding scale coverage Assessment & Plan (09/22/2016 1:36 PM DECK CADET): On NPH insulin 30 Unit BID and Sliding scale insulin -Novolog for meals Sugars well controlled Recheck A1c in 3 months Chronic low back pain 06/26/2016 Overview (09/22/2016): [facility] [place] Hydrocodone Assessment & Plan (12/20/2018 8:23 PM DECK CADET): Managed by pain management, had back stimulator replaced recently, taking daily Percocet Continue Percocet as needed, continue outpatient management by pain management Assessment & Plan (09/22/2016 1:41 PM DECK CADET): Chronic low back pain since 1977 when she had a back injury s/p surgeries x5 on lumbar spine Has chronic pain from this Uses Lyrica -150mg BID Uses hydrocodone 2 Times a day daily - followed by [facility] in [place] since this month . 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 fibrillation 06/26/2016 Assessment & Plan (12/20/2018 8:21 PM DECK CADET): Currently rate controlled with pacemaker in place [...] her Assessment & Plan (11/12/2016 3:15 PM DECK CADET): Rate controlled since hospital discharge Continue amiodarone Lisinopril dose reduced to 2.5mg during the hospital stay Continue metoprolol -25mg BID Assessment & Plan (09/22/2016 1:39 PM DECK CADET): Rate controlled She has been taking 12.5 mg BID of metoprolol Increase to 25mg BID Continue coumadin for anticoagulation BP at goal Moderate recurrent major depression 06/26/2016 Assessment & Plan (03/11/2017 3:55 PM CDT): In remission Continue zoloft Recheck in 6 months Assessment & Plan (11/12/2016 3:17 PM DECK CADET): Has not been well controlled - Advise to start increasing dose to 150mg daily Assessment & Plan (10/26/2016 8:51 AM DECK CADET): Worsening symptoms Increase zoloft to 150mg daily Recheck in 3 months Assessment & Plan (09/22/2016 1:45 PM DECK CADET): Symptoms well controlled on sertraline Continue Zoloft -100mg daily Reviewed Phq-9 manager intermediate current use of anticoagulant therapy 0 06/26/2016 Assessment & Plan (12/20/2018 8:23 PM DECK CADET): Somewhat subtherapeutic with an INR of 1.86 [...] Date Type Department Care Team Description 12/13/2024 [facility] Medical Advice [address] [place] [id number] Joanna Ascencio, [place] 12/13/2024 Telephone [facility] [address] [facility] [address] [place] [phone] Chu Cruz PA-C Outreach from Last 3 [...] 08/27/2023 TDAP (Adacel,Boostrix) 05/16/2021 Zoster recombinant adjuvanted (Shingrix) 023 Family History Medical History Relation Comments [...] Sex Assigned at Female 01/14/2021 7:41 PM DECK CADET Legal Sex Female 6:11 PM CDT Gender Identity Female 01/14/2021 7:41 PM DECK CADET Sexual Orientation Straight 01/14/2021 7: 41 PM DECK CADET Last Filed Vital Signs Vital Sign Reading [...] this topic Medical Devices Implanted Type Area Circular Knitter Helper Device Identifier Shelf Expiration Date Model / Serial / Lot Abandoned Lead Leads MEDTRONIC Description:(neurostimulator ) Known Abandoned Lead Ok For Mri Leads Description:Per Dr. Dario day, ok to scan with abandoned neurostimulator lead in back seen on xray. Always scan Low YESICA and ask patient to notify with any discomfort. sd Medtronic I* 4076 Capsurefix Novus [id number] Implanted: 011 (Quantity not on file) Leads [employer]TRONIC INC 4076 CAPSUREFIX NOVUS / [id number] / Medtronic I* 4076 Capsurefix Novus [id number] Implanted: 011 (Quantity not on file) Leads [employer]ON[employer] INC 4076 CAPSUREFIX NOVUS / [id number] / Spine Stimulator Neurology device Pelvis MEDTRONIC [id number] / / Description:Intellis 39299 s chloe cord stimulator with surescan lead [id number] [email or web address] Pacemaker Ghazal Mri Xt Dr Implanted:Qty: 1 on 12/27/2020 at [facility] Pacemaker [employer] INC 04/21/2022 [id number] / [id number] / [id number] Explanted Type Area Circular Knitter Helper Device Identifier Shelf Expiration Date Model / Serial / Lot Medtronic I* Vedr01 Versa [id number] Implanted:03/16 (Quantity not on file) Explanted:12/27 by Jose Maria Domínguez MD (Quantity not on file) Pacemaker [employer] INC VEDR01 VERSA / [id number] / Procedures Procedure Name Priority Date/Time Associated [...] - BLOOD ORDERABLES Final Result PH [facility] [address] [facility] [address] (Main level, no room number) [place] [address], [place] [phone] * (ABNORMAL) Hemoglobin A1c (04/29/2023 10:07 AM CDT) Hemoglobin A1C 7.3(H) 0.0 - 5.6 % 04/29/2023 10:20 AM CDT ER LABORATORY Comment: Normal <5.7% Prediabetes 5.7-6.4% Diabetes 6.5% or higher Note: Adopted from ADA consensus guidelines. Blood BLOOD SPECIMEN / Unknown Venipuncture / Unknown 04/29/2023 10:07 AM CDT 04/29/2023 10:07 AM CDT Chu Cruz PA-C LAB - BLOOD ORDERABLES Final Result ER [facility] [address] Lab (no room number, 1st floor of clinic) [place] [address], [place] [phone] * (ABNORMAL) Basic metabolic panel (Ca, Cl, [...] - BLOOD ORDERABLES Final Result PH [facility] [address] (Main level, no room number) [place] [address], [facility] [phone] * Hemoglobin (07/30/2022 11:23 AM CDT) Hemoglobin 14.0 11.7 - 15.7 g/dL 07/30/2022 11:41 AM CDT ER [facility] Blood STRUCTURE OF RIGHT UPPER LIMB / Unknown Venipuncture / Unknown 07/30/2022 11:23 AM CDT 07/30/2022 11:23 AM CDT Chu Cruz PA-C LAB - BLOOD ORDERABLES Final Result ER LABORATORY [facility] [address] Lab (no room number, 1st floor of clinic) [place] [address], [place] [phone] * (ABNORMAL) CBC with platelets (07/11/2022 4:40 AM CDT) Pathologist [facility] WBC Count 5.5 4.0 - 11.0 10e3/uL [...] BLOOD ORDERAB LES Final Result PH [facility] [address] Lab (Main level, no room number) [place] [address], [place] [phone] * (ABNORMAL) Comprehensive metabolic panel (07/09/2022 7:37 PM CDT) [facility] Sodium 140 133 - 144 mmol/L 07/09/2022 [...] and gender (Jose carter al., NEJM, DOI: 10.1056/[id number]) Blood STRUCTURE OF LEFT UPPER LIMB / Unknown VAD(CVC, PICC) / Unknown 07/09/2022 7:37 PM CDT 07/09/2022 7:52 PM CDT Palmira Gil MD LAB - BLOOD ORDERAB LES Final Result PH [facility] [address] [facility] [address] (Main level, no room number) [place] [address], [facility] [phone] * (ABNORMAL) UA with Microscopic reflex to [...] 07/03/2022 10:12 PM CDT PH LABORATORY Specific [place] Urine <=1.005 1.003 - 1.035 07/03/2022 10:12 [...] URINE ORDERABLES F inal Result PH [facility] [address] Lab (Main level, no room number) [place] [address], [facility] [phone] * PHQ-9 DEPRESSION SCREENING ORDER (06/04/2022) PHQ9 SCORE 10 Narrative Elicia Sadnoval - 06/04/2022 [facility] [...] - URINE ORDERABLES Final Result PH [facility] [address] Lab (Main level, no room number) [place] [address], [facility] [phone] * TSH with free T4 reflex (02/29/2020 1:32 PM CDT) TSH 0.68 0.40 - 4.00 mU/L 02/29/2020 2:[address] [facility] Blood specimen (specimen) 02/29/2020 1:32 PM CDT 02/29/2020 1:33 PM CDT us Chu Cruz PA-C LAB - BLOOD ORDERABLES Final Result [facility] [address] [place] [address], [facility] [phone] * DX Hip/Pelvis/Spine (03/27/2019 2:20 PM CDT) [...] scanned with DXA technique performed using a [employer]Cubes.com scanner. DXA results are reported according to [...] scanned with DXA technique performed using a [employer] scanner. DXA results are reported according to [...] methamphetamine is 1000 ng/mL or less. NEG [facility] Cocaine Qual Urine Negative Cutoff for a negative cocaine is 300 ng/mL or less. NEG [facility] Cannabinoids Qual Urine Negative Cutoff for a negative cannabinoid is 50 ng/mL or less. NEG [facility] MDMA Qual Urine Negative Cutoff for a negative MDMA (ecstasy) is 500 ng/mL or less. NEG [facility] Methadone Qual Urine Negative Cutoff for a negative methadone is 300 ng/mL or less. [facility] Opiates Qualitative Urine Positive Cutoff for a positive opiate is greater than 300 ng/mL. This is an unconfirmed screening result to be used for medical purposes only. (A) [facility] Benzodiazepine Qual Urine Negative Cutoff for a negative benzodiazepine is 300 ng/mL or less. [facility] Tricyc Anti Qual Urine Negative Cutoff for a negative tricyclic antidepressant is 1000 ng/mL or less. [facility] Barbiturates Qual Urine Negative Cutoff for a negative barbituate is 300 ng/mL or less. [facility] PCP Qual Urine Negative Cutoff for a negative PCP is 25 ng/mL or less. [facility] Amphetamine Qual Urine Negative Cutoff for a negative amphetamine is 1000 ng/mL or less. [facility] Oxycodone Qual Urine Negative Cutoff for a negative Oxycodone is 100 ng/mL or less. [facility] Urine specimen (specimen) 06/26/2016 10:29 AM CDT 06/26/2016 10:30 AM CDT Chu Curz PA-C LAB - URINE ORDERABLES Final Result [facility] [address] [place] [address], [facility] [phone] from Last 3 Months or Most Recently Relevant to Health Maintenance Insurance [facility] [employer]URANCE Advance Directives For more information, please contact: [phone] * No CPR- Do NOT Intubate (Latest [...] with patie nt/legal decision maker Care Teams Convention Services Director Relationship Specialty Start Date End Date Chu Cruz PA-C [address] [address] PCP - General Physician Instrument Technician Helper 07/07/17 Minna Chawla, RN [address] [address] Launch Commander [employer] Diabetes Education 06/30/18 Minna Chawla RN [address] [address] Launch Commander [employer] Diabetes Education 06/30/18 Chu Cruz PA-C [address] [address] Assigned PCP 11/14/17 Aruna Mart [address] [place] [address] Launch Commander [employer] 01/16/22 Clem Maynard MD [address] [place] [phone] Cardiovascular Disease 01/07/23
--- OUTSIDE RECORDS SUMMARY | 2025-02-12 17:53 | XMS_ITS | Encounter Summary ---
Author Organization [facility] Address [address] [facility] [place] [address] Care Team Providers Care Nut Feeder Name Role Phone Chu Cruz PA-C Primary Care Provider Minna Chawla RN Unavailable Unavailable Minna Chawla RN Unavailable Unavailable Chu Cruz PA-C Unavailable Dario Potter MD Unavailable [phone] Luis Miguel Woodson MD Unavailable Unavailable Daisy Mejia NP Unavailable [phone] Aruna Mart Unavailable Chris Ricketts DPM Unavailable [phone] Chris Ricketts DPM Unavailable Clem Maynard MD Unavailable Clem Maynard MD Unavailable [phone] Encounter Details Date Type Department Care Team (Late st Contact Info) Description 02/23/2021 Documentation Only [facility] Emergency Dept [address] [facility] [place] [address] Unknown, Provider Social History [...] Sex Assigned at Female 01/14/2021 7:41 PM NETWORK FIELD ENGINEER Legal Sex Female 6:11 PM CDT Gender Identity Female 01/14/2021 7:41 PM NETWORK FIELD ENGINEER Sexual Orientation Straight 01/14/2021 7: 41 PM NETWORK FIELD ENGINEER COVID-19 Exposure Response Date Recorded In [...] documented as of this encounter Care Teams Nut Feeder Relationship Specialty Start Date End Date Chu Cruz PA-C [address] [address] PCP - General Physician Edge Sander 07/07/17 Minna Chawla RN [address] [address] Territory Sales Consultant Diabetes Education 06/30/18 Minna Chawla RN [address] [address] Territory Sales Consultant Diabetes Education 06/30/18 Chu Cruz PA-C [address] [address] Assigned PCP 11/14/17 Dario Potter MD [address] [place] [address] [place] [address] Assigned Musculoskeletal Provider 08/30/20 01/10/22 Luis Miguel Woodson MD Assigned Heart and Vascular Provider 08/30/20 06/26/22 Daisy Mejia FREELANCE RECRUITER [address] [facility] [place] [address] Assigned Neuroscience Provider 09/07/21 03/05/23 Aruna Mart [address] [place] [address] Territory Sales Consultant 01/16/22 Chris Ricketts DPM [address] [place] [address] [place] [address] Assigned Musculoskeletal Provider 01/11/22 12/11/22 Chris Ricketts DPM [address] [place] [address] [place] [address] Assigned Surgical Provider 12/12/22 02/28/24 Clem Maynard MD [address] [place] [phone] Cardiovascular Disease 01/07/23 Clem Maynard MD [address] [place] [phone] Assigned Heart and Vascular Provider 01/16/23 07/30/24 documented as of this encounter
--- OUTSIDE RECORDS SUMMARY | 2025-02-12 17:53 | XMS_ITS | Encounter Summary ---
Author Organization [facility] Address [address] [place] [address] Care Team Providers Care Permit Review Assistant Name Role Phone Chu Cruz PA-C Primary Care Provider Minna Chawla RN Unavailable Unavailable Minna Chawla RN Unavailable Unavailable Chu Cruz PA-C Unavailable Lisa Riggs RN Unavailable [phone] Dario Potter MD Unavailable Luis Miguel Woodson MD Unavailable Unavailable Matheus Medina MD Unavailable Daisy Mejia CHIEF LOCK TENDER OPERATOR Unavailable Aruna Mart Unavailable Chris Ricketts DPM Unavailable Chris Ricketts DPM Unavailable [phone] Clem Maynard MD Unavailable [phone] Clem Maynard MD Unavailable [phone] Reason for Visit * Reason Comments Home Care/Hospice Encounter Details Date Type Department Care Team (Late st Contact Info) Description 07/23/2019 Documentation Only [facility] [address] [place] [phone] Chu Cruz PA-C [address] [address] Home Care/Hospice Social History Tobacco Use Types Packs/Day Years Used Date Smoking Tobacco: Former Smokeless Tobacco: Never Comments:only 6 months use Alcohol Use Standard Drinks/Week Comments Yes 0 (1 standard drink = 0.6 oz pur e alcohol) rarely PHQ-2 Answer Date Recorded PHQ-2 Score 2 01/26/2019 Comments No Sex and Gender Information Value Date Recorded Sex Assigned at Female 01/14/2021 7:41 PM SALVAGE DETERMINER Legal Sex Female 6:11 PM CDT Gender Identity Female 01/14/2021 7:41 PM SALVAGE DETERMINER Sexual Orientation Straight 01/14/2021 7: 41 PM SALVAGE DETERMINER documented as of this encounter Plan of Treatment Not on file documented as of this encounter Visit Diagnoses Not on filedocumented in this encounter Additional Health Concerns Infection Onset Date Last Indicated Resolved Time Rule Out COVID-19 09/26/2020 09/26/2020 09/27/2020 5:31 PM SALVAGE DETERMINER Rule Out COVID-19 05/28/2022 05/28/2022 05/28/2022 8:56 PM CDT Rule Out COVID-19 07/03/2022 07/03/2022 07/03/2022 6:55 PM CDT Assessment Noted Time PHQ-9 Depression Total Score: 3 01/28/20 19 7:06 AM CDT documented as of this encounter Care Teams Permit Review Assistant Relationship Specialty Start Date End Date Chu Cruz PA-C [address] [address] PCP - General Physician Center Line Cutter Operator 07/07/17 Minna Chawla, RN [address] [address] Sprayer Automatic Spray Machine Diabetes Education 06/30/18 Minna Chawla RN [address] [address] Sprayer Automatic Spray Machine Diabetes Education 06/30/18 Chu Cruz PA-C [address] [facility] [address] [place] [address] Assigned PCP 11/14/17 Lisa Riggs, RN Clinic Wide Piece Goods Inspector Primary Care - CC 06/14/2006/16 Dario Potter MD [address] [place] [address] Assigned Musculoskeletal Provider 08/30/20 01/10/22 Luis Miguel Woodson MD Assigned Heart and Vascular Provider 08/30/20 06/26/22 Matheus Medina MD [address] [place], [place] [address] Assigned Surgical Provider 08/30/20 11/30/20 Daisy Mejia, CHIEF LOCK TENDER OPERATOR [address] [facility] [address] [place], [place] [address] Assigned Neuroscience Provider 09/07/21 03/05/23 Aruna Mart [address] [place] [address] Sprayer Automatic Spray Machine 01/16/22 Chris Ricketts DPM [address] [place] [address] [address] [place] 9[address] Assigned Musculoskeletal Provider 01/11/22 12/11/22 Chris Ricketts DPM [address] [place] [address] [address] [place] 674[address] Assigned Surgical Provider 12/12/22 02/28/24 Clem Maynard MD [address] [place] [phone] Cardiovascular Disease 01/07/23 Clem Maynard MD [address] [place] [phone] Assigned Heart and Vascular Provider 01/16/23 07/30/24 documented as of this encounter
--- OUTSIDE RECORDS SUMMARY | 2025-02-12 17:53 | XMS_ITS | Encounter Summary ---
Author Organization [facility] Address [address] [place] [address] Care Team Providers Care Automation And Controls Supervisor Name Role Phone Chu Cruz PA-C Primary Care Provider Minna Chawla RN Unavailable Unavailable Minna Chawla RN Unavailable Unavailable Chu Cruz PA-C Unavailable [phone] Lisa Riggs RN Unavailable [phone] Dario Potter MD Unavailable Luis Miguel Woodson MD Unavailable Unavailable Matheus Medina MD Unavailable Daisy Mejia TRANSMISSION SUPERINTENDENT Unavailable Aruna Mart Unavailable Chris Ricketts DPM Unavailable Chris Ricketts DPM Unavailable [phone] Clem Myanard MD Unavailable [phone] Clem Maynard MD Unavailable [phone] Reason for Visit * Reason Comments Home Care/Hospice Encounter Details Date Type Department Care Team (Late st Contact Info) Description 07/24/[address] [facility] [address] [facility] [address] [place] [address] Chu Cruz PA-C [address] [address] Home Care/Hospice Social History Tobacco Use Types Packs/Day Years Used Date Smoking Tobacco: Former Smokeless Tobacco: Never Comments:only 6 months use Alcohol Use Standard Drinks/Week Comments Yes 0 (1 standard drink = 0.6 oz pur e alcohol) rarely PHQ-2 Answer Date Recorded PHQ-2 Score 2 01/26/2019 Comments No Sex and Gender Information Value Date Recorded Sex Assigned at Female 01/14/2021 7:41 PM TECHNICAL COMMUNICATOR Legal Sex Female 6:11 PM CDT Gender Identity Female 01/14/2021 7:41 PM TECHNICAL COMMUNICATOR Sexual Orientation Straight 01/14/2021 7: 41 PM TECHNICAL COMMUNICATOR documented as of this encounter Plan of Treatment Not on file documented as of this encounter Visit Diagnoses Not on filedocumented in this encounter Additional Health Concerns Infection Onset Date Last Indicated Resolved Time Rule Out COVID-19 09/26/2020 09/26/2020 09/27/2020 5:31 PM TECHNICAL COMMUNICATOR Rule Out COVID-19 05/28/2022 05/28/2022 05/28/2022 8:56 PM CDT Rule Out COVID-19 07/03/2022 07/03/2022 07/03/2022 6:55 PM CDT Assessment Noted Time PHQ-9 Depression Total Score: 3 01/28/20 19 7:06 AM CDT documented as of this encounter Care Teams Automation And Controls Supervisor Relationship Specialty Start Date End Date Chu Cruz PA-C [address] [address] PCP - General Physician Regional Dedicated Truck Driver 07/07/17 Minna Chawla, RN [address] [address] Geothermal Electrical Engineer Diabetes Education 06/30/18 Minna Chawla RN [address] [address] Geothermal Electrical Engineer Diabetes Education 06/30/18 Chu Cruz PA-C [address] [facility] [address] [place], [place] [address] Assigned PCP 11/14/17 Lisa Riggs, RN Clinic Patent Prosecution Paralegal Primary Care - CC 06/14/2006/16 Dario Potter MD [address] [place] [address] Assigned Musculoskeletal Provider 08/30/20 01/10/22 Luis Miguel Woodson MD Assigned Heart and Vascular Provider 08/30/20 06/26/22 Matheus Medina MD [address] [place], [place] [address] Assigned Surgical Provider 08/30/20 11/30/20 Daisy Mejia NP [address] [facility] [address] [place], [place] [address] Assigned Neuroscience Provider 09/07/21 03/05/23 Aruna Mart [address] [place] [id number] Geothermal Electrical Engineer 01/16/22 Chris Ricketts DPM [address] [place] [address] [address] [place] 154281 Assigned Musculoskeletal Provider 01/11/22 12/11/22 Chris Ricketts DPM [address] [place] [address] [address] [place] 417671 Assigned Surgical Provider 12/12/22 02/28/24 Clem Maynard MD [address] [place] [phone] Cardiovascular Disease 01/07/23 Clem Maynard MD [address] [place] [phone] Assigned Heart and Vascular Provider 01/16/23 07/30/24 documented as of this encounter
--- OUTSIDE RECORDS SUMMARY | 2025-02-12 17:53 | XMS_ITS | Encounter Summary ---
Author Organization [place] Address [facility] [place] [address] Care Team Providers Care Bricklayer Helper Name Role Phone Chu Cruz PA-C Primary Care Provider Minna Chawla RN Unavailable Unavailable Minna Chawla RN Unavailable Unavailable Chu Cruz PA-C Unavailable Dario Potter MD Unavailable Luis Miguel Woodson MD Unavailable Unavailable Daisy Mejia NP Unavailable Aurna Mart Unavailable Chris Ricketts DPM Unavailable Chris Ricketts DPM Unavailable Clem Maynard MD Unavailable [phone] Clem Maynard MD Unavailable [phone] Reason for Visit * Reason Onset Date Comments requesting orders 03/03/2021 Encounter Details Date Type Department Care Team (Late st Contact Info) Description 03/03/2021 [facility] [address] [facility] [address] [place] [address] Chu Cruz PA-C [address] [place] [address] requesting orders Social History Tobacco Use Types Packs/Day Years Used Date Smoking Tobacco: Former Smokeless Tobacco: Never Comments:only 6 months use Alcohol Use Standard Drinks/Week Comments Yes 0 (1 standard drink = 0.6 oz pur e alcohol) rarely PHQ-2 Answer Date Recorded PHQ-2 Score 3 02/26/2021 Comments No Sex and Gender Information Value Date Recorded Sex Assigned at Female 01/14/2021 7:41 PM GMAT INSTRUCTOR Legal Sex Female 6:11 PM CDT Gender Identity Female 01/14/2021 7:41 PM GMAT INSTRUCTOR Sexual Orientation Straight 01/14/2021 7: 41 PM GMAT INSTRUCTOR COVID-19 Exposure Response Date Recorded In the [...] Janelle Vides - 03/03/2021 7:06 PM CDT [facility] Care [facility] now requests orders and shares plan of care/discharge summaries for some patients through [facility] [place]. Please REPLY TO THIS MESSAGE OR ROUTE [...] for back pain, hip pain and strengthening. CREDIT REPORTER 1X/wk times 3 wks OT eval SW [...] documented as of this encounter Care Teams Bricklayer Helper Relationship Specialty Start Date End Date Chu Cruz PA-C [address] [facility] [address] [place] [address] PCP - General Physician Boiler Inspector 07/07/17 Minna Chawla, RN [address] [address] Steam Hand Diabetes Education 06/30/18 Minna Chawla RN [address] [address] Steam Hand Diabetes Education 06/30/18 Chu Cruz PA-C [address] [address] Assigned PCP 11/14/17 Dario Potter MD [address] [place] [address] Assigned Musculoskeletal Provider 08/30/20 01/10/22 Luis Miguel Woodson MD Assigned Heart and Vascular Provider 08/30/20 06/26/22 Daisy Mejia NP [address] [address] Assigned Neuroscience Provider 09/07/21 03/05/23 Aruna Mart [address] [place] [address] [place] [address] Steam Hand 01/16/22 Chris Ricketts DPM [address] [place] [address] [place] [address] Assigned Musculoskeletal Provider 01/11/22 12/11/22 Chris Ricketts DPM [address] [place] [address] DR [place], JOSEPH [address] Assigned Surgical Provider 12/12/22 02/28/24 Clem Maynard MD [address] [place] [phone] Cardiovascular Disease 01/07/23 Clem Maynard MD [address] [place] [phone] Assigned Heart and Vascular Provider 01/16/23 07/30/24 documented as of this encounter
--- OUTSIDE RECORDS SUMMARY | 2025-02-12 17:53 | XMS_ITS | Encounter Summary ---
Author Organization [place] Address [facility] [place] [address] Care Team Providers Care Spinning Room Worker Name Role Phone Chu Cruz PA-C Primary Care Provider Minna Chawla RN Unavailable Unavailable Minna Chawla RN Unavailable Unavailable Chu Cruz PA-C Unavailable [phone] Dario Potter MD Unavailable [phone] Luis Miguel Woodson MD Unavailable Unavailable Daisy Mejia NP Unavailable Aruna Mart Unavailable [phone] Chris Ricketts DPM Unavailable [phone] Chris Ricketts DPM Unavailable Clem Maynard MD Unavailable Clem Maynard MD Unavailable Encounter Details Date Type Department Care Team (Late st Contact Info) Description 02/24/2021 [facility] 290 [facility] [address] [place] [address] Chu Cruz PA-C [address] [facility] [address] [place] [address] Social History Tobacco Use Types Packs/Day Years Used Date Smoking Tobacco: Former Smokeless Tobacco: Never Comments:only 6 months use Alcohol Use Standard Drinks/Week Comments Yes 0 (1 standard drink = 0.6 oz pur e alcohol) rarely PHQ-2 Answer Date Recorded PHQ-2 Score 3 02/26/2021 Comments No Sex and Gender Information Value Date Recorded Sex Assigned at Female 01/14/2021 7:41 PM PATIENT ASSESSMENT COORDINATOR Legal Sex Female 6:11 PM CDT Gender Identity Female 01/14/2021 7:41 PM PATIENT ASSESSMENT COORDINATOR Sexual Orientation Straight 01/14/2021 7: 41 PM PATIENT ASSESSMENT COORDINATOR COVID-19 Exposure Response Date Recorded In the [...] documented as of this encounter Care Teams Spinning Room Worker Relationship Specialty Start Date End Date Chu Curz PA-C [address] [address] PCP - General Physician Profiler Hand 07/07/17 Minna Chawla RN [address] [address] Green Building Materials Designer Diabetes Education 06/30/18 Minna Chawla RN [address] [address] Green Building Materials Designer Diabetes Education 06/30/18 Chu Cruz PA-C [address] [address] Assigned PCP 11/14/17 Dario Potter MD [address] [place] [address] Assigned Musculoskeletal Provider 08/30/20 01/10/22 Luis Miguel Woodson MD Assigned Heart and Vascular Provider 08/30/20 06/26/22 Daisy Mejia NP [address] [place] [address] Assigned Neuroscience Provider 09/07/21 03/05/23 Aruna Mart [address] [place] [address] Green Building Materials Designer 01/16/22 Chris Ricketts DPM [address] [place] [address] [place] [address] Assigned Musculoskeletal Provider 01/11/22 12/11/22 Chris Ricketts DPM [address] [place] [address] [place] [address] Assigned Surgical Provider 12/12/22 02/28/24 Clem Maynard MD [address] [place] [phone] Cardiovascular Disease 01/07/23 Clem Maynard MD [address] [place] [id number] Assigned Heart and Vascular Provider 01/16/23 07/30/24 documented as of this encounter
--- OUTSIDE RECORDS SUMMARY | 2025-02-12 17:53 | XMS_ITS ---
Author Organization [facility] Address [address] [place] [address] [address] [place] [address] Care Team Providers Care Lead Electrical Engineer Name Role Phone Chu Cruz PA-C Primary Care Provider Felipe Lester Unavailable [phone] Jerardo Washington Unavailable Unavailable Benito Saha Unavailable [phone] Allergies Allergen (clinical drug ingredient) Drug/Non Drug [...] Encounters Encounter Location Date Provider Diagnosis [facility] [address] [facility] 104 [place] [address] 11/06/2024 Benito Saha Other chronic pain G89.29 [...] at this time. I have reviewed the [facility] database and did not find any inconsistencies. [...] at this time. I have reviewed the [facility] database and did not find any inconsistencies. [...] with any questions, problems or concerns. Other Rafia Mann, am serving as a scribe to [...] Hayde FONG DDOB: [birth year] (89 yo F)Acc No.[id number]:11/06/2024 Progress Notes Patient: Hayde BOWMAN Provider: Jyotsna Saha PA-C :1935 A ge:89 Y S ex:Female Date:11/06/2024 Address:[address] [place] [address], [address] Pcp:Chu Cruz PA-C Subjective: * Chief Complaints: * 1 . [...] Amitiza and Senna for OIC Previous medications: [place] 10-325mg TID returns to clinic today for a follow up evaluation regarding her chronic ___ pain. I have reviewed the [facility] database and did not find any inconsistencies. [...] Electronic signature of Andrea Saha PA-C on 02/12/2025 at 05:52 PM CDT Sign off status: Pending * Provider: Jyotsna Saha PA-C Date: 1 Generated for Elena figueredo/Akil/eTransmitting on: 0 02/12/2025 05:52 PM CDT History and Physical Notes * HPI (History of Present Illness) Category Sub-Category Detail Notes Category Not es PQRS MEASURE 154,155 Fall Risk Have you had t wo or more falls in the past year?: No Have you had any falls with injury in e past year?: No Examination Category Sub-Category [...]
--- OUTSIDE RECORDS SUMMARY | 2025-02-12 17:53 | XMS_ITS | Encounter Summary ---
Author Organization [place] Address [address] [place] [address] Care Team Providers Care Marketing Database Coordinator Name Role Phone Chu Cruz PA-C Primary Care Provider Minna Chawla RN Unavailable Unavailable Minna Chawla RN Unavailable Unavailable Chu Cruz PA-C Unavailable Lisa Riggs RN Unavailable Dario Potter MD Unavailable Luis Miguel Woodson MD Unavailable Unavailable Mathesu Medina MD Unavailable [phone] Daisy Mejia MANAGER OB Unavailable Aruna Mart Unavailable Chris Ricketts DPM Unavailable Chris Ricketts DPM Unavailable [phone] Clem Maynard MD Unavailable [phone] Clem Maynard MD Unavailable [phone] Reason for Visit * Reason Comments Home Care/Hospice Encounter Details Date Type Department Care Team (Late st Contact Info) Description 08/07/2019 Documentation Only [facility] 290 [facility] [address] [place] [address] Chu Cruz PA-C [address] [address] Home Care/Hospice Social History Tobacco Use Types Packs/Day Years Used Date Smoking Tobacco: Former Smokeless Tobacco: Never Comments:only 6 months use Alcohol Use Standard Drinks/Week Comments Yes 0 (1 standard drink = 0.6 oz pur e alcohol) rarely PHQ-2 Answer Date Recorded PHQ-2 Score 2 01/26/2019 Comments No Sex and Gender Information Value Date Recorded Sex Assigned at Female 01/14/2021 7:41 PM NIGHT CUSTODIAN Legal Sex Female 6:11 PM CDT Gender Identity Female 01/14/2021 7:41 PM NIGHT CUSTODIAN Sexual Orientation Straight 01/14/2021 7: 41 PM NIGHT CUSTODIAN documented as of this encounter Plan of Treatment Not on file documented as of this encounter Visit Diagnoses Not on filedocumented in this encounter Additional Health Concerns Infection Onset Date Last Indicated Resolved Time Rule Out COVID-19 09/26/2020 09/26/2020 09/27/2020 5:31 PM NIGHT CUSTODIAN Rule Out COVID-19 05/28/2022 05/28/2022 05/28/2022 8:56 PM CDT Rule Out COVID-19 07/03/2022 07/03/2022 07/03/2022 6:55 PM CDT Assessment Noted Time PHQ-9 Depression Total Score: 3 01/28/20 19 7:06 AM CDT documented as of this encounter Care Teams Marketing Database Coordinator Relationship Specialty Start Date End Date Chu Cruz PA-C [address] [address] PCP - General Physician Farm Management Adviser 07/07/17 Minna Chawla, RN [address] [address] Customer Orders Clerk Diabetes Education 06/30/18 Minna Chawla RN [address] [address] Customer Orders Clerk Diabetes Education 06/30/18 Chu Cruz PA-C 290 [facility] 100 [place], [place] [address] Assigned PCP 11/14/17 Lisa Riggs, RN Clinic Record Press Supervisor Primary Care - CC 06/14/2006/16 Dario Potter MD [address] [place] [address] Assigned Musculoskeletal Provider 08/30/20 01/10/22 Luis Miguel Woodson MD Assigned Heart and Vascular Provider 08/30/20 06/26/22 Matheus Medina MD [address] [place], [place] [address] Assigned Surgical Provider 08/30/20 11/30/20 Daisy Mejia NP 6545 [facility] [address] [place], [place] [address] Assigned Neuroscience Provider 09/07/21 03/05/23 Aruna Mart [address] [place] [address] Customer Orders Clerk 01/16/22 Chris Ricketts DPM [address] [place] [address] [address] [place] 128341 Assigned Musculoskeletal Provider 01/11/22 12/11/22 Chris Ricketts DPM [address] [place] [address] [address] [place] 502691 Assigned Surgical Provider 12/12/22 02/28/24 Clem Maynard MD [address] [place] [phone] Cardiovascular Disease 01/07/23 Clem Maynard MD [address] [place] [phone] Assigned Heart and Vascular Provider 01/16/23 07/30/24 documented as of this encounter
--- OUTSIDE RECORDS SUMMARY | 2025-02-12 17:53 | XMS_ITS | Encounter Summary ---
Author Organization [place] Address [address] [place] [address]. [place] [address] Care Team Providers Care Rn Digestive Name Role Phone Chu Cruz PA-C Primary Care Provider Minna Chawla RN Unavailable Unavailable Minna Chawla RN Unavailable Unavailable Chu Cruz PA-C Unavailable [phone] Aruna Mart Unavailable [phone] Clem Maynard MD Unavailable [phone] Encounter Details Date Type Department Care Team (Late st Contact Info) Description 12/13/2024 [facility] Medical Advice [address] [place] [address] Joanna Ascencio, JAVA SWING DEVELOPER Social History Tobacco Use Types Packs/Day Years [...] Sex Assigned at Female 01/14/2021 7:41 PM HISTOTECHNOLOGIST Legal Sex Female 6:11 PM CDT Gender Identity Female 01/14/2021 7:41 PM HISTOTECHNOLOGIST Sexual Orientation Straight 01/14/2021 7: 41 PM HISTOTECHNOLOGIST documented as of this encounter Plan of Treatment Not on file documented as of this encounter Visit Diagnoses Not on filedocumented in this encounter Additional Health Concerns Assessment Noted Time PHQ-9 Depression Total Score: 10 023 10:36 AM CDT documented as of this encounter Care Teams Rn Digestive Relationship Specialty Start Date End Date Chu Cruz PA-C [address] [address] PCP - General Physician High Lift Driver 07/07/17 Minna Chawla RN [address] [address] Technical Aid Diabetes Education 06/30/18 Minna Chawla RN [address] [address] Technical Aid Diabetes Education 06/30/18 Chu Cruz PA-C [address] [address] Assigned PCP 11/14/17 Aruna Mart [address] [place] [address] Technical Aid 01/16/22 Clem Maynard MD [address] [place] [address] Cardiovascular Disease 01/07/23 documented as of this encounter
--- OUTSIDE RECORDS SUMMARY | 2025-02-12 17:53 | XMS_ITS | Encounter Summary ---
Author Organization [place] Address [address] [place] [address] Care Team Providers Care Charhouse Worker Name Role Phone Chu Cruz PA-C Primary Care Provider Minna Chawla RN Unavailable Unavailable Minna Chawla RN Unavailable Unavailable Chu Cruz PA-C Unavailable [phone] Lisa Riggs RN Unavailable Dario Potter MD Unavailable Luis Miguel Woodson MD Unavailable Unavailable Matheus Medina MD Unavailable [phone] Daisy Mejia BD SPECIAL EDUCATION TEACHER Unavailable [phone] Aruna Mart Unavailable Chris Ricketts DPM Unavailable Chris Ricketts DPM Unavailable Clem Maynard MD Unavailable [phone] Clem Maynard MD Unavailable [phone] Reason for Visit * Reason Comments Home Care/Hospice Encounter Details Date Type Department Care Team (Late st Contact Info) Description 08/03/2019 Documentation Only [facility] 290 [facility] [address] [place] [address] Chu Cruz PA-C [address] [address] Home Care/Hospice Social History Tobacco Use Types Packs/Day Years Used Date Smoking Tobacco: Former Smokeless Tobacco: Never Comments:only 6 months use Alcohol Use Standard Drinks/Week Comments Yes 0 (1 standard drink = 0.6 oz pur e alcohol) rarely PHQ-2 Answer Date Recorded PHQ-2 Score 2 01/26/2019 Comments No Sex and Gender Information Value Date Recorded Sex Assigned at Female 01/14/2021 7:41 PM FAMILY LIVING EDUCATOR Legal Sex Female 6:11 PM CDT Gender Identity Female 01/14/2021 7:41 PM FAMILY LIVING EDUCATOR Sexual Orientation Straight 01/14/2021 7: 41 PM FAMILY LIVING EDUCATOR documented as of this encounter Progress Notes [...] Out COVID-19 09/26/2020 09/26/2020 09/27/2020 5:31 PM FAMILY LIVING EDUCATOR Rule Out COVID-19 05/28/2022 05/28/2022 05/28/2022 8:56 PM CDT Rule Out COVID-19 07/03/2022 07/03/2022 07/03/2022 6:55 PM CDT Assessment Noted Time PHQ-9 Depression Total Score: 3 01/28/20 7:06 AM CDT documented as of this encounter Care Teams Charhouse Worker Relationship Specialty Start Date End Date Chu Cruz PA-C [address] [address] PCP - General Physician Braid Pattern Setter 07/07/17 Minna Chawla RN 290 [facility] 100 [place] [address] Otolaryngology Teacher Diabetes Education 06/30/18 Minna Chawla RN 290 [facility] 100 [place] [address] Otolaryngology Teacher Diabetes Education 06/30/18 Chu Cruz PA-C 290 [facility] 100 [place] [address] Assigned PCP 11/14/17 Lisa Riggs RN Clinic Rip Sawyer Primary Care - CC 06/14/2006/16 Draio Potter MD [address] [place] [address] Assigned Musculoskeletal Provider 08/30/20 01/10/22 Luis Miguel Woodson MD Assigned Heart and Vascular Provider 08/30/20 06/26/22 Matheus Medina MD [address] [place] [address] Assigned Surgical Provider 08/30/20 11/30/20 Daisy Mejia NP 65[address] [facility] 450 [place], [place] [address] Assigned Neuroscience Provider 09/07/21 03/05/23 Aruna Mart [address] [place] [address] Otolaryngology Teacher 01/16/22 Chris Ricketts DPM [address] [place] [place] [address] Assigned Musculoskeletal Provider 01/11/22 12/11/22 Chris Ricketts DPM [address] [place] [place] [address] Assigned Surgical Provider 12/12/22 02/28/24 Clem Maynard MD [address] [place] [phone] Cardiovascular Disease 01/07/23 Clem Maynard MD [address] [place] [phone] Assigned Heart and Vascular Provider 01/16/23 07/30/24 documented as of this encounter
--- OUTSIDE RECORDS SUMMARY | 2025-02-12 17:53 | XMS_ITS ---
Author Organization [facility] Address [address] [place] [address] [address] [place] [address] Care Team Providers Care Analytical Data Miner Name Role Phone Chu Cruz PA-C Primary Care Provider Felipe Lester Unavailable [phone] Jerardo Washington Unavailable Unavailable Benito Saha Unavailable [phone] Allergies Allergen (clinical drug ingredient) Drug/Non Drug [...] point) Points 4 Interpretation Positive Vital Signs Height 66 in 10/10/2024 Blood pressure systolic 132 mm Hg 10/10/20 24 Blood pressure diastolic 78 mm Hg 024 Encounters Encounter Location Date Provider Diagnosis [facility] [address] [facility] 104 [place] [address] 10/10/2024 Benito Saha Other chronic pain G89.29 [...] at this time. I have reviewed the [facility] database and did not find any [...] at this time. I have reviewed the [facility] database and did not find any [...] with any questions, problems or concerns. Other I, Erica Sen, am serving as a scribe [...] Hayde FONG DDOB: [birth year] (89 yo F)Acc No.[id number]:10/10/2024 Progress Notes Patient: Hayde BOWMAN Provider: Jyotsna Saha PA-C :1935 A ge:89 Y S ex:Female Date:10/10/2024 Address:[address] [place], [place] [address] Pcp:Chu Cruz Subjective: * Chief Complaints: * L ow Back PainLeft Lower Extremity Pain * HPI: C lori visit: Hayde (Francine) is a pleasant 89-year-old [...] Amitiza and Senna for OIC Previous medications: [place] 10-325mg TID. D epression Screening: PHQ-9 L [...] ? C QM Exceptions: BMI not documented R jose: P atient ReasonType of Patient Reason: P atient refused service. Assessment: * Assessment: 1. O ther chronic pain - G89.29 2 . L ow back pain, unspecified - M54.50 (Primary) Plan: * Treatment: 2. O thers Notes: IErica Sen, am serving as a scribe to [...] Weeks * Billing Information: * Visit Code: 82993 Established Patient level 3. * Procedure Codes: * RT OPERATOR Sign off status: Completed true * Provider: Jyotsna Saha PA-C Date: 12/11/2023 Generated for Elena figueredo/Akil/eTransmwellington on: 0 02/12/2025 05:53 PM CDT History and Physical Notes * [...] with injury in e past year?: No Plan of Care:: [...]
--- OUTSIDE RECORDS SUMMARY | 2025-02-12 17:53 | XMS_ITS | Encounter Summary ---
Author Organization [facility] Address [address] [place] [address]. [place] [address] Care Team Providers Care Road Driver Name Role Phone Chu Cruz PA-C Primary Care Provider Minna Chawla RN Unavailable Unavailable Minna Chawla RN Unavailable Unavailable Chu Cruz PA-C Unavailable [phone] Aruna Mart Unavailable [phone] Clem Maynard MD Unavailable [phone] Clem Maynard MD Unavailable [phone] Encounter Details Date Type Department Care Team (Late st Contact Info) Description 06/13/2024 MyC Medical Advice [address] [place] [address] Joanna Ascencio, WAX SPECIALIST Social History Tobacco Use Types Packs/Day Years [...] Sex Assigned at Female 01/14/2021 7:41 PM FLASH WELDER Legal Sex Female 6:11 PM CDT Gender Identity Female 01/14/2021 7:41 PM FLASH WELDER Sexual Orientation Straight 01/14/2021 7: 41 PM FLASH WELDER documented as of this encounter Plan of Treatment Not on file documented as of this encounter Visit Diagnoses Not on filedocumented in this encounter Additional Health Concerns Assessment Noted Time PHQ-9 Depression Total Score: 10 023 10:36 AM CDT documented as of this encounter Care Teams Road Driver Relationship Specialty Start Date End Date Chu Cruz PA-C [address] [address] PCP - General Physician Impact Hammer Operator 07/07/17 Minna Chawla RN [address] [address] Rod And Tube Straightener Diabetes Education 06/30/18 Minna Chawla RN [address] [address] Rod And Tube Straightener Diabetes Education 06/30/18 Chu Cruz PA-C [address] [address] Assigned PCP 11/14/17 Aruna Mart [address] [place] [address] Rod And Tube Straightener 01/16/22 Clem Maynard MD [address] [place] [phone] Cardiovascular Disease 01/07/23 Clem Maynard MD [address] [place] [phone] Assigned Heart and Vascular Provider 01/16/23 07/30/24 documented as of this encounter
--- OUTSIDE RECORDS SUMMARY | 2025-02-12 17:54 | XMS_ITS | Encounter Summary ---
Author Organization [facility] Address [address] [place] [address] Care Team Providers Care Fast Food Crew Lead Name Role Phone Chu Cruz PA-C Primary Care Provider Minna Chawla RN Unavailable Unavailable Minna Chawla RN Unavailable Unavailable Chu Cruz PA-C Unavailable [phone] Luis Miguel Woodson MD Unavailable Unavailable Daisy Mejia REGIONAL ECONOMIC LIAISON Unavailable Aruna Mart Unavailable [phone] Chris Ricketts DPM Unavailable [phone] Chris Ricketts DPM Unavailable [phone] Clem Maynard MD Unavailable [phone] Clem Maynard MD Unavailable [phone] Encounter Details Date Type Department Care Team (Late st Contact Info) Description 06/03/2022 [facility] [address] [address] Radha Fugn, RN Social History Tobacco Use Types Packs/Day Years Used Date Smoking Tobacco: Former Smokeless Tobacco: Never Comments:only 6 months use Alcohol Use Standard Drinks/Week Comments Yes 0 (1 standard drink = 0.6 oz pur e alcohol) rarely PHQ-2 Answer Date Recorded PHQ-2 Score 1 03/26/2022 Comments No Sex and Gender Information Value Date Recorded Sex Assigned at Female 01/14/2021 7:41 PM SUPERVISOR MARBLE Legal Sex Female 6:11 PM CDT Gender Identity Female 01/14/2021 7:41 PM SUPERVISOR MARBLE Sexual Orientation Straight 01/14/2021 7: 41 PM SUPERVISOR MARBLE COVID-19 Exposure Response Date Recorded In the [...] documented as of this encounter Care Teams Fast Food Crew Lead Relationship Specialty Start Date End Date Chu Cruz PA-C [address] [address] PCP - General Physician Global Sourcing Manager 07/07/17 Minna Chawla RN [address] [address] Seaman Diabetes Education 06/30/18 Minna Chawla RN [address] [address] Seaman Diabetes Education 06/30/18 Chu Cruz PA-C [address] [address] Assigned PCP 11/14/17 Luis Miguel Woodson MD Assigned Heart and Vascular Provider 08/30/20 06/26/22 Daisy Mejia NP [address] [place] [address] Assigned Neuroscience Provider 09/07/21 03/05/23 Aruna Mart 919 [facility] [place], [place] [address] Seaman 01/16/22 Chris Ricketts DPM 9 [facility] [place], [place] [address] Assigned Musculoskeletal Provider 01/11/22 12/11/22 Chris Ricketts DPM 9 [facility] [place] [address] Assigned Surgical Provider 12/12/22 02/28/24 Clem Maynard MD [address] [place] [phone] Cardiovascular Disease 01/07/23 Clem Maynard MD [address] [place] [phone] Assigned Heart and Vascular Provider 01/16/23 07/30/24 documented as of this encounter
--- OUTSIDE RECORDS SUMMARY | 2025-02-12 17:54 | XMS_ITS | Encounter Summary ---
Author Organization [place] Address [facility] [place] [address] Care Team Providers Care Tax Director Name Role Phone Chu Cruz PA-C Primary Care Provider Minna Chawla RN Unavailable Unavailable Minna Chawla RN Unavailable Unavailable Chu Cruz PA-C Unavailable Dario Potter MD Unavailable Luis Miguel Woodson MD Unavailable Unavailable Daisy Mejia NP Unavailable Aruna Mart Unavailable Chris Ricketts DPM Unavailable Chris Ricketts DPM Unavailable Clem Maynard MD Unavailable [phone] Clem Maynard MD Unavailable Reason for Visit * Reason Onset Date Comments requesting orders 03/20/2021 Encounter Details Date Type Department Care Team (Late st Contact Info) Description 03/20/2021 Telephone [facility] [address] [facility] [address] [place] [address] Chu Cruz PA-C [address] [place] [address] requesting orders Social History Tobacco Use Types Packs/Day Years Used Date Smoking Tobacco: Former Smokeless Tobacco: Never Comments:only 6 months use Alcohol Use Standard Drinks/Week Comments Yes 0 (1 standard drink = 0.6 oz pur e alcohol) rarely PHQ-2 Answer Date Recorded PHQ-2 Score 3 02/26/2021 Comments No Sex and Gender Information Value Date Recorded Sex Assigned at Female 01/14/2021 7:41 PM PROCESS IMPROVEMENT ANALYST Legal Sex Female 6:11 PM CDT Gender Identity Female 01/14/2021 7:41 PM PROCESS IMPROVEMENT ANALYST Sexual Orientation Straight 01/14/2021 7: 41 PM PROCESS IMPROVEMENT ANALYST COVID-19 Exposure Response Date Recorded In [...] Janelle Vides - 03/20/2021 3:14 PM CDT [facility] now requests orders and shares plan of care/discharge summaries for some patients through [facility]. Please REPLY TO THIS MESSAGE OR ROUTE BACK TO THE AUTHOR in order to give authorization for orders when needed. This is considered a verbal order, you will still receive a faxedcopy of orders for signature. Thank you for your assistance in improving collaboration for our patients. ORDER PT to see pt 2X/wk times 2 wks and DATABASE SOFTWARE TECHNICIAN 1X/wk times 2 wks for safety needs. SW assessment for retirement care planning. Pt has been difficult to [...] documented as of this encounter Care Teams Tax Director Relationship Specialty Start Date End Date Chu Cruz PA-C [address] [address] PCP - General Physician Mechanical Service Technician 07/07/17 Minna Chawla RN [address] [address] Cone Treater Diabetes Education 06/30/18 Minna Chawla RN [address] [address] Cone Treater Diabetes Education 06/30/18 Chu Cruz PA-C [address] [address] Assigned PCP 11/14/17 Dario Potter MD [address] [place] [address] Assigned Musculoskeletal Provider 08/30/20 01/10/22 Luis Miguel Woodson MD Assigned Heart and Vascular Provider 08/30/20 06/26/22 Daisy Mejia NP [address] [address] Assigned Neuroscience Provider 09/07/21 03/05/23 Aruna Mart 9[address] [facility] [place] [address] Cone Treater 01/16/22 Chris Ricketts DPM [address] [place] [address] Assigned Musculoskeletal Provider 01/11/22 12/11/22 Chris Ricketts DPM [address] [place] [address] Assigned Surgical Provider 12/12/22 02/28/24 Clem Maynard MD [address] [place] [phone] Cardiovascular Disease 01/07/23 Clem Maynard MD [address] [place] [address] Assigned Heart and Vascular Provider 01/16/23 07/30/24 documented as of this encounter
--- OUTSIDE RECORDS SUMMARY | 2025-02-12 17:54 | XMS_ITS | Encounter Summary ---
Author Organization [facility] Address [address] [place] [address] Care Team Providers Care Bag Adjuster Name Role Phone Chu Cruz PA-C Primary Care Provider Minna Chawla RN Unavailable Unavailable Minna Chawla RN Unavailable Unavailable Chu Cruz PA-C Unavailable [phone] Luis Miguel Woodson MD Unavailable Unavailable Daisy Mejia SALES OPERATIONS ASSISTANT Unavailable [phone] Aruna Mart Unavailable [phone] Chris Ricketts DPM Unavailable [phone] Chris Ricketts DPM Unavailable [phone] Clem Maynard MD Unavailable [phone] Clem Maynard MD Unavailable Encounter Details Date Type Department Care Team (Late st Contact Info) Description 03/04/2022 [facility] [address] [address] Stoney Mckinney, RN Social History [...] Sex Assigned at Female 01/14/2021 7:41 PM CLOTHING PATTERNMAKER Legal Sex Female 6:11 PM CDT Gender Identity Female 01/14/2021 7:41 PM CLOTHING PATTERNMAKER Sexual Orientation Straight 01/14/2021 7: 41 PM CLOTHING PATTERNMAKER COVID-19 Exposure Response Date Recorded In the [...] documented as of this encounter Care Teams Bag Adjuster Relationship Specialty Start Date End Date Chu Cruz PA-C [address] [address] PCP - General Physician Browning Processor 07/07/17 Minna Chawla RN [address] [address] New Car Make Ready Worker Diabetes Education 06/30/18 Minna Chawla RN [address] [address] New Car Make Ready Worker Diabetes Education 06/30/18 Chu Cruz PA-C [address] [address] Assigned PCP 11/14/17 Luis Miguel Woodson MD Assigned Heart and Vascular Provider 08/30/20 06/26/22 Daisy Mejia NP [address] [place] [id number] Assigned Neuroscience Provider 09/07/21 03/05/23 Aruna Mart 919 [facility] [place] [address] New Car Make Ready Worker 01/16/22 Chris Ricketts DPM 9[address] [facility] [place] [address] Assigned Musculoskeletal Provider 01/11/22 12/11/22 Chris Ricketts DPM [address] [facility] [place] [address] Assigned Surgical Provider 12/12/22 02/28/24 Clem Maynard MD [address] [place] [phone] Cardiovascular Disease 01/07/23 Clem Maynard MD [address] [place] [phone] Assigned Heart and Vascular Provider 01/16/23 07/30/24 documented as of this encounter
--- OUTSIDE RECORDS SUMMARY | 2025-02-12 17:54 | XMS_ITS | Encounter Summary ---
Author Organization [place] Address [facility] [place] [address] Care Team Providers Care Social Media Assistant Name Role Phone Chu Cruz PA-C Primary Care Provider Minna Chawla RN Unavailable Unavailable Minna Chawla RN Unavailable Unavailable Chu Cruz PA-C Unavailable [phone] Luis Miguel Woodson MD Unavailable Unavailable Daisy Mejia JEWEL BEARING BROACHER Unavailable Aruna Mart Unavailable [phone] Chris Ricketts DPM Unavailable [phone] Chris Ricketts DPM Unavailable [phone] Clem Maynard MD Unavailable [phone] Clem Maynard MD Unavailable [phone] Encounter Details Date Type Department Care Team (Late st Contact Info) Description 03/03/2022 [facility] [address] [place] [address] Raphael Hi, MIKE Social History Tobacco [...] Sex Assigned at Female 01/14/2021 7:41 PM DESKTOP SUPPORT CONSULTANT Legal Sex Female 6:11 PM CDT Gender Identity Female 01/14/2021 7:41 PM DESKTOP SUPPORT CONSULTANT Sexual Orientation Straight 01/14/2021 7: 41 PM DESKTOP SUPPORT CONSULTANT COVID-19 Exposure Response Date Recorded In the [...] documented as of this encounter Care Teams Social Media Assistant Relationship Specialty Start Date End Date Chu Cruz PA-C [address] [address] PCP - General Physician Wash House Worker 07/07/17 Minna Chawla RN [address] [address] Bron[place] Diabetes Education 06/30/18 Minna Chawla RN [address] [address] [place] Diabetes Education 06/30/18 Chu Cruz PA-C [address] [address] Assigned PCP 11/14/17 Luis Miguel Woodson MD Assigned Heart and Vascular Provider 08/30/20 06/26/22 Daisy Mejia NP [address] [place] [address] Assigned Neuroscience Provider 09/07/21 03/05/23 Aruna Mart 919 [facility] [place] [address] Bron[place] 01/16/22 Chris Ricketts DPM 919 [facility] [place] [address] Assigned Musculoskeletal Provider 01/11/22 12/11/22 Chris Ricketts DPM 919 [facility] [place] [address] Assigned Surgical Provider 12/12/22 02/28/24 Clem Maynard MD [address] [place] [phone] Cardiovascular Disease 01/07/23 Clem Maynard MD [address] [place] [phone] Assigned Heart and Vascular Provider 01/16/23 07/30/24 documented as of this encounter
--- OUTSIDE RECORDS SUMMARY | 2025-02-12 17:54 | XMS_ITS | Encounter Summary ---
Author Organization [facility] Address [address] [place] [address] Care Team Providers Care Park Manager Name Role Phone Chu Cruz PA-C Primary Care Provider Minna Chawla RN Unavailable Unavailable Minna Chawla RN Unavailable Unavailable Chu Cruz PA-C Unavailable [phone] Luis Miguel Woodson MD Unavailable Unavailable Daisy Mejia PROOF LOAD MECHANIC Unavailable [phone] Aruna Mart Unavailable [phone] Chris Ricketts DPM Unavailable Chris Ricketts DPM Unavailable Clem Maynard MD Unavailable Clem Maynard MD Unavailable Encounter Details Date Type Department Care Team (Late st Contact Info) Description 06/01/2022 [facility] 290 [facility] 100 [place] [phone] Chu Cruz PA-C [address] [place] [address] Social History Tobacco Use Types Packs/Day Years Used Date Smoking Tobacco: Former Smokeless Tobacco: Never Comments:only 6 months use Alcohol Use Standard Drinks/Week Comments Yes 0 (1 standard drink = 0.6 oz pur e alcohol) rarely PHQ-2 Answer Date Recorded PHQ-2 Score 1 03/26/2022 Comments No Sex and Gender Information Value Date Recorded Sex Assigned at Female 01/14/2021 7:41 PM FILTER TIP INSPECTOR Legal Sex Female 6:11 PM CDT Gender Identity Female 01/14/2021 7:41 PM FILTER TIP INSPECTOR Sexual Orientation Straight 01/14/2021 7: 41 PM FILTER TIP INSPECTOR COVID-19 Exposure Response Date Recorded In [...] documented as of this encounter Care Teams Park Manager Relationship Specialty Start Date End Date Chu Cruz PA-C [address] [address] PCP - General Physician Sports Medicine Trainer 07/07/17 Minna Chawla RN [address] [address] Research Program Assistant Diabetes Education 06/30/18 Minna Chawla RN [address] [address] Research Program Assistant Diabetes Education 06/30/18 Chu Cruz PA-C [address] [place] [address] Assigned PCP 11/14/17 Luis Miguel Woodson MD Assigned Heart and Vascular Provider 08/30/20 06/26/22 Daisy Mejia NP [address] [place] [address] Assigned Neuroscience Provider 09/07/21 03/05/23 Aruna Mart [address] [place] [address] [place] [address] Research Program Assistant 01/16/22 Chris Ricketts DPM [address] [place] [address] [place] [id number] Assigned Musculoskeletal Provider 01/11/22 12/11/22 Chris Ricketts DPM 9 [facility] [place] [address] Assigned Surgical Provider 12/12/22 02/28/24 Clem Maynard MD [address] [place] [phone] Cardiovascular Disease 01/07/23 Clem Maynard MD [address] [place] [phone] Assigned Heart and Vascular Provider 01/16/23 07/30/24 documented as of this encounter
--- OUTSIDE RECORDS SUMMARY | 2025-02-12 17:54 | XMS_ITS | Encounter Summary ---
Author Organization [facility] Address [address] [place] [address] Care Team Providers Care Microfilm Processor Name Role Phone Leti Traylor MD Primary Care Provider [phone] Chu Cruz PA-C Primary Care Provider Minna Chawla RN Unavailable Unavailable Minna Chawla RN Unavailable Unavailable Chu Cruz PA-C Unavailable [phone] Chu Cruz PA-C Unavailable [phone] Lisa Riggs RN Unavailable [phone] Dario Potter MD Unavailable [phone] Luis Miguel Woodson MD Unavailable Unavailable Matheus Medina MD Unavailable [phone] Daisy Mejia NP Unavailable [phone] Aruna Mart Unavailable [phone] Chris Ricketts DPM Unavailable [phone] Chris Ricketts DPM Unavailable [phone] Clem Maynard MD Unavailable [phone] Clem Maynard MD Unavailable [phone] Reason for Visit * Reason Comments Medication Refill Encounter Details Date Type Department Care Team (Late Contact Info) Description 11/18/[address] [phone] Palmira Gil MD [address] [place] [address] Medication Refill Social History Tobacco Use Types Packs/Day Years Used Date Smoking Tobacco: Former Alcohol Use Standard Drinks/Week Comments Yes 0 (1 standard drink = 0.6 oz pur e alcohol) rarely Comments No Sex and Gender Information Value Date Recorded Sex Assigned at Female 01/14/2021 7:41 PM RESEARCH ASSISTANT MEMBER Legal Sex Female 6:11 PM CDT Gender Identity Female 01/14/2021 7:41 PM RESEARCH ASSISTANT MEMBER Sexual Orientation Straight 01/14/2021 7: 41 PM RESEARCH ASSISTANT MEMBER documented as of this encounter Miscellaneous Notes * Telephone Encounter - Yaya Elizalde RN - 11/19/2016 9:34 AM CST Pt's PCP, Dr. Traylor is at [facility], routing to PCP. Please advise. Yaya Elizalde RN, BSN ARCH ASSISTANT MEMBER * Telephone Encounter - Kayla Sandoval RN - 11/19/2016 7:15 AM RESEARCH ASSISTANT MEMBER Lisinopril Last Written Prescription Date: 10/31/16 Last Fill Quantity: 30, # refills: 0 Last Office Visit with [facility], [facility] or [facility] prescribing provider: 11/12/16 Next 5 appointments (look out 90 days) Dec 07, 2016 11:30 AM Return Visit with Dennys Ac[facility] [address] [place] [phone] POTASSIUM Date Value Ref Range Status 11/12/2016 4.6 3.4 - 5.3 mmol/L Final CREATININE Date Value Ref Range Status 11/12/2016 1.48* 0.52 - 1.04 mg/dL Final BP Readings from Last 3 Encounters: 11/12/16 130/80 10/31/16 127/88 10/26/16 102/70 ARCH ASSISTANT MEMBER documented in this encounter Plan of Treatment Not on file documented as of this encounter Visit Diagnoses Diagnosis Heart failure with reduced ejection fraction, NYHA class II (H)- Primary documented in this encounter Additional Health Concerns Infection Onset Date Last Indicated Resolved Time Rule Out COVID-19 09/26/2020 09/26/2020 09/27/2020 5:31 PM RESEARCH ASSISTANT MEMBER Rule Out COVID-19 05/28/2022 05/28/2022 05/28/2022 8:56 PM CDT Rule Out COVID-19 07/03/2022 07/03/2022 07/03/2022 6:55 PM CDT Assessment Noted Time PHQ-9 Depression Total Score: 3 11/13/19 7:08 AM RESEARCH ASSISTANT MEMBER documented as of this encounter Care Teams Microfilm Processor Relationship Specialty Start Date End Date Leti Traylor MD PCP - General Family Practice 07/20/16 06/02/17 Chu Cruz PA-C [address] [address] PCP - General Physician Senior Medical Director 07/07/17 Chu Cruz PA-C [address] [address] PCP - Assigned PCP 11/14/17 01/10/19 Minna Chawla RN [address] [address] Plaster Molder Diabetes Education 06/30/18 Minna Chawla RN [address] [address] Plaster Molder Diabetes Education 06/30/18 Chu Cruz PA-C [address] [place] [address] 100 [place] [address] Assigned PCP 11/14/17 Lisa Riggs RN Clinic Foundry Metallurgist Primary Care - CC 06/14/2006/16 Dario Potter MD [address] [place] [id number] Assigned Musculoskeletal Provider 08/30/20 01/10/22 Luis Miguel Woodson MD Assigned Heart and Vascular Provider 08/30/20 06/26/22 Matheus Medina MD [address] [place] [address] Assigned Surgical Provider 08/30/20 11/30/20 Daisy Mejia IRONER MACHINE [address] [facility] 450 [place], [place] [address] Assigned Neuroscience Provider 09/07/21 03/05/23 Aruna Mart [address] [place] [address], [place] [address] Plaster Molder 01/16/22 Chris Ricketts DPM [address] [place] [address] [place] [address] Assigned Musculoskeletal Provider 01/11/22 12/11/22 Chris Ricketts DPM [address] [facility] [place] [address] Assigned Surgical Provider 12/12/22 02/28/24 Clem Maynard MD [address] [place] [phone] Cardiovascular Disease 01/07/23 Clem Maynard MD [address] [place] [phone] Assigned Heart and Vascular Provider 01/16/23 07/30/24 documented as of this encounter
--- OUTSIDE RECORDS SUMMARY | 2025-02-12 17:54 | XMS_ITS | Clinical Summary ---
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 from [facility] [place] ? Nutrition Services Aide and model: Medtronic Versa Pacemaker. Date of [...] Assessment & Plan: Continue low intesity statin skilled nursing current use of anticoagulant therapy 0 06/26/2016 Overview (10/31/2021): Last Assessment & Plan: Somewhat subtherapeutic with an INR of 1.86 Pharmacy to manage Moderate recurrent major depression 06/26/2016 Overview (10/31/2021): Last Assessment & Plan: In remission Continue zoloft Recheck in 6 months Compression fracture of thor acic vertebra with routine healing Encounters Date Type Department Care Team Description 11/21/2024 Lab Requisition [facility] [phone] Unknown, Doctor 11/18/2024 Lab Requisition [facility] [address] [place] [address] Joel Persaud MD from Last 3 Months Immunizations Immunization Administration Dates Next Due Influenza, Inactivated AIIV4 [...] on file Legal Sex Female 6:06 AM GIMP BUTTONHOLE MACHINE OPERATOR Gender Identity Not on file Sexual Orientation Not on file Obstetrics History Last Filed Vital Signs Vital Sign Reading Time Taken Comments Blood Pressure 117/53 11/07/2021 8:05 AM GIMP BUTTONHOLE MACHINE OPERATOR Pulse 60 11/07/2021 8:05 AM GIMP BUTTONHOLE MACHINE OPERATOR Temperature 35.8 C (96.4 F) 11/07/2021 8:05 AM GIMP BUTTONHOLE MACHINE OPERATOR Respiratory Rate 16 11/07/2021 8:05 AM GIMP BUTTONHOLE MACHINE OPERATOR Oxygen Saturation 95% 11/07/2021 8:05 AM GIMP BUTTONHOLE MACHINE OPERATOR Inhaled Oxygen Concentration - - Weight 105.9 kg (233 lb 6.4 oz) 11/07/2021 6:00 AM GIMP BUTTONHOLE MACHINE OPERATOR Height 168.9 cm (5' 6.5) 10/31/2021 5:47 PM GIMP BUTTONHOLE MACHINE OPERATOR Body Mass Index 37.11 10/31/2021 5:47 PM GIMP BUTTONHOLE MACHINE OPERATOR Plan of Treatment Health Maintenance Due Date [...] 08/27/2023, 10/15/2022, 10/18/2021, Additional history exists Influenza Vaccine (Season Ended) 2025 11/01/20 21 Medical Devices Implanted Type Area Nutrition Services Aide Device Identifier Shelf Expiration Date Model / Serial / Lot [id number] - [id number] Implanted:Qty: 1 on 01/26/2017 by Paco Dobbins MD at [facility] [id number] / [id number] / Description:PROGRAMMABLE TOLU ROSTIMULATOR Lead Spinal 65cm 5-6-5 Specify Surescan Mri - [id number] Implanted:Qty: 1 on 09/26/2018 by Emigdio Cantu MD at [facility] N/A: Lumbar Vertebrae Medtronic Pain Therapy 05/02/2022 [id number] / / [id number] Description:NO STICKER JM Stimulator Spinal Intellis Mri - [id number] Implanted:Qty: 1 on 09/26/2018 by Emigdio Cantu MD at [facility] N/A: Lumbar Vertebrae Medtronic Pain Therapy 06/21/2019 [id number] / [id number] / Description:NO STICKER JM Envlp Neuro Tyrx Absorb Antibacterial - [id number] Implanted:Qty: 1 on 09/26/2018 by Emigdio Cantu MD at [facility] N/A: Lumbar Vertebrae Medtronic 11/07/2018 [id number] / / [id number] Description:NO STICKER JM Procedures Procedure Name Priority Date/Time Associated Diagnosis Comments HEMOGLOBIN A1C Routine 11/22/2024 7:17 AM GIMP BUTTONHOLE MACHINE OPERATOR Type 2 diabetes mellitus without complications (HC) URINE CULTURE Routine 11/17/2024 8:00 PM GIMP BUTTONHOLE MACHINE OPERATOR Type 2 diabetes mellitus without complications (HC) Urinary tract infection, site not specified from Last 3 Months Results * (ABNORMAL) HEMOGLOBIN A1C (11/22/2024 7:17 AM GIMP BUTTONHOLE MACHINE OPERATOR) HEMOGLOBIN A1C SCREENING 8.0(H) <=6.4 % 11/22/2024 8:25 AM [facility] Blood BLOOD SPECIMEN / Unknown Butterfly / Unknown 11/22/2024 7:17 AM GIMP BUTTONHOLE MACHINE OPERATOR 11/22/2024 8:17 AM GIMP BUTTONHOLE MACHINE OPERATOR [facility] LABORATORY - 11/22/2024 8:25 AM GIMP BUTTONHOLE MACHINE OPERATOR (<5.7%) Normal (5.7% to 6.4%) Indicates prediabetes (>=6.5%) Confirms diabetes Falsely low levels may be seen with: Recent Transfusion, Recent Significant Blood Loss, Hemolytic Diseases, or Falsely elevated levels may be seen with: Untreated Anemias, Splenectomy us Doctor Unknown CHEMISTRY Final Result [facility] [address] [place] [address] * (ABNORMAL) URINE CULTURE (11/17/2024 8:00 PM GIMP BUTTONHOLE MACHINE OPERATOR) CULTURE RESULT(A) 11/21/2024 9:46 AM [facility]-C ENTRDE LABORATORY CULTURE >100,000 CFU/mL Enterococcus faecium 11/21/2024 9:46 AM [facility] Comment: Levofloxacin susceptibilities for Enterococcus available upon request for urine isolates ONLY. Levofloxacin is not routinely recommended for Enterococcus and can ONLY be used for infections isolated in the urinary tract. In the setting of polymicrobial urine cultures, Enterococcus often represents colonization and may not necessitate treatment. CULTURE 10,000-50,000 CFU/mL Enterobacter cloacae complex 11/21/2024 9:46 AM [facility] Comment: May develop resistance during prolonged therapy with 3rd-generation cephalosporins as a result of derepression of AmpC beta-lactamase. Therefore, isolates that are initially susceptible may become resistant within 3 to 4 days after initiation of therapy. Testing repeat isolates may be warranted. Oral cephalosporins are also not recommended. CULTURE 10,000-50,000 CFU/mL Multiple organisms probable contaminants 11/21/2024 9:46 AM [facility]-C ENTRAL LABORATORY Urine URINE SPECIMEN / Unknown Client Collect / Unknown 11/17/2024 8:00 PM GIMP BUTTONHOLE MACHINE OPERATOR 11/18/2024 6:19 PM GIMP BUTTONHOLE MACHINE OPERATOR Narrative Organism Antibiotic Method Susceptibility Enterococcus faecium LEVOFLOXACIN 2: S Enterococcus faecium AMPICILLIN >=32: R Enterococcus faecium NITROFURANTOIN 64: I Joel Persaud MD MICROBIOLOGY Final Result [facility]AL LABORATORY [address] [place] [id number], from Last 3 Months Insurance MEDICARE PART B HB ONLY BLUE CROSS [place] BLUE MR PB ONLY TRAVELERS Advance Directives [...] 12:45 PM 01/26/2017 9:36 PM Care Teams Poultry Hanger Relationship Specialty Start Date End Date Anisa Matthews SCRAP BALLER [address] [place] [address] PCP - General Emergency Medicine 08/08/24
--- OUTSIDE RECORDS SUMMARY | 2025-02-12 17:54 | XMS_ITS | Encounter Summary ---
Author Organization [facility] Address [address] [place] [address] Care Team Providers Care Talent Acquisition Sourcer Name Role Phone Maggie Gallarod P.A.-C. Primary Care Provid er Encounter Details Date Type Department Care Team (Late st Contact Info) Description 12/13/2024 Clinical Communication Department of Family Medicine, [facility], in [place], [place] [address] [place] [address] Maggie Gallardo P.A.-C. [address] [place] [address] Social History Tobacco Use Types Packs/Day Years Used Date Smoking Tobacco: Never Smokeless Tobacco: Never Alcohol Use Standard Drinks/Week Comments Not Currently 0 (1 standard drink = 0.6 oz pur e alcohol) [facility] Utilities Answer Date Recorded In the past 12 months has [facility] [employer], gas, oil, or water [employer] threatened to shut off services in your [...] your living situation today? I have a [facility] place to live 10/30/2024 Comments Unknown Sex and Gender Information Value Date Recorded Sex Assigned at Not on file Legal Sex Female 6:45 PM CDT Gender Identity Not on file Sexual Orientation Not on file documented as of this encounter Plan of Treatment Not on file documented as of this encounter Visit Diagnoses Not on filedocumented in this encounter Care Teams Talent Acquisition Sourcer Relationship Specialty Start Date End Date Maggie Gallardo P.A.-C. [address] [place] [address] PCP - General Family Medicine 11/14/24 documented as of this encounter
--- OUTSIDE RECORDS SUMMARY | 2025-02-12 17:54 | XMS_ITS ---
Author Organization [facility] Address [address] [place] [address] [address] [place] [address] Care Team Providers Care Web Development Director Name Role Phone Chu Cruz PA-C Primary Care Provider Felipe Lester [phone] Jerardo Washington Unavailable Unavailable REASON FOR VISIT pain and SCS Encounters Encounter Location Date Provider Diagnosis [facility] [address] [place] [address] [address] [place] [address] 12/11/2024 Felipe Sandoval Plan Of Treatment No Information Progress Notes * Hayde FONG DDOB: [birth year] (89 yo F)Acc No.[id number]:12/11/2024 Patient: Jyotsna Hayde FERNANDEZ :1935 A ge:89 Y S ex:Female Address:[address] [place] [address], Apar tment [facility], [place], [address] * true * Date: Generated for Printi ng/Faxing/eTransmitting on: 0 02/12/2025 05:53 PM CDT
--- OUTSIDE RECORDS SUMMARY | 2025-02-12 17:54 | XMS_ITS | Encounter Summary ---
Author Organization [facility] Address [address] [place] [address] Care Team Providers Care Mail Clerks Supervisor Name Role Phone Chu Cruz PA-C Primary Care Provider Minna Chawla RN Unavailable Unavailable Minna Chawla RN Unavailable Unavailable Chu Cruz PA-C Unavailable [phone] Dario Potter MD Unavailable Luis Miguel Woodson MD Unavailable Unavailable Daisy Mejia NP Unavailable Aruna Mart Unavailable [phone] Chris Ricketts DPM Unavailable [phone] Chris Ricketts DPM Unavailable [phone] Clem Maynard MD Unavailable [phone] Clem Maynard MD Unavailable [phone] Encounter Details Date Type Department Care Team [...] Sex Assigned at Female 01/14/2021 7:41 PM MOLD CLAMPER Legal Sex Female 6:11 PM CDT Gender Identity Female 01/14/2021 7:41 PM MOLD CLAMPER Sexual Orientation Straight 01/14/2021 7: 41 PM MOLD CLAMPER COVID-19 Exposure Response Date Recorded In the [...] documented as of this encounter Care Teams Mail Clerks Supervisor Relationship Specialty Start Date End Date Chu Cruz PA-C [address] [address] PCP - General Physician Supervisor Machining 07/07/17 Minna Chawla RN [address] [address] Light Industrial Supervisor Diabetes Education 06/30/18 Minna Chawla RN [address] [address] Light Industrial Supervisor Diabetes Education 06/30/18 Chu Cruz PA-C [address] [address] Assigned PCP 11/14/17 Dario Potter MD [address] [place] [address] Assigned Musculoskeletal Provider 08/30/20 01/10/22 Luis Miguel Woodson MD Assigned Heart and Vascular Provider 08/30/20 06/26/22 Daisy Mejia MECHANISM ASSEMBLER [address] [place] [address] Assigned Neuroscience Provider 09/07/21 03/05/23 Aruna Mart [address] [place] [address] Light Industrial Supervisor 01/16/22 Chris Ricketts DPM [address] [facility] [address] Assigned Musculoskeletal Provider 01/11/22 12/11/22 Chris Ricketts DPM [address] [facility] [place], [place] [address] Assigned Surgical Provider 12/12/22 02/28/24 Clem Maynard MD [address] [place] [phone] Cardiovascular Disease 01/07/23 Clem Maynard MD [address] [place] [phone] Assigned Heart and Vascular Provider 01/16/23 07/30/24 documented as of this encounter
--- OUTSIDE RECORDS SUMMARY | 2025-02-12 17:54 | XMS_ITS | Encounter Summary ---
Author Organization [facility] Address [facility] [place] [address] Care Team Providers Care Operations Support Coordinator Name Role Phone Chu Cruz PA-C Primary Care Provider Minna Chawla RN Unavailable Unavailable Minna Chawla RN Unavailable Unavailable Chu Cruz PA-C Unavailable Dario Potter MD Unavailable Luis Miguel Woodson MD Unavailable Unavailable Daisy Mejia NP Unavailable Aruna Mart Unavailable Chris Ricketts DPM Unavailable [phone] Chris Ricketts DPM Unavailable [phone] Clem Maynard MD Unavailable Clem Maynard MD Unavailable [phone] Reason for Visit * Reason Onset Date Comments medication notification 03/03/2021 Encounter Details Date Type Department Care Team (Late st Contact Info) Description 03/03/2021 Telephone [facility] [address] [facility] [address] [place] [phone] Chu Cruz PA-C [address] [place] [address] medication notification Social History Tobacco Use Types Packs/Day Years Used Date Smoking Tobacco: Former Smokeless Tobacco: Never Comments:only 6 months use Alcohol Use Standard Drinks/Week Comments Yes 0 (1 standard drink = 0.6 oz pur e alcohol) rarely PHQ-2 Answer Date Recorded PHQ-2 Score 3 02/26/2021 Comments No Sex and Gender Information Value Date Recorded Sex Assigned at Female 01/14/2021 7:41 PM SAFETY DEPOSIT SUPERVISOR Legal Sex Female 6:11 PM CDT Gender Identity Female 01/14/2021 7:41 PM SAFETY DEPOSIT SUPERVISOR Sexual Orientation Straight 01/14/2021 7: 41 PM SAFETY DEPOSIT SUPERVISOR COVID-19 Exposure Response Date Recorded In the [...] documented as of this encounter Care Teams Operations Support Coordinator Relationship Specialty Start Date End Date Chu Cruz PA-C [address] [place] [address] PCP - General Physician Shear Scrapman 07/07/17 Minna Chawla, RN [address] [place] [address] Health Aide Diabetes Education 06/30/18 Minna Chawla, RN [address] [address] Health Aide Diabetes Education 06/30/18 Chu Cruz PA-C [address] [address] Assigned PCP 11/14/17 Dario Potter MD [address] [place] [address] Assigned Musculoskeletal Provider 08/30/20 01/10/22 Luis Miguel Woodson MD Assigned Heart and Vascular Provider 08/30/20 06/26/22 Daisy Mejia NP [address] [address] Assigned Neuroscience Provider 09/07/21 03/05/23 Aruna Mart [address] [place] [address] [place] [address] Health Aide 01/16/22 Chris Ricketts DPM [address] [place] [address] [place] [address] Assigned Musculoskeletal Provider 01/11/22 12/11/22 Chris Ricketts DPM [address] [place] [address] [place] [address] Assigned Surgical Provider 12/12/22 02/28/24 Clem Maynard MD [address] [place] [phone] Cardiovascular Disease 01/07/23 Clem Maynard MD [address] [place] [phone] Assigned Heart and Vascular Provider 01/16/23 07/30/24 documented as of this encounter
--- OUTSIDE RECORDS SUMMARY | 2025-02-12 17:54 | XMS_ITS | Encounter Summary ---
Author Organization [facility] Address [address] [place] [address] Care Team Providers Care Environmental Services Manager Name Role Phone Maggie Gallardo P.A.-C. Primary Care Provid er Encounter Details Date Type Department Care Team (Late st Contact Info) Description 02/07/2025 Clinical Communication Department of Family Medicine, [facility], in [place], [place] [address] [place] [address] Maggie Gallardo P.A.-C. [address] [place] [address] Social History Tobacco Use Types Packs/Day Years Used Date Smoking Tobacco: Never Smokeless Tobacco: Never Alcohol Use Standard Drinks/Week Comments Not Currently 0 (1 standard drink = 0.6 oz pur e alcohol) [facility] Utilities Answer Date Recorded In the past 12 months has [facility] [employer], gas, oil, or water [employer] threatened to shut off services in your [...] your living situation today? I have a [facility] place to live 10/30/2024 Comments Unknown Sex and Gender Information Value Date Recorded Sex Assigned at Not on file Legal Sex Female 6:45 PM CDT Gender Identity Not on file Sexual Orientation Not on file documented as of this encounter Miscellaneous Notes * Telephone Encounter - Phylicia Claudio - 02/07/2025 1:24 PM CDT SEMN Nurse Message Reason for Communication: calling from [facility] looking to get orders for patient to starttomorrow. Current Can Nursing/Provider leave a detailed message? no Did the patient refuse triage through Nurse line? (for symptom-based concerns): n/a Action Needed: call back Name of Medication (if relevant): n/a Please send all scheduling replies to scheduling pool. documented in this encounter Plan of Treatment Not on file documented as of this encounter Visit Diagnoses Not on filedocumented in this encounter Care Teams Environmental Services Manager Relationship Specialty Start Date End Date Maggie Gallardo P.A.-C. [address] [place] [phone] PCP - General Family Medicine 11/14/24 documented as of this encounter
--- OUTSIDE RECORDS SUMMARY | 2025-02-12 17:54 | XMS_ITS | Clinical Summary ---
Author Organization [facility] Address [address] [place] [address] Care Team Providers Care Software Engineer Web Applications Name Role Phone Maggie Gallardo P.A.-C. Primary Care Provid er Source Comments Patient records contain information from all sites at [facility]. For routine questions regarding patient records, call [phone] during business hours, M-F 8:00 AM - 5:00 PM Central Time. Record requests for emergency care only can be directed to [phone] at any time.[facility] Allergies Active Allergy Reactions Criticality Noted Date [...] with meals. Hold dose if not eating Active empagliflozin (Jardiance) 10 mg tablet Take [...] Acute Pain/Traumatic Injury. 20 tablet 5 Active Active Problems Problem Noted Date Diagnosed Date Fracture Pubis Subsequent With Routine Healing L eft 11/24/2024 Overview (11/24/2024): Hospitalized 10/30 until 11/07/2024 with mildly displaced acute comminuted fracture of the left pubic symphysis and adjacent pubic rami. Small-volume adjacent blood products and intramuscular hematomas. Assessment & Plan (11/24/2024 9:16 PM [employer]): Pain management with acetaminophen, oxycodone, pregabalin. She is working with therapies. Fracture Sacrum Closed Subsequent 11/24/2024 Overview (11/24/2024): Comminuted fracture of the left pubic symphysis and adjacent pubic rami. Small- volume adjacent blood products and intramuscular hematomas. Mildly displaced fracture of the left sacral ala. Assessment & Plan (11/24/2024 9:16 PM [employer]): Discharged to [facility]. Acetaminophen, pregabalin, and oxycodone for pain control. Apixaban continued. Pacemaker Cardiac Status Post 11/24/2024 Assessment & Plan (11/24/2024 9:16 PM [employer]): Most recent pacemaker interrogation visible In Epic from 2022. She does get her care through [facility] [place] [facility] and [facility]. History Of Falling 11/24/2024 Overview (11/24/2024): Fall 10/30/2024 resulting in sacrum and pubis fractures. Assessment & Plan (11/24/2024 9:16 PM [employer]): She is working with therapies to improve strength, stamina, balance. Fpc Use Of Insulin Active 11/24/2024 Assessment & Plan (11/24/2024 9:16 PM [employer]): Assessment & Plan (11/24/2024 9:16 PM [employer]): Fpc (Current) Anticoagulant Treatment 11/08 Overview (11/24/2024): On apixaban in the setting of atrial fibrillation. Assessment & Plan (11/24/2024 9:16 PM [employer]): Assessment & Plan (11/24/2024 9:16 PM [employer]): Continue apixaban. Fracture Sacrum Closed Initial 10/30/2024 Atrial Fibrillation Longstanding Persistent 10/09 Assessment & Plan (11/24/2024 9:16 PM [employer]): Continue metoprolol and apixaban. Chronic Kidney Disease (CKD), Stage 3 Unspecifie d 10/30/2024 Overview (11/24/2024): Hospitalization October 2024 Acute on chronic kidney injury with creatinine increased to 2.06 from baseline of 1.5. This was felt secondary to urine retention, urine infection, venous congestion, prerenal. Assessment & Plan (11/24/2024 9:16 PM [employer]): Most recent GFR 27. Creatinine downtrending. Diabetes Mellitus Type 2 10/30/2024 Assessment & Plan (11/24/2024 9:16 PM [employer]): Most recent A1c 8.8. On short-acting, long-acting insulins and dapagliflozin as therapeutic interchange for empagliflozin. Blood sugars checked 4 times daily. Generally in the 1 to 200s. Block Atrioventricular Complete 10/30/2024 Hyperlipidemia 10/30/2024 Delirium (not otherwise specified) 01/20/2024 Change Mental Status 01/19/2024 Elevated Troponin 01/19/2024 Pain Chest 01/24/2023 Encounters Date Type Department Care Team Description 02/07/2025 Clinical Communication Department of [facility], in [place], [place] [address] [place] [phone] Maggie Gallardo, P.A.-C. 12/13/2024 Clinical Communication Department of [facility], in [place], [place] [address] [place] [phone] Maggie Gallardo, P.A.-C. 12/12/2024 Orders Only [facility] Maggie Gallardo, P.A.-C. Diabetes Mellitus Type 2 (HCC) 12/08/2024 Clinical Communication Department of [facility], in [place], [place] [address] [place] [place] [address] [phone] Maggie Gallardo P.A.-C. PandaDoc Form (Jenifer order [id number]) from Last 3 Months Immunizations Immunization Administration [...] drink = 0.6 oz pur e alcohol) [facility] Utilities Answer Date Recorded In the past 12 months has e [employer], [employer], oil, or water [employer] threatened to shut off services in your [...] your living situation today? I have a [facility] place to live 10/30/2024 Comments Unknown Sex and Gender Information Value Date Recorded Sex Assigned at Not on file Legal Sex Female 6:45 PM CDT Gender Identity Not on file Sexual Orientation Not on file Last Filed Vital Signs Vital Sign Reading Time Taken Comments Blood Pressure 135/63 11/10/2024 7:30 AM [employer] Pulse 61 11/10/2024 7:30 AM [employer] Temperature 36.6 C (97.8 F) 11/10/2024 7:30 AM [employer] Respiratory Rate 18 11/10/2024 7:30 AM [employer] Oxygen Saturation 96% 11/10/2024 7:30 AM [employer] Inhaled Oxygen Concentration - - Weight 90.7 kg (200 lb) 11/10/2024 7:30 AM [employer] Height 165 cm (5' 4.96) 10/31/2024 12:43 PM [employer] Body Mass Index 33.32 10/31/2024 12:43 PM [employer] Plan of Treatment Health Maintenance Due Date [...] this topic Medical Devices Implanted Type Area Property Insurance Claims Examiner Device Identifier Shelf Expiration Date Model / Serial / Lot Medtronic 4076 Capsurefix Novus Mri Surescan [id number] Implanted:07/2011 (Quantity not on file) Cardiac Lead Medtronic 4076 CAPSUREFIX NOVUS MRI SURESCAN / [id number] / Medtronic 4076 Capsurefix Novus Mri Surescan [id number] Implanted:07/2011 (Quantity not on file) Cardiac Lead Medtronic 4076 CAPSUREFIX NOVUS MRI SURESCAN / [id number] / Medtronic [id number] Altagracia Xt Dr Barnes [id number] Implanted:12/09 (Quantity not on file) Pacemaker Medtronic [id number] ALTAG[address] BARNES / [id number] / Procedures Procedure Name Priority Date/Time Associated Diagnosis Comments RENAL FUNCTION PANEL, S Timed 11/07/2024 4:56 AM [employer] HEMOGLOBIN A1C, B Routine 11/02/2024 10: 14 PM [employer] from Last 3 Months or Most Recently Relevant to Health Maintenance Results * (ABNORMAL) Renal Function Panel (11/07/2024 4:56 AM [employer]) Potassium, S 4.8 3.6 - 5.2 mmol/L 11/07/2024 6:17 AM [employer] DTL Sodium, S 139 135 - 145 mmol/L 11/07/2024 6:17 AM [employer] DTL Chloride, S 103 98 - 107 mmol/L 11/07/2024 6:17 AM [employer] DTL Bicarbonate, S 25 22 - 29 mmol/L 11/07/2024 6:17 AM [employer] DTL Anion Gap 11 7 - 15 11/07/2024 6:17 AM [employer] DTL BUN (Blood Urea Nitrogen), S 59(H) 6 - 21 mg/dL 11/07/2024 6:17 AM [employer] DTL Creatinine 1.81(H) 0.59 - 1.04 mg/dL 11/07/2024 6:17 AM [employer] DTL Estimated GFR (eGFR) 27(L) >=60 mL/min/BSA 11/07/2024 6:17 AM [employer] DTL Comment: Estimated GFR calculated using the 2020 CKD_EPI creatinine equation. Calcium, Total, S 9.1 8.8 - 10.2 mg/dL 11/07/2024 6:17 AM [employer] DTL Glucose, S 179(H) 70 - 140 mg/dL 11/07/2024 6:17 AM [employer] DTL Albumin, S 3.1(L) 3.5 - 5.0 g/dL 11/07/2024 6:17 AM [employer] DTL Phosphorus (Inorganic), S 4.5 2.5 - 4.5 mg/dL 11/07/2024 6:17 AM [employer] DTL Blood (Blood, Venous) 11/07/2024 4:56 AM [employer] 11/07/2024 5:57 AM [employer] us Joshua Sharif Jr., M.D. LAB BLOOD ADD-ON Final Result [facility] [address] [place] [address], [facility] DTL [facility] [address] [place] [address] from Last 3 Months or Most Recently Relevant to Health Maintenance Insurance * Guarantor: Hayde Fong Account Type Relation to Patient Date of Phone Billing Address Personal/Family Self [address], [address] [place] [address] [employer] MEDICARE Advance Directives For more information, please contact: [phone] * DNR/DNI (Latest Code Status on File) [...] 2:14 AM 01/29/2023 5:02 PM Care Teams Software Engineer Web Applications Relationship Specialty Start Date End Date Maggie Gallardo P.A.-C. [place] [phone] PCP - General Family Medicine 11/14/24
--- OUTSIDE RECORDS SUMMARY | 2025-02-12 17:54 | XMS_ITS | Encounter Summary ---
Author Organization [facility] Address [facility] [place] [address] Care Team Providers Care Stave Bolt Equalizer Name Role Phone Chu Cruz PA-C Primary Care Provider Minna Chawla RN Unavailable Unavailable Minna Chawla RN Unavailable Unavailable Chu Cruz PA-C Unavailable [phone] Daisy Mejia VISCOSITY INSPECTOR Unavailable Aruna Mart Unavailable Chris Ricketts DPM Unavailable [phone] Chris Ricketts DPM Unavailable Clem Maynard MD Unavailable [phone] Clem Maynrad MD Unavailable [phone] Encounter Details Date Type Department Care Team (Late st Contact Info) Description 07/24/2022 [facility] [address] [place] [address] Gabbie Shankar, RN Social History [...] Sex Assigned at Female 01/14/2021 7:41 PM [employer] Legal Sex Female 6:11 PM CDT Gender Identity Female 01/14/2021 7:41 PM [employer] Sexual Orientation Straight 01/14/2021 7: 41 PM [employer] COVID-19 Exposure Response Date Recorded In [...] documented as of this encounter Care Teams Stave Bolt Equalizer Relationship Specialty Start Date End Date Chu Cruz PA-C [address] [address] PCP - General Physician Data Visualization Developer 07/07/17 Minna Chawla RN [address] [address] Engineering Design Supervisor Diabetes Education 06/30/18 Minna Chawla RN [address] [address] Engineering Design Supervisor Diabetes Education 06/30/18 Chu Cruz PA-C [address] [address] Assigned PCP 11/14/17 Daisy Mejia NP [address] [address] Assigned Neuroscience Provider 09/07/21 03/05/23 Aruna Mart [address] [place] [address] Engineering Design Supervisor 01/16/22 Chris Ricketts DPM [address] [facility] [address] [place], [place] [address] Assigned Musculoskeletal Provider 01/11/22 12/11/22 Chris Ricketts DPM [address] [facility] [address] [place], [place] [address] Assigned Surgical Provider 12/12/22 02/28/24 Clem Maynard MD [address] [place] [address] Cardiovascular Disease 01/07/23 Clem Maynard MD [address] [place] [address] Assigned Heart and Vascular Provider 01/16/23 07/30/24 documented as of this encounter
--- OUTSIDE RECORDS SUMMARY | 2025-02-12 17:54 | XMS_ITS | Encounter Summary ---
Author Organization [facility] Address [address] [place] [address] Care Team Providers Care Integrated Marketing Manager Name Role Phone Chu Cruz PA-C Primary Care Provider Minna Chawla RN Unavailable Unavailable Minna Chawla RN Unavailable Unavailable Chu Cruz PA-C Unavailable [phone] Luis Miguel Woodson MD Unavailable Unavailable Daisy Mejia FUSE SPOOLER Unavailable Aruna Mart Unavailable Chris Ricketts DPM Unavailable [phone] Chris Ricketts DPM Unavailable [phone] Clem Maynard MD Unavailable [phone] Clem Maynard MD Unavailable [phone] Encounter Details Date Type Department Care Team (Late st Contact Info) Description 05/13/2022 [facility] [place] [facility] [address] [address] Lazara Ayers MA Social History [...] Sex Assigned at Female 01/14/2021 7:41 PM RN PLASTIC SURGERY Legal Sex Female 6:11 PM CDT Gender Identity Female 01/14/2021 7:41 PM RN PLASTIC SURGERY Sexual Orientation Straight 01/14/2021 7: 41 PM RN PLASTIC SURGERY COVID-19 Exposure Response Date Recorded In the [...] documented as of this encounter Care Teams Integrated Marketing Manager Relationship Specialty Start Date End Date Chu Cruz PA-C [address] [address] PCP - General Physician Customer Service Sales Associate 07/07/17 Minna Chawla RN [address] [address] Respiratory Care Technician Diabetes Education 06/30/18 Minna Chawla RN [address] [address] Respiratory Care Technician Diabetes Education 06/30/18 Chu Cruz PA-C [address] [address] Assigned PCP 11/14/17 Luis Miguel Woodson MD Assigned Heart and Vascular Provider 08/30/20 06/26/22 Daisy Mejia NP [address] [place] [place] [address] Assigned Neuroscience Provider 09/07/21 03/05/23 Aruna Mart [address] [facility] [place] [place], [place] [address] Respiratory Care Technician 01/16/22 Chris Ricketts DPM [address] [facility] [address] [place], [place] [address] Assigned Musculoskeletal Provider 01/11/22 12/11/22 Chris Ricketts DPM [address] [facility] [place] [address] Assigned Surgical Provider 12/12/22 02/28/24 Clem Maynard MD [address] [place] [phone] Cardiovascular Disease 01/07/23 Clem Maynard MD [address] [place] [phone] Assigned Heart and Vascular Provider 01/16/23 07/30/24 documented as of this encounter
--- OUTSIDE RECORDS SUMMARY | 2025-02-12 17:54 | XMS_ITS | Encounter Summary ---
Author Organization [facility] Address Replaced by [facility] [place] [address] Care Team Providers Care Bottom Man Name Role Phone Leti Traylor MD Primary Care Provider [phone] Chu Cruz PA-C Primary Care Provider Minna Chawla RN Unavailable Unavailable Minna Chawla RN Unavailable Unavailable Chu Cruz PA-C Unavailable [phone] Chu Cruz PA-C Unavailable [phone] Lisa Riggs RN Unavailable [phone] Dario Potter MD Unavailable [phone] Luis Miguel Woodson MD Unavailable Unavailable Matheus Medina MD Unavailable [phone] Daisy Mejia NP Unavailable Aruna Mart Unavailable [phone] Chris Ricketts DPM Unavailable [phone] Chris Ricketts DPM Unavailable [phone] Clem Maynard MD Unavailable [phone] Clem Maynard MD Unavailable [phone] Reason for Visit * Reason Comments Medication Refill Amiodarone Encounter Details Date Type Department Care Team (Late st Contact Info) Description 01/14/[address] [place] [phone] Leti Traylor MD [facility] [address] [place] [address] Medication Refill (Amiodarone) Social History Tobacco Use Types Packs/Day Years Used Date Smoking Tobacco: Former Alcohol Use Standard Drinks/Week Comments Yes 0 (1 standard drink = 0.6 oz pur e alcohol) rarely Comments No Sex and Gender Information Value Date Recorded Sex Assigned at Female 01/14/2021 7:41 PM [employer] Legal Sex Female 6:11 PM CDT Gender Identity Female 01/14/2021 7:41 PM [employer] Sexual Orientation Straight 01/14/2021 7: 41 PM [employer] documented as of this encounter Miscellaneous Notes * Telephone Encounter - Mariann Oliveira RN - 01/18/2017 8:08 AM CDT Routing refill request to provider for review/approval because: Drug not on the [facility] ref[facility] A break in medication, should have completed medication 12/13/2016 Mariann Oliveira RN * Telephone Encounter - Gregorio Hutchinson - 01/14/2017 1:53 PM CST Amiodarone Last Written Prescription Date: 11/12/2016 Last Fill Quantity: 30, # refills: 0 Last Office Visit with [email or web address] or [facility] prescribing provider: 11/12/2016 Lab Results Component [...] Final Gregorio Hutchinson MA January 14, 2017 [employer] documented in this encounter Plan of Treatment Not on file documented as of this encounter Visit Diagnoses Diagnosis Atrial fibrillation with RVR (H) Atrial fibrillation documented in this encounter Additional Health Concerns Infection Onset Date Last Indicated Resolved Time Rule Out COVID-19 09/26/2020 09/26/2020 09/27/2020 5:31 PM [employer] Rule Out COVID-19 05/28/2022 05/28/2022 05/28/2022 8:56 PM CDT Rule Out COVID-19 07/03/2022 07/03/2022 07/03/2022 6:55 PM CDT Assessment Noted Time PHQ-9 Depression Total Score: 3 11/13/19 17 7:08 AM [employer] documented as of this encounter Care Teams Bottom Man Relationship Specialty Start Date End Date Leti Traylor MD PCP - General Family Practice 07/20/16 06/02/17 Chu Cruz PA-C [address] [address] PCP - General Physician High School Director 07/07/17 Chu Cruz PA-C [address] [address] PCP - Assigned PCP 11/14/17 01/10/19 Minna Chawla RN [address] [address] Medical Technologist Chief Diabetes Education 06/30/18 Minna Chawla RN [address] [address] Medical Technologist Chief Diabetes Education 06/30/18 Chu Cruz PA-C [address] [facility] [address] [place] [address] Assigned PCP 11/14/17 Lisa Riggs RN [facility] [employer] Electrical Fitter Primary Care - CC 06/14/2006/16 Dario Potter MD [address] [place] [id number] Assigned Musculoskeletal Provider 08/30/20 01/10/22 Luis Miguel Woodson MD Assigned Heart and Vascular Provider 08/30/20 06/26/22 Matheus Medina MD [address] [place], [place] [address] Assigned Surgical Provider 08/30/20 11/30/20 Daisy Mejia NP [address] [facility] [address] [place], [place] [address] Assigned Neuroscience Provider 09/07/21 03/05/23 Aruna Mart [address] [place] [id number] Medical Technologist Chief 01/16/22 Chris Ricketts DPM [address] [place] [address] [place] [address] Assigned Musculoskeletal Provider 01/11/22 12/11/22 Chris Ricketts DPM [address] [facility] [place] [address] Assigned Surgical Provider 12/12/22 02/28/24 Clem Maynard MD [address] [place] [phone] Cardiovascular Disease 01/07/23 Clem Maynard MD [address] [place] [phone] Assigned Heart and Vascular Provider 01/16/23 07/30/24 documented as of this encounter
--- NOTE | 2025-02-12 18:04 | CRLHL7_ITS ---
For Patients: As a result of the Century Cures Act, medical imaging exams and procedure reports are released immediately into your electronic medical record. You may view this report before your referring provider. If you have questions, please contact your health care provider. Indication: Right upper quadrant abdominal pain Technique: CT through the abdomen and pelvis following 95 mL Isovue 370 IV contrast Comparison: Same-day right upper quadrant ultrasound Findings: Lower chest: No acute abnormality appreciated. Hepatobiliary: No significant parenchymal abnormality is appreciated. Status post cholecystectomy. Intrahepatic and extrahepatic biliary dilation with the common bile duct measuring up to 17 millimeters. Spleen: Unremarkable. Pancreas: Pancreatic parenchymal atrophy and dilation of the pancreatic duct. Adrenal glands: No acute abnormality appreciated. Kidneys: No significant parenchymal abnormality appreciated. No visualized calculi. No hydronephrosis. Bowel: No obstruction. No focal perienteric or pericolonic stranding is appreciated. Vascular: Calcified atherosclerosis. Lymph nodes: No gross lymphadenopathy. Peritoneum: No free air. No free fluid. : Wall thickening of the bladder with adjacent stranding. Soft tissues: No acute abnormality appreciated. Bones: No acute fracture. No lytic or blastic lesion. Chronic thoracolumbar compression fractures. Spinal stimulator leads. Degenerative changes of the spine and pelvis. Evolving pelvic fractures. Impression: 1. Significant wall thickening of the bladder with adjacent stranding concerning for UTI/cystitis. 2. Intrahepatic and extrahepatic biliary dilation. Note is also made of pancreatic parenchymal atrophy and ductal dilation. Correlation with LFTs recommended. MRI/MRCP could be considered if there is strong clinical concern for biliary obstruction. 3. Subacute and chronic thoracolumbar and pelvic fractures with no acute osseous abnormality appreciated. Please note that all CT scans at this facility use dose modulation, iterative reconstruction, and/or weight-based dosing when appropriate to reduce radiation dose to as low as reasonably achievable. Dictated by Agustin Pettit MD @ 02/12/2025 9:05:56 PM (Electronically Signed)
[2025-02-12 18:24] LABS: PCR FLU A Negative PCR FLU A (Negative); PCR FLU B Negative PCR FLU B (Negative); PCR RSV Negative PCR RSV (Negative); SARS PCR* Negative SARS-CoV-2 (Negative)
[2025-02-12 18:33] LABS: Creatinine, Point-of-Care* 1.7 mg/dl (0.6-1.3)
[2025-02-12 18:47] LABS: Basophils Absolute Auto 0.02 K/uL (0.00-0.30); Basophils Percent Auto 0.4 % (0.0-3.0); Eosinophils Absolute Auto 0.25 K/uL (0.00-0.50); Eosinophils Percent Auto 4.5 % (0.0-7.0); Hematocrit 38.5 % (33.0-51.0); Hemoglobin* 12.4 gm/dL (12.0-16.0); Immature Granulocytes Abs Auto 0.04 K/uL (0.00-0.30); Immature Granulocytes Pct Auto 0.7 %; Lymphocytes Absolute Auto 1.65 K/uL (0.90-2.90); Lymphocytes Percent Auto 29.5 % (20-44); Mean Corpuscular HGB Conc 32 gm/dL (32-36); Mean Corpuscular Hemoglobin 29 pg (26-34); Mean Corpuscular Volume 91 fL (80-100); Monocytes Percent Auto 10.4 % (0.0-11.0); Neutrophils Absolute Auto 3.05 K/uL (1.7-7.0); Neutrophils Percent Auto 54.5 % (42.0-72.0); Platelet Count* 172 K/uL (140-440); RDW Coefficient of Variation % 14.5 % (11.5-15.5); Red Blood Count 4.24 m/uL (4.00-5.20); White Blood Count* 5.59 K/uL (4.50-11.00)
[2025-02-12 18:52] LABS: Slide Review Reflex No
[2025-02-12 19:04] LABS: Albumin* 4.1 g/dL (3.3-5.0); Chloride* 107 mmol/L (96-114); Sodium* 140 mmol/L (135-149)
[2025-02-12 19:05] LABS: Potassium* 4.6 mmol/L (3.6-5.1)
[2025-02-12 19:07] LABS: Alanine Aminotransferase* 32 U/L (4-35); Alkaline Phosphatase* 170 U/L (40-150); Anion Gap 8 mEq/L (7-15); Aspartate Amino Transferase* 39 U/L (12-35); Bilirubin Total* 0.7 mg/dL (0.1-1.5); Blood Urea Nitrogen* 37 mg/dL (7-30); Calcium* 9.8 mg/dL (8.4-10.6); Carbon Dioxide* 25 mmol/L (20-32); Creatinine* 1.5 mg/dL (0.5-1.5); Est. Creatinine Clearance* 23.33; Estimated Glomerular Filt Rate 33 ml/min; Glucose* 90 mg/dL (60-115); Total Protein* 7.1 g/dL (6.0-8.3)
[2025-02-12 19:08] LABS: Magnesium* 1.9 mg/dL (1.5-2.6)
[2025-02-12 19:19] LABS: Troponin I* 0.03 ng/mL (0.01-0.04)
[2025-02-12 19:20] LABS: NT Pro B Type NatriureticPept* 2010 pg/mL
[2025-02-12] MEDS: diphenhydrAMINE 50 MG/ML inj IVP (19:21)
[2025-02-12] MEDS: HYDROCORTISONE SOD SUCCINATE 50 MG/ML inj 200 MG IVP (19:21)
[2025-02-12 20:06] LABS: Appearance Urine Cloudy (Clear); Bilirubin Urine Negative (Negative); Blood Urine Trace-intact (Negative); Color Urine Yellow (Yellow); Glucose Urine Negative (Negative); Ketones Urine 1+ (Negative); Leukocyte Esterase Urine 2+ (Negative); Nitrite Urine Positive (Negative); Protein Urine 1+ (Negative); Specific Gravity Urine 1.015 (1.000-1.030)
[2025-02-12 20:28] LABS: Bacteria Urine Many; RBC Urine 0-2 (0-2); Squamous Epithelial Cell Urine Moderate (None-Few)
[2025-02-12 21:42] LABS: Lipase* 33 U/L (23-300)
[2025-02-12] MEDS: cefTRIAXone 1 GM in 0.9 % SODIUM CHLORIDE Mini-bag 100 ML IVPB (21:45)
--- NOTE | 2025-02-12 22:17 | PM.IMHP1 ---
Assessment and Plan Assessment and plan (1) Acute alteration in mental status: Problem comment: Per ED, daughter reported this has been ongoing since discharge from the [facility] 6 days ago Reported slurred speech earlier today, now resolved. Some word-finding difficulty persists CT head shows no acute intracranial findings UA looks positive for UTI. CT shows bladder wall thickening. UC pending. Afebrile, no leukocytosis, triple swab negative Polypharmacy also a consideration, currently on buprenorphine and Lyrica for chronic pain, recent fractures - HOLD Reported poor sleep as well Consider MRI brain tomorrow if new or worsening symptoms or no resolve Status: Acute (2) Acute UTI: Problem comment: UA is cloudy, positive nitrites, 2+ LE, 10-25 WBC, many bacteria Previous UC from 01/01 growing Klebsiella pneumonia Continue ceftriaxone as initiated in ED, pending UC results Status: Acute (3) Lower extremity edema: Problem comment: Reported worse than usual Lasix 40 mg IV x1, monitor for response. 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 Note is also made of pancreatic parenchymal atrophy and ductal dilation. Correlation with LFTs recommended. MRI/MRCP could be considered if there is strong clinical concern for biliary obstruction Gallbladder ultrasound shows enlarged common bile duct measuring 1.2 cm Benign abdominal exam on admission. Denies abdominal pain, no recent nausea, vomiting Total bili 0.7, AST 39, ALT 32, alk-phos 170 (previously 213), lipase 33 Recheck LFTs in a.m., repeat abdominal exam, consider further imaging and general surgery consult if necessary Status: Acute (6) Type 2 diabetes mellitus: Problem comment: Continue Jardiance Home dose Lantus 14 units, start at 7 units and adjust as necessary. Home dose aspart 6 units t.i.d. with meals - hold for sliding scale Glucose checks ACHS and insulin sliding scale Status: Acute (7) Cognitive impairment: Problem comment: 12/24/24 MOCA Status: Acute (8) Atrial fibrillation: Problem comment: On chronic anticoagulation Continue metoprolol and Eliquis Status: Acute (9) Spinal stenosis: Problem comment: -CT scan of lumbar spine 12/22/2024: 1. Recent (acute/subacute) L4 compression fracture and bilateral sacral ala fractures. 2. Chronic-appearing compression deformities at T12, L1, and L3, with cement augmentation at T12 and L3. 3. Spondylosis and spondylolisthesis as detailed, with suspected moderate to severe spinal canal stenosis at L4-5. Status: Acute (10) Closed L4 vertebral fracture: Problem comment: -10/30/2024 -CT scan of lumbar spine 12/22/2024: 1. Recent (acute/subacute) L4 compression fracture and bilateral sacral ala fractures. 2. Chronic-appearing compression deformities at T12, L1, and L3, with cement augmentation at T12 and L3. 3. Spondylosis and spondylolisthesis as detailed, with suspected moderate to severe spinal canal stenosis at L4-5. Status: Acute (11) Bilateral sacral insufficiency fracture: Problem comment: -10/30/24 -CT scan of lumbar spine 12/22/2024: 1. Recent (acute/subacute) L4 compression fracture and bilateral sacral ala fractures. 2. Chronic-appearing compression deformities at T12, L1, and L3, with cement augmentation at T12 and L3. 3. Spondylosis and spondylolisthesis as detailed, with suspected moderate to severe spinal canal stenosis at L4-5. Status: Acute Total Time Spent Total Time Spent: Today I spent 75 minutes seeing the patient, reviewing Expanse and EPIC notes/diagnostics, discussing the care plan with our care time that includes social work, PT/OT, pharmacy, RT, group home and documenting my impressions and plan in the medical record. Hospitalist- H&P: HPI History of Present Illness Date Seen: 02/12/25 Chief complaint: swelling Narrative: Hayde Fong is a 89 year old female past medical history significant for hypertension, chronic renal insufficiency, T2D, CHF, atrial fibrillation on chronic anticoagulation, restless leg syndrome, anxiety, depression, chronic pain, closed L4 vertebral fracture, bilateral sacral insufficiency fracture, dizziness is admitted to the medical floor from the ED for acute altered mental status and UTI. Patient was discharged from this hospital on 12/26/2024 to be [place] in [place] where she was discharged 6 days ago. She was seen in the [place] clinic today and was transferred to our ED for concern of worsening confusion, slurring of speech, concern for stroke. According to that report, daughter was concerned that the patient had been dragging her left foot, had noticed some slurred speech, and difficulty with word recall. Currently, patient demonstrates no slurring of speech but on occasion struggles to find the right word. Oriented to self and time, not to place. Jokes that she has been so many places today she can't possibly know where she is tonight. As for difficulty ambulating, patient states she has not had any problems while at home and currently is ambulating with a walker without difficulty in her room. Denies headache. Has chronic dizziness for which she takes meclizine p.r.n.. Currently, no complaints of dizziness. Denies chest pain or shortness of breath. No recent fevers. Denies abdominal pain. No recent nausea or vomiting. Increased urination. Is not sleeping well. Reports her legs are more swollen than usual. Her legs feel restless tonight as well. PCP is Anisa Matthews. Lives alone. Has a daughter who helps her. Has a POLST, DNR/DNI. Daughter is not present this evening so unable to confirm history as provided by patient. Review of Systems Narrative: REVIEW OF SYSTEMS: Complete review of systems performed and negative unless otherwise stated in HPI or below. [facility] Medical History Restless leg syndrome ?G25.81 - Restless legs syndrome (ICD-10) CHF (congestive heart failure) ?I50.9 - Heart failure, unspecified (ICD-10) Atrial fibrillation ?I48.91 - Unspecified atrial fibrillation (ICD-10) Type 2 diabetes mellitus ?E11.9 - Type 2 diabetes mellitus without complications (ICD-10) Anxiety ?F41.9 - Anxiety disorder, unspecified (ICD-10) Closed L4 vertebral fracture ?S32.049A - Unspecified fracture of fourth lumbar vertebra, initial encounter for closed fracture (ICD-10) Bilateral sacral insufficiency fracture ?M84.48XA - Pathological fracture, other site, initial encounter for fracture (ICD-10) Cellulitis ?L03.90 - Cellulitis, unspecified (ICD-10) Hard of hearing ?H91.90 - Unspecified hearing loss, unspecified ear (ICD-10) Depression ?F32.A - Depression, unspecified (ICD-10) Constipation ?K59.00 - Constipation, unspecified (ICD-10) HTN (hypertension) ?I10 - Essential (primary) hypertension (ICD-10) Osteoarthritis ?M19.90 - Unspecified osteoarthritis, unspecified site (ICD-10) Neuropathy ?G62.9 - Polyneuropathy, unspecified (ICD-10) Nonischemic cardiomyopathy ?I42.8 - Other cardiomyopathies (ICD-10) Chronic renal insufficiency ?N18.9 - Chronic kidney disease, unspecified (ICD-10) Recent urinary tract infection ?Z87.440 - Personal history of urinary (tract) infections (ICD-10) Left shoulder pain ?M25.512 - Pain in left shoulder (ICD-10) Nonadherence to medication ?Z91.148 - Patient's other noncompliance with medication regimen for other reason (ICD-10) Skin yeast infection ?B37.2 - Candidiasis of skin and nail (ICD-10) Fatigue ?R53.83 - Other fatigue (ICD-10) Cardiac pacemaker ?Z95.0 - Presence of cardiac pacemaker (ICD-10) Hx of sick sinus syndrome ?Z86.79 - Personal history of other diseases of the circulatory system (ICD-10) Stage 3a chronic kidney disease ?N18.31 - Chronic kidney disease, stage 3a (ICD-10) Candidal intertrigo ?B37.2 - Candidiasis of skin and nail (ICD-10) Pressure injury of heel, stage 1 ?L89.601 - Pressure ulcer of unspecified heel, stage 1 (ICD-10) GERD (gastroesophageal reflux disease) ?K21.9 - Gastro-esophageal reflux disease without esophagitis (ICD-10) Sacral fracture ?S32.10XA - Unspecified fracture of sacrum, initial encounter for closed fracture (ICD-10) Dizziness ?R42 - Dizziness and giddiness (ICD-10) Pressure sore ?L89.90 - Pressure ulcer of unspecified site, unspecified stage (ICD-10) Health care directive on file ?Z78.9 - Other specified health status (ICD-10) Sick sinus syndrome ?I49.5 - Sick sinus syndrome (ICD-10) Surgical History History of amputation of toe ?Z89.429 - Acquired absence of other toe(s), unspecified side (ICD-10) History of appendectomy ?Z90.49 - Acquired absence of other specified parts of digestive tract (ICD-10) History of hysterectomy ?Z90.710 - Acquired absence of both cervix and uterus (ICD-10) Spinal cord stimulator status ?Z96.89 - Presence of other specified functional implants (ICD-10) History of carpal tunnel release ?Z98.890 - Other specified postprocedural states (ICD-10) History of permanent cardiac pacemaker placement ?Z95.0 - Presence of cardiac pacemaker (ICD-10) History of knee replacement ?Z96.659 - Presence of unspecified artificial knee joint (ICD-10) Family History Father Heart disease Mother Heart disease Breast cancer Son Colon cancer, Onset Age: 47 Social History Narrative: The patient is . 2 children. Limited exercise. Non-smoker. Alcohol rare. No illicit drug use. What is your current living situation?: I presently have a place to live Problems where you live: no known problems Problems where you live details: N/A In the past 12 months, utilities in danger of being shut off: no In past 12 months, lack of transportation kept you from medical appts, meetings, work, or getting things needed for daily living: no In the past 12 mos, have been you worried that your food would run out before you had money to buy more?: never true In the past 12 mos, the food you bought just didn't last and you didn't have money to buy more?: never true Highest level of school completed/degree received: some college, no degree Smoking Status: Never smoker Do you use any of these nicotine containing products: None Second hand tobacco smoke exposure: No How often do you have a drink containing alcohol: never How often do you have six or more drinks on one occasion: Never AUDIT-C Alcohol total score: 0 Non-prescribed substance use: denies use How often does anyone, including family, friends and others, physically hurt you: never How often does anyone, including family, friends and others, insult or talk down to you: never How often does anyone, including family, friends and others, threaten you with harm: never How often does anyone, including family, friends and others, scream or curse at you: never service: No Meds Home Medications and Allergies Home Medications ?Medication ?Instructions ?Recorded ?Confirmed ?Type lubiprostone 24 mcg capsule 24 mcg PO BID 10/26/23 02/12/25 History metoprolol tartrate 25 mg tablet 12.5 mg PO BID 10/26/23 02/12/25 History pen needle, diabetic 32 gauge x #100 ea 10/26/23 02/12/25 History 1/4 (BD Ultra-Fine Micro Pen Needle) sennosides 8.6 mg-docusate sodium 1 tab PO BID PRN 10/26/23 02/12/25 History 50 mg tablet (Senna Plus) diclofenac sodium 1 % topical gel 2 g topical QID PRN 11/23/24 02/12/25 History insulin aspart U-100 100 unit/mL 6 unit subcut TID 11/23/24 02/12/25 History subcutaneous solution (Novolog U-100 Insulin aspart) insulin glargine 100 unit/mL (3 14 unit subcut DAILY 11/23/24 02/12/25 History mL) subcutaneous pen (Lantus Solostar U-100 Insulin) empagliflozin 10 mg tablet 10 mg PO QAM 12/23/24 02/12/25 History (Jardiance) buprenorphine HCl 2 mg sublingual 2 mg sublingual DAILY 02/12/25 02/12/25 History tablet escitalopram oxalate 5 mg tablet 5 mg PO QDAY 02/12/25 02/12/25 History (Lexapro) meclizine 12.5 mg tablet 12.5 mg PO 3XD PRN dizziness 02/12/25 02/12/25 History Allergies Allergy/AdvReac Type Severity Reaction Status Date / Time Iodinated Contrast Media Allergy Intermediate Hives Verified 02/12/25 19:29 diatrizoate meglumine Allergy Hives Verified 02/12/25 14:35 phenobarbital Allergy Verified 02/12/25 14:35 propoxyphene (From Darvon) Allergy Verified 02/12/25 14:35 Exam Narrative: Exam Narrative: PHYSICAL EXAM General: Pleasant, conversant, NAD HEENT: Normocephalic, atraumatic, sclera white, EOMI, oral mucosa moist Cardiovascular: IRRR. +2 pitting edema Pulmonary: CTA bilaterally without rhonchi, rales, expiratory wheezes. No dyspnea on RA Abdominal: Soft, nondistended, NTTP, no guarding Neurological: Alert, oriented to self, date, time/events, not place. Cranial nerves intact, no facial droop or slurring of speech. Some word finding difficulty Extremities: No gross joint deformity. AROMI. Neurovascularly intact Skin: Warm, dry. Const: Vital Signs, click to edit/add: Vital Signs - 24 hr 02/12/25 17:03 02/12/25 17:16 02/12/25 17:17 Temperature 98.5 F Pulse Rate 73 67 Pulse Rate [Pulse Oximeter] 67 Respiratory Rate 18 12 12 Blood Pressure 137/52 L Blood Pressure [Ri ght Upper Arm] 158/76 H Pulse Oximetry 98 93 [facility] 02/12/25 17:30 02/12/25 17:32 02/12/25 18:00 Temperature Pulse Rate 61 63 Pulse Rate [Pulse Oximeter] Respiratory Rate 23 24 Blood Pressure 130/81 Blood Pressure [Ri ght Upper Arm] Pulse Oximetry 100 99 Oxygen Delivery Co thod 02/12/25 18:02 02/12/25 18:15 02/12/25 18:30 Temperature Pulse Rate 64 Pulse Rate [Pulse Oximeter] Respiratory Rate 18 15 Blood Pressure 141/121 H Blood Pressure [Ri ght Upper Arm] Pulse Oximetry 85 L Oxygen Delivery Co thod 02/12/25 18:32 02/12/25 18:33 02/12/25 19:00 Temperature Pulse Rate 67 61 67 Pulse Rate [Pulse Oximeter] Respiratory Rate 11 L Blood Pressure 149/50 H Blood Pressure [Ri ght Upper Arm] Pulse Oximetry 81 L 94 Oxygen Delivery Co thod 02/12/25 19:02 02/12/25 19:15 02/12/25 19:30 Temperature Pulse Rate 69 67 Pulse Rate [Pulse Oximeter] Respiratory Rate Blood Pressure 125/52 L Blood Pressure [Ri ght Upper Arm] Pulse Oximetry 97 [facility] 02/12/25 19:32 02/12/25 19:51 02/12/25 20:00 Temperature Pulse Rate 69 76 63 Pulse Rate [Pulse Oximeter] Respiratory Rate Blood Pressure 153/56 H 138/69 Blood Pressure [Ri ght Upper Arm] Pulse Oximetry 93 94 Oxygen Delivery Co thod 02/12/25 20:02 02/12/25 20:03 02/12/25 20:28 Temperature Pulse Rate 63 61 Pulse Rate [Pulse Oximeter] Respiratory Rate 18 11 L Blood Pressure 131/58 L Blood Pressure [Ri ght Upper Arm] Pulse Oximetry 94 94 [facility] 02/12/25 20:42 02/12/25 20:45 02/12/25 21:00 Temperature Pulse Rate 68 67 Pulse Rate [Pulse Oximeter] Respiratory Rate 14 Blood Pressure Blood Pressure [Ri ght Upper Arm] Pulse Oximetry Oxygen Delivery Co thod 02/12/25 21:02 02/12/25 21:15 02/12/25 21:30 Temperature Pulse Rate 63 61 65 Pulse Rate [Pulse Oximeter] Respiratory Rate 14 13 Blood Pressure 173/77 H Blood Pressure [Ri ght Upper Arm] Pulse Oximetry 90 90 89 [facility] 02/12/25 21:32 02/12/25 21:45 Temperature Pulse Rate 61 60 Pulse Rate [Pulse Oximeter] Respiratory Rate 14 15 Blood Pressure 154/74 H Blood Pressure [Ri ght Upper Arm] Pulse Oximetry 90 90 [facility] - H&P: Result Labs Labs: Short CBC 02/12/25 Range/Units 18:25 WBC 5.59 (4.50-11.00) K/uL Hgb 12.4 (12.0-16.0) gm/dL Hct 38.5 (33.0-51.0) % Plt Count 172 (140-440) K/uL BMP 02/12/25 18:25 Sodium 140 Potassium 4.6 Chloride 107 Carbon Dioxide 25 BUN 37 H Creatinine 1.5 Glucose 90 Calcium 9.8 Cardiac Enzymes 02/12/25 Range/Units 18:25 Troponin I 0.03 (0.01-0.04) ng/mL Liver Function 02/12/25 Range/Units 18:25 Total Bilirubin 0.7 (0.1-1.5) mg/dL AST 39 H (12-35) U/L ALT 32 (4-35) U/L Alkaline Phosphatase 170 H (40-150) U/L Albumin 4.1 (3.3-5.0) g/dL Urine 04/07/25 Range/Units 19:50 Urine Color Yellow (Yellow) Urine Appearance Cloudy A (Clear) Urine pH 7.0 (5.0-8.5) Ur Specific [place] 1.015 (1.000-1.030) Urine Protein 1+ A (Negative) Urine Glucose (UA) Negative (Negative) Imaging CT scan - head: Attestation: I have reviewed the pertinent imaging results. Radiologist's impression: Brain: No intracranial hemorrhage, abnormal extra-axial fluid collection, or evidence of acute infarct. No mass effect or midline shift. Moderate generalized cerebral and cerebellar volume loss with associated ex vacuo dilation of the lateral ventricles. Moderate chronic small vessel ischemic disease. 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 Physiologic basal ganglia calcifications. Skull base and calvarium: Mild mucosal thickening in the bilateral maxillary sinuses. The visualized paranasal sinuses and mastoid air cells are otherwise clear. The visualized orbits are grossly unremarkable. No acute fracture identified. Soft tissues: Unremarkable. IMPRESSION: 1. No acute intracranial findings. 2. Generalized parenchymal volume loss and moderate chronic small vessel ischemic disease. CT abdomen pelvis: Attestation: I have reviewed the pertinent imaging results. Radiologist's impression: Lower chest: No acute abnormality appreciated. Hepatobiliary: No significant parenchymal abnormality is appreciated. Status post cholecystectomy. Intrahepatic and extrahepatic biliary dilation with the common bile duct measuring up to 17 millimeters. Spleen: Unremarkable. Pancreas: Pancreatic parenchymal atrophy and dilation of the pancreatic duct. Adrenal glands: No acute abnormality appreciated. Kidneys: No significant parenchymal abnormality appreciated. No visualized calculi. No hydronephrosis. Bowel: No obstruction. No focal perienteric or pericolonic stranding is appreciated. Vascular: Calcified atherosclerosis. Lymph nodes: No gross lymphadenopathy. Peritoneum: No free air. No free fluid. : Wall thickening of the bladder with adjacent stranding. Soft tissues: No acute abnormality appreciated. Bones: No acute fracture. No lytic or blastic lesion. Chronic thoracolumbar compression fractures. Spinal stimulator leads. Degenerative changes of the spine and pelvis. Evolving pelvic fractures. Impression: 1. Significant wall thickening of the bladder with adjacent stranding concerning for UTI/cystitis. 2. Intrahepatic and extrahepatic biliary dilation. Note is also made of pancreatic parenchymal atrophy and ductal dilation. Correlation with LFTs recommended. MRI/MRCP could be considered if there is strong clinical concern for biliary obstruction. 3. Subacute and chronic thoracolumbar and pelvic fractures with no acute osseous abnormality appreciated. Gallbladder ultrasound: Attestation: I have reviewed the pertinent imaging results. Radiologist's impression: Gallbladder is not definitively visualized. Possible gallbladder filled with echogenic debris versus gas-filled bowel. CT may be considered for further evaluation. 2. Enlarged common bile duct measuring 1.2 centimeter in diameter. Consider correlation with bilirubin levels to assess for obstruction with further evaluation by MRCP as clinically indicated.
[2025-02-12] MEDS: FUROSEMIDE 10 MG/ML inj 40 MG IVP (23:25)
[2025-02-12] MEDS: LIDOCAINE 5% PATCH 1 PATCH TRANSDERMA (23:26)
[2025-02-13] VITALS (11 sets, daily range): BP systolic 124–197; BP diastolic 62–88; PULSE 61–75; RESP 16–20; TEMP 36.5–36.6; O2SAT 92–98
--- NOTE | 2025-02-13 06:13 | PC.NURSE ---
End of shift [id number]: Alert to self, place and time. she was intermittently confused overnight but quickly reorientated. VSS. able to turn and repo self in bed. external catheter placed overnight. bed alarm in place.
[2025-02-13 08:15] LABS: Hemoglobin* 12.2 gm/dL (12.0-16.0); Mean Corpuscular HGB Conc 32 gm/dL (32-36); Mean Corpuscular Hemoglobin 29 pg (26-34); Mean Corpuscular Volume 91 fL (80-100); Platelet Count* 157 K/uL (140-440); Red Blood Count 4.19 m/uL (4.00-5.20); White Blood Count* 5.72 K/uL (4.50-11.00)
[2025-02-13 08:16] LABS: Slide Review Reflex No
[2025-02-13 08:23] LABS: Albumin* 3.7 g/dL (3.3-5.0); Chloride* 106 mmol/L (96-114); Potassium* 4.8 mmol/L (3.6-5.1); Sodium* 140 mmol/L (135-149)
[2025-02-13 08:26] LABS: Anion Gap 10 mEq/L (7-15); Blood Urea Nitrogen* 39 mg/dL (7-30); Carbon Dioxide* 24 mmol/L (20-32); Creatinine* 1.4 mg/dL (0.5-1.5); Est. Creatinine Clearance* 24.99; Estimated Glomerular Filt Rate 36 ml/min
[2025-02-13 08:27] LABS: Alanine Aminotransferase* 35 U/L (4-35); Alkaline Phosphatase* 155 U/L (40-150); Aspartate Amino Transferase* 40 U/L (12-35); Bilirubin Direct* 0.5 mg/dL (0.0-0.5); Bilirubin Total* 0.6 mg/dL (0.1-1.5); Calcium* 9.3 mg/dL (8.4-10.6); Glucose* 221 mg/dL (60-115); Total Protein* 6.6 g/dL (6.0-8.3)
[2025-02-13 08:30] LABS: C Reactive Protein* 1.4 mg/dL (0.5-1.0)
[2025-02-13] MEDS: INSULIN ASPART 100 UNIT/ML SUBCUT ×3 (08:49→17:58)
[2025-02-13] MEDS: OMEPRAZOLE 20 MG CAPSULE DR 40 MG PO ×2 (08:50→21:00)
[2025-02-13] MEDS: INSULIN GLARGINE,HUM.REC.ANLOG 100 UNIT/ML INSULN.PEN 7 UNIT SUBCUT (08:50)
[2025-02-13] MEDS: APIXABAN 5 MG TABLET 2.5 MG PO ×2 (08:50→21:00)
[2025-02-13] MEDS: ESCITALOPRAM 10 MG TABLET 5 MG PO (08:51)
[2025-02-13] MEDS: EMPAGLIFLOZIN 10 MG TABLET PO (08:52)
[2025-02-13] MEDS: METOPROLOL TARTRATE 25 MG TABLET 12.5 MG PO ×2 (08:52→21:01)
[2025-02-13] MEDS: SODIUM CHLORIDE 0.9 % (FLUSH) 10 ML SYRINGE 5 ML IVF ×2 (08:54→20:59)
--- NOTE | 2025-02-13 10:20 | PC.SOCIAL ---
Discharge Planning: SW spoke with patient's daughter Marifer about how things are going at home and what services they have in place. Marifer states that she feels her mom came home worse from the [facility] because she was dragging her foot and said that the patient told her she feels she had a stroke while at [facility] but didn't tell anyone. Marifer states that her mom says PT was supposed to come to the home but they have not come yet and Marifer doesn't know anything about this. Marifer reports that patient has an Elderly Waiver and hospital social worker that they work with who came to the house last Wednesday. Marifer reports that patient has a private paid [employer]ACHINIST [employer]OB [employer] at least once a week, a live in housekeeper nanny comes once a week, she has a medical alert button, and there are cameras in her apartment so that Marifer and her brother can see her all the time. SW inquired about how much they've looked into IVET. Marifer states that they've looked but it's too expensive. SW encouraged Marifer to connect with the Elderly Waiver SW to discuss this as the Elderly Waiver should assist with this. Marifer reports she would have to get her on Medical Assitance. SW suggested again to talk with the waiver hospital social worker to determine next steps. Marifer states that now patient lives very close to her and her brother. Marifer reports that she won't be coming to the hospital due to her own health concerns with being around people who are ill. SW to continue to support and assist with patient needs.
--- NOTE | 2025-02-13 14:30 | P.IMPN_ITS ---
Assessment and Plan Assessment and plan (1) Acute alteration in mental status: Problem comment: - on admission, daughter notes approximately 6 days of symptoms (coincides with d/c from [place]), including speech and word finding difficulties - ddx: UTI, GI illness, intracranial process, metabolic encephalopathy, iatrogenic - reassuring head CT and electrolytes - on Ceftriaxone, urine culture pending - HOLDING Buprenorphine and Tizanidine, restarting Lyrica on 02/13 - therapies following - noting some clearing of mentation on 02/13 Status: Acute (2) Acute UTI: Problem comment: - UA: cloudy, positive nitrites, 2+ LE, 10-25 WBC, many bacteria - previous UC from 01/01 grew Klebsiella pneumonia - continue Ceftriaxone (02/12), await culture results Status: Acute (3) Lower extremity edema: Problem comment: - received Lasix 40 mg IV x1 on 02/12 - 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 Note is also made of pancreatic parenchymal atrophy and ductal dilation - U/S: CBD 1.2cm, possible gallbladder debris vs bowel - reassuring LFTs, asymptomatic - can't have MRI 12/10 pacemaker - reviewed with General Surgery 02/13: given reassuring labs and clinical status, outpatient EUS ordered Status: Acute (6) Type 2 diabetes mellitus: Problem comment: - Continue Jardiance, home dose Lantus 14 units and Aspart 6U TID with meals - Glucose checks ACHS and insulin sliding scale, last A1C 8.0 11/2024 Status: Acute (7) Cognitive impairment: Problem comment: - 12/24/24 MOCA Status: Acute (8) Atrial fibrillation: Problem comment: - on Metoprolol and Eliquis as outpatient, will continue Status: Acute (9) Spinal stenosis: Problem comment: - with resultant chronic pain; CT scan of lumbar spine 12/22/2024: 1. Recent (acute/subacute) L4 compression fracture and bilateral sacral ala fractures. 2. Chronic-appearing compression deformities at T12, L1, and L3, with cement augmentation at T12 and L3. 3. Spondylosis and spondylolisthesis as detailed, with suspected moderate to severe spinal canal stenosis at L4-5. Status: Acute Plan - per above - requires inpatient stay given encephalopathy, UTI (awaiting culture results), medication management, monitoring of GI symptoms, therapy evaluations Subjective Date Seen: 02/13/25 Interval history: Francine was admitted to the hospital last night for confusion; comorbidities include IDDM2, HFpEF, atrial fibrillation, CKD, chronic pain. In the ER: - noted to have +UA, culture pending and Ceftriaxone initiated - + dilated CBD on imaging (ultrasound and CT) Was discharged home from [facility] in [place] on 02/06/25 after a rehab stay. During that time, medication compliance was unclear and she tells me she thinks she's had 1-2 falls. Upon discharge, was supposed to have home PT but that had yet to be scheduled. This morning, feels better, less confused. Working with therapies. Tolerating po intake. Exam Narrative: Exam Narrative: GEN: Alert and oriented, nontoxic HEENT: EOMIs bilaterally, no scleral icterus, missing many teeth without evidence of acute infection CV: RRR, No concerning murmurs R: LCTA bilaterally without concerning wheezing Ab: Mild discomfort with deep palpation in RUQ, no rebound or guarding Ext: + BLE, symmetric Skin: No concerning skin lesions or rashes on exposed skin Neuro: No focal deficits or resting tremor, moving all extremities spontaneously Psych: MCI, loquacious, no agitation Const: Vital Signs, click to edit/add: Vital Signs - 24 hr 02/12/25 17:03 02/12/25 17:16 02/12/25 17:17 Temperature 98.5 F Pulse Rate 73 67 Pulse Rate [Pulse Oximeter] 67 Respiratory Rate 18 12 12 Blood Pressure 137/52 L Blood Pressure [Ri ght Arm] Blood Pressure [Ri ght Upper Arm] 158/76 H Pulse Oximetry 98 93 98 Oxygen Delivery Me thod Room Air 02/12/25 17:30 02/12/25 17:32 02/12/25 18:00 Temperature Pulse Rate 61 63 Pulse Rate [Pulse Oximeter] Respiratory Rate 23 24 Blood Pressure 130/81 Blood Pressure [Ri ght Arm] Blood Pressure [Ri ght Upper Arm] Pulse Oximetry 100 99 Oxygen Delivery Me thod 02/12/25 18:02 02/12/25 18:15 02/12/25 18:30 Temperature Pulse Rate 64 Pulse Rate [Pulse Oximeter] Respiratory Rate 18 15 Blood Pressure 141/121 H Blood Pressure [Ri ght Arm] Blood Pressure [Ri ght Upper Arm] Pulse Oximetry 85 L Oxygen Delivery Me thod 02/12/25 18:32 02/12/25 18:33 02/12/25 19:00 Temperature Pulse Rate 67 61 67 Pulse Rate [Pulse Oximeter] Respiratory Rate 11 L Blood Pressure 149/50 H Blood Pressure [Ri ght Arm] Blood Pressure [Ri ght Upper Arm] Pulse Oximetry 81 L 94 Oxygen Delivery Al thod 02/12/25 19:02 02/12/25 19:15 02/12/25 19:30 Temperature Pulse Rate 69 67 Pulse Rate [Pulse Oximeter] Respiratory Rate Blood Pressure 125/52 L Blood Pressure [Ri ght Arm] Blood Pressure [Ri ght Upper Arm] Pulse Oximetry 97 [facility] 02/12/25 19:32 02/12/25 19:51 02/12/25 20:00 Temperature Pulse Rate 69 76 63 Pulse Rate [Pulse Oximeter] Respiratory Rate Blood Pressure 153/56 H 138/69 Blood Pressure [Ri ght Arm] Blood Pressure [Ri ght Upper Arm] Pulse Oximetry 93 94 Oxygen Delivery Me thod 02/12/25 20:02 02/12/25 20:03 02/12/25 20:28 Temperature Pulse Rate 63 61 Pulse Rate [Pulse Oximeter] Respiratory Rate 18 11 L Blood Pressure 131/58 L Blood Pressure [Ri ght Arm] Blood Pressure [Ri ght Upper Arm] Pulse Oximetry 94 94 Oxygen Delivery Me od Room Air 02/12/25 20:42 02/12/25 20:45 02/12/25 21:00 Temperature Pulse Rate 68 67 Pulse Rate [Pulse Oximeter] Respiratory Rate 14 Blood Pressure Blood Pressure [Ri ght Arm] Blood Pressure [Ri ght Upper Arm] Pulse Oximetry Oxygen Delivery Al thod 02/12/25 21:02 02/12/25 21:15 02/12/25 21:30 Temperature Pulse Rate 63 61 65 Pulse Rate [Pulse Oximeter] Respiratory Rate 14 13 Blood Pressure 173/77 H Blood Pressure [Ri ght Arm] Blood Pressure [Ri ght Upper Arm] Pulse Oximetry 90 90 89 Oxygen Delivery Me thod 02/12/25 21:32 02/12/25 21:45 02/12/25 22:02 Temperature Pulse Rate 61 60 Pulse Rate [Pulse Oximeter] Respiratory Rate 14 15 17 Blood Pressure 154/74 H 141/76 H Blood Pressure [Ri ght Arm] Blood Pressure [Ri ght Upper Arm] Pulse Oximetry 90 90 Oxygen Delivery Me thod 02/12/25 23:18 02/12/25 23:18 02/12/25 23:23 Temperature 98.5 F 97.9 F Pulse Rate Pulse Rate [Pulse Oximeter] 62 60 Respiratory Rate 16 16 16 Blood Pressure Blood Pressure [Ri ght Arm] 163/83 H 131/68 Blood Pressure [Ri ght Upper Arm] Pulse Oximetry 94 92 92 Oxygen Delivery Al thod Room Air Room Air Room Air 02/13/25 00:08 02/13/25 03:30 02/13/25 08:29 Temperature 97.7 F 97.7 F Pulse Rate 69 Pulse Rate [Pulse Oximeter] 61 75 Respiratory Rate 18 16 Blood Pressure Blood Pressure [Ri ght Arm] 168/72 H 190/81 H Blood Pressure [Ri ght Upper Arm] Pulse Oximetry 96 98 Oxygen Delivery Al thod Room Air Room Air 02/13/25 08:29 02/13/25 08:30 02/13/25 11:53 Temperature 98 F Pulse Rate Pulse Rate [Pulse Oximeter] 75 65 64 Respiratory Rate 16 20 Blood Pressure Blood Pressure [Ri ght Arm] 197/88 H 141/63 H Blood Pressure [Ri ght Upper Arm] Pulse Oximetry 96 Oxygen Delivery Me thod Room Air 02/13/25 13:32 Temperature Pulse Rate 61 Pulse Rate [Pulse Oximeter] Respiratory Rate Blood Pressure Blood Pressure [Ri ght Arm] Blood Pressure [Ri ght Upper Arm] Pulse Oximetry Oxygen Delivery Me thod Labs Labs: Laboratory Results - last 24 hr 02/12/25 02/12/25 02/12/25 17:40 18:23 18:25 WBC 5.59 RBC 4.24 Hgb 12.4 Hct 38.5 MCV 91 MCH 29 MCHC 32 RDW Coeff of Maile 14.5 Plt Count 172 Neut % (Auto) 54.5 Lymph % (Auto) 29.5 [place] % (Auto) 10.4 Eos % (Auto) 4.5 Baso % (Auto) 0.4 Neut # (Auto) 3.05 Lymph # (Auto) 1.65 [place] # (Auto) 0.60 Eos # (Auto) 0.25 Baso # (Auto) 0.02 Abs Immat Gran (auto) 0.04 Imm/Tot Granulo (auto) 0.7 Sodium 140 Potassium 4.6 Chloride 107 Carbon Dioxide 25 Anion Gap 8 BUN 37 H Creatinine 1.5 Estimated Creat Clear 23.33 Estimated GFR 33 Glucose 90 Calcium 9.8 Magnesium 1.9 Total Bilirubin 0.7 Direct Bilirubin AST 39 H ALT 32 Alkaline Phosphatase 170 H Troponin I 0.03 C-Reactive Protein NT-Pro-B Natriuret Pep 2010 Total Protein 7.1 Albumin 4.1 Lipase 33 Urine Color Urine Appearance Urine pH Ur Specific [place] Urine Protein Urine Glucose (UA) Urine Ketones Urine Blood Urine Nitrite Urine Bilirubin Urine Urobilinogen Ur Leukocyte Esterase Urine RBC Urine WBC Ur Squamous Epith Cells Urine Bacteria SARS-CoV-2 (PCR) Negative SARS-CoV-2 Influenza Type A (PCR) Negative PCR FLU A Influenza Type B (PCR) Negative PCR FLU B RSV (PCR) Negative PCR RSV Lab Acknowledgement POC Creatinine 1.7 H 02/12/25 02/12/25 02/13/25 19:50 21:06 08:03 WBC 5.72 RBC 4.19 Hgb 12.2 Hct 38.0 MCV 91 MCH 29 MCHC 32 RDW Coeff of Maile Plt Count 157 Neut % (Auto) Lymph % (Auto) [place] % (Auto) Eos % (Auto) Baso % (Auto) Neut # (Auto) Lymph # (Auto) [place] # (Auto) Eos # (Auto) Baso # (Auto) Abs Immat Gran (auto) Imm/Tot Granulo (auto) Sodium 140 Potassium 4.8 Chloride 106 Carbon Dioxide 24 Anion Gap 10 BUN 39 H Creatinine 1.4 Estimated Creat Clear 24.99 Estimated GFR 36 Glucose 221 H Calcium 9.3 Magnesium Total Bilirubin 0.6 Direct Bilirubin 0.5 AST 40 H ALT 35 Alkaline Phosphatase 155 H Troponin I C-Reactive Protein 1.4 H NT-Pro-B Natriuret Pep Total Protein 6.6 Albumin 3.7 Lipase Urine Color Yellow Urine Appearance Cloudy A Urine pH 7.0 Ur Specific Clarence 1.015 Urine Protein 1+ A Urine Glucose (UA) Negative Urine Ketones 1+ A Urine Blood Trace-intact A Urine Nitrite Positive A Urine Bilirubin Negative Urine Urobilinogen 1.0 Ur Leukocyte Esterase 2+ A Urine RBC 0-2 Urine WBC 10-25 A Ur Squamous Epith Cells Moderate A Urine Bacteria Many A SARS-CoV-2 (PCR) Influenza Type A (PCR) Influenza Type B (PCR) RSV (PCR) Lab Acknowledgement Test Added POC Creatinine
[2025-02-13] MEDS: cefTRIAXone 1 GM in 0.9 % SODIUM CHLORIDE Mini-bag 100 ML IVPB (17:55)
[2025-02-13] MEDS: 0.9 % SODIUM CHLORIDE 250 ml IV (17:55)
[2025-02-13] MEDS: INSULIN ASPART 100 UNIT/ML 6 UNIT SUBCUT (17:59)
--- NOTE | 2025-02-13 19:32 | PC.NURSE ---
End of Shift: Patient pleasant and cooperative. Patient vitally stable, lungs clear, BS WNL, IV's SL and intact. Patient up in chair for feel and has napped in bed. Patient rated pain at most 8/10, but reported tolerable, no pain meds given. Lower extremities with +1 pitting edema. Patient tolerating regular diet and has urinated in toilet but is also slightly incontinent. Patient did have 100ml emesis during dinner and did not completely finish her dinner, but is doing well. Tele=paced with BBB.
[2025-02-13] MEDS: MECLIZINE HCL 25 MG TABLET 12.5 MG PO (19:56)
[2025-02-13] MEDS: PREGABALIN 50 MG CAPSULE PO (21:00)
[2025-02-13] MEDS: ONDANSETRON ODT 4 MG TAB PO (21:01)
[2025-02-13] MEDS: LIDOCAINE 5% PATCH 1 PATCH TRANSDERMA (23:33)
[2025-02-14] VITALS (8 sets, daily range): BP systolic 113–137; BP diastolic 50–86; PULSE 60–67; RESP 14–20; TEMP 36.3–36.9; O2SAT 90–97
--- NOTE | 2025-02-14 06:12 | PC.NURSE ---
End of shift report: VS WNL. Afebrile. Pt had an emesis post meal this shift. Pt reported nausea, vomiting, and dizziness. PRN Zofran given with relief. Pt had a BM this shift.?Incontinent of urine. Lidocaine patch intact on R lower back. Ambulates 1 assist, GB, W. Bed alarm on, call light within reach. Bilat TEDs and SCDs on. IV is SL in R forearm and AC.?
--- NOTE | 2025-02-14 06:39 | PC.NURSE ---
Pt refusing AM labs when approached. Note left for day hospitalist providing update.
[2025-02-14] MEDS: INSULIN GLARGINE,HUM.REC.ANLOG 100 UNIT/ML INSULN.PEN 7 UNIT SUBCUT (09:31)
[2025-02-14] MEDS: INSULIN ASPART 100 UNIT/ML SUBCUT ×2 (09:31→14:02)
[2025-02-14] MEDS: OMEPRAZOLE 20 MG CAPSULE DR 40 MG PO ×2 (09:34→20:23)
[2025-02-14] MEDS: ESCITALOPRAM 10 MG TABLET 5 MG PO (09:34)
[2025-02-14] MEDS: EMPAGLIFLOZIN 10 MG TABLET PO (09:35)
[2025-02-14] MEDS: APIXABAN 5 MG TABLET 2.5 MG PO ×2 (09:35→20:22)
[2025-02-14] MEDS: METOPROLOL TARTRATE 25 MG TABLET 12.5 MG PO ×2 (09:36→20:24)
[2025-02-14] MEDS: FUROSEMIDE 20 MG TABLET PO (09:36)
[2025-02-14] MEDS: INSULIN ASPART 100 UNIT/ML 6 UNIT SUBCUT ×2 (09:37→14:03)
[2025-02-14] MEDS: SODIUM CHLORIDE 0.9 % (FLUSH) 10 ML SYRINGE 5 ML IVF ×2 (09:40→20:26)
[2025-02-14] MEDS: PREGABALIN 50 MG CAPSULE PO ×2 (09:42→20:24)
--- NOTE | 2025-02-14 10:45 | PC.SOCIAL ---
Addendum entered and electronically signed by Anisa Villatoro LCSW 02/14/25 16:09: SW attempted calling patient's daughter again and left a voicemail. SW received a call from daughter at 1400 stating she is ill and would not be able to take her mom today prior to 1500, but reports she can tomorrow at 1300. Daughter states she will need time to gather items for patient to bring with. Daughter asked if patient is agreeable to going. SW informed she is. SHADI emailed Sushant to determine if [facility] can take patient tomorrow due to no transportation today and the time crunch. Sushant states he will check with [facility]. SW had not heard back at 1600. SW completed PAS - [id number]. Addendum entered and electronically signed by Anisa Villatoro LCSW 02/14/25 12:47: SW received email from Sushant at [facility] that they are able to take patient today, but she would need to arrive prior to 3:00 PM. SHADI called patient's daughter, however, the call went straight to voicemail. SW left a voicemail requesting a call back. SHADI called home phone listed, however, there was no answer. SW left generic voicemail. SHADI again tried to call patient's daughter and it went straight to voicemail. SHADI left another voicemail requesting a call back. SHADI updated Sushant that SW is attempting to set up transportation. Original Note: Discharge Planning: SHADI notified by Dr. Ray that patient is medically ready for discharge and is agreeable to return to [facility] for more short term rehab. SAHDI secure emailed referral to Sushant Maya to review.
--- NOTE | 2025-02-14 13:20 | P.IMPN_ITS ---
Assessment and Plan Assessment and plan (1) Acute alteration in mental status: Problem comment: - on admission, daughter notes approximately 6 days of symptoms (coincides with d/c from [place]), including speech and word finding difficulties - ddx: UTI, GI illness, intracranial process, metabolic encephalopathy, iatrogenic - reassuring head CT and electrolytes - on Ceftriaxone, urine culture pending - HOLDING Buprenorphine and Tizanidine, restarting Lyrica on 02/13 - therapies following - noting some clearing of mentation on 02/13, MOCA Status: Acute (2) Acute UTI: Problem comment: - UA: cloudy, positive nitrites, 2+ LE, 10-25 WBC, many bacteria - previous UC from 01/01 grew Klebsiella pneumonia - transitioned from IV Ceftriaxone to oral Keflex on 02/14 Status: Acute (3) Lower extremity edema: Problem comment: - received Lasix 40 mg IV x1 on 02/12 - 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 Note is also made of pancreatic parenchymal atrophy and ductal dilation - U/S: CBD 1.2cm, possible gallbladder debris vs bowel - reassuring LFTs, asymptomatic - can't have MRI 2/2 pacemaker - reviewed with General Surgery 02/13: given reassuring labs and clinical status, outpatient EUS recommended for evaluation Status: Acute (6) Type 2 diabetes mellitus: Problem comment: - Continue Jardiance, home dose Lantus 14 units and Aspart 6U TID with meals - Glucose checks ACHS and insulin sliding scale, last A1C 8.0 11/2024 Status: Acute (7) Cognitive impairment: Problem comment: - 12/24/24 MOCA - 02/14/25: MOCA Status: Acute (8) Atrial fibrillation: Problem comment: - on Metoprolol and Eliquis as outpatient, will continue Status: Acute (9) Spinal stenosis: Problem comment: - with resultant chronic pain; CT scan of lumbar spine 12/22/2024: 1. Recent (acute/subacute) L4 compression fracture and bilateral sacral ala fractures. 2. Chronic-appearing compression deformities at T12, L1, and L3, with cement augmentation at T12 and L3. 3. Spondylosis and spondylolisthesis as detailed, with suspected moderate to severe spinal canal stenosis at L4-5. Status: Acute Plan - per above, await placement Subjective Date Seen: 02/14/25 Interval history: Francine was admitted to the hospital on 02/12/25 for confusion; comorbidities include IDDM2, HFpEF, atrial fibrillation, CKD, chronic pain. In the ER: - noted to have +UA, Ceftriaxone initiated - + dilated CBD on imaging (ultrasound and CT). Unable to have MRCP 2/2 pacemaker. History of a mechanical fall in 10/2024, found to have an acute sacral fracture and was hospitalized at [facility] in [place] for 3 weeks, then discharged to [facility] for 3 weeks. Discharged from SNF to a new apartment in December, which didn't go well (worsening acute on chronic pain); hospitalized here from 12/22/24-12/27/24 and discharged back to her apartment on 02/06/25. At her apartment, daughter is helping with medications, but Pat endorses not always taking these correctly; also notes a few mechanical falls. Home PT was ordered upon [facility] d/c but had not yet started prior to re-admission here. Since admission, urine culture + for E Coli, transitioned from IV Ceftriaxone to oral Cephalexin per sensitivities on 02/14/25. Working with therapies, repeat SNF stay recommended. This morning, Francine has no concerns for hospitalist team. Exam Narrative: Exam Narrative: GEN: Alert and oriented, nontoxic HEENT: EOMIs bilaterally, no scleral icterus, missing many teeth without evidence of acute infection CV: RRR, No concerning murmurs R: LCTA bilaterally without concerning wheezing Ab: Mild discomfort with deep palpation in RUQ, no rebound or guarding Ext: + BLE, symmetric, wearing Ru Hose Skin: No concerning skin lesions or rashes on exposed skin Neuro: No focal deficits or resting tremor, moving all extremities spontaneously Psych: Appears to have MCI, talkative without agitation Const: Vital Signs, click to edit/add: Vital Signs - 24 hr 02/13/25 13:32 02/13/25 15:18 02/13/25 15:18 Temperature 98 F Pulse Rate 61 Pulse Rate [Pulse Oximeter] 64 64 Respiratory Rate 18 18 Blood Pressure [Ri ght Arm] 126/62 Pulse Oximetry 92 Oxygen Delivery Me thod Room Air 02/13/25 19:51 02/13/25 21:06 02/13/25 21:12 Temperature 98 F Pulse Rate 61 Pulse Rate [Pulse Oximeter] 71 71 Respiratory Rate 20 20 Blood Pressure [Ri ght Arm] 139/64 Pulse Oximetry 94 Oxygen Delivery Me thod Room Air 02/13/25 23:34 02/14/25 02:54 02/14/25 04:58 Temperature 97.8 F 97.3 F L Pulse Rate 60 Pulse Rate [Pulse Oximeter] 61 63 Respiratory Rate 20 20 Blood Pressure [Ri ght Arm] 124/69 113/50 L Pulse Oximetry 93 90 Oxygen Delivery Me thod Room Air Room Air 02/14/25 07:00 02/14/25 07:00 02/14/25 11:00 Temperature 97.9 F 98.5 F Pulse Rate Pulse Rate [Pulse Oximeter] 67 67 60 Respiratory Rate 20 18 16 Blood Pressure [Ri ght Arm] 137/86 120/67 Pulse Oximetry 97 95 Oxygen Delivery Me thod Room Air Room Air
[2025-02-14] MEDS: cephALEXin 500 MG CAPSULE PO ×2 (14:03→20:25)
--- NOTE | 2025-02-14 19:01 | PC.NURSE ---
End of Shift:Patient pleasant and cooperative. VSS, lungs clear, BS WNL, IV's SL and intact. Patient up to chair for meals and throughout shift. Patient denies N/V/SOB or pain. Lower extremities with +1 pitting edema. Patient tolerating reg. diet.
[2025-02-14] MEDS: LIDOCAINE 5% PATCH 1 PATCH TRANSDERMA (20:27)
--- NOTE | 2025-02-14 22:48 | PC.NURSE ---
Patient vitally stable. Very tired during the shift. Able to take medications and lidocane patch applied early per patients request. Restful night sleep ordered.
[2025-02-15 04:33] VITALS: RESP 16
--- NOTE | 2025-02-15 06:55 | PC.NURSE ---
End of shift report: Pt is on restful VS. Denies pain. Lidocaine patch on R lower back. Ambulates 1 assist, GB, W. Tolerating regular diet. Bed alarm on, call light within reach.?
[2025-02-15 07:00] VITALS: PULSE 64; RESP 18
[2025-02-15 07:02] LABS: Basophils Absolute Auto 0.01 K/uL (0.00-0.30); Basophils Percent Auto 0.2 % (0.0-3.0); Eosinophils Absolute Auto 0.42 K/uL (0.00-0.50); Eosinophils Percent Auto 6.3 % (0.0-7.0); Hematocrit 35.2 % (33.0-51.0); Hemoglobin* 11.1 gm/dL (12.0-16.0); Immature Granulocytes Abs Auto 0.01 K/uL (0.00-0.30); Immature Granulocytes Pct Auto 0.2 %; Lymphocytes Percent Auto 18.9 % (20-44); Mean Corpuscular HGB Conc 32 gm/dL (32-36); Mean Corpuscular Hemoglobin 29 pg (26-34); Mean Corpuscular Volume 91 fL (80-100); Monocytes Percent Auto 10.5 % (0.0-11.0); Neutrophils Absolute Auto 4.25 K/uL (1.7-7.0); Neutrophils Percent Auto 63.9 % (42.0-72.0); Platelet Count* 128 K/uL (140-440); Red Blood Count 3.85 m/uL (4.00-5.20); White Blood Count* 6.65 K/uL (4.50-11.00)
[2025-02-15 07:05] LABS: Slide Review Reflex No
[2025-02-15 07:17] LABS: Albumin* 3.3 g/dL (3.3-5.0); Chloride* 103 mmol/L (96-114); Potassium* 4.2 mmol/L (3.6-5.1); Sodium* 138 mmol/L (135-149)
[2025-02-15 07:19] LABS: Anion Gap 7 mEq/L (7-15); Blood Urea Nitrogen* 52 mg/dL (7-30); Carbon Dioxide* 28 mmol/L (20-32); Creatinine* 1.8 mg/dL (0.5-1.5); Est. Creatinine Clearance* 19.44; Estimated Glomerular Filt Rate 27 ml/min
[2025-02-15 07:20] LABS: Alanine Aminotransferase* 167 U/L (4-35); Alkaline Phosphatase* 383 U/L (40-150); Aspartate Amino Transferase* 241 U/L (12-35); Bilirubin Direct* 0.8 mg/dL (0.0-0.5); Calcium* 8.7 mg/dL (8.4-10.6); Gamma Glutamyl Transpeptidase* 184 U/L (8-55); Glucose* 128 mg/dL (60-115); Total Protein* 6.1 g/dL (6.0-8.3)
--- NOTE | 2025-02-15 08:16 | P.DS_ITS ---
Transfer Discharge Sum: Prov Provider Date Seen: 02/15/25 Date of admission: 02/12/25 22:14 Primary care physician: Anisa Matthews, DIGITAL STRATEGIST, CAR DROPPER Consults: OT, PT, SW Attending physician on discharge: Ksenia Ray Discharging clinician: Ksenia Ray Anticipated date of transfer: 02/15/25 Receiving physician/facility: [facility] DS: Diagnosis Discharge Diagnosis (1) Acute alteration in mental status: Status: Acute Problem details: - on admission, daughter notes approximately 6 days of symptoms (coincides with d/c from [facility]), including speech and word finding difficulties - ddx: UTI, GI illness, intracranial process, metabolic encephalopathy, iatrogenic, worsening of known cognitive impairment - reassuring head CT, CBC, electrolytes - Urine culture + for E Coli, Ceftriaxone initiated and transitioned to oral Keflex 02/14 - HELD Buprenorphine and Tizanidine during stay, restarted Lyrica on 02/13 - therapies followed, recommend SNF stay (accepted at [facility] in [place], [place]) - improved mentation during stay, MOCA (2) Acute UTI: Status: Acute Problem details: - UA: cloudy, positive nitrites, 2+ LE, 10-25 WBC, many bacteria - previous UC from 01/01 grew Klebsiella pneumonia - transitioned from IV Ceftriaxone to oral Keflex on 02/14 (3) Lower extremity edema: Status: Acute Problem details: - received Lasix 40 mg IV x1 on 02/12 - 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, cautiously reintroduced low dose daily Lasix on 02/13, did have a bump in creatinine from 1.4 --> 1.8 on this dose - compression stockings (4) CHF (congestive heart failure): Status: Acute Problem details: - HFpEF with most recent TTE 06/2024 (EF 61%) - diuretic plan per above (5) Dilation of biliary tract: Status: Acute Problem details: - CT: intrahepatic and extrahepatic biliary dilation (incidentally noted pancreatic parenchymal atrophy and ductal dilation) - U/S: CBD 1.2cm, possible gallbladder debris vs bowel - unable to have MRCP 2/2 pacemaker - LFTs increased 02/15, recommend transfer for ERCP (6) Type 2 diabetes mellitus: Status: Acute Problem details: - during stay: continued Jardiance, home dose Lantus 14 units and Aspart 6U TID with meals - Glucose checks ACHS and insulin sliding scale, last A1C 8.0 11/2024 (7) Cognitive impairment: Status: Acute Problem details: - 12/24/24 MOCA - 02/14/25: MOCA (8) Atrial fibrillation: Status: Acute Problem details: - on Metoprolol and Eliquis as outpatient, continued (9) Spinal stenosis: Status: Acute Problem details: - with resultant chronic pain; has a spinal stimulator in place (not currently turned on), s/p mechanical fall in 10/31 causing a sacral fracture - most recent back imaging is a CT scan of lumbar spine 12/22/2024: 1. Recent (acute/subacute) L4 compression fracture and bilateral sacral ala fractures. 2. Chronic-appearing compression deformities at T12, L1, and L3, with cement augmentation at T12 and L3. 3. Spondylosis and spondylolisthesis as detailed, with suspected moderate to severe spinal canal stenosis at L4-5. Transfer Discharge Sum: Med Medications Active and Home Medications: Home Medications lubiprostone 24 mcg capsule 24 mcg PO BID 10/26/23 [History Confirmed 02/13/25] metoprolol tartrate 25 mg tablet 12.5 mg PO BID 10/26/23 [History Confirmed 02/13/25] sennosides 8.6 mg-docusate sodium 50 mg tablet (Senna Plus) 1 tab PO BID PRN 10/26/23 [History Confirmed 02/13/25] apixaban 2.5 mg tablet (Eliquis) 2.5 mg PO BID #180 tabs 02/03/24 [Rx Confirmed 02/13/25] omeprazole 40 mg capsule,delayed release 40 mg PO BID #180 caps 03/22/24 [Rx Confirmed 02/13/25] nystatin 100,000 unit/gram topical cream 1 applic topical BID #30 grams 10/30/24 [Rx Confirmed 02/13/25] diclofenac sodium 1 % topical gel 2 g topical QID PRN 11/23/24 [History Confirmed 02/13/25] insulin aspart U-100 100 unit/mL subcutaneous solution (Novolog U-100 Insulin aspart) 6 unit subcut TIDWM 11/23/24 [History Confirmed 02/13/25] insulin glargine 100 unit/mL (3 mL) subcutaneous pen (Lantus Solostar U-100 Insulin) 14 unit subcut QAM 11/23/24 [History Confirmed 02/13/25] lidocaine 5 % topical patch 1 patch transdermal Q24H #30 ea 12/26/24 [Rx Confirmed 02/13/25] buprenorphine HCl 2 mg sublingual tablet 2 mg sublingual DAILY 02/12/25 [History Confirmed 02/13/25] escitalopram oxalate 5 mg tablet (Lexapro) 5 mg PO DAILY 02/12/25 [History Confirmed 02/13/25] meclizine 12.5 mg tablet 12.5 mg PO TID PRN dizziness 02/12/25 [History Confirmed 02/13/25] acetaminophen 500 mg tablet (Tylenol Extra Strength) 1,000 mg PO BID 02/13/25 [History Confirmed 02/13/25] dapagliflozin propanediol 5 mg tablet 5 mg PO DAILY 02/13/25 [History Confirmed 02/13/25] pregabalin 50 mg capsule (Lyrica) 50 mg PO BID 02/13/25 [History Confirmed 02/13/25] tizanidine 2 mg capsule 2 mg PO QHS 02/13/25 [History Confirmed 02/13/25] Active Medications Acetaminophen (Acetaminophen 325 Mg Tablet) 975 mg PO Q6H PRN Apixaban (Apixaban 5 Mg Tablet) 2.5 mg PO BID [facility] Last Admin: 02/14/25 20:22 Dose: 2.5 mg Bisacodyl (Bisacodyl 10 Mg Supp.Rect) 10 mg [place] DAILY PRN Cephalexin HCl (Cephalexin 500 Mg Capsule) 500 mg PO TID [facility] Last Admin: 02/14/25 20:25 Dose: 500 mg Empagliflozin (Empagliflozin 10 Mg Tablet) 10 mg PO QAM [facility] Last Admin: 02/14/25 09:35 Dose: 10 mg Escitalopram Oxalate (Escitalopram 10 Mg Tablet) 5 mg PO DAILY [facility] Last Admin: 02/14/25 09:34 Dose: 5 mg Furosemide (Furosemide 20 Mg Tablet) 20 mg PO DAILY@0800 [facility] Last Admin: 02/14/25 09:36 Dose: 20 mg Insulin Aspart (Insulin Aspart 100 Unit/Ml) 0 unit SUBCUT [facility]; Protocol Last Admin: 02/14/25 22:16 Dose: Not Given Insulin Aspart (Insulin Aspart 100 Unit/Ml) 6 unit SUBCUT TIDWM [facility] Last Admin: 02/14/25 19:05 Dose: Not Given Insulin Glargine (Insulin Glargine,Hum.Rec.Anlog 100 Unit/Ml Insuln.Pen) 7 unit SUBCUT DAILY [facility] Last Admin: 02/14/25 09:31 Dose: 7 unit Lidocaine (Lidocaine 5% Patch) 1 patch TRANSDERMA Q24H [facility]; Protocol Last Admin: 02/14/25 20:27 Dose: 1 patch Meclizine HCl (Meclizine Hcl 25 Mg Tablet) 12.5 mg PO TID PRN PRN Reason: dizziness Last Admin: 02/13/25 19:56 Dose: 12.5 mg Melatonin (Melatonin 3 Mg Tablet) 3 - 6 mg PO HS PRN Metoprolol Tartrate (Metoprolol Tartrate 25 Mg Tablet) 12.5 mg PO BID [facility] Last Admin: 02/14/25 20:24 Dose: 12.5 mg Lubiprostone 24 Mcg (Capsule) 24 mcg PO BID [facility] Last Admin: 02/14/25 20:26 Dose: Not Given Nystatin (Nystatin Cream 30 Gm) 1 applic TOPICAL BID [facility] Last Admin: 02/14/25 20:26 Dose: Not Given Omeprazole (Omeprazole [address]) 40 mg PO BID [facility] Last Admin: 02/14/25 20:23 Dose: 40 mg Ondansetron HCl (Ondansetron Odt 4 Mg Tab) 4 mg PO Q6H PRN Last Admin: 02/13/25 21:01 Dose: 4 mg Polyethylene Glycol (Polyethylene Glycol 3350 17 Gm Pack) 17 gm PO DAILY PRN Pregabalin (Pregabalin 50 Mg Capsule) 50 mg PO BID [facility] Last Admin: 02/14/25 20:24 Dose: 50 mg Senna/Docusate Sodium (Sennosides/Docusate Tablet) 1 tab PO BID PRN Sodium Chloride (Sodium Chloride 0.9 % (Flush) 10 Ml Syringe) 5 ml IVF .FLUSH PRN Sodium Chloride (Sodium Chloride 0.9 % (Flush) 10 Ml Syringe) 5 ml IVF BID [facility] Last Admin: 02/14/25 20:26 Dose: 5 ml Sodium Chloride (0.9 % Sodium Chloride 250 Ml) 250 ml IV Q24H [facility] Last Admin: 02/14/25 18:08 Dose: Not Given Transfer Discharge Sum: Hosp Hospital Course Hospital course: Hayde Fong is a 89 year old female with cognitive impairment who was admitted to the hospital on 02/12/25 for confusion. Comorbidities include IDDM2, HFpEF, atrial fibrillation, CKD, chronic pain. In the ER: - noted to have +UA, Ceftriaxone initiated - + dilated CBD on imaging (ultrasound and CT). Unable to have MRCP 2/2 pacemaker. History: Mechanical fall in 10/2024, found to have an acute sacral fracture and was hospitalized at [facility] in [place] for 3 weeks, then discharged to [facility] for 3 weeks. Discharged from SNF to a new apartment in December, which didn't go well (worsening acute on chronic pain); hospitalized in [place] from 12/22/24- 12/27/24 and discharged back to [facility] for another SNF stay. From SNF, she was discharged back to her apartment on 02/06/25. At home, daughter is helping with medications (lives close), but Pat is pretty sure she's not taking her medications appropriately; also notes a few mechanical falls in the past week. Home PT was ordered upon [facility] d/c but had not yet started prior to re- admission here. During stay: - urine culture + for E Coli, transitioned from IV Ceftriaxone to oral Cephalexin per sensitivities on 02/14/25 - repeat SNF stay recommended per therapies - MOCA - mild increase in creatinine from 1.4 -> 1.8 on 02/15 (presumably mild prerenal azotemia 2/2 reinitiation of Furosemide) - LFTs significantly increased 02/15: bilirubin 0.5 -> 0.8 AST 40 -> 241 ALT 35-> 167 Alk phos 155 -> 383 Reviewed findings with our General Surgery team, who recommend transfer for ERCP. Patient made NPO 4/10am, accepted by Dr. Flaherty at [facility] for transfer. Time Spent with Patient Time attestation: Total time spent providing and/or coordinating transfer services: Total time spent: Greater than 30 minutes Exam Narrative: Exam Narrative: GEN: Awake and alert, nontoxic HEENT: EOMIs, poor dentition with multiple missing teeth, no acute dental infection CV: RRR, soft systolic murmur without concerning features R: LCTA bilaterally without concerning wheezing Ab: Soft, negative true Westfall's sign, mild discomfort with deep palpation of RUQ Ext: 1-2+ edema BLE Skin: No concerning skin lesions or rashes on exposed skin Neuro: No focal deficits or resting tremor, gait not observed Psych: MCI noted, loquacious, no agitation Const: Vital Signs, click to edit/add: Vital Signs - 24 hr 02/14/25 11:00 02/14/25 15:00 02/14/25 20:40 Temperature 98.5 F 97.9 F Pulse Rate [Pulse Oximeter] 60 62 60 Respiratory Rate 16 18 18 Blood Pressure [Ri ght Arm] 120/67 117/61 Pulse Oximetry 95 93 Oxygen Delivery Me thod Room Air Room Air 02/14/25 23:00 02/14/25 23:30 02/15/25 04:33 Temperature Pulse Rate [Pulse Oximeter] Respiratory Rate 14 14 16 Blood Pressure [Ri ght Arm] Pulse Oximetry Oxygen Delivery Me thod Discharge Plan Discharge Disposition: [facility] Date of Admission: 02/12/25 22:14 Attending Provider on Discharge: Ksenia Ray Primary Care Provider: Anisa Matthews Condition: Stable Discharge Orders: Transfer of Care to Other Hospital (ORDER); Ordered 02/15/25 Ordered By: Ksenia Ray Oxygen: No Urinary Catheter: No Services not available here: GI/ERCP
[2025-02-15] MEDS: FUROSEMIDE 20 MG TABLET PO (08:18)
[2025-02-15 08:23] VITALS: BP 141/69; PULSE 64; RESP 18; TEMP 36.6; O2SAT 91
[2025-02-15] MEDS: EMPAGLIFLOZIN 10 MG TABLET PO (09:27)
[2025-02-15] MEDS: OMEPRAZOLE 20 MG CAPSULE DR 40 MG PO (09:27)
[2025-02-15] MEDS: cephALEXin 500 MG CAPSULE PO (09:27)
[2025-02-15] MEDS: METOPROLOL TARTRATE 25 MG TABLET 12.5 MG PO (09:27)
[2025-02-15] MEDS: ESCITALOPRAM 10 MG TABLET 5 MG PO (09:27)
[2025-02-15] MEDS: APIXABAN 5 MG TABLET 2.5 MG PO (09:27)
[2025-02-15] MEDS: SODIUM CHLORIDE 0.9 % (FLUSH) 10 ML SYRINGE 5 ML IVF (09:28)
[2025-02-15] MEDS: PREGABALIN 50 MG CAPSULE PO (09:42)
--- NOTE | 2025-02-15 09:57 | PC.NURSE ---
Patient will be transferring to [facility]. Pdosq-sa-kitod report given to Nurse Emma at [facility] 3527.
--- NOTE | 2025-02-15 10:46 | PC.NURSE ---
Discharge: Patient pleasant and cooperative, A&O. VSS, afebrile. SpO2 maintained above 90% on RA. Pt denies pain this shift. Transferred to [facility] via non emergent ambulance.
--- NOTE | 2025-02-15 13:04 | PC.SOCIAL ---
Discharge planning: Pt will be transferring to [facility] for ERCP. mental health social worker notified raegna Thomas for [facility] that pt will be transferring to another hospital and to cancel the referral. mental health social worker also notified [facility] that the pt will not be going to a [facility]. Social work to follow-up as needed.
== END 2025-02-15 10:24 | disposition short-term general hospital (02) | DRG 689 ==
LOC: ED 21:41 → MEDSURG 22:14
PROVIDERS: Family Medicine; Admitting Provider Physician Assistant; Emergency Provider Student in an Organized Health Care Education/Training Program; PCP Nurse Practitioner Family; Visit Provider Family Medicine
DX: N39.0 Urinary tract infection, site not specified (principal); G93.41 Metabolic encephalopathy; I50.33 Acute on chronic diastolic (congestive) heart failure; Z16.11 Resistance to penicillins; I13.0 Hypertensive heart and chronic kidney disease with heart failure and stage 1 through stage 4 chronic kidney disease, or unspecified chronic kidney disease; N17.9 Acute kidney failure, unspecified; K83.8 Other specified diseases of biliary tract; B96.20 Unspecified Escherichia coli [E. coli] as the cause of diseases classified elsewhere; R60.0 Localized edema; N18.32 Chronic kidney disease, stage 3b; E11.22 Type 2 diabetes mellitus with diabetic chronic kidney disease; K86.89 Other specified diseases of pancreas; Z79.4 Long term (current) use of insulin; R41.82 Altered mental status, unspecified; Z79.84 Long term (current) use of oral hypoglycemic drugs; I48.91 Unspecified atrial fibrillation; Z79.01 Long term (current) use of anticoagulants; M48.061 Spinal stenosis, lumbar region without neurogenic claudication; S32.049D Unspecified fracture of fourth lumbar vertebra, subsequent encounter for fracture with routine healing; S32.10XD Unspecified fracture of sacrum, subsequent encounter for fracture with routine healing; F41.9 Anxiety disorder, unspecified; F32.A Depression, unspecified; Z95.0 Presence of cardiac pacemaker; K21.9 Gastro-esophageal reflux disease without esophagitis; Z78.9 Other specified health status; Z96.82 Presence of neurostimulator
CPT/HCPCS: 36415; 70450; 70496; 70498; 74177; 76705; 80048; 80053; 80076; 81001; 82565; 82962; 82977; 83690; 83735; 83880; 84484; 85025; 85027; 86140; 87086; 87631; 93005; 97116; 97162; 97165; 97530; 97535; 99285; A9270; J0696; J1200; J1720; J1815; J1938; J7050; Q9967

== ENCOUNTER 2025-02-15 10:15 | Outpatient (CLI) | payer MEDICARE, BC, SELFPAY | END 2025-02-15 10:16 | disposition home or self-care (01) | LOC: AMB 03-15 14:40 | PROVIDERS: PCP Nurse Practitioner Family; Visit Provider Emergency Medicine | DX: R41.82 Altered mental status, unspecified (principal); N39.0 Urinary tract infection, site not specified; R60.0 Localized edema; I50.9 Heart failure, unspecified; N18.32 Chronic kidney disease, stage 3b | CPT/HCPCS: A0425; A0428 ==

== ENCOUNTER 2025-08-21 15:19 | Outpatient (REF) | payer MEDICARE, BC, SELFPAY ==
[2025-08-21 16:38] LABS: Hematocrit* 34.0 % (33.0-51.0); Hemoglobin* 10.4 gm/dL (12.0-16.0); Immature Granulocytes Abs Auto 0.01 K/uL (0.00-0.30); Immature Granulocytes Pct Auto 0.1 %; Mean Corpuscular HGB Conc 31 gm/dL (32-36); Mean Corpuscular Hemoglobin 30 pg (26-34); Mean Corpuscular Volume 97 fL (80-100); RDW Coefficient of Variation % 17.2 % (11.5-15.5); Red Blood Count* 3.51 m/uL (4.00-5.20); White Blood Count* 8.52 K/uL (4.50-11.00)
[2025-08-21 16:42] LABS: Lymphocytes Absolute Auto 1.30 K/uL (0.90-2.90); Slide Review Reflex No
[2025-08-21 16:52] LABS: Albumin* 3.3 g/dL (3.3-5.0); Chloride* 100 mmol/L (96-114); Potassium* 3.5 mmol/L (3.6-5.1); Sodium* 135 mmol/L (135-149)
[2025-08-21 16:55] LABS: Alanine Aminotransferase* 12 U/L (4-35); Alkaline Phosphatase* 143 U/L (40-150); Anion Gap 4 mEq/L (7-15); Aspartate Amino Transferase* 21 U/L (12-35); Bilirubin Total* 1.0 mg/dL (0.1-1.5); Blood Urea Nitrogen* 26 mg/dL (7-30); Calcium* 8.8 mg/dL (8.4-10.6); Carbon Dioxide* 31 mmol/L (20-32); Creatinine* 1.3 mg/dL (0.5-1.5); Estimated Glomerular Filt Rate 39 ml/min; Glucose* 137 mg/dL (60-115); Total Protein* 6.3 g/dL (6.0-8.3)
--- OUTSIDE RECORDS SUMMARY | 2025-08-22 00:16 | XMS_ITS | Encounter Summary ---
Author Organization [place] Address [address] [place] [address] Care Team Providers Care International Account Manager Name Role Phone Chu Cruz PA-C Primary Care Provider Minna Chawla RN Unavailable Unavailable Minna Chawla RN Unavailable Unavailable Chu Cruz PA-C Unavailable Dario Potter MD Unavailable Luis Miguel Woodson MD Unavailable Unavailable Daisy Mejia NP Unavailable Aruna Mart Unavailable Chris Ricketts DPM Unavailable Chris Ricketts DPM Unavailable Clem Maynard MD Unavailable Unavailable Clem Maynard MD Unavailable Unavailable Encounter Details Date Type Department Care Team (Late st Contact Info) Description 12/24/2021 MyC Medical Advice [facility] Scheduling [place] [address] Radha Lord Social History Tobacco [...] Sex Assigned at Female 01/14/2021 7:41 PM RESIN FILTERER Legal Sex Female 6:11 PM CDT Gender Identity Female 01/14/2021 7:41 PM RESIN FILTERER Sexual Orientation Straight 01/14/2021 7: 41 PM RESIN FILTERER COVID-19 Exposure Response Date Recorded In the last month, have you been in contact with someone who was confirmed or suspected to have Coronavirus / COVID-19? No / Unsure 12/12/2021 3:26 PM RESIN FILTERER documented as of this encounter Plan of [...] documented as of this encounter Care Teams International Account Manager Relationship Specialty Start Date End Date Chu Cruz PA-C [address] [address] PCP - General Physician Application Spec 07/07/17 Minna Chawla RN [address] [address] Peer Specialist Diabetes Education 06/30/18 Minna Chawla RN [address] [address] Peer Specialist Diabetes Education 06/30/18 Chu Cruz PA-C [address] [address] Assigned PCP 11/14/17 Dario Potter MD [address] [place] [address] Assigned Musculoskeletal Provider 08/30/20 01/10/22 Luis Miguel Woodson MD Assigned Heart and Vascular Provider 08/30/20 06/26/22 Daisy Mejia NP [address] [place] [address] [place] [address] Assigned Neuroscience Provider 09/07/21 03/05/23 Aruna Mart [address] [facility] [place] [address] Peer Specialist 01/16/22 Chris Ricketts DPM [address] [facility] [place] [address] Assigned Musculoskeletal Provider 01/11/22 12/11/22 Chris Ricketts DPM [address] [facility] [place] [address] Assigned Surgical Provider 12/12/22 02/28/24 Clem Maynard MD [address] [facility] [place] [address] Cardiovascular Disease 01/07/23 Clem Maynard MD [address] [facility] [place] [address] Assigned Heart and Vascular Provider 01/16/23 07/30/24 documented as of this encounter
--- OUTSIDE RECORDS SUMMARY | 2025-08-22 00:16 | XMS_ITS | Encounter Summary ---
Author Organization [place] Address [address] [facility] [place] [address] Care Team Providers Care Rn Imcu Name Role Phone Chu Cruz PA-C Primary Care Provider Minna Chawla RN Unavailable Unavailable Minna Chawla RN Unavailable Unavailable Chu Cruz PA-C Unavailable Dario Potter MD Unavailable [phone] Luis Miguel Woodson MD Unavailable Unavailable Daisy Mejia NP Unavailable A[place]a Mart Unavailable [phone] Chris Ricketts DPM Unavailable Chris Ricketts DPM Unavailable Clem Maynard MD Unavailable Unavailable Clem Maynard MD Unavailable Unavailable Encounter Details Date Type Department Care Team (Late st Contact Info) Description 02/24/2021 [facility] [address] [facility] [address] [place] [id number] Chu Cruz PA-C [address] [place] [address] Social History Tobacco Use Types Packs/Day Years Used Date Smoking Tobacco: Former Smokeless Tobacco: Never Comments:only 6 months use Alcohol Use Standard Drinks/Week Comments Yes 0 (1 standard drink = 0.6 oz pur e alcohol) rarely PHQ-2 Answer Date Recorded PHQ-2 Score 3 02/26/2021 Comments No Sex and Gender Information Value Date Recorded Sex Assigned at Female 01/14/2021 7:41 PM AEROSPACE PROJECT ENGINEER Legal Sex Female 6:11 PM CDT Gender Identity Female 01/14/2021 7:41 PM AEROSPACE PROJECT ENGINEER Sexual Orientation Straight 01/14/2021 7: 41 PM AEROSPACE PROJECT ENGINEER COVID-19 Exposure Response Date Recorded In [...] as of this encounter Care Teams Rn Imcu Relationship Specialty Start Date End Date Chu Cruz PA-C [address] [address] PCP - General Physician Cafe Aide 07/07/17 Minna Chawla RN [address] [address] Motion Picture Camera Operator Diabetes Education 06/30/18 Minna Chawla RN [address] [address] Motion Picture Camera Operator Diabetes Education 06/30/18 Chu Cruz PA-C [address] [address] Assigned PCP 11/14/17 Dario Potter MD [address] [place] [address] Assigned Musculoskeletal Provider 08/30/20 01/10/22 Luis Miguel Woodson MD Assigned Heart and Vascular Provider 08/30/20 06/26/22 Daisy Mejia NP [address] [address] Assigned Neuroscience Provider 09/07/21 03/05/23 Aruna Mart [address] [place] [address] Motion Picture Camera Operator 01/16/22 Chris Ricketts DPM [address] [place] [address] [place] [address] Assigned Musculoskeletal Provider 01/11/22 12/11/22 Chris Ricketts DPM [address] [place] [address] Assigned Surgical Provider 12/12/22 02/28/24 Clem Maynard MD [address] [place] [address] [place] [address] Cardiovascular Disease 01/07/23 Clem Maynard MD [address] [place] [address] [place], [place] [address] Assigned Heart and Vascular Provider 01/16/23 07/30/24 documented as of this encounter
--- OUTSIDE RECORDS SUMMARY | 2025-08-22 00:16 | XMS_ITS | Encounter Summary ---
Author Organization [place] Address [address] [place] [address]. [place] [address] Care Team Providers Care Roll Over Press Operator Name Role Phone Chu Cruz PA-C Primary Care Provider Minna Chawla RN Unavailable Unavailable Minna Chawla RN Unavailable Unavailable Chu Cruz PA-C Unavailable [phone] Aruna Mart Unavailable [phone] Clem Maynard MD Unavailable Unavailable Encounter Details Date Type Department Care Team (Late st Contact Info) Description 12/13/2024 MyC Medical Advice [address] [place] [phone] Joanna Ascencio, TAPE CALENDER Social History Tobacco Use Types Packs/Day Years [...] Sex Assigned at Female 01/14/2021 7:41 PM CHILD WELFARE CONSULTANT Legal Sex Female 6:11 PM CDT Gender Identity Female 01/14/2021 7:41 PM CHILD WELFARE CONSULTANT Sexual Orientation Straight 01/14/2021 7: 41 PM CHILD WELFARE CONSULTANT documented as of this encounter Plan of Treatment Not on file documented as of this encounter Visit Diagnoses Not on filedocumented in this encounter Additional Health Concerns Assessment Noted Time PHQ-9 Depression Total Score: 10 023 10:36 AM CDT documented as of this encounter Care Teams Roll Over Press Operator Relationship Specialty Start Date End Date Chu Cruz PA-C [address] [address] PCP - General Physician Roadmaster 07/07/17 Minna Chawla RN [address] [address] Rn Community Diabetes Education 06/30/18 Minna Chawla RN [address] [address] Rn Community Diabetes Education 06/30/18 Chu Cruz PA-C [address] [place] [address] Assigned PCP 11/14/17 Aruna Mart [address] [place] [address] Rn Community 01/16/22 Clem Maynard MD [address] [place] [address] Cardiovascular Disease 01/07/23 documented as of this encounter
--- OUTSIDE RECORDS SUMMARY | 2025-08-22 00:16 | XMS_ITS | Encounter Summary ---
Author Organization [place] Address [address] [place] [address] Care Team Providers Care Embosser Apprentice Name Role Phone Chu Cruz PA-C Primary Care Provider Minna Chawla RN Unavailable Unavailable Minna Chawla RN Unavailable Unavailable Chu Cruz PA-C Unavailable [phone] Daisy Mejia PREMISES TECHNICIAN Unavailable Aruna Mart Unavailable [phone] Chris Ricketts DPM Unavailable [phone] Clem Maynard MD Unavailable Unavailable Clem Maynard MD Unavailable Unavailable Encounter Details Date Type Department Care Team (Latest Contact Info) Description 01/18/2023 Historic Results Social History Tobacco Use Types Packs/Day Years Used Date Smoking Tobacco: Former Cigarettes Smokeless Tobacco: Never Comments:only 6 months use Alcohol Use Standard Drinks/Week Comments Yes 0 (1 standard drink = 0.6 oz pur e alcohol) rarely PHQ-2 Answer Date Recorded PHQ-2 Score 2 01/18/2023 Comments No Sex and Gender Information Value Date Recorded Sex Assigned at Female 01/14/2021 7:41 PM DISTRICT CUSTOMS DIRECTOR Legal Sex Female 6:11 PM CDT Gender Identity Female 01/14/2021 7:41 PM DISTRICT CUSTOMS DIRECTOR Sexual Orientation Straight 01/14/2021 7: 41 PM DISTRICT CUSTOMS DIRECTOR COVID-19 Exposure Response Date Recorded In the last 10 days, have coleman u been in contact with someone who was confirmed or suspected to have Coronavirus/COVID-19? No / Unsure 01/18/2023 10:23 AM CDT documented as of this encounter Plan of Treatment Not on file documented as of this encounter Visit Diagnoses Not on filedocumented in this encounter Additional Health Concerns Assessment Noted Time PHQ-9 Depression Total Score: 17 023 10:42 AM CDT documented as of this encounter Care Teams Embosser Apprentice Relationship Specialty Start Date End Date Chu rCuz PA-C [address] [address] PCP - General Physician Drug And Alcohol Treatment Specialist 07/07/17 Minna Chawla RN [address] [address] Pest Control Service Technician Diabetes Education 06/30/18 Minna Chawla RN [address] [address] Pest Control Service Technician Diabetes Education 06/30/18 Chu Cruz PA-C [address] [address] Assigned PCP 11/14/17 Daisy Mejia NP [address] [facility] [address] [place] [address] Assigned Neuroscience Provider 09/07/21 03/05/23 Aruna Mart [address] [place] [address] [place] [id number] Pest Control Service Technician 01/16/22 Chris Ricketts DPM [address] [place] [address] [place] [id number] Assigned Surgical Provider 12/12/22 02/28/24 Clem Maynard MD [address] [facility] [place] [address] Cardiovascular Disease 01/07/23 Clem Maynard MD [address] [facility] [place] [address] Assigned Heart and Vascular Provider 01/16/23 07/30/24 documented as of this encounter
--- OUTSIDE RECORDS SUMMARY | 2025-08-22 00:16 | XMS_ITS | Encounter Summary ---
Author Organization [facility] Address [address] [place] [address] Care Team Providers Care Rag Inspector Name Role Phone Chu Cruz PA-C Primary Care Provider Minna Chawla RN Unavailable Unavailable Minna Chawla RN Unavailable Unavailable Chu Cruz PA-C Unavailable Luis Miguel Woodson MD Unavailable Unavailable Daisy Mejia CREDIT COUNSELOR Unavailable Arnua Mart Unavailable [phone] Chris Ricketts DPM Unavailable Chris Ricketts DPM Unavailable [phone] Clem Maynard MD Unavailable Unavailable Clem Maynard MD Unavailable Unavailable Encounter Details Date Type Department Care Team (Late st Contact Info) Description 01/16/2022 [facility] Medical Advice [facility] Diabetes Education [address] [place] [address] Aruna Mart [address] [place] [address] Social History Tobacco Use Types Packs/Day Years Used Date Smoking Tobacco: Former Smokeless Tobacco: Never Comments:only 6 months use Alcohol Use Standard Drinks/Week Comments Yes 0 (1 standard drink = 0.6 oz pur e alcohol) rarely PHQ-2 Answer Date Recorded PHQ-2 Score 2 08/15/2021 Comments No Sex and Gender Information Value Date Recorded Sex Assigned at Female 01/14/2021 7:41 PM COLOR DRUM WORKER Legal Sex Female 6:11 PM CDT Gender Identity Female 01/14/2021 7:41 PM COLOR DRUM WORKER Sexual Orientation Straight 01/14/2021 7: 41 PM COLOR DRUM WORKER COVID-19 Exposure Response Date Recorded In the last month, have you been in contact with someone who was confirmed or suspected to have Coronavirus / COVID-19? No / Unsure 01/07/2022 1:45 PM COLOR DRUM WORKER documented as of this encounter Plan of [...] documented as of this encounter Care Teams Rag Inspector Relationship Specialty Start Date End Date Chu Cruz PA-C [address] [address] PCP - General Physician Personal Clothing Laundry Aide 07/07/17 Minna Chawla RN [address] [address] Diesel Plant Operator Diabetes Education 06/30/18 Minna Chawla RN [address] [address] Diesel Plant Operator Diabetes Education 06/30/18 Chu Cruz PA-C [address] [address] Assigned PCP 11/14/17 Luis Miguel Woodson MD Assigned Heart and Vascular Provider 08/30/20 06/26/22 Daisy Mejia NP [address] [address] Assigned Neuroscience Provider 09/07/21 03/05/23 Aruna Mart [address] [facility] [address] [address] Diesel Plant Operator 01/16/22 Chris Ricketts DPM 9 [facility] [address] [address] Assigned Musculoskeletal Provider 01/11/22 12/11/22 Chris Ricketts DPM 9 [facility] [address] [address] Assigned Surgical Provider 12/12/22 02/28/24 Clem Maynard MD 9 [facility] [address] [address] Cardiovascular Disease 01/07/23 Clem Maynard MD 9 [facility] [address] [address] Assigned Heart and Vascular Provider 01/16/23 07/30/24 documented as of this encounter
--- OUTSIDE RECORDS SUMMARY | 2025-08-22 00:16 | XMS_ITS ---
Author Organization [facility] Address [address] [place] [address] Care Team Providers Care Piecer Up Name Role Phone Chu Cruz PA-C Primary Care Provider Minna Chawla RN Unavailable Unavailable Minna Chawla RN Unavailable Unavailable Chu Cruz PA-C Unavailable [phone] Aruna Mart Unavailable [phone] Clem Maynard MD Unavailable Unavailable Diabetes Self-Management Education Status:Enrolled (Active) Start date:06/30/2018 Enrollment date:06/30/2018 Case Team Name Relationship Phone Minna Chawla RN(Responsible Staff) Diabetes E ducator Continued Care and Services Coordination
--- OUTSIDE RECORDS SUMMARY | 2025-08-22 00:16 | XMS_ITS | Encounter Summary ---
Author Organization [facility] Address [address] [place] [address] Care Team Providers Care Plant Operations Vice President Name Role Phone Chu Cruz PA-C Primary Care Provider Minna Chawla RN Unavailable Unavailable Minna Chawla RN Unavailable Unavailable Chu Cruz PA-C Unavailable Dario Potter MD Unavailable Luis Miguel Woodson MD Unavailable Unavailable Daisy Mejia NP Unavailable [phone] Aruna Mart Unavailable [phone] Chris Ricketts DPM Unavailable [phone] Chris Ricketts DPM Unavailable Clem Maynard MD Unavailable Unavailable Clem Maynard MD Unavailable Unavailable Encounter Details Date Type Department Care Team (Late st Contact Info) Description 12/26/2021 [facility] [address] [address] Radha Fung, RN Social History [...] Sex Assigned at Female 01/14/2021 7:41 PM 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 No / Unsure 12/12/2021 3:26 PM DAIRY CATTLE FARM WORKER documented as of this encounter Plan [...] documented as of this encounter Care Teams Plant Operations Vice President Relationship Specialty Start Date End Date Chu Cruz PA-C [address] [address] PCP - General Physician Sales Secretary 07/07/17 Minna Chawla RN [address] [address] Mainframe Developer Diabetes Education 06/30/18 Minna Chawla RN [address] [address] Mainframe Developer Diabetes Education 06/30/18 Chu Cruz PA-C [address] [address] Assigned PCP 11/14/17 Dario Potter MD [address] [place] [address] Assigned Musculoskeletal Provider 08/30/20 01/10/22 Luis Miguel Woodson MD Assigned Heart and Vascular Provider 08/30/20 06/26/22 Daisy Mejia BOX FINISHER [address] [place] [address], [place] [address] Assigned Neuroscience Provider 09/07/21 03/05/23 Aruna Mart 9 [facility] [address] Mainframe Developer 01/16/22 Chris Ricketts DPM 9 [facility] [address] [address] Assigned Musculoskeletal Provider 01/11/22 12/11/22 Chris Ricketts DPM 9 [facility] [place] [address] Assigned Surgical Provider 12/12/22 02/28/24 Clem Maynard MD [address] [facility] [address] [address] Cardiovascular Disease 01/07/23 Clem Maynard MD 9 [facility] [place] [address] Assigned Heart and Vascular Provider 01/16/23 07/30/24 documented as of this encounter
--- OUTSIDE RECORDS SUMMARY | 2025-08-22 00:16 | XMS_ITS | Clinical Summary ---
Author Organization [facility] Address [address] [place] [address] Care Team Providers Care Fitness Trainer Name Role Phone Chu Cruz PA-C Primary Care Provider Minna Chawla RN Unavailable Unavailable Minna Chawla RN Unavailable Unavailable Chu Cruz PA-C Unavailable [phone] Aruna Mart Unavailable [phone] Clem Maynard MD Unavailable Unavailable Allergies Active Allergy Reactions Criticality Noted Date [...] or as directed. 100 each 5 09/14/20 19 Active blood glucose monitoring (NO BRAND SPECIFIED) meter device kitIndications:Ty pe 2 diabetes mellitus with insulin therapy (H) Use to test blood sugar 3 times daily or as directed. Preferred blood glucose meter OR supplies to accompany: Blood Glucose Monitor Brands: per insurance. 1 kit 12/27/19 21 Active blood glucose calibration (NO BRAND SPECIFIED) solutionIndicatio ns: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 (H) To accompany: Blood Glucose Monitor Brands: per insurance. 1 Bottle 3 12/27/19 21 Active thin (NO BRAND SPECIFIED) lancetsIndication s:Type [...] 2.5 MG tabletIndications :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 fibrillation (H),termite helper current use of anticoagulants with INR goal [...] 90 tablet 04/29/20 23 Active nystatin (MYCOSTATIN) [id number] UNIT/GM external powderIndications :Intertrigo Apply topically 2 [...] tablet 12/01/19 24 Active Continuous Blood Gluc Glass Melt Operator (DEXCOM G7 THERAPEUTIC RECREATION LEADER) ROYCE 1 Application by In Vitro route See Admin Instructions 01/28/20 24 Active oxyCODONE IR (ROXICODONE) 10 MG tablet Take 1 tablet by mouth every 8 hours as needed for moderate pain 12/22/19 Active escitalopram (LEXAPRO) 5 MG tablet Take 1 tablet by mouth daily at 2 pm 01/28/20 Active pregabalin (LYRICA) 50 MG capsule Take 50 mg by mouth 2 times daily 12/01/19 Active insulin regular (HUMULIN R VIAL) 100 [...] (12/19/2020): Added automatically from request for surgery [id number] Pacemaker at end of battery life 12/19/2020 Overview (12/19/2020): Added automatically from request for surgery [id number] Thrombocytopenia 11/04/2020 Stage 3a chronic kidney disease 11/04/2020 Acute pain of left knee 08/01/2020 Pain in joint involving ankle and foot, left History of total left knee replacement 0 Hypotension 06/11/2020 Syncope 06/10/2020 Avulsion fracture of distal fibula 06/10/2020 Acute cystitis without hematuria 06/10/2020 Osteopenia, unspecified location 03/28/2019 Dyspnea 12/20/2018 Assessment & Plan (12/20/2018 8:21 PM EQUIPMENT TECHNICIAN): Associate with chest pain with no hypoxemia [...] statin Assessment & Plan (11/12/2016 3:19 PM EQUIPMENT TECHNICIAN): Weights going up Start lasix 20mg daily Assessment & Plan (10/26/2016 8:58 AM EQUIPMENT TECHNICIAN): Slight worsening SOB . Weights have increased since last visit. Will add lasix - 20mg daily for the next week. Recheck in 1 week. Continue EMILE , b- ava and statin 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 fibrillation with RVR 10/26/2016 Chest pain 10/26/2016 Atypical chest pain 09/17/2016 Assessment & Plan (12/20/2018 8:22 PM EQUIPMENT TECHNICIAN): Presenting with pain that started at 530 [...] morning. Assessment & Plan (09/22/2016 1:50 PM EQUIPMENT TECHNICIAN): Unclear etiology No symptoms currently Is scheduled for a stress test this week Will follow results Chronic pain syndrome 09/17/2016 Morbid obesity due to excess calories 09/17/2016 Cardiomyopathy, unspecified 09/17/2016 Assessment & Plan (12/20/2018 8:21 PM EQUIPMENT TECHNICIAN): Nonischemic in nature with last echo last year showing an EF of 35-40% Possible related to her current pain, will check echocardiogram tomorrow Cardiac pacemaker in situ 09/17/2016 Assessment & Plan (12/20/2018 8:23 PM EQUIPMENT TECHNICIAN): Chronic, managed by cardiology, placed initially for AV dissociation Continue outpatient management Elevated serum creatinine 09/17/2016 Assessment & Plan (09/22/2016 1:46 PM EQUIPMENT TECHNICIAN): Had elevated serum creatinine during the recent Hospitalization Recheck chemistries today Avoid Ibuprofen and Alleve OTC Hyperlipidemia LDL goal <100 07/23/2016 Assessment & Plan (09/22/2016 1:47 PM EQUIPMENT TECHNICIAN): Continue low intesity statin 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 Assessment & Plan (12/20/2018 8:22 PM EQUIPMENT TECHNICIAN): Poorly controlled taking insulin Continue home dosing, managed with sliding scale coverage Assessment & Plan (09/22/2016 1:36 PM EQUIPMENT TECHNICIAN): On NPH insulin 30 Unit BID and Sliding scale insulin -Novolog for meals Sugars well controlled Recheck A1c in 3 months Chronic low back pain 06/26/2016 Overview (09/22/2016): [facility] [place] On Hydrocodone Assessment & Plan (12/20/2018 8:23 PM EQUIPMENT TECHNICIAN): Managed by pain management, had back stimulator replaced recently, taking daily Percocet Continue Percocet as needed, continue outpatient management by pain management Assessment & Plan (09/22/2016 1:41 PM EQUIPMENT TECHNICIAN): Chronic low back pain since 1977 when she had a back injury s/p surgeries x5 on lumbar spine Has chronic pain from this Uses Lyrica -150mg BID Uses hydrocodone 2 Times a day daily - followed by [facility] in [place] since this month . 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 fibrillation 06/26/2016 Assessment & Plan (12/20/2018 8:21 PM EQUIPMENT TECHNICIAN): Currently rate controlled with pacemaker in place [...] her Assessment & Plan (11/12/2016 3:15 PM EQUIPMENT TECHNICIAN): Rate controlled since hospital discharge Continue amiodarone Lisinopril dose reduced to 2.5mg during the hospital stay Continue metoprolol -25mg BID Assessment & Plan (09/22/2016 1:39 PM EQUIPMENT TECHNICIAN): Rate controlled She has been taking 12.5 mg BID of metoprolol Increase to 25mg BID Continue coumadin for anticoagulation BP at goal Moderate recurrent major depression 06/26/2016 Assessment & Plan (03/11/2017 3:55 PM CDT): In remission Continue zoloft Recheck in 6 months Assessment & Plan (11/12/2016 3:17 PM EQUIPMENT TECHNICIAN): Has not been well controlled - Advise to start increasing dose to 150mg daily Assessment & Plan (10/26/2016 8:51 AM EQUIPMENT TECHNICIAN): Worsening symptoms Increase zoloft to 150mg daily Recheck in 3 months Assessment & Plan (09/22/2016 1:45 PM EQUIPMENT TECHNICIAN): Symptoms well controlled on sertraline Continue Zoloft -100mg daily Reviewed Phq-9 termite helper current use of anticoagulant therapy 0 06/26/2016 Assessment & Plan (12/20/2018 8:23 PM EQUIPMENT TECHNICIAN): Somewhat subtherapeutic with an INR of 1.86 [...] kidney disease, stage III (moderate) 6 07/12/2018 Immunizations Immunization Administration Dates Next Due COVID-19 12+ (MODERNA) [...] Sex Assigned at Female 01/14/2021 7:41 PM EQUIPMENT TECHNICIAN Legal Sex Female 6:11 PM CDT Gender Identity Female 01/14/2021 7:41 PM EQUIPMENT TECHNICIAN Sexual Orientation Straight 01/14/2021 7: 41 PM EQUIPMENT TECHNICIAN Last Filed Vital Signs Vital Sign Reading [...] Health Maintenance Due Date Last Done Comments EYE EXAM 03/23/2018 03/23/2017 HF ACTION PLAN 07/14/2020 07/14/2017, 10/26/2016 ZOSTER VACCINE (2 of 2) 04/20/2023 02/23/2023 MICROALBUMIN 05/28/2023 05/28/2022, 07/0 07/2021, 04/05/2020, Additional history exists ALT 07/09/2023 07/09/2022, 06/09, 05/28/2022, Additional history exists CBC 07/11/2023 07/11/2022, 09/0 12/2021, 07/09/2022, Additional history exists HEMOGLOBIN 07/30/2023 07/30/2022, 09/0 02/2022, 07/11/2022, Additional history exists DIABETIC FOOT EXAM 10/15/2023 10/15/2022, 0 12/11/2021, 12/11/2021, Additional history exists A1C 10/29/2023 04/29/2023, 01/06, 10/15/2022, Additional history exists BMP 10/29/2023 04/29/2023, 01/08, 10/15/2022, Additional history exists PHQ-9 10/29/2023 04/29/2023, 04/09, 01/18/2023, Additional history exists FALL RISK ASSESSMENT 01/19/2024 01/18/2023, 10/15/2022, 03/26/2022, Additional history exists MEDICARE ANNUAL WELLNESS VISIT 01/19/2024 01/18/2023 ANNUAL REVIEW OF HM ORDERS 04/29/202404/29, 05/28/2022, 05/16/2021 LIPID 04/29/2024 04/29/2023, 05/09, 05/16/2021, Additional history exists COVID-19 VACCINE ( season) 2025 08/27/2023, 10/15/2022, 10/18/2021, Additional history exists INFLUENZA VACCINE (#1) 2025 , 08/17/2022, 11/01/2021, Additional history exists ADVANCE CARE PLANNING 01/19/2028 01/18/2023, 022 DTAP/TDAP/TD VACCINE (2 - Td or Tdap) 05/16/2031 05/16/2021 DEXA 03/27/2034 03/27/2019 DEPRESSION ACTION PLAN Completed 11/17/2017, 2015 PNEUMOCOCCAL VACCINE 50+ YEARS Completed 11/17/2017, 08/10/2016 TSH W/FREE T4 REFLEX Completed 02/29/2020, 04/20/2019, 07/01/2017, Additional history exists URINALYSIS Completed 07/03/2022, 05/09, 06/10/2020, Additional history exists RSV VACCINE Completed 08/27/2023 HPV VACCINE (No Doses Required) Completed MENINGITIS VACCINE Aged Out No longer eligible based on patient's age to complete this topic Medical Devices Implanted Type Area Print Binding Worker Device Identifier Shelf Expiration Date Model / Serial / Lot Abandoned Lead Leads MEDTRONIC Description:(neurostimulator ) Known Abandoned Lead Ok For Mri Leads Description:Per Dr. Dario day, ok to scan with abandoned neurostimulator lead in back seen on xray. Always scan Low YESICA and ask patient to notify with any discomfort. sd Medtronic I* 4076 Capsurefix Novus [id number] Implanted: 011 (Quantity not on file) Leads [employer]IC INC 4076 CAPSUREFIX NOVUS / [id number] / Medtronic I* 4076 Capsurefix Novus [id number] Implanted: 011 (Quantity not on file) Leads [employer] INC 4076 CAPSUREFIX NOVUS / [id number] / Spine Stimulator Neurology device Pelvis MEDTRONIC [id number] / / Description:Intellis [id number] s chloe cord stimulator with surescan lead [id number] [email or web address] Pacemaker Ghazal Mri Xt Dr Implanted:Qty: 1 on 12/27/2020 at [facility] Pacemaker MEDTRONIC INC 04/21/2022 [id number] / [id number] / [id number] Explanted Type Area Print Binding Worker Device Identifier Shelf Expiration Date Model / Serial / Lot Medtronic I* Vedr01 Versa [id number] Implanted:03/16 (Quantity not on file) Explanted:12/27 by Jose Maria Domínguez MD (Quantity not on file) Pacemaker [employer] INC [id number] VERSA / [id number] / Procedures Procedure Name Priority Date/Time Associated [...] PHQ-9 DEPRESSION SCREENING ORDER Routine 06/04/2022 ALBUMIN AND CREATININE WITH RATIO RANDOM URINE QUANTITATIVE Routine 05/28/2022 6:04 PM CDT 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 (H) TSH WITH FREE T4 REFLEX Routine 02/29/2020 1:32 PM CDT 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 (H) Unintended weight loss DX BONE DENSITY Routine 03/27/2019 2:20 PM CDT Asymptomatic postmenopausal status EYE EXAM - HIM SCAN Routine 03/23/2017 from Last 3 Months or Most Recently [...] Greater than or equal to 220 mg/dL us Chu Cruz PA-C LAB - BLOOD ORDERABLES Final Result [facility] [address] [facility] (Main level, no room number) [place] [address], [facility] [phone] * (ABNORMAL) Hemoglobin A1c (04/29/2023 10:07 AM CDT) Hemoglobin A1C 7.3(H) 0.0 - 5.6 % 04/29/2023 10:20 AM CDT ER LABORATORY Comment: Normal <5.7% Prediabetes 5.7-6.4% Diabetes 6.5% or higher Note: Adopted from ADA consensus guidelines. Blood BLOOD SPECIMEN / Unknown Venipuncture / Unknown 04/29/2023 10:07 AM CDT 04/29/2023 10:07 AM CDT us Chu Cruz PA-C LAB - BLOOD ORDERABLES Final Result ER LAB[email or web address] [place] [facility] [address] [facility] Lab (no room number, 1st floor of clinic) [place] [address], [facility] [phone] * (ABNORMAL) Basic metabolic panel (Ca, Cl, CO2, Creat, Gluc, K, Na, BUN) (04/29/2023 10:07 AM CDT) Pathologist [facility] Sodium 135(L) 136 - 145 mmol/L 04/29/2023 [...] - BLOOD ORDERABLES Final Result PH [facility] [address] [facility] (Main level, no room number) [place] [address], [place] [phone] * Hemoglobin (07/30/2022 11:23 AM CDT) Hemoglobin 14.0 11.7 - 15.7 g/dL 07/30/2022 11:41 AM CDT ER LAB[facility]ATORY Blood STRUCTURE OF RIGHT UPPER LIMB / Unknown Venipuncture / Unknown 07/30/2022 11:23 AM CDT 07/30/2022 11:23 AM CDT Chu Cruz PA-C LAB - BLOOD ORDERABLES Final Result ER LAB[facility]AT[facility] [[email or web address] [place] [facility] [address] Lab (no room number, 1st floor of clinic) [place] [address], [facility] [phone] * (ABNORMAL) CBC with platelets (07/11/2022 4:40 AM CDT) WBC Count 5.5 4.0 - 11.0 10e3/uL [...] 4:40 AM CDT 07/11/2022 4:49 AM CDT Palmira Gil MD LAB - BLOOD ORDERAB LES Final Result [facility] [address] [facility] (Main level, no room number) [place] [address], [facility] [phone] * (ABNORMAL) Comprehensive metabolic panel (07/09/2022 7:37 PM CDT) Sodium 140 133 - 144 mmol/L 07/09/2022 8:15 PM CDT PH LAB[facility] Potassium (POCT) 5.2 3.4 - 5.3 mmol/L 07/09/2022 8:15 PM CDT PH LAB[facility] Chloride (POCT) 110(H) 94 - 109 mmol/L 07/09/2022 8:15 PM CDT PH [facility] Carbon Dioxide (CO2) (POCT) 27 20 - 32 mmol/L 07/09/2022 8:15 PM CDT PH [facility] Anion Gap (POCT) 3 3 - 14 mmol/L 07/09/2022 8:15 PM CDT PH [facility] Urea Nitrogen (POCT) 28 7 - 30 mg/dL 07/09/2022 8:15 PM CDT PH LAB[facility] Creatinine 1.50(H) 0.52 - 1.04 mg/dL 07/09/2022 8:15 PM CDT PH LAB[facility] Calcium 8.4(L) 8.5 - 10.1 mg/dL 07/09/2022 8:15 PM CDT PH [facility] Glucose (POCT) 178(H) 70 - 99 mg/dL 07/09/2022 8:15 PM CDT PH LAB[facility] Alkaline Phosphatase 99 40 - 150 U/L 07/09/2022 8:15 PM CDT PH [facility] AST 13 0 - 45 U/L 07/09/2022 8:15 PM CDT PH [facility] ALT 14 0 - 50 U/L 07/09/2022 8:15 PM CDT PH [facility] Protein Total 6.3(L) 6.8 - 8.8 g/dL 07/09/2022 8:15 PM CDT PH [facility] Albumin (POCT) 2.3(L) 3.4 - 5.0 g/dL 07/09/2022 8:15 PM CDT PH [facility] Bilirubin Total 0.3 0.2 - 1.3 mg/dL 07/09/2022 8:15 PM CDT PH LAB[facility] GFR Estimate 34(L) >60 mL/min/1.7 3m2 07/09/2022 8:15 PM CDT PH LAB[facility]ATORY Comment:Effective October 092020 eGFRcr in adults is calculated using the 2020 CKD-EPI creatinine equation which includes age and gender (Jose et al., NEJM, DOI: 10.1056/DDRMpe6810240) Blood STRUCTURE OF LEFT UPPER LIMB / Unknown VAD(CVC, PICC) / Unknown 07/09/2022 7:37 PM CDT 07/09/2022 7:52 PM CDT us Palmira Gil MD LAB - BLOOD ORDERAB LES Final Result PH [facility] [address] (Main level, no room number) [place] [address], [facility] [phone] * (ABNORMAL) UA with Microscopic reflex to [...] 07/03/2022 10:12 PM CDT PH LABORATORY Specific [place] Urine <=1.005 1.003 - 1.035 07/03/2022 10:12 [...] URINE ORDERABLES F inal Result PH [facility] [address] [facility] (Main level, no room number) [place] [address], [facility] [phone] * PHQ-9 DEPRESSION SCREENING ORDER (06/04/2022) PHQ9 SCORE 10 Narrative Elicia Sandoval Jyotsna - 06/04/2022 [facility] [...] 6:04 PM CDT 05/28/2022 6:04 PM CDT Chu Cruz PA-C LAB - URINE ORDERABLES Final Result PH [facility] [address] [facility] (Main level, no room number) [place] [address], [facility] [phone] * TSH with free T4 reflex (02/29/2020 1:32 PM CDT) TSH 0.68 0.40 - 4.00 mU/L 02/29/2020 2:[address] [facility] Blood specimen (specimen) 02/29/2020 1:32 PM CDT 02/29/2020 1:33 PM CDT Chu Cruz PA-C LAB - BLOOD ORDERABLES Final Result [facility] [address] [place] [address], [facility] [phone] * DX Hip/Pelvis/Spine (03/27/2019 2:20 PM CDT) [...] scanned with DXA technique performed using a [employer]-S[employer] scanner. DXA results are reported according to [...] scanned with DXA technique performed using a [employer] scanner. DXA results are reported according to [...] forearm, and bilateral hips. JOHNNY SOTO MD us Chu Cruz PA-C IMG DEXA ORDERABLES Fin al Result * Eye Exam - HIM Scan (03/23/2017) Ana Lilia Izaguirre - 03/23/2017 VITREORETINAL SURGERY - PROGRESS NOTE us Provider Outside OTHER Final Result from Last 3 Months or Most Recently Relevant to Health Maintenance Insurance [employer] [place] [address] [employer] Advance Directives For more information, please contact: [phone] * No CPR- Do NOT Intubate (Latest [...] with patie nt/legal decision maker Care Teams Fitness Trainer Relationship Specialty Start Date End Date Chu Cruz PA-C [address] [address] PCP - General Physician Supervisor Refractory Products 07/07/17 Minna Chawla RN [address] [address] Shirt Ironer Supervisor Diabetes Education 06/30/18 Minna Chawla RN [address] [address] Shirt Ironer Supervisor Diabetes Education 06/30/18 Chu Cruz PA-C [address] [address] Assigned PCP 11/14/17 Aruna Mart [address] [place] [address] Shirt Ironer Supervisor 01/16/22 Clem Maynard MD [address] [place] [address] Cardiovascular Disease 01/07/23
--- OUTSIDE RECORDS SUMMARY | 2025-08-22 00:16 | XMS_ITS | Encounter Summary ---
Author Organization [facility] Address [address] [place] [address]. [place] [address] Care Team Providers Care Optometry Assistant Name Role Phone Chu Cruz PA-C Primary Care Provider Minna Chawla RN Unavailable Unavailable Minna Chawla RN Unavailable Unavailable Chu Cruz PA-C Unavailable [phone] Aruna Mart Unavailable [phone] Clem Maynard MD Unavailable Unavailable Clem Maynard MD Unavailable Unavailable Encounter Details Date Type Department Care Team (Late st Contact Info) Description 06/13/2024 MyC Medical Advice [address] [place] [id number] Joanna Ascencio, [facility] Social History Tobacco Use Types Packs/Day Years [...] Sex Assigned at Female 01/14/2021 7:41 PM COKE PRODUCTION HEATER Legal Sex Female 6:11 PM CDT Gender Identity Female 01/14/2021 7:41 PM COKE PRODUCTION HEATER Sexual Orientation Straight 01/14/2021 7: 41 PM COKE PRODUCTION HEATER documented as of this encounter Plan of Treatment Not on file documented as of this encounter Visit Diagnoses Not on filedocumented in this encounter Additional Health Concerns Assessment Noted Time PHQ-9 Depression Total Score: 10 023 10:36 AM CDT documented as of this encounter Care Teams Optometry Assistant Relationship Specialty Start Date End Date Chu Cruz PA-C [address] [address] PCP - General Physician Tunnel Kiln Operator 07/07/17 Minna Chawla RN [address] [address] Dog Day Care Attendant Diabetes Education 06/30/18 Minna Chawla RN [address] [address] Dog Day Care Attendant Diabetes Education 06/30/18 Chu Cruz PA-C [address] [address] Assigned PCP 11/14/17 Aruna Mart [address] [place] [address] Dog Day Care Attendant 01/16/22 Clem Maynard MD [address] [place] [address] Cardiovascular Disease 01/07/23 Clem Maynard MD [address] [place] [address] Assigned Heart and Vascular Provider 01/16/23 07/30/24 documented as of this encounter
--- OUTSIDE RECORDS SUMMARY | 2025-08-22 00:17 | XMS_ITS | Encounter Summary ---
Author Organization [facility] Address Formerly [facility] [place] [address] Care Team Providers Care Senior Partner Name Role Phone Chu Cruz PA-C Primary Care Provider Minna Chawla RN Unavailable Unavailable Minna Chawla RN Unavailable Unavailable Chu Cruz PA-C Unavailable [phone] Luis Miguel Woodson MD Unavailable Unavailable Daisy Mejia PROGRAMS DIRECTOR Unavailable Aruna Mart Unavailable [phone] Chris Ricketts DPM Unavailable Chris Ricketts DPM Unavailable [phone] Clem Maynard MD Unavailable Unavailable Clem Maynard MD Unavailable Unavailable Encounter Details Date Type Department Care Team (Late st Contact Info) Description 03/04/2022 [facility] Medical Advice [address] [address] Stoney Mckinney, RN Social History [...] Sex Assigned at Female 01/14/2021 7:41 PM DRAFTER PLUMBING Legal Sex Female 6:11 PM CDT Gender Identity Female 01/14/2021 7:41 PM DRAFTER PLUMBING Sexual Orientation Straight 01/14/2021 7: 41 PM DRAFTER PLUMBING COVID-19 Exposure Response Date Recorded In the [...] as of this encounter Care Teams Senior Partner Relationship Specialty Start Date End Date Chu Cruz PA-C [address] [address] PCP - General Physician Pin Drafting Machine Operator 07/07/17 Minna Chawla RN [address] [address] Mask Inspector Diabetes Education 06/30/18 Minna Chawla RN [address] [address] Mask Inspector Diabetes Education 06/30/18 Chu Cruz PA-C [address] [address] Assigned PCP 11/14/17 Luis Miguel Woodson MD Assigned Heart and Vascular Provider 08/30/20 06/26/22 Daisy Mejia NP [address] [place] [address] Assigned Neuroscience Provider 09/07/21 03/05/23 Aruna Mart [address] [facility] [place] [place] [address] Mask Inspector 01/16/22 Chris Ricketts DPM [address] [place] [address] Assigned Musculoskeletal Provider 01/11/22 12/11/22 Chris Ricketts DPM [address] [facility] [place] [address] Assigned Surgical Provider 12/12/22 02/28/24 Clem Maynard MD [address] [place] [address] Cardiovascular Disease 01/07/23 Clem Maynard MD [address] [place] [address] Assigned Heart and Vascular Provider 01/16/23 07/30/24 documented as of this encounter
--- OUTSIDE RECORDS SUMMARY | 2025-08-22 00:17 | XMS_ITS | Encounter Summary ---
Author Organization [facility] Address [facility] [place] [address] Care Team Providers Care Wick Tender Name Role Phone Chu Cruz PA-C Primary Care Provider Minna Chawla RN Unavailable Unavailable Minna Chawla RN Unavailable Unavailable Chu Cruz PA-C Unavailable [phone] Daisy Mejia CONSULAR OFFICER Unavailable [phone] Aruna Mart Unavailable [phone] Chris Ricketts DPM Unavailable Chris Ricketts DPM Unavailable Clem Maynard MD Unavailable Unavailable Clem Maynard MD Unavailable Unavailable Encounter Details Date Type Department Care Team (Late st Contact Info) Description 07/24/2022 MyC Medical Advice [address] [place] [address] Gabbie Shankar, MIKE Social History Tobacco Use Types Packs/Day Years Used Date Smoking Tobacco: Former Smokeless Tobacco: Never Comments:only 6 months use Alcohol Use Standard Drinks/Week Comments Yes 0 (1 standard drink = 0.6 oz pur e alcohol) rarely PHQ-2 Answer Date Recorded PHQ-2 Score 1 03/26/2022 Comments No Sex and Gender Information Value Date Recorded Sex Assigned at Female 01/14/2021 7:41 PM SEASONER HAND Legal Sex Female 6:11 PM CDT Gender Identity Female 01/14/2021 7:41 PM SEASONER HAND Sexual Orientation Straight 01/14/2021 7: 41 PM SEASONER HAND COVID-19 Exposure Response Date Recorded In [...] documented as of this encounter Care Teams Wick Tender Relationship Specialty Start Date End Date Chu Cruz PA-C [address] [address] PCP - General Physician Twisting Frame Changer 07/07/17 Minna Chawla RN [address] [address] Clod Puller Diabetes Education 06/30/18 Minna Chawla RN [address] [address] Clod Puller Diabetes Education 06/30/18 Chu Cruz PA-C [address] [place] [address] Assigned PCP 11/14/17 Daisy Mejia NP [address] [address] Assigned Neuroscience Provider 09/07/21 03/05/23 Aruna Mart [address] [place] [address] Clod Puller 01/16/22 Chris Ricketts DPM [address] [facility] [place] [address] Assigned Musculoskeletal Provider 01/11/22 12/11/22 Chris Ricketts DPM [address] [facility] [place] [address] Assigned Surgical Provider 12/12/22 02/28/24 Clem Maynard MD [address] [place] [address] Cardiovascular Disease 01/07/23 Clem Maynard MD [address] [facility] [place] [address] Assigned Heart and Vascular Provider 01/16/23 07/30/24 documented as of this encounter
--- OUTSIDE RECORDS SUMMARY | 2025-08-22 00:17 | XMS_ITS | Encounter Summary ---
Author Organization [facility] Address [address] [place] [address] Care Team Providers Care Meat Press Operator Name Role Phone Chu Cruz PA-C Primary Care Provider Minna Chawla RN Unavailable Unavailable Minna Chawla RN Unavailable Unavailable Chu Cruz PA-C Unavailable Luis Miguel Woodson MD Unavailable Unavailable Daisy Mejia BODYBUILDER Unavailable Aruna Mart Unavailable Chris Ricketts DPM Unavailable Chris Ricketts DPM Unavailable [phone] Clem Maynard MD Unavailable Unavailable Clem Maynard MD Unavailable Unavailable Encounter Details Date Type Department Care Team (Late st Contact Info) Description 06/01/2022 [facility] [address] [facility] [place] [address] Chu Cruz PA-C [address] [place] [address] Social History Tobacco Use Types Packs/Day Years Used Date Smoking Tobacco: Former Smokeless Tobacco: Never Comments:only 6 months use Alcohol Use Standard Drinks/Week Comments Yes 0 (1 standard drink = 0.6 oz pur e alcohol) rarely PHQ-2 Answer Date Recorded PHQ-2 Score 1 03/26/2022 Comments No Sex and Gender Information Value Date Recorded Sex Assigned at Female 01/14/2021 7:41 PM JOB ORDER CLERK Legal Sex Female 6:11 PM CDT Gender Identity Female 01/14/2021 7:41 PM JOB ORDER CLERK Sexual Orientation Straight 01/14/2021 7: 41 PM JOB ORDER CLERK COVID-19 Exposure Response Date Recorded In the [...] documented as of this encounter Care Teams Meat Press Operator Relationship Specialty Start Date End Date Chu Cruz PA-C [address] [address] PCP - General Physician Treatment Counselor 07/07/17 Minna Chawla RN [address] [address] Academic Assistant Diabetes Education 06/30/18 Minna Chawla RN [address] [address] Academic Assistant Diabetes Education 06/30/18 Chu Cruz PA-C [address] [address] Assigned PCP 11/14/17 Luis Miguel Woodson MD Assigned Heart and Vascular Provider 08/30/20 06/26/22 Daisy Mejia NP [address] [place] [address] Assigned Neuroscience Provider 09/07/21 03/05/23 Aruna Mart [address] [facility] [place] [place] [place] [address] Academic Assistant 01/16/22 Chris Ricketts DPM [address] [facility] [place] [address] Assigned Musculoskeletal Provider 01/11/22 12/11/22 Chris Ricketts DPM [address] [facility] [place] [address] Assigned Surgical Provider 12/12/22 02/28/24 Clem Maynard MD [address] [facility] [address] Cardiovascular Disease 01/07/23 Clem Maynard MD [address] [facility] [place] [address] Assigned Heart and Vascular Provider 01/16/23 07/30/24 documented as of this encounter
--- OUTSIDE RECORDS SUMMARY | 2025-08-22 00:17 | XMS_ITS | Clinical Summary ---
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 Active apixaban (Eliquis) 2.5 mg tablet Take 2.5 mg by mouth two times daily. Active metoprolol tartrate as half tablet Take 12.5 mg by mouth two times daily. Active methocarbamoL 500 mg tablet Take 250 mg by mouth two times daily. Active omeprazole 20 mg tablet Take 40 mg by mouth once daily. Active liraglutide (Victoza 2-Wade) 0.6 mg/0.1 mL (18 mg/3 mL) subcutaneous pen Inject 1.2 mg subcutaneous once daily. Active nystatin 100,000 unit/gram cream Apply topically to affected area(s) 2 times daily if needed (rash). Active acetaminophen (TYLENOL EXTRA STRGTH) 500 mg tabletIndication s:Acute postoperative pain,Chronic bilateral low back pain without sciatica Take 2 Tablets (1,000 mg) by mouth three times daily. Max acetaminophen dose: 4000mg in 24 hrs. Active acetaminophen (TYLENOL EXTRA STRGTH) 500 mg tabletIndication s:pain Take 1 Tablet (500 mg) by mouth at bedtime if needed for Pain (Daily PRN for pain (especially overnight). This is a PRN dose to be available for breakthrough pain in addition to patient's scheduled doses.). Max acetaminophen dose: 4000mg in 24 hrs. Active lidocaine 4 % topical patchIndications :Closed fracture of right hip, initial encounter (HC),Acute postoperative pain,Chronic bilateral low back pain without sciatica Apply 1-2 Patches on dry, clean, hairless skin once daily if needed for Pain. Apply to most painful area for 12hr, then remove for 12 hr, etc. Apply to R hip / back / per patient preference. Use 1 vs 2 patches to cover desired area. OK to cut in half if needed. Only apply to intact skin. Do NOT apply over (or within 2 of) rash, open skin, wound, incision, etc. Do not apply heating pad over medication patches. Active methocarbamoL 500 mg tabletIndication s:Closed fracture of right hip, initial encounter (HC),Acute postoperative pain,Muscle spasm Take 0.5 Tablets (250 mg) by mouth 3 times daily if needed for Muscle Spasm (for muscle spasms only). Hold for sedation, confusion. Max of 3x/day (midnight-midnig ht). At least 6 hrs between doses. Active sennosides-docus ate (SENOKOT S) (8.6-50 mg) tabletIndication s:Opioid-induced constipation Take 1-4 Tablets by mouth two times daily. While on opioids: 2 tabs x2 doses, continue if stooling. If no BM: 3 tabs x2 doses. If no BM: 4 tabs. If > 2 BMs in 24 hrs, reduce to 1 tab. Hold for loose stools. Active Lantus Solostar U-100 Insulin 100 unit/mL (3 mL) penIndications:T ype 2 diabetes mellitus without complication in remission Inject 16 units subcutaneous before bedtime. Product desired: LANTUS SOLOSTAR Active insulin aspart (U-100) (NOVOLOG FLEXPEN) 100 unit/mL (3 mL) penIndications:T ype 2 diabetes mellitus without complication in remission Inject 0-6 units subcutaneous three times daily before meals. Give subcutaneous TID with meals per blood glucose (mg/dL). Don't give corrective dose for PRN, post-prandial or nocturnal glucose checks unless ordered. Blood Glucose.....Dose <70............. ..See Hypoglycemia Protocol 70-149.......... No insulin, give prandial insulin, if ordered 150-199........1 unit 200-249........2 units 250-299........3 units 300-349........4 units 350-399........5 units 400 or greater....6 units & call 025 Active bumetanide (BUMEX) 2 mg tabletIndication s: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 fibrillation (HC) Take 1 Tablet (2 mg) by mouth once daily in the morning. Take additional 2 mg by mouth in the afternoon until patient is off supplemental oxygen. 025 Active HYDROcodone-acet aminophen (5-325 mg/tablet)Indica tions:Type 2 diabetes mellitus without complication in remission Take 0.5 Tablets by mouth 3 times daily if needed for Pain (severe pain not managed with other medications). Max acetaminophen dose: 4000 mg in 24 hrs. 10 Tablet 025 Active omeprazole 20 mg Delayed-Release capsule Take 40 mg by mouth two times daily. 2024 Discontinued(P harmacist change per medication history (E-cancel not sent)) empagliflozin (Jardiance) 10 mg tablet Take 10 mg by mouth once daily. 2024 Discontinued(P harmacist change per medication history (E-cancel not sent)) Lantus Solostar U-100 Insulin 100 unit/mL (3 mL) pen Inject 7 units subcutaneous before bedtime. Product desired: LANTUS SOLOSTAR 2024 Discontinued escitalopram oxalate (Lexapro) 5 mg tablet Take 5 mg by mouth once daily. 2024 Discontinued(P harmacist change per medication history (E-cancel not sent)) meclizine 12.5 mg tablet Take 12.5 mg by mouth 3 times daily if needed. 2024 Discontinued(* IP Discontinued) nystatin 100,000 unit/gram cream Apply topically to affected area(s) two times daily. 2024 Discontinued(P harmacist change per medication history (E-cancel not sent)) sennosides-docus ate (Senna-S) (8.6-50 mg) tablet Take 1 Tablet by mouth 2 times daily if needed for Constipation. 2024 Discontinued(P harmacist change per medication history (E-cancel not sent)) insulin aspart (U-100) (NovoLOG Flexpen U-100 Insulin) 100 unit/mL (3 mL) pen Inject 6 units subcutaneous three times daily before meals. 2024 Discontinued(* IP Discontinued) lidocaine (Lidocaine Pain Relief) 4 % topical patch Apply 1 Patch on dry, clean, hairless skin once daily. Apply to intact skin to cover most painful area for max 12hr per 24hr period. 2024 Discontinued(P harmacist change per medication history (E-cancel not sent)) amLODIPine 5 mg tabletIndication s:Hypertension Take 1 Tablet (5 mg) by mouth once daily. 2024 Discontinued(* IP Discontinued) pregabalin (Lyrica) 50 mg capsuleIndicatio ns:Chronic bilateral low back pain without sciatica Take 1 Capsule (50 mg) by mouth two times daily. 60 Capsule 2024 Discontinued(P harmacist change per medication history (E-cancel not sent)) HYDROcodone-acet aminophen (5-325 mg/tablet)Indica tions:Chronic bilateral low back pain without sciatica Take 1 Tablet by mouth 2 times daily if needed for Pain. Max acetaminophen dose: 4000 mg in 24 hrs. 30 Tablet 2024 Discontinued(* IP Discontinued) melatonin 3 mg tabletIndication s:Chronic bilateral low back pain without sciatica Take 1 Tablet (3 mg) by mouth at bedtime if needed, may repeat once for Sleep. 2024 Discontinued(P harmacist change per medication history (E-cancel not sent)) dapagliflozin propanediol (Farxiga) 5 mg tablet Take 5 mg by mouth once daily. 2024 Discontinued(* IP Discontinued) buprenorphine 5 mcg/hr (BUTRANS) 5 mcg/hour transdermal patch Apply 1 Patch on dry, clean, hairless skin once weekly. 2024 Discontinued(* IP Discontinued) pramipexole (MIRAPEX) 0.25 mg tablet Take 0.25 mg by mouth at bedtime. 2024 Discontinued(* IP Discontinued) bumetanide (BUMEX) 2 mg tablet Take 2 mg by mouth two times daily. 2024 Discontinued lidocaine 4 % topical patch Apply on dry, clean, hairless skin two times daily. 2024 Discontinued(* IP Discontinued) potassium chloride (KLOR-CON M20) 20 mEq extended-release tablet (part/cryst) Take 20 mEq by mouth two times daily with meals. 2024 Discontinued(* IP Discontinued) pregabalin (Lyrica) 50 mg capsule Take 50 mg by mouth three times daily. 2024 Discontinued(* IP Discontinued) acetaminophen (Tylenol Extra Strength) 500 mg tablet Take 1,000 mg by mouth two times daily. 2024 Discontinued(* IP Discontinued) acetaminophen (TYLENOL EXTRA STRGTH) 500 mg tabletIndication s:Closed fracture of right hip, initial encounter (HC) Take 2 Tablets (1,000 mg) by mouth 3 times daily if needed for Pain. Max acetaminophen dose: 4000mg in 24 hrs. 60 Tablet 2024 Discontinued(* IP Discontinued) HYDROcodone-acet aminophen (5-325 mg/tablet)Indica tions:Type 2 diabetes mellitus without complication in remission Take 0.5 Tablets by mouth 3 times daily if needed for Pain (severe pain not managed with other medications). Max acetaminophen dose: 4000 mg in 24 hrs. 20 Tablet 2024 Discontinued bumetanide (BUMEX) 2 mg tabletIndication s: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 fibrillation (HC) Take 1 Tablet (2 mg) by mouth once daily in the morning. 2024 Discontinued Active Problems Problem Noted Date Diagnosed Date S/p Right hip gamma nailing DOS 08/06/25 Dr. 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 [place] [facility] [place] Vial Gauger and model: Medtronic Versa Pacemaker. 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 0 06/26/2016 Overview (10/31/2021): Last Assessment & Plan: Somewhat subtherapeutic with an INR of 1.86 Pharmacy to manage Moderate recurrent major depression 06/26/2016 Overview (10/31/2021): Last Assessment & Plan: In remission Continue zoloft Recheck in 6 months Compression fracture of thor acic vertebra with routine healing Resolved Problems Problem Noted Date Diagnosed Date Resolved Date Obesity (BMI 30.0-34.9) 10/31/202111/2024 Encounters Date Type Department Care Team Description 08/21/2025 Telephone [facility] [address] [place] [address] Clarice Arriaga PA MEDICAL TRANSPORT (NO WAY TO MAKE APPOINTMENT ) 08/16/2025 Lab Requisition [facility] [phone] Vera Arora NP 08/06/2025 11:28 AM CDT Anesthesia Event [facility] [address] [place] [address] Carmela Cole MD Overgaard, Shawn M, CRNA 08/06/2025 10:30 AM CDT - 08/06/2025 12:24 PM CDT Surgery [facility] [address] [place] [address] Daniel James MD RIGHT HIP GAMMA NAILING 08/05/2025 9:14 PM CDT - 08/13/2025 11:20 AM CDT Hospital Encounter [facility] [address] [place] [address] Kristi Nair [facility], MD Emma Mcgarry, MD Sayda Paez, MD Esthela Gomez, Radha Benites MD Closed fracture of right hip, initial encounter (HC) (Primary Dx); Acute postoperative pain; Chronic bilateral low back pain without sciatica; Muscle spasm; Opioid-induced constipation; Type 2 diabetes mellitus without complication in remission; 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 fibrillation (HC) Discharge Disposition: Halfway Facility 08/05/2025 11:55 AM CDT - 08/05/2025 8:[address] [facility] [address] [place] [address] JoaquinEverett aguilar MD Ellingson, Farshad Florez MD Closed fracture of right hip, initial encounter (HC) (Primary Dx); On anticoagulant therapy; Closed fracture of ramus of left pubis, initial encounter (HC); Hyperkalemia; Fall, initial encounter Discharge Disposition: Crit Acc Hosp w Planned Readmission 08/05/2025 Travel 07/31/2025 Lab Requisition [facility] [phone] Unknown, Doctor 07/30/2025 Transcribe Orders [facility] [place] [phone] Demetrius Bonilla PA 05/29/2025 Lab Requisition [facility] [phone] Unknown, Doctor from Last 3 Months Immunizations Immunization Administration Dates Next Due Influenza Virus, Unspecified 07/09/2015,09/24/20 14,11/08/2011 Influenza, High-dose Inactivated 08/24/2024,08/08,08/10/2016 Influenza, High-dose Quadriv alent Inactivated 08/27/2023,08/17/2022 Influenza, Inactivated AIIV4 (Age 65+ Years) Preserv Free 11/01/2021 Pneumococcal Conj 20-valent (Prevnar 20) 025 Pneumococcal Poly,23-Valent (Pneumovax) 11/17/19 18 Pneumococcal conj 13-Valent (Prevnar 13) 016 RSV, Recombinant ADJ Reconst ituted (Arexvy 120MCG/0.5mL) 08/27/2023 Tdap 05/16/2021 Zoster (Shingrix-RZV, recombinant) 02/23/2023 Social History Tobacco Use Types Packs/Day Years Used Date Smoking Tobacco: Never Smokeless Tobacco: Never Alcohol Use Standard Drinks/Week Comments Yes 0 (1 standard drink = 0.6 oz pur e alcohol) rare Social Connections Answer Date Recorded Do you often feel lonely or isolated from those around you? 0 08/05/2025 Financial Resource Strain Answer Date R ecorded Difficulty of Paying Living Expenses 3 08/05/2025 Difficulty of Paying Living Expenses Not on file 08/05/2025 Food Insecurity Answer Date Recorded Do you worry your food will run out before you are able to buy more? 1 08/05/2025 Transportation Needs Answer Date Record ed Does lack of transportation keep you from medica l appointments? 1 08/05/2025 Does lack of transportation keep you from work, meetings or getting things that you need? 1 08/05/2025 Housing Stability Answer Date Recorded What is your housing situation today? 1 08/05/2025 Interpersonal Safety Answer Date Record ed Are you being hit, kicked, p ushed or yelled at (see row info)? No 08/06/2025 Interpersonal Safety Abuse 12 - 18 Not on file 08/06/2025 Interpersonal Safety Ambulatory Vulnerability No t on file 08/06/2025 Utilities Answer Date Recorded Do you have trouble paying f or utilities (for example, heat, electricity, water, phone)? 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 Gender Identity Female 08/05/2025 12:13 PM CDT Sexual Orientation Straight 08/05/2025 12 :13 PM CDT Obstetrics History Last Filed Vital Signs Vital Sign Reading Time Taken Comments Blood Pressure 133/51 08/13/2025 8:25 AM CDT Pulse 61 08/13/2025 8:25 AM CDT Temperature 36.7 C (98.1 F) 08/13/2025 8:25 AM CDT Respiratory Rate 20 08/13/2025 8:25 AM CDT Oxygen Saturation 94% 08/13/2025 8:42 AM CDT Inhaled Oxygen Concentration - - Weight 112 kg (246 lb 14.6 oz) 08/13/2025 5:56 A M CDT Height 167.6 cm (5' 6) 08/05/2025 11:59 AM CDT Body Mass Index 39.85 08/05/2025 11:59 AM CDT Plan of Treatment Health Maintenance Due Date Last Done Comments Depression screening for age 12+ 1948 DEXA/DXA scan for age 65+ 2001 Medicare Wellness for age 65+ 2001 BMI (ht and wt on same day) for age 18+ 01/18/2018 01/18/2017 Zoster (shingles) series for age 50+ (2 of 2) 04/20/2023 02/23/2023 COVID-19 vaccine series ( season) 2025 10/25/2024, 08/27/2023, 10/15/2022, Additional history exists Influenza Vaccine (#1) 2025 , 11/01/2021, 08/23/2019, Additional history exists Tetanus booster 05/16/2031 05/16/2021 RSV vaccine for adults or Completed 08/27/2023 Pneumococcal series for age 50+ Completed 12/29/2024, 11/17/2017, 08/10/2016 Hepatitis B series for 19+ Aged Out N o longer eligible based on patient's age to complete this topic Medical Devices Implanted Type Area Vial Gauger Device Identifier Shelf Expiration Date Model / Serial / Lot [id number] - [id number] Implanted:Qty: 1 on 01/26/2017 by Paco Dobbins MD at [facility] [id number] / [id number] / Description:PROGRAMMABLE TOLU ROSTIMULATOR Lead Spinal 65cm 5-6-5 Specify Surescan Mri - [id number] Implanted:Qty: 1 on 09/26/2018 by Emigdio Cantu MD at [facility] N/A: Lumbar Vertebrae Medtronic Pain Therapy 05/02/2022 [id number] / / [id number] Description:NO STICKER JM Stimulator Spinal Intellis Mri - [id number] Implanted:Qty: 1 on 09/26/2018 by Emigdio Cantu MD at [facility] N/A: Lumbar Vertebrae Medtronic Pain Therapy 06/21/2019 [id number]# / [id number] / Description:NO STICKER SHELLI Envlp Neuro Tyrx Absorb Antibacterial - [id number] Implanted:Qty: 1 on 09/26/2018 by Emigdio Cantu MD at [facility] N/A: Lumbar Vertebrae Medtronic 11/07/2018 [id number] / / [id number] Description:NO STICKER JM Screw Bone 5x40mm T2 Lock Alpha - [id number] Implanted:Qty: 1 on 08/06/2025 by Daniel James MD at [facility] Right: Hip David [employer] 10/07/2034 [id number] / / [id number] Screw Bone 5x52.5mm T2 Lock Alpha - [id number] Implanted:Qty: 1 on 08/06/2025 by Daniel James MD at [facility] Right: Hip David [employer] 05/07/2035 [id number] / / [id number] Nail Hip [id number] 125deg Lng Rt Gamma4 - [id number] Implanted:Qty: 1 on 08/06/2025 by Daniel James MD at [facility] Right: Hip Foster [employer] 04/07/2035 [id number] / / [id number] Screw Lag Bone 10.5x95mm Gamma4 - [id number] Implanted:Qty: 1 on 08/06/2025 by Daniel James MD at [facility] Right: Hip [employer] 03/07/2035 [id number] S / / [id number] Explanted Type Area Vial Gauger Device Identifier Shelf Expiration Date Model / Serial / Lot K-Wire [id number] [employer] - [id number] Explanted:Qty: 1 on 08/06/2025 at [facility] Right: Hip [employer] 04/07/2030 [id number] / / [id number] K-Wire 8t380tz T2 Alpha - [id number] Explanted:Qty: 1 on 08/06/2025 at [facility] Right: Hip David [employer] 05/07/2035 [id number] / / [id number] Pin 3.2/3.2f004lb Precision Tapered - [id number] Explanted:Qty: 1 on 08/06/2025 at [facility] Right: Hip Foster [employer] 05/07/2035 [id number] / / [id number] Procedures Procedure Name Priority Date/Time Associated Diagnosis Comments GLUCOSE METER Timed 08/13/2025 6:52 AM CDT GLUCOSE METER Timed 08/12/2025 9:53 PM CDT GLUCOSE METER Timed 08/12/2025 4:55 PM CDT GLUCOSE METER Timed 08/12/2025 11:17 AM CDT GLUCOSE METER Timed 08/12/2025 6:41 AM CDT GLUCOSE METER Timed 08/11/2025 9:11 PM CDT GLUCOSE METER Timed 08/11/2025 5:37 PM CDT GLUCOSE METER Timed 08/11/2025 1:10 PM CDT PLATELET COUNT Early AM 08/11/2025 9:54 AM CDT HEMOGLOBIN Early AM 08/11/2025 9:54 AM CDT BASIC METABOLIC PANEL Early AM 08/11/2025 9:54 AM CDT GLUCOSE METER Timed 08/11/2025 6:49 AM CDT GLUCOSE METER Timed 08/10/2025 9:21 PM CDT GLUCOSE METER Timed 08/10/2025 5:31 PM CDT GLUCOSE METER Timed 08/10/2025 12:09 PM CDT PLATELET ESTIMATE Timed 08/10/2025 10:42 AM CDT PLATELET COUNT Early AM 08/10/2025 10:42 AM CDT HEMOGLOBIN Early AM 08/10/2025 10:42 AM CDT BASIC METABOLIC PANEL Early AM 08/10/2025 10:42 AM CDT GLUCOSE METER Timed 08/10/2025 6:40 AM CDT GLUCOSE METER Timed 08/09/2025 9:25 PM CDT GLUCOSE METER Timed 08/09/2025 4:43 PM CDT GLUCOSE METER Timed 08/09/2025 11:13 AM CDT URINALYSIS MICROSCOPIC Timed 08/09/2025 10:13 AM CDT UA W/ SEDIMENT EXAM REFLEXED PER CRITERIA Today 08/09/2025 10:13 AM CDT GLUCOSE METER Timed 08/09/2025 6:51 AM CDT PLATELET COUNT Early AM 08/09/2025 6:04 AM CDT BASIC METABOLIC PANEL Early AM 08/09/2025 6:04 AM CDT HEMOGLOBIN Early AM 08/09/2025 6:04 AM CDT GLUCOSE METER Timed 08/08/2025 9:23 PM CDT GLUCOSE METER Timed 08/08/2025 5:21 PM CDT GLUCOSE METER Timed 08/08/2025 11:26 AM CDT GLUCOSE METER Timed 08/08/2025 6:44 AM CDT PLATELET COUNT Early AM 08/08/2025 6:34 AM CDT CREATININE Early AM 08/08/2025 6:34 AM CDT POTASSIUM Early AM 08/08/2025 6:34 AM CDT SODIUM Early AM 08/08/2025 6:34 AM CDT HEMOGLOBIN Early AM 08/08/2025 6:34 AM CDT GLUCOSE METER Timed 08/07/2025 9:23 PM CDT GLUCOSE METER Timed 08/07/2025 5:27 PM CDT GLUCOSE METER Timed 08/07/2025 11:44 AM CDT GLUCOSE METER Timed 08/07/2025 8:21 AM CDT CREATININE Early AM 08/07/2025 7:08 AM CDT POTASSIUM Early AM 08/07/2025 7:08 AM CDT SODIUM Early AM 08/07/2025 7:08 AM CDT HEMOGLOBIN Early AM 08/07/2025 7:08 AM CDT GLUCOSE METER Timed 08/06/2025 10:08 PM CDT TRANSFUSE RBC (NURSE COMMUNICATION ORDER) STAT 08/06/2025 4:45 PM CDT RED BLOOD CELLS EA UNIT STAT 08/06/2025 4:15 PM CDT RBC W/O TYPE & SCREEN STAT 08/06/2025 4:10 PM CDT EKG 12 LEAD STAT 08/06/2025 3:16 PM CDT PHOSPHORUS STAT 08/06/2025 3:16 PM CDT MAGNESIUM STAT 08/06/2025 3:16 PM CDT BASIC METABOLIC PANEL STAT 08/06/2025 3:16 PM CDT POTASSIUM Timed 08/06/2025 3:16 PM CDT CALCIUM IONIZED HOSPITAL DRAW ONLY STAT 08/06/2025 3:15 PM CDT CBC W PLT NO DIFF STAT 08/06/2025 3:15 PM CDT ARTERIAL BLOOD GAS STAT 08/06/2025 3:15 PM CDT GLUCOSE METER Timed 08/06/2025 3:11 PM CDT ARTERIAL LINE Routine 08/06/2025 2:13 PM CDT ARTERIAL LINE Routine 08/06/2025 2:13 PM CDT ARTERIAL LINE Routine 08/06/2025 2:13 PM CDT ARTERIAL LINE Routine 08/06/2025 2:13 PM CDT ARTERIAL LINE Routine 08/06/2025 2:13 PM CDT XR C-ARM EQUAL OR GREATER 2 HR Routine 08/06/2025 1:20 PM CDT ENDOTRACHEAL TUBE Routine 08/06/2025 12:00 PM CDT ENDOTRACHEAL TUBE Routine 08/06/2025 12:00 PM CDT ENDOTRACHEAL TUBE Routine 08/06/2025 12:00 PM CDT OPEN REDUCTION INTERNAL FIXATION HIP Class D Urgent: Inpt requiring surgery 08/06/2025 11:10 AM CDT Right Intertrochanteric Femur Fracture Case Notes GENERALSUPINE ON HANA TABLEC-ARMSTRYKER GAMMA 4 SET/T2 ALPHA BASIC/INHOUSE TYPE & SCREEN STAT 08/06/2025 10:14 AM CDT GLUCOSE METER Timed 08/06/2025 10:10 AM CDT PACER ESTHER DUAL CHAMBER WO REPROG Routine 08/06/2025 9:40 AM CDT XR FEMUR 2 VIEWS RIGHT STAT 08/06/2025 9:13 AM CDT GLUCOSE METER Timed 08/06/2025 7:39 AM CDT BASIC METABOLIC PANEL Early AM 08/06/2025 6:02 AM CDT HEMOGLOBIN Early AM 08/06/2025 6:02 AM CDT PROTIME-INR Early AM 08/06/2025 6:02 AM CDT HEMOGLOBIN A1C MONITORING (POCT) Today 08/06/2025 1:21 AM CDT BASIC METABOLIC PANEL Timed 08/05/2025 10:55 PM CDT GLUCOSE METER Routine 08/05/2025 6:[address] PELVIS MUSCULOSKELETAL AND RIGHT HIP WO STAT 08/05/2025 4:16 PM CDT EKG 12 LEAD STAT 08/05/2025 3:[address] SPINE CERVICAL WO STAT 08/05/2025 3:[address] HEAD BRAIN WO STAT 08/05/2025 3:16 PM CDT XR HIP 2 OR 3 VIEWS W PELVIS RIGHT STAT 08/05/2025 3:11 PM CDT XR KNEE 2 VIEWS RIGHT STAT 08/05/2025 3:11 PM CDT XR SHOULDER 2 VIEWS RIGHT STAT 08/05/2025 3:11 PM CDT PLATELET ESTIMATE STAT 08/05/2025 12:13 PM CDT RED CELL MORPHOLOGY STAT 08/05/2025 12:13 PM CDT BASIC METABOLIC PANEL STAT 08/05/2025 12:13 PM CDT CBC W PLT NO DIFF STAT 08/05/2025 12:13 PM CDT SCAN-CARDIAC STRIP 08/05/2025 12:00 AM CDT PLATELET ESTIMATE Routine 05/30/2025 7:05 AM CDT Acute kidney failure, unspecified Heart failure, unspecified (HC) Chronic kidney disease, stage 3a (HC) RED CELL MORPHOLOGY Routine 05/30/2025 7:05 AM CDT Acute kidney failure, unspecified Heart failure, unspecified (HC) Chronic kidney disease, stage 3a (HC) CBC W PLT NO DIFF Routine 05/30/2025 7:05 AM CDT Acute kidney failure, unspecified Heart failure, unspecified (HC) Chronic kidney disease, stage 3a (HC) from Last 3 Months Results * (ABNORMAL) GLUCOSE METER (08/13/2025 6:52 AM CDT) Only the most recent of30 resultswithin the time period is included. [facility] Signature GLUCOSE METER 173(H) 65 - 100 mg/dL 08/13/2025 6:53 AM CDT [facility] Blood BLOOD SPECIMEN / Unknown 08/13/2025 6:52 AM CDT 08/13/2025 6:53 AM CDT Jake Alfredo MD CHEMISTRY Final R esult [facility] [address] [address], [place] * (ABNORMAL) Platelets AM (08/11/2025 9:54 AM CDT) Only the most recent of4 resultswithin the time period is included. Pathologist [facility] PLATELET COUNT 106(L) 140 - 440 thou/cu mm 08/11/2025 10:10 AM CDT [facility] MPV 11.7(H) 6.5 - 11.0 fL 08/11/2025 10:[address] [facility] Blood BLOOD SPECIMEN / Unknown Butterfly / Unknown 08/11/2025 9:54 AM CDT 08/11/2025 10:00 AM CDT Stephen Carter MD HEMATOLOGY Final Result Performing Organization Address [facility] Phone Number [facility] [address] [place] [address], [place] * (ABNORMAL) Hemoglobin AM (08/11/2025 9:54 AM CDT) Only the most recent of6 resultswithin the time period is included. Pathologist [facility] HEMOGLOBIN 8.2(L) 12.0 - 16.0 g/dL 08/11/2025 10:10 AM CDT [facility] MCV 92 80 - 100 fL 08/11/2025 10:10 AM CDT [facility] Blood BLOOD SPECIMEN / Unknown Butterfly / Unknown 08/11/2025 9:54 AM CDT 08/11/2025 10:00 AM CDT Stephen Carter MD HEMATOLOGY Final Result Performing Organization Address City/[facility] Co de Phone Number [facility] [address] [address], [place] * (ABNORMAL) Basic metabolic panel AM (08/11/2025 9:54 AM CDT) Only the most recent of7 resultswithin the time period is included. Pathologist [facility] SODIUM 142 136 - 145 mmol/L 08/11/2025 10:29 AM [facility] POTASSIUM 4.3 3.5 - 5.1 mmol/L 08/11/2025 10:29 AM [facility] CHLORIDE 110(H) 98 - 107 mmol/L 08/11/2025 10:29 AM [facility] CO2,TOTAL 21(L) 22 - 29 mmol/L 08/11/2025 10:29 AM [facility] ANION GAP 11 5 - 18 08/11/2025 10:29 AM [facility] GLUCOSE 260(H) 70 - 99 mg/dL 08/11/2025 10:29 AM [facility] CALCIUM 8.8 8.8 - 10.4 mg/dL 08/11/2025 10:29 AM [facility] Comment: Reference ranges for this test were updated on 09/12/2024 to reflect our healthy population more accurately. Reference range changes are not retroactively applied to results, but previous results using the same methodology can be interpreted in the context of the new reference range. BUN 75(H) 8 - 23 mg/dL 08/11/2025 10:29 AM [facility] CREATININE 1.64(H) 0.50 - 0.90 mg/dL 08/11/2025 10:29 AM [facility] BUN/CREAT RATIO 46(H) 10 - 20 10:29 AM [facility] eGFR 30(L) >90 mL/min/1. 73m2 08/11/2025 10:29 AM [facility] Comment:As of 2022, eG FR is calculated by the CKD-EPI creatinine equation without race adjustment. eGFR can be influenced by muscle mass, exercise, and diet. The reported eGFR is an estimation only and is only applicable if the renal function is stable. Blood BLOOD SPECIMEN / Unknown Butterfly / Unknown 08/11/2025 9:54 AM CDT 08/11/2025 10:00 AM CDT Stephen Carter MD CHEMISTRY Final Result Performing Organization Address [facility] Co de Phone Number [facility] [address] [place] [address], * (ABNORMAL) PLATELET ESTIMATE (08/10/2025 10:42 AM CDT) Only the most recent of3 resultswithin the time period is included. PLATELET ESTIMATE Decreased (A) Adequate, No estimate 08/10/2025 12:04 PM CDT [facility] Blood BLOOD SPECIMEN / Unknown Butterfly / Unknown 08/10/2025 10:42 AM CDT 08/10/2025 10:53 AM CDT Stephen Carter MD HEMATOLOGY Final Result Performing Organization Address [facility] de Phone Number [facility] [address] [place] [address], * (ABNORMAL) URINALYSIS MICROSCOPIC (08/09/2025 10:13 AM CDT) RBC 0-2 0-2, None Seen /HPF 08/09/2025 11:31 AM CDT [facility] WBC 11-25(A) 0-2, 3-5, None Seen /HPF 08/09/2025 11:31 AM CDT [facility] BACTERIA Few None Seen, Rare, Few Bacteria/ HPF 08/09/2025 11:31 AM CDT [facility] EPITHELIAL CELLS Few None Seen, Few Epi/HPF 08/09/2025 11:31 AM CDT [facility] YEAST Present(A) (none) 08/09/2025 11:31 AM CDT [facility] Urine URINE SPECIMEN / Unknown Non-Blood / Unknown 08/09/2025 10:13 AM CDT 08/09/2025 10:30 AM CDT Stephen Carter MD URINE Final Result [facility] [address] [place] [address], * (ABNORMAL) Urinalysis TODAY (08/09/2025 10:13 AM CDT) COLOR Yellow Yellow Color 08/09/2025 11:31 AM CDT [facility] CLARITY Clear Clear Clarity 08/09/2025 11:31 AM CDT [facility] SPECIFIC GRAVITY,URINE 1.020 1.010, 1.015, 1.020, 1.025 08/09/2025 11:31 AM CDT [facility] PH,URINE 5.0(A) 6.0, 7.0, 8.0, 5.5, 6.5, 7.5, 8.5 08/09/2025 11:31 AM CDT [facility] UROBILINOGEN, QUALITATIVE Normal Normal EU/dl 08/09/2025 11:31 AM CDT [facility] PROTEIN, URINE 30(A) Negative mg/dL 08/09/2025 11:31 AM CDT [facility] GLUCOSE, URINE Negative Negative mg/dL 08/09/2025 11:31 AM CDT [facility] KETONES,URINE Trace(A) Negative mg/dL 08/09/2025 11:31 AM CDT [facility] BILIRUBIN,URI NE Negative Negative 08/09/2025 11:31 AM CDT [facility] OCCULT BLOOD,URINE Negative Negative 08/09/2025 11:31 AM CDT [facility] NITRITE Negative Negative 08/09/2025 11:31 AM CDT [facility] LEUKOCYTE ESTERASE Moderate(A) Negative 08/09/2025 11:31 AM CDT [facility] Urine URINE SPECIMEN / Unknown Non-Blood / Unknown 08/09/2025 10:13 AM CDT 08/09/2025 10:30 AM CDT Stephen Carter MD URINE Final Result Performing Organization Address [facility] Co de Phone Number [facility] [address] [address], [place] * SODIUM (08/08/2025 6:34 AM CDT) Only the most recent of2 resultswithin the time period is included. SODIUM 139 136 - 145 mmol/L 08/08/2025 7:32 AM CDT [facility] Blood BLOOD SPECIMEN / Unknown Butterfly / Unknown 08/08/2025 6:34 AM CDT 08/08/2025 6:57 AM CDT Stephen Carter MD CHEMISTRY Final Result Performing Organization Address [facility] de Phone Number [facility] [address] [place] [address], [place] * POTASSIUM (08/08/2025 6:34 AM CDT) Only the most recent of3 resultswithin the time period is included. POTASSIUM 4.1 3.5 - 5.1 mmol/L 08/08/2025 7:32 AM CDT [facility] Blood BLOOD SPECIMEN / Unknown Butterfly / Unknown 08/08/2025 6:34 AM CDT 08/08/2025 6:57 AM CDT Stephen Carter MD CHEMISTRY Final Result Performing Organization Address [facility] Co de Phone Number [facility] [address] [address], [place] * (ABNORMAL) CREATININE (08/08/2025 6:34 AM CDT) Only the most recent of2 resultswithin the time period is included. eGFR 20(L) >90 mL/min/1.7 3m2 08/08/2025 7:32 AM CDT [facility] Comment:As of 2022, eG FR is calculated by the CKD-EPI creatinine equation without race adjustment. eGFR can be influenced by muscle mass, exercise, and diet. The reported eGFR is an estimation only and is only applicable if the renal function is stable. CREATININE 2.31(H) 0.50 - 0.90 mg/dL 08/08/2025 7:32 AM CDT [facility] Blood BLOOD SPECIMEN / Unknown Butterfly / Unknown 08/08/2025 6:34 AM CDT 08/08/2025 6:57 AM CDT Stephen Carter MD CHEMISTRY Final Result [facility] [address] [place] [address], * TRANSFUSE RBC (NURSE COMMUNICATION ORDER) (08/06/2025 6:01 PM CDT) Blood BLOOD SPECIMEN / Unknown Carmela Cole MD NURSING BLOOD BANK Final Re sult * RED BLOOD CELLS EA UNIT (08/06/2025 4:15 PM CDT) CROSSMATCH Compatible Compatible [facility] LAB BLOOD BANK PRODUCT BLOOD TYPE B Rh Negative [facility] [employer] LAB BLOOD BANK PRODUCT ID NUMBER [id number] [facility] [employer] LAB BLOOD BANK PRODUCT STATUS Transfused [facility] [employer] LAB BLOOD BANK PRODUCT DESCRIPTION RBC -1 LR [facility] [employer] LAB BLOOD BANK PRODUCT CODE [id number] [facility] [employer] Reminder LAB BLOOD BANK ISSUE DATE/TIME 08/06/25 16:37 [facility] [employer] [facility] BLOOD BANK Carmela Cole MD BLOOD BANK Edited Resu lt - Final [facility] [employer] LAB BLOOD BANK [address] [place] [address], * RBC W/O TYPE & SCREEN (08/06/2025 4:10 PM CDT) Pathologist [facility] QUANTITY 1 08/06/2025 4:1 0 PM CDT [facility] BLOOD BANK Blood BLOOD SPECIMEN / Unknown 08/06/2025 4:09 PM CDT Carmela Cole MD BLOOD BANK Final Resul t [facility] BLOOD BANK [address] [place] [address], * EKG 12 LEAD (08/06/2025 3:16 PM CDT) Only the most recent of2 resultswithin the time period is included. [facility] Interpretation Ventricular-pa alex rhythm Abnormal ECG When compared with ECG of 05-Aug-2025 15:38, Premature ventricular complexes are no longer Present Vent. rate has decreased by 7 bpm BEYOND NOW Ventricular Rate 60 BPM BEYOND NOW Atrial Rate 68 BPM BEYOND NOW P-R Interval ms BEYOND NOW QRS Duration 150 ms BEYOND NOW QT 470 ms [facility]YOND NOW QTc 470 ms BEYOND NOW P Leon degrees BEYOND NOW R Leon -72 degrees BEYOND NOW T Leon 108 degrees BEYOND NOW 08/06/2025 3:16 PM CDT 08/07/2025 5:53 PM CDT Carmela Cole MD EKG ORD Final Resul t Performing Organization Address City/[facility]/ZIP Co de Phone Number [facility] NOW [place], [place] * (ABNORMAL) PHOSPHORUS (08/06/2025 3:16 PM CDT) [facility] PHOSPHORUS 4.6(H) 2.5 - 4.5 mg/dL 08/06/2025 4:06 PM CDT [facility] Blood BLOOD SPECIMEN / Unknown Non-Lab Venipuncture / Unknown 08/06/2025 3:16 PM CDT 08/06/2025 3:25 PM CDT Carmela Cole MD CHEMISTRY Final Resul t [facility] [address] [place] [address], [place] * MAGNESIUM (08/06/2025 3:16 PM CDT) Pathologist [facility] MAGNESIUM 2.1 1.6 - 2.4 mg/dL 08/06/2025 4:06 PM CDT [facility] Blood BLOOD SPECIMEN / Unknown Non-Lab Venipuncture / Unknown 08/06/2025 3:16 PM CDT 08/06/2025 3:25 PM CDT us Carmela Cole MD CHEMISTRY Final Resul t [facility] [address] [address], [place] * (ABNORMAL) CBC W PLT NO DIFF (08/06/2025 3:15 PM CDT) Only the most recent of3 resultswithin the time period is included. Pathologist [facility] WHITE BLOOD COUNT 7.3 4.5 - 11.0 thou/cu mm 08/06/2025 3:53 PM CDT [facility] RED BLOOD COUNT 2.94(L) 4.00 - 5.20 mil/cu mm 08/06/2025 3:53 PM CDT [facility] HEMOGLOBIN 8.8(L) 12.0 - 16.0 g/dL 08/06/2025 3:53 PM CDT [facility] HEMATOCRIT 27.5(L) 33.0 - 51.0 % 08/06/2025 3:53 PM CDT [facility] MCV 94 80 - 100 fL 08/06/2025 3:53 PM CDT [facility] MCH 29.9 26.0 - 34.0 pg 08/06/2025 3:53 PM CDT [facility] MCHC 32.0 32.0 - 36.0 g/dL 08/06/2025 3:53 PM CDT [facility] RDW 14.1 11.5 - 15.5 % 08/06/2025 3:53 PM CDT [facility] PLATELET COUNT 79(L) 140 - 440 thou/cu mm 08/06/2025 3:53 PM CDT [facility] MPV 11.9(H) 6.5 - 11.0 fL 08/06/2025 3:53 PM CDT [facility] NRBC 0.0 % 08/06/2025 3:53 PM CDT [facility] ABS NRBC 0.0 thou /cu mm 08/06/2025 3:[address] [facility] Blood BLOOD SPECIMEN / Unknown Non-Lab Venipuncture / Unknown 08/06/2025 3:15 PM CDT 08/06/2025 3:24 PM CDT us Carmela Cole MD HEMATOLOGY Final Resul t [facility] [address] [place] [address], * (ABNORMAL) ARTERIAL BLOOD GAS (08/06/2025 3:15 PM CDT) PH, ARTERIAL 7.32(L) 7.35 - 7.45 08/06/2025 3:28 PM CDT [facility] PCO2, ARTERIAL 48(H) 32 - 45 mmHg 08/06/2025 3:28 PM CDT [facility] PO2, ARTERIAL 72(L) 83 - 108 mmHg 08/06/2025 3:[address] [facility] HCO3, ARTERIAL 25 21 - 28 mmol/L 08/06/2025 3:[address] [facility] BASE EXCESS, ARTERIAL -2.0 -2.0 - 3.0 08/06/2025 3:[address] [facility] O2 SATURATION, ARTERIAL 98 94 - 98 % 08/06/2025 3:28 PM CDT [facility] INSPIRED O2 6 08/06/2025 3:28 PM CDT [facility] Comment:Unit of Measure: Lit ers (L) if <=20; Percent (%) if >20 PATIENT TEMPERATURE 35.6 Degrees C 08/06/2025 3:28 PM CDT [facility] Blood ARTERIAL BLOOD SPECIMEN / Unknown Non-Lab Venipuncture / Unknown 08/06/2025 3:15 PM CDT 08/06/2025 3:23 PM CDT Carmela Cole MD CHEMISTRY Final Resul t Performing Organization Address [facility] de Phone Number [facility] [address] [place] [address], [place] * CALCIUM IONIZED HOSPITAL DRAW ONLY (08/06/2025 3:15 PM CDT) [facility] CALCIUM,IONIZE D 1.21 1.15 - 1.27 mmol/L 08/06/2025 3:32 PM CDT [facility] Blood BLOOD SPECIMEN / Unknown Non-Lab Venipuncture / Unknown 08/06/2025 3:15 PM CDT 08/06/2025 3:25 PM CDT Carmela Cole MD CHEMISTRY Final Resul t Performing Organization Address [facility] de Phone Number [facility] [address] [place] [address], [place] * HCHG TUBING PR1, HCHG TUBING PR20, HCHG DRSG PR1, HCHG DRSG PR5, HCHG KIT PR5 (08/06/2025 2:13 PM CDT) Narrative Carmela Cole MD - 08/06/2025 2:13 PM CDT Carmela Cole MD 08/06/2025 2:13 PM Arterial Line Patient location during procedure: OR Indications: lab sampling and monitoring Staffing Preanesthetic Checklist Completed: patient identified, risks and benefits discussed, consent obtained and timeout performed Arterial Line Patient position: supine. Comment:. Laterality: left Site: radial Ultrasound guidance: live ultrasound, sterile gel and probe cover used in ultrasound-guided central venous catheter insertion and Image not saved. Needle localization (ultrasound): no pathologic findings, selected vessel patent, anatomically normal, potential access sites evaluated and needle visualized entering selected vessel. Securement/dressing: Biopatch applied, dressing applied. Comment: Needle Catheter size: 20 G. Comment:. Events: no complications. Carmela Cole MD ANESTHESIA PX NOTE ORDERABL ES Final Result * XR C-ARM EQUAL OR GREATER 2 HR (08/06/2025 1:20 PM CDT) Anatomical Region Laterality Modality Other Narrative 08/06/2025 10:49 AM CDT 1 minute 45 seconds fluoroscopy time was provided. See operative/procedure report for further information. Daniel James MD FLUOROSCOPY Final Result * HCHG TUBE PR1, HCHG INSTRUMENT DISP PR10, HCHG STYLET PR1 (08/06/2025 12:00 PM CDT) Narrative Bowen Sears CRNA - 08/06/2025 12:00 PM CDT Bowen Sears CRNA 08/06/2025 12:01 PM Procedure: ETT Patient location during procedure: OR ETT Properties Mask Ventilation: easy Final Technique: video laryngoscopy Type: straight Location: oral Cuffed: yes Tube Size: 7.0 mm Stylet: yes Laryngoscope Blade: Glidescope Blade Size: 3 Cormack-Lehane Grade View: 1 Insertion Attempts: 1 Placement Verification: end tidal CO2 and symmetrical chest wall movement Assessment: pharynx clear Secured at: 22 Measured From: lips Difficulty: 0 (not difficult) Carmela Cole MD ANESTHESIA PX NOTE ORDERABL ES Final Result * Type and Screen (08/06/2025 10:14 AM CDT) ABORH B Rh Positive 08/06/2025 11:12 AM CDT [employer] LAB BLOOD BANK ANTIBODY SCREEN Negative Negative 08/06/2025 11:12 AM CDT [facility] SPECIMEN EXPIRATION DATE/TIME 08/09/25 23:59 08/06/2025 11:12 AM CDT [facility] Blood BLOOD SPECIMEN / Unknown Butterfly / Unknown 08/06/2025 10:14 AM CDT 08/06/2025 10:23 AM CDT Clar[facility] LOBO BLOOD BANK Final Resu lt [facility] B[facility]OD BANK [address] [place] [address], * PACER ESTHER DUAL CHAMBER WO REPROG (08/06/2025 9:40 AM CDT) Narrative Handy Barba MD - 08/06/2025 9:40 AM CDT Handy Barba MD 08/07/2025 12:31 PM PACEMAKER EVALUATION REPORT August 06, 2025 Summary: Normal pacemaker function. Lead trends stable. 10.6% AT/AF burden- cardiac compass reflects 100% burden since end of May 2025- however could be higher burden given severe undersensing noted today. On eliquis. 2 VT detections 7 and 9 beats in duration with rates 179-190 bpm. AP 70.8%, MANAGER HOTEL 99.7%. Battery estimating 6.6 years remaining. Patient is having hip surgery today and is dependant Recommend that a magnet be placed over the pacemaker if cautery is used and pacemaker interaction is seen during the procedure. While the magnet is directly over the device and flush with patient skin, it will pace asynchronously at 85 bpm. Once the magnet is removed, the initial settings are immediately resumed and active (current settings: DDDR 60; most recent underlying rhythm: atrial fibrillation with CHB no R waves at VVI 30). Patient will need to be externally monitored for arrhythmias while the magnet is in place. No post-op device interrogation is required unless there are specific device related questions or concerns. Indication for Pacemaker: Complete Heart Block Primary MD: Anisa Matthews NP Implanting MD: Jose Maria Domínguez MD DEVICE DATA Vial Gauger [employer]tronic: Model Ghazal XT DR MRI [id number] Implant Date 12/27/2020 LEAD DATA Atrial Lead: Vial Gauger Medtronic: Model 4076 cm Implant Date 12/27/2020 RV Lead: Vial Gauger Medtronic: Model 4076 cm Implant Date 12/27/2020 Advisory: None Location of evaluation: [facility] Reason for evaluation: MD Request MEASUREMENTS Atrial Sensing - P wave: 0.4 mV Atrial Capture: MIRELLA-AF Atrial Lead Impedance: 285 ohms Ventricular Sensing - R wave: No R waves at VVI 30 RV Capture: 1 V @ 0.4 ms Ventricular Lead Impedance: Right - 342 ohms Underlying rhythm: Atrial Fibrillation with CHB no R waves at VVI 30 DIAGNOSTIC DATA - since 11/10/2023 Atrial paced: 70.8%, Total SALES [employer]ENT TRADING STAMPS paced: 99.7% Atrial episodes : 10.6% AT/AF burden- cardiac compass reflects 100% burden since end of May 2025- however could be higher burden given severe undersensing noted today. On eliquis Associated symptoms: n/a Ventricular episodes (detects >150 bpm x 5 beats): 2 VT detections 7 and 9 beats in duration with rates 179-190 bpm. Associated symptoms: none Histogram: appropriate heart rate distribution Magnet rate: 85 bpm Battery voltage: 2.97 V Estimated battery longevity: 6.6 years FINAL PARAMETERS Mode: DDDR Lower rate: 60 bpm Upper rate: 130/130 bpm AV Delay: 180/150 ms Mode Switch: 171 bpm Rate Response: Low 3/3 Atrial - Amplitude: 1.5 V Pulse width: 0.4 ms Sensitivity: 0.15 mV Refractory: auto 250 ms Polarity: Bipolar Right Ventricular - Amplitude: 2 V Pulse width: 0.4 ms Sensitivity: 0.9 mV Polarity: Bipolar Changes made: increased atrial sensitivity to prevent undersensing of AF Follow up: per routine with [facility] Sarah Polk RN [facility] Pacemaker/ICD Clinic [phone] us Handy Barba MD CARDIAC SERVICES ORD F inal Result * XR FEMUR 2 VIEWS RIGHT (08/06/2025 9:13 AM CDT) Anatomical Region Laterality Modality FEMURS, FEMUR R Digital Radiogra phy 08/06/2025 9:27 AM CDT Narrative 08/06/2025 9:27 AM CDT For Patients: As a result of the Cures Act, medical imaging exams and procedure reports are released immediately into your electronic medical record. You may view this report before your referring provider. If you have questions, please contact your health care provider. INDICATION: Trauma TECHNIQUE: Right femur views. COMPARISON: CT pelvis August 05, 2025 FINDINGS/ IMPRESSION: Unchanged alignment of comminuted and impacted right intertrochanteric femoral fracture. Moderate adjacent soft tissue swelling is present. Right total knee arthroplasty. Vascular calcification. Dictated by Yanique Ochoa MD @ Aug 06 2025 9:27AM (Electronically Signed) [email or web address] Procedure Note Yanique Ochoa MD - 08/06/2025 For Patients: As a result of the Cures Act, medical imagingexams and procedure reports are released immediately into your electronicmedical record. You may view this report before your referring provider.If you have questions, please contact your health care provider. INDICATION: Trauma TECHNIQUE: Right femur views. COMPARISON: CT pelvis August 05, 2025 FINDINGS/ IMPRESSION: Unchanged alignment of comminuted and impacted right intertrochantericfemoral fracture. Moderate adjacent soft tissue swelling is present. Right total knee arthroplasty. Vascular calcification. Dictated by Yanique Ochoa MD @ Aug 06 2025 9:27AM (Electronically Signed) [email or web address] us [facility] Final Resu lt * (ABNORMAL) PROTIME-INR (08/06/2025 6:02 AM CDT) INR 1.2 <1.3 08/06/2025 6:45 AM CDT [facility] PROTIME 13.3(H) 10.6 - 12.4 sec 08/06/2025 6:45 AM CDT [facility] Blood BLOOD SPECIMEN / Unknown Butterfly / Unknown 08/06/2025 6:02 AM CDT 08/06/2025 6:33 AM CDT Narrative [facility] - 08/06/2025 6:45 AM CDT Therapeutic Range 2.0-3.0 for most anticoagulated patients 2.5-3.5 or 4.0 for high risk patients The INR is only used for patients on stable oral anticoagulant therapy. It makes no significant contribution to the diagnosis or treatment of patients whose Protime is prolonged for other reasons. INR results are increased when heparin levels exceed 1.0 U/mL, which corresponds to an aPTT >125 seconds if the patient is on UFH. us Lily Parish MD HEMATOLOGY Final Result Performing Organization Address [facility] de Phone Number [facility] [address] [place] [address], [place] * (ABNORMAL) Hemoglobin A1C (08/06/2025 1:21 AM CDT) [facility] HEMOGLOBIN A1C MONITORING (POCT) 7.4(H) <=6.4 % 08/06/2025 3:59 PM CDT [facility] Blood BLOOD SPECIMEN / Unknown Venipuncture / Unknown 08/06/2025 1:21 AM CDT 08/06/2025 1:28 AM CDT Narrative [facility] - 08/06/2025 3:59 PM CDT (<=6.9%) Indicates good control (7.0% to 7.9%) Indicates fair control (>=8.0%) Indicates poor control NOTE: These thresholds are guidelines and individual targets may vary. Falsely low levels may be seen with: Recent Transfusion, Recent Significant Blood Loss, Hemolytic Diseases, or Falsely elevated levels may be seen with: Untreated Anemias, Splenectomy us Lily Parish MD CHEMISTRY Final Result Performing Organization Address [facility] de Phone Number [facility] [address] [place] [address], [place] * CT PELVIS MUSCULOSKELETAL AND RIGHT HIP WO (08/05/2025 4:16 PM CDT) Anatomical Region Laterality Modality Pelvis, HIPR Computed Tomogra phy 08/05/2025 5:02 PM CDT Impressions 08/05/2025 5:02 PM CDT 1. Acute comminuted and mildly impacted 60 degree angulated intertrochanteric fracture right hip. 2. Nonunited subacute chronic appearing left superior and inferior pubic rami fractures. Chronic stress or insufficiency type fracture through the sacrum. Please note that all CT scans at this facility use dose modulation, iterative reconstruction, and/or weight-based dosing when appropriate to reduce radiation dose to as low as reasonably achievable. Dictated by Chris Bass MD @ 08/05/2025 5:02:01 PM (Electronically Signed) Narrative 08/05/2025 5:02 PM CDT For Patients: As a result of the Cures Act, medical imaging exams and procedure reports are released immediately into your electronic medical record. You may view this report before your referring provider. If you have questions, please contact your health care provider. INDICATION: Characterize injury. Fall. COMPARISON: Plain film same date. TECHNIQUE: Multidetector imaging bony pelvis with axial coronal and sagittal reformats. FINDINGS: Mildly comminuted and impacted roughly 62 degree angulated intertrochanteric proximal right femoral fracture. Osteopenia. Mild osteoarthritis of right hip. Anatomic alignment. There is a nonunited subacute to chronic appearing fracture through the left inferior pubic ramus with about a half shaft with offset. Sclerosis and incomplete healing through left superior pubic ramus fracture just below the root. Patchy sclerosis and cortical and trabecular fracturing without offset through the sacrum. Facet arthrosis in the visualized spine. Vertebroplasty cement incompletely visualized L3. Subtle shallow compression deformities from presumed chronic endplate fractures at L4. Nerve stimulator body and upper right subcutaneous buttock with a lead extending above the field of view midline back. Procedure Note Chris Bass MD - 08/05/2025 For Patients: As a result of the Cures Act, medical imagingexams and procedure reports are released immediately into your electronicmedical record. You may view this report before your referring provider.If you have questions, please contact your health care provider. INDICATION: Characterize injury. Fall. COMPARISON: Plain film same date. TECHNIQUE: Multidetector imaging bony pelvis with axial coronal and sagittalreformats. FINDINGS: Mildly comminuted and impacted roughly 62 degree angulatedintertrochanteric proximal right femoral fracture. Osteopenia. Mildosteoarthritis of right hip. Anatomic alignment. There is a nonunitedsubacute to chronic appearing fracture through the left inferior pubicramus with about a half shaft with offset. Sclerosis and incompletehealing through left superior pubic ramus fracture just below the root.Patchy sclerosis and cortical and trabecular fracturing without offsetthrough the sacrum. Facet arthrosis in the visualized spine.Vertebroplasty cement incompletely visualized L3. Subtle shallowcompression deformities from presumed chronic endplate fractures at L4.Nerve stimulator body and upper right subcutaneous buttock with a leadextending above the field of view midline back. IMPRESSION: 1. Acute comminuted and mildly impacted 60 degree angulatedintertrochanteric fracture right hip. 2. Nonunited subacute chronic appearing left superior and inferior pubicrami fractures. Chronic stress or insufficiency type fracture through thesacrum. Please note that all CT scans at this facility use dose modulation,iterative reconstruction, and/or weight-based dosing when appropriate toreduce radiation dose to as low as reasonably achievable. Dictated by Chris Bass MD @ 08/05/2025 5:02:01 PM (Electronically Signed) us Everett Nuñez MD CT Final Resu lt * CT SPINE CERVICAL WO (08/05/2025 3:16 PM CDT) Anatomical Region Laterality Modality CERVICAL SPINE, NECK, Spine Comp uted Tomography 08/05/2025 3:39 PM CDT Narrative 08/05/2025 3:39 PM CDT For Patients: As a result of the Cures Act, medical imaging exams and procedure reports are released immediately into your electronic medical record. You may view this report before your referring provider. If you have questions, please contact your health care provider. Indication: Neck trauma Technique: Volumetric multidetector CT images of the cervical spine were obtained without the administration of IV contrast. Comparison: None available. Findings: The cervical vertebral body heights are grossly maintained with minimal endplate Schmorl`s defects and subchondral cystic changes. The vertebral bodies are grossly preserved in normal cervical lordosis without evidence of significant spondylolisthesis. There is no displaced fracture or dislocation. There is moderate to severe degenerative disc disease with disc height loss and marginal osteophyte formation. There is moderate facet arthrosis. The paraspinous soft tissues are grossly within normal limits. Impression: Moderate to severe degenerative changes of the cervical spine without acute osseous abnormality. Please note that all CT scans at this facility use dose modulation, iterative reconstruction, and/or weight-based dosing when appropriate to reduce radiation dose to as low as reasonably achievable. Dictated by Domingo Husain MD @ 08/05/2025 3:39:09 PM (Electronically Signed) Procedure Note Domingo Husain MD - 08/05/2025 For Patients: As a result of the Cures Act, medical imagingexams and procedure reports are released immediately into your electronicmedical record. You may view this report before your referring provider.If you have questions, please contact your health care provider. Indication: Neck trauma Technique: Volumetric multidetector CT images of the cervical spine were obtainedwithout the administration of IV contrast. Comparison: None available. Findings: The cervical vertebral body heights are grossly maintained with minimalendplate Schmorl`s defects and subchondral cystic changes. The vertebral bodies are grossly preserved in normal cervical lordosiswithout evidence of significant spondylolisthesis. There is no displaced fracture or dislocation. There is moderate to severe degenerative disc disease with disc heightloss and marginal osteophyte formation. There is moderate facet arthrosis. The paraspinous soft tissues are grossly within normal limits. Impression: Moderate to severe degenerative changes of the cervical spine withoutacute osseous abnormality. Please note that all CT scans at this facility use dose modulation,iterative reconstruction, and/or weight-based dosing when appropriate toreduce radiation dose to as low as reasonably achievable. Dictated by Domingo Husain MD @ 08/05/2025 3:39:09 PM (Electronically Signed) Everett Nuñez MD CT Final Resu lt * CT HEAD BRAIN WO (08/05/2025 3:16 PM CDT) Anatomical Region Laterality Modality HEAD, BRAIN Computed Tomogra phy 08/05/2025 3:41 PM CDT Narrative 08/05/2025 3:41 PM CDT For Patients: As a result of the Cures Act, medical imaging exams and procedure reports are released immediately into your electronic medical record. You may view this report before your referring provider. If you have questions, please contact your health care provider. Indication: Head trauma, moderate to severe Technique: Volumetric multidetector CT images of the head were obtained without the administration of low osmolar intravenous contrast. Comparison: None available Findings: There is no intra-axial or extra-axial fluid collection. There is no mass effect or midline shift. There is age-related cortical atrophy with moderate sulcal widening and ex vacuo dilatation of the lateral ventricles. There are chronic small vessel disease changes in the subcortical and periventricular white matter without lost frias-white differentiation. Old lacunar changes of the hjtup-wrvbhem-nwtm-left basal ganglia appreciated. The orbits and their contents are grossly within normal limits. The bony calvarium is grossly intact. There is minimal polypoid mucosal thickening within the left maxillary sinus. The mastoid air cells are well aerated. Impression: Age-related and chronic small-vessel disease changes of the brain without acute intracranial abnormality. Please note that all CT scans at this facility use dose modulation, iterative reconstruction, and/or weight-based dosing when appropriate to reduce radiation dose to as low as reasonably achievable. Dictated by Domingo Husain MD @ 08/05/2025 3:41:59 PM (Electronically Signed) Procedure Note Domingo Husain MD - 08/05/2025 For Patients: As a result of the Century Cures Act, medical imagingexams and procedure reports are released immediately into your electronicmedical record. You may view this report before your referring provider.If you have questions, please contact your health care provider. Indication: Head trauma, moderate to severe Technique: Volumetric multidetector CT images of the head were obtained without theadministration of low osmolar intravenous contrast. Comparison: None available Findings: There is no intra-axial or extra-axial fluid collection. There is no mass effect or midline shift. There is age-related cortical atrophy with moderate sulcal widening and exvacuo dilatation of the lateral ventricles. There are chronic small vessel disease changes in the subcortical andperiventricular white matter without lost frias-white differentiation. Oldlacunar changes of the mandx-hredpcx-msgi-left basal ganglia appreciated. The orbits and their contents are grossly within normal limits. The bony calvarium is grossly intact. There is minimal polypoid mucosal thickening within the left maxillarysinus. The mastoid air cells are well aerated. Impression: Age-related and chronic small-vessel disease changes of the brain withoutacute intracranial abnormality. Please note that all CT scans at this facility use dose modulation,iterative reconstruction, and/or weight-based dosing when appropriate toreduce radiation dose to as low as reasonably achievable. Dictated by Domingo Husain MD @ 08/05/2025 3:41:59 PM (Electronically Signed) Everett Nuñez MD CT Final Resu lt * XR HIP 2 OR 3 VIEWS W PELVIS RIGHT (08/05/2025 3:11 PM CDT) Anatomical Region Laterality Modality HIPS, HIPR, Pelvis Digital Radio graphy 08/05/2025 3:35 PM CDT Narrative 08/05/2025 3:35 PM CDT For Patients: As a result of the Cures Act, medical imaging exams and procedure reports are released immediately into your electronic medical record. You may view this report before your referring provider. If you have questions, please contact your health care provider. INDICATION: Trauma TECHNIQUE: Three views right hip FINDINGS/IMPRESSION: Oblique displaced proximal right hip fracture with varus angulation extending into the lesser trochanter. Fractures of the left superior and inferior pubic ramus. Dictated by Yanci Nails MD @ 08/05/2025 3:35:54 PM (Electronically Signed) Procedure Note Yanci Nails MD - 08/05/2025 For Patients: As a result of the Cures Act, medical imagingexams and procedure reports are released immediately into your electronicmedical record. You may view this report before your referring provider.If you have questions, please contact your health care provider. INDICATION: Trauma TECHNIQUE: Three views right hip FINDINGS/IMPRESSION: Oblique displaced proximal right hip fracture with varus angulationextending into the lesser trochanter. Fractures of the left superior and inferior pubic ramus. Dictated by Yanci Nails MD @ 08/05/2025 3:35:54 PM (Electronically Signed) Everett Nuñez MD GENERAL IMAGING Final Resu lt * XR KNEE 2 VIEWS RIGHT (08/05/2025 3:11 PM CDT) Anatomical Region Laterality Modality KNEE R Digital Radiogra phy 08/05/2025 3:34 PM CDT Narrative 08/05/2025 3:34 PM CDT For Patients: As a result of the s Act, medical imaging exams and procedure reports are released immediately into your electronic medical record. You may view this report before your referring provider. If you have questions, please contact your health care provider. INDICATION: Pain TECHNIQUE: Two views right knee FINDINGS/IMPRESSION: Normal alignment. No acute fracture or acute osseous abnormalities are visualized. Right knee arthroplasty in appropriate position. Bones are demineralized. Vascular calcifications. No large knee effusion seen. Dictated by Yanci Nails MD @ 08/05/2025 3:34:11 PM (Electronically Signed) Procedure Note Yanci Nails MD - 08/05/2025 For Patients: As a result of the s , medical imagingexams and procedure reports are released immediately into your electronicmedical record. You may view this report before your referring provider.If you have questions, please contact your health care provider. INDICATION: Pain TECHNIQUE: Two views right knee FINDINGS/IMPRESSION: Normal alignment. No acute fracture or acute osseous abnormalities arevisualized. Right knee arthroplasty in appropriate position. Bones are demineralized.Vascular calcifications. No large knee effusion seen. Dictated by Yanci Nails MD @ 08/05/2025 3:34:11 PM (Electronically Signed) Everett Nuñez MD GENERAL IMAGING Final Resu lt * XR SHOULDER 2 VIEWS RIGHT (08/05/2025 3:11 PM CDT) Anatomical Region Laterality Modality SHOULDERS, SHOULDER R Digital Ra diography 08/05/2025 3:33 PM CDT Narrative 08/05/2025 3:33 PM CDT For Patients: As a result of the s Act, medical imaging exams and procedure reports are released immediately into your electronic medical record. You may view this report before your referring provider. If you have questions, please contact your health care provider. INDICATION: Trauma TECHNIQUE: Two views of the right shoulder FINDINGS/IMPRESSION: Normal alignment. No acute fracture or acute osseous abnormalities are visualized. Normal articulation glenohumeral joint calcific tendinosis. No significant degenerative change Dictated by Yanci Nails MD @ 08/05/2025 3:33:10 PM (Electronically Signed) Procedure Note Yanci Nails MD - 08/05/2025 For Patients: As a result of the Cures Act, medical imagingexams and procedure reports are released immediately into your electronicmedical record. You may view this report before your referring provider.If you have questions, please contact your health care provider. INDICATION: Trauma TECHNIQUE: Two views of the right shoulder FINDINGS/IMPRESSION: Normal alignment. No acute fracture or acute osseous abnormalities arevisualized. Normal articulation glenohumeral joint calcific tendinosis. Nosignificant degenerative change Dictated by Yanci Nails MD @ 08/05/2025 3:33:10 PM (Electronically Signed) Everett Nuñez MD GENERAL IMAGING Final Resu lt * (ABNORMAL) RED CELL MORPHOLOGY (08/05/2025 12:13 PM CDT) Only the most recent of2 resultswithin the time period is included. JAXONTOCYTES Few 08/05/2025 12:39 PM CDT [facility] RBC COMMENT Present(A) RBC morphology appears normal, RBC morphology within normal limits for newborns. 08/05/2025 12:39 PM CDT [facility] LARGE PLATELETS Present 12:39 PM CDT [facility] Blood BLOOD SPECIMEN / Unknown Butterfly / Unknown 08/05/2025 12:13 PM CDT 08/05/2025 12:20 PM CDT Everett Nuñez MD HEMATOLOGY Final Resu lt [facility] [address] [place] [address] * SCAN-CARDIAC STRIP (08/05/2025 12:00 AM CDT) Narrative 08/05/2025 12:00 AM CDT Ordered by an unspecified provider. us Other Clinical Staff OTHER Final Resul t from Last 3 Months Insurance MEDICARE PART B [place] ONLY [place] MEDIC[place] PART A HB ONLY [place] ONLY MEDICAID WC TRAVELERS Advance Directives * DNR (Latest Code Status on File) Date Activated Date Inactivated Comments 08/05/2025 10:36 PM 08/13/2025 1:25 PM Question Answer Comments Code Status Discussion: Reviewed Preferences * Full Code Date Activated Date Inactivated Comments 08/05/2025 9:30 PM 08/05/2025 10:36 PM Question Answer Comments Code Status Discussion: Unable to Assess Preferences, Provider to review later * DNR Date Activated Date Inactivated Comments 02/15/2025 2:00 PM 02/19/2025 7:53 PM Question Answer Comments Code Status Discussion: Reviewed Preferences * Full Code Date Activated Date Inactivated Comments 02/15/2025 12:19 PM 02/15/2025 2:00 PM Question Answer Comments Code Status Discussion: Unable to Assess Preferences, Provider to review later * DNR Date Activated Date Inactivated Comments 10/31/2021 9:46 PM 11/07/2021 3:46 PM Question Answer Comments Code Status Discussion: Reviewed Preferences Care Teams Tool Polishing Machine Operator Relationship Specialty Start Date End Date Anisa Matthews PHOTO PRINT SPECIALIST [address] [place] [id number] PCP - General Emergency Medicine 08/08/24
--- OUTSIDE RECORDS SUMMARY | 2025-08-22 00:17 | XMS_ITS | Encounter Summary ---
Author Organization [facility] Address [address] [place] [address]. [place] [address] Care Team Providers Care Milk Sampler Name Role Phone Chu Cruz PA-C Primary Care Provider Minna Chawla RN Unavailable Unavailable Minna Chawla RN Unavailable Unavailable Chu Cruz PA-C Unavailable [phone] Luis Miguel Woodson MD Unavailable Unavailable Daisy Mejia RULES EXAMINER Unavailable Aruna Mart Unavailable [phone] Chris Ricketts DPM Unavailable [phone] Chris Ricketts DPM Unavailable Clem Maynard MD Unavailable Unavailable Clem Maynard MD Unavailable Unavailable Encounter Details Date Type Department Care Team (Late st Contact Info) Description 03/03/2022 [facility] [address] [place] [id number] Raphael Hi, MIKE Social History Tobacco [...] Sex Assigned at Female 01/14/2021 7:41 PM RADIOCHEMICAL TECHNICIAN Legal Sex Female 6:11 PM CDT Gender Identity Female 01/14/2021 7:41 PM RADIOCHEMICAL TECHNICIAN Sexual Orientation Straight 01/14/2021 7: 41 PM RADIOCHEMICAL TECHNICIAN COVID-19 Exposure Response Date Recorded In the [...] documented as of this encounter Care Teams Milk Sampler Relationship Specialty Start Date End Date Chu Cruz PA-C [address] [address] PCP - General Physician Roofer Helper Vinyl Coating 07/07/17 Minna Chawla RN [address] [address] Flat Surfacer Jewel Diabetes Education 06/30/18 Minna Chawla RN [address] [address] Flat Surfacer Jewel Diabetes Education 06/30/18 Chu Cruz PA-C [address] [address] Assigned PCP 11/14/17 Luis Miguel Woodson MD Assigned Heart and Vascular Provider 08/30/20 06/26/22 Daisy Mejia NP [address] [place] [address] Assigned Neuroscience Provider 09/07/21 03/05/23 Aruna Mart [address] [facility] [facility] [place], [place] [address] Flat Surfacer Jewel 01/16/22 Chris Ricketts DPM [address] [facility] [place] [address] Assigned Musculoskeletal Provider 01/11/22 12/11/22 Chris Ricketts DPM [address] [facility] [facility] [place] [address] Assigned Surgical Provider 12/12/22 02/28/24 Celm Maynard MD [address] [place] [address] Cardiovascular Disease 01/07/23 Clem Maynard MD [address] [place] [address] Assigned Heart and Vascular Provider 01/16/23 07/30/24 documented as of this encounter
--- OUTSIDE RECORDS SUMMARY | 2025-08-22 00:17 | XMS_ITS | Encounter Summary ---
Author Organization [facility] Address [address] [place] [address] Care Team Providers Care Level Vial Marker Name Role Phone Chu Cruz PA-C Primary Care Provider Minna Chawla RN Unavailable Unavailable Minna Chawla RN Unavailable Unavailable Chu Cruz PA-C Unavailable [phone] Luis Miguel Woodson MD Unavailable Unavailable Daisy Mejia METAL BOX MAKER Unavailable Aruna Mart Unavailable [phone] Chris Ricketts DPM Unavailable [phone] Chris Ricketts DPM Unavailable [phone] Clem Maynard MD Unavailable Unavailable Clem Maynard MD Unavailable Unavailable Encounter Details Date Type Department Care Team (Late st Contact Info) Description 05/13/2022 [facility] [address] [id number] Lazara Ayers MA Social History [...] Assigned at Female 01/14/2021 7:41 PM SUPERVISOR RICE MILLING Legal Sex Female 6:11 PM CDT Gender Identity Female 01/14/2021 7:41 PM SUPERVISOR RICE MILLING Sexual Orientation Straight 01/14/2021 7: 41 PM SUPERVISOR RICE MILLING COVID-19 Exposure Response Date Recorded In the [...] Time PHQ-9 Depression Total Score: 3 03/26/20 8:15 AM CDT documented as of this encounter Care Teams Level Vial Marker Relationship Specialty Start Date End Date Chu Cruz PA-C [address] [address] PCP - General Physician Apprentice Architect 07/07/17 Minna Chawla RN [address] [address] Pot Press Operator Diabetes Education 06/30/18 Minna Chawla RN [address] [address] Pot Press Operator Diabetes Education 06/30/18 Chu Cruz PA-C [address] [address] Assigned PCP 11/14/17 Luis Miguel Woodson MD Assigned Heart and Vascular Provider 08/30/20 06/26/22 Daisy Mejia NP [address] [facility] [place] [address] Assigned Neuroscience Provider 09/07/21 03/05/[address] [facility] [place], [place] [address] Pot Press Operator 01/16/22 Chris Ricketts DPM [address] [facility] [place] [address] Assigned Musculoskeletal Provider 01/11/22 12/11/22 Chris Ricketts DPM [address] [place] [address] Assigned Surgical Provider 12/12/22 02/28/24 Clem Maynard MD [address] [facility] [place] [address] Cardiovascular Disease 01/07/23 Clem Maynard MD [address] [facility] [place] [address] Assigned Heart and Vascular Provider 01/16/23 07/30/24 documented as of this encounter
--- OUTSIDE RECORDS SUMMARY | 2025-08-22 00:17 | XMS_ITS | Encounter Summary ---
Author Organization [facility] Address [address] [place] [address] Care Team Providers Care Aluminum Molder Name Role Phone Leti Traylor MD Primary Care Provider [phone] Chu Cruz PA-C Primary Care Provider Minna Chawla RN Unavailable Unavailable Minna Chawla RN Unavailable Unavailable Chu Cruz PA-C Unavailable Chu Cruz PA-C Unavailable Lisa Riggs RN Unavailable [phone] Dario Potter MD Unavailable [phone] Luis Miguel Woodson MD Unavailable Unavailable Matheus Medina MD Unavailable [phone] Daisy Mejia NP Unavailable Aruna Mart Unavailable [phone] Chris Ricketts DPM Unavailable [phone] Chris Ricketts DPM Unavailable [phone] Clem Maynard MD Unavailable Unavailable Clem Maynard MD Unavailable Unavailable Reason for Visit * Reason Comments Medication Refill Encounter Details Date Type Department Care Team (Late st Contact Info) Description 11/18/[address] [phone] Palmira Gil MD [facility] [address] [place] [address] Medication Refill Social History Tobacco Use Types Packs/Day Years Used Date Smoking Tobacco: Former Alcohol Use Standard Drinks/Week Comments Yes 0 (1 standard drink = 0.6 oz pur e alcohol) rarely Comments No Sex and Gender Information Value Date Recorded Sex Assigned at Female 01/14/2021 7:41 PM INSPECTOR TOOL Legal Sex Female 6:11 PM CDT Gender Identity Female 01/14/2021 7:41 PM INSPECTOR TOOL Sexual Orientation Straight 01/14/2021 7: 41 PM INSPECTOR TOOL documented as of this encounter Miscellaneous Notes * Telephone Encounter - Yaya Elizalde RN - 11/19/2016 9:34 AM CST Pt's PCP, Dr. Traylor is at [facility], routing to PCP. Please advise. Yaya Elizalde RN, BSN ECTOR TOOL * Telephone Encounter - Kayla Sandoval RN - 11/19/2016 7:15 AM INSPECTOR TOOL Lisinopril Last Written Prescription Date: 10/31/16 Last Fill Quantity: 30, # refills: 0 Last Office Visit with G, P or [facility] prescribing provider: 11/12/16 Next 5 appointments (look out 90 days) Dec 07, 2016 11:30 AM Return Visit with Dennys Acosta MD [facility] ([facility] [address] [place] [phone] POTASSIUM Date Value Ref Range Status 11/12/2016 4.6 3.4 - 5.3 mmol/L Final CREATININE Date Value Ref Range Status 11/12/2016 1.48* 0.52 - 1.04 mg/dL Final BP Readings from Last 3 Encounters: 11/12/16 130/80 10/31/16 127/88 12/19/16 102/70 ECTOR TOOL documented in this encounter Plan of Treatment Not on file documented as of this encounter Visit Diagnoses Diagnosis Heart failure with reduced ejection fraction, NYHA class II (H)- Primary documented in this encounter Additional Health Concerns Infection Onset Date Last Indicated Resolved Time Rule Out COVID-19 09/26/2020 09/26/2020 09/27/2020 5:31 PM INSPECTOR TOOL Rule Out COVID-19 05/28/2022 05/28/2022 05/28/2022 8:56 PM CDT Rule Out COVID-19 07/03/2022 07/03/2022 07/03/2022 6:55 PM CDT Assessment Noted Time PHQ-9 Depression Total Score: 3 11/13/19 17 7:08 AM INSPECTOR TOOL documented as of this encounter Care Teams Aluminum Molder Relationship Specialty Start Date End Date Leti Traylor MD PCP - General Family Practice 07/20/16 06/02/17 Chu Cruz PA-C [address] [address] PCP - General Physician Imaging Manager 07/07/17 Chu Cruz PA-C [address] [address] PCP - Assigned PCP 11/14/17 01/10/19 Minna Chawla RN [address] [address] Traffic Maintenance Officer Diabetes Education 06/30/18 Minna Chawla RN [address] [address] Traffic Maintenance Officer Diabetes Education 06/30/18 Chu Cruz PA-C [address] [id number] Assigned PCP 11/14/17 Lisa Riggs, RN Clinic Sweater Designer Primary Care - CC 06/14/2006/16 Dario Potter MD [address] [place] [address] [id number] Assigned Musculoskeletal Provider 08/30/20 01/10/22 Luis Miguel Woodson MD Assigned Heart and Vascular Provider 08/30/20 06/26/22 Matheus Medina MD [address] [place] [address] Assigned Surgical Provider 08/30/20 11/30/20 Daisy Mejia, WAQAR [address] [facility] [address] [place] [address], [place] [address] Assigned Neuroscience Provider 09/07/21 03/05/23 Aruna Mart [address] [place] [address] Traffic Maintenance Officer 01/16/22 Chris Ricketts DPM [address] [place] [address] [place] [address] Assigned Musculoskeletal Provider 01/11/22 12/11/22 Chris Rikcetts DPM [address] [place] [address] [place] [address] Assigned Surgical Provider 12/12/22 02/28/24 Clem Maynard MD [address] [place] [address] Cardiovascular Disease 01/07/23 Clem Maynard MD [address] [place] [address] Assigned Heart and Vascular Provider 01/16/23 07/30/24 documented as of this encounter
--- OUTSIDE RECORDS SUMMARY | 2025-08-22 00:17 | XMS_ITS | Encounter Summary ---
Author Organization [place] Address [facility] [place] [address] Care Team Providers Care Shadowgraph Scale Operator Name Role Phone Chu Cruz PA-C Primary Care Provider Minna Chawla RN Unavailable Unavailable Minna Chawla RN Unavailable Unavailable Chu Cruz PA-C Unavailable [phone] Luis Miguel Woodson MD Unavailable Unavailable Daisy Mejia LICENSING DIRECTOR Unavailable Aruna Mart Unavailable Chris Ricketts DPM Unavailable Chris Ricketts DPM Unavailable Clem Maynard MD Unavailable Unavailable Clem Maynard MD Unavailable Unavailable Encounter Details Date Type Department Care Team (Late st Contact Info) Description 06/03/2022 [facility] Medical Advice [address] [phone] Radha Fung, RN Social History [...] Sex Assigned at Female 01/14/2021 7:41 PM TURBO ELECTRIC OPERATOR Legal Sex Female 6:11 PM CDT Gender Identity Female 01/14/2021 7:41 PM TURBO ELECTRIC OPERATOR Sexual Orientation Straight 01/14/2021 7: 41 PM TURBO ELECTRIC OPERATOR COVID-19 Exposure Response Date Recorded In the [...] documented as of this encounter Care Teams Shadowgraph Scale Operator Relationship Specialty Start Date End Date Chu Cruz PA-C [address] [address] PCP - General Physician Lead Database Administrator 07/07/17 Minna Chawla RN [address] [address] Roof Service Technician Diabetes Education 06/30/18 Minna Chawla RN [address] [address] Roof Service Technician Diabetes Education 06/30/18 Chu Cruz PA-C [address] [address] Assigned PCP 11/14/17 Luis Miguel Woodson MD Assigned Heart and Vascular Provider 08/30/20 06/26/22 Daisy Mejia NP [address] [address] Assigned Neuroscience Provider 09/07/21 03/05/[address] [facility] [address] [address] Roof Service Technician 01/16/22 Chris Ricketts DPM [address] [facility] [place] [address] Assigned Musculoskeletal Provider 01/11/22 12/11/22 Chris Ricketts DPM [address] [facility] [place] [address] Assigned Surgical Provider 12/12/22 02/28/24 Clem Maynard MD [address] [facility] [place] [address] Cardiovascular Disease 01/07/23 Clem Maynard MD [address] [facility] [place] [address] Assigned Heart and Vascular Provider 01/16/23 07/30/24 documented as of this encounter
--- OUTSIDE RECORDS SUMMARY | 2025-08-22 00:18 | XMS_ITS | Encounter Summary ---
Author Organization [place] Address [facility] [place] [address] Care Team Providers Care Business Analytics Manager Name Role Phone Leti Traylor MD Primary Care Provider [phone] Chu Cruz PA-C Primary Care Provider Minna Chawla RN Unavailable Unavailable Minna Chawla RN Unavailable Unavailable Chu Cruz PA-C Unavailable [phone] Chu Cruz PA-C Unavailable [phone] Lisa Riggs RN Unavailable [phone] Dario Potter MD Unavailable [phone] Luis Miguel Woodson MD Unavailable Unavailable Matheus Medina MD Unavailable [phone] Daisy Mejia NP Unavailable Aruna Mart Unavailable [phone] Chris Ricketts DPM Unavailable [phone] Chris Ricketts DPM Unavailable [phone] Clem Maynard MD Unavailable Unavailable Clem Maynard MD Unavailable Unavailable Reason for Visit * Reason Comments Medication Refill Amiodarone Encounter Details Date Type Department Care Team (Late st Contact Info) Description 01/14/[address] [place] [address] Leti Traylor MD [facility] [address] [place] [address] Medication Refill (Amiodarone) Social History Tobacco Use Types Packs/Day Years Used Date Smoking Tobacco: Former Alcohol Use Standard Drinks/Week Comments Yes 0 (1 standard drink = 0.6 oz pur e alcohol) rarely Comments No Sex and Gender Information Value Date Recorded Sex Assigned at Female 01/14/2021 7:41 PM REGIONAL VICE PRESIDENT SURGICAL SALES Legal Sex Female 6:11 PM CDT Gender Identity Female 01/14/2021 7:41 PM REGIONAL VICE PRESIDENT SURGICAL SALES Sexual Orientation Straight 01/14/2021 7: 41 PM REGIONAL VICE PRESIDENT SURGICAL SALES documented as of this encounter Miscellaneous Notes * Telephone Encounter - Mariann Oliveira RN - 01/18/2017 8:08 AM CDT Routing refill request to provider for review/approval because: Drug not on the [facility] refill protocol A break in medication, should have completed medication 12/13/2016 Mariann Oliveira RN * Telephone Encounter - Gregorio Hutchinson - 01/14/2017 1:53 PM CST Amiodarone Last Written Prescription Date: 11/12/2016 Last Fill Quantity: 30, # refills: 0 Last Office Visit with [facility] prescribing provider: 11/12/2016 Lab Results Component [...] Final Gregorio Hutchinson MA January 14, 2017 ONAL VICE PRESIDENT SURGICAL SALES documented in this encounter Plan of Treatment Not on file documented as of this encounter Visit Diagnoses Diagnosis Atrial fibrillation with RVR (H) Atrial fibrillation documented in this encounter Additional Health Concerns Infection Onset Date Last Indicated Resolved Time Rule Out COVID-19 09/26/2020 09/26/2020 09/27/2020 5:31 PM REGIONAL VICE PRESIDENT SURGICAL SALES Rule Out COVID-19 05/28/2022 05/28/2022 05/28/2022 8:56 PM CDT Rule Out COVID-19 07/03/2022 07/03/2022 07/03/2022 6:55 PM CDT Assessment Noted Time PHQ-9 Depression Total Score: 3 11/13/19 17 7:08 AM REGIONAL VICE PRESIDENT SURGICAL SALES documented as of this encounter Care Teams Business Analytics Manager Relationship Specialty Start Date End Date Leti Traylor MD PCP - General Family Practice 07/20/16 06/02/17 Chu Cruz PA-C [address] [address] PCP - General Physician Education Program Manager 07/07/17 Chu Cruz PA-C [address] [address] PCP - Assigned PCP 11/14/17 01/10/19 Minna Chawla RN [address] [address] Seo Coordinator Diabetes Education 06/30/18 Minna Chawla, RN 290 [facility] [address] [place] [address] Seo Coordinator Diabetes Education 06/30/18 Chu Cruz PA-C 290 [facility] [address] [place] [address] Assigned PCP 11/14/17 Lisa Riggs RN Clinic Disassembler Product Primary Care - CC 06/14/2006/16 Dario Potter MD [address] [place] [address] [id number] Assigned Musculoskeletal Provider 08/30/20 01/10/22 Luis Miguel Woodson MD Assigned Heart and Vascular Provider 08/30/20 06/26/22 Matheus Medina MD [address] [place] [address] Assigned Surgical Provider 08/30/20 11/30/20 Daisy Mejia, MEDICAL LABORATORY ASSISTANT 6545 [facility] [address] [place] [address] Assigned Neuroscience Provider 09/07/21 03/05/23 Aruna Mart [address] [place] [address] Seo Coordinator 01/16/22 Chris Ricketts DPM [address] [place] [address] [place] [address] Assigned Musculoskeletal Provider 01/11/22 12/11/22 Chris Ricketts DPM [address] [place] [address] [place] [address] Assigned Surgical Provider 12/12/22 02/28/24 Clem Maynard MD 919 [facility] [place] [address] Cardiovascular Disease 01/07/23 Clem Maynard MD 919 [facility] [place] [address] Assigned Heart and Vascular Provider 01/16/23 07/30/24 documented as of this encounter
--- OUTSIDE RECORDS SUMMARY | 2025-08-22 00:18 | XMS_ITS | Clinical Summary ---
Author Organization [facility] Address [address] [place] [address] Care Team Providers Care Health Informatics Instructor Name Role Phone Elsewhere, Pcp Primary Care Provider Unavailabl e Source Comments Patient records contain information from all sites at [facility]. For routine questions regarding patient records, call [phone] during business hours, M-F 8:00 AM - 5:00 PM Central Time. Record requests for emergency care only can be directed to [phone] at any time.[facility] Allergies Active Allergy Reactions Criticality Noted Date [...] affected joints up to 4 times daily. Active pregabalin (Lyrica) 25 mg capsule Take [...] hematomas. Assessment & Plan (11/24/2024 9:16 PM BONE GRINDER): Pain management with acetaminophen, oxycodone, pregabalin. She is working with therapies. Fracture Sacrum Closed Subsequent 11/24/2024 Overview (11/24/2024): Comminuted fracture of the left pubic symphysis and adjacent pubic rami. Small- volume adjacent blood products and intramuscular hematomas. Mildly displaced fracture of the left sacral ala. Assessment & Plan (11/24/2024 9:16 PM BONE GRINDER): Discharged to [facility] [place]. Acetaminophen, pregabalin, and oxycodone for pain control. Apixaban continued. Pacemaker Cardiac Status Post 11/24/2024 Assessment & Plan (11/24/2024 9:16 PM BONE GRINDER): Most recent pacemaker interrogation visible In Epic from 2022. She does get her care through [facility] and [facility]. History Of Falling 11/24/2024 Overview (11/24/2024): Fall 10/30/2024 resulting in sacrum and pubis fractures. Assessment & Plan (11/24/2024 9:16 PM BONE GRINDER): She is working with therapies to improve strength, stamina, balance. 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 Assessment & Plan (11/24/2024 9:16 PM BONE GRINDER): Assessment & Plan (11/24/2024 9:16 PM BONE GRINDER): Continue apixaban. Fracture Sacrum Closed Initial 10/30/2024 Atrial Fibrillation Longstanding Persistent 10/09 Assessment & Plan (11/24/2024 9:16 PM BONE GRINDER): Continue metoprolol and apixaban. Chronic Kidney Disease (CKD), Stage 3 Unspecifie d 10/30/2024 Overview (11/24/2024): Hospitalization October 2024 Acute on chronic kidney injury with creatinine increased to 2.06 from baseline of 1.5. This was felt secondary to urine retention, urine infection, venous congestion, prerenal. Assessment & Plan (11/24/2024 9:16 PM BONE GRINDER): Most recent GFR 27. Creatinine downtrending. Diabetes Mellitus Type 2 10/30/2024 Assessment & Plan (11/24/2024 9:16 PM BONE GRINDER): Most recent A1c 8.8. On short-acting, long-acting insulins and dapagliflozin as therapeutic interchange for empagliflozin. Blood sugars checked 4 times daily. Generally in the 1 to 200s. Block Atrioventricular Complete 10/30/2024 Hyperlipidemia 10/30/2024 Delirium (not otherwise specified) 01/20/2024 Change Mental Status 01/19/2024 Elevated Troponin 01/19/2024 Pain Chest 01/24/2023 Encounters Date Type Department Care Team Description 06/12/2025 Orders Only [facility] Maggie Gallardo, P.A.-C. Diabetes Mellitus Type 2 (HCC) from Last 3 Months Immunizations Immunization Administration [...] pur e alcohol) [facility] Utilities Answer Date Recorded In the past 12 months has [employer], oil, or water [employer] threatened to shut off services in your [...] things needed for daily living? No 10/30/2024 Housing Stability Answer Date Recorded What is your living situation today? I have a [facility] to live 10/30/2024 Comments Unknown Sex and Gender Information Value Date Recorded Sex Assigned at Not on file Legal Sex Female 6:45 PM CDT Gender Identity Not on file Sexual Orientation Not on file Last Filed Vital Signs Vital Sign Reading Time Taken Comments Blood Pressure 135/63 11/10/2024 7:30 AM BONE GRINDER Pulse 61 11/10/2024 7:30 AM BONE GRINDER Temperature 36.6 C (97.8 F) 11/10/2024 7:30 AM BONE GRINDER Respiratory Rate 18 11/10/2024 7:30 AM BONE GRINDER Oxygen Saturation 96% 11/10/2024 7:30 AM BONE GRINDER Inhaled Oxygen Concentration - - Weight 90.7 kg (200 lb) 11/10/2024 7:30 AM BONE GRINDER Height 165 cm (5' 4.96) 10/31/2024 12:43 PM BONE GRINDER Body Mass Index 33.32 10/31/2024 12:43 PM BONE GRINDER Plan of Treatment Health Maintenance Due Date Last Done Comments Diabetic Eye Exam 1935 Diabetic Office Visit with Foot Exam 1935 Urine Albumin 1935 Hepatitis B Vaccines (1 of 3 - Risk 3-dose series) 1996 Zoster Vaccines (2 of 2) 04/20/2023 02/23/2023 Depression Screening (Annual PHQ-2) 11/08/2024 Fall Risk Screen (Annual) 11/08/2024 Hemoglobin A1C 02/20/2025 11/22/2024, 10/09, 01/19/2024, Additional history exists COVID-19 Vaccine ( season) 2025 10/25/2024, 08/27/2023, 10/15/2022, Additional history exists Influenza Vaccine (#1) 2025 , 08/27/2023, 08/17/2022, Additional history exists Creatinine Level (Kidney Function Test) 05/09/2026 05/09/2025, 04/18/2025, 03/28/2025, Additional history exists Potassium Level 05/09/2026 05/09/2025, 04/08, 03/28/2025, Additional history exists Sodium Level 05/09/2026 05/09/2025, 04/08, 03/28/2025, Additional history exists DTaP,Tdap,and Td Vaccines (2 - Td or Tdap) 05/16/2031 05/16/2021 Pneumococcal vaccine (50+ years) Completed 11/17/2017, 08/10/2016 RSV vaccine - (32-36 weeks) or 50+ years Completed 08/27/2023 IPV Vaccines Aged Out No longer eligi ble based on patient's age to complete this topic Medical Devices Implanted Type Area Mailroom Assistant Device Identifier Shelf Expiration Date Model / Serial / Lot Medtronic 4076 Capsurefix Novus Mri Surescan [id number] Implanted:07/2011 (Quantity not on file) Cardiac Lead Medtronic 4076 CAPSUREFIX NOVUS MRI SURESCAN / [id number] / Medtronic 4076 Capsurefix Novus Mri Surescan [id number] Implanted:07/2011 (Quantity not on file) Cardiac Lead Medtronic 4076 CAPSUREFIX NOVUS MRI SURESCAN / [id number] / Medtronic [id number] [place] Xt [address] Barnes [id number] Implanted:12/09 (Quantity not on file) Pacemaker Medtronic [id number] BARNES / [id number] / Procedures Procedure Name Priority Date/Time Associated Diagnosis Comments RENAL FUNCTION PANEL, S Timed 11/07/2024 4:56 AM BONE GRINDER HEMOGLOBIN A1C, B Routine 11/02/2024 10: 14 PM BONE GRINDER from Last 3 Months or Most Recently Relevant to Health Maintenance Results * (ABNORMAL) Renal Function Panel (11/07/2024 4:56 AM BONE GRINDER) [facility] Potassium, S 4.8 3.6 - 5.2 mmol/L 11/07/2024 6:17 AM BONE GRINDER DTL Sodium, S 139 135 - 145 mmol/L 11/07/2024 6:17 AM BONE GRINDER DTL Chloride, S 103 98 - 107 mmol/L 11/07/2024 6:17 AM BONE GRINDER DTL Bicarbonate, S 25 22 - 29 mmol/L 11/07/2024 6:17 AM BONE GRINDER DTL Anion Gap 11 7 - 15 11/07/2024 6:17 AM BONE GRINDER DTL BUN (Blood Urea Nitrogen), S 59(H) 6 - 21 mg/dL 11/07/2024 6:17 AM BONE GRINDER DTL Creatinine 1.81(H) 0.59 - 1.04 mg/dL 11/07/2024 6:17 AM BONE GRINDER DTL Estimated GFR (eGFR) 27(L) >=60 mL/min/BSA 11/07/2024 6:17 AM BONE GRINDER DTL Comment: Estimated GFR calculated using the 2020 CKD_EPI creatinine equation. Calcium, Total, S 9.1 8.8 - 10.2 mg/dL 11/07/2024 6:17 AM BONE GRINDER DTL Glucose, S 179(H) 70 - 140 mg/dL 11/07/2024 6:17 AM BONE GRINDER DTL Albumin, S 3.1(L) 3.5 - 5.0 g/dL 11/07/2024 6:17 AM BONE GRINDER DTL Phosphorus (Inorganic), S 4.5 2.5 - 4.5 mg/dL 11/07/2024 6:17 AM BONE GRINDER DTL Blood (Blood, Venous) 11/07/2024 4:56 AM BONE GRINDER 11/07/2024 5:57 AM BONE GRINDER us Joshua Sharif Jr., M.D. LAB BLOOD ADD-ON Final Result Performing Organization Address City/[facility] Co de Phone Number [facility] [address] [place] [address], [facility] [place] [address] [place] [address] * (ABNORMAL) Hemoglobin A1c (11/02/2024 10:14 PM BONE GRINDER) [facility] Hemoglobin A1c, B 8.8(H) 4.0 - 5.6 % 11/02/2024 10:56 PM BONE GRINDER DTL Comment: Hemoglobin A1c values greater than or equal to 6.5 percent are diagnostic for diabetes mellitus. Diagnosis should be confirmed by repeat testing. In diabetic patients, HbA1c goals should be discussed with healthcare provider. Blood (Blood, Venous) 11/02/2024 10:14 PM BONE GRINDER 11/02/2024 10:40 PM BONE GRINDER John Woodson APRN, C.N.P. LAB BLOOD ADD-ON Final Result [facility] [place] [address] [place] [address], [facility] [place] [address] [place] [address] from Last 3 Months or Most Recently Relevant to Health Maintenance Insurance * Guarantor: Hayde Fong Account Type Relation to Patient Date of Phone Billing Address Personal/Family Self [address] [place] [address] [facility] MEDICARE Advance Directives For more information, please contact: [phone] * DNR/DNI (Latest Code Status on File) [...] 2:14 AM 01/29/2023 5:02 PM Care Teams Health Informatics Instructor Relationship Specialty Start Date End Date Elsewhere, Pcp PCP - General Internal Medicine 07/23/25
== END 2025-08-21 15:20 | disposition home or self-care (01) ==
LOC: NPINS 15:19
PROVIDERS: PCP Nurse Practitioner Family; Visit Provider Nurse Practitioner Gerontology
DX: E11.29 Type 2 diabetes mellitus with other diabetic kidney complication (principal); I48.20 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 fibrillation, unspecified
CPT/HCPCS: 80053; 83036; 85025

== ENCOUNTER 2025-08-25 12:39 | Outpatient (CLI) | payer MEDICARE, BC, MEDICAID, SELFPAY | END 2025-08-25 12:40 | disposition home or self-care (01) | PROVIDERS: PCP Nurse Practitioner Family; Visit Provider Family Medicine | DX: M25.551 Pain in right hip (principal); T81.9XXA Unspecified complication of procedure, initial encounter | CPT/HCPCS: A0425; A0429 ==